=== PATIENT | female | born 1975 | race Caucasian/White ===

== ENCOUNTER 2024-05-06 12:21 | Emergency (ER) | payer OTHER, SELFPAY ==
[2024-05-06] VITALS (42 sets, daily range): BP systolic 104–148; BP diastolic 77–100; PULSE 100–128; TEMP 36.8; O2SAT 90–97; BMI 28.3
--- NOTE | 2024-05-06 12:26 | XR_ITS ---
The [address] [address] Patient Name: FLASH IRVING MRN: [id number] date: 1975 Sex: F Assigned Patient Location: ER Current Patient Location: ER Accession/Order Number: [id number] Exam Date: 05/06/2024 12:40 Report Date: 05/06/2024 13:48 At the request of: FABIANO SPANGLER Procedure: XR chest 1V EXAM: XR chest 1V HISTORY: SOB COMPARISON: None. TECHNIQUE: AP portable upright chest x-ray FINDINGS: Lungs are diffusely abnormal with groundglass density prominent markings most prominent left lower lung field also present on the right. Left upper lung field clear. Findings most suggestive of pneumonia may be bilateral although there may be a complement of chronic interstitial lung disease. Asymmetric edema from CHF felt to be less likely. Heart size enlarged. Right hilum prominent question prominent pulmonary artery or adenopathy/mass. No definite pleural effusion or pneumothorax. XR/XR chest 1V IMPRESSION: 1. Diffusely abnormal lung domínguez question bilateral pneumonia although there may be a component of chronic interstitial lung disease. Follow-up recommended. 2. Cardiac silhouette enlarged. 3 Prominent soft tissue right hilum question adenopathy/mass versus a prominent pulmonary artery. Electronically authenticated by: KRISH STALLINGS Date: 05/06/2024 13:48
--- NOTE | 2024-05-06 12:26 | ECG_ITS ---
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
[2024-05-06 12:43] LABS: Basophils Percent Auto 0.1 % (0.2-2.0); Eosinophils Absolute Auto 0.2 10^3/uL (0.0-0.7); Hematocrit 43.2 % (36.0-48.0); Hemoglobin 13.8 g/dL (12.0-16.0); Immature Granulocytes Abs Auto 0.07 10^3/uL (0.00-0.03); Immature Granulocytes Pct Auto 0.5 % (0.0-0.5); Lymphocytes Absolute Auto 1.4 10^3/uL (1.2-3.8); Lymphocytes Percent Auto 9.3 % (20.5-60.0); Mean Corpuscular HGB Conc 31.9 g/dL (29.9-35.2); Mean Corpuscular Hemoglobin 26.1 pg (26.7-34.0); Mean Corpuscular Volume 81.8 fL (81.0-99.0); Mean Platelet Volume 10.2 fL (9.5-13.5); Monocytes Absolute Auto 0.9 10^3/uL (0.3-0.8); Monocytes Percent Auto 6.1 % (1.7-12.0); Neutrophils Absolute Auto 12.8 10^3/uL (1.4-6.5); Platelet Count 185 10^3/uL (150-450); Red Blood Count 5.28 10^6/uL (4.20-5.40); Red Cell Distribution Width 14.1 % (11.0-15.0); White Blood Count 15.4 10^3/uL (4.0-11.0)
[2024-05-06 13:03] LABS: Anion Gap 11.4; BUN Creatinine Ratio 11.8; Calcium 8.8 mg/dL (8.5-10.1); Carbon Dioxide 27.5 mmol/L (21.0-32.0); Chloride 101 mmol/L (98-107); Estimated GFR (African America >60 (>=60); Estimated GFR (Non-African Ame >60 (>=60); Glucose 123 mg/dL (74-106); Sodium 137 mmol/L (136-145); Troponin I High Sensitivity 5.2 pg/mL (4.0-51.3)
[2024-05-06 13:05] LABS: Potassium 2.9 mmol/L (3.5-5.1)
[2024-05-06] MEDS: METHYLPREDNISOLONE SOD SUCC PF 125 MG/2 ML VIAL IVP (13:05)
[2024-05-06] MEDS: ALBUTEROL SULFATE 2.5 MG/3 ML VIAL NEB IH (13:06)
[2024-05-06] MEDS: MORPHINE SULFATE 4 MG/ML VIAL IV (13:37)
--- NOTE | 2024-05-06 13:51 | CT_ITS ---
The [address] [address] Patient Name: FLASH IRVING MRN: [id number] date: 1975 Sex: F Assigned Patient Location: ER Current Patient Location: Accession/Order Number: [id number] Exam Date: 05/06/2024 14:13 Report Date: 05/06/2024 15:21 At the request of: FABIANO SPANGLER Procedure: CT angio chest EXAM: CT angio chest TECHNIQUE: Axial CT angiogram technique imaging was obtained of the chest following intravenous contrast administration and including sagittal and coronal slab maximum intensity projection images. Dose reduction techniques were achieved by using automated exposure control and/or adjustment of mA and/or kV according to patient size and/or use of iterative reconstruction technique. 3-D volume rendering was created of the chest vasculature. HISTORY: History of pulmonary fibrosis, rule out PE COMPARISON: None. FINDINGS: Neck and Axilla: No lower neck or axillary lymphadenopathy. Mediastinum and Yulissa: No hilar or mediastinal lymphadenopathy. The esophagus is grossly unremarkable without dilatation or gross mass lesion. Heart and Major Vessels: The heart is enlarged. The aorta and central pulmonary arteries are unremarkable for size.No pulmonary artery filling defects to suggest acute pulmonary embolism. Evaluation of the pulmonary arteries is limited by low lung volumes and significant breathing motion artifact Lung Michael: Severe emphysematous change at the left lung apex and superior segment right lower lobe. Diffuse bilateral interstitial thickening. Groundglass attenuation throughout the right upper lobe in the lower lobes. Pleural Spaces: No significant pleural effusion. No pneumothorax. Upper Abdomen: Mildly displaced fracture of left second rib anteriorly, with sclerotic margins suggesting it is chronic and unhealed. Chest Wall: No acute abnormality. CT/CT angio chest IMPRESSION: No evidence for acute pulmonary embolism. Bilateral groundglass airspace disease and interstitial thickening suspicious for an atypical inflammatory or infectious process. Edema is possible. Overall evaluation is significantly limited by breathing motion artifact throughout the lower lungs. Unhealed chronic appearing fracture of left second rib anteriorly. Electronically authenticated by: GALDINO GALVAN Date: 05/06/2024 15:21
[2024-05-06] MEDS: CEFTRIAXONE 1,000 MG in 0.9 % SODIUM CHLORIDE 50 ML 100 MG IV (15:14)
--- NOTE | 2024-05-06 15:29 | ED.GENADUL1 ---
HPI HPI - General Adult General Chief complaint: Shortness of Breath/Dyspnea Stated complaint: SOB Time Seen by Provider: 05/06/24 12:22 Source: patient and family Mode of arrival: ambulance Limitations: no limitations History of Present Illness HPI narrative: 49-year-old female presents for shortness of breath. She has a history of pulmonary fibrosis and this came on this morning. She has some pain in the left upper part of her chest, no trauma. She has had no hemoptysis or known fever. She did have a pneumothorax years ago. No vomiting or diarrhea. Symptom has been continuous. Related Data Allergies Allergy/AdvReac Type Severity Reaction Status Date / Time nitroglycerin AdvReac Unknown Verified 05/06/24 12:28 Opioid HPI Opioid Management Most Recent Opioid Data: No Data to Display Review of Systems ROS Narrative A ten point review of systems is negative except as noted above. Exam Narrative Exam Narrative: Nurses note and vital signs reviewed and patient is not hypoxic. General: The patient appears dyspneic. Skin: Warm, dry, no pallor noted. There is no rash noted. No cyanosis Head: Normocephalic, atraumatic Eye: Normal conjunctiva, no drainage Ears, Nose, Mouth, and Throat: oral mucosa is moist. Nares patent. Cardiovascular: Regular Rate and Rhythm Respiratory: She is dyspneic. Breath sounds are diminished on the left upper part of her chest. Back: non-tender GI: Soft and nontender Musculoskeletal: The patient has no evidence of calf tenderness, no pitting edema, symmetrical pulses noted bilaterally Neurological: Awake and alert Psychiatric: Cooperative Constitutional Vital Signs, click to edit/add: Last Vital Signs Temp 98.3 F 05/06/24 12:22 Pulse 106 H 05/06/24 15:10 Resp 25 H 05/06/24 15:10 BP 120/81 05/06/24 15:16 Pulse Ox 92 L 05/06/24 15:10 O2 Del Method Nasal Cannula 05/06/24 13:07 O2 Flow Rate 5 05/06/24 13:07 Course Vital Signs Vital signs: Vital Signs Blood Pressure 148/100 H 05/06/24 12:21 Temperature 98.3 F 05/06/24 12:22 Pulse Rate 106 H 05/06/24 15:10 Respiratory Rate 25 H 05/06/24 15:10 Blood Pressure 120/81 05/06/24 15:16 Pulse Oximetry 92 L 05/06/24 15:10 Oxygen Delivery Method Nasal Cannula 05/06/24 13:07 Oxygen Delivery Flow Rate 5 05/06/24 13:07 Medical Decision Making MDM Narrative Medical decision making narrative: Extensive workup suggest pneumonia. She does not have a pneumothorax or pulmonary embolism. She was given IV Rocephin and Zithromax and IV morphine and she was feeling improved. She was also given aerosol treatment and IV Solu-Medrol. She is requesting transfer to [facility]. I have spoken to the hospitalist there and the patient is excepted. She is agreeable and stable for transfer. Differential Diagnosis Differential Diagnosis: PE, pneumothorax, pneumonia, pulmonary fibrosis exacerbation Lab Data Lab results reviewed: Yes I reviewed the patient's lab results Labs: Lab Results 05/06/24 Range/Units 12:30 WBC 15.4 H (4.0-11.0) 10^3/uL RBC 5.28 (4.20-5.40) 10^6/uL Hgb 13.8 (12.0-16.0) g/dL Hct 43.2 (36.0-48.0) % MCV 81.8 (81.0-99.0) fL MCH 26.1 L (26.7-34.0) pg MCHC 31.9 (29.9-35.2) g/dL RDW 14.1 (11.0-15.0) % Plt Count 185 (150-450) 10^3/uL MPV 10.2 (9.5-13.5) fL Neut % (Auto) 83.0 H (43.0-75.0) % Lymph % (Auto) 9.3 L (20.5-60.0) % [place] % (Auto) 6.1 (1.7-12.0) % Eos % (Auto) 1.0 (0.9-7.0) % Baso % (Auto) 0.1 L (0.2-2.0) % Neut # (Auto) 12.8 H (1.4-6.5) 10^3/uL Lymph # (Auto) 1.4 (1.2-3.8) 10^3/uL [place] # (Auto) 0.9 H (0.3-0.8) 10^3/uL Eos # (Auto) 0.2 (0.0-0.7) 10^3/uL Baso # (Auto) 0.0 (0.0-0.1) 10^3/uL Abs Immat Gran (auto) 0.07 H (0.00-0.03) 10^3/uL Imm/Tot Granulo (auto) 0.5 (0.0-0.5) % Sodium 137 (136-145) mmol/L Potassium 2.9 L* (3.5-5.1) mmol/L Chloride 101 (98-107) mmol/L Carbon Dioxide 27.5 (21.0-32.0) mmol/L Anion Gap 11.4 BUN 9.0 (7.0-18.0) mg/dL Creatinine 0.76 (0.55-1.02) mg/dL Est GFR ( Amer) >60 (>=60) Est GFR (Non-Af Amer) >60 (>=60) BUN/Creatinine Ratio 11.8 Glucose 123 H (74-106) mg/dL Calcium 8.8 (8.5-10.1) mg/dL Troponin I High Sens 5.2 (4.0-51.3) pg/mL Imaging Data Chest x-ray: Radiologist's impression: ITS Impressions Chest X-Ray 05/06/24 12:26 IMPRESSION: 1. Diffusely abnormal lung domínguez question bilateral pneumonia although there may be a component of chronic interstitial lung disease. Follow-up recommended. 2. Cardiac silhouette enlarged. 3 Prominent soft tissue right hilum question adenopathy/mass versus a prominent pulmonary artery. Electronically authenticated by: KRISH STALLINGS Date: 05/06/2024 13:48 Chest CTA 05/06/24 13:51 IMPRESSION: No evidence for acute pulmonary embolism. Bilateral groundglass airspace disease and interstitial thickening suspicious for an atypical inflammatory or infectious process. Edema is possible. Overall evaluation is significantly limited by breathing motion artifact throughout the lower lungs. Unhealed chronic appearing fracture of left second rib anteriorly. Electronically authenticated by: GALDINO GALVAN Date: 05/06/2024 15:21 ECG Data Attestation: I personally reviewed and interpreted this ECG as follows: (EKG on my interpretation shows sinus tachycardia with a rate of 114. No ST segment elevation) Critical Care Time Critical Care Time Critical Care Time: Yes Total Critical Care Time: 40 Attestation: Due to the high probability of sudden and clinically significant deterioration in the patient's condition he/she required the highest level of my preparedness to intervene urgently I provided critical care time including documentation time, medication orders and management, reevaluation, vital sign assessment, ordering and reviewing of lab tests, ordering and reviewing of x-ray studies, and admission orders. Aggregate critical care time is 40 minutes including only time during which I was engaged in work directly related to his/her care and did not include time spent treating other patients simultaneously. Discharge Plan Discharge Chief Complaint: Shortness of Breath/Dyspnea Clinical Impression: Pneumonia due to organism Patient Disposition: [facility] Time of Disposition Decision: 15:32 Discharge Location: [facility] Condition: Fair Mode of Transportation: EMS
[2024-05-06] MEDS: AZITHROMYCIN 500 MG in 0.9 % SODIUM CHLORIDE 250 ML 250 MG IV (15:45)
[2024-05-06] MEDS: POTASSIUM BICARBONATE/CIT 25 MEQ TABLET EFF 50 MEQ PO (16:35)
== END 2024-05-06 17:25 | disposition short-term general hospital (02) ==
PROVIDERS: Emergency Provider Emergency Medicine
DX: J18.9 Pneumonia, unspecified organism (principal); J84.10 Pulmonary fibrosis, unspecified
CPT/HCPCS: 36415; 71045; 71275; 80048; 84484; 85025; 87040; 93005; 94640; 96365; 96367; 96375; 99285; J0456; J0696; J2270; J2919; Q9967

== ENCOUNTER 2025-04-18 14:29 | Emergency (ER) | payer OTHER, SELFPAY ==
[2025-04-18 14:34] VITALS: BP 122/76; PULSE 114; TEMP 37.2; O2SAT 91; BMI 28.3
--- NOTE | 2025-04-18 14:48 | PC.NURSE ---
PT HAS A SUBQ DEVICE TO LEFT LOWER ABDOMEN THAT DELIVERS MEDICATION FOR PULMONARY HTN. PT STATES WHEN APPLIED DEVICE IS GOD FOR 8 WEEKS AND PT HAD DEVICE ON FOR 1 WEEK AND SKIN IS RED, TENDER AND HAD PURULENT DRAINAGE WHERE DEVICE WAS AT. 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
[2025-04-18] MEDS: LIDOCAINE HCL 1% PF 20 MG/2 ML VIAL INJ (14:59)
--- NOTE | 2025-04-18 15:22 | ED.GENADUL1 ---
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 Patient states that she has a subcutaneous pump for her pulmonary Irving hypertension. She has had recurrent soft tissue infections because of this. She states that over the last 3 days, she has had another infection on her abdominal wall. She since has changed the injection site. She states that she was able to drain a good amount of pus from the abscess earlier today. She denies any fevers or chills. She has no other systemic symptoms such as nausea, vomiting, constipation, diarrhea, chest pain, shortness of breath. She states she is short of breath, but this is chronic and at her baseline. Related Data Previous Rx's ?Medication ?Instructions ?Recorded sulfamethoxazole 800 1 tab PO Q12H 7 days #14 tabs 04/18/25 mg-trimethoprim 160 mg tablet (Bactrim DS) Allergies Allergy/AdvReac Type Severity Reaction Status Date / Time nitroglycerin AdvReac Unknown Verified 05/06/24 12:28 Review of Systems ROS Status of ROS 10 or more systems reviewed and unremarkable except as noted in history and below PFSH PFSH Social History Little interest or pleasure in doing things: not at all Feeling down, depressed, or hopeless: not at all Exam Narrative Exam Narrative: CONSTITUTIONAL: Well-appearing, answering questions and following commands appropriately SKIN: Was warm and dry. EYES: Sclerae white. EARS, NOSE, THROAT: Moist oral mucosa. RESPIRATORY: Clear to auscultation bilaterally, no wheezes, crackles, or stridor, no use of accessory muscles CARDIOVASCULAR: Normal rate and regular rhythm. There is no S3, S4, murmur, rub. GASTROINTESTINAL: On the anterior abdomen, a few centimeters left of midline, there is a annular area of erythema, induration, and mild fluctuance. There is no crepitus or purulent drainage. Her abdomen is soft and nontender otherwise without rebound tenderness or guarding. MUSCULOSKELETAL: No peripheral edema. NEUROLOGIC: Patient is awake and alert. Facies were symmetrical. Constitutional Vital Signs, click to edit/add: Last Vital Signs Temp 99.0 F 04/18/25 14:34 Pulse 114 H 04/18/25 14:34 Resp 24 H 04/18/25 14:34 BP 122/76 04/18/25 14:34 Pulse Ox 91 L 04/18/25 14:34 O2 Del Method Nasal Cannula 04/18/25 14:34 O2 Flow Rate 5 04/18/25 14:34 Course Vital Signs Vital signs: Vital Signs Temperature 99.0 F 04/18/25 14:34 Pulse Rate 114 H 04/18/25 14:34 Respiratory Rate 24 H 04/18/25 14:34 Blood Pressure 122/76 04/18/25 14:34 Pulse Oximetry 91 L 04/18/25 14:34 Oxygen Delivery Method Nasal Cannula 04/18/25 14:34 Oxygen Delivery Flow Rate 5 04/18/25 14:34 Temperature 99.0 F 04/18/25 14:34 Pulse Rate 114 H 04/18/25 14:34 Respiratory Rate 24 H 04/18/25 14:34 Blood Pressure 122/76 04/18/25 14:34 Pulse Oximetry 91 L 04/18/25 14:34 Oxygen Delivery Method Nasal Cannula 04/18/25 14:34 Oxygen Delivery Flow Rate 5 04/18/25 14:34 Medical Decision Making MDM Narrative Medical decision making narrative: Patient is a 50-year-old female presenting to the emergency department for evaluation of 3x days abdominal wall infection/abscess at the prior site of her subcutaneous pump site for PAH. Her vital signs are significant for mild tachycardia, otherwise were within normal limits. She is afebrile and hemodynamic stable. She is saturating 91% on her home oxygen requirements of 5 L nasal cannula. Examination was consistent with abdominal wall cellulitis. There is some underlying fluctuance to suggest an associated abscess. On bedside ultrasound, there is a small pocket of fluid approximately 1 cm deep. I did make a small 1 cm incision, but only had small amount of blood return. The patient did already drain a good amount of pus prior to ED arrival. I do feel the patient is stable for discharge. She displays no signs of sepsis or systemic symptoms. She was given a prescription for Bactrim DS twice daily x 7 days for abdominal abscess/cellulitis. Return precautions were given including any new or concerning symptoms. She was instructed follow-up with her outpatient doctors as previously scheduled. Patient understands and agrees to the plan. FINAL IMPRESSION: #Acute abdominal wall cellulitis and abscess DISPOSITION: Discharged home CONDITION: Good Discharge Plan Discharge Chief Complaint: Skin/Abscess/Foreign Body Clinical Impression: Cellulitis, Abscess of skin or subcutaneous tissue Patient Disposition: Home, Self-Care Time of Disposition Decision: 15:11 Condition: Good Mode of Transportation: Private Vehicle Prescriptions / Home Meds: New sulfamethoxazole-trimethoprim [Bactrim DS] 800-160 mg tablet 1 tab PO Q12H 7 Days Qty: 14 0RF Print Language: Azeri Instructions: Abscess (ED) Referrals: BUNNY PARKS [Primary Care Provider, Internal Medicine] - 1 week Discharge Date/Time: 04/18/25 15:18 Procedures ED ID Incision & Drainage I&D Type: abcess Site: abdomen Side (if applicable): left Anesthetic used: lidocaine 1% Technique: incised with #11 blade Amount of fluid (mL): 2 Irrigation: No Packing used: none Complications: bleeding (mild bleeding that is well controlled with pressure dressing.)
--- OUTSIDE RECORDS SUMMARY | 2025-04-18 18:46 | XMS_ITS | CCD ---
Author Organization [facility] Inform ion Partnership [facility] Care Team Providers Care Mill Supervisor Name Role Phone Fermin Pandya Unavailable Unavailable Stacy Moody Unavailable Unavailab le Stacy Moody Unavailable Unavailab le *SELF, REFERRED Unavailable Unavailable Fermin Pandya Unavailable Unavailable Stacy Moody Unavailable Unavailab le Chilo Santos Unavailable DO Jabari Celeste Primary Care Provider DO Jabari Celeste Attending Provider DO Jabari Celeste Primary Care Provider DO Gennaro Londono Attending Provider [phone] DO Jabari Celeste Attending Provider DO Jabari Celeste Primary Care Provider NON STAFF Attending Provider Unavailable MD Latha Bhagat Attending Provider [phone] DO Gennaro Londono Attending Provider DO Jabari Celeste Primary Care Provider MD Latha Bhagat Attending Provider DO Gennaro Londono Attending Provider MD Dariel Hicks Jr Emergency Provider MD Jazmin Snyder Admit Provider MD Jazmin Snyder Attending Provider [phone] [place] Nicole Other Provider MD Cherelle Trujillo Other Provider MD Chilo Santos Other Provider MD Norah Mullins Other Provider [phone] DO Tico Beaulieu Other Provider MD Nithya Roberts Other Provider MD Mat Rodriguez Other Provider [phone] MD Hebert Payne Other Provider DO Rohith Avina Other Provider DO Demetri Gonzalez Other Provider DO Jabari Celeste Attending Provider DO Jabari Celeste Primary Care Provider MD Olayinka Pulhellen P Attending Provider [phone] MD Jackson Borrero Attending Provider Jabari Celeste DO Primary Care Provider MD Mira Sun Admit Provider [phone] MD Chilo Santos Other Provider [phone] MD Letitia Cruz Attending Provider Jabari Celeste DO Unavailable [phone] Jabari Celeste DO Primary Care Provider [phone] Jabari Celeste DO Primary Care Provider Jacskon Borrero MD Attending Provider Mira Sun MD Admit Provider Chilo Santos MD Other Provider Letitia Cruz MD Attending Provider [phone] BELKIS ARANDA Attending Unavailable JABARI CELESTE Primary Care UnavailJABARI Mulligan Primary Care Unavailabl e SHUBHAM KNOX Attending Unavailable SELF Referring Unavailable SHUBHAM KNOX Attending Unavailable JABARI CELESTE Primary Care Unavailabl e SOUMYA, SHUBHAM Admitting Unavailable ROULA, JABARI HUGHES Primary Care Unavailabl e SOUMYA, SHUBHAM Attending Unavailable SOUMYA, SHUBHAM Admitting Unavailable SOUMYA, SHUBHAM Attending Unavailable SOUMYA, SHUBHAM Referring Unavailable ROULA, JABARI HUGHES Primary Care Unavailabl e SOUMYA, SHUBHAM Referring Unavailable SOUMYA, SHUBHAM Attending Unavailable ROULA, JABARI HUGHES Primary Care Unavailabl e SOUMYA, SHUBHAM Referring Unavailable ROULA, JABARI HUGHES Primary Care Unavailabl e SOUMYA, SHUBHAM Attending Unavailable SOUMYA, SHUBHAM Referring Unavailable ROULA, JABARI HUGHES Primary Care Unavailabl e SOUMYA, SHUBHAM Attending Unavailable ROULA, JABARI HUGHES Primary Care Unavailabl e Jabari Celeste DO Primary Care Provider Jabari Celeste DO Attending Provider Latha Bhagat MD Other Provider Gennaro Londono DO Attending Provider Mat Perez MD Emergency Provider Paddy Wiggins MD Admit Provider Paddy Wiggins MD Attending Provider Son Chávez MD Other Provider Jabari Celeste DO Primary Care Provider Jabari Celeste DO Attending Provider Latha Bhagat MD Other Provider Gennaro Londono DO Attending Provider [phone] Mat Perez MD Emergency Provider [phone] Paddy Wiggins MD Admit Provider Paddy Wiggins MD Attending Provider Son Chávez MD Other Provider Ernst Boone MD Attending Provider [phone] Jabari Celeste DO Primary Care Provider Jabari Celeste DO Primary Care Provider [phone] Gennaro Londono DO Attending Provider [phone] Jaime Meeks DO Emergency Provider Unavai bridget Celeste DO, [place] Primary Care Provider Danielle TURNER, Chilo Childs Attending Provider Ernst Boone MD Attending Provider Jaime Meeks DO Emergency Provider [facility] Celeste DO, Jabari Attending Provider Jc Astudillo RN Referring Provider [phone] Roula RIZO, [place] Primary Care Provider Devonte TURNER, Juliane Attending Provider [phone] Rios TURNER, Bunny [facility] Care Provider Jabari Celeste Attending Unavailable Jc Astudillo Referring Unavailable [facility] Care Unavailable [facility] Admitting Unavailable Juliane Whitney Attending Unavailabl Juliane Marcelino [facility] Un[facility] Care Unavailable OlayinkaLatha johnson P Consulting Unavailable [facility] Admitting Unavailable [facility] Primary Care Unavailable Gennaro Londono Attending Unavailable Gennaro Londono Admitting Unavailable Ernst Boone Attending Unavailable Ernst Boone Admitting Unavailable [facility] Primary Care Unavailable [facility] Primary Care Unavailable Jackson Borrero Admitting Unavailable Jackson Borrero Attending Unavailable Gennaro Londono Attending Unavailable Gennaro Londono Admitting Unavailable [facility] Primary Care Unavailable Ernst Boone Attending Unavailable Ernst Boone Admitting Unavailable [facility] Primary Care Unavailable [facility] Primary Care Unavailable Letitia Cruz Attending Unavailable Mira Sun Admitting Unavailable Chilo Santos Consulting Unavaila Paddy Frank Attending Unavailable Paddy Wiggins Admitting Unavailable [facility] Primary Care Unavailable Kyler Basem Consulting Unavailable [facility] Primary Care Unavailable Jackson Borrero Admitting Unavailable Jackson Borrero Attending Unavailable Jaime Meeks Attending Unavailable Jaime Meeks Admitting Unavailable Jabari Celeste Primary Care Unavailable Ernst Boone Attending Unavailable Ernst Boone Admitting Unavailable Jabari Celeste Primary Care Unavailable GENNARO LONDONO Attending Unavailable GENNARO LONDONO Attending Unavailable JABARI CELESTE Attending Unavailable JABARI CELESTE Referring Unavailable JABARI CELESTE Attending Unavailable GENNARO LONDONO Attending Unavailable JC ASTUDILLO Attending Unavailable [place] Referring Unavailable JABARI CELESTE Attending Unavailable JABARI CELESTE Referring Unavailable JABARI CELESTE Referring Unavailable JC ASTUDILLO Attending Unavailable Allergies Allergy Classification Reported Allergen(s) Allergy Type Date of Onset Reaction(s) Facility (3 sources) Sotatercept-Track Laying Supervisor k Propensity to adverse reactions Shortness of breath [facility] Medications Current Medications Medication Drug Class(es) Dates Sig (Normalized) Sig (Original) ALPRAZolam 0.5 mg oral tablet (20 sources) Benzodiazepine Start: 05-06-2024 take 0.125 mg by mouth once daily as needed for anxiety Start: 06-01-2023 ALPRAZolam (Xa nax) 0.5 MG tablet 1 (one) time each day at the same time 06/01/2023 Active Start: 06-01-2023 take 1 tablet by anette every eight hours as needed ALPRAZolam (XANAX) 0.5 mg tablet Take 0.5 mg by mouth three times a day as needed for anxiety. 06/01/2023 Active benoxinate hydrochloride 4 mg/ml / fluorescein sodium 3 mg/ml ophthalmic solution (2 sources) Diagnostic Dye Start: 06-14-2024 End: 06-14-2024 fluorescein-benoxinate 0.3-0.4 % 1 Drop (FLURESS) Start: 06-14-2024 End: 06-14-2024 1 Drop, BOTH EYES, DIRECT ED, Starting on Wed06/14/24 at 0630, Until Wed06/14/24 at 1829, Administer for applanation tonometry. In the event of a Fluress shortage, administer [place]-Fluor 1 drop into both eyes as directed for applanation tonometry Centrum - (10 sources) Centrum - as dir ected Orally Active cholecalciferol 0.05 mg oral capsule (10 sources) Vitamin D Start: 09-16-2017 Cholecalcifero l, Vitamin D3, 2,000 unit cap Indications: Vitamin D deficiency 2000 international units once daily with dinner 09/16/2017 Active ethinyl estradiol 0.035 mg / norethindrone acetate 1 mg oral tablet (20 sources) Estrogen Start: 08-07-2024 End: 09-19-2024 norethindrone-ethinyl estradiol (Nortrel 35, 28,) 1-35 MG-MCG tablet Indications: Encounter for surveillance of contraceptive pills Take 1 tablet by mouth Daily 84 tablet 3 09/19/2024 Active Start: 10-12-2023 take [id number] ug by mouth once daily in the morning Start: 09-08-2023 norethindrone- ethinyl estradiol (Nortrel 1/35, 28,) 1-35 MG-MCG tablet Indications: Encounter for surveillance of contraceptive pills Take 1 tablet by mouth in the morning. 90 tablet 3 09/08/2023 Active take 1 tablet by mouth once debra y Norethin-Eth Estrad Triphasic (ORTHO-NOVUM , 28,) 0.5/0.75/1 mg- 35 mcg per tablet Take 1 tablet by mouth once daily. Active furosemide 40 mg oral tablet (20 sources) Loop Diuretic Start: 10-16-2023 End: 04-13-2024 take 1 tablet by mouth once daily in the morning Start: 10-12-2023 End: 10-16-2023 take 1 tablet by mouth twice daily Furosemide (Lasix) 40 mg tablet Discontinued 40 MG PO Twice daily October 12, 2023 1:00am October 16, 2023 11:45am Start: 04-22-2020 End: 10-12-2023 take 1 tablet by mouth once daily Furosemide (Lasix) 40 mg tablet Discontinued 40 MG PO Daily April 22, 2020 12:00am October 12, 2023 11:46am MULTIVITAMIN TABLET (10 sources) Start: 08-28-2004 MULTIVITAMIN T ABLET Indications: Polymyositis (HCC) , Postinflammatory pulmonary fibrosis (HCC) Take one(1) tablet daily. 0 0 08/28/2004 Active mycophenolate mofetil 500 mg oral tablet (20 sources) Start: 05-15-2024 End: 05-15-2024 mycophenolate (CellCept) 500 MG tablet Indications: ILD (interstitial lung disease) (HCC) , Pulmonary fibrosis (HCC) Take 3 tablets (1,500 mg) by mouth in the morning and 3 tablets (1,500 mg) before bedtime. 3 tabs. 540 tablet 3 05/15/2024 Active Start: 03-01-2019 take 2 tablets by mo ut three times daily Start: 03-01-2019 take 1 tablet by anette four times daily Mycophenolate Mofetil (Cellcept) 500 mg Tablet Active 500 MG PO Four times daily February 28, 2019 11:00pm Start: 09-30-2016 take [address] [facility] twice daily mycophenolate Mofetil (CELLCEPT) 500 mg tablet Take 2 tablets by mouth twice daily. 120 tablet 6 09/30/2016 Active Oxygen (20 sources) Start: 03-07-2024 oxygen (O2) ga s 03/07/2024 Active Start: 03-07-2024 Oxygen Active 0 .Route March 07, 2024 1:57pm As directed [employer] she has a concentrator 5 liters at rest 6 liters with activity Start: 02-28-2024 End: 03-07-2024 Oxygen Discontinued 0 .Route February 28, 2024 12:00am March 07, 2024 1:58pm As directed [employer] she has a concentrator oxygen (O2) gas Inhale continuously. Active Oxygen 4 liters (10 sources) Oxygen 4 liters continuous Active Oxygen unit (20 sources) Start: 03-07-2024 Oxygen unit Ac tive 0 .Route March 07, 2024 1:57pm As directed [employer] she has a concentrator 5 liters at rest 6 liters with activity Start: 03-07-2024 Oxygen unit Ac tive 0 .Route March 07, 2024 12:57pm As directed [employer] she has a concentrator 5 liters at rest 6 liters with activity Start: 02-28-2024 End: 03-07-2024 Oxygen unit Discontinued 0 . Route February 28, 2024 12:00am March 07, 2024 1:58pm As directed [employer] she has a concentrator Start: 02-28-2024 End: 03-07-2024 Oxygen unit Discontinued 0 . Route February 27, 2024 11:00pm March 07, 2024 12:58pm As directed [facility] she has a concentrator OXYGEN, HOME THERAPY, (8 sources) OXYGEN, HOME THERAPY, 6 L/min by Nasal Cannula route continuous. Active pantoprazole 40 mg delayed release oral tablet (20 sources) Proton Pump Inhibitor Start: 11-27-19 take 1 tablet by mouth once daily in the morning Paxlovid 20 x 150 MG & 10 x 100MG (2 sources) Start: 09-08-19 22 Paxlovid 20 x 150 MG & 10 x 100MG as directed Orally Twice a day for 5 days Patient should cut her sildenafil dose in half (10 mg TID) starting now and while on the Paxlovid. Aug, Active potassium chloride 20 meq extended release oral tablet (20 sources) Start: 04-22-20 End: 04-13-20 take 1 tablet by mouth once daily in the morning prednisoLONE acetate 10 mg/ml ophthalmic suspension (8 sources) Corticosteroid Start: 06-17-20 End: 07-01-20 prednisoLONE acetate (PRED FORTE) 1 % ophthalmic suspension Use 1 Drop in both eyes four times daily. Bring to cataract surgery center. Start immediately following surgery 10 mL 1 07/01/2024 Active predniSONE 1 mg oral tablet (20 sources) Start: 03-09-20 predniSONE (Deltasone) 1 MG tablet 1 mg 4 (four) times a day W/ 5MG for 9MG daily 03/09/2025 Active Start: 03-09-2025 take 1 tablet by anette th once daily predniSONE (Deltasone) 5 MG tablet Take 5 mg by mouth Daily W/ 1MGx4 for 9MG daily 03/09/2025 Active Start: 05-12-2024 End: 10-04-2024 take 4 tablets by mouth once daily, then take 3 tablets by mouth once daily, then take 2 tablets by mouth once daily, then take 1 tablet by mouth once daily Prednisone 10 mg Tablet Discontinued 40 MG PO Daily Taper: Start: May 12, 2024 9:00am End: May 19, 2024 8:59am Frequency: DAILY Days: 7 Hours: 0 Dose: 40 Start: May 19, 2024 9:00am End: May 26, 2024 8:59am Frequency: DAILY Days: 7 Hours: 0 Dose: 30 Start: May 26, 2024 9:00am End: June 02, 2024 8:59am Frequency: DAILY Days: 7 Hours: 0 Dose: 20 Start: June 02, 2024 9:00am End: September 09, 2024 8:59am Frequency: DAILY Days: 99 Hours: 0 Dose: 10 65 May 12, 2024 12:00am October 04, 2024 6:23pm 40 mg daily for 7 days then 30 mg daily for 7 days then 20 mg daily for 7 days and then 10 mg daily to continue Please contact the information source for Taper Schedule details. Start: 05-12-2024 take 40 mg by mouth once daily, then take 30 mg by mouth once daily, then take 20 mg by mouth once daily, then take 10 mg by mouth once daily Prednisone Active 40 MG PO Daily 65 May 12, 2024 12:00am 40 mg daily for 7 days then 30 mg daily for 7 days then 20 mg daily for 7 days and then 10 mg daily to continue Start: 10-16-2023 End: 03-07-2024 Prednisone 10 mg tablet Disc ontinued 10 MG PO As Directed October 16, 2023 1:00am March 07, 2024 1:58pm Take 1 tablet 3 times a day for 5 days then 1 tablet twice a day for 5 days then 1 tablet daily Start: 09-10-2020 End: 04-03-2025 take 1 tablet by mouth once daily Prednisone 10 mg tablet Discontinued 10 MG PO Daily October 12, 2023 1:00am March 07, 2024 1:56pm On Hold: Resume on 10/31/23. rosuvastatin calcium 10 mg oral tablet (20 sources) HMG-CoA Reductase Inhibitor Start: 08-15-2024 take 1 tablet by mouth once daily rosuvastatin (Crestor) 10 MG tablet Indications: Mixed hyperlipidemia Take 1 tablet (10 mg) by mouth Daily 90 tablet 3 02/27/2025 Active sildenafil 20 mg oral tablet (20 sources) Phosphodiesterase 5 Inhibitor Start: 10-12-2023 take 1 tablet by mouth three times daily Sotatercept-Csrk (2 sources) Start: 11-28-2024 Sotatercept-Csrk (Winrevair) 45 mg kit Active MG SUBCUT November 28, 2024 12:00am Sotatercept-Csrk (3 sources) Start: 11-28-2024 Start: 11-28-2024 Sotatercept-Cs rk (Winrevair) 45 mg kit Active 45 MG SUBCUT Q21D November 28, 2024 12:00am spironolactone 25 mg oral tablet (20 sources) Aldosterone Antagonist Start: 04-23-2023 spironolactone (Aldactone) 25 MG tablet 1 tablet Orally 04/23/2023 Active treprostinil 10 mg/ml injectable solution (20 sources) Prostacycline Vasodilator Start: 10-12-2023 inject 10 mg by subcutaneous injection every hour treprostinil (Re modulin) 1 mg/mL as directed per pump 24hrs a day. Active treprostinil sod ium (REMODULIN) 1 mg/mL soln as directed Injection Active Remodulin 5 MG/M L as directed Subcutaneous per pump 94 Active Remodulin 5 MG/M L as directed Subcutaneous per pump 81 ng Active tropicamide 10 mg/ml ophthalmic solution (2 sources) Anticholinergic Start: 06-14-2024 End: 06-14-2024 tropicamide 1 % 1 Drop (MYDRIACYL) Start: 06-14-2024 End: 06-14-2024 1 Drop, BOTH EYES, DIRECT ED, Starting on Wed06/14/24 at 0630, Until Wed06/14/24 at 1829, Administer for dilation Completed/Discontinued Medications Medication Drug Class(es) Dates Sig (Normalized) Sig (Original) acetaminophen 325 mg oral tablet (3 sources) Start: 04-30-2019 End: 06-14-2024 take 2 tablets by mouth every four hours as needed acetaminophen (TYLENOL) 325 mg tablet Take 2 tablets by mouth every 4 hours as needed. 30 tablet 04/30/2019 06/14/2024 Discontinued (Course of therapy completed) acetaminophen 325 mg / HYDROcodone bitartrate 5 mg oral tablet (20 sources) Opioid Agonist Start: 04-24-2019 End: 04-17-2020 take 1 tablet by mouth every four hours as needed for pain Hydrocodone-Acetami nophen 5-325 mg Tablet Discontinued 1 TAB PO Q4H as needed for Pain Scale 1 - 5 0 April 24, 2019 April 17, 2020 1:47pm 200 actuat albuterol 0.09 mg/actuat dry powder inhaler (15 sources) beta2-Adrenergi c Agonist Start: 10-16-2023 End: 03-07-2024 take 90 ug by inhalation every four to six hours as needed Albuterol Sulfate (Proair Respiclick) 90 mcg/actuation aerosol powdr breath activated Discontinued 2 INH INHALATION EVERY 4-6 HOURS as needed for shortness of breath or wheezing October 16, 2023 1:00am March 07, 2024 1:54pm calcium citrate 1190 mg / cholecalciferol 0.005 mg oral tablet (20 sources) Vitamin D Start: 05-08-2020 End: 10-04-2024 take 1 tablet by mouth once daily in the morning Calcium Citrate-Vitamin D3 (Citracal Regular) 250 mg calcium- 200 unit Tablet Discontinued 1 TAB PO Every morning May 08, 2020 12:00am October 04, 2024 6:24pm take 1 tablet by anette th once in the morning Calcium Citrate-Vitamin D 250-5 MG-MCG t ablet Take 1 tablet by mouth in the morning. Active 12 hr dextromethorphan hydrobromide 30 mg / guaiFENesin 600 mg extended release oral tablet (20 sources) Uncompetitive R-gguhzi-W-aspartate Receptor Antagonist, Sigma-1 Agonist Start: 10-16-2023 End: 03-07-2024 take 1 tablet by mouth every twelve hours as needed for cough Dextromethorphan-Guaifenesin (Mucinex Dm) 30-600 mg Tablet Extended Release 12 Hr Discontinued 1 TAB PO Every 12 hours as needed for cough October 16, 2023 1:00am March 07, 2024 1:55pm Start: 04-24-2019 End: 05-08-2020 take 1 mL by mouth every six hours as needed for cough Dextromethorphan-Guaifenesin 10-100 mg/5 mL Syrup Discontinued 10 ML PO Q6H as needed for Cough 0 April 24, 2019 12:00am May 08, 2020 10:55am docusate sodium 50 mg / sennosides, halfway 8.6 mg oral tablet (20 sources) Start: 04-24-2019 End: 04-17-2020 take 2 tablets by mouth twice daily Sennosides-Docusate Sodium (Dok Plus) 8.6-50 mg Tablet Discontinued 2 TAB PO Twice daily 0 April 24, 2019 12:00am April 17, 2020 1:48pm ergocalciferol 1.25 mg oral capsule (5 sources) Provitamin D2 Compound Start: 06-10-2019 End: 06-21-2024 ergocalciferol 50,000 unit capsule (VITAMIN D2, DRISDOL) Indications: Vitamin D deficiency Take 1 capsule by mouth two times a week. (FOR EXAMPLE ONE CAPSULE ON WEDNESDAY AND ONE ON WEDNESDAY) FOR A TOTAL OF 8 WEEKS, WITH A MEAL 8 capsule 1 06/10/2019 06/21/2024 Discontinued (Course of therapy completed) esomeprazole 40 mg delayed release oral capsule (20 sources) Proton Pump Inhibitor Start: 03-01-2019 End: 10-12-2023 take 1 capsule by mouth once daily Esomeprazole Magnesium (Nexium) 40 mg Capsule,Delayed Release(Dr/Ec) Discontinued 40 MG PO Daily March 01, 2019 12:00am October 12, 2023 11:46am End: 06-14-2024 ESOMEPRAZOLE MAGNESIUM (NEXI UM ORAL) Take by mouth. 06/14/2024 Discontinued (Course of therapy completed) ESOMEPRAZOLE MAG NESIUM (NEXIUM ORAL) Take by mouth. Active 0.5 ml HYDROmorphone hydrochloride 1 mg/ml prefilled syringe (20 sources) Opioid Agonist Start: 04-24-2019 End: 04-17-2020 take 0.5 mg intravenously every four hours as needed for pain Hydromorphone 0.5 mg/0.5 mL Syringe Discontinued 0.5 MG IV-PUSH Q4H as needed for Pain Scale 6 - 10 0 April 24, 2019 April 17, 2020 1:47pm INV PREDNISONE 5 MG, 20 MG, OR [place]ACE[place] CAPSULE (IRB 23-781) (2 sources) Start: 03-07-2024 End: 06-14-2024 INV PREDNISONE 5 MG, 20 MG, OR PLACEBO CAPSULE (IRB 23-781) Take 10 capsules by mouth once daily. 03/07/2024 06/14/2024 Discontinued (Course of therapy completed) levoFLOXacin 500 mg oral tablet (15 sources) Quinolone Antimicrobial Start: 10-16-2023 End: 03-07-2024 take 1 tablet by mouth once daily Levofloxacin 500 mg tablet Discontinued 500 MG PO Daily 5 October 16, 2023 1:00am March 07, 2024 1:55pm magnesium hydroxide 80 mg/ml oral suspension (20 sources) Start: 04-24-2019 End: 04-17-2020 take 1 mL by mouth once daily as needed for constipation Magnesium Hydroxide (Milk Of Magnesia) 400 mg/5 mL Suspension Discontinued 30 ML PO Daily as needed for Constipation 0 April 24, 2019 12:00am April 17, 2020 1:47pm Sodium Chloride 0.9 % (Flush) (20 sources) Start: 04-24-2019 End: 04-17-2020 Sodium Chloride 0.9 % (Flush) (Bd Posiflush Normal Saline 0.9) Syringe Discontinued 10 ML IV-PUSH PRN as needed for Flush 0 April 24, 2019 12:00am April 17, 2020 1:48pm Start: 04-24-2019 End: 04-17-2020 Sodium Chloride 0.9 % (Flush ) (Bd Posiflush Normal Saline 0.9) Syringe Discontinued 10 ML IV-PUSH PRN as needed for Flush 0 April 23, 2019 11:00pm April 17, 2020 12:48pm Start: 04-24-2019 End: 04-17-2020 Sodium Chloride 0.9 % (Flush ) (Bd Posiflush Normal Saline 0.9) Syringe Discontinued 10 ML IV-PUSH PRN 0 April 23, 2019 11:00pm April 17, 2020 12:48pm Start: 04-24-2019 End: 04-17-2020 Sodium Chloride 0.9 % (Flush ) (Bd Posiflush Normal Saline 0.9) Syringe Discontinued 10 ML IV-PUSH PRN 0 April 24, 2019 12:00am April 17, 2020 1:48pm SQ PUMP (15 sources) Start: 10-12-2023 End: 10-12-2023 SQ PUMP Discontinued 2023 12:00am October 12, 2023 10:49am Start: 10-12-2023 End: 10-12-2023 SQ PUMP Discontinued 2023 1:00am October 12, 2023 11:49am sulfamethoxazole 400 mg / trimethoprim 80 mg oral tablet (20 sources) Dihydrofolate Reductase Inhibitor Antibacterial, Sulfonamide Antimicrobial Start: 05-08-2020 End: 10-12-2023 take 1 tablet by mouth once Sulfamethoxazole-Trimethoprim (Bactrim) 400-80 mg Tablet Discontinued 1 TAB PO every Wednesday, Wednesday, and Friday May 08, 2020 12:00am October 12, 2023 9:32am Problems Active Problems Problem Classification Problem Date Documented Date Episodic/Chronic Blindness and vision defects (2 sources) Blurring of visual image; Translations: [Other visual disturbances] 06-14-2024 Episodic Cataract (8 sources) Nuclear sclerotic cataract; Translations: [Age-related nuclear cataract, bilateral] Onset: 06-14-2024 06-14-2024 Chronic Chronic obstructive pulmonary disease and bronchiectasis (1 source) Chronic obstructive lung disease; Translations: [Chronic obstructive pulmonary disease, unspecified] 06-14-2024 Chronic Contraceptive and procreative management (1 source) Oral contraception; Translations: [Encounter for surveillance of contraceptive pills] 09-18-2024 Episodic Disorders of lipid metabolism (20 sources) Hypercholesterolemia; Translations: [Pure hypercholesterolemia, unspecified] Onset: 06-14-2024 06-14-2024 Chronic Esophageal disorders (20 sources) Gastroesophageal reflux disease without esophagitis; Translations: [Gastro-esophageal reflux disease without esophagitis] Onset: 03-23-2023 03-01-2019 Chronic Malaise and fatigue (16 sources) Chronic fatigue syndrome; Translations: [Chronic fatigue syndrome] Onset: 10-09-2021 Resolved: 12-02-2023 12-02-2023 Chronic Malaise and fatigue (2 sources) Fatigue; Translations: [Other fatigue] 05-15-2024 Episodic Nonspecific chest pain (20 sources) Chest pain; Translations: [Chest pain, unspecified] Onset: 10-04-2024 10-04-2024 Episodic Nutritional deficiencies (20 sources) Vitamin D deficiency; Translations: [Vitamin D deficiency, unspecified] Onset: 07-11-2014 07-11-2014 Chronic Osteoporosis (1 source) Age-related osteoporosis without current pathological fracture; Translations: [Age-related osteoporosis without current pathological fracture] Onset: 04-05-2025 Chronic Other aftercare (3 sources) Patient encounter status; Translations: [Other skilled nursing (current) drug therapy] 08-15-2024 Episodic Other aftercare (1 source) Other ferry terminal agent (current) drug therapy; Translations: [Other skilled nursing (current) drug therapy] Onset: 02-07-2025 Episodic Other circulatory disease (20 sources) Raynaud's phenomenon; Translations: [Raynaud's syndrome without gangrene] Onset: 09-16-2017 09-16-2017 Chronic Other lower respiratory disease (12 sources) Chronic interstitial lung disease; Translations: [Interstitial pulmonary disease, unspecified] 11-13-2024 Chronic Other lower respiratory disease (20 sources) Fibrosis of lung; Translations: [Pulmonary fibrosis, unspecified] Onset: 03-23-2023 10-24-2023 Chronic Other lower respiratory disease (16 sources) Interstitial pulmonary disease, unspecified; Translations: [Postinflammatory pulmonary fibrosis] Onset: 04-24-2019 Resolved: 03-10-2022 Chronic Other lower respiratory disease (20 sources) Interstitial lung disease; Translations: [Interstitial pulmonary disease, unspecified] Onset: 03-23-2023 03-01-2019 Chronic Other lower respiratory disease (11 sources) Pulmonary fibrosis, unspecified; Translations: [Postinflammatory pulmonary fibrosis] Onset: 04-21-2022 Resolved: 05-04-2022 Chronic Other lower respiratory disease (10 sources) Post-inflammatory pulmonary fibrosis; Translations: [Pulmonary fibrosis, unspecified] Onset: 08-28-2004 02-24-2024 Chronic Other lower respiratory disease (8 sources) Dyspnea; Translations: [Shortness of breath] 10-05-2024 Episodic Other nutritional; endocrine; and metabolic disorders (20 sources) Hypomagnesemia; Translations: [Hypomagnesemia] Onset: 09-18-2024 10-24-2023 Chronic Other nutritional; endocrine; and metabolic disorders (1 source) Hypomagnesemia; Translations: [Disorders of magnesium metabolism] 10-16-2023 Chronic Pleurisy; pneumothorax; pulmonary collapse (20 sources) Spontaneous pneumothorax; Translations: [Primary spontaneous pneumothorax] Onset: 04-24-2019 Resolved: 12-02-2023 04-19-2019 Episodic Comment on above: x2 2019 Pulmonary heart disease (20 sources) Pulmonary hypertension; Translations: [Pulmonary hypertension, unspecified] Onset: 07-23-2021 Resolved: 05-15-2024 Chronic Residual codes; unclassified (4 sources) Localized edema; Translations: [Edema of both lower legs] Onset: 03-10-2022 Resolved: 03-10-2022 Episodic Residual codes; unclassified (1 source) Bilateral lower leg edema; Translations: [Localized edema] 06-14-2024 Episodic Respiratory failure; insufficiency; arrest (adult) (20 sources) [id number]-wv-uqgqdvy respiratory failure; Translations: [Acute and chronic respiratory failure, unspecified whether with hypoxia or hypercapnia] Onset: 07-23-2021 10-24-2023 Chronic Systemic lupus erythematosus and connective tissue disorders (20 sources) Polymyositis; Translations: [Polymyositis, organ involvement unspecified] Onset: 08-28-2004 Resolved: 12-02-2023 Chronic Viral infection (1 source) Human papilloma virus infection; Translations: [Papillomavirus as the cause of diseases classified elsewhere] 04-03-2025 Episodic Past or Other Problems Problem Classification Problem Date Documented Date Episodic/Chronic Anxiety disorders (16 sources) Anxiety; Translations: [Anxiety disorder, unspecified] Onset: 02-23-2022 Resolved: 12-02-2023 12-02-2023 Chronic Cancer of cervix (2 sources) Cervical intraepithelial neoplasia grade 1; Translations: [Low grade squamous intraepithelial lesion on cytologic smear of cervix (LGSIL)] Onset: 09-27-2024 04-03-2025 Episodic Cardiac dysrhythmias (9 sources) Palpitations; Translations: [Palpitations] Onset: 10-09-2024 10-09-2024 Episodic Fluid and electrolyte disorders (20 sources) Hypervolemia; Translations: [Fluid overload, unspecified] Onset: 05-06-2024 Resolved: 02-13-2025 04-17-2020 Episodic Immunizations and screening for infectious disease (20 sources) Ro antibody positive; Translations: [Other specified abnormal immunological findings in serum] Onset: 10-03-2014 Resolved: 12-02-2023 10-03-2014 Episodic Other aftercare (20 sources) Drug therapy finding; Translations: [Other ferry terminal agent (current) drug therapy] Onset: 09-16-2017 09-16-2017 Episodic Other aftercare (16 sources) Post-discharge follow-up; Translations: [Encounter for follow-up examination after completed treatment for conditions other than malignant neoplasm] Onset: 10-21-2023 Resolved: 12-02-2023 12-02-2023 Episodic Other bone disease and musculoskeletal deformities (16 sources) Disorder of skeletal system; Translations: [Disorder of bone, unspecified] Onset: 05-30-2008 09-08-2023 Episodic Other ASSISTANT DIRECTOR OF SECURITY infection and poliomyelitis (16 sources) Acute poliomyelitis; Translations: [Acute poliomyelitis, unspecified] Onset: 09-07-2023 Resolved: 12-02-2023 12-02-2023 Episodic Other lower respiratory disease (20 sources) Nonspecific interstitial pneumonia; Translations: [Other specified interstitial pulmonary diseases] Onset: 01-10-2021 Resolved: 12-02-2023 04-24-2019 Chronic Other lower respiratory disease (16 sources) Cough; Translations: [Cough] Onset: 05-30-2008 Resolved: 08-15-2024 09-08-2023 Episodic Other lower respiratory disease (16 sources) Dyspnea on exertion; Translations: [Other forms of dyspnea] Onset: 03-11-2021 Resolved: 12-02-2023 12-02-2023 Episodic Other lower respiratory disease (16 sources) Parietoalveolar pneumopathy; Translations: [Other alveolar and parieto-alveolar conditions] Onset: 05-01-2020 Resolved: 12-02-2023 12-02-2023 Episodic Other lower respiratory disease (6 sources) Shortness of breath; Translations: [Shortness of breath] Onset: 10-04-2024 10-06-2024 Episodic Other screening for suspected conditions (not mental disorders or infectious disease) (2 sources) Cancer cervix screening status; Translations: [Encounter for screening for malignant neoplasm of cervix] Onset: 11-10-2024 09-18-2024 Episodic Residual codes; unclassified (20 sources) FH: Multiple sclerosis; Translations: [Family history of epilepsy and other diseases of the nervous system] Onset: 09-08-2023 04-24-2019 Episodic Residual codes; unclassified (20 sources) Bilateral lower limb edema; Translations: [Localized edema] Onset: 09-08-2023 05-15-2024 Episodic Screening and history of mental health and substance abuse codes (20 sources) Ex-smoker; Translations: [Personal history of nicotine dependence] Onset: 09-08-2023 04-24-2019 Episodic Results Test Name Value Interpretation Reference Range Facility NICOTINE/COTININE BLOODon COTININE, BLOOD ng/mL . ng/mL [facility] Comment on above: This test was develo ped and its performance characteristics determined by [facility]. It has not been cleared or approved by the Food and Drug Administration. Cotinine levels greater than 20.0 are consistent with the use of tobacco or tobacco cessation products. Performed at: [facility] [address] [id number] [employer] Operator: Angel Garcia MD, Phone: [phone] NICOTINE, BLOOD ng/mL . ng/mL [facility] Comment on above: This test was develo ped and its performance characteristics determined by [facility]. It has not been cleared or approved by the Food and Drug Administration. Nicotine levels greater than 2.0 are consistent with the use of tobacco or tobacco cessation products. [facility] A1C with Estimated Average G elyse 02-07-2025 Glucose [Mass/Vol] 114 mg/dL Normal [facility] Comment on above: Result Comment: PERF ORMED BY: [facility] [address] [place] [address] PATHOLOGIST POSITION CLASSIFIER BROWN LAUGHLIN M.D. Performed By: #### A 1C [facility] eA ####[id number] [place] [address] [facility] Alanine aminotransferase [En zymatic activity/volume] in Serum or PlasmaOrdered By: Jabari Celeste on 02-07-2025 ALT [Catalytic activity/Vol] 6 U/L Low 7-52 [facility] Comment on above: Performed By: #### L IPID, TSH3, CMP ####[place] [id number] [place] Albumin [Mass/volume] in Ser um or Plasma by Bromocresol green (BCG) dye binding methoOrdered By: Jabari Celeste on 02-07-2025 Albumin BCG dye [Mass/Vol] 4.1 g/dL 3.5-5.7 [facility] Alkaline phosphatase [Enzyma tic activity/volume] in Serum or PlasmaOrdered By: Jabari Celeste on 02-07-2025 ALP [Catalytic activity/Vol] 43 U/L Normal 34-104 [facility] Comment on above: Performed By: #### L IPID, TSH3, CMP ####[facility] Aspartate aminotransferase [ Enzymatic activity/volume] in Serum or PlasmaOrdered By: Jabari Celeste on 02-07-2025 AST [Catalytic activity/Vol] 10 U/L Low 13-39 [facility] Comment on above: Performed By: #### L IPID, TSH3, CMP ####[place] [id number] Bilirubin.total [Mass/volume ] in Serum or PlasmaOrdered By: Jabari Celeste on 02-07-2025 Bilirubin [Mass/Vol] 0.6 mg/dL Normal 0.3-1.0 [facility] Comment on above: Performed By: #### L JOE TSH3, CMP ####[place] [id number] Blood estimated average gluc ose determination by estimation from glycated hemoglobinOrdered By: Jabari Celeste on 02-07-2025 Average glucose Estimated from glycated hemoglobin (Bld) [Mass/Vol] 114 mg/dL [facility] Calcium [Mass/volume] in Ser um or PlasmaOrdered By: Jabari Celeste on 02-07-2025 Calcium [Mass/Vol] 8.8 mg/dL Normal 8.6-10.3 [facility] Comment on above: Performed By: #### L IPID, TSH3, CMP ####[address] Carbon dioxide, total [Moles /volume] in Serum or PlasmaOrdered By: Jabari Celeste on 02-07-2025 CO2 [Moles/Vol] 29.4 mmol/L Normal 21.0-31.0 [facility] Comment on above: Performed By: #### L IPID, TSH3, CMP ####[place] [address] Chloride [Moles/volume] in S luz maria or PlasmaOrdered By: Jabari Celeste on 02-07-2025 Chloride [Moles/Vol] 108 mmol/L High 98-107 [facility] Comment on above: Performed By: #### L IPID, TSH3, CMP ####[facility] [id number] [place] [id number] [place] Cholesterol [Mass/volume] in Serum or PlasmaOrdered By: Jabari Celeste on 02-07-2025 Cholesterol [Mass/Vol] 151 mg/dL Normal 140-200 [facility] Comment on above: Chol less than 200 m g/dl low riskChol 201-239 mg/dl borderline riskChol 240 mg/dl and greater high risk Result Comment: Chol less than 200 mg/dl low risk Chol 201-239 mg/dl borderline risk Chol 240 mg/dl and greater high risk Performed By: #### L IPID, TSH3, CMP ####[facility] [place] [id number] [facility] Cholesterol in HDL [Mass/vol ume] in Serum or PlasmaOrdered By: Jabari Celeste on 02-07-2025 Cholesterol in HDL [Mass/Vol] 51 mg/dL Normal 23-92 [facility] Comment on above: HDL CHOL ATP-III CLA SSIFICATION Cardiovascular RiskHDL > or equal to 60 mg/dL LOWHDL < 40 mg/dL HIGH Result Comment: HDL CHOL ATP-III CLASSIFICATION Cardiovascular Risk HDL > or equal to 60 mg/dL LOW HDL < 40 mg/dL HIGH Performed By: #### L IPID, TSH3, CMP ####[facility] [place] [id number] [place] Cholesterol in LDL Calc [Mas s/Vol]Ordered By: Jabari Celeste on 02-07-2025 Cholesterol in LDL [Mass/Vol] 80 mg/dL 0-100 [facility] Comment on above: LDL ATP III CLASSIFI CATIONLDL less than 100 mg/dL OptimalLDL 100-129 mg/dL Near or above optimalLDL 130-159 mg/dL Borderline highLDL 160-189 mg/dL HighLDL greater than 189 mg/dL Very high Cholesterol in VLDL Calc [Ma ss/Vol]Ordered By: Jabari Celeste on 02-07-2025 Cholesterol in VLDL [Mass/Vol] 20 mg/dL [facility] Comprehensive Metabolic Pane ceferino 02-07-2025 Albumin [Mass/Vol] 4.1 g/dL Normal 3.5-5.7 [facility] Comment on above: Performed By: #### L IPID, TSH3, CMP ####[facility] GFR/1.73 sq M.predicted MDRD (S/P/Bld) [Vol rate/Area] mL/min/{1.73_m2} Normal [facility] Comment on above: Performed By: #### L IPID, TSH3, CMP ####[facility] Cotinine [Mass/volume] in Se rum or PlasmaOrdered By: Jabari Celeste on 02-07-2025 Cotinine [Mass/Vol] <1.0 ng/mL . [facility] Comment on above: This test was develo ped and its performance characteristicsdetermined by [facility]. It has not been cleared orapproved by the Food and Drug Administration.Cotinine levels greater than 20.0 are consistent with theuse of tobacco or tobacco cessation products.Performed at: [address] [id number] Director: Angel Garcia MD, Phone: [phone] Creatinine [Mass/volume] in Serum or PlasmaOrdered By: Jabari Celeste on 02-07-2025 Creatinine [Mass/Vol] 0.67 mg/dL Normal 0.60-1.20 [facility] Comment on above: Performed By: #### L IPID, TSH3, CMP ####[facility] Erythrocyte distribution wid th [Ratio] by Automated countOrdered By: Jabari Celeste on 02-07-2025 Erythrocyte distribution width (RBC) [Ratio] 15.7 % High 11.9-15.3 [facility] Comment on above: Performed By: #### C BCNO #### [facility] [address] Erythrocytes [#/volume] in B lood by Automated countOrdered By: Jabari Celeste on 02-07-2025 RBC (Bld) [#/Vol] 5.55 10*6/uL High 3.60-5.00 [facility] Comment on above: Performed By: #### C BCNO #### [facility] [address] [place] [address] [place] Glucose [Mass/volume] in Ser um or PlasmaOrdered By: Jabari Celeste on 02-07-2025 Glucose [Mass/Vol] 82 mg/dL Normal 70-100 [facility] Comment on above: ADA recommended refe rence rangeRandom Glucose Reference Range is dependent on time and content of last meal. Glucose of more than 200 mg/dL in a nonstressed, ambulatory subject supports the diagnosis of Diabetes Mellitus. Result Comment: [place] om Glucose Reference Range is dependent on time and content of last meal. Glucose of more than 200 mg/dL in a nonstressed, ambulatory subject supports the diagnosis of Diabetes Mellitus. ADA recommended reference range Performed By: #### L IPID, TSH3, CMP ####[address] Hematocrit [Volume Fraction] of Blood by Automated countOrdered By: Jabari Celeste on 02-07-2025 Hematocrit (Bld) [Volume fraction] 42.9 % Normal 34.0-46.4 [facility] Comment on above: Performed By: #### C BCNO #### [facility] [address] Hemoglobin A1c/Hemoglobin.to raghav in BloodOrdered By: Jabari Celeste on 02-07-2025 HbA1c (Bld) [Mass fraction] 5.6 % Normal 4.3-5.6 [facility] Comment on above: Increased risk for d iabetes: 5.7 - 6.4diabetes: >6.4glycemic control for adults with diabetes: <7.0 Result Comment: Incr eased risk for diabetes: 5.7 - 6.4 diabetes: >6.4 glycemic control for adults with diabetes: <7.0 Performed By: #### A 1C WTH eA ####[facility] Hemoglobin [Mass/volume] in BloodOrdered By: Jabari Celeste on 02-07-2025 Hemoglobin (Bld) [Mass/Vol] 14.0 g/dL Normal 11.8-15.4 [facility] Comment on above: Performed By: #### C BCNO #### [facility] [address] Hemogram CBC Without Diffon 02-07-2025 Mean Corpuscular HGB Conc 32.8 g/dL Normal 32.0-35.0 [facility] Comment on above: Performed By: #### C BCNO #### [facility] [address] White Blood Count 9.9 [CFU]/mL Normal 3.8-11.6 [facility] Comment on above: Performed By: #### C BCNO #### [address] Leukocytes [#/volume] correc steff for nucleated erythrocytes in Blood by Automated counOrdered By: Jabari Celeste on 02-07-2025 WBC corrected for nucl RBC Auto (Bld) [#/Vol] 9.9 10*3/uL 3.8-11.6 [facility] Lipid Panelon 02-07-2025 LDL Cholesterol,Calculated 80 mg/dL Normal 0-100 [facility] Comment on above: Result Comment: LDL ATP III CLASSIFICATION LDL less than 100 mg/dL Optimal LDL 100-129 mg/dL Near or above optimal LDL 130-159 mg/dL Borderline high LDL 160-189 mg/dL High LDL greater than 189 mg/dL Very high Performed By: #### L IPID, TSH3, CMP ####[address] Triglyceride w/Reflex 100 mg/dL Normal 0-149 [facility] Comment on above: Result Comment: TRIG ATP III CLASSIFICATION TRIG less than 150 mg/dL Normal TRIG 150-199 mg/dL Borderline high TRIG 200-500 mg/dL High TRIG greater than 500 mg/dL Very high Standard traceable to the Center for Disease Conrtrol and Prevention (CDC) test method. Performed By: #### L IPID, TSH3, CMP ####[facility] [place] [address] [place] VLDL CHOLESTEROL 20 mg/dL Normal [facility] Comment on above: Performed By: #### L IPID, TSH3, CMP ####[facility] [id number] MCH [Entitic mass] by Automa steff countOrdered By: Jabari Celeste on 02-07-2025 MCH (RBC) [Entitic mass] 25.3 pg Normal 24.7-34.3 [facility] Comment on above: Performed By: #### C BCNO #### [facility] [address] MCHC Auto (RBC) [Mass/Vol]Or dered By: Jabari Celeste on 02-07-2025 MCHC (RBC) [Mass/Vol] 32.8 g/dL 32.0-35.0 [facility] MCV [Entitic volume] by Auto mated countOrdered By: Jabari Celeste on 02-07-2025 MCV (RBC) [Entitic vol] 77.2 fL Low 80-100 [facility] Comment on above: Performed By: #### C BCNO #### [facility] [address] Nicotine [Mass/volume] in Se rum or PlasmaOrdered By: Jabari Celeste on 02-07-2025 Nicotine [Mass/Vol] <1.0 ng/mL . [facility] Comment on above: This test was develo ped and its performance characteristicsdetermined by [facility]. It has not been cleared orapproved by the Food and Drug Administration.Nicotine levels greater than 2.0 are consistent with theuse of tobacco or tobacco cessation products. Nicotine/Cotinine Bloodon Cotinine, Blood <1.0 Normal . [facility] Comment on above: Result Comment: This test was developed and its performance characteristics determined by [facility]. It has not been cleared or approved by the Food and Drug Administration. Cotinine levels greater than 20.0 are consistent with the use of tobacco or tobacco cessation products. Performed at: [address] [id number] [employer] Operator: Angel Garcia MD, Phone: [phone] PERFORMED BY: [place] [address] PATHOLOGIST POSITION CLASSIFIER BROWN LAUGHLIN M.D. Performed By: #### N ICOTINE ####[facility] , Nicotine, Blood <1.0 Normal . [facility] Comment on above: Result Comment: This test was developed and its performance characteristics determined by [facility]. It has not been cleared or approved by the Food and Drug Administration. Nicotine levels greater than 2.0 are consistent with the use of tobacco or tobacco cessation products. Performed By: #### N ICOTINE ####[facility] , No Panel InformationOrdered By: Jabari Celeste on 02-07-2025 Estimated GFR (CKD-EPI) > 60.0 mL/Min [facility] Creatinine Clearance (Chem N/A [facility] Platelet mean volume [Entiti c volume] in Blood by Automated countOrdered By: Jabari Celeste on 02-07-2025 Platelet mean volume (Bld) [Entitic vol] 7.7 fL Normal 6.3-10.7 [facility] Comment on above: Result Comment: PERF ORMED BY: [place] [address] PATHOLOGIST POSITION CLASSIFIER BROWN LAUGHLIN M.D. Performed By: #### C BCNO #### [facility] [address] [place] [address] [place] Platelets [#/volume] in Bloo d by Automated countOrdered By: Jabari Celeste on 02-07-2025 Platelets (Bld) [#/Vol] 201 10*3/uL Normal 150-450 [facility] Comment on above: Performed By: #### C BCNO #### [facility] [address] [place] [address] [place] Potassium [Moles/volume] in Serum or PlasmaOrdered By: Jbaari Celeste on 02-07-2025 Potassium [Moles/Vol] 4.1 mmol/L Normal 3.5-5.1 [facility] Comment on above: Performed By: #### L IPID, TSH3, CMP ####[address] Protein [Mass/volume] in Ser um or PlasmaOrdered By: Jabari Celeste on 02-07-2025 Protein [Mass/Vol] 6.0 g/dL Low 6.4-8.9 [facility] Comment on above: Performed By: #### L IPID, TSH3, CMP ####[address] Serum globulin measurement b y calculation (mass/volume)Ordered By: Jabari Celeste on 02-07-2025 Globulin (S) [Mass/Vol] 1.9 g/dL Normal [facility] Comment on above: Performed By: #### L IPID, TSH3, CMP ####[address] Serum or plasma albumin/glob ulin mass ratioOrdered By: Jabari Celeste on 02-07-2025 Albumin/Globulin [Mass ratio] 2.2 {ratio} Normal [facility] Comment on above: Performed By: #### L IPID, TSH3, CMP ####[address] Serum or plasma anion gap de terminationOrdered By: Jabari Celeste on 02-07-2025 Anion gap [Moles/Vol] 10.7 mmol/L Normal 6.0-15.0 [facility] Comment on above: Performed By: #### L IPID, TSH3, CMP ####[address] Serum or plasma total choles terol/high density lipoprotein (HDL) cholesterol mass ratOrdered By: Jabari Celeste on 02-07-2025 Cholesterol.total/Chol esterol in HDL [Mass ratio] 3.0 {ratio} Normal <5.0 [facility] Comment on above: Performed By: #### L IPID, TSH3, CMP ####[address] Sodium [Moles/volume] in Ser um or PlasmaOrdered By: Jabari Celeste on 02-07-2025 Sodium [Moles/Vol] 144 mmol/L Normal 136-145 [facility] Comment on above: Performed By: #### L IPID, TSH3, CMP ####[facility] Thyrotropin [Units/volume] i n Serum or PlasmaOrdered By: Jabari Celeste on 02-07-2025 TSH Qn 1.83 m[IU]/L Normal 0.45-5.33 [facility] Comment on above: Result Comment: PERF ORMED BY: [place] [address] PATHOLOGIST POSITION CLASSIFIER BROWN LAUGHLIN M.D. Performed By: #### B MP #### [address] Triglyceride [Mass/volume] i n Serum or PlasmaOrdered By: Jabari Celeste on 02-07-2025 Triglyceride [Mass/Vol] 100 mg/dL 0-149 [facility] Comment on above: TRIG ATP III CLASSIF ICATIONTRIG less than 150 mg/dL NormalTRIG 150-199 mg/dL Borderline highTRIG 200-500 mg/dL High TRIG greater than 500 mg/dL Very highStandard traceable to the Center for Disease Conrtrol and Prevention (CDC) test method. Urea nitrogen [Mass/volume] in Serum or PlasmaOrdered By: Jabari Celeste on 02-07-2025 Urea nitrogen [Mass/Vol] 10 mg/dL Normal 7-25 [facility] Comment on above: Performed By: #### L IPID, TSH3, CMP ####[facility] [id number] [facility] BNP ser/plasOrdered By: Alexis Meeks on 01-15-2025 Natriuretic peptide B (Bld) [Mass/Vol] 17.0 pg/mL Normal 5-100 [facility] Comment on above: Result Comment: PERF ORMED BY: [facility] [address] [place] [address] PATHOLOGIST POSITION CLASSIFIER BROWN S TRUMAN M.D. Performed By: #### B MP #### [address] Basic Metabolic Panelon Creatinine Clr Calc Pharmacy 87.90 Normal [facility] Comment on above: Result Comment: PERF ORMED BY: [place] [address] PATHOLOGIST POSITION CLASSIFIER BROWN LAUGHLIN M.D. Performed By: #### B MP #### [address] GFR/1.73 sq M.predicted MDRD (S/P/Bld) [Vol rate/Area] mL/min/{1.73_m2} Normal [facility] Comment on above: Performed By: #### B MP #### [address] Basophils Auto (Bld) [#/Vol] Ordered By: Jaime Meeks on 01-15-2025 Basophils (Bld) [#/Vol] Automated basophil count 0.0-0.2 [facility] Basophils [#/volume] in Bloo d by Automated countOrdered By: Jaime Meeks on 01-15-2025 Basophils (Bld) [#/Vol] 0.1 10*3/uL Normal 0.0-0.2 [facility] Comment on above: Result Comment: PERF ORMED BY: [place] [address] PATHOLOGIST POSITION CLASSIFIER BROWN LAUGHLIN M.D. Performed By: #### B MP #### [address] Basophils/100 WBC Auto (Bld) Ordered By: Jaime Meeks on 01-15-2025 Basophils/100 WBC (Bld) Automated basophil % . [facility] Basophils/100 leukocytes in Blood by Automated countOrdered By: Jaime Meeks on 01-15-2025 Basophils/100 WBC (Bld) 1.1 % Normal . [facility] Comment on above: Performed By: #### B MP #### [address] [place] [address] [place] Calcium [Mass/volume] in Ser um or PlasmaOrdered By: Jaime Meeks on 01-15-2025 Calcium [Mass/Vol] Calcium [Mass/volume ] in Serum or Plasma 8.6-10.3 [facility] Calcium [Mass/Vol] 9.0 mg/dL Normal 8.6-10.3 [facility] Comment on above: Performed By: #### B MP #### [address] Carbon dioxide, total [Moles /volume] in Serum or PlasmaOrdered By: Jaime Meeks on 01-15-2025 CO2 [Moles/Vol] Carbon dioxide, tota l [Moles/volume] in Serum or Plasma 21.0-31.0 [facility] CO2 [Moles/Vol] 26.6 mmol/L Normal 21.0-31.0 [facility] Comment on above: Performed By: #### B MP #### [address] Chloride [Moles/volume] in S luz maria or PlasmaOrdered By: Jaime Meeks on 01-15-2025 Chloride [Moles/Vol] Chloride [Moles/vol ume] in Serum or Plasma 98-107 [facility] Chloride [Moles/Vol] 107 mmol/L Normal 98-107 [facility] Comment on above: Performed By: #### B MP #### [address] Complete Blood Count Auto Di ffon 01-15-2025 Mean Corpuscular HGB Conc 32.9 g/dL Normal 32.0-35.0 [facility] Comment on above: Performed By: #### B MP #### [address] Monocytes/100 WBC (Bld) 17.33 % Normal 0.00-20.00 [facility] Comment on above: Performed By: #### B MP #### [address] NRBC% 0.0 /100{WBC} Normal 0-0.5 [facility] Comment on above: Performed By: #### B MP #### [address] Creatine kinase [Enzymatic a ctivity/volume] in Serum or PlasmaOrdered By: Jaime Meeks on 01-15-2025 CK [Catalytic activity/Vol] Creatine kinase [Enzymatic activity/volume] in Serum or Plasma Low 30-223 [facility] CK [Catalytic activity/Vol] 22 U/L Low 30-223 [facility] Comment on above: Performed By: #### B MP #### [address] Creatinine [Mass/volume] in Serum or PlasmaOrdered By: Jaime Meeks on 01-15-2025 Creatinine [Mass/Vol] Creatinine [Mass/v olume] in Serum or Plasma 0.60-1.20 [facility] Creatinine [Mass/Vol] 0.70 mg/dL Normal 0.60-1.20 [facility] Comment on above: Performed By: #### B MP #### [address] D-Dimer High Sensitivityon 0 01-15-2025 D-Dimer High Sensitivity <200 Normal 0-243 [facility] Comment on above: Result Comment: The reference range for D-dimer is <243 ng/mL D-dimer units. D-dimer results must be used in conjunction with a clinical pretest probability (PTP) assessment model for deep vein thrombosis (DVT) and pulmonary embolism (PE). Results <230 ng/mL d-dimer units can be used as a negative predictor in patients with low or moderate probability for DVT/PE. Results above the exclusion threshold of 230 ng/ml D-dimer units for DVT/PE may indicate the need for further diagnostic testing. D-Dimer can be increased in hospitalized patients due to co-morbid conditions. A hematocrit value greater than 55% may lead to inaccurate results in coagulation testing. Patients having hematocrit values >55% require a special collection tube for coagulation studies. Please contact the laboratory at [phone] for redraw instructions. PERFORMED BY: [place] [address] PATHOLOGIST POSITION CLASSIFIER BROWN LAUGHLIN M.D. Performed By: #### B MP #### [address] ECG 12 lead ECGon 01-15-2025 ECG 12 lead ECG [facility] [place] [address] [place] [address] Electrocardiograph Report Signed Patient: Flash Irving MR#: [id number] 6 : 1975 Acct:[id number] Age/Sex: 49 / F ADM Date: 01/15/25 Loc: ER Room: Type: [facility] ER Attending Dr: Ordering Provider: Jaime Meeks DO Date of Service: 01/15/2510/10/416 ECG/ECG 12 lead ECG: Chest Pain Copies to: Test Reason : Blood Pressure : 149/73 mmHG Vent. Rate : 105 BPM Atrial Rate : 105 BPM P-R Int : 176 ms QRS Dur : 62 ms QT Int : 324 ms P-R-T Axes : 55 133 31 degrees QTcB Int : 428 ms Sinus tachycardia Septal infarct (cited on or before 04-Oct-2024) Confirmed by Jaime Meeks DO ([id number]) on 01/16/2025 1:59:37 AM Referred By: Electronically Signed By: Jaime Mekes DO Transcribed By: MUS Signed By Jaime Meeks DO 0159 Normal [facility] Eosinophils Auto (Bld) [#/Vo l]Ordered By: Jaime Meeks on 01-15-2025 Eosinophils (Bld) [#/Vol] Automated eosinophil count 0.0-0.45 [facility] Eosinophils [#/volume] in Bl ood by Automated countOrdered By: Jaime Meeks on 01-15-2025 Eosinophils (Bld) [#/Vol] 0.1 10*3/uL Normal 0.0-0.45 [facility] Comment on above: Performed By: #### B MP #### [place] [address] [place] Eosinophils/100 WBC Auto (Bl d)Ordered By: Jaime Meeks on 01-15-2025 Eosinophils/100 WBC (Bld) Automated eosinophil % . [facility] Eosinophils/100 leukocytes i n Blood by Automated countOrdered By: Jaime Meeks on 01-15-2025 Eosinophils/100 WBC (Bld) 1.2 % Normal . [facility] Comment on above: Performed By: #### B MP #### [address] Erythrocyte distribution wid th Auto (RBC) [Ratio]Ordered By: Jaime Meeks on 01-15-2025 Erythrocyte distribution width (RBC) [Ratio] Erythrocyte distribution width [Ratio] by Automated count 11.9-15.3 [facility] Erythrocyte distribution wid th [Ratio] by Automated countOrdered By: Jaime Meeks on 01-15-2025 Erythrocyte distribution width (RBC) [Ratio] 14.9 % Normal 11.9-15.3 [facility] Comment on above: Performed By: #### B MP #### [address] Erythrocytes [#/volume] in B lood by Automated countOrdered By: Jaime Meeks on 01-15-2025 RBC (Bld) [#/Vol] 5.62 10*6/uL High 3.60-5.00 [facility] Comment on above: Performed By: #### B MP #### [address] Fibrin D-dimer [Presence] in Platelet poor plasma by Latex agglutinationOrdered By: Jaime Meeks on 01-15-2025 Fibrin D-dimer LA Ql (PPP) Fibrin D-dimer [Presence] in Platelet poor plasma by Latex agglutination 0-243 [facility] Comment on above: The reference range for D-dimer is <243 ng/mL D-dimer units.D-dimer results must be used in conjunction with a clinicalpretest probability (PTP) assessment model for deep veinthrombosis (DVT) and pulmonary embolism (PE). Results <230ng/mL d-dimer units can be used as a negative predictor inpatients with low or moderate probability for DVT/PE.Results above the exclusion threshold of 230 ng/ml D-dimerunits for DVT/PE may indicate the need for furtherdiagnostic testing.D-Dimer can be increased in hospitalized patients due toco-morbid conditions.A hematocrit value greater than 55% may lead to inaccurate results in coagulation testing. Patients having hematocrit values >55% require a special collection tube for coagulation studies. Please contact the laboratory at [phone] for redraw instructions. Fibrin D-dimer LA Ql (PPP) < 200 ng/mL 0-243 [facility] Comment on above: The reference range for D-dimer is <243 ng/mL D-dimer units.D-dimer results must be used in conjunction with a clinicalpretest probability (PTP) assessment model for deep veinthrombosis (DVT) and pulmonary embolism (PE). Results <230ng/mL d-dimer units can be used as a negative predictor inpatients with low or moderate probability for DVT/PE.Results above the exclusion threshold of 230 ng/ml D-dimerunits for DVT/PE may indicate the need for furtherdiagnostic testing.D-Dimer can be increased in hospitalized patients due toco-morbid conditions.A hematocrit value greater than 55% may lead to inaccurate results in coagulation testing. Patients having hematocrit values >55% require a special collection tube for coagulation studies. Please contact the laboratory at [phone] for redraw instructions. Glucose [Mass/volume] in Ser um or PlasmaOrdered By: Jaime Meeks on 01-15-2025 Glucose [Mass/Vol] Glucose [Mass/volume ] in Serum or Plasma 70-100 [facility] Comment on above: ADA recommended refe rence rangeRandom Glucose Reference Range is dependent on time and content of last meal. Glucose of more than 200 mg/dL in a nonstressed, ambulatory subject supports the diagnosis of Diabetes Mellitus. Glucose [Mass/Vol] 86 mg/dL Normal 70-100 [facility] Comment on above: ADA recommended refe rence rangeRandom Glucose Reference Range is dependent on time and content of last meal. Glucose of more than 200 mg/dL in a nonstressed, ambulatory subject supports the diagnosis of Diabetes Mellitus. Result Comment: [place] Glucose Reference Range is dependent on time and content of last meal. Glucose of more than 200 mg/dL in a nonstressed, ambulatory subject supports the diagnosis of Diabetes Mellitus. ADA recommended reference range Performed By: #### B MP #### [address] Hematocrit Auto (Bld) [Volum e fraction]Ordered By: Jaime Meeks on 01-15-2025 Hematocrit (Bld) [Volume fraction] Hematocrit [Volume Fraction] of Blood by Automated count 34.0-46.4 [facility] Hematocrit [Volume Fraction] of Blood by Automated countOrdered By: Jaime Meeks on 01-15-2025 Hematocrit (Bld) [Volume fraction] 43.1 % Normal 34.0-46.4 [facility] Comment on above: Performed By: #### B MP #### [address] Hemoglobin [Mass/volume] in BloodOrdered By: Jaime Meeks on 01-15-2025 Hemoglobin (Bld) [Mass/Vol] Hemoglobin [Mass/volume] in Blood 11.8-15.4 [facility] Hemoglobin (Bld) [Mass/Vol] 14.2 g/dL Normal 11.8-15.4 [facility] Comment on above: Performed By: #### B MP #### [address] INR in Platelet poor plasma by Coagulation assayOrdered By: Jaime Meeks on 01-15-2025 INR Coag (PPP) [Relative time] INR in Platelet poor plasma by Coagulation assay [facility] Comment on above: INR Therapeutic Rang e A) Pre- and Peroperative OAT started two weeks before surgery. NOT HIP SURGERY: 1.5 - 2.5 HIP SURGERY: 2 - 3B) Primary and secondary prevention of venous THROMBOSIS: 2 - 3C) Active venous thrombosis, pulmonary embolismand prevention of recurrent venous thrombosis: 2 - 3D) Prevention of arterial thromboembolismincluding patients with mechanical heart valves: 3 - 4.5 INR Coag (PPP) [Relative time] 1.0 {INR} Normal [facility] Comment on above: INR Therapeutic Rang e A) Pre- and Peroperative OAT started two weeks before surgery. NOT HIP SURGERY: 1.5 - 2.5 HIP SURGERY: 2 - 3B) Primary and secondary prevention of venous THROMBOSIS: 2 - 3C) Active venous thrombosis, pulmonary embolismand prevention of recurrent venous thrombosis: 2 - 3D) Prevention of arterial thromboembolismincluding patients with mechanical heart valves: 3 - 4.5 Result Comment: INR Therapeutic Range A) Pre- and Peroperative OAT started two weeks before surgery. NOT HIP SURGERY: 1.5 - 2.5 HIP SURGERY: 2 - 3 B) Primary and secondary prevention of venous THROMBOSIS: 2 - 3 C) Active venous thrombosis, pulmonary embolism and prevention of recurrent venous thrombosis: 2 - 3 D) Prevention of arterial thromboembolism including patients with mechanical heart valves: 3 - 4.5 Performed By: #### B MP #### [address] Leukocytes [#/volume] correc steff for nucleated erythrocytes in Blood by Automated counOrdered By: Jaime Meeks on 01-15-2025 WBC corrected for nucl RBC Auto (Bld) [#/Vol] Leukocytes [#/volume] corrected for nucleated erythrocytes in Blood by Automated coun 3.8-11.6 [facility] WBC corrected for nucl RBC Auto (Bld) [#/Vol] 10.8 10*3/uL 3.8-11.6 [facility] Leukocytes [#/volume] in Blo od by Automated countOrdered By: Jaime Meeks on 01-15-2025 WBC (Bld) [#/Vol] 10.8 10*3/uL Normal 3.8-11.6 [facility] Comment on above: Performed By: #### B MP #### [address] Lymphocytes Auto (Bld) [#/Vo l]Ordered By: Jaime Meeks on 01-15-2025 Lymphocytes (Bld) [#/Vol] Lymphocytes [#/volume] in Blood by Automated count 1.00-4.8 [facility] Lymphocytes [#/volume] in Bl ood by Automated countOrdered By: Jaime Meeks on 01-15-2025 Lymphocytes (Bld) [#/Vol] 2.1 10*3/uL Normal 1.00-4.8 [facility] Comment on above: Performed By: #### B MP #### [facility] [address] Lymphocytes/100 WBC Auto (Bl d)Ordered By: Jaime Meeks on 01-15-2025 Lymphocytes/100 WBC (Bld) Lymphocytes/100 leukocytes in Blood by Automated count . [facility] Lymphocytes/100 leukocytes i n Blood by Automated countOrdered By: Jaime Meeks on 01-15-2025 Lymphocytes/100 WBC (Bld) 19.7 % Normal . [facility] Comment on above: Performed By: #### B MP #### [facility] [address] MCH Auto (RBC) [Entitic mass ]Ordered By: Jaime Meeks on 01-15-2025 MCH (RBC) [Entitic mass] MCH [Entitic mass] by Automated count 24.7-34.3 [facility] MCH [Entitic mass] by Automa steff countOrdered By: Jaime Meeks on 01-15-2025 MCH (RBC) [Entitic mass] 25.3 pg Normal 24.7-34.3 [facility] Comment on above: Performed By: #### B MP #### [facility] [address] [place] [address] MCHC Auto (RBC) [Mass/Vol]Or dered By: Jaime Meeks on 01-15-2025 MCHC (RBC) [Mass/Vol] MCHC [Mass/volume] by Automated count 32.0-35.0 [facility] MCHC (RBC) [Mass/Vol] 32.9 g/dL 32.0-35.0 [facility] MCV Auto (RBC) [Entitic vol] Ordered By: Jaime Meeks on 01-15-2025 MCV (RBC) [Entitic vol] MCV [Entitic volume] by Automated count Low 80-100 [facility] MCV [Entitic volume] by Auto mated countOrdered By: Jaime Meeks on 01-15-2025 MCV (RBC) [Entitic vol] 76.7 fL Low 80-100 [facility] Comment on above: Performed By: #### B MP #### [address] Monocyte distribution width [Entitic volume] in Blood by AutomatedOrdered By: Jaime Meeks on 01-15-2025 Monocyte distribution width Auto (Bld) [Entitic vol] Monocyte distribution width [Entitic volume] in Blood by Automated 0.00-20.00 [facility] Monocyte distribution width Auto (Bld) [Entitic vol] 17.33 % 0.00-20.00 [facility] Monocytes Auto (Bld) [#/Vol] Ordered By: Jaime Meeks on 01-15-2025 Monocytes (Bld) [#/Vol] Automated blood monocyte count 0.0-0.8 [facility] Monocytes [#/volume] in Bloo d by Automated countOrdered By: Jaime Meeks on 01-15-2025 Monocytes (Bld) [#/Vol] 0.7 10*3/uL Normal 0.0-0.8 [facility] Comment on above: Performed By: #### B MP #### [address] Monocytes/100 WBC Auto (Bld) Ordered By: Jaime Meeks on 01-15-2025 Monocytes/100 WBC (Bld) Automated monocyte % . [facility] Monocytes/100 leukocytes in Blood by Automated countOrdered By: Jaime Meeks on 01-15-2025 Monocytes/100 WBC (Bld) 6.6 % Normal . [facility] Comment on above: Performed By: #### B MP #### [address] Natriuretic peptide B [Mass/ Vol]Ordered By: Jaime Meeks on 01-15-2025 Natriuretic peptide B (Bld) [Mass/Vol] BNP ser/plas 5-100 [facility] Neutrophils Auto (Bld) [#/Vo l]Ordered By: Jaime Meeks on 01-15-2025 Neutrophils (Bld) [#/Vol] Neutrophils [#/volume] in Blood by Automated count 1.8-7.7 [facility] Neutrophils [#/volume] in Bl ood by Automated countOrdered By: Jaime Meeks on 01-15-2025 Neutrophils (Bld) [#/Vol] 7.7 10*3/uL Normal 1.8-7.7 [facility] Comment on above: Performed By: #### B MP #### [address] Neutrophils/100 WBC Auto (Bl d)Ordered By: Jaime Meeks on 01-15-2025 Neutrophils/100 WBC (Bld) Automated neutrophil % . [facility] Neutrophils/100 leukocytes i n Blood by Automated countOrdered By: Jaime Meeks on 01-15-2025 Neutrophils/100 WBC (Bld) 71.4 % Normal . [facility] Comment on above: Performed By: #### B MP #### [address] No Panel InformationOrdered By: Jaime Meeks on 01-15-2025 Estimated GFR (CKD-EPI) > 60.0 mL/Min [facility] Creatinine Clearance (Chem 87.90 [facility] Nucleated erythrocytes [Pres ence] in Blood by Automated countOrdered By: Jaime Meeks on 01-15-2025 Nucleated RBC Auto Ql (Bld) Nucleated erythrocytes [Presence] in Blood by Automated count 0-0.5 [facility] Nucleated RBC Auto Ql (Bld) 0.0 /100{WBC} 0-0.5 [facility] Platelet mean volume Auto (B ld) [Entitic vol]Ordered By: Jaime Meeks on 01-15-2025 Platelet mean volume (Bld) [Entitic vol] Platelet mean volume [Entitic volume] in Blood by Automated count 6.3-10.7 [facility] Platelet mean volume [Entiti c volume] in Blood by Automated countOrdered By: Jaime Meeks on 01-15-2025 Platelet mean volume (Bld) [Entitic vol] 7.3 fL Normal 6.3-10.7 [facility] Comment on above: Performed By: #### B MP #### [address] Platelets Auto (Bld) [#/Vol] Ordered By: Jaime Meeks on 01-15-2025 Platelets (Bld) [#/Vol] Platelets [#/volume] in Blood by Automated count 150-450 [facility] Platelets [#/volume] in Bloo d by Automated countOrdered By: Jaime Meeks on 01-15-2025 Platelets (Bld) [#/Vol] 197 10*3/uL Normal 150-450 [facility] Comment on above: Performed By: #### B MP #### [facility] [address] Potassium [Moles/volume] in Serum or PlasmaOrdered By: Jaime Tylerarthy on 01-15-2025 Potassium [Moles/Vol] Potassium [Moles/v olume] in Serum or Plasma 3.5-5.1 [facility] Potassium [Moles/Vol] 3.5 mmol/L Normal 3.5-5.1 [facility] Comment on above: Performed By: #### B MP #### [facility] [address] Prothrombin time (PT)Ordered By: Jaime Sotoy on 01-15-2025 PT Coag (PPP) [Time] Prothrombin time (PT) 9.0- 12.9 [facility] Comment on above: A hematocrit value g reater than 55% may lead to inaccurate results in coagulation testing. Patients having hematocrit values >55% require a special collection tube for coagulation studies. Please contact the laboratory at [phone] for redraw instructions. PT Coag (PPP) [Time] 11.7 s Normal 9.0-12.9 [facility] Comment on above: A hematocrit value g reater than 55% may lead to inaccurate results in coagulation testing. Patients having hematocrit values >55% require a special collection tube for coagulation studies. Please contact the laboratory at [phone] for redraw instructions. Result Comment: A he matocrit value greater than 55% may lead to inaccurate results in coagulation testing. Patients having hematocrit values >55% require a special collection tube for coagulation studies. Please contact the laboratory at [phone] for redraw instructions. Performed By: #### B MP #### [address] RBC Auto (Bld) [#/Vol]Ordere d By: Jaime eMeks on 01-15-2025 RBC (Bld) [#/Vol] Erythrocytes [#/volu me] in Blood by Automated count High 3.60-5.00 [facility] Serum or plasma anion gap de terminationOrdered By: Jaime Meeks on 01-15-2025 Anion gap [Moles/Vol] Serum or plasma an ion gap determination 6.0-15.0 [facility] Anion gap [Moles/Vol] 11.9 mmol/L Normal 6.0-15.0 [facility] Comment on above: Performed By: #### B MP #### [address] Sodium [Moles/volume] in Ser um or PlasmaOrdered By: Jaime Meeks on 01-15-2025 Sodium [Moles/Vol] Sodium [Moles/volume ] in Serum or Plasma 136-145 [facility] Sodium [Moles/Vol] 142 mmol/L Normal 136-145 [facility] Comment on above: Performed By: #### B MP #### [address] Troponin I High Sensitivityo n 01-15-2025 Troponin I High Sensitivity 4 Normal 0-15 [facility] Comment on above: Result Comment: The Troponin units of report have been changed to meet the Chest Pain Accreditation requirement, element EC5.M1l2. Troponin units are changed from pg/ml to ng/L. Also, the decimal is removed and results are in whole numbers. PERFORMED BY: [place] [address] PATHOLOGIST POSITION CLASSIFIER BROWN LAUGHLIN M.D. Performed By: #### B MP #### [address] Troponin I.cardiac [Mass/vol ume] in Serum or Plasma by Detection limit <= 0.01 ng/Ordered By: Jaime Meeks on 01-15-2025 Troponin I.cardiac DL <= 0.01 ng/mL [Mass/Vol] Troponin I.cardiac [Mass/volume] in Serum or Plasma by Detection limit <= 0.01 ng/ 0 [facility] Comment on above: The Troponin units o f report have been changed to meet the Chest Pain Accreditation requirement, element EC5.M1l2. Troponin units are changed from pg/ml to ng/L. Also, the decimal is removed and results are in whole numbers. Troponin I.cardiac [Mass/vol ume] in Serum or Plasma by Detection limit <= 0.01 ng/mLOrdered By: Jaime Meeks on 01-15-2025 Troponin I.cardiac DL <= 0.01 ng/mL [Mass/Vol] 4 ng/L [facility] Comment on above: The Troponin units o f report have been changed to meet the Chest Pain Accreditation requirement, element EC5.M1l2. Troponin units are changed from pg/ml to ng/L. Also, the decimal is removed and results are in whole numbers. Urea nitrogen [Mass/volume] in Serum or PlasmaOrdered By: Jaime Meeks on 01-15-2025 Urea nitrogen [Mass/Vol] Urea nitrogen [Mass/volume] in Serum or Plasma 03-09 [facility] Urea nitrogen [Mass/Vol] 11 mg/dL Normal 03-09 [facility] Comment on above: Performed By: #### B MP #### [address] WBC Auto (Bld) [#/Vol]Ordere d By: Jaime Meeks on 01-15-2025 WBC (Bld) [#/Vol] Leukocytes [#/volume ] in Blood by Automated count 3.8-11.6 [facility] XR chest 1V portableon 01-15 XR chest 1V portable [facility] [place] [address] XRay Report Signed Patient: Flash Irving MR#: [id number] 6 : 1975 Acct:[id number] Age/Sex: 49 / F ADM Date: 01/15/25 Loc: ER Room: Type: [facility] ER Attending Dr: Copies to: Jaime Meeks DO Ordering Provider: Jaime Meeks DO Date of Service: 01/15/25 XR/XR chest 1V portable: Chest Pain SINGLE VIEW CHEST CLINICAL HISTORY: Shortness breath, chest pain COMPARISON: CT chest 10/04/2024 FINDINGS: Multifocal chronic interstitial thickening and fibrotic changes on the right lung with right-sided volume loss. Emphysematous changes left upper lobe lung with increased lucency. Coarsened interstitial opacities left lung base likely due to chronic fibrotic change. Negative acute airspace opacity effusion or pneumothorax. Borderline cardiomediastinal. XR/XR chest 1V portable IMPRESSION: CHRONIC FIBROTIC AND EMPHYSEMATOUS CHANGE. NO DEFINITE ACUTE PLEURAL-PARENCHYMAL DISEASE. Impression dictated by: Jose Warren M.D. 01/15/2025 10:42 AM Dictation Location: [place] [address] Transcribed By: AMBER 01/15/25 1042 Dictated By: Jose Warren MD 01/15/25 1040 Signed By: 01/15/25 1042 Normal [facility] Basophils Auto (Bld) [#/Vol] Ordered By: Ernst Boone on 01-01-2025 Basophils (Bld) [#/Vol] Automated basophil count 0.0-0.2 [facility] Basophils [#/volume] in Bloo d by Automated countOrdered By: Ernst Boone on 01-01-2025 Basophils (Bld) [#/Vol] 0.1 10*3/uL Normal 0.0-0.2 [facility] Comment on above: Order Comment: DEBRA CAMERON Result Comment: PERF ORMED BY: [place] [address] PATHOLOGIST POSITION CLASSIFIER NORAH LEVI M.D. Performed By: #### T SH3, LIPID #### [address] Basophils/100 WBC Auto (Bld) Ordered By: Ernst Boone on 01-01-2025 Basophils/100 WBC (Bld) Automated basophil % . [facility] Basophils/100 leukocytes in Blood by Automated countOrdered By: Ernst Boone on 01-01-2025 Basophils/100 WBC (Bld) 0.8 % Normal . [facility] Comment on above: Order Comment: [email or web address] [email or web address] Performed By: #### T SH3, LIPID #### [address] Complete Blood Count Auto Di ffon 01-01-2025 Mean Corpuscular HGB Conc 32.7 g/dL Normal 32.0-35.0 [facility] Comment on above: Order Comment: [email or web address] [email or web address] Performed By: #### T SH3, LIPID #### [address] NRBC% 0.1 /100{WBC} Normal 0-0.5 [facility] Comment on above: Order Comment: [email or web address] [email or web address] Performed By: #### T SH3, LIPID #### [address] Eosinophils Auto (Bld) [#/Vo l]Ordered By: Ernst Boone on 01-01-2025 Eosinophils (Bld) [#/Vol] Automated eosinophil count 0.0-0.45 [facility] Eosinophils [#/volume] in Bl ood by Automated countOrdered By: Ernst Boone on 01-01-2025 Eosinophils (Bld) [#/Vol] 0.2 10*3/uL Normal 0.0-0.45 [facility] Comment on above: Order Comment: [email or web address] [email or web address] Performed By: #### T SH3, LIPID #### [address] Eosinophils/100 WBC Auto (Bl d)Ordered By: Ernst Boone on 01-01-2025 Eosinophils/100 WBC (Bld) Automated eosinophil % . [facility] Eosinophils/100 leukocytes i n Blood by Automated countOrdered By: Ernst Boone on 01-01-2025 Eosinophils/100 WBC (Bld) 1.5 % Normal . [facility] Comment on above: Order Comment: FASTI [email or web address].JKW Performed By: #### T SH3, LIPID #### [facility] [address] [place] [address] Erythrocyte distribution wid th Auto (RBC) [Ratio]Ordered By: Ernst Boone on 01-01-2025 Erythrocyte distribution width (RBC) [Ratio] Erythrocyte distribution width [Ratio] by Automated count 11.9-15.3 [facility] Erythrocyte distribution wid th [Ratio] by Automated countOrdered By: Ernst Rhodess on 01-01-2025 Erythrocyte distribution width (RBC) [Ratio] 14.4 % Normal 11.9-15.3 [facility] Comment on above: Order Comment: DEBRA MELISSAW Performed By: #### T SH3, LIPID #### [facility] [address] [place] [address] Erythrocytes [#/volume] in B lood by Automated countOrdered By: Ernst Boone on 01-01-2025 RBC (Bld) [#/Vol] 5.67 10*6/uL High 3.60-5.00 [facility] Comment on above: Order Comment: DEBRA CAMERON Performed By: #### T SH3, LIPID #### [facility] [address] [place] [address] Hematocrit Auto (Bld) [Volum e fraction]Ordered By: Ernst Boone on 01-01-2025 Hematocrit (Bld) [Volume fraction] Hematocrit [Volume Fraction] of Blood by Automated count 34.0-46.4 [facility] Hematocrit [Volume Fraction] of Blood by Automated countOrdered By: Ernst Boone on 01-01-2025 Hematocrit (Bld) [Volume fraction] 44.6 % Normal 34.0-46.4 [facility] Comment on above: Order Comment: DEBRA CAMERON Performed By: #### T SH3, LIPID #### [facility] [address] [place] [address] Hemoglobin [Mass/volume] in BloodOrdered By: Ernst Boone on 01-01-2025 Hemoglobin (Bld) [Mass/Vol] Hemoglobin [Mass/volume] in Blood 11.8-15.4 [facility] Hemoglobin (Bld) [Mass/Vol] 14.6 g/dL Normal 11.8-15.4 [facility] Comment on above: Order Comment: FASTI [email or web address].JKW Performed By: #### T SH3, LIPID #### [facility] [address] [place] [address] [place] Leukocytes [#/volume] correc steff for nucleated erythrocytes in Blood by Automated counOrdered By: Ernst Boone on 01-01-2025 WBC corrected for nucl RBC Auto (Bld) [#/Vol] Leukocytes [#/volume] corrected for nucleated erythrocytes in Blood by Automated coun 3.8-11.6 [facility] WBC corrected for nucl RBC Auto (Bld) [#/Vol] 10.7 10*3/uL 3.8-11.6 [facility] Leukocytes [#/volume] in Blo od by Automated countOrdered By: Ernst Boone on 01-01-2025 WBC (Bld) [#/Vol] 10.7 10*3/uL Normal 3.8-11.6 [facility] Comment on above: Order Comment: DEBRA OLIVASJKW Performed By: #### T SH3, LIPID #### [facility] [address] Lymphocytes Auto (Bld) [#/Vo l]Ordered By: Ernst Boone on 01-01-2025 Lymphocytes (Bld) [#/Vol] Lymphocytes [#/volume] in Blood by Automated count 1.00-4.8 [facility] Lymphocytes [#/volume] in Bl ood by Automated countOrdered By: Ernst Boone on 01-01-2025 Lymphocytes (Bld) [#/Vol] 2.3 10*3/uL Normal 1.00-4.8 [facility] Comment on above: Order Comment: DEBRA MARTINEZ.JKW Performed By: #### T SH3, LIPID #### [facility] [address] [place] [address] [place] Lymphocytes/100 WBC Auto (Bl d)Ordered By: Ernst Boone on 01-01-2025 Lymphocytes/100 WBC (Bld) Lymphocytes/100 leukocytes in Blood by Automated count . [facility] Lymphocytes/100 leukocytes i n Blood by Automated countOrdered By: Ernst Boone on 01-01-2025 Lymphocytes/100 WBC (Bld) 21.7 % Normal . [facility] Comment on above: Order Comment: DEBRA MELISSAW Performed By: #### T SH3, LIPID #### [facility] [address] MCH Auto (RBC) [Entitic mass ]Ordered By: Ernst Boone on 01-01-2025 MCH (RBC) [Entitic mass] MCH [Entitic mass] by Automated count 24.7-34.3 [facility] MCH [Entitic mass] by Automa steff countOrdered By: Ernst Boone on 01-01-2025 MCH (RBC) [Entitic mass] 25.7 pg Normal 24.7-34.3 [facility] Comment on above: Order Comment: DEBRA MELISSAW Performed By: #### T SH3, LIPID #### [facility] [address] MCHC Auto (RBC) [Mass/Vol]Or dered By: Ernst Boone on 01-01-2025 MCHC (RBC) [Mass/Vol] MCHC [Mass/volume] by Automated count 32.0-35.0 [facility] MCHC (RBC) [Mass/Vol] 32.7 g/dL 32.0-35.0 [facility] MCV Auto (RBC) [Entitic vol] Ordered By: Ernst Boone on 01-01-2025 MCV (RBC) [Entitic vol] MCV [Entitic volume] by Automated count Low 80-100 [facility] MCV [Entitic volume] by Auto mated countOrdered By: Ernst Boone on 01-01-2025 MCV (RBC) [Entitic vol] 78.6 fL Low 80-100 [facility] Comment on above: Order Comment: DEBRA MELISSAW Performed By: #### T SH3, LIPID #### [facility] [address] Monocytes Auto (Bld) [#/Vol] Ordered By: Ernst Boone on 01-01-2025 Monocytes (Bld) [#/Vol] Automated blood monocyte count 0.0-0.8 [facility] Monocytes [#/volume] in Bloo d by Automated countOrdered By: Ernst Boone on 01-01-2025 Monocytes (Bld) [#/Vol] 0.7 10*3/uL Normal 0.0-0.8 [facility] Comment on above: Order Comment: DEBRA MELISSAW Performed By: #### T SH3, LIPID #### [address] Monocytes/100 WBC Auto (Bld) Ordered By: Ernst Boone on 01-01-2025 Monocytes/100 WBC (Bld) Automated monocyte % . [facility] Monocytes/100 leukocytes in Blood by Automated countOrdered By: Ernst Boone on 01-01-2025 Monocytes/100 WBC (Bld) 6.5 % Normal . [facility] Comment on above: Order Comment: DEBRA MELISSAW Performed By: #### T SH3, LIPID #### [address] NT-proBNPon 01-01-2025 Natriuretic peptide B (Bld) [Mass/Vol] 44 pg/mL Normal 0-249 [facility] Comment on above: Order Comment: DEBRA MELISSAW Result Comment: The following cut-points have been suggested for the use of proBNP for the diagnostic evaluation of heart failure (HF) in patients with acute dyspnea: Modality Age Optimal Cut (years) Point Diagnosis (rule in HF) <50 450 pg/mL 50 - 75 900 pg/mL >75 1800 pg/mL Exclusion (rule out HF) Age independent 300 pg/mL Performed at: - [facility] [id number] [employer] Operator: Maxime Moss PhD, Phone: [phone] PERFORMED BY: [place] [address] PATHOLOGIST POSITION CLASSIFIER NORAH LEVI M.D. Performed By: #### T SH3, LIPID #### [address] Natriuretic peptide.B prohor jose d N-Terminal [Mass/volume] in Serum or PlasmaOrdered By: Ernst Boone on 01-01-2025 Natriuretic peptide.B prohormone N-Terminal [Mass/Vol] Natriuretic peptide.B prohormone N-Terminal [Mass/volume] in Serum or Plasma 0-249 [facility] Comment on above: The following cut-po ints have been suggested for theuse of proBNP for the diagnostic evaluation of heartfailure (HF) in patients with acute dyspnea:Modality Age Optimal Cut (years) Point Diag nosis (rule in HF) <50 450 pg/mL 50 - 75 900 pg/mL >75 1800 pg/mLExclusion (rule out HF) Age independent 300 pg/mLPerformed at: [facility] [place], [place] [id number] Director: Maxime Moss PhD, Phone: [phone] Natriuretic peptide.B prohormone N-Terminal [Mass/Vol] 44 pg/mL 0-249 [facility] Comment on above: The following cut-po ints have been suggested for theuse of proBNP for the diagnostic evaluation of heartfailure (HF) in patients with acute dyspnea:Modality Age Optimal Cut (years) Point Diag nosis (rule in HF) <50 450 pg/mL 50 - 75 900 pg/mL >75 1800 pg/mLExclusion (rule out HF) Age independent 300 pg/mLPerformed at: [facility] [place], [place] [id number] Director: Maxime Moss PhD, Phone: [phone] Neutrophils Auto (Bld) [#/Vo l]Ordered By: Ernst Boone on 01-01-2025 Neutrophils (Bld) [#/Vol] Neutrophils [#/volume] in Blood by Automated count 1.8-7.7 [facility] Neutrophils [#/volume] in Bl ood by Automated countOrdered By: Ernst Boone on 01-01-2025 Neutrophils (Bld) [#/Vol] 7.5 10*3/uL Normal 1.8-7.7 [facility] Comment on above: Order Comment: DEBRA MELISSAW Performed By: #### T SH3, LIPID #### [facility] [address] Neutrophils/100 WBC Auto (Bl d)Ordered By: Ernst Boone on 01-01-2025 Neutrophils/100 WBC (Bld) Automated neutrophil % . [facility] Neutrophils/100 leukocytes i n Blood by Automated countOrdered By: Ernst Boone on 01-01-2025 Neutrophils/100 WBC (Bld) 69.5 % Normal . [facility] Comment on above: Order Comment: DEBRA MELISSAW Performed By: #### T SH3, LIPID #### [address] Nucleated erythrocytes [Pres ence] in Blood by Automated countOrdered By: Ernst Boone on 01-01-2025 Nucleated RBC Auto Ql (Bld) Nucleated erythrocytes [Presence] in Blood by Automated count 0-0.5 [facility] Nucleated RBC Auto Ql (Bld) 0.1 /100{WBC} 0-0.5 [facility] Platelet mean volume Auto (B ld) [Entitic vol]Ordered By: Ernst Boone on 01-01-2025 Platelet mean volume (Bld) [Entitic vol] Platelet mean volume [Entitic volume] in Blood by Automated count 6.3-10.7 [facility] Platelet mean volume [Entiti c volume] in Blood by Automated countOrdered By: Ernst Boone on 01-01-2025 Platelet mean volume (Bld) [Entitic vol] 7.5 fL Normal 6.3-10.7 [facility] Comment on above: Order Comment: DEBRA MELISSAW Performed By: #### T SH3, LIPID #### [facility] [address] Platelets Auto (Bld) [#/Vol] Ordered By: Ernst Boone on 01-01-2025 Platelets (Bld) [#/Vol] Platelets [#/volume] in Blood by Automated count 150-450 [facility] Platelets [#/volume] in Bloo d by Automated countOrdered By: Ernst Rhodess on 01-01-2025 Platelets (Bld) [#/Vol] 188 10*3/uL Normal 150-450 [facility] Comment on above: Order Comment: DEBRA MELISSAW Performed By: #### T SH3, LIPID #### [address] RBC Auto (Bld) [#/Vol]Ordere d By: Ernst Rhodeschelsey on 01-01-2025 RBC (Bld) [#/Vol] Erythrocytes [#/volu me] in Blood by Automated count High 3.60-5.00 [facility] WBC Auto (Bld) [#/Vol]Ordere d By: Ernst Boone on 01-01-2025 WBC (Bld) [#/Vol] Leukocytes [#/volume ] in Blood by Automated count 3.8-11.6 [facility] Basophils Auto (Bld) [#/Vol] Ordered By: Ernst Rhodeschelsey on 12-12-2024 Basophils (Bld) [#/Vol] Automated basophil count 0.0-0.2 [facility] Basophils [#/volume] in Bloo d by Automated countOrdered By: Ernst Rhodeschelsey on 12-12-2024 Basophils (Bld) [#/Vol] 0.1 10*3/uL Normal 0.0-0.2 [facility] Comment on above: Result Comment: PERF ORMED BY: [place] [address] PATHOLOGIST POSITION CLASSIFIER NORAH LEVI M.D. Performed By: #### T SH3, LIPID #### [place] [address] [place] Basophils/100 WBC Auto (Bld) Ordered By: Ernst Boone on 12-12-2024 Basophils/100 WBC (Bld) Automated basophil % . [facility] Basophils/100 leukocytes in Blood by Automated countOrdered By: Ernst Boone on 12-12-2024 Basophils/100 WBC (Bld) 0.7 % Normal . [facility] Comment on above: Performed By: #### T SH3, LIPID #### [address] Complete Blood Count Auto Di ffon 12-12-2024 Mean Corpuscular HGB Conc 32.8 g/dL Normal 32.0-35.0 [facility] Comment on above: Performed By: #### T SH3, LIPID #### [address] NRBC% 0.1 /100{WBC} Normal 0-0.5 [facility] Comment on above: Performed By: #### T SH3, LIPID #### [address] Eosinophils Auto (Bld) [#/Vo l]Ordered By: Ernst Boone on 12-12-2024 Eosinophils (Bld) [#/Vol] Automated eosinophil count 0.0-0.45 [facility] Eosinophils [#/volume] in Bl ood by Automated countOrdered By: Ernst Boone on 12-12-2024 Eosinophils (Bld) [#/Vol] 0.1 10*3/uL Normal 0.0-0.45 [facility] Comment on above: Performed By: #### T SH3, LIPID #### [address] Eosinophils/100 WBC Auto (Bl d)Ordered By: Ernst Boone on 12-12-2024 Eosinophils/100 WBC (Bld) Automated eosinophil % . [facility] Eosinophils/100 leukocytes i n Blood by Automated countOrdered By: Ernst Boone on 12-12-2024 Eosinophils/100 WBC (Bld) 1.5 % Normal . [facility] Comment on above: Performed By: #### T SH3, LIPID #### [address] Erythrocyte distribution wid th Auto (RBC) [Ratio]Ordered By: Ernst Rhodess on 12-12-2024 Erythrocyte distribution width (RBC) [Ratio] Erythrocyte distribution width [Ratio] by Automated count 11.9-15.3 [facility] Erythrocyte distribution wid th [Ratio] by Automated countOrdered By: Ernst Rhodess on 12-12-2024 Erythrocyte distribution width (RBC) [Ratio] 14.6 % Normal 11.9-15.3 [facility] Comment on above: Performed By: #### T SH3, LIPID #### [facility] [address] [place] [address] Erythrocytes [#/volume] in B lood by Automated countOrdered By: Ernst Rhodeschelsey on 12-12-2024 RBC (Bld) [#/Vol] 5.42 10*6/uL High 3.60-5.00 [facility] Comment on above: Performed By: #### T SH3, LIPID #### [address] Hematocrit Auto (Bld) [Volum e fraction]Ordered By: Ernst Rhodess on 12-12-2024 Hematocrit (Bld) [Volume fraction] Hematocrit [Volume Fraction] of Blood by Automated count 34.0-46.4 [facility] Hematocrit [Volume Fraction] of Blood by Automated countOrdered By: Ernst Rhodess on 12-12-2024 Hematocrit (Bld) [Volume fraction] 42.8 % Normal 34.0-46.4 [facility] Comment on above: Performed By: #### T SH3, LIPID #### [facility] [address] [place] [address] Hemoglobin [Mass/volume] in BloodOrdered By: Ernst Rhodess on 12-12-2024 Hemoglobin (Bld) [Mass/Vol] Hemoglobin [Mass/volume] in Blood 11.8-15.4 [facility] Hemoglobin (Bld) [Mass/Vol] 14.1 g/dL Normal 11.8-15.4 [facility] Comment on above: Performed By: #### T SH3, LIPID #### [facility] [address] [place] [address] Leukocytes [#/volume] correc steff for nucleated erythrocytes in Blood by Automated counOrdered By: Ernst Boone on 12-12-2024 WBC corrected for nucl RBC Auto (Bld) [#/Vol] Leukocytes [#/volume] corrected for nucleated erythrocytes in Blood by Automated coun 3.8-11.6 [facility] WBC corrected for nucl RBC Auto (Bld) [#/Vol] 9.9 10*3/uL 3.8-11.6 [facility] Leukocytes [#/volume] in Blo od by Automated countOrdered By: Ernst Boone on 12-12-2024 WBC (Bld) [#/Vol] 9.9 10*3/uL Normal 3.8-11.6 [facility] Comment on above: Performed By: #### T SH3, LIPID #### [facility] [address] [place] [address] Lymphocytes Auto (Bld) [#/Vo l]Ordered By: Ernst Boone on 12-12-2024 Lymphocytes (Bld) [#/Vol] Lymphocytes [#/volume] in Blood by Automated count 1.00-4.8 [facility] Lymphocytes [#/volume] in Bl ood by Automated countOrdered By: Ernst Boone on 12-12-2024 Lymphocytes (Bld) [#/Vol] 1.6 10*3/uL Normal 1.00-4.8 [facility] Comment on above: Performed By: #### T SH3, LIPID #### [facility] [address] [place] [address] Lymphocytes/100 WBC Auto (Bl d)Ordered By: Ernst Boone on 12-12-2024 Lymphocytes/100 WBC (Bld) Lymphocytes/100 leukocytes in Blood by Automated count . [facility] Lymphocytes/100 leukocytes i n Blood by Automated countOrdered By: Ernst Boone on 12-12-2024 Lymphocytes/100 WBC (Bld) 15.8 % Normal . [facility] Comment on above: Performed By: #### T SH3, LIPID #### [facility] [address] [place] [address] MCH Auto (RBC) [Entitic mass ]Ordered By: Ernst Boone on 12-12-2024 MCH (RBC) [Entitic mass] MCH [Entitic mass] by Automated count 24.7-34.3 [facility] MCH [Entitic mass] by Automa steff countOrdered By: Ernst Boone on 12-12-2024 MCH (RBC) [Entitic mass] 25.9 pg Normal 24.7-34.3 [facility] Comment on above: Performed By: #### T SH3, LIPID #### [facility] [address] [place] [address] MCHC Auto (RBC) [Mass/Vol]Or dered By: Ernst Boone on 12-12-2024 MCHC (RBC) [Mass/Vol] MCHC [Mass/volume] by Automated count 32.0-35.0 [facility] MCHC (RBC) [Mass/Vol] 32.8 g/dL 32.0-35.0 [facility] MCV Auto (RBC) [Entitic vol] Ordered By: Ernst Boone on 12-12-2024 MCV (RBC) [Entitic vol] MCV [Entitic volume] by Automated count Low 80-100 [facility] MCV [Entitic volume] by Auto mated countOrdered By: Ernst Boone on 12-12-2024 MCV (RBC) [Entitic vol] 79.0 fL Low 80-100 [facility] Comment on above: Performed By: #### T SH3, LIPID #### [address] Monocytes Auto (Bld) [#/Vol] Ordered By: Ernst Boone on 12-12-2024 Monocytes (Bld) [#/Vol] Automated blood monocyte count 0.0-0.8 [facility] Monocytes [#/volume] in Bloo d by Automated countOrdered By: Ernst Boone on 12-12-2024 Monocytes (Bld) [#/Vol] 0.6 10*3/uL Normal 0.0-0.8 [facility] Comment on above: Performed By: #### T SH3, LIPID #### [address] Monocytes/100 WBC Auto (Bld) Ordered By: Ernst Boone on 12-12-2024 Monocytes/100 WBC (Bld) Automated monocyte % . [facility] Monocytes/100 leukocytes in Blood by Automated countOrdered By: Ernst Boone on 12-12-2024 Monocytes/100 WBC (Bld) 6.5 % Normal . [facility] Comment on above: Performed By: #### T SH3, LIPID #### [address] NT-proBNPon 12-12-2024 Natriuretic peptide B (Bld) [Mass/Vol] 81 pg/mL Normal 0-249 [facility] Comment on above: Result Comment: The following cut-points have been suggested for the use of proBNP for the diagnostic evaluation of heart failure (HF) in patients with acute dyspnea: Modality Age Optimal Cut (years) Point Diagnosis (rule in HF) <50 450 pg/mL 50 - 75 900 pg/mL >75 1800 pg/mL Exclusion (rule out HF) Age independent 300 pg/mL Performed at: [facility] [id number] [employer] Operator: Maxime Moss PhD, Phone: [phone] PERFORMED BY: [place] [address] PATHOLOGIST POSITION CLASSIFIER NORAH LEVI M.D. Performed By: #### T SH3, LIPID #### [address] Natriuretic peptide.B prohor jose d N-Terminal [Mass/volume] in Serum or PlasmaOrdered By: Ernst Boone on 12-12-2024 Natriuretic peptide.B prohormone N-Terminal [Mass/Vol] Natriuretic peptide.B prohormone N-Terminal [Mass/volume] in Serum or Plasma 0-249 [facility] Comment on above: The following cut-po ints have been suggested for theuse of proBNP for the diagnostic evaluation of heartfailure (HF) in patients with acute dyspnea:Modality Age Optimal Cut (years) Point Diag nosis (rule in HF) <50 450 pg/mL 50 - 75 900 pg/mL >75 1800 pg/mLExclusion (rule out HF) Age independent 300 pg/mLPerformed at: [facility] [id number] Director: Maxime Moss PhD, Phone: [place] Natriuretic peptide.B prohormone N-Terminal [Mass/Vol] 81 pg/mL 0-249 [facility] Comment on above: The following cut-po ints have been suggested for theuse of proBNP for the diagnostic evaluation of heartfailure (HF) in patients with acute dyspnea:Modality Age Optimal Cut (years) Point Diag nosis (rule in HF) <50 450 pg/mL 50 - 75 900 pg/mL >75 1800 pg/mLExclusion (rule out HF) Age independent 300 pg/mLPerformed at: [facility] [id number] Director: Maxime Moss PhD, Phone: [phone] Neutrophils Auto (Bld) [#/Vo l]Ordered By: Ernst Boone on 12-12-2024 Neutrophils (Bld) [#/Vol] Neutrophils [#/volume] in Blood by Automated count 1.8-7.7 [facility] Neutrophils [#/volume] in Bl ood by Automated countOrdered By: Ernst Boone on 12-12-2024 Neutrophils (Bld) [#/Vol] 7.5 10*3/uL Normal 1.8-7.7 [facility] Comment on above: Performed By: #### T SH3, LIPID #### [address] Neutrophils/100 WBC Auto (Bl d)Ordered By: Enrst Boone on 12-12-2024 Neutrophils/100 WBC (Bld) Automated neutrophil % . [facility] Neutrophils/100 leukocytes i n Blood by Automated countOrdered By: Ernst Boone on 12-12-2024 Neutrophils/100 WBC (Bld) 75.5 % Normal . [facility] Comment on above: Performed By: #### T SH3, LIPID #### [facility] [address] [place] [address] [place] Nucleated erythrocytes [Pres ence] in Blood by Automated countOrdered By: Ernst Boone on 12-12-2024 Nucleated RBC Auto Ql (Bld) Nucleated erythrocytes [Presence] in Blood by Automated count 0-0.5 [facility] Nucleated RBC Auto Ql (Bld) 0.1 /100{WBC} 0-0.5 [facility] Platelet mean volume Auto (B ld) [Entitic vol]Ordered By: Ernst Boone on 12-12-2024 Platelet mean volume (Bld) [Entitic vol] Platelet mean volume [Entitic volume] in Blood by Automated count 6.3-10.7 [facility] Platelet mean volume [Entiti c volume] in Blood by Automated countOrdered By: Ernst Boone on 12-12-2024 Platelet mean volume (Bld) [Entitic vol] 7.8 fL Normal 6.3-10.7 [facility] Comment on above: Performed By: #### T SH3, LIPID #### [facility] [address] [place] [address] [place] Platelets Auto (Bld) [#/Vol] Ordered By: Ernst Boone on 12-12-2024 Platelets (Bld) [#/Vol] Platelets [#/volume] in Blood by Automated count 150-450 [facility] Platelets [#/volume] in Bloo d by Automated countOrdered By: Ernst Boone on 12-12-2024 Platelets (Bld) [#/Vol] 203 10*3/uL Normal 150-450 [facility] Comment on above: Performed By: #### T SH3, LIPID #### [facility] [address] [place] [address] [place] RBC Auto (Bld) [#/Vol]Ordere d By: Ernst Boone on 12-12-2024 RBC (Bld) [#/Vol] Erythrocytes [#/volu me] in Blood by Automated count High 3.60-5.00 [facility] WBC Auto (Bld) [#/Vol]Ordere d By: Ernst Boone on 12-12-2024 WBC (Bld) [#/Vol] Leukocytes [#/volume ] in Blood by Automated count 3.8-11.6 [facility] MM screening mammo BI w/CADo n 11-10-2024 MM screening mammo BI w/CAD [facility] [address] [place] [address] Mammography Report Signed Patient: Flash Irving MR#: [id number] : 1975 Acct:[id number] Age/Sex: 49 / F Adm Date: 11/10/24 Loc: [place] Room: Type: [facility] Attending Dr: Gennaro Londono DO Ordering Provider: Gennaro Londono DO Date of Service: 11/10/24 Procedure(s): MM screening mammo BI w/CAD Accession Number(s): ([id number]) MM/MM screening mammo BI w/CAD: Z12.31 Copies to: DO Gennaro Braun DO BILATERAL Screening Full Field digital mammogram with 3-D imaging. Full field digital CC and MLO imaging performed. CAD utilized. COMPARISON: 09/30/2023 HISTORY: Annual screening BREAST COMPOSITION: Scattered fibroglandular densities of the breast parenchyma identified BREAST CALCIFICATIONS: Benign calcifications present. VASCULAR CALCIFICATIONS: None ARCHITECTURAL DISTORTION: None BREAST NODULE: None AXILLARY LYMPH NODES: Normal POSTSURGICAL CHANGES: None MM/MM screening mammo BI w/CAD IMPRESSION: No mammographic evidence of malignancy. Routine follow-up recommended in one year. RESULT CODE: 2 Benign Findings(s) DENSITY CODE: 2 (approximately 25-50% glandular) There are scattered areas of fibroglandular density. FOLLOW UP: 1YR THE FALSE-NEGATIVE RATE OF MAMMOGRAPHY IS APPROXIMATELY 10%. IMAGING OF A PALPABLE ABNORMALITY MUST BE BASED ON CLINICAL GROUNDS. PATIENT WAS ENTERED INTO A REMINDER SYSTEM WITH A TARGET DUE DATE FOR THE NEXT MAMMOGRAM. Impression dictated by: Jabari Cuevas M.D.11/10/2024 4:26 PM Dictation Location: [id number] Dictated By: Jabari Cuevas DO 11/10/241624 Signed By: 11/10/241625 [place] [facility] Mammography reportOrdered By : Jabari Cuevas on 11-10-2024 Diagnostic imaging study [facility] [address] [place] [address] Mammography Report Signed Patient: Flash Irving MR#: [id number] : 1975 Acct:[id number] Age/Sex: 49 / F Adm Date: 5 Loc: [place] Room: Type: [facility] Attending Dr: Gennaro Londono DO Ordering Provider: Gennaro Londono DO Date of Service: 11/10/24 Procedure(s): MM screening mammo BI w/CAD Accession Number(s): ([id number]) MM/MM screening mammo BI w/CAD: Z12.31 Copies to: DO Gennaro Braun DO~ BILATERAL Screening Full Field digital mammogram with 3-D imaging. Full field digital CC and MLO imaging performed. CAD utilized. COMPARISON: 09/30/2023 HISTORY: Annual screening BREAST COMPOSITION: Scattered fibroglandular densities of the breast parenchyma identified BREAST CALCIFICATIONS: Benign calcifications present. VASCULAR CALCIFICATIONS: None ARCHITECTURAL DISTORTION: None BREAST NODULE: None AXILLARY LYMPH NODES: Normal POSTSURGICAL CHANGES: None MM/MM screening mammo BI w/CAD IMPRESSION: No mammographic evidence of malignancy. Routine follow-up recommended in one year. RESULT CODE: 2 Benign Findings(s) DENSITY CODE: 2 (approximately 25-50% glandular) There are scattered areas of fibroglandular density. FOLLOW UP: 1YR THE FALSE-NEGATIVE RATE OF MAMMOGRAPHY IS APPROXIMATELY 10%. IMAGING OF A PALPABLE ABNORMALITY MUST BE BASED ON CLINICAL GROUNDS. PATIENT WAS ENTERED INTO A REMINDER SYSTEM WITH A TARGET DUE DATE FOR THE NEXT MAMMOGRAM. Impression dictated by: Jabari Cuevas M.D.11/10/2024 4:26 PM Dictation Location: [id number] Dictated By: Jabari Cuevas DO 03/28/25 1625 Signed By: 11/10/24 1626 [facility] Basic Metabolic Panelon 10-15 Anion gap [Moles/Vol] 10.7 mmol/L Normal 6.0-15.0 [facility] Comment on above: Performed By: #### B MP #### [address] Calcium [Mass/Vol] 8.6 mg/dL Normal 8.6-10.3 [facility] Comment on above: Result Comment: PERF ORMED BY: [place] [address] PATHOLOGIST POSITION CLASSIFIER NORAH LEVI M.D. Performed By: #### B MP #### [address] Chloride [Moles/Vol] 106 mmol/L Normal 98-107 [facility] Comment on above: Performed By: #### B MP #### [address] CO2 [Moles/Vol] 29.3 mmol/L Normal 21.0-31.0 [facility] Comment on above: Performed By: #### B MP #### [address] Creatinine [Mass/Vol] 0.61 mg/dL Normal 0.60-1.20 [facility] Comment on above: Performed By: #### B MP #### [address] GFR/1.73 sq M.predicted MDRD (S/P/Bld) [Vol rate/Area] mL/min/{1.73_m2} Normal [facility] Comment on above: Performed By: #### B MP #### [address] Glucose [Mass/Vol] 82 mg/dL Normal 70-100 [facility] Comment on above: Result Comment: [facility][note 3] Glucose Reference Range is dependent on time and content of last meal. Glucose of more than 200 mg/dL in a nonstressed, ambulatory subject supports the diagnosis of Diabetes Mellitus. ADA recommended reference range Performed By: #### B MP #### [facility] [address] [place] [address] [place] Potassium [Moles/Vol] 4.0 mmol/L Normal 3.5-5.1 [facility] Comment on above: Performed By: #### B MP #### [facility] [address] Sodium [Moles/Vol] 142 mmol/L Normal 136-145 [facility] Comment on above: Performed By: #### B MP #### [facility] [address] Urea nitrogen [Mass/Vol] 8 mg/dL Normal 7-25 [facility] Comment on above: Performed By: #### B MP #### [facility] [address] Calcium [Mass/volume] in Ser um or PlasmaOrdered By: Ernst Boone on 11-09-2024 Calcium [Mass/Vol] Calcium [Mass/volume ] in Serum or Plasma 8.6-10.3 [facility] Carbon dioxide, total [Moles /volume] in Serum or PlasmaOrdered By: Ernst Boone on 11-09-2024 CO2 [Moles/Vol] Carbon dioxide, tota l [Moles/volume] in Serum or Plasma 21.0-31.0 [facility] Chloride [Moles/volume] in S luz maria or PlasmaOrdered By: Ernst Boone on 11-09-2024 Chloride [Moles/Vol] Chloride [Moles/vol ume] in Serum or Plasma 98-107 [facility] Creatinine [Mass/volume] in Serum or PlasmaOrdered By: Ernst Boone on 11-09-2024 Creatinine [Mass/Vol] Creatinine [Mass/v olume] in Serum or Plasma 0.60-1.20 [facility] Glucose [Mass/volume] in Ser um or PlasmaOrdered By: Ernst Boone on 11-09-2024 Glucose [Mass/Vol] Glucose [Mass/volume ] in Serum or Plasma 70-100 [facility] Comment on above: ADA recommended refe rence rangeRandom Glucose Reference Range is dependent on time and content of last meal. Glucose of more than 200 mg/dL in a nonstressed, ambulatory subject supports the diagnosis of Diabetes Mellitus. No Panel InformationOrdered By: Ernst Boone on 11-09-2024 Estimated GFR (CKD-EPI) > 60.0 mL/Min [facility] Creatinine Clearance (Chem N/A [facility] Potassium [Moles/volume] in Serum or PlasmaOrdered By: Ernst Boone on 11-09-2024 Potassium [Moles/Vol] Potassium [Moles/v olume] in Serum or Plasma 3.5-5.1 [facility] Serum or plasma anion gap de terminationOrdered By: Ernst Boone on 11-09-2024 Anion gap [Moles/Vol] Serum or plasma an ion gap determination 6.0-15.0 [facility] Sodium [Moles/volume] in Ser um or PlasmaOrdered By: Ernst Boone on 11-09-2024 Sodium [Moles/Vol] Sodium [Moles/volume ] in Serum or Plasma 136-145 [facility] Urea nitrogen [Mass/volume] in Serum or PlasmaOrdered By: Ernst Boone on 11-09-2024 Urea nitrogen [Mass/Vol] Urea nitrogen [Mass/volume] in Serum or Plasma 7-25 [facility] Basic Metabolic Panelon 09-17 Anion gap [Moles/Vol] 8.2 mmol/L Normal 6.0-15.0 [facility] Comment on above: Performed By: #### B MP #### [facility] [address] [place] [address] [place] Calcium [Mass/Vol] 8.7 mg/dL Normal 8.6-10.3 [facility] Comment on above: Performed By: #### B MP #### [facility] [address] [place] [id number] [place] Chloride [Moles/Vol] 105 mmol/L Normal 98-107 [facility] Comment on above: Performed By: #### B MP #### [facility] [address] [place] [id number] [place] CO2 [Moles/Vol] 28.7 mmol/L Normal 21.0-31.0 [facility] Comment on above: Performed By: #### B MP #### [address] Creatinine [Mass/Vol] 0.66 mg/dL Normal 0.60-1.20 [facility] Comment on above: Performed By: #### B MP #### [place] [address] [place] Creatinine Clr Calc Pharmacy 95.48 Normal [facility] Comment on above: Result Comment: PERF ORMED BY: [place] [address] PATHOLOGIST POSITION CLASSIFIER NORAH LEVI M.D. Performed By: #### B MP #### [place] [address] [place] GFR/1.73 sq M.predicted MDRD (S/P/Bld) [Vol rate/Area] mL/min/{1.73_m2} Normal [facility] Comment on above: Performed By: #### B MP #### [address] Glucose [Mass/Vol] 73 mg/dL Normal 70-100 [facility] Comment on above: Result Comment: [facility] Glucose Reference Range is dependent on time and content of last meal. Glucose of more than 200 mg/dL in a nonstressed, ambulatory subject supports the diagnosis of Diabetes Mellitus. ADA recommended reference range Performed By: #### B MP #### [place] [address] [place] Potassium [Moles/Vol] 3.9 mmol/L Normal 3.5-5.1 [facility] Comment on above: Performed By: #### B MP #### [place] [address] [place] Sodium [Moles/Vol] 138 mmol/L Normal 136-145 [facility] Comment on above: Performed By: #### B MP #### [place] [address] [place] Urea nitrogen [Mass/Vol] 10 mg/dL Normal 7-25 [facility] Comment on above: Performed By: #### B MP #### [facility] [address] Calcium [Mass/volume] in Ser um or PlasmaOrdered By: Paddy Wiggins on 10-06-2024 Calcium [Mass/Vol] Calcium [Mass/volume ] in Serum or Plasma 8.6-10.3 [facility] Carbon dioxide, total [Moles /volume] in Serum or PlasmaOrdered By: Paddy Wiggins on 10-06-2024 CO2 [Moles/Vol] Carbon dioxide, tota l [Moles/volume] in Serum or Plasma 21.0-31.0 [facility] Chloride [Moles/volume] in S luz maria or PlasmaOrdered By: Paddy Wiggins on 10-06-2024 Chloride [Moles/Vol] Chloride [Moles/vol ume] in Serum or Plasma 98-107 [facility] Creatinine [Mass/volume] in Serum or PlasmaOrdered By: Paddy Wiggins on 10-06-2024 Creatinine [Mass/Vol] Creatinine [Mass/v olume] in Serum or Plasma 0.60-1.20 [facility] Glucose [Mass/volume] in Ser um or PlasmaOrdered By: Paddy Wiggins on 10-06-2024 Glucose [Mass/Vol] Glucose [Mass/volume ] in Serum or Plasma 70-100 [facility] Comment on above: ADA recommended refe rence rangeRandom Glucose Reference Range is dependent on time and content of last meal. Glucose of more than 200 mg/dL in a nonstressed, ambulatory subject supports the diagnosis of Diabetes Mellitus. No Panel InformationOrdered By: Paddy Wiggins on 10-06-2024 Estimated GFR (CKD-EPI) > 60.0 mL/Min [facility] Creatinine Clearance (Chem 95.48 [facility] Potassium [Moles/volume] in Serum or PlasmaOrdered By: Paddy Wiggins on 10-06-2024 Potassium [Moles/Vol] Potassium [Moles/v olume] in Serum or Plasma 3.5-5.1 [facility] Serum or plasma anion gap de terminationOrdered By: Paddy Wiggins on 10-06-2024 Anion gap [Moles/Vol] Serum or plasma an ion gap determination 6.0-15.0 [facility] Sodium [Moles/volume] in Ser um or PlasmaOrdered By: Paddy Wiggins on 10-06-2024 Sodium [Moles/Vol] Sodium [Moles/volume ] in Serum or Plasma 136-145 [facility] Urea nitrogen [Mass/volume] in Serum or PlasmaOrdered By: Paddy Wiggins on 10-06-2024 Urea nitrogen [Mass/Vol] Urea nitrogen [Mass/volume] in Serum or Plasma 7-25 [facility] Basic Metabolic Panelon 09-17 Anion gap [Moles/Vol] 2.8 mmol/L Low 6.0-15.0 [facility] Comment on above: Performed By: #### B MP #### [address] Calcium [Mass/Vol] 8.6 mg/dL Normal 8.6-10.3 [facility] Comment on above: Performed By: #### B MP #### [address] Chloride [Moles/Vol] 113 mmol/L High 98-107 [facility] Comment on above: Performed By: #### B MP #### [address] CO2 [Moles/Vol] 27.7 mmol/L Normal 21.0-31.0 [facility] Comment on above: Performed By: #### B MP #### [address] Creatinine [Mass/Vol] 0.60 mg/dL Normal 0.60-1.20 [facility] Comment on above: Performed By: #### B MP #### [place] [address] [place] Creatinine Clr Calc Pharmacy 105.03 Normal [facility] Comment on above: Result Comment: PERF ORMED BY: [place] [address] PATHOLOGIST POSITION CLASSIFIER NORAH LEVI M.D. Performed By: #### B MP #### [facility] [address] [place] [address] [place] GFR/1.73 sq M.predicted MDRD (S/P/Bld) [Vol rate/Area] mL/min/{1.73_m2} Normal [facility] Comment on above: Performed By: #### B MP #### [place] [address] [place] Glucose [Mass/Vol] 77 mg/dL Normal 70-100 [facility] Comment on above: Result Comment: [facility][note 3] Glucose Reference Range is dependent on time and content of last meal. Glucose of more than 200 mg/dL in a nonstressed, ambulatory subject supports the diagnosis of Diabetes Mellitus. ADA recommended reference range Performed By: #### B MP #### [address] Potassium [Moles/Vol] 4.5 mmol/L Significan t change down 3.5-5.1 [facility] Comment on above: Performed By: #### B MP #### [place] [address] [place] Sodium [Moles/Vol] 139 mmol/L Normal 136-145 [facility] Comment on above: Performed By: #### B MP #### [place] [address] [place] Urea nitrogen [Mass/Vol] 8 mg/dL Normal 7-25 [facility] Comment on above: Performed By: #### B MP #### [place] [address] [place] C reactive protein [Mass/vol ume] in Serum or PlasmaOrdered By: Paddy Wiggins on 10-05-2024 CRP [Mass/Vol] C reactive protein [Mass/volume] in Serum or Plasma 0.0-0.5 [facility] C-Reactive Proteinon 025 CRP [Mass/Vol] mg/L Normal 0.0-0.5 [facility] Comment on above: Result Comment: PERF ORMED BY: [address] [address] PATHOLOGIST POSITION CLASSIFIER NORAH LEVI M.D. Performed By: #### B MP #### [address] Alanine aminotransferase [En zymatic activity/volume] in Serum or PlasmaOrdered By: Mat Perez on 10-04-2024 ALT [Catalytic activity/Vol] Alanine aminotransferase [Enzymatic activity/volume] in Serum or Plasma 7-52 [facility] Albumin [Mass/volume] in Ser um or Plasma by Bromocresol green (BCG) dye binding methoOrdered By: Mat Perez on 10-04-2024 Albumin BCG dye [Mass/Vol] Albumin [Mass/volume] in Serum or Plasma by Bromocresol green (BCG) dye binding metho 3.5-5.7 [facility] Alkaline phosphatase [Enzyma tic activity/volume] in Serum or PlasmaOrdered By: Mat Perez on 10-04-2024 ALP [Catalytic activity/Vol] Alkaline phosphatase [Enzymatic activity/volume] in Serum or Plasma 34-104 [facility] Aspartate aminotransferase [ Enzymatic activity/volume] in Serum or PlasmaOrdered By: Mat Perez on 10-04-2024 AST [Catalytic activity/Vol] Aspartate aminotransferase [Enzymatic activity/volume] in Serum or Plasma Low 13-39 [facility] B-Type Natriuretic Peptideon 10-04-2024 Natriuretic peptide B (Bld) [Mass/Vol] 24.0 pg/mL Normal 5-100 [facility] Comment on above: Result Comment: PERF ORMED BY: [place] [address] PATHOLOGIST POSITION CLASSIFIER NORAH LEVI M.D. Performed By: #### B MP #### [facility] [address] [place] [address] Basophils Auto (Bld) [#/Vol] Ordered By: Mat Perez on 10-04-2024 Basophils (Bld) [#/Vol] Automated basophil count 0.0-0.2 [facility] Basophils/100 WBC Auto (Bld) Ordered By: Mat Perez on 10-04-2024 Basophils/100 WBC (Bld) Automated basophil % . [facility] Bilirubin.total [Mass/volume ] in Serum or PlasmaOrdered By: Mat Perez on 10-04-2024 Bilirubin [Mass/Vol] Bilirubin.total [Mass/volume] in Serum or Plasma 0.3-1.0 [facility] BioFire Not Detectedon 10-04 BioFire Not Detected Not detected Normal Not Detecte [facility] Comment on above: Result Comment: This is a duplicate RP2.1 COVID (PCR) result to be used for statistical tracking purpose only. PERFORMED BY: [place] [address] PATHOLOGIST POSITION CLASSIFIER NORAH LEVI M.D. Performed By: #### C DT #### [address] COVID-19 Detected/Not Detect edOrdered By: Paddy Wiggins on 10-04-2024 SARS-CoV-2 (COVID-19) RNA JONI+non-probe Ql (Nph) Not detected Not Detecte [facility] Comment on above: This is a duplicate RP2.1 COVID (PCR) result to be used for statistical tracking purpose only. CT chest wo conon 10-04-2024 CT chest wo con [facility] [place] [address] CT Scan Report Signed Patient: Flash Irving MR#: [id number] 6 : 1975 Acct:[id number] Age/Sex: 49 / F ADM Date: 10/04/24 Loc: ER Room: Type: [facility] ER Attending Dr: Copies to: Mat Perez MD Ordering Provider: Mat Perez MD Date of Service: 10/04/24 CT/CT chest wo con: Rule out left pneumo CT Chest without contrast TECHNIQUE: Axial imaging with 2-D reconstruction. The CT exam was performed using one or more the following dose reduction techniques: Automated exposure control, adjustment of the MA and/or Kv according to patient size, or use of the iterative reconstruction technique. History: Assessment for left pneumothorax COMPARISON: 05/06/2024 THYROID: Unremarkable TRACHEA AND BRONCHI: Patent ESOPHAGUS: Unremarkable. HEART: Within normal limits PERICARDIAL EFFUSION: None CORONARY ARTERY CALCIFICATION: None MEDIASTINUM: No adenopathy. No pneumoperitoneum. No mediastinal hematoma. PULMONARY DUANE: No hilar mass or adenopathy is seen. THORACIC AORTA Unremarkable LUNG NODULE None LUNGS: Peripheral right lung and left basilar fibrosis/honeycombing. Similar groundglass bilateral parenchymal densities. Marked left apical emphysematous changes. PLEURAL EFFUSION: None PNEUMOTHORAX: No pneumothorax seen. CHEST WALL: No abnormality AXILLA:Unremarkable BONY STRUCTURES Intact UPPER ABDOMEN: Images of the upper abdomen are noncontributory. CT/CT chest wo con IMPRESSION: The diffuse right and left basilar fibrosis with honeycombing. Similar groundglass interstitial changes. Marked left apical emphysematous changes. No pneumothorax. Impression dictated by: Jabari Cuevas M.D.10/04/2024 2:03 PM Dictation Location: [place] [address] Transcribed By: [facility] 10/04/24 1403 Dictated By: Jabari Cuevas DO 10/04/24 1400 Signed By: 10/04/24 1403 Normal [facility] Calcium [Mass/volume] in Ser um or PlasmaOrdered By: Mat Perez on 10-04-2024 Calcium [Mass/Vol] Calcium [Mass/volume ] in Serum or Plasma Low 8.6-10.3 [facility] Carbon dioxide, total [Moles /volume] in Serum or PlasmaOrdered By: Mat Perez on 10-04-2024 CO2 [Moles/Vol] Carbon dioxide, tota l [Moles/volume] in Serum or Plasma 21.0-31.0 [facility] Chloride [Moles/volume] in S luz maria or PlasmaOrdered By: Mat Perez on 10-04-2024 Chloride [Moles/Vol] Chloride [Moles/vol ume] in Serum or Plasma 98-107 [facility] Complete Blood Count Auto Di ffon 10-04-2024 Basophils (Bld) [#/Vol] 0.0 10*3/uL Normal 0.0-0.2 [facility] Comment on above: Result Comment: PERF ORMED BY: [facility] [address] [place] [address] PATHOLOGIST POSITION CLASSIFIER NORAH LEVI M.D. Performed By: #### C MP, BNP, CK, HS TROP, CBC #### [address] Basophils/100 WBC (Bld) 0.4 % Normal . [facility] Comment on above: Performed By: #### C MP, BNP, CK, HS TROP, CBC #### [address] Eosinophils (Bld) [#/Vol] 0.1 10*3/uL Normal 0.0-0.45 [facility] Comment on above: Performed By: #### C MP, BNP, CK, HS TROP, CBC #### [address] Eosinophils/100 WBC (Bld) 0.7 % Normal . [facility] Comment on above: Performed By: #### C MP, BNP, CK, HS TROP, CBC #### [address] Erythrocyte distribution width (RBC) [Ratio] 16.3 % High 11.9-15.3 [facility] Comment on above: Performed By: #### C MP, BNP, CK, HS TROP, CBC #### [address] Hematocrit (Bld) [Volume fraction] 41.0 % Normal 34.0-46.4 [facility] Comment on above: Performed By: #### C MP, BNP, CK, HS TROP, CBC #### [address] Hemoglobin (Bld) [Mass/Vol] 13.4 g/dL Normal 11.8-15.4 [facility] Comment on above: Performed By: #### C MP, BNP, CK, HS TROP, CBC #### [address] Lymphocytes (Bld) [#/Vol] 1.2 10*3/uL Normal 1.00-4.8 [facility] Comment on above: Performed By: #### C MP, BNP, CK, HS TROP, CBC #### [address] Lymphocytes/100 WBC (Bld) 11.9 % Normal . [facility] Comment on above: Performed By: #### C MP, BNP, CK, HS TROP, CBC #### [address] MCH (RBC) [Entitic mass] 25.4 pg Normal 24.7-34.3 [facility] Comment on above: Performed By: #### C MP, BNP, CK, HS TROP, CBC #### [address] MCV (RBC) [Entitic vol] 77.4 fL Low 80-100 [facility] Comment on above: Performed By: #### C MP, BNP, CK, HS TROP, CBC #### [address] Mean Corpuscular HGB Conc 32.7 g/dL Normal 32.0-35.0 [facility] Comment on above: Performed By: #### C MP, BNP, CK, HS TROP, CBC #### [address] Monocytes (Bld) [#/Vol] 0.7 10*3/uL Normal 0.0-0.8 [facility] Comment on above: Performed By: #### C MP, BNP, CK, HS TROP, CBC #### [place] [address] [place] Monocytes/100 WBC (Bld) 15.95 % Normal 0.00-20.00 [facility] Comment on above: Performed By: #### C MP, BNP, CK, HS TROP, CBC #### [address] Monocytes/100 WBC (Bld) 6.8 % Normal . [facility] Comment on above: Performed By: #### C MP, BNP, CK, HS TROP, CBC #### [place] [address] [place] Neutrophils (Bld) [#/Vol] 8.2 10*3/uL High 1.8-7.7 [facility] Comment on above: Performed By: #### C MP, BNP, CK, HS TROP, CBC #### [address] Neutrophils/100 WBC (Bld) 80.2 % Normal . [facility] Comment on above: Performed By: #### C MP, BNP, CK, HS TROP, CBC #### [address] NRBC% 0.1 /100{WBC} Normal 0-0.5 [facility] Comment on above: Performed By: #### C MP, BNP, CK, HS TROP, CBC #### [address] Platelet mean volume (Bld) [Entitic vol] 7.4 fL Normal 6.3-10.7 [facility] Comment on above: Performed By: #### C MP, BNP, CK, HS TROP, CBC #### [address] Platelets (Bld) [#/Vol] 155 10*3/uL Normal 150-450 [facility] Comment on above: Performed By: #### C MP, BNP, CK, HS TROP, CBC #### [address] RBC (Bld) [#/Vol] 5.29 10*6/uL High 3.60-5.00 [facility] Comment on above: Performed By: #### C MP, BNP, CK, HS TROP, CBC #### [address] WBC (Bld) [#/Vol] 10.3 10*3/uL Normal 3.8-11.6 [facility] Comment on above: Performed By: #### C MP, BNP, CK, HS TROP, CBC #### [address] Comprehensive Metabolic Pane ceferino 10-04-2024 Albumin [Mass/Vol] 4.1 g/dL Normal 3.5-5.7 [facility] Comment on above: Performed By: #### B MP #### [address] Albumin/Globulin [Mass ratio] 1.7 {ratio} Normal [facility] Comment on above: Performed By: #### B MP #### [address] ALP [Catalytic activity/Vol] 35 U/L Normal 34-104 [facility] Comment on above: Performed By: #### B MP #### [address] ALT [Catalytic activity/Vol] 8 U/L Normal 7-52 [facility] Comment on above: Performed By: #### B MP #### [address] Anion gap [Moles/Vol] 11.7 mmol/L Normal 6.0-15.0 [facility] Comment on above: Performed By: #### B MP #### [address] AST [Catalytic activity/Vol] 10 U/L Low 13-39 [facility] Comment on above: Performed By: #### B MP #### [address] Bilirubin [Mass/Vol] 0.6 mg/dL Normal 0.3-1.0 [facility] Comment on above: Performed By: #### B MP #### [address] Calcium [Mass/Vol] 8.4 mg/dL Low 8.6-10.3 [facility] Comment on above: Performed By: #### B MP #### [address] Chloride [Moles/Vol] 105 mmol/L Normal 98-107 [facility] Comment on above: Performed By: #### B MP #### [place] [address] [place] CO2 [Moles/Vol] 27.8 mmol/L Normal 21.0-31.0 [facility] Comment on above: Performed By: #### B MP #### [address] Creatinine [Mass/Vol] 0.66 mg/dL Normal 0.60-1.20 [facility] Comment on above: Performed By: #### B MP #### [address] Creatinine Clr Calc Pharmacy 95.81 Normal [facility] Comment on above: Result Comment: PERF ORMED BY: [place] [address] PATHOLOGIST POSITION CLASSIFIER NORAH LEVI M.D. Performed By: #### B MP #### [address] GFR/1.73 sq M.predicted MDRD (S/P/Bld) [Vol rate/Area] mL/min/{1.73_m2} Normal [facility] Comment on above: Performed By: #### B MP #### [address] Globulin (S) [Mass/Vol] 2.4 g/dL Normal [facility] Comment on above: Performed By: #### B MP #### [address] Glucose [Mass/Vol] 100 mg/dL Normal 70-100 [facility] Comment on above: Result Comment: [facility] Glucose Reference Range is dependent on time and content of last meal. Glucose of more than 200 mg/dL in a nonstressed, ambulatory subject supports the diagnosis of Diabetes Mellitus. ADA recommended reference range Performed By: #### B MP #### [address] Potassium [Moles/Vol] 2.5 mmol/L Off scale low 3.5-5.1 [facility] Comment on above: Result Comment: Crit ical Result Called to and read back by: MARLENI GUTIÉRREZ at: 10/04/2024 13:56:39 by:[id number] Performed By: #### B MP #### [address] Protein [Mass/Vol] 6.5 g/dL Normal 6.4-8.9 [facility] Comment on above: Performed By: #### B MP #### [address] Sodium [Moles/Vol] 142 mmol/L Normal 136-145 [facility] Comment on above: Performed By: #### B MP #### [address] Urea nitrogen [Mass/Vol] 11 mg/dL Normal 7-25 [facility] Comment on above: Performed By: #### B MP #### [place] [id number] [facility] Creatine Kinaseon 10-04-2024 CK [Catalytic activity/Vol] 19 U/L Low 30-223 [facility] Comment on above: Performed By: #### B MP #### [address] Creatine kinase [Enzymatic a ctivity/volume] in Serum or PlasmaOrdered By: Mat Perez on 10-04-2024 CK [Catalytic activity/Vol] Creatine kinase [Enzymatic activity/volume] in Serum or Plasma Low 30-223 [facility] Creatinine [Mass/volume] in Serum or PlasmaOrdered By: Mat Perez on 10-04-2024 Creatinine [Mass/Vol] Creatinine [Mass/v olume] in Serum or Plasma 0.60-1.20 [facility] ECG 12 lead ECGon 10-04-2024 ECG 12 lead ECG [facility] [place] [address] [place] [address] Electrocardiograph Report Signed Patient: Flash Irving MR#: [id number] 6 : 1975 Acct:[id number] Age/Sex: 49 / F ADM Date: 10/04/24 Loc: Room: [address] [place] [address] Type: ADM INOo Attending Dr: Paddy Wiggins MD Ordering Provider: Mat Perez MD Date of Service: 10/04/24 ECG/ECG 12 lead ECG: Shortness of Breath/Dyspnea Copies to: Test Reason : Blood Pressure : 132/77 mmHG Vent. Rate : 114 BPM Atrial Rate : 114 BPM P-R Int : 170 ms QRS Dur : 64 ms QT Int : 328 ms P-R-T Axes : 54 143 44 degrees QTcB Int : 452 ms Sinus tachycardia with premature atrial complexes Biatrial enlargement Septal infarct , age undetermined Lateral infarct , age undetermined Abnormal ECG When compared with ECG of 06-May-2024 22:09, premature atrial complexes are now present Confirmed by MAT PEREZ MD ([id number]) on 10/04/2024 7:25:40 PM Referred By: Electronically Signed By: MAT PEREZ MD Transcribed By: MUS Signed By Mat Perez MD 10/04/241924 Normal [facility] Eosinophils Auto (Bld) [#/Vo l]Ordered By: Mat Perez on 10-04-2024 Eosinophils (Bld) [#/Vol] Automated eosinophil count 0.0-0.45 [facility] Eosinophils/100 WBC Auto (Bl d)Ordered By: Mat Perez on 10-04-2024 Eosinophils/100 WBC (Bld) Automated eosinophil % . [facility] Erythrocyte distribution wid th Auto (RBC) [Ratio]Ordered By: Mat Perez on 10-04-2024 Erythrocyte distribution width (RBC) [Ratio] Erythrocyte distribution width [Ratio] by Automated count High 11.9-15.3 [facility] Globulin Calc (S) [Mass/Vol] Ordered By: Mat Perez on 10-04-2024 Globulin (S) [Mass/Vol] Serum globulin measurement by calculation (mass/volume) [facility] Glucose [Mass/volume] in Ser um or PlasmaOrdered By: Mat Perez on 10-04-2024 Glucose [Mass/Vol] Glucose [Mass/volume ] in Serum or Plasma 70-100 [facility] Comment on above: ADA recommended refe rence rangeRandom Glucose Reference Range is dependent on time and content of last meal. Glucose of more than 200 mg/dL in a nonstressed, ambulatory subject supports the diagnosis of Diabetes Mellitus. Hematocrit Auto (Bld) [Volum e fraction]Ordered By: Mat Perez on 10-04-2024 Hematocrit (Bld) [Volume fraction] Hematocrit [Volume Fraction] of Blood by Automated count 34.0-46.4 [facility] Hemoglobin [Mass/volume] in BloodOrdered By: Mat Perez on 10-04-2024 Hemoglobin (Bld) [Mass/Vol] Hemoglobin [Mass/volume] in Blood 11.8-15.4 [facility] Leukocytes [#/volume] correc steff for nucleated erythrocytes in Blood by Automated counOrdered By: Mat Perez on 10-04-2024 WBC corrected for nucl RBC Auto (Bld) [#/Vol] Leukocytes [#/volume] corrected for nucleated erythrocytes in Blood by Automated coun 3.8-11.6 [facility] Lymphocytes Auto (Bld) [#/Vo l]Ordered By: Mat Perez on 10-04-2024 Lymphocytes (Bld) [#/Vol] Lymphocytes [#/volume] in Blood by Automated count 1.00-4.8 [facility] Lymphocytes/100 WBC Auto (Bl d)Ordered By: Mat Perez on 10-04-2024 Lymphocytes/100 WBC (Bld) Lymphocytes/100 leukocytes in Blood by Automated count . [facility] MCH Auto (RBC) [Entitic mass ]Ordered By: Mat Perez on 10-04-2024 MCH (RBC) [Entitic mass] MCH [Entitic mass] by Automated count 24.7-34.3 [facility] MCHC Auto (RBC) [Mass/Vol]Or dered By: Mat Perez on 10-04-2024 MCHC (RBC) [Mass/Vol] MCHC [Mass/volume] by Automated count 32.0-35.0 [facility] MCV Auto (RBC) [Entitic vol] Ordered By: Mat Perez on 10-04-2024 MCV (RBC) [Entitic vol] MCV [Entitic volume] by Automated count Low 80-100 [facility] Monocyte distribution width [Entitic volume] in Blood by AutomatedOrdered By: Mat Perez on 10-04-2024 Monocyte distribution width Auto (Bld) [Entitic vol] Monocyte distribution width [Entitic volume] in Blood by Automated 0.00-20.00 [facility] Monocytes Auto (Bld) [#/Vol] Ordered By: Mat Perez on 10-04-2024 Monocytes (Bld) [#/Vol] Automated blood monocyte count 0.0-0.8 [facility] Monocytes/100 WBC Auto (Bld) Ordered By: Mat Perez on 10-04-2024 Monocytes/100 WBC (Bld) Automated monocyte % . [facility] Natriuretic peptide B [Mass/ Vol]Ordered By: Mat Perez on 10-04-2024 Natriuretic peptide B (Bld) [Mass/Vol] BNP ser/plas 5-100 [facility] Neutrophils Auto (Bld) [#/Vo l]Ordered By: Mat Perez on 10-04-2024 Neutrophils (Bld) [#/Vol] Neutrophils [#/volume] in Blood by Automated count High 1.8-7.7 [facility] Neutrophils/100 WBC Auto (Bl d)Ordered By: Mat Perez on 10-04-2024 Neutrophils/100 WBC (Bld) Automated neutrophil % . [facility] No Panel InformationOrdered By: Mat Perez on 10-04-2024 Estimated GFR (CKD-EPI) > 60.0 mL/Min [facility] Creatinine Clearance (Chem 95.81 [facility] Nucleated erythrocytes [Pres ence] in Blood by Automated countOrdered By: Mat Perez on 10-04-2024 Nucleated RBC Auto Ql (Bld) Nucleated erythrocytes [Presence] in Blood by Automated count 0-0.5 [facility] Platelet mean volume Auto (B ld) [Entitic vol]Ordered By: Mat Perez on 10-04-2024 Platelet mean volume (Bld) [Entitic vol] Platelet mean volume [Entitic volume] in Blood by Automated count 6.3-10.7 [facility] Platelets Auto (Bld) [#/Vol] Ordered By: Mat Perez on 10-04-2024 Platelets (Bld) [#/Vol] Platelets [#/volume] in Blood by Automated count 150-450 [facility] Potassium [Moles/volume] in Serum or PlasmaOrdered By: Mat Perez on 10-04-2024 Potassium [Moles/Vol] Potassium [Moles/v olume] in Serum or Plasma Critically low 3.5-5.1 [facility] Comment on above: Critical Result Call ed to and read back by: MARLENI GUTIÉRREZ at: 10/04/2024 13:56:39 by:[id number] Protein [Mass/volume] in Ser um or PlasmaOrdered By: Mat Perez on 10-04-2024 Protein [Mass/Vol] Protein [Mass/volume ] in Serum or Plasma 6.4-8.9 [facility] RBC Auto (Bld) [#/Vol]Ordere d By: Mat Perez on 10-04-2024 RBC (Bld) [#/Vol] Erythrocytes [#/volu me] in Blood by Automated count High 3.60-5.00 [facility] Respiratory (Upper) Panel, P CRon 10-04-2024 Respiratory (Upper) Panel, PCR Adenovirus Not detected Bordetella parapertussis Not detected Chlamydia pneumoniae Not detected Coronavirus 229E Not detected Coronavirus HKU1 Not detected Coronavirus NL63 Not detected Coronavirus OC43 Not detected Influenza A Not detected Influenza B Not detected Human Metapneumovirus Not detected Mycoplasma pneumoniae Not detected Parainfluenza Virus 1 Not detected Parainfluenza Virus 2 Not detected Parainfluenza Virus 3 Not detected Parainfluenza Virus 4 Not detected Bordetella pertussis-ptxP Not detected Human Rhino/Enterovirus Not detected Resp. Syncytial Virus Not detected COVID-19 Detected/Not Detected Not detected Blank Space FLUA TEST INCLUDES Influenza A tests for the following clinically FLUA TEST INCLUDES significant subtypes: FLUA TEST INCLUDES - Influenza A FLUA TEST INCLUDES - Influenza A H1 FLUA TEST INCLUDES - Influenza A H1 2009 FLUA TEST INCLUDES - Influenza A H3 Blank Space PERFORMED BY: [facility] [place] [address] PATHOLOGIST POSITION CLASSIFIER NORAH LEVI M.D. Normal [facility] Comment on above: Performed By: #### C DT #### [address] Respiratory pathogens DNA an d RNA panel - Nasopharynx by JONI with non-probe detectionOrdered By: Paddy Wiggins on 10-04-2024 Respiratory pathogens DNA and RNA panel JONI+non-probe (Nph) Respiratory pathogens DNA and RNA panel - Nasopharynx by JONI with non-probe detection [facility] Respiratory pathogens DNA and RNA panel JONI+non-probe (Nph) Respiratory pathogens DNA and RNA panel - Nasopharynx by JONI with non-probe detection [facility] Serum or plasma albumin/glob ulin mass ratioOrdered By: Mat Perez on 10-04-2024 Albumin/Globulin [Mass ratio] Serum or plasma albumin/globulin mass ratio [facility] Serum or plasma anion gap de terminationOrdered By: Mat Perez on 10-04-2024 Anion gap [Moles/Vol] Serum or plasma an ion gap determination 6.0-15.0 [facility] Sodium [Moles/volume] in Ser um or PlasmaOrdered By: Mat Perez on 10-04-2024 Sodium [Moles/Vol] Sodium [Moles/volume ] in Serum or Plasma 136-145 [facility] Troponin I High Sensitivityo n 10-04-2024 Troponin I High Sensitivity 4 Normal 0-15 [facility] Comment on above: Result Comment: The Troponin units of report have been changed to meet the Chest Pain Accreditation requirement, element EC5.M1l2. Troponin units are changed from pg/ml to ng/L. Also, the decimal is removed and results are in whole numbers. PERFORMED BY: [place] [address] PATHOLOGIST POSITION CLASSIFIER NORAH LEVI M.D. Performed By: #### B MP #### [address] Troponin I.cardiac [Mass/vol ume] in Serum or Plasma by Detection limit <= 0.01 ng/Ordered By: Mat Perez on 10-04-2024 Troponin I.cardiac DL <= 0.01 ng/mL [Mass/Vol] Troponin I.cardiac [Mass/volume] in Serum or Plasma by Detection limit <= 0.01 ng/ 0-15 [facility] Comment on above: The Troponin units o f report have been changed to meet the Chest Pain Accreditation requirement, element EC5.M1l2. Troponin units are changed from pg/ml to ng/L. Also, the decimal is removed and results are in whole numbers. Urea nitrogen [Mass/volume] in Serum or PlasmaOrdered By: Mat Perez on 10-04-2024 Urea nitrogen [Mass/Vol] Urea nitrogen [Mass/volume] in Serum or Plasma 03-09 [facility] WBC Auto (Bld) [#/Vol]Ordere d By: Mat Perez on 10-04-2024 WBC (Bld) [#/Vol] Leukocytes [#/volume ] in Blood by Automated count 3.8-11.6 [facility] X-ray reportOrdered By: Reginaldo Cuevas on 10-04-2024 Study report [facility] [place] [address] [place] [address] XRay Report Signed Patient: Flash Irving MR#: [id number] : 1975 Acct:[id number] Age/Sex: 49 / F ADM Date: 5 Loc: ER Room: Type: [facility] ER Attending Dr: Copies to: Mat Perez MD~ Ordering Provider: Mat Perez MD Date of Service: 10/04/24 XR/XR chest 1V portable: Shortness of Breath/Dyspnea Plain film chest Single view HISTORY: Shortness of breath. Elevated heart rate COMPARISON: 05/06/2024 FINDINGS: SUPPORT DEVICES: None POSTSURGICAL CHANGES: None HEART: Within normal limits PULMONARY DUANE: Within normal limits MEDIASTINUM: Unremarkable LUNGS AND PLEURA: Diffuse right groundglass parenchymal densities and left lower lobe parenchymal densities. Similar finding. History of pulmonary fibrosis. No new consolidation. No pleural effusion or pneumothorax. BONY STRUCTURES: Intact ADDITIONAL FINDINGS None XR/XR chest 1V portable IMPRESSION: Similar right and left lower lobe groundglass parenchymal densities. May correlate with pulmonary fibrosis No new findings. Impression dictated by: Jabari Cuevas M.D.10/04/2024 1:00 PM Dictation Location: RADIO-PC-16 Transcribed By: AMBER 10/04/24 1300 Dictated By: Jabari Cuevas DO 10/04/24 1257 Signed By: 10/04/24 1300 [facility] XR chest 1V portableon 10-04 XR chest 1V portable [facility] Main [address] [address] XRay Report Signed Patient: Flash Irving MR#: [id number] 6 : 1975 Acct:[id number] Age/Sex: 49 / F ADM Date: 10/04/24 Loc: ER Room: Type: [facility] ER Attending Dr: Copies to: Mat Perez MD Ordering Provider: Mat Perez MD Date of Service: 10/04/24 XR/XR chest 1V portable: Shortness of Breath/Dyspnea Plain film chest Single view HISTORY: Shortness of breath. Elevated heart rate COMPARISON: 05/06/2024 FINDINGS: SUPPORT DEVICES: None POSTSURGICAL CHANGES: None HEART: Within normal limits PULMONARY DUANE: Within normal limits MEDIASTINUM: Unremarkable LUNGS AND PLEURA: Diffuse right groundglass parenchymal densities and left lower lobe parenchymal densities. Similar finding. History of pulmonary fibrosis. No new consolidation. No pleural effusion or pneumothorax. BONY STRUCTURES: Intact ADDITIONAL FINDINGS None XR/XR chest 1V portable IMPRESSION: Similar right and left lower lobe groundglass parenchymal densities. May correlate with pulmonary fibrosis No new findings. Impression dictated by: Jabari Cuevas M.D.10/04/2024 1:00 PM Dictation Location: RADIO-PC-16 Transcribed By: AMBER 10/04/24 1300 Dictated By: Jabari Cuevas DO 10/04/24 1257 Signed By: 10/04/24 1300 Normal [facility] Ceferino 09-27-2024 L ------- Specimen: [id number] Received: 09/28/24 Status: MYLES Wilkerson Num: [id number] Spec Type: Surgical Subm Dr: Gennaro Londono DO Tissues: A Endocervix - Curettings (ECC) Procedures: HE/2, Gross/Micro L4 Age/ Patient Sex Location Account Attending Physician Flash Irving 49/F [place] [id number] Gennaro Londono DO SPEC NUM: [id number] RECD: 09/28/24 STATUS: MYLES WILKERSON NUM: [id number] MITRA: 09/27/24-0000 [facility] DR: Gennaro Londono DO ENTERED: 09/28/24 JOSEPH EMANUEL: SPEC TYPE: Surgical DEPT: S ENTERED BY: [id number] RECV BY: [id number] ORDERED: HE/2, Gross/Micro L4 ORDERED: HE/2, Gross/Micro L4 Pathological Diagnosis Endocervical curettage: ? Mostly inspissated mucinous secretion with embedded scant endocervical cells and rare minute fragment of squamous mucosa, less than optimal for diagnosis Clinical Information Low-grade squamous intraepithelial lesion, positive human papilloma virus Gross Description Part A is received in formalin labeled with the patients name, date of , and ECC is a Telfa pad with an adherent stern-pink mucoid material, admixed with feathery barrera-pink tissue fragments, 1.8 x 1.5 x 0.3 cm in aggregate. The specimen is filtered and entirely submitted in a single cassette. (1, ns, [id number]) CPT Codes 71971 Specimen: [id number] Received: 09/28/24 Status: BENJAMINMaureen Wilkerson Num: [id number] Spec Type: Surgical Subm Dr: Gennaro Londono DO Tissues: A Endocervix - Curettings (ECC) Procedures: Adelaide MAZARIEGOS/Randee L4 Patient: Flash Irving [id number] (Continued) Signed (signature on file) Dung Arellano MD 09/29/24 0919 Normal [facility] Alanine aminotransferase [En zymatic activity/volume] in Serum or PlasmaOrdered By: Jabari Celeste on 08-14-2024 ALT [Catalytic activity/Vol] Alanine aminotransferase [Enzymatic activity/volume] in Serum or Plasma Low 7-52 [facility] Albumin [Mass/volume] in Ser um or Plasma by Bromocresol green (BCG) dye binding methoOrdered By: Jabari Celeste on 08-14-2024 Albumin BCG dye [Mass/Vol] Albumin [Mass/volume] in Serum or Plasma by Bromocresol green (BCG) dye binding metho 3.5-5.7 [facility] Alkaline phosphatase [Enzyma tic activity/volume] in Serum or PlasmaOrdered By: Jabari Celeste on 08-14-2024 ALP [Catalytic activity/Vol] Alkaline phosphatase [Enzymatic activity/volume] in Serum or Plasma 34-104 [facility] Aspartate aminotransferase [ Enzymatic activity/volume] in Serum or PlasmaOrdered By: Jabari Celeste on 08-14-2024 AST [Catalytic activity/Vol] Aspartate aminotransferase [Enzymatic activity/volume] in Serum or Plasma Low 13-39 [facility] Basophils Auto (Bld) [#/Vol] Ordered By: Jabari Celeste on 08-14-2024 Basophils (Bld) [#/Vol] Automated basophil count 0.0-0.2 [facility] Basophils/100 WBC Auto (Bld) Ordered By: Jabari Celeste on 08-14-2024 Basophils/100 WBC (Bld) Automated basophil % . [facility] Bilirubin.total [Mass/volume ] in Serum or PlasmaOrdered By: Jabari Celeste on 08-14-2024 Bilirubin [Mass/Vol] Bilirubin.total [Mass/volume] in Serum or Plasma 0.3-1.0 [facility] Calcium [Mass/volume] in Ser um or PlasmaOrdered By: Jabari Celeste on 08-14-2024 Calcium [Mass/Vol] Calcium [Mass/volume ] in Serum or Plasma 8.6-10.3 [facility] Carbon dioxide, total [Moles /volume] in Serum or PlasmaOrdered By: Jabari Celeste on 08-14-2024 CO2 [Moles/Vol] Carbon dioxide, tota l [Moles/volume] in Serum or Plasma High 21.0-31.0 [facility] Chloride [Moles/volume] in S luz maria or PlasmaOrdered By: Jabari Celeste on 08-14-2024 Chloride [Moles/Vol] Chloride [Moles/vol ume] in Serum or Plasma 98-107 [facility] Cholesterol [Mass/volume] in Serum or PlasmaOrdered By: Jabari Celeste on 08-14-2024 Cholesterol [Mass/Vol] Cholesterol [Mass /volume] in Serum or Plasma High 140-200 [facility] Comment on above: Chol less than 200 m g/dl low riskChol 201-239 mg/dl borderline riskChol 240 mg/dl and greater high risk Cholesterol in HDL [Mass/vol ume] in Serum or PlasmaOrdered By: Jabari Celeste on 08-14-2024 Cholesterol in HDL [Mass/Vol] Serum or plasma high density lipoprotein (HDL) cholesterol measurement 23-92 [facility] Comment on above: HDL CHOL ATP-III CLA SSIFICATION Cardiovascular RiskHDL > or equal to 60 mg/dL LOWHDL < 40 mg/dL HIGH Cholesterol in LDL Calc [Mas s/Vol]Ordered By: Jabari Celeste on 08-14-2024 Cholesterol in LDL [Mass/Vol] Cholesterol in LDL [Mass/volume] in Serum or Plasma by calculation High 0-100 [facility] Comment on above: LDL ATP III CLASSIFI CATIONLDL less than 100 mg/dL OptimalLDL 100-129 mg/dL Near or above optimalLDL 130-159 mg/dL Borderline highLDL 160-189 mg/dL HighLDL greater than 189 mg/dL Very high Cholesterol in VLDL Calc [Ma ss/Vol]Ordered By: Jabari Celeste on 08-14-2024 Cholesterol in VLDL [Mass/Vol] Cholesterol in VLDL [Mass/volume] in Serum or Plasma by calculation [facility] Complete Blood Count Auto Di ffon 08-14-2024 Basophils (Bld) [#/Vol] 0.0 10*3/uL Normal 0.0-0.2 [facility] Comment on above: Result Comment: PERF ORMED BY: [place] [address] PATHOLOGIST POSITION CLASSIFIER NORAH LEVI M.D. Performed By: #### T SH3, LIPID #### [address] Basophils/100 WBC (Bld) 0.6 % Normal . [facility] Comment on above: Performed By: #### T SH3, LIPID #### [address] Eosinophils (Bld) [#/Vol] 0.1 10*3/uL Normal 0.0-0.45 [facility] Comment on above: Performed By: #### T SH3, LIPID #### [address] Eosinophils/100 WBC (Bld) 1.0 % Normal . [facility] Comment on above: Performed By: #### T SH3, LIPID #### [address] Erythrocyte distribution width (RBC) [Ratio] 14.6 % Normal 11.9-15.3 [facility] Comment on above: Performed By: #### T SH3, LIPID #### [address] Hematocrit (Bld) [Volume fraction] 42.4 % Normal 34.0-46.4 [facility] Comment on above: Performed By: #### T SH3, LIPID #### [address] Hemoglobin (Bld) [Mass/Vol] 13.5 g/dL Normal 11.8-15.4 [facility] Comment on above: Performed By: #### T SH3, LIPID #### [address] Lymphocytes (Bld) [#/Vol] 2.0 10*3/uL Normal 1.00-4.8 [facility] Comment on above: Performed By: #### T SH3, LIPID #### [address] Lymphocytes/100 WBC (Bld) 24.1 % Normal . [facility] Comment on above: Performed By: #### T SH3, LIPID #### [address] MCH (RBC) [Entitic mass] 25.2 pg Normal 24.7-34.3 [facility] Comment on above: Performed By: #### T SH3, LIPID #### [address] MCV (RBC) [Entitic vol] 79.0 fL Low 80-100 [facility] Comment on above: Performed By: #### T SH3, LIPID #### [address] Mean Corpuscular HGB Conc 31.9 g/dL Low 32.0-35.0 [facility] Comment on above: Performed By: #### T SH3, LIPID #### [address] Monocytes (Bld) [#/Vol] 0.7 10*3/uL Normal 0.0-0.8 [facility] Comment on above: Performed By: #### T SH3, LIPID #### [address] Monocytes/100 WBC (Bld) 7.7 % Normal . [facility] Comment on above: Performed By: #### T SH3, LIPID #### [address] Neutrophils (Bld) [#/Vol] 5.6 10*3/uL Normal 1.8-7.7 [facility] Comment on above: Performed By: #### T SH3, LIPID #### [address] Neutrophils/100 WBC (Bld) 66.6 % Normal . [facility] Comment on above: Performed By: #### T SH3, LIPID #### [address] NRBC% 0.1 /100{WBC} Normal 0-0.5 [facility] Comment on above: Performed By: #### T SH3, LIPID #### [address] Platelet mean volume (Bld) [Entitic vol] 7.3 fL Normal 6.3-10.7 [facility] Comment on above: Performed By: #### T SH3, LIPID #### [address] Platelets (Bld) [#/Vol] 186 10*3/uL Normal 150-450 [facility] Comment on above: Performed By: #### T SH3, LIPID #### [address] RBC (Bld) [#/Vol] 5.37 10*6/uL High 3.60-5.00 [facility] Comment on above: Performed By: #### T SH3, LIPID #### [address] WBC (Bld) [#/Vol] 8.5 10*3/uL Normal 3.8-11.6 [facility] Comment on above: Performed By: #### T SH3, LIPID #### [address] Comprehensive Metabolic Pane ceferino 08-14-2024 Albumin [Mass/Vol] 4.1 g/dL Normal 3.5-5.7 [facility] Comment on above: Performed By: #### B MP #### [address] Albumin/Globulin [Mass ratio] 1.8 {ratio} Normal [facility] Comment on above: Performed By: #### B MP #### [address] ALP [Catalytic activity/Vol] 53 U/L Normal 34-104 [facility] Comment on above: Result Comment: PERF ORMED BY: [place] [address] PATHOLOGIST POSITION CLASSIFIER NORAH LEVI M.D. Performed By: #### B MP #### [address] ALT [Catalytic activity/Vol] 4 U/L Low 7-52 [facility] Comment on above: Performed By: #### B MP #### [address] Anion gap [Moles/Vol] 10.9 mmol/L Normal 6.0-15.0 [facility] Comment on above: Performed By: #### B MP #### [address] AST [Catalytic activity/Vol] 7 U/L Low 13-39 [facility] Comment on above: Performed By: #### B MP #### [address] Bilirubin [Mass/Vol] 0.8 mg/dL Normal 0.3-1.0 [facility] Comment on above: Performed By: #### B MP #### [address] Calcium [Mass/Vol] 9.3 mg/dL Normal 8.6-10.3 [facility] Comment on above: Performed By: #### B MP #### [address] Chloride [Moles/Vol] 103 mmol/L Normal 98-107 [facility] Comment on above: Performed By: #### B MP #### [place] [address] [place] CO2 [Moles/Vol] 31.4 mmol/L High 21.0-31.0 [facility] Comment on above: Performed By: #### B MP #### [place] [address] [place] Creatinine [Mass/Vol] 0.71 mg/dL Normal 0.60-1.20 [facility] Comment on above: Performed By: #### B MP #### [place] [address] [place] GFR/1.73 sq M.predicted MDRD (S/P/Bld) [Vol rate/Area] mL/min/{1.73_m2} Normal [facility] Comment on above: Performed By: #### B MP #### [address] Globulin (S) [Mass/Vol] 2.3 g/dL Normal [facility] Comment on above: Performed By: #### B MP #### [address] Glucose [Mass/Vol] 76 mg/dL Normal 70-100 [facility] Comment on above: Result Comment: [facility][note 3] Glucose Reference Range is dependent on time and content of last meal. Glucose of more than 200 mg/dL in a nonstressed, ambulatory subject supports the diagnosis of Diabetes Mellitus. ADA recommended reference range Performed By: #### B MP #### [address] Potassium [Moles/Vol] 3.3 mmol/L Low 3.5-5.1 [facility] Comment on above: Performed By: #### B MP #### [address] Protein [Mass/Vol] 6.4 g/dL Normal 6.4-8.9 [facility] Comment on above: Performed By: #### B MP #### [address] Sodium [Moles/Vol] 142 mmol/L Normal 136-145 [facility] Comment on above: Performed By: #### B MP #### [address] Urea nitrogen [Mass/Vol] 12 mg/dL Normal 7-25 [facility] Comment on above: Performed By: #### B MP #### [address] [place] [address] [facility] Creatinine [Mass/volume] in Serum or PlasmaOrdered By: Jabari Celeste on 08-14-2024 Creatinine [Mass/Vol] Creatinine [Mass/v olume] in Serum or Plasma 0.60-1.20 [facility] Eosinophils Auto (Bld) [#/Vo l]Ordered By: Jabari Celeste on 08-14-2024 Eosinophils (Bld) [#/Vol] Automated eosinophil count 0.0-0.45 [facility] Eosinophils/100 WBC Auto (Bl d)Ordered By: Jabari Celeste on 08-14-2024 Eosinophils/100 WBC (Bld) Automated eosinophil % . [facility] Erythrocyte distribution wid th Auto (RBC) [Ratio]Ordered By: Jabari Celeste on 08-14-2024 Erythrocyte distribution width (RBC) [Ratio] Erythrocyte distribution width [Ratio] by Automated count 11.9-15.3 [facility] Globulin Calc (S) [Mass/Vol] Ordered By: Jabari Celeste on 08-14-2024 Globulin (S) [Mass/Vol] Serum globulin measurement by calculation (mass/volume) [facility] Glucose [Mass/volume] in Ser um or PlasmaOrdered By: Jabari Celeste on 08-14-2024 Glucose [Mass/Vol] Glucose [Mass/volume ] in Serum or Plasma 70-100 [facility] Comment on above: ADA recommended refe rence rangeRandom Glucose Reference Range is dependent on time and content of last meal. Glucose of more than 200 mg/dL in a nonstressed, ambulatory subject supports the diagnosis of Diabetes Mellitus. Hematocrit Auto (Bld) [Volum e fraction]Ordered By: Jabari Celeste on 08-14-2024 Hematocrit (Bld) [Volume fraction] Hematocrit [Volume Fraction] of Blood by Automated count 34.0-46.4 [facility] Hemoglobin [Mass/volume] in BloodOrdered By: Jabari Celeste on 08-14-2024 Hemoglobin (Bld) [Mass/Vol] Hemoglobin [Mass/volume] in Blood 11.8-15.4 [facility] Leukocytes [#/volume] correc steff for nucleated erythrocytes in Blood by Automated counOrdered By: Jabari Celeste on 08-14-2024 WBC corrected for nucl RBC Auto (Bld) [#/Vol] Leukocytes [#/volume] corrected for nucleated erythrocytes in Blood by Automated coun 3.8-11.6 [facility] Lipid Panelon 08-14-2024 Cholesterol [Mass/Vol] 233 mg/dL High 140-200 [facility] Comment on above: Order Comment: DEBRA MELISSAW Result Comment: Chol less than 200 mg/dl low risk Chol 201-239 mg/dl borderline risk Chol 240 mg/dl and greater high risk Performed By: #### T SH3, LIPID #### [facility] [address] [id number] [facility] Cholesterol in HDL [Mass/Vol] 58 mg/dL Normal 23-92 [facility] Comment on above: Order Comment: DEBRA MELISSAW Result Comment: HDL CHOL ATP-III CLASSIFICATION Cardiovascular Risk HDL > or equal to 60 mg/dL LOW HDL < 40 mg/dL HIGH Performed By: #### T SH3, LIPID #### [facility] [address] [id number] [facility] Cholesterol.total/Chol esterol in HDL [Mass ratio] 4.0 {ratio} Normal <5.0 [facility] Comment on above: Order Comment: DEBRA MELISSAW Performed By: #### T SH3, LIPID #### [facility] [address] [id number] [place] LDL Cholesterol,Calculated 154 mg/dL High 0-100 [facility] Comment on above: Order Comment: DEBRA MELISSAW Result Comment: LDL ATP III CLASSIFICATION LDL less than 100 mg/dL Optimal LDL 100-129 mg/dL Near or above optimal LDL 130-159 mg/dL Borderline high LDL 160-189 mg/dL High LDL greater than 189 mg/dL Very high Performed By: #### T SH3, LIPID #### [facility] [address] [id number] [place] Triglyceride w/Reflex 106 mg/dL Normal 0-149 [facility] Comment on above: Order Comment: DEBRA MELISSAW Result Comment: TRIG ATP III CLASSIFICATION TRIG less than 150 mg/dL Normal TRIG 150-199 mg/dL Borderline high TRIG 200-500 mg/dL High TRIG greater than 500 mg/dL Very high Standard traceable to the Center for Disease Conrtrol and Prevention (CDC) test method. Performed By: #### T SH3, LIPID #### [facility] [address] VLDL CHOLESTEROL 21 mg/dL Normal [facility] Comment on above: Order Comment: DEBRA OLIVASJKW Performed By: #### T SH3, LIPID #### [facility] [address] Lymphocytes Auto (Bld) [#/Vo l]Ordered By: Jabari Celeste on 08-14-2024 Lymphocytes (Bld) [#/Vol] Lymphocytes [#/volume] in Blood by Automated count 1.00-4.8 [facility] Lymphocytes/100 WBC Auto (Bl d)Ordered By: Jabari Celeste on 08-14-2024 Lymphocytes/100 WBC (Bld) Lymphocytes/100 leukocytes in Blood by Automated count . [facility] MCH Auto (RBC) [Entitic mass ]Ordered By: Jabari Celeste on 08-14-2024 MCH (RBC) [Entitic mass] MCH [Entitic mass] by Automated count 24.7-34.3 [facility] MCHC Auto (RBC) [Mass/Vol]Or dered By: Jabari Celeste on 08-14-2024 MCHC (RBC) [Mass/Vol] MCHC [Mass/volume] by Automated count Low 32.0-35.0 [facility] MCV Auto (RBC) [Entitic vol] Ordered By: Jabari Celeste on 08-14-2024 MCV (RBC) [Entitic vol] MCV [Entitic volume] by Automated count Low 80-100 [facility] Monocytes Auto (Bld) [#/Vol] Ordered By: Jabari Celeste on 08-14-2024 Monocytes (Bld) [#/Vol] Automated blood monocyte count 0.0-0.8 [facility] Monocytes/100 WBC Auto (Bld) Ordered By: Jabari Celeste on 08-14-2024 Monocytes/100 WBC (Bld) Automated monocyte % . [facility] Neutrophils Auto (Bld) [#/Vo l]Ordered By: Jabari Celeste on 08-14-2024 Neutrophils (Bld) [#/Vol] Neutrophils [#/volume] in Blood by Automated count 1.8-7.7 [facility] Neutrophils/100 WBC Auto (Bl d)Ordered By: aJbari Celeste on 08-14-2024 Neutrophils/100 WBC (Bld) Automated neutrophil % . [facility] No Panel InformationOrdered By: Jabari Celeste on 08-14-2024 Estimated GFR (CKD-EPI) > 60.0 mL/Min [facility] Creatinine Clearance (Chem N/A [facility] Nucleated erythrocytes [Pres ence] in Blood by Automated countOrdered By: Jabari Celeste on 08-14-2024 Nucleated RBC Auto Ql (Bld) Nucleated erythrocytes [Presence] in Blood by Automated count 0-0.5 [facility] Phosphate [Mass/volume] in S luz maria or PlasmaOrdered By: Adelita Bhagat on 08-14-2024 Phosphate [Mass/Vol] Phosphate [Mass/vol ume] in Serum or Plasma 2.5-4.5 [facility] Phosphoruson 08-14-2024 Phosphate [Mass/Vol] 2.8 mg/dL Normal 2.5-4.5 [facility] Comment on above: Result Comment: PERF ORMED BY: [place] [address] PATHOLOGIST POSITION CLASSIFIER NORAH LEVI M.D. Performed By: #### T SH3, LIPID #### [address] Platelet mean volume Auto (B ld) [Entitic vol]Ordered By: Jabari Celeste on 08-14-2024 Platelet mean volume (Bld) [Entitic vol] Platelet mean volume [Entitic volume] in Blood by Automated count 6.3-10.7 [facility] Platelets Auto (Bld) [#/Vol] Ordered By: Jabari Celeste on 08-14-2024 Platelets (Bld) [#/Vol] Platelets [#/volume] in Blood by Automated count 150-450 [facility] Potassium [Moles/volume] in Serum or PlasmaOrdered By: Jabari Celeste on 08-14-2024 Potassium [Moles/Vol] Potassium [Moles/v olume] in Serum or Plasma Low 3.5-5.1 [facility] Protein [Mass/volume] in Ser um or PlasmaOrdered By: Jabari Celeste on 08-14-2024 Protein [Mass/Vol] Protein [Mass/volume ] in Serum or Plasma 6.4-8.9 [facility] RBC Auto (Bld) [#/Vol]Ordere d By: Jabari Celeste on 08-14-2024 RBC (Bld) [#/Vol] Erythrocytes [#/volu me] in Blood by Automated count High 3.60-5.00 [facility] Serum or plasma albumin/glob ulin mass ratioOrdered By: Jabari Celeste on 08-14-2024 Albumin/Globulin [Mass ratio] Serum or plasma albumin/globulin mass ratio [facility] Serum or plasma anion gap de terminationOrdered By: Jabari Celeste on 08-14-2024 Anion gap [Moles/Vol] Serum or plasma an ion gap determination 6.0-15.0 [facility] Serum or plasma total choles terol/high density lipoprotein (HDL) cholesterol mass ratOrdered By: Jabari Celeste on 08-14-2024 Cholesterol.total/Chol esterol in HDL [Mass ratio] Serum or plasma total cholesterol/high density lipoprotein (HDL) cholesterol mass rat <5.0 [facility] Sodium [Moles/volume] in Ser um or PlasmaOrdered By: Jabari Celeste on 08-14-2024 Sodium [Moles/Vol] Sodium [Moles/volume ] in Serum or Plasma 136-145 [facility] Thyroid Stimulating Hormoneo n 08-14-2024 TSH Qn 1.29 m[IU]/L Normal 0.45-5.33 [facility] Comment on above: Order Comment: DEBRA CAMERON Result Comment: PERF ORMED BY: [place] [address] PATHOLOGIST POSITION CLASSIFIER NORAH LEVI M.D. Performed By: #### T SH3, LIPID #### [address] Thyrotropin [Units/volume] i n Serum or PlasmaOrdered By: Jabari Celeste on 08-14-2024 TSH Qn Thyrotropin [Units/v olume] in Serum or Plasma 0.45-5.33 [facility] Triglyceride [Mass/volume] i n Serum or PlasmaOrdered By: Jabari Celeste on 08-14-2024 Triglyceride [Mass/Vol] Triglyceride [Mass/volume] in Serum or Plasma 0-149 [facility] Comment on above: TRIG ATP III CLASSIF ICATIONTRIG less than 150 mg/dL NormalTRIG 150-199 mg/dL Borderline highTRIG 200-500 mg/dL High TRIG greater than 500 mg/dL Very highStandard traceable to the Center for Disease Conrtrol and Prevention (CDC) test method. Urea nitrogen [Mass/volume] in Serum or PlasmaOrdered By: Jabari Celeste on 08-14-2024 Urea nitrogen [Mass/Vol] Urea nitrogen [Mass/volume] in Serum or Plasma 7-25 [facility] WBC Auto (Bld) [#/Vol]Ordere d By: Jabari Celeste on 08-14-2024 WBC (Bld) [#/Vol] Leukocytes [#/volume ] in Blood by Automated count 3.8-11.6 [facility] ANES POSTPROC EVALon 024 ANES POSTPROC EVAL HNO ID: [id number] Author: MAT CARREON MD Service: ? Author Type: Anesthesiologist Type: Anesthesia Postprocedure Evaluation Filed: 07/04/2024 13:37 Note Text: POST ANESTHESIA EVALUATION NOTE : 1975 Procedure Summary Date: 07/04/24 Room / Location: [place] [id number] / [facility] Anesthesia Start: 1146 Anesthesia Stop: 1203 Procedures: PHACOEMULSIFICATION CATARACT IMPLANT INTRAOCULAR LENS W/O ENDOSCOPIC CYCLOPHOTOCOAGULATION (Right: Eye) OPHTHALMIC BIOMETRY BY PARTIAL COHERENCE INTERFEROMETRY W/INTRAOCULAR LENS POWER CALCULATION (Right: Eye) (NOT COVERED) REFRACTIVE SERVICES RELATED TO INTRAOCULAR IMPLANT (FOR TORIC IOL) (Right) Diagnosis: Nuclear sclerotic cataract, bilateral (Nuclear sclerotic cataract, bilateral [H25.13]) Surgeons: Shubham Knox MD Responsible Provider: Mat Carreon MD Anesthesia Type: MAC ASA Status: 4 Anesthesia Type: MAC Last Vitals Vitals Value Taken Time BP 115/70 07/04/24 1212 Temp 36.2 ?C (97.2 ?F) 07/04/24 1202 Pulse 80 07/04/24 1212 Resp 18 07/04/24 1212 SpO2 100 % 07/04/24 1212 Post Anesthesia Patient Status Patient Evaluation: bedside. Anticipated Disposition: phase 2 then home. Neurological Status: aware and responsive. Pulmonary Status: breathing comfortably on room air Airway Control: returned to baseline unsupported. Cardiovascular Status: stable. Pain Management: satisfactory to patient - multimodal analgesia pain management approach Postoperative Hydration: acceptable. Intraoperative Events: no significant anesthesia events Post Operative Nausea/Vomiting Status: no significant post operative nausea or vomiting Recommendation: continue current plan of care. Anesthesia Observations No notable events were associated with this procedure. Documented by Hayder Talbot APRN.LANGUAGE SPECIALIST 07/04/2024 12:03 PM EST SIGNATURE: Mat Carreon MD PATIENT NAME: Flash Irving DATE: July 04, 2024 TIME: 1:37 PM CSN: [id number] Normal [facility] ANES PRE-OPon 07-04-2024 ANES PRE-OP HNO ID: [id number] Author: MAT CARREON MD Service: ? Author Type: Anesthesiologist Type: Anesthesia Preprocedure Evaluation Filed: 07/04/2024 11:38 Note Text: ANESTHESIOLOGY DAY OF SURGERY NOTE : 1975 Procedure Information Date/Time: 07/04/24 1136 Procedures: PHACOEMULSIFICATION CATARACT IMPLANT INTRAOCULAR LENS W/O ENDOSCOPIC CYCLOPHOTOCOAGULATION (Right: Eye) OPHTHALMIC BIOMETRY BY PARTIAL COHERENCE INTERFEROMETRY W/INTRAOCULAR LENS POWER CALCULATION (Right: Eye) (NOT COVERED) REFRACTIVE SERVICES RELATED TO INTRAOCULAR IMPLANT (FOR TORIC IOL) (Right) Location: [place] [address] / [facility] Surgeons: Shubham Knox MD Estimated body mass index is 28.35 kg/m? as calculated from the following: Height as of 06/14/24: 157.5 cm (5' 2 ). Weight as of 06/14/24: 70.3 kg (154 lb 15.7 oz). 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 Tracheostomy tube not present Mallampati: II. TM distance: >3 FB. Neck ROM: full ROM without neurological symptoms. Mouth opening: adequate. Short neck: no. Thick neck: no DENTAL Dental findings: teeth intact. II - ANESTHESIA PLAN ASA Score: 4 Anesthetic Plan: MAC NPO Status: adequate Beta Juan Monitoring Plan Monitoring plan: standard ASA. Post Procedure Analgesic Plan Postoperative analgesic plan: multimodal analgesia. Informed Consent Anesthetic risks, benefits, alternatives, personnel and consent discussed: yes. Patient / Responsible Constitution Party agrees to proceed: yes Patient / Surrogate agrees to blood products: blood products not planned Significant changes in the patient condition since the History and Physical, not otherwise documented in primary service progress note: no. Potential Anesthesia issues that may suggest increased risk of complications or contraindication to planned procedure: surgical field avoidance. field avoidance. The anesthetic will be complicated due to field avoidance because the surgical procedure will be around the airway (head, neck, or shoulder girdle). There will be no direct access to the patient's airway therefore increasing the technical difficulty. Vitals Value Taken Time BP 119/67 07/04/24 1056 Pulse 87 07/04/24 1056 Resp 18 07/04/24 1056 Temp 36.3 ?C (97.3 ?F) 07/04/24 1056 SpO2 99 % 07/04/24 1056 Facility-Administered Medications as of 07/04/2024 Medication Dose Route Frequency [COMPLETED] acetaminophen 650 mg tab(s) (TYLENOL) 650 mg ORAL ONCE [COMPLETED] lidocaine 4% 1 Drop ophthalmic solution (XYLOCAINE) 1 Drop RIGHT EYE q 5 MIN [COMPLETED] tropicamide 0.5% - cyclopentolate 0.5% - PHENYLephrine 2.5% ophthalmic syringe 1 Drop RIGHT EYE q 5 MIN [COMPLETED] acetaminophen 650 mg tab(s) (TYLENOL) 650 mg ORAL ONCE [COMPLETED] lidocaine 4% 1 Drop ophthalmic solution (XYLOCAINE) 1 Drop LEFT EYE q 5 MIN [COMPLETED] tropicamide 0.5% - cyclopentolate 0.5% - PHENYLephrine 2.5% ophthalmic syringe 1 Drop LEFT EYE q 5 MIN Outpatient Medications as of 07/04/2024 Medication Sig mycophenolate Mofetil (CELLCEPT) 500 mg tablet Take 2 tablets by mouth twice daily. ALPRAZolam (XANAX) 0.5 mg tablet Take 0.5 mg by mouth three times a day as needed for anxiety. predniSONE (DELTASONE) 10 mg tablet Take 1 tablet by mouth every morning. furosemide (LASIX) 40 mg tablet Take 1 tablet by mouth once daily. pantoprazole DR (PROTONIX) 40 mg tablet Take 1 tablet by mouth once daily. potassium chloride (K-TAB) 20 mEq TbER Take 1 tablet by mouth once daily. sildenafil (REVATIO) 20 mg tablet Take 20 mg by mouth three times a day. Cholecalciferol, Vitamin D3, 2,000 unit cap 2000 international units once daily with dinner Norethin-Eth Estrad Triphasic (ORTHO-NOVUM , ,) 0.5/0.75/1 mg- 35 mcg per tablet Take 1 tablet by mouth once daily. MULTIVITAMIN TABLET Take one(1) tablet daily. I have interviewed and examined the patient. I have reviewed the medical record and/or the pre-anesthesia evaluation, pertinent labs, and test results. This contains updated information obtained within 48 hours of Surgery/Procedure. SIGNATURE: Mat Carreon MD PATIENT NAME: Flash Irving DATE: July 04, 2024 TIME: 11:38 AM CSN: [id number] Normal [facility] OPERATIVE NOon 07-04-2024 OPERATIVE NO HNO ID: [id number] Author: SHUBHAM KNOX MD Service: Ophthalmology Author Type: Physician Type: Operative Report Filed: 07/04/2024 12:02 Note Text: OPERATIVE REPORT Surgery/Procedure Date: July 04, 2024 Name: Flash Irving [facility] #: [id number] Age: [age] year old Surgeon(s)/Proceduralist(s) and Band Saw Filer(s): Shubham Knox M.D. Anesthesia: Monitored Anesthesia Care Operations: Phacoemulsification with TORIC Intraocular lens placement right eye Preoperative Diagnosis: Nuclear Sclerotic Cataract right eye; regular astigmatism right eye Postoperative Diagnosis: Nuclear Sclerotic Cataract right eye; regular astigmatism right eye Operative Indications: The patient is a 49 year old female with decreased visual acuity right eye. After detailed discussion of the risks, benefits, and alternatives of cataract surgery, the patient wishes to proceed. In addition the patient has astigmatism and opts to have this reduced using a TORIC lens. Operative Findings: Nuclear Sclerosis Cataract, right eye Operative Procedure: Patient was brought into the operating room, placed supine on the table, given 4% lidocaine eye drops, prepped and draped in usual sterile fashion with the plastic drape to keep the lashes off the field. A temporal approach was taken. A paracentesis port was created temporally, through which a 0.5 mL of 1% preservative- free Xylocaine was instilled followed by special diluted phenylephrine, and viscoat. A 2.4 mm keratome created a clear corneal tunnel incision in the anterior chamber. A continuous tear capsulorhexis was performed using Utrata foreceps. Balanced salt solution was used to hydrodissect. Nuclear disassembly was performed using phacoemulsification and a combination chop technique. Irrigation and aspiration of residual cortical material was done. The posterior capsule was polished. The intraocular lens implant listed below was placed in the bag using a monarch injector. Implant Name Type Inv. Item Serial No. [employer] Roofer Helper Lot No. LRB No. Used Action Model No. [id number] [employer]IC [employer] - [id number] Intraocular Lens [id number] [employer] TORIC [employer] [id number] [employer] Right 1 Implanted [id number] I have reviewed the images and report on 07/04/2024 from the Ophthalmic Biometry to determine the Intraocular lens Power Calculation for the IOL lens implant. I have interpreted and agree with the calculation of the IOL as listed below. Residual viscoelastic was removed using the irrigation/aspiration handpiece.? Balanced salt solution was used to hydrate the wound. 0.1ml of cefuroxime (1 mg) was given intracameral. The eye felt normotensive. The patient left the operating room in good condition without any complications. Participation: Primary surgeon performed the entire procedure. Total CDE: 1.93 Start time: 11:53 End Time: 11:58 Estimated Blood Loss: 0 ml Specimens: none Implants: refer to operative procedure above Drains: none Complications: none Shubham Knox M.D. [facility] ANES POSTPROC EVALon 06-20-2 024 ANES POSTPROC EVAL HNO ID: [id number] Author: LAURENCE FROST MD Service: ? Author Type: Anesthesiologist Type: Anesthesia Postprocedure Evaluation Filed: 06/20/2024 16:22 Note Text: POST ANESTHESIA EVALUATION NOTE : 1975 Procedure Summary Date: 06/20/24 Room / Location: [address] Anesthesia Start: 1543 Anesthesia Stop: 1601 Procedures: PHACOEMULSIFICATION CATARACT IMPLANT INTRAOCULAR LENS W/O ENDOSCOPIC CYCLOPHOTOCOAGULATION (Left: Eye) OPHTHALMIC BIOMETRY BY PARTIAL COHERENCE INTERFEROMETRY W/INTRAOCULAR LENS POWER CALCULATION (Left: Eye) Diagnosis: Nuclear sclerotic cataract, bilateral (Nuclear sclerotic cataract, bilateral [H25.13]) Surgeons: Shubham Knox MD Responsible Provider: Laurence Frost MD Anesthesia Type: MAC ASA Status: 4 Anesthesia Type: MAC Last Vitals Vitals Value Taken Time BP 125/76 06/20/24 1610 Temp 36.6 ?C (97.8 ?F) 06/20/24 1600 Pulse 88 06/20/24 1610 Resp 18 06/20/24 1610 SpO2 98 % 06/20/24 1610 Post Anesthesia Patient Status Patient Evaluation: bedside. Anticipated Disposition: phase 2 then home. Neurological Status: aware and responsive. Pulmonary Status: breathing comfortably on room air Airway Control: returned to baseline unsupported. Cardiovascular Status: stable. Pain Management: satisfactory to patient - multimodal analgesia pain management approach Postoperative Hydration: acceptable. Intraoperative Events: no significant anesthesia events Post Operative Nausea/Vomiting Status: no significant post operative nausea or vomiting Recommendation: continue current plan of care. Anesthesia Observations No Documentation SIGNATURE: Laurence Frost MD PATIENT NAME: Flash Irving DATE: June 20, 2024 TIME: 4:22 PM CSN: [id number] Normal [facility] ANES PRE-OPon 06-20-2024 ANES PRE-OP HNO ID: [id number] Author: LAURENCE FROST MD Service: ? Author Type: Anesthesiologist Type: Anesthesia Preprocedure Evaluation Filed: 06/20/2024 15:35 Note Text: ANESTHESIOLOGY DAY OF SURGERY NOTE : 1975 Procedure Information Date/Time: 06/20/24 1621 Procedures: PHACOEMULSIFICATION CATARACT IMPLANT INTRAOCULAR LENS W/O ENDOSCOPIC CYCLOPHOTOCOAGULATION (Left: Eye) OPHTHALMIC BIOMETRY BY PARTIAL COHERENCE INTERFEROMETRY W/INTRAOCULAR LENS POWER CALCULATION (Left: Eye) Location: [place] [address] / [facility] Surgeons: Shubham Knox MD Estimated body mass index is 28.35 kg/m? as calculated from the following: Height as of 06/14/24: 157.5 cm (5' 2 ). Weight as of 06/14/24: 70.3 kg (154 lb 15.7 oz). 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 Tracheostomy tube not present Mallampati: II. TM distance: >3 FB. Neck ROM: full ROM without neurological symptoms. Mouth opening: adequate. Short neck: no. Thick neck: no II - ANESTHESIA PLAN ASA Score: 4 Anesthetic Plan: MAC NPO Status: adequate Anesthetic plan additional comments: Pulmonary condition is stable. Has had IV sedation within the past year without any difficulty or exacerbation of pulmonary symptoms. Takes xanax intermittently without any adverse effects. Per cardiology note in 12/07, most recent echo showed nl RV size and function.. Beta Juan Monitoring Plan Monitoring plan: standard ASA. Post Procedure Analgesic Plan Postoperative analgesic plan: multimodal analgesia. Informed Consent Anesthetic risks, benefits, alternatives, personnel and consent discussed: yes. Patient / Responsible Constitution Party agrees to proceed: yes Patient / Surrogate agrees to blood products: blood products not planned Significant changes in the patient condition since the History and Physical, not otherwise documented in primary service progress note: no. Potential Anesthesia issues that may suggest increased risk of complications or contraindication to planned procedure: surgical field avoidance. field avoidance. The anesthetic will be complicated due to field avoidance because the surgical procedure will be around the airway (head, neck, or shoulder girdle). There will be no direct access to the patient's airway therefore increasing the technical difficulty. Vitals Value Taken Time BP 120/68 06/20/24 1509 Pulse 90 06/20/24 1509 Resp 15 06/20/24 1509 Temp 36.2 ?C (97.2 ?F) 06/20/24 1509 SpO2 96 % 06/20/24 1509 Facility-Administered Medications as of 06/20/2024 Medication Dose Route Frequency [COMPLETED] acetaminophen 650 mg tab(s) (TYLENOL) 650 mg ORAL ONCE [COMPLETED] lidocaine 4% 1 Drop ophthalmic solution (XYLOCAINE) 1 Drop LEFT EYE q 5 MIN [COMPLETED] tropicamide 0.5% - cyclopentolate 0.5% - PHENYLephrine 2.5% ophthalmic syringe 1 Drop LEFT EYE q 5 MIN Outpatient Medications as of 06/20/[address] (PROTONIX) 40 mg tablet Take 1 tablet by mouth once daily. mycophenolate Mofetil (CELLCEPT) 500 mg tablet Take 2 tablets by mouth twice daily. Norethin-Eth Estrad Triphasic (ORTHO-NOVUM , ,) 0.5/0.75/1 mg- 35 mcg per tablet Take 1 tablet by mouth once daily. ALPRAZolam (XANAX) 0.5 mg tablet Take 0.5 mg by mouth three times a day as needed for anxiety. predniSONE (DELTASONE) 10 mg tablet Take 1 tablet by mouth every morning. furosemide (LASIX) 40 mg tablet Take 1 tablet by mouth once daily. potassium chloride (K-TAB) 20 mEq TbER Take 1 tablet by mouth once daily. sildenafil (REVATIO) 20 mg tablet Take 20 mg by mouth three times a day. ergocalciferol 50,000 unit capsule (VITAMIN D2, DRISDOL) Take 1 capsule by mouth two times a week. (FOR EXAMPLE ONE CAPSULE ON WEDNESDAY AND ONE ON WEDNESDAY) FOR A TOTAL OF 8 WEEKS, WITH A MEAL Cholecalciferol, Vitamin D3, 2,000 unit cap 2000 international units once daily with dinner MULTIVITAMIN TABLET Take one(1) tablet daily. I have interviewed and examined the patient. I have reviewed the medical record and/or the pre-anesthesia evaluation, pertinent labs, and test results. This contains updated information obtained within 48 hours of Surgery/Procedure. SIGNATURE: Laurence Frost MD PATIENT NAME: Flash Irving DATE: June 20, 2024 TIME: 3:16 PM CSN: [id number] Normal [facility] OPERATIVE NOon 06-20-2024 OPERATIVE NO HNO ID: [id number] Author: SHUBHAM KNOX MD Service: Ophthalmology Author Type: Physician Type: Operative Report Filed: 06/20/2024 15:57 Note Text: OPERATIVE REPORT Surgery/Procedure Date: June 20, 2024 Name: Flash Irving [facility] #: [id number] Age: [age] year old Surgeon(s)/Proceduralist(s) and Band Saw Filer(s): Shubham Knox M.D. and Alexis Proctor M.D. (observing) Anesthesia: Monitored Anesthesia Care Operations: Phacoemulsification with Intraocular lens placement left eye Preoperative Diagnosis: Nuclear Sclerotic Cataract left eye Postoperative Diagnosis: Nuclear Sclerotic Cataract left eye Operative Indications: The patient is a 49 year old female with decreased visual acuity left eye. After detailed discussion of the risks, benefits, and alternatives of cataract surgery, the patient wishes to proceed. Operative Findings: Nuclear Sclerosis Cataract, left eye Operative Procedure: Patient was brought into the operating room, placed supine on the table, given 4% lidocaine eye drops, prepped and draped in usual sterile fashion with the plastic drape to keep the lashes off the field. A temporal approach was taken. A paracentesis port was created temporally, through which a 0.5 mL of 1% preservative- free Xylocaine was instilled followed by special diluted phenylephrine, and viscoat. A 2.4 mm keratome created a clear corneal tunnel incision in the anterior chamber. A continuous tear capsulorhexis was performed using Utrata foreceps. Balanced salt solution was used to hydrodissect. Nuclear disassembly was performed using phacoemulsification and a combination chop technique. Irrigation and aspiration of residual cortical material was done. The posterior capsule was polished. The intraocular lens implant listed below was placed in the bag using a monarch injector. Implant Name Type Inv. Item Serial No. [employer] [place] Roofer Helper Lot No. LRB No. Used Action Model No. [id number] [employer] - [id number] Intraocular Lens [id number] [employer] [id number] MILAG[employer] SURGICAL Left 1 Implanted [id number] I have reviewed the images and report on 06/20/2024 from the Ophthalmic Biometry to determine the Intraocular lens Power Calculation for the IOL lens implant. I have interpreted and agree with the calculation of the IOL as listed below. Residual viscoelastic was removed using the irrigation/aspiration handpiece.? Balanced salt solution was used to hydrate the wound. 0.1ml of cefuroxime (1 mg) was given intracameral. The eye felt normotensive. The patient left the operating room in good condition without any complications. Participation: Primary surgeon performed the entire procedure. Total CDE: 7.97 Start time: 3:48 End Time: 3:56 Estimated Blood Loss: 0 ml Specimens: none Implants: refer to operative procedure above Drains: none Complications: none Shubham Knox M.D. Normal [facility] CNOVon 06-14-2024 CNOV Office Visit (IMOPMN ) MARIA FERNANDAFLASH Carlo ([id number]) 1975 F Date Time Provider Department 06/14/24 11:00 AM BELKIS ARANDA [facility] During your visit today, we recorded the following information about you: Pulse Blood pressure Weight Height 97/minute 96/68 70.3 kg 1.575 m Loren Donovan LPN 06/14/2024 11:10 AM Signed Surgeon:Dr Knox Type of surgery:PHACOEMULSIFICATION CATARACT IMPLANT INTRAOCULAR LENS W/O ENDOSCOPIC CYCLOPHOTOCOAGULATION Date of surgery:06/20 OS 07/04 OD Identified patient by name and ?yes Pacemaker or ICD? Last pacemaker check: Reviewed medications?by provider Belkis Aranda PA-C 06/21/2024 2:43 PM Addendum HISTORY AND PHYSICAL EXAMINATION (IMPACT) SERVICE DATE: 06/14/2024 SERVICE TIME: 11:05 AM PRIMARY CARE PHYSICIAN: Jabari Celeste DO CHIEF COMPLAINT/HISTORY OF PRESENT ILLNESS: Ms. Irving is a 49 year old female referred to me for preoperative evaluation. My final recommendations will be communicated back to the requesting physician/surgeon by the way of the shared medical record. Referring Surgeon: Dr. Shubham Knox Date of Surgery: Right eye 07/04/2024 Left eye 06/20/2024 Planned Surgery/Procedure: Phacoemulsification Posterior Intraocular lens both eyes Indication for Planned Surgery / Procedure: Cataract both eyes MAC - Hernan Refer to Assessment section for details of any comorbidities. Patient is Able to Perform the Following Physical Activity: Walk a block or two on level ground (2.75 METs) Climb a flight of stairs or walk up a hill (5.50 METs) Does chair exercises 10-15 minutes 3 times per week. Patient's functional class is II based on self-reported physical activity. Significant Anesthesia Considerations: Postop nausea/vomiting. PAST MEDICAL/SURGICAL/FAMILY/SOC IAL HISTORY PAST MEDICAL HISTORY Diagnosis Date Family history of MS (multiple sclerosis) Former smoker GERD (gastroesophageal reflux disease) ILD (interstitial lung disease) (HCC) NSIP (nonspecific interstitial pneumonia) (HCC) Polymyositis (HCC) Raynaud's phenomenon Recurrent spontaneous pneumothorax PAST SURGICAL HISTORY Procedure Laterality Date CHEMICAL PLEURODESIS FAMILY HISTORY Problem Relation Age of Onset Multiple Sclerosis Sister SOCIAL HISTORY Social History Tobacco Use Smoking status: Former Smokeless tobacco: Never MEDICATIONS/ALLERGIES Current Outpatient Medications Medication Sig Dispense Refill INV PREDNISONE 5 MG, 20 MG, OR PLACEBO CAPSULE (IRB 23-781) Take 10 capsules by mouth once daily. ergocalciferol 50,000 unit capsule (VITAMIN D2, DRISDOL) Take 1 capsule by mouth two times a week. (FOR EXAMPLE ONE CAPSULE ON WEDNESDAY AND ONE ON WEDNESDAY) FOR A TOTAL OF 8 WEEKS, WITH A MEAL 8 capsule 1 acetaminophen (TYLENOL) 325 mg tablet Take 2 tablets by mouth every 4 hours as needed. 30 tablet 0 Cholecalciferol, Vitamin D3, 2,000 unit cap 2000 international units once daily with dinner mycophenolate Mofetil (CELLCEPT) 500 mg tablet Take 2 tablets by mouth twice daily. 120 tablet 6 Norethin-Eth Estrad Triphasic (ORTHO-NOVUM , ,) 0.5/0.75/1 mg- 35 mcg per tablet Take 1 tablet by mouth once daily. ESOMEPRAZOLE MAGNESIUM (NEXIUM ORAL) Take by mouth. MULTIVITAMIN TABLET Take one(1) tablet daily. 0 0 Current Facility-Administered Medications Medication Dose Route Frequency Provider Last Rate Last Admin tropicamide 1 % 1 Drop (MYDRIACYL) 1 Drop BOTH EYES As Directed Shubham Knox MD 1 Drop at 06/14/24 09 fluorescein-benoxinate 0.3-0.4 % 1 Drop (FLURESS) 1 Drop BOTH EYES As Directed Shubham Knox MD 1 Drop at 06/14/24 0906 ALLERGIES No Known Allergies REVIEW OF SYSTEMS General: No weight loss, malaise or fevers. 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 No neurological symptoms or problems. Respiratory: COPD, Hospitalized for COPD, ILD, pulmonary fibrosis, 5 liters O2 continuous, Chronic hypoxemic respiratory failure. Denies orthopnea Cardiovascular: No history of HTN requiring medication, no history of angina, CHF, IN, cardiac surgery or stents. Denies rest pain, gangrene or revascularization/amputatio n for PVD. No history of cardiovascular symptoms or problems., HCL, Pulmonary HTN, LLE. Denies chest pain GI: No history of GI symptoms or problems. No history of esophageal varices, recent ascites, or ETOH greater than 2 drinks per day. : No history of UTI in past 6 weeks. No history of renal failure. Not currently on or requiring dialysis. No history of symptoms or problems. MANAGER PORT: No vaginal bleeding due to menopause and no abnormal vaginal discharge., LMP: 06/13/2024 Endocrine: No history of diabetes. Has not taken steroids within the past 30 days. No history of endocrinological symptoms or problems. Hematology: No history of bleeding or clotting (more content not included)... Normal [facility] HISTORY PHYSICALon HISTORY PHYSICAL HNO ID: [id number] Author: BELKIS ARANDA PA-C Service: ? Author Type: Physician Band Saw Filer Type: H&P Filed: 06/21/2024 14:43 Note Text: HISTORY AND PHYSICAL EXAMINATION (IMPACT) SERVICE DATE: 06/14/2024 SERVICE TIME: 11:05 AM PRIMARY CARE PHYSICIAN: Jabari Celeste DO CHIEF COMPLAINT/HISTORY OF PRESENT ILLNESS: Ms. Irving is a 49 year old female referred to me for preoperative evaluation. My final recommendations will be communicated back to the requesting physician/surgeon by the way of the shared medical record. Referring Surgeon: Dr. Shubham Knox Date of Surgery: Right eye 07/04/2024 Left eye 06/20/2024 Planned Surgery/Procedure: Phacoemulsification Posterior Intraocular lens both eyes Indication for Planned Surgery / Procedure: Cataract both eyes MAC - Hernan Refer to Assessment section for details of any comorbidities. Patient is Able to Perform the Following Physical Activity: Walk a block or two on level ground (2.75 METs) Climb a flight of stairs or walk up a hill (5.50 METs) Does chair exercises 10-15 minutes 3 times per week. Patient's functional class is II based on self-reported physical activity. Significant Anesthesia Considerations: Postop nausea/vomiting. PAST MEDICAL/SURGICAL/FAMILY/SOC IAL HISTORY PAST MEDICAL HISTORY Diagnosis Date Family history of MS (multiple sclerosis) Former smoker GERD (gastroesophageal reflux disease) ILD (interstitial lung disease) (HCC) NSIP (nonspecific interstitial pneumonia) (HCC) Polymyositis (HCC) Raynaud's phenomenon Recurrent spontaneous pneumothorax PAST SURGICAL HISTORY Procedure Laterality Date CHEMICAL PLEURODESIS FAMILY HISTORY Problem Relation Age of Onset Multiple Sclerosis Sister SOCIAL HISTORY Social History Tobacco Use Smoking status: Former Smokeless tobacco: Never MEDICATIONS/ALLERGIES Current Outpatient Medications Medication Sig Dispense Refill INV PREDNISONE 5 MG, 20 MG, OR PLACEBO CAPSULE (IRB [id number]) Take 10 capsules by mouth once daily. ergocalciferol 50,000 unit capsule (VITAMIN D2, DRISDOL) Take 1 capsule by mouth two times a week. (FOR EXAMPLE ONE CAPSULE ON WEDNESDAY AND ONE ON WEDNESDAY) FOR A TOTAL OF 8 WEEKS, WITH A MEAL 8 capsule 1 acetaminophen (TYLENOL) 325 mg tablet Take 2 tablets by mouth every 4 hours as needed. 30 tablet 0 Cholecalciferol, Vitamin D3, 2,000 unit cap 2000 international units once daily with dinner mycophenolate Mofetil (CELLCEPT) 500 mg tablet Take 2 tablets by mouth twice daily. 120 tablet 6 Norethin-Eth Estrad Triphasic (ORTHO-NOVUM , 28,) 0.5/0.75/1 mg- 35 mcg per tablet Take 1 tablet by mouth once daily. ESOMEPRAZOLE MAGNESIUM (NEXIUM ORAL) Take by mouth. MULTIVITAMIN TABLET Take one(1) tablet daily. 0 0 Current Facility-Administered Medications Medication Dose Route Frequency Provider Last Rate Last Admin tropicamide 1 % 1 Drop (MYDRIACYL) 1 Drop BOTH EYES As Directed Shubham Knox MD 1 Drop at 06/14/24 0906 fluorescein-benoxinate 0.3-0.4 % 1 Drop (FLURESS) 1 Drop BOTH EYES As Directed Shubham Knox MD 1 Drop at 06/14/24 0906 ALLERGIES No Known Allergies REVIEW OF SYSTEMS General: No weight loss, malaise or fevers. 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 No neurological symptoms or problems. Respiratory: COPD, Hospitalized for COPD, ILD, pulmonary fibrosis, 5 liters O2 continuous, Chronic hypoxemic respiratory failure. Denies orthopnea Cardiovascular: No history of HTN requiring medication, no history of angina, CHF, IN, cardiac surgery or stents. Denies rest pain, gangrene or revascularization/amputatio n for PVD. No history of cardiovascular symptoms or problems., HCL, Pulmonary HTN, LLE. Denies chest pain GI: No history of GI symptoms or problems. No history of esophageal varices, recent ascites, or ETOH greater than 2 drinks per day. : No history of UTI in past 6 weeks. No history of renal failure. Not currently on or requiring dialysis. No history of symptoms or problems. MANAGER PORT: No vaginal bleeding due to menopause and no abnormal vaginal discharge., LMP: 06/13/2024 Endocrine: No history of diabetes. Has not taken steroids within the past 30 days. No history of endocrinological symptoms or problems. Hematology: No history of bleeding or clotting disorder. No history of hematological symptoms or problems. Oncology: No history of CA metastasis, chemo within 30 days, or radiotherapy within 90 days. No history of oncological symptoms or problems., s/p melanoma of the back. Denies chemo or XRT Psych: No history of psychiatric symptoms or problems. Skin: Negative for lesions, rash, and itching. PHYSICAL EXAM VITALS: BP 96/68 Pulse 97 Ht 5' 2 (1.58m) Wt 154 lb 15.7 oz (70.3kg) SpO2 96[NC 6L]% LMP 06/26/2014 BMI 28.34 kg/(m2). General: Alert and oriented, No acute distress, Healthy appearance Skin: Normal color, no rash, (more content not included)... Normal [facility] Alanine aminotransferase [En zymatic activity/volume] in Serum or PlasmaOrdered By: Letitia Cruz on 05-12-2024 ALT [Catalytic activity/Vol] 24 U/L Normal [facility] Comment on above: Performed By: #### T SH3, LIPID #### [facility] [address] [place] [address] [place] ALT [Catalytic activity/Vol] Alanine aminotransferase [Enzymatic activity/volume] in Serum or Plasma [facility] Albumin [Mass/volume] in Ser um or Plasma by Bromocresol green (BCG) dye binding methoOrdered By: Letitia Cruz on 05-12-2024 Albumin BCG dye [Mass/Vol] 3.2 g/dL Low 3.5-5.7 [facility] Albumin BCG dye [Mass/Vol] Albumin [Mass/volume] in Serum or Plasma by Bromocresol green (BCG) dye binding metho Low 3.5-5.7 [facility] Alkaline phosphatase [Enzyma tic activity/volume] in Serum or PlasmaOrdered By: Letitia Cruz on 05-12-2024 ALP [Catalytic activity/Vol] 37 U/L Normal [facility] Comment on above: Performed By: #### T SH3, LIPID #### [facility] [address] [place] [address] [place] ALP [Catalytic activity/Vol] Alkaline phosphatase [Enzymatic activity/volume] in Serum or Plasma [facility] Aspartate aminotransferase [ Enzymatic activity/volume] in Serum or PlasmaOrdered By: Letitia Cruz on 05-12-2024 AST [Catalytic activity/Vol] 9 U/L Low [facility] Comment on above: Performed By: #### T SH3, LIPID #### [facility] [address] [place] [address] [place] AST [Catalytic activity/Vol] Aspartate aminotransferase [Enzymatic activity/volume] in Serum or Plasma Low 13-39 [facility] Basic Metabolic Panelon 04-17 Creatinine Clr Calc Pharmacy 110.95 Normal [facility] Comment on above: Result Comment: PERF ORMED BY: [place] [address] PATHOLOGIST POSITION CLASSIFIER LIVAN GREEN M.D. Performed By: #### T SH3, LIPID #### [address] GFR/1.73 sq M.predicted MDRD (S/P/Bld) [Vol rate/Area] mL/min/{1.73_m2} Normal [facility] Comment on above: Performed By: #### T SH3, LIPID #### [address] Bilirubin.direct [Mass/volum e] in Serum or PlasmaOrdered By: Letitia Cruz on 05-12-2024 Bilirubin.direct [Mass/Vol] 0.20 mg/dL High 0.03-0.18 [facility] Bilirubin.direct [Mass/Vol] Bilirubin.direct [Mass/volume] in Serum or Plasma High 0.03-0.18 [facility] Bilirubin.total [Mass/volume ] in Serum or PlasmaOrdered By: Letitia Cruz on 05-12-2024 Bilirubin [Mass/Vol] 0.8 mg/dL Normal 0.3-1.0 [facility] Comment on above: Performed By: #### T SH3, LIPID #### [address] Bilirubin [Mass/Vol] Bilirubin.total [Mass/volume] in Serum or Plasma 0.3-1.0 [facility] Calcium [Mass/volume] in Ser um or PlasmaOrdered By: Chilo Santos on 05-12-2024 Calcium [Mass/Vol] 8.3 mg/dL Low 8.6-10.3 [facility] Comment on above: Performed By: #### T SH3, LIPID #### [address] Calcium [Mass/Vol] Calcium [Mass/volume ] in Serum or Plasma Low 8.6-10.3 [facility] Carbon dioxide, total [Moles /volume] in Serum or PlasmaOrdered By: Chilo Santos on 05-12-2024 CO2 [Moles/Vol] 27.7 mmol/L Normal 21.0-31.0 [facility] Comment on above: Performed By: #### T SH3, LIPID #### [facility] [address] CO2 [Moles/Vol] Carbon dioxide, tota l [Moles/volume] in Serum or Plasma 21.0-31.0 [facility] Chloride [Moles/volume] in S luz maria or PlasmaOrdered By: Chilo Santos on 05-12-2024 Chloride [Moles/Vol] 99 mmol/L Normal 98-107 [facility] Comment on above: Performed By: #### T SH3, LIPID #### [facility] [address] Chloride [Moles/Vol] Chloride [Moles/vol ume] in Serum or Plasma 98-107 [facility] Creatinine [Mass/volume] in Serum or PlasmaOrdered By: Chilo Santos on 05-12-2024 Creatinine [Mass/Vol] 0.58 mg/dL Low 0.60-1.20 [facility] Comment on above: Performed By: #### T SH3, LIPID #### [facility] [address] Creatinine [Mass/Vol] Creatinine [Mass/v olume] in Serum or Plasma Low 0.60-1.20 [facility] Globulin Calc (S) [Mass/Vol] Ordered By: Letitia Cruz on 05-12-2024 Globulin (S) [Mass/Vol] Serum globulin measurement by calculation (mass/volume) [facility] Glucose [Mass/volume] in Ser um or PlasmaOrdered By: Chilo Santos on 05-12-2024 Glucose [Mass/Vol] 123 mg/dL High 70-100 [facility] Comment on above: ADA recommended refe rence rangeRandom Glucose Reference Range is dependent on time and content of last meal. Glucose of more than 200 mg/dL in a nonstressed, ambulatory subject supports the diagnosis of Diabetes Mellitus. Result Comment: [place] om Glucose Reference Range is dependent on time and content of last meal. Glucose of more than 200 mg/dL in a nonstressed, ambulatory subject supports the diagnosis of Diabetes Mellitus. ADA recommended reference range Performed By: #### T SH3, LIPID #### [facility] [address] Glucose [Mass/Vol] Glucose [Mass/volume ] in Serum or Plasma High 70-100 [facility] Comment on above: ADA recommended refe rence rangeRandom Glucose Reference Range is dependent on time and content of last meal. Glucose of more than 200 mg/dL in a nonstressed, ambulatory subject supports the diagnosis of Diabetes Mellitus. Hepatic Panelon 05-12-2024 Albumin [Mass/Vol] 3.2 g/dL Low 3.5-5.7 [facility] Comment on above: Performed By: #### T SH3, LIPID #### [address] Bilirubin,Indirect 0.6 mg/dL Normal [facility] Comment on above: Performed By: #### T SH3, LIPID #### [address] Bilirubin.indirect [Mass/Vol] 0.20 mg/dL High 0.03-0.18 [facility] Comment on above: Performed By: #### T SH3, LIPID #### [address] No Panel InformationOrdered By: Chilo Santos on 05-12-2024 Estimated GFR (CKD-EPI) > 60.0 mL/Min [facility] Creatinine Clearance (Chem 110.95 [facility] Potassium [Moles/volume] in Serum or PlasmaOrdered By: Chilo Santos on 05-12-2024 Potassium [Moles/Vol] 4.2 mmol/L Normal 3.5-5.1 [facility] Comment on above: Performed By: #### T SH3, LIPID #### [address] Potassium [Moles/Vol] Potassium [Moles/v olume] in Serum or Plasma 3.5-5.1 [facility] Protein [Mass/volume] in Ser um or PlasmaOrdered By: Letitia Cruz on 05-12-2024 Protein [Mass/Vol] 5.5 g/dL Low 6.4-8.9 [facility] Comment on above: Performed By: #### T SH3, LIPID #### [facility] [address] [place] [address] Protein [Mass/Vol] Protein [Mass/volume ] in Serum or Plasma Low 6.4-8.9 [facility] Serum globulin measurement b y calculation (mass/volume)Ordered By: Letitia Cruz on 05-12-2024 Globulin (S) [Mass/Vol] 2.3 g/dL Normal [facility] Comment on above: Performed By: #### T SH3, LIPID #### [facility] [address] [place] [address] Serum or plasma albumin/glob ulin mass ratioOrdered By: Letitia Cruz on 05-12-2024 Albumin/Globulin [Mass ratio] 1.4 {ratio} [facility] Comment on above: Performed By: #### T SH3, LIPID #### [facility] [address] [place] [address] Albumin/Globulin [Mass ratio] Serum or plasma albumin/globulin mass ratio [facility] Serum or plasma anion gap de terminationOrdered By: Chilo Santos on 05-12-2024 Anion gap [Moles/Vol] 11.5 mmol/L Normal 6.0-15.0 [facility] Comment on above: Performed By: #### T SH3, LIPID #### [facility] [address] [place] [address] Anion gap [Moles/Vol] Serum or plasma an ion gap determination 6.0-15.0 [facility] Serum or plasma non-glucuron idated bilirubin measurement (mass/volume)Ordered By: Letitia Cruz on 05-12-2024 Bilirubin.indirect [Mass/Vol] 0.6 mg/dL [facility] Bilirubin.indirect [Mass/Vol] Serum or plasma non-glucuronidated bilirubin measurement (mass/volume) [facility] Sodium [Moles/volume] in Ser um or PlasmaOrdered By: Chilo Santos on 05-12-2024 Sodium [Moles/Vol] 134 mmol/L Low 136-145 [facility] Comment on above: Performed By: #### T SH3, LIPID #### [address] Sodium [Moles/Vol] Sodium [Moles/volume ] in Serum or Plasma Low 136-145 [facility] Urea nitrogen [Mass/volume] in Serum or PlasmaOrdered By: Chilo Santos on 05-12-2024 Urea nitrogen [Mass/Vol] 19 mg/dL Normal 03-09 [facility] Comment on above: Performed By: #### T SH3, LIPID #### [address] Urea nitrogen [Mass/Vol] Urea nitrogen [Mass/volume] in Serum or Plasma 03-09 [facility] Automated basophil %Ordered By: Chilo Santos on 05-11-2024 Basophils/100 WBC (Bld) 0.1 % Normal . [facility] Comment on above: Performed By: #### C DT #### [address] Automated basophil countOrde red By: Chilo Santos on 05-11-2024 Basophils (Bld) [#/Vol] 0.0 10*3/uL Normal 0.0-0.2 [facility] Comment on above: Performed By: #### C DT #### [address] Automated blood monocyte cou ntOrdered By: Chilo Santos on 05-11-2024 Monocytes (Bld) [#/Vol] 0.8 10*3/uL Normal 0.0-0.8 [facility] Comment on above: Performed By: #### C DT #### [address] [address] Automated eosinophil %Ordere d By: Chilo Santos on 05-11-2024 Eosinophils/100 WBC (Bld) 0.0 % Normal . [facility] Comment on above: Performed By: #### C DT #### [address] Automated eosinophil countOr dered By: Chilo Santos on 05-11-2024 Eosinophils (Bld) [#/Vol] 0.0 10*3/uL Normal 0.0-0.45 [facility] Comment on above: Performed By: #### C DT #### [address] Automated monocyte %Ordered By: Chilo Santos on 05-11-2024 Monocytes/100 WBC (Bld) 5.9 % Normal . [facility] Comment on above: Performed By: #### C DT #### [address] Automated neutrophil %Ordere d By: Chilo Santos on 05-11-2024 Neutrophils/100 WBC (Bld) 90.6 % Normal . [facility] Comment on above: Performed By: #### C DT #### [address] Basic Metabolic Panelon 04-17 Anion gap [Moles/Vol] 12.0 mmol/L Normal 6.0-15.0 [facility] Comment on above: Performed By: #### C DT #### [address] Calcium [Mass/Vol] 8.4 mg/dL Low 8.6-10.3 [facility] Comment on above: Performed By: #### C DT #### [address] Chloride [Moles/Vol] 97 mmol/L Low 98-107 [facility] Comment on above: Performed By: #### C DT #### [address] CO2 [Moles/Vol] 29.5 mmol/L Normal 21.0-31.0 [facility] Comment on above: Performed By: #### C DT #### [address] Creatinine [Mass/Vol] 0.69 mg/dL Normal 0.60-1.20 [facility] Comment on above: Performed By: #### C DT #### [place] [address] [place] Creatinine Clr Calc Pharmacy 92.27 Normal [facility] Comment on above: Result Comment: PERF ORMED BY: [place] [address] PATHOLOGIST POSITION CLASSIFIER LIVAN GREEN M.D. Performed By: #### C DT #### [place] [address] [place] GFR/1.73 sq M.predicted MDRD (S/P/Bld) [Vol rate/Area] mL/min/{1.73_m2} Normal [facility] Comment on above: Performed By: #### C DT #### [address] Glucose [Mass/Vol] 129 mg/dL High 70-100 [facility] Comment on above: Result Comment: [place] Glucose Reference Range is dependent on time and content of last meal. Glucose of more than 200 mg/dL in a nonstressed, ambulatory subject supports the diagnosis of Diabetes Mellitus. ADA recommended reference range Performed By: #### C DT #### [address] Potassium [Moles/Vol] 3.5 mmol/L Normal 3.5-5.1 [facility] Comment on above: Performed By: #### C DT #### [place] [address] [place] Sodium [Moles/Vol] 135 mmol/L Low 136-145 [facility] Comment on above: Performed By: #### C DT #### [address] Urea nitrogen [Mass/Vol] 20 mg/dL Normal 7-25 [facility] Comment on above: Performed By: #### C DT #### [place] [id number] [place] Basophils Auto (Bld) [#/Vol] Ordered By: Chilo Santos on 05-11-2024 Basophils (Bld) [#/Vol] Automated basophil count 0.0-0.2 [facility] Basophils/100 WBC Auto (Bld) Ordered By: Chilo Santos on 05-11-2024 Basophils/100 WBC (Bld) Automated basophil % . [facility] Eosinophils Auto (Bld) [#/Vo l]Ordered By: Chilo Santos on 05-11-2024 Eosinophils (Bld) [#/Vol] Automated eosinophil count 0.0-0.45 [facility] Eosinophils/100 WBC Auto (Bl d)Ordered By: Chilo Santos on 05-11-2024 Eosinophils/100 WBC (Bld) Automated eosinophil % . [facility] Erythrocyte distribution wid th Auto (RBC) [Ratio]Ordered By: Chilo Santos on 05-11-2024 Erythrocyte distribution width (RBC) [Ratio] Erythrocyte distribution width [Ratio] by Automated count 11.9-15.3 [facility] Erythrocyte distribution wid th [Ratio] by Automated countOrdered By: Chilo Santos on 05-11-2024 Erythrocyte distribution width (RBC) [Ratio] 14.7 % Normal 11.9-15.3 [facility] Comment on above: Performed By: #### C DT #### [facility] [address] [place] [address] Erythrocyte morphology findi ng [Identifier] in BloodOrdered By: Chilo Santos on 05-11-2024 RBC morphology finding Nom (Bld) RBC morphology [facility] Erythrocytes [#/volume] in B lood by Automated countOrdered By: Chilo Santos on 05-11-2024 RBC (Bld) [#/Vol] 5.55 10*6/uL High 3.60-5.00 [facility] Comment on above: Performed By: #### C DT #### [facility] [address] [place] [address] Hematocrit Auto (Bld) [Volum e fraction]Ordered By: Chilo Santos on 05-11-2024 Hematocrit (Bld) [Volume fraction] Hematocrit [Volume Fraction] of Blood by Automated count 34.0-46.4 [facility] Hematocrit [Volume Fraction] of Blood by Automated countOrdered By: Chilo Santos on 05-11-2024 Hematocrit (Bld) [Volume fraction] 43.2 % Normal 34.0-46.4 [facility] Comment on above: Performed By: #### C DT #### [address] Hemoglobin [Mass/volume] in BloodOrdered By: Chilo Santos on 05-11-2024 Hemoglobin (Bld) [Mass/Vol] 14.0 g/dL Normal 11.8-15.4 [facility] Comment on above: Performed By: #### C DT #### [address] Hemoglobin (Bld) [Mass/Vol] Hemoglobin [Mass/volume] in Blood 11.8-15.4 [facility] Leukocytes [#/volume] correc steff for nucleated erythrocytes in Blood by Automated counOrdered By: Chilo Santos on 05-11-2024 WBC corrected for nucl RBC Auto (Bld) [#/Vol] 13.0 10*3/uL [facility] 3.8-11.6 [facility] WBC corrected for nucl RBC Auto (Bld) [#/Vol] Leukocytes [#/volume] corrected for nucleated erythrocytes in Blood by Automated coun High 3.8-11.6 [facility] Leukocytes [#/volume] in Blo od by Automated countOrdered By: Chilo Santos on 05-11-2024 WBC (Bld) [#/Vol] 13.0 10*3/uL [facility] 3.8-11.6 [facility] Comment on above: Performed By: #### C DT #### [place] [address] [place] Lymphocytes Auto (Bld) [#/Vo l]Ordered By: Chilo Santos on 05-11-2024 Lymphocytes (Bld) [#/Vol] Lymphocytes [#/volume] in Blood by Automated count Low 1.00-4.8 [facility] Lymphocytes [#/volume] in Bl ood by Automated countOrdered By: Chilo Santos on 05-11-2024 Lymphocytes (Bld) [#/Vol] 0.4 10*3/uL Low 1.00-4.8 [facility] Comment on above: Performed By: #### C DT #### [address] Lymphocytes/100 WBC Auto (Bl d)Ordered By: Chilo Santos on 05-11-2024 Lymphocytes/100 WBC (Bld) Lymphocytes/100 leukocytes in Blood by Automated count . [facility] Lymphocytes/100 leukocytes i n Blood by Automated countOrdered By: Chilo Santos on 05-11-2024 Lymphocytes/100 WBC (Bld) 3.4 % Normal . [facility] Comment on above: Performed By: #### C DT #### [address] MCH Auto (RBC) [Entitic mass ]Ordered By: Chilo Santos on 05-11-2024 MCH (RBC) [Entitic mass] MCH [Entitic mass] by Automated count 24.7-34.3 [facility] MCH [Entitic mass] by Automa steff countOrdered By: Chilo Santos on 05-11-2024 MCH (RBC) [Entitic mass] 25.3 pg Normal 24.7-34.3 [facility] Comment on above: Performed By: #### C DT #### [address] MCHC Auto (RBC) [Mass/Vol]Or dered By: Chilo Santos on 05-11-2024 MCHC (RBC) [Mass/Vol] 32.5 g/dL 32.0-35.0 [facility] MCHC (RBC) [Mass/Vol] MCHC [Mass/volume] by Automated count 32.0-35.0 [facility] MCV Auto (RBC) [Entitic vol] Ordered By: Chilo Santos on 05-11-2024 MCV (RBC) [Entitic vol] MCV [Entitic volume] by Automated count Low 80-100 [facility] MCV [Entitic volume] by Auto mated countOrdered By: Chilo Santos on 05-11-2024 MCV (RBC) [Entitic vol] 77.8 fL Low 80-100 [facility] Comment on above: Performed By: #### C DT #### [facility] [address] [place] [address] [place] Microcytes LM Ql (Bld)Ordere d By: Chilo Santos on 05-11-2024 Microcytes Ql (Bld) Moderate [facility] Microcytes Ql (Bld) Microcytes [Presence ] in Blood by Light microscopy [facility] Monocytes Auto (Bld) [#/Vol] Ordered By: Chilo Santos on 05-11-2024 Monocytes (Bld) [#/Vol] Automated blood monocyte count 0.0-0.8 [facility] Monocytes/100 WBC Auto (Bld) Ordered By: Chilo Santos on 05-11-2024 Monocytes/100 WBC (Bld) Automated monocyte % . [facility] Neutrophils Auto (Bld) [#/Vo l]Ordered By: Chilo Santos on 05-11-2024 Neutrophils (Bld) [#/Vol] Neutrophils [#/volume] in Blood by Automated count High 1.8-7.7 [facility] Neutrophils [#/volume] in Bl ood by Automated countOrdered By: Chilo Santos on 05-11-2024 Neutrophils (Bld) [#/Vol] 11.8 10*3/uL High 1.8-7.7 [facility] Comment on above: Performed By: #### C DT #### [facility] [address] [place] [address] [place] Neutrophils/100 WBC Auto (Bl d)Ordered By: Chilo Santos on 05-11-2024 Neutrophils/100 WBC (Bld) Automated neutrophil % . [facility] Nucleated erythrocytes [Pres ence] in Blood by Automated countOrdered By: Chilo Santos on 05-11-2024 Nucleated RBC Auto Ql (Bld) 0.0 /100{WBC} 0-0.5 [facility] Nucleated RBC Auto Ql (Bld) Nucleated erythrocytes [Presence] in Blood by Automated count 0-0.5 [facility] Ovalocyte detectionOrdered B y: Chilo Santos on 05-11-2024 Ovalocytes LM Ql (Bld) [facility] Ovalocytes [Presence] in Blo od by Light microscopyOrdered By: Chilo Santos on 05-11-2024 Ovalocytes LM Ql (Bld) Ovalocyte detection [facility] Platelet adequacy [Presence] in Blood by Light microscopyOrdered By: Chilo Santos on 05-11-2024 Platelets LM Ql (Bld) Normal Normal [facility] Platelets LM Ql (Bld) Platelet adequacy [Presence] in Blood by Light microscopy Normal [facility] Platelet mean volume Auto (B ld) [Entitic vol]Ordered By: Chilo Santos on 05-11-2024 Platelet mean volume (Bld) [Entitic vol] Platelet mean volume [Entitic volume] in Blood by Automated count 6.3-10.7 [facility] Platelet mean volume [Entiti c volume] in Blood by Automated countOrdered By: Chilo Santos on 05-11-2024 Platelet mean volume (Bld) [Entitic vol] 7.2 fL Normal 6.3-10.7 [facility] Comment on above: Performed By: #### C DT #### [address] Platelet morphology finding [Identifier] in BloodOrdered By: Chilo Santos on 05-11-2024 Platelet morphology finding Nom (Bld) Normal Normal [facility] Platelet morphology finding Nom (Bld) Platelet morphology finding [Identifier] in Blood Normal [facility] Platelets Auto (Bld) [#/Vol] Ordered By: Chilo Santos on 05-11-2024 Platelets (Bld) [#/Vol] Platelets [#/volume] in Blood by Automated count 150-450 [facility] Platelets [#/volume] in Bloo d by Automated countOrdered By: Chilo Santos on 05-11-2024 Platelets (Bld) [#/Vol] 162 10*3/uL Normal 150-450 [facility] Comment on above: Performed By: #### C DT #### [address] RBC Auto (Bld) [#/Vol]Ordere d By: Chilo Santos on 05-11-2024 RBC (Bld) [#/Vol] Erythrocytes [#/volu me] in Blood by Automated count High 3.60-5.00 [facility] RBC morphologyOrdered By: Daphney Santos on 05-11-2024 RBC morphology finding Nom (Bld) N/A [facility] Scan and CBCon 05-11-2024 Mean Corpuscular HGB Conc 32.5 g/dL Normal 32.0-35.0 [facility] Comment on above: Performed By: #### C DT #### [address] Microcytosis Moderate Normal [facility] Comment on above: Performed By: #### C DT #### [address] NRBC% 0.0 /100{WBC} Normal 0-0.5 [facility] Comment on above: Performed By: #### C DT #### [address] Ovalocytes Slight Normal [facility] Comment on above: Performed By: #### C DT #### [address] Platelet Estimate Normal Normal Normal [facility] Comment on above: Performed By: #### C DT #### [address] Platelet Morphology Normal Normal Normal [facility] Comment on above: Result Comment: PERF ORMED BY: [place] [address] PATHOLOGIST POSITION CLASSIFIER LIVAN GREEN M.D. Performed By: #### C DT #### [address] WBC Auto (Bld) [#/Vol]Ordere d By: Chilo Santos on 05-11-2024 WBC (Bld) [#/Vol] Leukocytes [#/volume ] in Blood by Automated count High 3.8-11.6 [facility] Basic Metabolic Panelon 04-17 Anion gap [Moles/Vol] 12.8 mmol/L Normal 6.0-15.0 [facility] Comment on above: Performed By: #### Ayaka G, BMP #### [place] [address] [place] Calcium [Mass/Vol] 8.6 mg/dL Normal 8.6-10.3 [facility] Comment on above: Performed By: #### Ayaka Mast, BMP #### [address] Chloride [Moles/Vol] 102 mmol/L Normal 98-107 [facility] Comment on above: Performed By: #### Ayaka Mats, BMP #### [address] CO2 [Moles/Vol] 25.2 mmol/L Normal 21.0-31.0 [facility] Comment on above: Performed By: #### Ayaka G, BMP #### [place] [address] [place] Creatinine [Mass/Vol] 0.74 mg/dL Normal 0.60-1.20 [facility] Comment on above: Performed By: #### Ayaka G, BMP #### [place] [id number] [place] Creatinine Clr Calc Pharmacy 85.51 Normal [facility] Comment on above: Performed By: #### Ayaka G, BMP #### [place] [id number] [place] GFR/1.73 sq M.predicted MDRD (S/P/Bld) [Vol rate/Area] mL/min/{1.73_m2} Normal [facility] Comment on above: Performed By: #### Ayaka G, BMP #### [address] Glucose [Mass/Vol] 137 mg/dL High 70-100 [facility] Comment on above: Result Comment: [facility] Glucose Reference Range is dependent on time and content of last meal. Glucose of more than 200 mg/dL in a nonstressed, ambulatory subject supports the diagnosis of Diabetes Mellitus. ADA recommended reference range Performed By: #### M G, BMP #### [address] Potassium [Moles/Vol] 4.0 mmol/L Normal 3.5-5.1 [facility] Comment on above: Performed By: #### M G, BMP #### [address] Sodium [Moles/Vol] 136 mmol/L Normal 136-145 [facility] Comment on above: Performed By: #### M G, BMP #### [address] Urea nitrogen [Mass/Vol] 23 mg/dL Normal 7-25 [facility] Comment on above: Performed By: #### M G, BMP #### [address] Magnesium [Mass/volume] in S luz maria or PlasmaOrdered By: Chilo Santos on 05-10-2024 Magnesium [Mass/Vol] 2.3 mg/dL Normal 1.9-2.7 [facility] Comment on above: Result Comment: PERF ORMED BY: [place] [address] PATHOLOGIST POSITION CLASSIFIER LIVAN GREEN M.D. Performed By: #### M G, BMP #### [facility] [address] [place] [address] [place] Magnesium [Mass/Vol] Magnesium [Mass/vol ume] in Serum or Plasma 1.9-2.7 [facility] Basic Metabolic Panelon 04-17 Anion gap [Moles/Vol] 12.3 mmol/L Normal 6.0-15.0 [facility] Comment on above: Performed By: #### C DT #### [address] Calcium [Mass/Vol] 8.2 mg/dL Low 8.6-10.3 [facility] Comment on above: Performed By: #### C DT #### [address] Chloride [Moles/Vol] 100 mmol/L Normal 98-107 [facility] Comment on above: Performed By: #### C DT #### [address] CO2 [Moles/Vol] 25.1 mmol/L Normal 21.0-31.0 [facility] Comment on above: Performed By: #### C DT #### [address] Creatinine [Mass/Vol] 0.68 mg/dL Normal 0.60-1.20 [facility] Comment on above: Performed By: #### C DT #### [address] Creatinine Clr Calc Pharmacy 93.31 Normal [facility] Comment on above: Result Comment: PERF ORMED BY: [place] [address] PATHOLOGIST POSITION CLASSIFIER LIVAN GREEN M.D. Performed By: #### C DT #### [address] GFR/1.73 sq M.predicted MDRD (S/P/Bld) [Vol rate/Area] mL/min/{1.73_m2} Normal [facility] Comment on above: Performed By: #### C DT #### [address] Glucose [Mass/Vol] 140 mg/dL Significant change up 70-100 [facility] Comment on above: Result Comment: [facility] Glucose Reference Range is dependent on time and content of last meal. Glucose of more than 200 mg/dL in a nonstressed, ambulatory subject supports the diagnosis of Diabetes Mellitus. ADA recommended reference range Performed By: #### C DT #### [address] Potassium [Moles/Vol] 3.4 mmol/L Low 3.5-5.1 [facility] Comment on above: Performed By: #### C DT #### [address] Sodium [Moles/Vol] 134 mmol/L Low 136-145 [facility] Comment on above: Performed By: #### C DT #### [address] Urea nitrogen [Mass/Vol] 18 mg/dL Normal 7-25 [facility] Comment on above: Performed By: #### C DT #### [address] Complete Blood Count Auto Di ffon 05-09-2024 Basophils (Bld) [#/Vol] 0.0 10*3/uL Normal 0.0-0.2 [facility] Comment on above: Result Comment: PERF ORMED BY: [place] [address] PATHOLOGIST POSITION CLASSIFIER LIVAN GREEN M.D. Performed By: #### C DT #### [address] Basophils/100 WBC (Bld) 0.0 % Normal . [facility] Comment on above: Performed By: #### C DT #### [address] Eosinophils (Bld) [#/Vol] 0.0 10*3/uL Normal 0.0-0.45 [facility] Comment on above: Performed By: #### C DT #### [place] [address] [place] Eosinophils/100 WBC (Bld) 0.0 % Normal . [facility] Comment on above: Performed By: #### C DT #### [address] Erythrocyte distribution width (RBC) [Ratio] 14.9 % Normal 11.9-15.3 [facility] Comment on above: Performed By: #### C DT #### [address] Hematocrit (Bld) [Volume fraction] 40.2 % Normal 34.0-46.4 [facility] Comment on above: Performed By: #### C DT #### [address] Hemoglobin (Bld) [Mass/Vol] 13.0 g/dL Normal 11.8-15.4 [facility] Comment on above: Performed By: #### C DT #### [address] Lymphocytes (Bld) [#/Vol] 0.4 10*3/uL Low 1.00-4.8 [facility] Comment on above: Performed By: #### C DT #### [address] Lymphocytes/100 WBC (Bld) 3.1 % Normal . [facility] Comment on above: Performed By: #### C DT #### [address] MCH (RBC) [Entitic mass] 25.5 pg Normal 24.7-34.3 [facility] Comment on above: Performed By: #### C DT #### [address] MCV (RBC) [Entitic vol] 78.7 fL Low 80-100 [facility] Comment on above: Performed By: #### C DT #### [address] Mean Corpuscular HGB Conc 32.4 g/dL Normal 32.0-35.0 [facility] Comment on above: Performed By: #### C DT #### [address] Monocytes (Bld) [#/Vol] 0.6 10*3/uL Normal 0.0-0.8 [facility] Comment on above: Performed By: #### C DT #### [address] Monocytes/100 WBC (Bld) 4.7 % Normal . [facility] Comment on above: Performed By: #### C DT #### [address] Neutrophils (Bld) [#/Vol] 11.7 10*3/uL High 1.8-7.7 [facility] Comment on above: Performed By: #### C DT #### [address] Neutrophils/100 WBC (Bld) 92.2 % Normal . [facility] Comment on above: Performed By: #### C DT #### [address] NRBC% 0.0 /100{WBC} Normal 0-0.5 [facility] Comment on above: Performed By: #### C DT #### [address] Platelet mean volume (Bld) [Entitic vol] 7.4 fL Normal 6.3-10.7 [facility] Comment on above: Performed By: #### C DT #### [address] Platelets (Bld) [#/Vol] 185 10*3/uL Normal 150-450 [facility] Comment on above: Performed By: #### C DT #### [address] RBC (Bld) [#/Vol] 5.11 10*6/uL High 3.60-5.00 [facility] Comment on above: Performed By: #### C DT #### [address] WBC (Bld) [#/Vol] 12.7 10*3/uL High 3.8-11.6 [facility] Comment on above: Performed By: #### C DT #### [address] Basic Metabolic Panelon 09-2 Anion gap [Moles/Vol] 15.2 mmol/L High 6.0-15.0 [facility] Comment on above: Performed By: #### T SH3, LIPID #### [address] Calcium [Mass/Vol] 9.0 mg/dL Normal 8.6-10.3 [facility] Comment on above: Performed By: #### T SH3, LIPID #### [address] Chloride [Moles/Vol] 97 mmol/L Low 98-107 [facility] Comment on above: Performed By: #### T SH3, LIPID #### [address] CO2 [Moles/Vol] 28.1 mmol/L Normal 21.0-31.0 [facility] Comment on above: Performed By: #### T SH3, LIPID #### [address] Creatinine [Mass/Vol] 0.86 mg/dL Normal 0.60-1.20 [facility] Comment on above: Performed By: #### T SH3, LIPID #### [place] [address] [place] Creatinine Clr Calc Pharmacy 73.78 Normal [facility] Comment on above: Result Comment: PERF ORMED BY: [place] [address] PATHOLOGIST POSITION CLASSIFIER LIVAN GREEN M.D. Performed By: #### T SH3, LIPID #### [place] [address] [place] GFR/1.73 sq M.predicted MDRD (S/P/Bld) [Vol rate/Area] mL/min/{1.73_m2} Normal [facility] Comment on above: Performed By: #### T SH3, LIPID #### [place] [address] [place] Glucose [Mass/Vol] 259 mg/dL Significant change up 70-100 [facility] Comment on above: Result Comment: [facility] Glucose Reference Range is dependent on time and content of last meal. Glucose of more than 200 mg/dL in a nonstressed, ambulatory subject supports the diagnosis of Diabetes Mellitus. ADA recommended reference range Performed By: #### T SH3, LIPID #### [facility] [address] [place] [address] [place] Potassium [Moles/Vol] 3.3 mmol/L Low 3.5-5.1 [facility] Comment on above: Performed By: #### T SH3, LIPID #### [facility] [address] [place] [address] [place] Sodium [Moles/Vol] 137 mmol/L Normal 136-145 [facility] Comment on above: Performed By: #### T SH3, LIPID #### [facility] [address] Urea nitrogen [Mass/Vol] 14 mg/dL Normal 7-25 [facility] Comment on above: Performed By: #### T SH3, LIPID #### [facility] [address] Clostridioides difficile tox in B tcdB gene [Presence] in Stool by JONI with probe deteOrdered By: Letitia Cruz on 05-08-2024 C. difficile toxin B tcdB gene JONI+probe Ql (Stl) Negative Negative [facility] Comment on above: Testing performed by RT-PCR C. difficile toxin B tcdB gene JONI+probe Ql (Stl) Clostridioides difficile toxin B tcdB gene [Presence] in Stool by JONI with probe dete Negative [facility] Comment on above: Testing performed by RT-PCR Clostridium Difficileon 04-17 Clostridium Difficile Negative Normal Negative [facility] Comment on above: Order Comment: > or = to 3 loose/watery stools in the last 24 HRS? Y Is patient on promotility agents or tube feeding? N Result Comment: Test ing performed by RT-PCR PERFORMED BY: [place] [address] PATHOLOGIST POSITION CLASSIFIER LIVAN GREEN M.D. Performed By: #### C DT #### [facility] [address] [place] [address] [place] MRSA Cultureon 05-08-2024 MRSA Culture No MRSA Isolated 2 D ays PERFORMED BY: [facility] [address] [place] [address] PATHOLOGIST POSITION CLASSIFIER LIVAN GREEN M.D. Normal [facility] Comment on above: Performed By: #### C DT #### [facility] [address] [place] [address] Serum or plasma trough vanco mycin levelOrdered By: Mira Travonskiene on 05-08-2024 Vancomycin trough [Mass/Vol] 10.2 ug/mL 10.0-20.0 [facility] Comment on above: Last dose: - Vancomycin [Mass/volume] in Serum or Plasma --peakOrdered By: Mira Semaskiene on 05-08-2024 Vancomycin peak [Mass/Vol] 49.3 ug/mL High 20.0-40.0 [facility] Comment on above: Last dose: - Vancomycin peak [Mass/Vol] Vancomycin [Mass/volume] in Serum or Plasma --peak High 20.0-40.0 [facility] Comment on above: Last dose: - Vancomycin [Mass/volume] in Serum or Plasma --troughOrdered By: Mira Semaskiene on 05-08-2024 Vancomycin trough [Mass/Vol] Serum or plasma trough vancomycin level 10.0-20.0 [facility] Comment on above: Last dose: - Vancomycin,Peakon 05-08-2024 Vancomycin,Peak 49.3 ug/mL High 20.0-40.0 [facility] Comment on above: Order Comment: Comme nt ?DRAW 1 HOUR AFTER INFUSION COMPLETES Date of last dose?: [id number] Time of last dose?: 1129 Result Comment: Last dose: - PERFORMED BY: [facility] [address] [place] [address] PATHOLOGIST POSITION CLASSIFIER LIVAN GREEN M.D. Performed By: #### V ANCP ####[facility] [id number] [place] [id number] [facility] Vancomycin,Troughon 05-08-20 24 Vancomycin,Trough 10.2 ug/mL Normal 10.0-20.0 [facility] Comment on above: Order Comment: Time of next dose? 2329 Date of last dose?: 20240508 Time of last dose?: 1129 Result Comment: Last dose: - PERFORMED BY: [place] [address] PATHOLOGIST POSITION CLASSIFIER LIVAN GREEN M.D. Performed By: #### V ANCT ####[place] [id number] [facility] Wound methicillin resistant Staphylococcus aureus (MRSA) cultureOrdered By: Chilo Santos on 05-08-2024 MRSA isol Org specific cx Ql (Unsp spec) Wound methicillin resistant Staphylococcus aureus (MRSA) culture [facility] MRSA isol Org specific cx Ql (Unsp spec) No MRSA Isolated 2 Days [facility] BioFire Not Detectedon 05-07 BioFire Not Detected Not detected Normal Not Detecte [facility] Comment on above: Result Comment: This is a duplicate RP2.1 COVID (PCR) result to be used for statistical tracking purpose only. PERFORMED BY: [place] [address] PATHOLOGIST POSITION CLASSIFIER LIVAN GREEN M.D. Performed By: #### B IOFIRECOVNOTDE, RESP PANEL UPP. ####[place] [id number] [facility] COVID-19 Detected/Not Detect edOrdered By: Chilo Santos on 05-07-2024 SARS-CoV-2 (COVID-19) RNA JONI+non-probe Ql (Nph) Not detected Not Detecte [facility] Comment on above: This is a duplicate RP2.1 COVID (PCR) result to be used for statistical tracking purpose only. Complete Blood Count Auto Di ffon 05-07-2024 Basophils (Bld) [#/Vol] 0.0 10*3/uL Normal 0.0-0.2 [facility] Comment on above: Result Comment: PERF ORMED BY: [place] [address] PATHOLOGIST POSITION CLASSIFIER LIVAN GREEN M.D. Performed By: #### T SH3, LIPID #### [address] Basophils/100 WBC (Bld) 0.3 % Normal . [facility] Comment on above: Performed By: #### T SH3, LIPID #### [place] [address] [place] Eosinophils (Bld) [#/Vol] 0.0 10*3/uL Normal 0.0-0.45 [facility] Comment on above: Performed By: #### T SH3, LIPID #### [address] Eosinophils/100 WBC (Bld) 0.0 % Normal . [facility] Comment on above: Performed By: #### T SH3, LIPID #### [address] Erythrocyte distribution width (RBC) [Ratio] 14.7 % Normal 11.9-15.3 [facility] Comment on above: Performed By: #### T SH3, LIPID #### [address] Hematocrit (Bld) [Volume fraction] 39.0 % Normal 34.0-46.4 [facility] Comment on above: Performed By: #### T SH3, LIPID #### [place] [address] [place] Hemoglobin (Bld) [Mass/Vol] 13.0 g/dL Normal 11.8-15.4 [facility] Comment on above: Performed By: #### T SH3, LIPID #### [place] [address] [place] Lymphocytes (Bld) [#/Vol] 0.5 10*3/uL Low 1.00-4.8 [facility] Comment on above: Performed By: #### T SH3, LIPID #### [place] [address] [place] Lymphocytes/100 WBC (Bld) 5.1 % Normal . [facility] Comment on above: Performed By: #### T SH3, LIPID #### [address] MCH (RBC) [Entitic mass] 25.9 pg Normal 24.7-34.3 [facility] Comment on above: Performed By: #### T SH3, LIPID #### [address] MCV (RBC) [Entitic vol] 78.0 fL Low 80-100 [facility] Comment on above: Performed By: #### T SH3, LIPID #### [address] Mean Corpuscular HGB Conc 33.2 g/dL Normal 32.0-35.0 [facility] Comment on above: Performed By: #### T SH3, LIPID #### [address] Monocytes (Bld) [#/Vol] 0.2 10*3/uL Normal 0.0-0.8 [facility] Comment on above: Performed By: #### T SH3, LIPID #### [address] Monocytes/100 WBC (Bld) 1.8 % Normal . [facility] Comment on above: Performed By: #### T SH3, LIPID #### [address] Neutrophils (Bld) [#/Vol] 9.3 10*3/uL High 1.8-7.7 [facility] Comment on above: Performed By: #### T SH3, LIPID #### [address] Neutrophils/100 WBC (Bld) 92.8 % Normal . [facility] Comment on above: Performed By: #### T SH3, LIPID #### [address] NRBC% 0.1 /100{WBC} Normal 0-0.5 [facility] Comment on above: Performed By: #### T SH3, LIPID #### [facility] [address] Platelet mean volume (Bld) [Entitic vol] 7.4 fL Normal 6.3-10.7 [facility] Comment on above: Performed By: #### T SH3, LIPID #### [address] Platelets (Bld) [#/Vol] 184 10*3/uL Normal 150-450 [facility] Comment on above: Performed By: #### T SH3, LIPID #### [address] RBC (Bld) [#/Vol] 5.00 10*6/uL Normal 3.60-5.00 [facility] Comment on above: Performed By: #### T SH3, LIPID #### [address] WBC (Bld) [#/Vol] 10.0 10*3/uL Normal 3.8-11.6 [facility] Comment on above: Performed By: #### T SH3, LIPID #### [address] Comprehensive Metabolic Pane ceferino 05-07-2024 Albumin [Mass/Vol] 4.1 g/dL Normal 3.5-5.7 [facility] Comment on above: Performed By: #### T SH3, LIPID #### [address] Albumin/Globulin [Mass ratio] 1.8 {ratio} Normal [facility] Comment on above: Performed By: #### T SH3, LIPID #### [address] ALP [Catalytic activity/Vol] 49 U/L Normal 34-104 [facility] Comment on above: Performed By: #### T SH3, LIPID #### [address] ALT [Catalytic activity/Vol] 6 U/L Low 7-52 [facility] Comment on above: Performed By: #### T SH3, LIPID #### [address] Anion gap [Moles/Vol] 15.1 mmol/L High 6.0-15.0 [facility] Comment on above: Performed By: #### T SH3, LIPID #### [facility] [address] [place] [address] AST [Catalytic activity/Vol] 9 U/L Low 13-39 [facility] Comment on above: Performed By: #### T SH3, LIPID #### [address] Bilirubin [Mass/Vol] 0.6 mg/dL Normal 0.3-1.0 [facility] Comment on above: Performed By: #### T SH3, LIPID #### [address] Calcium [Mass/Vol] 8.3 mg/dL Low 8.6-10.3 [facility] Comment on above: Performed By: #### T SH3, LIPID #### [address] Chloride [Moles/Vol] 101 mmol/L Normal 98-107 [facility] Comment on above: Performed By: #### T SH3, LIPID #### [address] CO2 [Moles/Vol] 25.8 mmol/L Normal 21.0-31.0 [facility] Comment on above: Performed By: #### T SH3, LIPID #### [address] Creatinine [Mass/Vol] 0.67 mg/dL Normal 0.60-1.20 [facility] Comment on above: Performed By: #### T SH3, LIPID #### [address] Creatinine Clr Calc Pharmacy 95.79 Normal [facility] Comment on above: Result Comment: PERF ORMED BY: [place] [address] PATHOLOGIST POSITION CLASSIFIER LIVAN GREEN M.D. Performed By: #### T SH3, LIPID #### [place] [address] [place] GFR/1.73 sq M.predicted MDRD (S/P/Bld) [Vol rate/Area] mL/min/{1.73_m2} Normal [facility] Comment on above: Performed By: #### T SH3, LIPID #### [facility] [address] [place] [address] [place] Globulin (S) [Mass/Vol] 2.3 g/dL Normal [facility] Comment on above: Performed By: #### T SH3, LIPID #### [address] Glucose [Mass/Vol] 117 mg/dL High 70-100 [facility] Comment on above: Result Comment: [facility][note 3] Glucose Reference Range is dependent on time and content of last meal. Glucose of more than 200 mg/dL in a nonstressed, ambulatory subject supports the diagnosis of Diabetes Mellitus. ADA recommended reference range Performed By: #### T SH3, LIPID #### [place] [address] [place] Potassium [Moles/Vol] 3.9 mmol/L Normal 3.5-5.1 [facility] Comment on above: Performed By: #### T SH3, LIPID #### [place] [address] [place] Protein [Mass/Vol] 6.4 g/dL Normal 6.4-8.9 [facility] Comment on above: Performed By: #### T SH3, LIPID #### [place] [address] [place] Sodium [Moles/Vol] 138 mmol/L Normal 136-145 [facility] Comment on above: Performed By: #### T SH3, LIPID #### [place] [address] [place] Urea nitrogen [Mass/Vol] 8 mg/dL Normal 7-25 [facility] Comment on above: Performed By: #### T SH3, LIPID #### [facility] [address] Respiratory (Upper) Panel, P CRon 05-07-2024 Respiratory (Upper) Panel, PCR Adenovirus Not detected Bordetella parapertussis Not detected Chlamydia pneumoniae Not detected Coronavirus 229E Not detected Coronavirus HKU1 Not detected Coronavirus NL63 Not detected Coronavirus OC43 Not detected Influenza A Not detected Influenza B Not detected Human Metapneumovirus Not detected Mycoplasma pneumoniae Not detected Parainfluenza Virus 1 Not detected Parainfluenza Virus 2 Not detected Parainfluenza Virus 3 Not detected Parainfluenza Virus 4 Not detected Bordetella pertussis-ptxP Not detected Human Rhino/Enterovirus Not detected Resp. Syncytial Virus Not detected COVID-19 Detected/Not Detected Not detected Blank Space FLUA TEST INCLUDES Influenza A tests for the following clinically FLUA TEST INCLUDES significant subtypes: FLUA TEST INCLUDES - Influenza A FLUA TEST INCLUDES - Influenza A H1 FLUA TEST INCLUDES - Influenza A H1 2009 FLUA TEST INCLUDES - Influenza A H3 Blank Space PERFORMED BY: [facility] [address] [facility] [place] [address] PATHOLOGIST POSITION CLASSIFIER LIVAN GREEN M.D. Normal [facility] Comment on above: Performed By: #### B IOFIRECOVNOTDE, RESP PANEL UPP. ####[facility] [id number] Respiratory pathogens DNA an d RNA panel - Nasopharynx by JONI with non-probe detectionOrdered By: Chilo Santos on 05-07-2024 Respiratory pathogens DNA and RNA panel JONI+non-probe (Nph) Respiratory pathogens DNA and RNA panel - Nasopharynx by JONI with non-probe detection [facility] Respiratory pathogens DNA and RNA panel JONI+non-probe (Nph) [facility] BNP ser/plasOrdered By: Mira Sun on 05-06-2024 Natriuretic peptide B (Bld) [Mass/Vol] 40.0 pg/mL Normal 5-100 [facility] Comment on above: Result Comment: PERF ORMED BY: [place] [address] PATHOLOGIST POSITION CLASSIFIER LIVAN GREEN M.D. Performed By: #### C DT #### [address] Basic Metabolic Panelon 04-17 Anion gap [Moles/Vol] 15.4 mmol/L High 6.0-15.0 [facility] Comment on above: Performed By: #### C DT #### [address] Calcium [Mass/Vol] 8.9 mg/dL Normal 8.6-10.3 [facility] Comment on above: Performed By: #### C DT #### [address] Chloride [Moles/Vol] 101 mmol/L Normal 98-107 [facility] Comment on above: Performed By: #### C DT #### [address] CO2 [Moles/Vol] 26.6 mmol/L Normal 21.0-31.0 [facility] Comment on above: Performed By: #### C DT #### [address] Creatinine [Mass/Vol] 0.87 mg/dL Normal 0.60-1.20 [facility] Comment on above: Performed By: #### C DT #### [address] Creatinine Clr Calc Pharmacy 73.77 Normal [facility] Comment on above: Performed By: #### C DT #### [place] [address] [place] GFR/1.73 sq M.predicted MDRD (S/P/Bld) [Vol rate/Area] mL/min/{1.73_m2} Normal [facility] Comment on above: Performed By: #### C DT #### [facility] [address] Glucose [Mass/Vol] 149 mg/dL High 70-100 [facility] Comment on above: Result Comment: [facility][note 3] Glucose Reference Range is dependent on time and content of last meal. Glucose of more than 200 mg/dL in a nonstressed, ambulatory subject supports the diagnosis of Diabetes Mellitus. ADA recommended reference range Performed By: #### C DT #### [facility] [address] Potassium [Moles/Vol] 4.0 mmol/L Normal 3.5-5.1 [facility] Comment on above: Performed By: #### C DT #### [facility] [address] [place] [address] [place] Sodium [Moles/Vol] 139 mmol/L Normal 136-145 [facility] Comment on above: Performed By: #### C DT #### [facility] [address] [place] [address] [place] Urea nitrogen [Mass/Vol] 9 mg/dL Normal 7-25 [facility] Comment on above: Performed By: #### C DT #### [address] ECG 12 lead ECGon 05-06-2024 ECG 12 lead ECG [facility] [place] [address] Electrocardiograph Report Signed Patient: Flash Irving MR#: [id number] 6 : 1975 Acct:[id number] Age/Sex: 49 / F ADM Date: 05/06/24 Loc: Room: [address] [place] [address] Type: ADM IN Attending Dr: Letitia Cruz MD Ordering Provider: Mira Sun MD Date of Service: 05/06/24 ECG/ECG 12 lead ECG: abn Copies to: Test Reason : Blood Pressure : */* mmHG Vent. Rate : 96 BPM Atrial Rate : 96 BPM P-R Int : 152 ms QRS Dur : 74 ms QT Int : 376 ms P-R-T Axes : 43 136 25 degrees QTcB Int : 475 ms Normal sinus rhythm Possible Left atrial enlargement Possible Right ventricular hypertrophy Abnormal ECG When compared with ECG of 12-Oct-2023 03:33, No significant change was found Confirmed by MEGAN TURNER [facility], PORSHA ([id number]) on 05/07/2024 3:47:11 PM Referred By: Electronically Signed By: PORSHA GUZMAN MD [facility] Transcribed By: MUS Signed By Porsha Guzman MD, [facility] 05/07/24 6477 Normal [facility] Gram Stainon 05-06-2024 Microscopic observation Gram stain Nom (Unsp spec) Gram Stain Result 2+ Gram Positive Cocci in Clusters 1+ Gram Positive Bacilli 1+ Gram Negative Bacilli 3+ Epithelial Cells Sputum screening indicates excessive oral contamination and mandates specimen rejection for bacterial culture. @Called LILY GayleP @at 0033 on 05/07/24 @by Sanjuanita Deluna to request new sample. @ PLEASE ADD MARKER [email or web address] PERFORMED BY: [place] [address] PATHOLOGIST POSITION CLASSIFIER LIVAN GREEN M.D. Normal [facility] Comment on above: Performed By: #### C DT #### [facility] [address] [place] [address] Magnesiumon 05-06-2024 Magnesium [Mass/Vol] 1.7 mg/dL Low 1.9-2.7 [facility] Comment on above: Result Comment: PERF ORMED BY: [place] [address] PATHOLOGIST POSITION CLASSIFIER LIVAN GREEN M.D. Performed By: #### T SH3, LIPID #### [facility] [address] [place] [address] Natriuretic peptide B [Mass/ Vol]Ordered By: Mira Sun on 05-06-2024 Natriuretic peptide B (Bld) [Mass/Vol] BNP ser/plas 5-100 [facility] Troponin I High Sensitivityo n 05-06-2024 Troponin I High Sensitivity 4.9 pg/mL Normal 0.0-15.0 [facility] Comment on above: Result Comment: PERF ORMED BY: [facility] [address] [facility] [place] [address] PATHOLOGIST POSITION CLASSIFIER LIVAN GREEN M.D. Performed By: #### T SH3, LIPID #### [facility] [address] Troponin I.cardiac [Mass/vol ume] in Serum or Plasma by Detection limit <= 0.01 ng/Ordered By: Mira Sun on 05-06-2024 Troponin I.cardiac DL <= 0.01 ng/mL [Mass/Vol] 4.9 pg/mL 0.0-15.0 [facility] Troponin I.cardiac DL <= 0.01 ng/mL [Mass/Vol] Troponin I.cardiac [Mass/volume] in Serum or Plasma by Detection limit <= 0.01 ng/ 0.0-15.0 [facility] CNPNon 04-28-2024 CNPN Telephone (OPHTBE) FLASH IRVING ([id number]) 1975 F Date Time Provider Department 04/28/24 SHUBHAM KNOX During your visit today, we recorded the following information about you: Belkis Richard 04/28/2024 2:59 PM Signed Fax medical records from [facility] office of Dr Jackson Borrero. Placed at front sight attacher for review. Allergies As of Date: 04/28/2024 (No Known Allergies) Date Reviewed: 07/07/2019 Reviewed by: Ileana Ovalle - Fully Assessed Reason for Visit: Received Outside Medical Records [[id number]] Prescriptions as of 04/28/2024 - ergocalciferol 50,000 unit capsule (VITAMIN D2, DRISDOL) Take 1 capsule by mouth two times a week. (FOR EXAMPLE ONE CAPSULE ON WEDNESDAY AND ONE ON WEDNESDAY) FOR A TOTAL OF 8 WEEKS, WITH A MEAL - acetaminophen (TYLENOL) 325 mg tablet Take 2 tablets by mouth every 4 hours as needed. - Cholecalciferol, Vitamin D3, 2,000 unit cap 2000 international units once daily with dinner - mycophenolate Mofetil (CELLCEPT) 500 mg tablet Take 2 tablets by mouth twice daily. - Norethin-Eth Estrad Triphasic (ORTHO-NOVUM , ,) 0.5/0.75/1 mg- 35 mcg per tablet Take 1 tablet by mouth once daily. - ESOMEPRAZOLE MAGNESIUM (NEXIUM ORAL) Take by mouth. - MULTIVITAMIN TABLET Take one(1) tablet daily. 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] 09/16/2017 On skilled nursing mycophenolate mofetil therapy [Z79*09/16/2017 Raynaud's phenomenon without gangrene [I73.00] 09/16/2017 Recurrent spontaneous pneumothorax [J93.83] 04/24/2019 NSIP (nonspecific interstitial pneumonia) (HCC)* ILD (interstitial lung disease) (HCC) [J84.9] Family history of MS (multiple sclerosis) [Z82.* Former smoker [Z87.891] GERD (gastroesophageal reflux disease) [K21.9] Raynaud's phenomenon [I73.00] Encounter Status:Closed by BELKIS RICHARD on 04/28/24 Normal [facility] Alanine aminotransferase [En zymatic activity/volume] in Serum or PlasmaOrdered By: Adelita Bhagat on 03-10-2024 ALT [Catalytic activity/Vol] 7 U/L 7 [facility] Albumin [Mass/volume] in Ser um or Plasma by Bromocresol green (BCG) dye binding methoOrdered By: Adelita Bhagat on 03-10-2024 Albumin BCG dye [Mass/Vol] 4.2 g/dL 3.5-5.7 [facility] Alkaline phosphatase [Enzyma tic activity/volume] in Serum or PlasmaOrdered By: Adelita Bhagat on 03-10-2024 ALP [Catalytic activity/Vol] 43 U/L 34-104 [facility] Aspartate aminotransferase [ Enzymatic activity/volume] in Serum or PlasmaOrdered By: Adelita Bhagat on 03-10-2024 AST [Catalytic activity/Vol] 9 U/L Low 13-39 [facility] Basophils Auto (Bld) [#/Vol] Ordered By: Adelita Bhagat on 03-10-2024 Basophils (Bld) [#/Vol] 0.0 10*3/uL 0.0-0.2 [facility] Basophils/100 WBC Auto (Bld) Ordered By: Adelita Bhagat on 03-10-2024 Basophils/100 WBC (Bld) 0.5 % . [facility] Bilirubin.direct [Mass/volum e] in Serum or PlasmaOrdered By: Adelita Bhagat on 03-10-2024 Bilirubin.direct [Mass/Vol] 0.10 mg/dL 0.03-0.18 [facility] Bilirubin.total [Mass/volume ] in Serum or PlasmaOrdered By: Adelita Bhagat on 03-10-2024 Bilirubin [Mass/Vol] 0.6 mg/dL 0.3-1.0 [facility] Creatinine [Mass/volume] in Serum or PlasmaOrdered By: Adelita Bhagat on 03-10-2024 Creatinine [Mass/Vol] 0.75 mg/dL 0.60-1.20 [facility] Eosinophils Auto (Bld) [#/Vo l]Ordered By: Adelita Bhagat on 03-10-2024 Eosinophils (Bld) [#/Vol] 0.0 10*3/uL 0.0-0.45 [facility] Eosinophils/100 WBC Auto (Bl d)Ordered By: Adelita Bhagat on 03-10-2024 Eosinophils/100 WBC (Bld) 0.3 % . [facility] Erythrocyte distribution wid th Auto (RBC) [Ratio]Ordered By: Adelita Bhagat on 03-10-2024 Erythrocyte distribution width (RBC) [Ratio] 16.1 % High 11.9-15.3 [facility] Globulin Calc (S) [Mass/Vol] Ordered By: Adelita Bhagat on 03-10-2024 Globulin (S) [Mass/Vol] 2.3 g/dL [facility] Hematocrit Auto (Bld) [Volum e fraction]Ordered By: Adelita Bhagat on 03-10-2024 Hematocrit (Bld) [Volume fraction] 40.6 % 34.0-46.4 [facility] Hemoglobin [Mass/volume] in BloodOrdered By: Adelita Bhagat on 03-10-2024 Hemoglobin (Bld) [Mass/Vol] 13.2 g/dL 11.8-15.4 [facility] Leukocytes [#/volume] correc steff for nucleated erythrocytes in Blood by Automated counOrdered By: Adelita Bhagat on 03-10-2024 WBC corrected for nucl RBC Auto (Bld) [#/Vol] 9.0 10*3/uL 3.8-11.6 [facility] Lymphocytes Auto (Bld) [#/Vo l]Ordered By: Adelita Bhagat on 03-10-2024 Lymphocytes (Bld) [#/Vol] 0.6 10*3/uL Low 1.00-4.8 [facility] Lymphocytes/100 WBC Auto (Bl d)Ordered By: Adelita Bhagat on 03-10-2024 Lymphocytes/100 WBC (Bld) 7.2 % . [facility] MCH Auto (RBC) [Entitic mass ]Ordered By: Adelita Bhagat on 03-10-2024 MCH (RBC) [Entitic mass] 25.5 pg 24.7-34.3 [facility] MCHC Auto (RBC) [Mass/Vol]Or dered By: Adelita Bhagat on 03-10-2024 MCHC (RBC) [Mass/Vol] 32.5 g/dL 32.0-35.0 [facility] MCV Auto (RBC) [Entitic vol] Ordered By: Adelita Bhagat on 03-10-2024 MCV (RBC) [Entitic vol] 78.5 fL Low 80-100 [facility] Monocytes Auto (Bld) [#/Vol] Ordered By: Adelita Bhagat on 03-10-2024 Monocytes (Bld) [#/Vol] 0.2 10*3/uL 0.0-0.8 [facility] Monocytes/100 WBC Auto (Bld) Ordered By: Adelita Bhagat on 03-10-2024 Monocytes/100 WBC (Bld) 2.3 % . [facility] Neutrophils Auto (Bld) [#/Vo l]Ordered By: Adelita Bhagat on 03-10-2024 Neutrophils (Bld) [#/Vol] 8.1 10*3/uL High 1.8-7.7 [facility] Neutrophils/100 WBC Auto (Bl d)Ordered By: Adelita Bhagat on 03-10-2024 Neutrophils/100 WBC (Bld) 89.7 % . [facility] No Panel InformationOrdered By: Adelita Bhagat on 03-10-2024 Estimated GFR (CKD-EPI) > 60.0 mL/Min [facility] Creatinine Clearance (Chem N/A [facility] Nucleated erythrocytes [Pres ence] in Blood by Automated countOrdered By: Adelita Bhagat on 03-10-2024 Nucleated RBC Auto Ql (Bld) 0.1 /100{WBC} 0-0.5 [facility] Platelet mean volume Auto (B ld) [Entitic vol]Ordered By: Adelita Bhagat on 03-10-2024 Platelet mean volume (Bld) [Entitic vol] 7.5 fL 6.3-10.7 [facility] Platelets Auto (Bld) [#/Vol] Ordered By: Adelita Bhagat on 03-10-2024 Platelets (Bld) [#/Vol] 208 10*3/uL 150-450 [facility] Protein [Mass/volume] in Ser um or PlasmaOrdered By: Adelita Bhagat on 03-10-2024 Protein [Mass/Vol] 6.5 g/dL 6.4-8.9 [facility] RBC Auto (Bld) [#/Vol]Ordere d By: Adelita Bhagat on 03-10-2024 RBC (Bld) [#/Vol] 5.18 10*6/uL High 3.60-5.00 [facility] Serum or plasma albumin/glob ulin mass ratioOrdered By: Adelita Bhagat on 03-10-2024 Albumin/Globulin [Mass ratio] 1.8 {ratio} [facility] Serum or plasma non-glucuron idated bilirubin measurement (mass/volume)Ordered By: Adelita Bhagat on 03-10-2024 Bilirubin.indirect [Mass/Vol] 0.5 mg/dL [facility] WBC Auto (Bld) [#/Vol]Ordere d By: Adelita Bhagat on 03-10-2024 WBC (Bld) [#/Vol] 9.0 10*3/uL 3.8-11.6 [facility] Alanine aminotransferase [En zymatic activity/volume] in Serum or PlasmaOrdered By: Jabari Celeste on 11-26-2023 ALT [Catalytic activity/Vol] 8 U/L 7-52 [facility] Albumin [Mass/volume] in Ser um or Plasma by Bromocresol green (BCG) dye binding methoOrdered By: Jabari Celeste on 11-26-2023 Albumin BCG dye [Mass/Vol] 4.0 g/dL 3.5-5.7 [facility] Alkaline phosphatase [Enzyma tic activity/volume] in Serum or PlasmaOrdered By: Jabari Celeste on 11-26-2023 ALP [Catalytic activity/Vol] 39 U/L 34-104 [facility] Aspartate aminotransferase [ Enzymatic activity/volume] in Serum or PlasmaOrdered By: Jabari Celeste on 11-26-2023 AST [Catalytic activity/Vol] 10 U/L 13-39 [facility] Basophils Auto (Bld) [#/Vol] Ordered By: Jabari Celeste on 11-26-2023 Basophils (Bld) [#/Vol] 0.1 10*3/uL 0.0-0.2 [facility] Basophils/100 WBC Auto (Bld) Ordered By: Jabari Celeste on 11-26-2023 Basophils/100 WBC (Bld) 1.1 % . [facility] Bilirubin.total [Mass/volume ] in Serum or PlasmaOrdered By: Jabari Celeste on 11-26-2023 Bilirubin [Mass/Vol] 0.6 mg/dL 0.3-1.0 [facility] Calcium [Mass/volume] in Ser um or PlasmaOrdered By: Jabari Celeste on 11-26-2023 Calcium [Mass/Vol] 9.0 mg/dL 8.6-10.3 [facility] Carbon dioxide, total [Moles /volume] in Serum or PlasmaOrdered By: Jabari Celeste on 11-26-2023 CO2 [Moles/Vol] 29.9 mmol/L 21.0-31.0 [facility] Chloride [Moles/volume] in S luz maria or PlasmaOrdered By: Jabari Celeste on 11-26-2023 Chloride [Moles/Vol] 107 mmol/L 98-107 [facility] Cholesterol [Mass/volume] in Serum or PlasmaOrdered By: Jabari Celeste on 11-26-2023 Cholesterol [Mass/Vol] 190 mg/dL 140-200 [facility] Comment on above: Chol less than 200 m g/dl low riskChol 201-239 mg/dl borderline riskChol 240 mg/dl and greater high risk Cholesterol in LDL Calc [Mas s/Vol]Ordered By: Jabari Celeste on 11-26-2023 Cholesterol in LDL [Mass/Vol] 118 mg/dL 0-100 [facility] Comment on above: LDL ATP III CLASSIFI CATIONLDL less than 100 mg/dL OptimalLDL 100-129 mg/dL Near or above optimalLDL 130-159 mg/dL Borderline highLDL 160-189 mg/dL HighLDL greater than 189 mg/dL Very high Cholesterol in VLDL Calc [Ma ss/Vol]Ordered By: Jabari Celeste on 11-26-2023 Cholesterol in VLDL [Mass/Vol] 17 mg/dL [facility] Creatinine [Mass/volume] in Serum or PlasmaOrdered By: Jabari Celeste on 11-26-2023 Creatinine [Mass/Vol] 0.70 mg/dL 0.60-1.20 [facility] Creatinine [Mass/volume] in UrineOrdered By: Jabari Celeste on 11-26-2023 Creatinine (U) [Mass/Vol] mg/dL [facility] Comment on above: No reference range e stablished Eosinophils Auto (Bld) [#/Vo l]Ordered By: Jabari Celeste on 11-26-2023 Eosinophils (Bld) [#/Vol] 0.1 10*3/uL 0.0-0.45 [facility] Eosinophils/100 WBC Auto (Bl d)Ordered By: Jabari Celeste on 11-26-2023 Eosinophils/100 WBC (Bld) 1.1 % . [facility] Erythrocyte distribution wid th Auto (RBC) [Ratio]Ordered By: Jabari Celeste on 11-26-2023 Erythrocyte distribution width (RBC) [Ratio] 14.7 % 11.9-15.3 [facility] Globulin Calc (S) [Mass/Vol] Ordered By: Jabari Celeste on 11-26-2023 Globulin (S) [Mass/Vol] 2.3 g/dL [facility] Glucose [Mass/volume] in Ser um or PlasmaOrdered By: Jabari Celeste on 11-26-2023 Glucose [Mass/Vol] 74 mg/dL 70-100 [facility] Comment on above: ADA recommended refe rence rangeRandom Glucose Reference Range is dependent on time and content of last meal. Glucose of more than 200 mg/dL in a nonstressed, ambulatory subject supports the diagnosis of Diabetes Mellitus. Hematocrit Auto (Bld) [Volum e fraction]Ordered By: Jabari Celeste on 11-26-2023 Hematocrit (Bld) [Volume fraction] 40.7 % 34.0-46.4 [facility] Hemoglobin [Mass/volume] in BloodOrdered By: Jabari Celeste on 11-26-2023 Hemoglobin (Bld) [Mass/Vol] 12.9 g/dL 11.8-15.4 [facility] Leukocytes [#/volume] correc steff for nucleated erythrocytes in Blood by Automated counOrdered By: Jabari Celeste on 11-26-2023 WBC corrected for nucl RBC Auto (Bld) [#/Vol] 9.0 10*3/uL 3.8-11.6 [facility] Lymphocytes Auto (Bld) [#/Vo l]Ordered By: Jabari Celeste on 11-26-2023 Lymphocytes (Bld) [#/Vol] 2.0 10*3/uL 1.00-4.8 [facility] Lymphocytes/100 WBC Auto (Bl d)Ordered By: Jabari Celeste on 11-26-2023 Lymphocytes/100 WBC (Bld) 22.7 % . [facility] MCH Auto (RBC) [Entitic mass ]Ordered By: Jabari Celeste on 11-26-2023 MCH (RBC) [Entitic mass] 25.5 pg 24.7-34.3 [facility] MCHC Auto (RBC) [Mass/Vol]Or dered By: Jabari Celeste on 11-26-2023 MCHC (RBC) [Mass/Vol] 31.8 g/dL 32.0-35.0 [facility] MCV Auto (RBC) [Entitic vol] Ordered By: Jabari Celeste on 11-26-2023 MCV (RBC) [Entitic vol] 80.3 fL 80-100 [facility] Microalbumin [Mass/volume] i n UrineOrdered By: Jabari Celeste on 11-26-2023 Albumin DL <= 20 mg/L (U) [Mass/Vol] 3.8 mg/dL 0.0-1.8 [facility] Monocytes Auto (Bld) [#/Vol] Ordered By: Jabari Celeste on 11-26-2023 Monocytes (Bld) [#/Vol] 0.6 10*3/uL 0.0-0.8 [facility] Monocytes/100 WBC Auto (Bld) Ordered By: Jabari Celeste on 11-26-2023 Monocytes/100 WBC (Bld) 6.8 % . [facility] Neutrophils Auto (Bld) [#/Vo l]Ordered By: Jabari Celeste on 11-26-2023 Neutrophils (Bld) [#/Vol] 6.1 10*3/uL 1.8-7.7 [facility] Neutrophils/100 WBC Auto (Bl d)Ordered By: Jabari Celeste on 11-26-2023 Neutrophils/100 WBC (Bld) 68.3 % . [facility] No Panel InformationOrdered By: Jabari Celeste on 11-26-2023 Estimated GFR (CKD-EPI) > 60.0 mL/Min [facility] Creatinine Clearance (Chem N/A [facility] Nucleated erythrocytes [Pres ence] in Blood by Automated countOrdered By: Jabari Celeste on 11-26-2023 Nucleated RBC Auto Ql (Bld) 0.1 /100{WBC} 0-0.5 [facility] Platelet mean volume Auto (B ld) [Entitic vol]Ordered By: Jabari Celeste on 11-26-2023 Platelet mean volume (Bld) [Entitic vol] 7.3 fL 6.3-10.7 [facility] Platelets Auto (Bld) [#/Vol] Ordered By: Jabari Celeste on 11-26-2023 Platelets (Bld) [#/Vol] 186 10*3/uL 150-450 [facility] Potassium [Moles/volume] in Serum or PlasmaOrdered By: Jabari Celeste on 11-26-2023 Potassium [Moles/Vol] 3.6 mmol/L 3.5-5.1 [facility] Protein [Mass/volume] in Ser um or PlasmaOrdered By: Jabari Celeste on 11-26-2023 Protein [Mass/Vol] 6.3 g/dL 6.4-8.9 [facility] RBC Auto (Bld) [#/Vol]Ordere d By: Jabari Celeste on 11-26-2023 RBC (Bld) [#/Vol] 5.06 10*6/uL 3.60-5.00 [facility] Serum or plasma albumin/glob ulin mass ratioOrdered By: Jabari Celeste on 11-26-2023 Albumin/Globulin [Mass ratio] 1.7 {ratio} [facility] Serum or plasma anion gap de terminationOrdered By: Jabari Celeste on 11-26-2023 Anion gap [Moles/Vol] 6.7 mmol/L 6.0-15.0 [facility] Serum or plasma high density lipoprotein (HDL) cholesterol measurementOrdered By: Jabari Celeste on 11-26-2023 Cholesterol in HDL [Mass/Vol] 54 mg/dL 23-92 [facility] Comment on above: HDL CHOL ATP-III CLA SSIFICATION Cardiovascular RiskHDL > or equal to 60 mg/dL LOWHDL < 40 mg/dL HIGH Serum or plasma total choles terol/high density lipoprotein (HDL) cholesterol mass ratOrdered By: Jabari Celeste on 11-26-2023 Cholesterol.total/Chol esterol in HDL [Mass ratio] 3.5 {ratio} <5.0 [facility] Sodium [Moles/volume] in Ser um or PlasmaOrdered By: Jabari Celeste on 11-26-2023 Sodium [Moles/Vol] 140 mmol/L 136-145 [facility] Thyrotropin [Units/volume] i n Serum or PlasmaOrdered By: Jabari Celeste on 11-26-2023 TSH Qn 2.02 m[IU]/L 0.45-5.33 [facility] Triglyceride [Mass/volume] i n Serum or PlasmaOrdered By: Jabari Celeste on 11-26-2023 Triglyceride [Mass/Vol] 89 mg/dL 0-149 [facility] Comment on above: TRIG ATP III CLASSIF ICATIONTRIG less than 150 mg/dL NormalTRIG 150-199 mg/dL Borderline highTRIG 200-500 mg/dL High TRIG greater than 500 mg/dL Very highStandard traceable to the Center for Disease Conrtrol and Prevention (CDC) test method. Urea nitrogen [Mass/volume] in Serum or PlasmaOrdered By: Jabari Celeste on 11-26-2023 Urea nitrogen [Mass/Vol] 7 mg/dL 7-25 [facility] Urine microalbumin/creatinin e mass ratioOrdered By: Jabari Celeste on 11-26-2023 Albumin/Creatinine DL <= 20 mg/L (U) [Mass ratio] TNP [facility] Comment on above: Test not performed WBC Auto (Bld) [#/Vol]Ordere d By: Jabari Celeste on 11-26-2023 WBC (Bld) [#/Vol] 9.0 10*3/uL 3.8-11.6 [facility] Calcium [Mass/volume] in Ser um or PlasmaOrdered By: Jazmin Snyder on 10-14-2023 Calcium [Mass/Vol] 8.4 mg/dL 8.6-10.3 [facility] Carbon dioxide, total [Moles /volume] in Serum or PlasmaOrdered By: Jazmin Snyder on 10-14-2023 CO2 [Moles/Vol] 28.3 mmol/L 21.0-31.0 [facility] Chloride [Moles/volume] in S luz maria or PlasmaOrdered By: Jazmin Snyder on 10-14-2023 Chloride [Moles/Vol] 105 mmol/L 98-107 [facility] Creatinine [Mass/volume] in Serum or PlasmaOrdered By: Jazmin Snyder on 10-14-2023 Creatinine [Mass/Vol] 0.55 mg/dL 0.60-1.20 [facility] Glucose [Mass/volume] in Ser um or PlasmaOrdered By: Jazmin Snyder on 10-14-2023 Glucose [Mass/Vol] 96 mg/dL 70-100 [facility] Comment on above: ADA recommended refe rence rangeRandom Glucose Reference Range is dependent on time and content of last meal. Glucose of more than 200 mg/dL in a nonstressed, ambulatory subject supports the diagnosis of Diabetes Mellitus. Magnesium [Mass/volume] in S luz maria or PlasmaOrdered By: Jazmin Snyder on 10-14-2023 Magnesium [Mass/Vol] 1.9 mg/dL 1.9-2.7 [facility] No Panel InformationOrdered By: Jazmin Snyder on 10-14-2023 Estimated GFR (CKD-EPI) > 60.0 mL/Min [facility] Creatinine Clearance (Chem 116.79 [facility] Potassium [Moles/volume] in Serum or PlasmaOrdered By: Jazmin Snyder on 10-14-2023 Potassium [Moles/Vol] 4.6 mmol/L 3.5-5.1 [facility] Serum or plasma anion gap de terminationOrdered By: Jazmin Snyder on 10-14-2023 Anion gap [Moles/Vol] 9.3 mmol/L 6.0-15.0 [facility] Serum or plasma trough vanco mycin levelOrdered By: Rohith Avina on 10-14-2023 Vancomycin trough [Mass/Vol] 9.0 ug/mL 10.0-20.0 [facility] Comment on above: Last dose: - Sodium [Moles/volume] in Ser um or PlasmaOrdered By: Jazmin Snyder on 10-14-2023 Sodium [Moles/Vol] 138 mmol/L 136-145 [facility] Urea nitrogen [Mass/volume] in Serum or PlasmaOrdered By: Jazmin Snyder on 10-14-2023 Urea nitrogen [Mass/Vol] 9 mg/dL 7-25 [facility] Vancomycin [Mass/volume] in Serum or Plasma --peakOrdered By: Rohith Avina on 10-14-2023 Vancomycin peak [Mass/Vol] 25.7 ug/mL 20.0-40.0 [facility] Comment on above: Last dose: - Alanine aminotransferase [En zymatic activity/volume] in Serum or PlasmaOrdered By: Jazmin Snyder on 10-13-2023 ALT [Catalytic activity/Vol] 13 U/L 7-52 [facility] Albumin [Mass/volume] in Ser um or Plasma by Bromocresol green (BCG) dye binding methoOrdered By: Jazmin Snyder on 10-13-2023 Albumin BCG dye [Mass/Vol] 3.7 g/dL 3.5-5.7 [facility] Alkaline phosphatase [Enzyma tic activity/volume] in Serum or PlasmaOrdered By: Jazmin Snyder on 10-13-2023 ALP [Catalytic activity/Vol] 41 U/L 34-104 [facility] Aspartate aminotransferase [ Enzymatic activity/volume] in Serum or PlasmaOrdered By: Jazmin Snyder on 10-13-2023 AST [Catalytic activity/Vol] 12 U/L 13-39 [facility] Bilirubin.direct [Mass/volum e] in Serum or PlasmaOrdered By: Jazmin Snyder on 10-13-2023 Bilirubin.direct [Mass/Vol] 0.10 mg/dL 0.03-0.18 [facility] Bilirubin.total [Mass/volume ] in Serum or PlasmaOrdered By: Jazmin Snyder on 10-13-2023 Bilirubin [Mass/Vol] 0.6 mg/dL 0.3-1.0 [facility] Globulin Calc (S) [Mass/Vol] Ordered By: Jazmin Snyder on 10-13-2023 Globulin (S) [Mass/Vol] 2.6 g/dL [facility] Protein [Mass/volume] in Ser um or PlasmaOrdered By: Jazmin Snyder on 10-13-2023 Protein [Mass/Vol] 6.3 g/dL 6.4-8.9 [facility] Serum or plasma albumin/glob ulin mass ratioOrdered By: Jazmin Snyder on 10-13-2023 Albumin/Globulin [Mass ratio] 1.4 {ratio} [facility] Serum or plasma non-glucuron idated bilirubin measurement (mass/volume)Ordered By: Jazmin Snyder on 10-13-2023 Bilirubin.indirect [Mass/Vol] 0.5 mg/dL [facility] Activated partial thrombopla stin time (aPTT) in platelet poor plasma by coagulation aOrdered By: Dariel Hicks on 10-12-2023 aPTT Coag (PPP) [Time] 27.1 s 25.1-36.5 [facility] Comment on above: A hematocrit value g reater than 55% may lead to inaccurate results in coagulation testing. Patients having hematocrit values >55% require a special collection tube for coagulation studies. Please contact the laboratory at [phone] for redraw instructions. Basophils Auto (Bld) [#/Vol] Ordered By: Dariel Hicks on 10-12-2023 Basophils (Bld) [#/Vol] 0.1 10*3/uL 0.0-0.2 [facility] Basophils/100 WBC Auto (Bld) Ordered By: Dariel Hicks on 10-12-2023 Basophils/100 WBC (Bld) 0.8 % . [facility] COVID CepheidOrdered By: Renny Hicks on 10-12-2023 SARS-CoV-2 (COVID-19) Ab IA Ql Negative Negative [facility] Comment on above: This is a duplicate Cepheid Xpert Xpress CoV-2/Flu/RSV Plus RNA by RT-PCR result to be used for statistical tracking purpose only. SARS-CoV-2 (COVID-19) RNA JONI+probe Ql (Unsp spec) [facility] Creatine kinase [Enzymatic a ctivity/volume] in Serum or PlasmaOrdered By: Dariel Hicks on 10-12-2023 CK [Catalytic activity/Vol] 21 U/L 30-223 [facility] Eosinophils Auto (Bld) [#/Vo l]Ordered By: Dariel Hicks on 10-12-2023 Eosinophils (Bld) [#/Vol] 0.1 10*3/uL 0.0-0.45 [facility] Eosinophils/100 WBC Auto (Bl d)Ordered By: Dariel Hicks on 10-12-2023 Eosinophils/100 WBC (Bld) 1.5 % . [facility] Erythrocyte distribution wid th Auto (RBC) [Ratio]Ordered By: Dariel Hicks on 10-12-2023 Erythrocyte distribution width (RBC) [Ratio] 15.1 % 11.9-15.3 [facility] Fibrin D-dimer [Presence] in Platelet poor plasma by Latex agglutinationOrdered By: Dariel Hicks on 10-12-2023 Fibrin D-dimer LA Ql (PPP) < 200 ng/mL 0-243 [facility] Comment on above: The reference range for D-dimer is <243 ng/mL D-dimer units.D-dimer results must be used in conjunction with a clinicalpretest probability (PTP) assessment model for deep veinthrombosis (DVT) and pulmonary embolism (PE). Results <230ng/mL d-dimer units can be used as a negative predictor inpatients with low or moderate probability for DVT/PE.Results above the exclusion threshold of 230 ng/ml D-dimerunits for DVT/PE may indicate the need for furtherdiagnostic testing.D-Dimer can be increased in hospitalized patients due toco-morbid conditions.A hematocrit value greater than 55% may lead to inaccurate results in coagulation testing. Patients having hematocrit values >55% require a special collection tube for coagulation studies. Please contact the laboratory at [phone] for redraw instructions. Hematocrit Auto (Bld) [Volum e fraction]Ordered By: Dariel Hicks on 10-12-2023 Hematocrit (Bld) [Volume fraction] 37.3 % 34.0-46.4 [facility] Hemoglobin [Mass/volume] in BloodOrdered By: Dariel Hicks on 10-12-2023 Hemoglobin (Bld) [Mass/Vol] 12.3 g/dL 11.8-15.4 [facility] INR in Platelet poor plasma by Coagulation assayOrdered By: Dariel Hicks on 10-12-2023 INR Coag (PPP) [Relative time] 1.0 {INR} [facility] Comment on above: INR Therapeutic Rang e A) Pre- and Peroperative OAT started two weeks before surgery. NOT HIP SURGERY: 1.5 - 2.5 HIP SURGERY: 2 - 3B) Primary and secondary prevention of venous THROMBOSIS: 2 - 3C) Active venous thrombosis, pulmonary embolismand prevention of recurrent venous thrombosis: 2 - 3D) Prevention of arterial thromboembolismincluding patients with mechanical heart valves: 3 - 4.5 Leukocytes [#/volume] correc steff for nucleated erythrocytes in Blood by Automated counOrdered By: Dariel Hicks on 10-12-2023 WBC corrected for nucl RBC Auto (Bld) [#/Vol] 7.3 10*3/uL 3.8-11.6 [facility] Lymphocytes Auto (Bld) [#/Vo l]Ordered By: Dariel Hicks on 10-12-2023 Lymphocytes (Bld) [#/Vol] 1.4 10*3/uL 1.00-4.8 [facility] Lymphocytes/100 WBC Auto (Bl d)Ordered By: Dariel Hicks on 10-12-2023 Lymphocytes/100 WBC (Bld) 19.4 % . [facility] MCH Auto (RBC) [Entitic mass ]Ordered By: Dariel Hicks on 10-12-2023 MCH (RBC) [Entitic mass] 26.3 pg 24.7-34.3 [facility] MCHC Auto (RBC) [Mass/Vol]Or dered By: Dariel Hicks on 10-12-2023 MCHC (RBC) [Mass/Vol] 33.1 g/dL 32.0-35.0 [facility] MCV Auto (RBC) [Entitic vol] Ordered By: Dariel Hicks on 10-12-2023 MCV (RBC) [Entitic vol] 79.6 fL 80-100 [facility] Monocyte distribution width [Entitic volume] in Blood by AutomatedOrdered By: Dariel Hicks on 10-12-2023 Monocyte distribution width Auto (Bld) [Entitic vol] 16.81 % 0.00-20.00 [facility] Monocytes Auto (Bld) [#/Vol] Ordered By: Dariel Hicks on 10-12-2023 Monocytes (Bld) [#/Vol] 0.6 10*3/uL 0.0-0.8 [facility] Monocytes/100 WBC Auto (Bld) Ordered By: Dariel Hicks on 10-12-2023 Monocytes/100 WBC (Bld) 8.1 % . [facility] Natriuretic peptide B [Mass/ Vol]Ordered By: Dariel Hicsk on 10-12-2023 Natriuretic peptide B (Bld) [Mass/Vol] 18.0 pg/mL 5-100 [facility] Neutrophils Auto (Bld) [#/Vo l]Ordered By: Dariel Hicks on 10-12-2023 Neutrophils (Bld) [#/Vol] 5.2 10*3/uL 1.8-7.7 [facility] Neutrophils/100 WBC Auto (Bl d)Ordered By: Dariel Hicks on 10-12-2023 Neutrophils/100 WBC (Bld) 70.2 % . [facility] Nucleated erythrocytes [Pres ence] in Blood by Automated countOrdered By: Dariel Hicks on 10-12-2023 Nucleated RBC Auto Ql (Bld) 0.0 /100{WBC} 0-0.5 [facility] Platelet mean volume Auto (B ld) [Entitic vol]Ordered By: Dariel Hicks on 10-12-2023 Platelet mean volume (Bld) [Entitic vol] 7.2 fL 6.3-10.7 [facility] Platelets Auto (Bld) [#/Vol] Ordered By: Dariel Hicks on 10-12-2023 Platelets (Bld) [#/Vol] 178 10*3/uL 150-450 [facility] Prothrombin time (PT)Ordered By: Dariel Hicks on 10-12-2023 PT Coag (PPP) [Time] 11.2 s 9.0-12.9 [facility] Comment on above: A hematocrit value g reater than 55% may lead to inaccurate results in coagulation testing. Patients having hematocrit values >55% require a special collection tube for coagulation studies. Please contact the laboratory at [phone] for redraw instructions. RBC Auto (Bld) [#/Vol]Ordere d By: Dariel Hicks on 10-12-2023 RBC (Bld) [#/Vol] 4.68 10*6/uL 3.60-5.00 [facility] Troponin I.cardiac [Mass/vol ume] in Serum or Plasma by Detection limit <= 0.01 ng/Ordered By: Dariel Hicks on 10-12-2023 Troponin I.cardiac DL <= 0.01 ng/mL [Mass/Vol] 5.2 pg/mL 0.0-15.0 [facility] WBC Auto (Bld) [#/Vol]Ordere d By: Dariel Hicks on 10-12-2023 WBC (Bld) [#/Vol] 7.3 10*3/uL 3.8-11.6 [facility] Alanine aminotransferase [En zymatic activity/volume] in Serum or PlasmaOrdered By: NON STAFF on 09-10-2023 ALT [Catalytic activity/Vol] 7 U/L 7-52 [facility] Albumin [Mass/volume] in Ser um or Plasma by Bromocresol green (BCG) dye binding methoOrdered By: NON STAFF on 09-10-2023 Albumin BCG dye [Mass/Vol] 4.0 g/dL 3.5-5.7 [facility] Alkaline phosphatase [Enzyma tic activity/volume] in Serum or PlasmaOrdered By: NON STAFF on 09-10-2023 ALP [Catalytic activity/Vol] 37 U/L 34-104 [facility] Aspartate aminotransferase [ Enzymatic activity/volume] in Serum or PlasmaOrdered By: NON STAFF on 09-10-2023 AST [Catalytic activity/Vol] 10 U/L 13-39 [facility] Basophils Auto (Bld) [#/Vol] Ordered By: NON STAFF on 09-10-2023 Basophils (Bld) [#/Vol] 0.1 10*3/uL 0.0-0.2 [facility] Basophils/100 WBC Auto (Bld) Ordered By: NON STAFF on 09-10-2023 Basophils/100 WBC (Bld) 0.6 % . [facility] Bilirubin.direct [Mass/volum e] in Serum or PlasmaOrdered By: NON STAFF on 09-10-2023 Bilirubin.direct [Mass/Vol] 0.20 mg/dL 0.03-0.18 [facility] Bilirubin.total [Mass/volume ] in Serum or PlasmaOrdered By: NON STAFF on 09-10-2023 Bilirubin [Mass/Vol] 0.8 mg/dL 0.3-1.0 [facility] Creatinine [Mass/volume] in Serum or PlasmaOrdered By: NON STAFF on 09-10-2023 Creatinine [Mass/Vol] 0.70 mg/dL 0.60-1.20 [facility] Eosinophils Auto (Bld) [#/Vo l]Ordered By: NON STAFF on 09-10-2023 Eosinophils (Bld) [#/Vol] 0.1 10*3/uL 0.0-0.45 [facility] Eosinophils/100 WBC Auto (Bl d)Ordered By: NON STAFF on 09-10-2023 Eosinophils/100 WBC (Bld) 0.9 % . [facility] Erythrocyte distribution wid th Auto (RBC) [Ratio]Ordered By: NON STAFF on 09-10-2023 Erythrocyte distribution width (RBC) [Ratio] 14.6 % 11.9-15.3 [facility] Globulin Calc (S) [Mass/Vol] Ordered By: NON STAFF on 09-10-2023 Globulin (S) [Mass/Vol] 2.2 g/dL [facility] Hematocrit Auto (Bld) [Volum e fraction]Ordered By: NON STAFF on 09-10-2023 Hematocrit (Bld) [Volume fraction] 40.3 % 34.0-46.4 [facility] Hemoglobin [Mass/volume] in BloodOrdered By: NON STAFF on 09-10-2023 Hemoglobin (Bld) [Mass/Vol] 13.3 g/dL 11.8-15.4 [facility] Leukocytes [#/volume] correc steff for nucleated erythrocytes in Blood by Automated counOrdered By: NON STAFF on 09-10-2023 WBC corrected for nucl RBC Auto (Bld) [#/Vol] 9.6 10*3/uL 3.8-11.6 [facility] Lymphocytes Auto (Bld) [#/Vo l]Ordered By: NON STAFF on 09-10-2023 Lymphocytes (Bld) [#/Vol] 2.4 10*3/uL 1.00-4.8 [facility] Lymphocytes/100 WBC Auto (Bl d)Ordered By: NON STAFF on 09-10-2023 Lymphocytes/100 WBC (Bld) 24.6 % . [facility] MCH Auto (RBC) [Entitic mass ]Ordered By: NON STAFF on 09-10-2023 MCH (RBC) [Entitic mass] 26.5 pg 24.7-34.3 [facility] MCHC Auto (RBC) [Mass/Vol]Or dered By: NON STAFF on 09-10-2023 MCHC (RBC) [Mass/Vol] 33.1 g/dL 32.0-35.0 [facility] MCV Auto (RBC) [Entitic vol] Ordered By: NON STAFF on 09-10-2023 MCV (RBC) [Entitic vol] 80.1 fL 80-100 [facility] Monocytes Auto (Bld) [#/Vol] Ordered By: NON STAFF on 09-10-2023 Monocytes (Bld) [#/Vol] 0.6 10*3/uL 0.0-0.8 [facility] Monocytes/100 WBC Auto (Bld) Ordered By: NON STAFF on 09-10-2023 Monocytes/100 WBC (Bld) 6.8 % . [facility] Neutrophils Auto (Bld) [#/Vo l]Ordered By: NON STAFF on 09-10-2023 Neutrophils (Bld) [#/Vol] 6.4 10*3/uL 1.8-7.7 [facility] Neutrophils/100 WBC Auto (Bl d)Ordered By: NON STAFF on 09-10-2023 Neutrophils/100 WBC (Bld) 67.1 % . [facility] No Panel InformationOrdered By: NON STAFF on 09-10-2023 Estimated GFR (CKD-EPI) > 60.0 mL/Min [facility] Creatinine Clearance (Chem N/A [facility] Nucleated erythrocytes [Pres ence] in Blood by Automated countOrdered By: NON STAFF on 09-10-2023 Nucleated RBC Auto Ql (Bld) 0.1 /100{WBC} 0-0.5 [facility] Platelet mean volume Auto (B ld) [Entitic vol]Ordered By: NON STAFF on 09-10-2023 Platelet mean volume (Bld) [Entitic vol] 7.1 fL 6.3-10.7 [facility] Platelets Auto (Bld) [#/Vol] Ordered By: NON STAFF on 09-10-2023 Platelets (Bld) [#/Vol] 163 10*3/uL 150-450 [facility] Protein [Mass/volume] in Ser um or PlasmaOrdered By: NON STAFF on 09-10-2023 Protein [Mass/Vol] 6.2 g/dL 6.4-8.9 [facility] RBC Auto (Bld) [#/Vol]Ordere d By: NON STAFF on 09-10-2023 RBC (Bld) [#/Vol] 5.03 10*6/uL 3.60-5.00 [facility] Serum or plasma albumin/glob ulin mass ratioOrdered By: NON STAFF on 09-10-2023 Albumin/Globulin [Mass ratio] 1.8 {ratio} [facility] Serum or plasma non-glucuron idated bilirubin measurement (mass/volume)Ordered By: NON STAFF on 09-10-2023 Bilirubin.indirect [Mass/Vol] 0.6 mg/dL [facility] WBC Auto (Bld) [#/Vol]Ordere d By: NON STAFF on 09-10-2023 WBC (Bld) [#/Vol] 9.6 10*3/uL 3.8-11.6 [facility] Potassium [Moles/volume] in Serum or PlasmaOrdered By: Jabari Celeste on 10-19-2022 Potassium [Moles/Vol] 3.9 mmol/L 3.5-5.1 [facility] Albumin [Mass/volume] in Ser um or PlasmaOrdered By: Jabari Celeste on 10-14-2022 Albumin [Mass/Vol] 3.7 g/dL 3.2-5.5 [facility] Alkaline phosphatase [Enzyma tic activity/volume] in Serum or PlasmaOrdered By: Jabari Celeste on 10-14-2022 ALP [Catalytic activity/Vol] 42 U/L 32-92 [facility] Aspartate aminotransferase [ Enzymatic activity/volume] in Serum or PlasmaOrdered By: Jabari Celeste on 10-14-2022 AST [Catalytic activity/Vol] 13 U/L 10-42 [facility] Basophils Auto (Bld) [#/Vol] Ordered By: Jabari Celeste on 10-14-2022 Basophils (Bld) [#/Vol] 0.0 10*3/uL 0.0-0.2 [facility] Basophils/100 WBC Auto (Bld) Ordered By: Jabari Celeste on 10-14-2022 Basophils/100 WBC (Bld) 0.5 % . [facility] Bilirubin.total [Mass/volume ] in Serum or PlasmaOrdered By: Jabari Celeste on 10-14-2022 Bilirubin [Mass/Vol] 0.6 mg/dL 0.3-1.2 [facility] Calcium [Mass/volume] in Ser um or PlasmaOrdered By: Jabari Celeste on 10-14-2022 Calcium [Mass/Vol] 8.6 mg/dL 8.2-10.2 [facility] Carbon dioxide, total [Moles /volume] in Serum or PlasmaOrdered By: Jabari Celeste on 10-14-2022 CO2 [Moles/Vol] 28.0 mmol/L 22.0-30.0 [facility] Chloride [Moles/volume] in S luz maria or PlasmaOrdered By: Jabari Celeste on 10-14-2022 Chloride [Moles/Vol] 103 mmol/L 95-114 [facility] Cholesterol [Mass/volume] in Serum or PlasmaOrdered By: Jabari Celeste on 10-14-2022 Cholesterol [Mass/Vol] 197 mg/dL 140-200 [facility] Comment on above: Chol less than 200 m g/dl low riskChol 201-239 mg/dl borderline riskChol 240 mg/dl and greater high risk Cholesterol in LDL Calc [Mas s/Vol]Ordered By: Jabari Celeste on 10-14-2022 Cholesterol in LDL [Mass/Vol] 115 mg/dL 0-100 [facility] Comment on above: LDL ATP III CLASSIFI CATIONLDL less than 100 mg/dL OptimalLDL 100-129 mg/dL Near or above optimalLDL 130-159 mg/dL Borderline highLDL 160-189 mg/dL HighLDL greater than 189 mg/dL Very high Cholesterol in VLDL Calc [Ma ss/Vol]Ordered By: Jabari Celeste on 10-14-2022 Cholesterol in VLDL [Mass/Vol] 21 mg/dL [facility] Creatinine and Glomerular fi ltration rate.predicted panel (S/P/Bld)Ordered By: Jabari Celeste on 10-14-2022 Creatinine [Mass/Vol] 0.71 mg/dL 0.44-1.03 [facility] Eosinophils Auto (Bld) [#/Vo l]Ordered By: Jabari Celeste on 10-14-2022 Eosinophils (Bld) [#/Vol] 0.2 10*3/uL 0.0-0.45 [facility] Eosinophils/100 WBC Auto (Bl d)Ordered By: Jabari Celeste on 10-14-2022 Eosinophils/100 WBC (Bld) 2.1 % . [facility] Erythrocyte distribution wid th Auto (RBC) [Ratio]Ordered By: Jabari Celeste on 10-14-2022 Erythrocyte distribution width (RBC) [Ratio] 15.5 % 11.9-15.3 [facility] Estimated glomerular filtrat ion rate (GFR) non- AmericanOrdered By: Jabari Celeste on 10-14-2022 GFR/1.73 sq M.predicted among non-blacks MDRD (S/P/Bld) [Vol rate/Area] > 60 mL/Min [facility] Globulin Calc (S) [Mass/Vol] Ordered By: Jabari Celeste on 10-14-2022 Globulin (S) [Mass/Vol] 2.6 g/dL [facility] Glucose [Mass/volume] in Ser um or PlasmaOrdered By: Jabari Celeste on 10-14-2022 Glucose [Mass/Vol] 74 mg/dL 70-100 [facility] Comment on above: ADA recommended refe rence rangeRandom Glucose Reference Range is dependent on time and content of last meal. Glucose of more than 200 mg/dL in a nonstressed, ambulatory subject supports the diagnosis of Diabetes Mellitus. Hematocrit Auto (Bld) [Volum e fraction]Ordered By: Jabari Celeste on 10-14-2022 Hematocrit (Bld) [Volume fraction] 42.0 % 34.0-46.4 [facility] Hemoglobin [Mass/volume] in BloodOrdered By: Jabari Celeste on 10-14-2022 Hemoglobin (Bld) [Mass/Vol] 13.6 g/dL 11.8-15.4 [facility] Leukocytes [#/volume] correc steff for nucleated erythrocytes in Blood by Automated counOrdered By: Jabari Celeste on 10-14-2022 WBC corrected for nucl RBC Auto (Bld) [#/Vol] 9.0 10*3/uL 3.8-11.6 [facility] Lymphocytes Auto (Bld) [#/Vo l]Ordered By: Jabari Celeste on 10-14-2022 Lymphocytes (Bld) [#/Vol] 2.0 10*3/uL 1.00-4.8 [facility] Lymphocytes/100 WBC Auto (Bl d)Ordered By: Jabari Celeste on 10-14-2022 Lymphocytes/100 WBC (Bld) 22.7 % . [facility] MCH Auto (RBC) [Entitic mass ]Ordered By: Jabari Celeste on 10-14-2022 MCH (RBC) [Entitic mass] 25.7 pg 24.7-34.3 [facility] MCHC Auto (RBC) [Mass/Vol]Or dered By: Jabari Celeste on 10-14-2022 MCHC (RBC) [Mass/Vol] 32.3 g/dL 32.0-35.0 [facility] MCV Auto (RBC) [Entitic vol] Ordered By: Jabari Celeste on 10-14-2022 MCV (RBC) [Entitic vol] 79.7 fL 80-100 [facility] Monocytes Auto (Bld) [#/Vol] Ordered By: Jabari Celeste on 10-14-2022 Monocytes (Bld) [#/Vol] 0.7 10*3/uL 0.0-0.8 [facility] Monocytes/100 WBC Auto (Bld) Ordered By: Jabari Celeste on 10-14-2022 Monocytes/100 WBC (Bld) 7.7 % . [facility] Neutrophils Auto (Bld) [#/Vo l]Ordered By: Jabari Celeste on 10-14-2022 Neutrophils (Bld) [#/Vol] 6.0 10*3/uL 1.8-7.7 [facility] Neutrophils/100 WBC Auto (Bl d)Ordered By: Jabari Celeste on 10-14-2022 Neutrophils/100 WBC (Bld) 67.0 % . [facility] No Panel InformationOrdered By: Jabari Celeste on 10-14-2022 25-Hydroxy Vitamin D Total 19.9 ng/mL 30-100 [facility] Comment on above: VITAMIN D STATUS 25( [place])VITAMIN D RANGE (ng/mL) Deficient <20 Insufficient 20 to <30Sufficient 30 to 100Reference: Larisa MF,Marti NC, Emmanuel SMITH, et al. Evaluation,treatment, and prevention of vitamin D deficiency; an Endocrine Society clinical practice guideline. JCEM. 2010; 96(7):1911-30. Estimated GFR () > 60 mL/Min [facility] Comment on above: GFR estimated refere nce range: According to KDOQI guidelines, <60 ml/min/1.73m2 is sufficient to diagnose a patient with chronic kidney disease. Pharmacy Creatinine Clearance (Chem N/A [facility] Nucleated erythrocytes [Pres ence] in Blood by Automated countOrdered By: Jabari Celeste on 10-14-2022 Nucleated RBC Auto Ql (Bld) 0.1 /100{WBC} 0-0.5 [facility] Platelet mean volume Auto (B ld) [Entitic vol]Ordered By: Jabari Celeste on 10-14-2022 Platelet mean volume (Bld) [Entitic vol] 7.7 fL 6.3-10.7 [facility] Platelets Auto (Bld) [#/Vol] Ordered By: Jabari Celeste on 10-14-2022 Platelets (Bld) [#/Vol] 195 10*3/uL 150-450 [facility] Potassium [Moles/volume] in Serum or PlasmaOrdered By: Jabari Celeste on 10-14-2022 Potassium [Moles/Vol] 2.9 mmol/L 3.5-5.1 [facility] Comment on above: Results calledat 113 8 on 10/14/22 --- 10/14/22 1142 ---K previously reported as: 2.9 *L mmol/L Protein [Mass/volume] in Ser um or PlasmaOrdered By: Jabari Celeste on 10-14-2022 Protein [Mass/Vol] 6.3 g/dL 6.1-7.9 [facility] RBC Auto (Bld) [#/Vol]Ordere d By: Jabari Celeste on 10-14-2022 RBC (Bld) [#/Vol] 5.27 10*6/uL 3.60-5.00 [facility] Serum or plasma alanine da silva otransferase measurement without P-5'-P (enzymatic activiOrdered By: Jabari Celeste on 10-14-2022 ALT No additional P-5'-P [Catalytic activity/Vol] 12 U/L 10-60 [facility] Serum or plasma albumin/glob ulin mass ratioOrdered By: Jabari Celeste on 10-14-2022 Albumin/Globulin [Mass ratio] 1.4 {ratio} [facility] Serum or plasma anion gap de terminationOrdered By: Jabari Celeste on 10-14-2022 Anion gap [Moles/Vol] 10.9 mmol/L 6.0-15.0 [facility] Serum or plasma high density lipoprotein (HDL) cholesterol measurementOrdered By: Jabari Celeste on 10-14-2022 Cholesterol in HDL [Mass/Vol] 60 mg/dL 35-85 [facility] Comment on above: HDL CHOL ATP-III CLA SSIFICATION Cardiovascular RiskHDL > or equal to 60 mg/dL LOWHDL < 40 mg/dL HIGH Serum or plasma total choles terol/high density lipoprotein (HDL) cholesterol mass ratOrdered By: Jabari Celeste on 10-14-2022 Cholesterol.total/Chol esterol in HDL [Mass ratio] 3.3 {ratio} <5.0 [facility] Sodium [Moles/volume] in Ser um or PlasmaOrdered By: Jabari Celeste on 10-14-2022 Sodium [Moles/Vol] 139 mmol/L 136-146 [facility] TSH DL <= 0.005 mIU/L QnOrde red By: Jabari Celeste on 10-14-2022 TSH Qn 2.25 m[IU]/L 0.45-5.33 [facility] Triglyceride [Mass/volume] i n Serum or PlasmaOrdered By: Jabari Celeste on 10-14-2022 Triglyceride [Mass/Vol] 108 mg/dL 35-149 [facility] Comment on above: TRIG ATP III CLASSIF ICATIONTRIG less than 150 mg/dL NormalTRIG 150-199 mg/dL Borderline highTRIG 200-500 mg/dL High TRIG greater than 500 mg/dL Very highStandard traceable to the Center for Disease Conrtrol and Prevention (CDC) test method. Urea nitrogen [Mass/volume] in Serum or PlasmaOrdered By: Jabari Celeste on 10-14-2022 Urea nitrogen [Mass/Vol] 7 mg/dL 9- [facility] WBC Auto (Bld) [#/Vol]Ordere d By: Jabari Celeste on 10-14-2022 WBC (Bld) [#/Vol] 9.0 10*3/uL 3.8-11.6 [facility] Albumin [Mass/volume] in Ser um or PlasmaOrdered By: Jabari Celeste on 04-09-2022 Albumin [Mass/Vol] 3.4 g/dL 3.2-5.5 [facility] Basophils Auto (Bld) [#/Vol] Ordered By: Jabari Celeste on 04-09-2022 Basophils (Bld) [#/Vol] 0.1 10*3/uL 0.0-0.2 [facility] Basophils/100 WBC Auto (Bld) Ordered By: Jabari Celeste on 04-09-2022 Basophils/100 WBC (Bld) 0.8 % . [facility] Blood hemoglobin measurement (mass/volume)Ordered By: Jabari Celeste on 04-09-2022 Hemoglobin (Bld) [Mass/Vol] 13.5 g/dL 11.8-15.4 [facility] Blood leukocytes automated c ount (number/volume)Ordered By: Jabari Celeste on 04-09-2022 WBC (Bld) [#/Vol] 9.3 10*3/uL 4.5-11.0 [facility] Cholesterol [Mass/volume] in Serum or PlasmaOrdered By: Jabari Celeste on 04-09-2022 Cholesterol [Mass/Vol] 179 mg/dL 140-200 [facility] Comment on above: Chol less than 200 m g/dl low risk Chol 201-239 mg/dl borderline risk Chol 240 mg/dl and greater high risk Cholesterol in LDL Calc [Mas s/Vol]Ordered By: Jabari Celeste on 04-09-2022 Cholesterol in LDL [Mass/Vol] 104 mg/dL 0-100 [facility] Comment on above: LDL ATP III CLASSIFI CATION LDL less than 100 mg/dL Optimal LDL 100-129 mg/dL Near or above optimal LDL 130-159 mg/dL Borderline high LDL 160-189 mg/dL High LDL greater than 189 mg/dL Very high Cholesterol in VLDL Calc [Ma ss/Vol]Ordered By: Jabari Celeste on 04-09-2022 Cholesterol in VLDL [Mass/Vol] 17 mg/dL [facility] Creatinine and Glomerular fi ltration rate.predicted panel (S/P/Bld)Ordered By: Jabari Celeste on 04-09-2022 Creatinine [Mass/Vol] 0.74 mg/dL 0.44-1.03 [facility] Eosinophils Auto (Bld) [#/Vo l]Ordered By: Jabari Celeste on 04-09-2022 Eosinophils (Bld) [#/Vol] 0.2 10*3/uL 0.0-0.45 [facility] Eosinophils/100 WBC Auto (Bl d)Ordered By: Jabari Celeste on 04-09-2022 Eosinophils/100 WBC (Bld) 1.8 % . [facility] Erythrocyte distribution wid th Auto (RBC) [Ratio]Ordered By: Jabari Celeste on 04-09-2022 Erythrocyte distribution width (RBC) [Ratio] 14.7 % 11.9-15.3 [facility] Estimated glomerular filtrat ion rate (GFR) non- AmericanOrdered By: Jabari Celeste on 04-09-2022 GFR/1.73 sq M.predicted among non-blacks MDRD (S/P/Bld) [Vol rate/Area] > 60 mL/Min [facility] Globulin Calc (S) [Mass/Vol] Ordered By: Jabari Celeste on 04-09-2022 Globulin (S) [Mass/Vol] 2.7 g/dL [facility] Hematocrit Auto (Bld) [Volum e fraction]Ordered By: Jabari Celeste on 04-09-2022 Hematocrit (Bld) [Volume fraction] 41.6 % 34.0-46.4 [facility] - Hematology and Cell countsOrdered By: Jabari Celeste on 04-09-2022 Nucleated RBC/100 WBC (Bld) [Ratio] 0.0 % 0-0.5 [facility] Lymphocytes Auto (Bld) [#/Vo l]Ordered By: Jabari Celeste on 04-09-2022 Lymphocytes (Bld) [#/Vol] 2.0 10*3/uL 1.00-4.8 [facility] Lymphocytes/100 WBC Auto (Bl d)Ordered By: Jabari Celeste on 04-09-2022 Lymphocytes/100 WBC (Bld) 21.5 % . [facility] MCH Auto (RBC) [Entitic mass ]Ordered By: Jabari Celeste on 04-09-2022 MCH (RBC) [Entitic mass] 26.1 pg 24.7-34.3 [facility] MCHC Auto (RBC) [Mass/Vol]Or dered By: Jabari Celeste on 04-09-2022 MCHC (RBC) [Mass/Vol] 32.4 g/dL 32.0-35.0 [facility] MCV Auto (RBC) [Entitic vol] Ordered By: Jabari Celeste on 04-09-2022 MCV (RBC) [Entitic vol] 80.7 fL 80-100 [facility] Monocytes Auto (Bld) [#/Vol] Ordered By: Jabari Celeste on 04-09-2022 Monocytes (Bld) [#/Vol] 0.7 10*3/uL 0.0-0.8 [facility] Monocytes/100 WBC Auto (Bld) Ordered By: Jabari Celeste on 04-09-2022 Monocytes/100 WBC (Bld) 7.1 % . [facility] Neutrophils Auto (Bld) [#/Vo l]Ordered By: Jabari Celeste on 04-09-2022 Neutrophils (Bld) [#/Vol] 6.4 10*3/uL 1.8-7.7 [facility] Neutrophils/100 WBC Auto (Bl d)Ordered By: Jabari Celeste on 04-09-2022 Neutrophils/100 WBC (Bld) 68.8 % . [facility] No Panel InformationOrdered By: Jabari Celeste on 04-09-2022 25-Hydroxy Vitamin D Total 99.1 ng/mL 30-100 [facility] Comment on above: VITAMIN D STATUS 25( [place])VITAMIN D RANGE (ng/mL) Deficient <20 Insufficient 20 to <30 Sufficient 30 to 100 Reference: Larisa MF,Marti NC, Emmanuel SMITH, et al. Evaluation,treatment, and prevention of vitamin D deficiency; an Endocrine Society clinical practice guideline. JCEM. 2010; 96(7):1911-30. Estimated GFR () > 60 mL/Min [facility] Comment on above: GFR estimated refere nce range: According to KDOQI guidelines, <60 ml/min/1.73m2 is sufficient to diagnose a patient with chronic kidney disease. Pharmacy Creatinine Clearance (Chem N/A [facility] Platelet mean volume Auto (B ld) [Entitic vol]Ordered By: Jabari Celeste on 04-09-2022 Platelet mean volume (Bld) [Entitic vol] 7.8 fL 6.3-10.7 [facility] Platelets Auto (Bld) [#/Vol] Ordered By: Jabari Celeste on 04-09-2022 Platelets (Bld) [#/Vol] 230 10*3/uL 150-450 [facility] Protein [Mass/volume] in Ser um or PlasmaOrdered By: Jabari Celeste on 04-09-2022 Protein [Mass/Vol] 6.1 g/dL 6.1-7.9 [facility] RBC Auto (Bld) [#/Vol]Ordere d By: Jabari Celeste on 04-09-2022 RBC (Bld) [#/Vol] 5.16 10*6/uL 3.60-5.00 [facility] Serum or plasma alanine da silva otransferase measurement without P-5'-P (enzymatic activiOrdered By: Jabari Celeste on 04-09-2022 ALT No additional P-5'-P [Catalytic activity/Vol] 7 U/L 10-60 [facility] Serum or plasma albumin/glob ulin mass ratioOrdered By: Jabari Celeste on 04-09-2022 Albumin/Globulin [Mass ratio] 1.3 {ratio} [facility] Serum or plasma alkaline genevieve sphatase measurement (enzymatic activity/volume)Ordered By: Jabari Celeste on 04-09-2022 ALP [Catalytic activity/Vol] 35 U/L 32-92 [facility] Serum or plasma aspartate am inotransferase measurement (enzymatic activity/volume)Ordered By: Jabari Celeste on 04-09-2022 AST [Catalytic activity/Vol] 13 U/L 10-42 [facility] Serum or plasma calcium live urement (mass/volume)Ordered By: Jabari Celeste on 04-09-2022 Calcium [Mass/Vol] 8.9 mg/dL 8.2-10.2 [facility] Serum or plasma chloride lyric surement (moles/volume)Ordered By: Jabari Celeste on 04-09-2022 Chloride [Moles/Vol] 107 mmol/L 95-114 [facility] Serum or plasma glucose live urement (mass/volume)Ordered By: Jabari Celeste on 04-09-2022 Glucose [Mass/Vol] 82 mg/dL 70-100 [facility] Comment on above: ADA recommended refe rence range Random Glucose Reference Range is dependent on time and content of last meal. Glucose of more than 200 mg/dL in a nonstressed, ambulatory subject supports the diagnosis of Diabetes Mellitus. Serum or plasma high density lipoprotein (HDL) cholesterol measurementOrdered By: Jabari Celeste on 04-09-2022 Cholesterol in HDL [Mass/Vol] 58 mg/dL 35-85 [facility] Comment on above: HDL CHOL ATP-III CLA SSIFICATION Cardiovascular Risk HDL > or equal to 60 mg/dL LOW HDL < 40 mg/dL HIGH Serum or plasma potassium me asurement (moles/volume)Ordered By: Jabari Celeste on 04-09-2022 Potassium [Moles/Vol] 3.2 mmol/L 3.5-5.1 [facility] Serum or plasma sodium measu rement (moles/volume)Ordered By: Jabari Celeste on 04-09-2022 Sodium [Moles/Vol] 140 mmol/L 136-146 [facility] Serum or plasma total biliru bin measurement (mass/volume)Ordered By: Jabari Celeste on 04-09-2022 Bilirubin [Mass/Vol] 0.3 mg/dL 0.3-1.2 [facility] Serum or plasma total carbon dioxide measurement (moles/volume)Ordered By: Jabari Celeste on 04-09-2022 CO2 [Moles/Vol] 26.7 mmol/L 22.0-30.0 [facility] Serum or plasma total choles terol/high density lipoprotein (HDL) cholesterol mass ratOrdered By: Jabari Celeste on 04-09-2022 Cholesterol.total/Chol esterol in HDL [Mass ratio] 3.1 {ratio} <5.0 [facility] Serum or plasma urea nitroge n measurement (mass/volume)Ordered By: Jabari Celeste on 04-09-2022 Urea nitrogen [Mass/Vol] 10 mg/dL 9-23 [facility] Triglyceride [Mass/volume] i n Serum or PlasmaOrdered By: Jabari Celeste on 04-09-2022 Triglyceride [Mass/Vol] 86 mg/dL 35-149 [facility] Comment on above: TRIG ATP III CLASSIF ICATION TRIG less than 150 mg/dL Normal TRIG 150-199 mg/dL Borderline high TRIG 200-500 mg/dL High TRIG greater than 500 mg/dL Very high Standard traceable to the Center for Disease Conrtrol and Prevention (CDC) test method. Dermatopathologyon 8 Dermatopathology 81 Pathologist: COOPER GALEANOate of Procedure: 08/02/2018Date Received: 08/03/2018Date Reported 08/10/2018Submitting Physician: STACY MOODY MDLocation: AHMET FINAL DIAGNOSISSKIN, RT SUP. MED UPR BACK, EXCISION:DERMAL NEVUS AND CHANGES CONSISTENT WITH PREVIOUS PROCEDURE, INKED MARGINS FREEIN PLANES OF SECTIONS EXAMINED, SEE NOTE.Note: The dermal nevus is from the area of fibrosis by uninvolvedepidermis and dermis suggesting it is a separate process. Electronically Signed Out by FERMIN PANDYA M.D. Electronically SignedOut By FERMIN PANDYA MD/[facility] Microscopic Description:Microscopic analysis shows a symmetric, papular proliferation of blandmelanocytes in dermis. Dermal melanocytes mature with increasing depth indermis and show no cytologic atypia. An area with horizontally orientedcollagen and vertically oriented vessels is present.Clinical History:Malignant Melanoma. Excision. ([facility]). Specimens Submitted As:A: SKIN, RT SUP. MED UPR BACK Gross Description:Received in formalin is one barrera-brown, ellipsoid piece of skin [id number]. The specimen is inked and embedded in toto in fourteen blocks. dcp/08/04/2018 Normal [facility] Comment on above: Performed By: #### D ####Dermatopathology Dermatopathologyon 8 Dermatopathology 1 Pathologist: COOPER GALEANOate of Procedure: 07/25/2018Date Received: 07/25/2018Submitting Physician: STACY MOODY MDLocation: ADERM Copy To/Referring/Attending:COREY URBANO MD FINAL DIAGNOSIS1 [facility] [id number] (BX: 06/30/2018)SKIN, RT SUP MED UPR BACK, SHAVE BIOPSY:MALIGNANT MELANOMA, BRESLOW THICKNESS 0.7 MM, PRESENT ON THE DEEP ANDPERIPHERAL MARGIN IN ASSOCIATION WITH A DYSPLASTIC COMPOUND NEVUS, SEE NOTE.Note: Microscopic examination reveals a specimen that extends into thesuperficial to mid reticular dermis. There is an asymmetric proliferation ofnested and single atypical melanocytes throughout all layers of the epidermis.There are occasional nests of atypical melanocytes in the superficial dermiswith nests of benign appearing melanocytes in the dermis. In some areas theproliferation is near continuous along the dermal-epidermal junction, while inothers it is not. Electronically Signed Out by FERMIN PANDYA M.D. CANCER SUMMARY REPORTA. 1 [facility] [id number] (BX:06/30/2018): Procedure: Not specifiedSpecimen Laterality: RightTumor Site: Specify (if known): RT SUP MED UPR BACKMacroscopic Satellite Nodule(s): Not identifiedHistologic Type: Superficial spreading melanomaTumor Size: Indeterminate: Not availableMaximum Tumor Thickness: 0.7 mmAnatomic Level: III (Melanoma fills and expands papillarydermis)Ulceration: Not identifiedPeripheral Margins: Peripheral margins involved by melanoma insitu Location(s): Not possibleDeep Margins: Involved by melanoma in situ Specify location(s), if possible: At theperipheral margin.Mitotic Index: 0 / sq mmMicrosatellitosis: Not identifiedLymph-Vascular Invasion: Not identifiedPerineural Invasion: Not identifiedTumor-Infiltratin g Lymphocytes: Not identifiedTumor Regression: Not identifiedGrowth Phase: RadialLymph Nodes: Lymph nodes are not present in specimenTNM Descriptors: Not applicablePrimary Tumor (pT): pT1a: Melanoma <0.8 mm in thickness, noulcerationAdditional Pathologic Findings: Other(s): None Electronically Signed Out By FERMIN PANDYA MD/[facility] Clinical History: A: Morphology: 1.2cm ;DDX: Neoplasm of Uncertain Behavior vs. DysplasticNevus Specimens Submitted As:A: 1 [facility] [id number] (BX:06/30/2018) Gross Description:Received for consultation from [facility] is oneslide labeled [id number] (BX: 06/30/2018) along with the corresponding pathologyreport. Slide/Block Description1 SLIDE, [id number].Keep Slides: N Slides Returned: NPersonal Consult: N Normal [facility] Comment on above: Performed By: #### D ####Dermatopathology Vital Signs Date Time Vital Sign Value Performing Clinician Facility 04-03-2025 09:28-0400 Body mass index (BMI) [Ratio] 28.17 kg/m2 Gennaro Londono JANZZ Work Phone: [facility] 04-03-2025 09:28-0400 Body weight 69.85 kg Gennaro Spring JANZZ Work Phone: [facility] 04-03-2025 09:28-0400 Diastolic blood pressure 66 mm[Hg] Gennaro lBaser JANZZ Work Phone: [facility] 04-03-2025 09:28-0400 Systolic blood pressure 112 mm[Hg] Gennaro Londono DO Work Phone: [facility] 02-13-2025 09:00-0400 Body height 157.5 cm Jabari Celeste DO Work Phone: [facility] 02-13-2025 09:00-0400 Body mass index (BMI) [Ratio] 28.17 kg/m2 Jabari Roula DO Work Phone: [facility] 02-13-2025 09:00-0400 Body weight 69.85 kg Jabari Eduardoman DO Work Phone: [facility] 02-13-2025 09:00-0400 Diastolic blood pressure 70 mm[Hg] Jabari Celeste DO Work Phone: [facility] 02-13-2025 09:00-0400 Heart rate 104 /min Jabari Celeste DO Work Phone: [facility] 02-13-2025 09:00-0400 SaO2% (BldA) [Mass fraction] 91 % Jabair Celeste DO Work Phone: [facility] Comment on above: wearing O2@ 5 L per [place] 02-13-2025 09:00-0400 Systolic blood pressure 98 mm[Hg] Jabari Celeste DO Work Phone: [facility] 01-15-2025 07:30-0400 Heart rate 85 /min Jabari Celeste DO Work Phone: [facility] 01-15-2025 07:30-0400 Inhaled oxygen flow rate 5 L/min Jabari Celeste DO Work Phone: [facility] 01-15-2025 07:30-0400 Respiratory rate 45 /min Jabari Celeste DO Work Phone: [facility] 01-15-2025 07:30-0400 SaO2% (BldA) [Mass fraction] 97 % Jabari Celeste DO Work Phone: [facility] 01-15-2025 07:20-0400 Diastolic blood pressure 75 mm[Hg] Jabari Celeste DO Work Phone: [facility] 01-15-2025 07:20-0400 Systolic blood pressure 104 mm[Hg] Jabari Roula DO Work Phone: [facility] 01-15-2025 04:02-0400 Body height 157.48 cm Jabari Celeste DO Work Phone: [facility] 01-15-2025 04:02-0400 Body temperature 98.3 [degF] Jabari Celeste DO Work Phone: [facility] 01-15-2025 04:02-0400 Body weight 68.03 kg Jabari Roula DO Work Phone: [facility] 11-28-2024 13:43-0400 Body height 157.48 cm Jabari Celeste DO Work Phone: [facility] [facility] 11-28-2024 13:43-0400 Body mass index (BMI) [Ratio] 27.6 kg/m2 Jabari Celeste DO Work Phone: [facility] 11-28-2024 13:43-0400 Body weight 68.49 kg Jabariuday Celeste DO Work Phone: [facility] 11-28-2024 13:43-0400 Diastolic blood pressure 79 mm[Hg] Jabari Celeste DO Work Phone: [facility] 11-28-2024 13:43-0400 Heart rate 111 /min Jabari Celeste DO Work Phone: [facility] 11-28-2024 13:43-0400 Inhaled oxygen flow rate 5 L/min Jabari Celeste DO Work Phone: [facility] 11-28-2024 13:43-0400 Respiratory rate 20 /min Jabari Celeste DO Work Phone: [facility] 11-28-2024 13:43-0400 SaO2% (BldA) [Mass fraction] 95 % Jabari Roula DO Work Phone: [facility] 11-28-2024 13:43-0400 Systolic blood pressure 128 mm[Hg] Jabari Celeste DO Work Phone: [facility] 10-09-2024 09:37-0500 Body height 157.5 cm Jabari Celeste DO Work Phone: [facility] 10-09-2024 09:37-0500 Body mass index (BMI) [Ratio] 27.25 kg/m2 Jabari Celeste DO Work Phone: [facility] 10-09-2024 09:37-0500 Body weight 67.59 kg Jabari Celeste DO Work Phone: [facility] 10-09-2024 09:37-0500 Diastolic blood pressure 72 mm[Hg] Jabari Celeste DO Work Phone: [facility] 10-09-2024 09:37-0500 Heart rate 96 /min Jabari Roula DO Work Phone: [facility] 10-09-2024 09:37-0500 SaO2% (BldA) [Mass fraction] 95 % Jabariuday Celeste DO Work Phone: [facility] 10-09-2024 09:37-0500 Systolic blood pressure 128 mm[Hg] Jabari Celeste DO Work Phone: [facility] 10-06-2024 12:20-0500 Body temperature 98.4 [degF] Jabari Celeste DO Work Phone: [facility] 10-06-2024 12:20-0500 Diastolic blood pressure 67 mm[Hg] Jabari Celeste DO Work Phone: [facility] 10-06-2024 12:20-0500 Heart rate 111 /min Jabari Celeste DO Work Phone: [facility] 10-06-2024 12:20-0500 Inhaled oxygen flow rate 5 L/min Jabari Celeste DO Work Phone: [facility] 10-06-2024 12:20-0500 Respiratory rate 18 /min Jabari Celeste DO Work Phone: [facility] 10-06-2024 12:20-0500 SaO2% (BldA) [Mass fraction] 98 % Jabari Celeste DO Work Phone: [facility] 10-06-2024 12:20-0500 Systolic blood pressure 112 mm[Hg] Jabari Celeste DO Work Phone: [facility] 10-06-2024 06:00-0500 Body weight 69.8 kg Jabari Celeste DO Work Phone: [facility] 10-05-2024 16:24-0500 Body height 157.48 cm Jabari Celeste DO Work Phone: [facility] 10-04-2024 17:19-0500 Body temperature 98.2 [degF] Jabari Celeste DO Work Phone: [facility] 10-04-2024 17:19-0500 Diastolic blood pressure 80 mm[Hg] Jabari Celeste DO Work Phone: [facility] 10-04-2024 17:19-0500 Heart rate 85 /min Jabari Celeste DO Work Phone: [facility] 10-04-2024 17:19-0500 Inhaled oxygen flow rate 5 L/min Jabari Celeste DO Work Phone: [facility] 10-04-2024 17:19-0500 Respiratory rate 16 /min Jabari Celeste DO Work Phone: [facility] 10-04-2024 17:19-0500 SaO2% (BldA) [Mass fraction] 97 % Jabari Celeste DO Work Phone: [facility] 10-04-2024 17:19-0500 Systolic blood pressure 127 mm[Hg] Jabari Celeste DO Work Phone: [facility] 10-04-2024 12:24-0500 Body height 157.48 cm Jabari Celeste DO Work Phone: [facility] 10-04-2024 12:24-0500 Body weight 72 kg Jabari Celeste DO Work Phone: [facility] 09-19-2024 08:32-0500 Body height 157.5 cm Gennaro Londono DO Work Phone: [facility] 09-19-2024 08:32-0500 Body mass index (BMI) [Ratio] 27.25 kg/m2 Gennaro Londono DO Work Phone: [facility] 09-19-2024 08:32-0500 Body weight 67.59 kg Gennaro Londono DO Work Phone: [facility] 09-19-2024 08:32-0500 Diastolic blood pressure 70 mm[Hg] Gennaro Londono DO Work Phone: [facility] 09-19-2024 08:32-0500 Systolic blood pressure 124 mm[Hg] Gennaro Londono DO Work Phone: [facility] 08-15-2024 11:32-0500 Body mass index (BMI) [Ratio] 27.44 kg/m2 Jc Astudillo DYER ASSISTANT Work Phone: [facility] 08-15-2024 11:32-0500 Body weight 68.04 kg Jc Astudillo DYER ASSISTANT Work Phone: [facility] 08-15-2024 11:32-0500 Diastolic blood pressure 64 mm[Hg] Jc Astudillo DYER ASSISTANT Work Phone: [facility] 08-15-2024 11:32-0500 Heart rate 102 /min Jc Astudillo DYER ASSISTANT Work Phone: [facility] 08-15-2024 11:32-0500 SaO2% (BldA) [Mass fraction] 89 % Jc Astudillo DYER ASSISTANT Work Phone: [facility] 08-15-2024 11:32-0500 Systolic blood pressure 110 mm[Hg] Jc Cynthia DYER ASSISTANT Work Phone: [facility] 06-14-2024 11:04-0400 Body height 157.5 cm Belkis Loffelmann PA-C Work Phone: [facility] 06-14-2024 11:04-0400 Body mass index (BMI) [Ratio] 28.35 kg/m2 Belkis Loffelmann PA-C Work Phone: [facility] 06-14-2024 11:04-0400 Body weight 70.3 kg Belkis Loffelmann PA-C Work Phone: [facility] Comment on above: with shoes 06-14-2024 11:04-0400 Diastolic blood pressure 68 mm[Hg] Belkis Loffelmann PA-C Work Phone: [facility] 06-14-2024 11:04-0400 Heart rate 97 /min Belkis Loffelmann PA-C Work Phone: [facility] 06-14-2024 11:04-0400 SaO2% (BldA) [Mass fraction] 96 % Belkis Loffelmann PA-C Work Phone: [facility] Comment on above: [place] 6L 06-14-2024 11:04-0400 Systolic blood pressure 96 mm[Hg] Belkis Loffelmann PA-C Work Phone: [facility] 05-15-2024 12:03-0400 Body height 157.5 cm Jabari Celeste DO Work Phone: [facility] 05-15-2024 12:03-0400 Body mass index (BMI) [Ratio] 28.35 kg/m2 Jabari Celeste DO Work Phone: [facility] 05-15-2024 12:03-0400 Body weight 70.31 kg Jabari Celeste DO Work Phone: [facility] 05-15-2024 12:03-0400 Diastolic blood pressure 78 mm[Hg] Jabari Celeste DO Work Phone: [facility] 05-15-2024 12:03-0400 Heart rate 105 /min Jabari Celeste DO Work Phone: [facility] 05-15-2024 12:03-0400 SaO2% (BldA) [Mass fraction] 96 % Jabari Celeste DO Work Phone: [facility] 05-15-2024 12:03-0400 Systolic blood pressure 118 mm[Hg] Jabari Celeste DO Work Phone: [facility] 05-12-2024 12:16-0400 Diastolic blood pressure 77 mm[Hg] DO Jabari Celeste Work Phone: [facility] 05-12-2024 12:16-0400 Heart rate 95 /min DO Jabariuday Celeste Work Phone: [facility] 05-12-2024 12:16-0400 Inhaled oxygen flow rate 5 L/min DO Jabari Celeste Work Phone: [facility] 05-12-2024 12:16-0400 Respiratory rate 18 /min DO Jabari Celeste Work Phone: [facility] 05-12-2024 12:16-0400 SaO2% (BldA) [Mass fraction] 96 % DO Jabari Celeste Work Phone: [facility] 05-12-2024 12:16-0400 Systolic blood pressure 130 mm[Hg] DO Jabari Celeste Work Phone: [facility] 05-12-2024 07:51-0400 Body temperature 98.2 [degF] DO Jabari Celeste Work Phone: [facility] 05-12-2024 05:03-0400 Body weight 74.6 kg DO Jabari Celeste Work Phone: [facility] 05-08-2024 13:45-0400 Body height 157.48 cm DO Jabari Celeste Work Phone: [facility] 04-13-2024 10:38-0400 Body height 157.48 cm Jabari Celeste DO Work Phone: [facility] 04-13-2024 10:38-0400 Body weight 70.3 kg Jabari Celeste DO Work Phone: [facility] 03-07-2024 13:58-0400 Body height 157.48 cm [facility] 03-07-2024 13:58-0400 Body mass index (BMI) [Ratio] 28.3 kg/m2 [facility] 03-07-2024 13:58-0400 Body temperature 99.3 [degF] [facility] 03-07-2024 13:58-0400 Body weight 70.3 kg [facility] 03-07-2024 13:58-0400 Diastolic blood pressure 70 mm[Hg] [facility] 03-07-2024 13:58-0400 Heart rate 104 /min [facility] 03-07-2024 13:58-0400 Inhaled oxygen flow rate 6 L/min [facility] 03-07-2024 13:58-0400 Respiratory rate 20 /min [facility] 03-07-2024 13:58-0400 SaO2% (BldA) [Mass fraction] 96 % [facility] 03-07-2024 13:58-0400 Systolic blood pressure 111 mm[Hg] [facility] 10-16-2023 12:00-0500 Body temperature 97.3 [degF] DO Jabariuday Celeste Work Phone: [facility] 10-16-2023 12:00-0500 Diastolic blood pressure 74 mm[Hg] DO Jabariuday Celeste Work Phone: [facility] 10-16-2023 12:00-0500 Heart rate 90 /min DO Jabari Celeste Work Phone: [facility] 10-16-2023 12:00-0500 Inhaled oxygen flow rate 5 L/min DO Jabari Celeste Work Phone: [facility] 10-16-2023 12:00-0500 Respiratory rate 18 /min DO Jabari Celeste Work Phone: [facility] 10-16-2023 12:00-0500 SaO2% (BldA) [Mass fraction] 95 % DO Jabari Celeste Work Phone: [facility] 10-16-2023 12:00-0500 Systolic blood pressure 126 mm[Hg] DO Jabari Celeste Work Phone: [facility] 10-16-2023 06:40-0500 Body weight 72.9 kg DO Jabari Celeste Work Phone: [facility] 10-13-2023 16:43-0500 Body height 157.48 cm DO Jabari Celeste Work Phone: [facility] 09-07-2023 14:15-0500 Body height 157.48 cm Chilo Santos Other [facility] 09-07-2023 14:15-0500 Body mass index (BMI) [Ratio] 28.35 kg/m2 Chilo Santos Other [facility] Other 09-07-2023 14:15-0500 Body temperature 98.3 [degF] Chilo Santos Other [facility] Other 09-07-2023 14:15-0500 Body weight 70.31 kg Chilo Santos Other [facility] Other 09-07-2023 14:15-0500 Body weight 70.3 kg DO Jabari Celeste Work Phone: [facility] 09-07-2023 14:15-0500 Diastolic blood pressure 83 mm[Hg] Christopher Danielle Other [facility] 09-07-2023 14:15-0500 Respiratory rate 20 /min Christopher Danielle Other [facility] Other 09-07-2023 14:15-0500 SaO2% (BldA) [Mass fraction] Christioner Danielle Other [facility] Other 09-07-2023 14:15-0500 Systolic blood pressure 130 mm[Hg] Adolfoopher Danielle Other [facility] 09-08-2022 15:00-0500 Body height 157.48 cm Christopher Danielle Other [facility] [employer] Other 09-08-2022 15:00-0500 Body mass index (BMI) [Ratio] 27.98 kg/m2 Christopher Danielle Other [facility] Other 09-08-2022 15:00-0500 Body temperature 98.8 [degF] Christioner Danielle Other [facility] Other 09-08-2022 15:00-0500 Body weight 69.4 kg Christopher Danielle Other [facility] Other 09-08-2022 15:00-0500 Diastolic blood pressure 78 mm[Hg] Christopher Danielle Other [facility] Other 09-08-2022 15:00-0500 Respiratory rate 20 /min Christopher Danielle Other [facility] Other 09-08-2022 15:00-0500 SaO2% (BldA) [Mass fraction] Joaquíner Danielle Other [facility] Other 09-08-2022 15:00-0500 Systolic blood pressure 134 mm[Hg] Joaquíner Danielle Other [facility] Other 03-10-2022 15:00-0400 Body height 157.48 cm Joaquíner Danielle Other [facility] Other 03-10-2022 15:00-0400 Body mass index (BMI) [Ratio] 28.71 kg/m2 Joaquíner Danielle Other [facility] Other 03-10-2022 15:00-0400 Body temperature 98.6 [degF] Chilo Hollingsworthdano Other [facility] Other 03-10-2022 15:00-0400 Body weight 71.22 kg Joaquíner Danielle Other [facility] Other 03-10-2022 15:00-0400 Diastolic blood pressure 72 mm[Hg] Joaquíner Danielle Other [facility] Other 03-10-2022 15:00-0400 Respiratory rate 20 /min Joaquíner Danielle Other [facility] Other 03-10-2022 15:00-0400 SaO2% (BldA) [Mass fraction] Joaquíner Danielle Other [facility] Other 03-10-2022 15:00-0400 Systolic blood pressure 112 mm[Hg] Joaquíner Danielle Other [facility] Other 08-26-2021 15:00-0500 Body height 157.48 cm Chilo Bergno Other [facility] Other 08-26-2021 15:00-0500 Body mass index (BMI) [Ratio] 28.71 kg/m2 Chilo Hollingsworthdano Other [facility] Other 08-26-2021 15:00-0500 Body temperature 98.6 [degF] Chilo Hollingsworthdano Other [facility] Other 08-26-2021 15:00-0500 Body weight 71.22 kg Chilo Hollingsworthdano Other [facility] Other 08-26-2021 15:00-0500 Diastolic blood pressure 74 mm[Hg] Adolfoioner Danielle Other [facility] Other 08-26-2021 15:00-0500 Respiratory rate 20 /min Chilo Hollingsworthdano Other [facility] Other 08-26-2021 15:00-0500 SaO2% (BldA) [Mass fraction] Adolfosenia Hollingsworthdano Other [facility] Other 08-26-2021 15:00-0500 Systolic blood pressure 109 mm[Hg] Joaquíner Danielle Other [facility] Other Encounters Encounter Date Encounter Type Care Provider Facility Start: 04-11-2025 End: 04-11-2025 ambulatory JC ASTUDILLO Not Available Start: 04-05-2025 End: 04-05-2025 Patient encounter procedure [facility] Work Phone: Start: 04-05-2025 End: 04-05-2025 ambulatory Jabari Celeste DO Work Phone: [facility] Work Phone: Start: 04-03-2025 End: 04-03-2025 Office outpatient visit 15 minutes Gennaro Londono DO Work Phone: [facility] Comment on above: 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; HPV (human papilloma virus) infection Start: 04-03-2025 End: 04-03-2025 ambulatory GENNARO LONDONO Not Available Start: 02-13-2025 End: 02-13-2025 Bamboo flowsheet Jabari Celeste DO Work Phone: [facility] Start: 02-13-2025 End: 02-13-2025 Bamboo flowsheet Jabari Celeste DO Work Phone: [facility] Start: 02-13-2025 End: 02-13-2025 Patient encounter status Jabari Celeste DO Work Phone: [facility] Work Phone: Start: 02-13-2025 End: 02-13-2025 Periodic preventive med est patient 40-64yrs Jabari Celeste DO Work Phone: [facility] Comment on above: Encounter for [facility] health examination (Primary Dx); ILD (interstitial lung disease) (HCC); 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); Chronic hypoxemic respiratory failure (HCC); Supplemental oxygen dependent; Bilateral leg edema; Elevated LDL cholesterol level ; Vitamin D deficiency Start: 02-13-2025 End: 02-13-2025 ambulatory JABARI CELESTE Not Available Start: 02-07-2025 End: 02-11-2025 External Result Encounter Jabari Celeste DO Work Phone: [facility] External Department Unsolicited Start: 02-07-2025 End: 02-11-2025 External Result Encounter Jabari Celeste DO Work Phone: [facility] External Department Unsolicited Start: 02-07-2025 End: 02-07-2025 Patient encounter procedure Jabari Celeste DO -[facility] Start: 02-07-2025 End: 02-07-2025 ambulatory Jabari Celeste DO Work Phone: [facility] Work Phone: Start: 02-07-2025 Encounter for genera l adult medical examination without abnormal findings Jabari Celeste [facility] Start: 01-15-2025 End: 01-15-2025 Emergency department patient visit Jabari Celeste DO Work Phone: [facility]-Emergency Room Work Phone: Start: 01-01-2025 End: 01-01-2025 Patient encounter procedure Jabari Celeste DO Work Phone: [facility] Start: 01-01-2025 End: 01-01-2025 ambulatory Ernst Boone Facility:[facility] Start: 12-12-2024 End: 12-12-2024 Patient encounter procedure Jabari Celeste DO Work Phone: [facility] Start: 12-12-2024 End: 12-12-2024 ambulatory Jabari Celeste DO Work Phone: [facility] Work Phone: Start: 11-28-2024 End: 11-28-2024 ambulatory Jabari Celeste DO Work Phone: [facility] Work Phone: Start: 11-28-2024 End: 11-28-2024 Patient encounter procedure Jabari Celeste DO Work Phone: [facility] Work Phone: Start: 11-10-2024 End: 11-10-2024 Patient encounter procedure Jabari Celeste DO Work Phone: [facility] Work Phone: Start: 11-10-2024 End: 11-10-2024 ambulatory Jabari Celeste DO Work Phone: [facility] Work Phone: Start: 11-09-2024 End: 11-09-2024 Patient encounter procedure Jabari Celeste DO Work Phone: [facility] Start: 11-09-2024 End: 11-09-2024 ambulatory Jabari Celeste DO Work Phone: [facility] Work Phone: Start: 10-09-2024 End: 10-09-2024 Bamboo flowsheet Jabari Celeste DO Work Phone: [facility] Start: 10-09-2024 End: 10-09-2024 Bamboo flowsheet Jabari Celeste DO Work Phone: [facility] Start: 10-09-2024 End: 10-09-2024 Office outpatient visit 25 minutes Jabari Celeste DO Work Phone: [facility] Comment on above: Hypokalemia (Primary Dx); Palpitations; Pulmonary fibrosis (CMS/HCC); ILD (interstitial lung disease) (CMS/HCC); Supplemental oxygen dependent Start: 10-09-2024 End: 10-09-2024 ambulatory JABARI CELESTE Not Available Start: 10-05-2024 Non-patient / Non-visit Raúl Celeste DO Work Phone: [facility] Work Phone: Start: 10-04-2024 End: 10-06-2024 ambulatory Paddy Wiggins Facility:[facility] Start: 10-04-2024 End: 10-06-2024 Evaluation and management of inpatient Jabari Celeste DO Work Phone: [facility] [place] [facility] Work Phone: Start: 10-04-2024 End: 10-06-2024 observation encounter Jabari Celeste DO Work Phone: [facility] Work Phone: Start: 09-27-2024 End: 09-27-2024 ambulatory Jabari Celeste DO Work Phone: [facility] Work Phone: Start: 09-27-2024 End: 09-27-2024 Departed Referred Jabari Celeste DO Work Phone: [facility] [place] Work Phone: Start: 09-19-2024 End: 09-19-2024 Patient encounter status Gennaro Londono DO Work Phone: [facility] Start: 09-19-2024 End: 09-19-2024 Periodic preventive med est patient 40-64yrs Gennaro Londono DO Work Phone: [facility] Comment on above: Encounter for gyneco logical examination without abnormal finding; Screening for malignant neoplasm of cervix; Breast cancer screening by mammogram; Encounter for surveillance of contraceptive pills Start: 09-19-2024 End: 09-19-2024 ambulatory GENNARO LONDONO Not Available Start: 08-15-2024 End: 08-15-2024 Bamboo flowsheet Jabari Celeste DO Work Phone: [facility] Start: 08-15-2024 End: 08-15-2024 Bamboo flowsheet Jabari Celeste DO Work Phone: [facility] Start: 08-15-2024 End: 08-15-2024 Office outpatient visit 25 minutes Jc Astudillo DYER ASSISTANT Work Phone: [facility] Comment on above: ILD (interstitial lia ng disease) (CMS/HCC) (Primary Dx); Pulmonary fibrosis (CMS/HCC); 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); Mixed hyperlipidemia (CMS/HCC); Bilateral leg edema; Medication management Start: 08-15-2024 End: 08-15-2024 ambulatory JABARI CELESTE Not Available Start: 08-14-2024 End: 08-14-2024 Patient encounter procedure Jabari Celeste DO Work Phone: [facility] Start: 08-14-2024 End: 08-14-2024 ambulatory Jabari Celeste Facility:[facility] Start: 08-10-2024 End: 08-11-2024 ambulatory Shubham Knox MD Work Phone: Ophthalmology Comment on above: Floaters Start: 08-02-2024 End: 08-02-2024 ambulatory SHUBHAM KNOX Facility:[facility] Start: 08-02-2024 End: 08-02-2024 Patient encounter procedure Shubham Knox MD Work Phone: Ophthalmology Comment on above: Pseudophakia (Primar y Dx) Start: 07-24-2024 End: 07-24-2024 Telephone encounter Gennaro Londono DO Work Phone: [facility] Start: 07-17-2024 End: 07-17-2024 Refill Jabari Celeste DO Work Phone: [facility] Comment on above: ILD (interstitial lia ng disease) (CMS/HCC) (Primary Dx) Start: 07-12-2024 End: 07-12-2024 ambulatory SHUBHAM KNOX Facility:[facility] Start: 07-12-2024 End: 07-12-2024 Patient encounter procedure Shubham Knox MD Work Phone: Ophthalmology Comment on above: Pseudophakia (Primar y Dx) Start: 07-05-2024 End: 07-05-2024 ambulatory SHUBHAM KNOX Facility:[facility] Start: 07-05-2024 End: 07-05-2024 Patient encounter procedure Shubham Knox MD Work Phone: Ophthalmology Comment on above: Pseudophakia (Primar y Dx) Start: 07-04-2024 End: 07-04-2024 ambulatory SHUBHAM KNOX Facility:[facility] Start: 07-01-2024 End: 07-01-2024 Refill Shubham Knox MD Work Phone: Ophthalmology Start: 06-21-2024 End: 06-21-2024 ambulatory SHUBHAM KNOX Facility:[facility] Start: 06-21-2024 End: 06-21-2024 Patient encounter procedure Shubham Knox MD Work Phone: Ophthalmology Comment on above: Pseudophakia (Primar y Dx) Start: 06-20-2024 End: 06-20-2024 ambulatory JABARI CELESTE Facility:[facility] Start: 06-17-2024 End: 06-17-2024 Refill Shubham Knox MD Work Phone: Ophthalmology Start: 06-16-2024 End: 06-16-2024 ambulatory JABARI CELESTE Facility:[facility] Start: 06-14-2024 Encounter for other preprocedural examination BELKIS ARANDA [facility] Start: 06-14-2024 End: 06-14-2024 Preprocedural examination done Belkis Aranda PA-C Work Phone: [facility] Work Phone: Start: 06-14-2024 End: 06-14-2024 ambulatory BELKIS ARANDA Facility:[facility] Start: 06-14-2024 End: 06-14-2024 Patient encounter procedure Shubham Knox MD Work Phone: Ophthalmology Comment on above: Nuclear sclerotic ca taract, bilateral (Primary Dx); Blurry vision, bilateral; Myopia, bilateral Preoperative examina tion (Primary Dx); Nuclear sclerotic cataract of both eyes; ILD (interstitial lung disease) (HCC); Hypercholesterolemia; 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); Pulmonary fibrosis (HCC); Chronic hypoxemic respiratory failure (HCC); Edema of both lower legs; Polymyositis (HCC); Chronic obstructive pulmonary disease, unspecified COPD type (HCC) Start: 05-15-2024 End: 05-15-2024 Transitional care manage srvc 7 day discharge Jabari Celeste DO Work Phone: [facility] Comment on above: ILD (interstitial lia ng disease) (CMS/HCC) (Primary Dx); Pulmonary fibrosis (CMS/HCC); Chronic hypoxemic respiratory failure (CMS/HCC); 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); Bilateral leg edema; Other fatigue Start: 05-15-2024 End: 05-15-2024 ambulatory JABARI CELESTE Not Available Start: 05-07-2024 Non-patient / Non-visit Raúl Celeste DO Work Phone: [facility] Work Phone: Start: 05-07-2024 Non-patient / Non-visit DO Mukund cope Roula Work Phone: [facility] Pulmonary Disease Work Phone: Start: 05-06-2024 End: 05-12-2024 Evaluation and management of inpatient DO Jabari Celeste Work Phone: [facility] [place] [facility] Work Phone: Start: 04-28-2024 End: 04-28-2024 Telephone encounter Shubham Knox MD Work Phone: Ophthalmology Comment on above: Received Outside Med ical Records Start: 04-27-2024 End: 04-27-2024 ambulatory Jabari Celeste DO Work Phone: [facility] Work Phone: Start: 04-27-2024 End: 04-27-2024 Departed Referred Jabari Celeste DO Work Phone: [facility] [place] Start: 04-13-2024 End: 04-13-2024 ambulatory DO Jabari Celeste Work Phone: [facility] Work Phone: Start: 04-13-2024 End: 04-13-2024 Departed Referred DO Jabari Celeste Work Phone: [facility] Work Phone: Start: 04-13-2024 End: 04-13-2024 Patient encounter procedure DO Jabari Celeste Work Phone: [facility]-Pre-Surgical Testing Work Phone: Start: 03-10-2024 End: 03-10-2024 Patient encounter procedure DO Jabari Celeste Work Phone: [facility] Start: 03-07-2024 End: 03-07-2024 ambulatory [place] [facility] Work Phone: Start: 03-07-2024 End: 03-07-2024 Patient encounter procedure [facility] Work Phone: Start: 11-26-2023 End: 11-26-2023 ambulatory DO Jabari Celeste Work Phone: [facility] Work Phone: Start: 11-26-2023 End: 11-26-2023 Patient encounter procedure DO Jabari Celeste Work Phone: [facility]-Lab [facility] Start: 10-12-2023 Non-patient / Non-visit DO Mukundtwan gordony Roula Work Phone: [facility] Work Phone: Start: 10-12-2023 End: 10-16-2023 Evaluation and management of inpatient DO Jabari Celeste Work Phone: [facility] [place] [facility] Work Phone: Start: 09-30-2023 End: 09-30-2023 ambulatory DO Jabari Celeste Work Phone: [facility] Work Phone: Start: 09-30-2023 End: 09-30-2023 Patient encounter procedure DO Jabari Celeste Work Phone: [facility] Work Phone: Start: 09-10-2023 End: 09-10-2023 ambulatory DO Jabari Celeste Work Phone: [facility] Work Phone: Start: 09-10-2023 End: 09-10-2023 Patient encounter procedure DO Jabari Celeste Work Phone: [facility] Start: 09-07-2023 End: 09-07-2023 ambulatory Christopher Danielle Other [employer] [facility] [employer] Other Start: 09-07-2023 Office outpatient vi sit 15 minutes Christopher Danielle [facility] Start: 09-07-2023 End: 09-07-2023 Patient encounter procedure DO Jabari Celeste Work Phone: [facility]- Start: 01-14-2023 End: 01-14-2023 ambulatory Christopher Danielle Other [employer] Other Start: 01-14-2023 Encounter by compute r link Christopher Danielle [facility] Start: 11-23-2022 End: 11-23-2022 ambulatory Christopher Danielle Other [employer] Other Start: 11-23-2022 Encounter by [employer] Christopher Danielle [facility] Start: 10-19-2022 End: 10-19-2022 ambulatory DO Jabari Celeste Work Phone: [facility] Work Phone: Start: 10-19-2022 End: 10-19-2022 Patient encounter procedure DO Jabari Celeste Work Phone: [facility] [place] Work Phone: Start: 10-14-2022 End: 10-14-2022 ambulatory DO Jabari Celeste Work Phone: [facility] Work Phone: Start: 10-14-2022 End: 10-14-2022 Patient encounter procedure DO Jabari Celeste Work Phone: [facility] Start: 09-10-2022 End: 09-10-2022 ambulatory DO Jabari Celeste Work Phone: [facility] Work Phone: Start: 09-10-2022 End: 09-10-2022 Patient encounter procedure DO Jabari Celeste Work Phone: [facility] Work Phone: Start: 09-08-2022 End: 09-08-2022 ambulatory Christopher Danielle Other [employer] Other Start: 09-08-2022 Office outpatient vi sit 15 minutes Christopher Danielle [facility] Start: 05-04-2022 End: 05-04-2022 ambulatory Christopher Danielle Other [employer] Other Start: 05-04-2022 Encounter by [employer] Christopher Danielle [facility] Start: 04-21-2022 End: 04-21-2022 ambulatory Christopher Danielle Other [employer] Other Start: 04-21-2022 Encounter by [employer] Christopher Danielle [facility] Start: 04-09-2022 End: 04-09-2022 Patient encounter procedure DO Jabari Celeste Work Phone: [facility] Start: 03-10-2022 End: 03-10-2022 ambulatory Christopher Danielle Other [employer] Other Start: 03-10-2022 Office outpatient vi sit 15 minutes Christopher Danielle [facility] Start: 09-15-2021 End: 09-15-2021 ambulatory Chilo Hollingsworthdano Other [employer] Other Start: 09-15-2021 Encounter by yue guille gomez Chilo Bergno [facility] Start: 09-08-2021 End: 09-08-2021 ambulatory Chilo Hollingsworthdano Other [employer] Other Start: 09-08-2021 Telephone encounter Chilo guidoo [facility] Start: 08-26-2021 End: 08-26-2021 ambulatory Chilo Bergno Other [employer] Other Start: 08-26-2021 Office outpatient vi sit 10 minutes Chilo Bergno [facility] Start: 08-02-2018 Patient encounter procedure Stacy Moody Facility:[id number] Start: 08-02-2018 Patient encounter procedure Fermin Pandya Facility:[id number] Start: 07-25-2018 Patient encounter procedure Fermin Pandya Facility:[id number] Procedures Date Procedure Procedure Detail Performing Clinician Start: 04-05-2025 Dual energy X-ray absorptiometry Jabari Celeste DO Work Phone: Start: 02-07-2025 NICOTINE/COTININE BLOOD Jabari Celeste DO Work Phone: Start: 01-15-2025 Plain chest X-ray Daria Celeste DO Work Phone: Start: 11-10-2024 End: 11-10-2024 Screening mammography of bilateral breasts Jabari Celeste DO Work Phone: Start: 10-04-2024 Respiratory Panel (PCR) Jabari Celeste DO Work Phone: Start: 10-04-2024 CT of chest without contrast Jabari Celeste DO Work Phone: Start: 10-04-2024 Plain chest X-ray Daria Celeste DO Work Phone: Start: 05-08-2024 Methicillin resistan t Staphylococcus aureus culture DO Jabari Celeste Work Phone: Start: 05-07-2024 Respiratory Panel (PCR) DO Jabari Celeste Work Phone: Start: 05-07-2024 Respiratory Panel (PCR) Jabari Celeste DO Work Phone: Start: 05-06-2024 Aerobic microbial culture Jabari Celeste DO Work Phone: Start: 05-06-2024 Gram stain microscopy J shania Celeste JANZZ Work Phone: Start: 05-06-2024 Investigation of transfusion reaction DO Jabari Celeste Work Phone: Start: 11-26-2023 Lipid 1996 panel - S luz maria or Plasma Shubham Knox MD Work Phone: Start: 10-12-2023 SARS-CoV-2, Influenz a & RSV (PCR) DO Jabari Celeste Work Phone: Start: 10-12-2023 Duplex scan of lower limb veins DO Jabari Celeste komoot Phone: Start: 10-12-2023 CT angiography of thorax DO Jabari Celeste [employer] Phone: Start: 10-12-2023 Plain chest X-ray DO Leeroy Celeste kom[employer] Phone: Start: 09-30-2023 End: 09-30-2023 Screening mammography of bilateral breasts DO Jabari Celeste Work Phone: Start: 09-08-2023 Microscopic observat ion [Identifier] in Cervix by Cyto stain Jabari Celeste JANZZ Work Phone: Start: 09-10-2022 Screening mammograph y of bilateral breasts DO Jabari Celeste komoot Phone: Plan of Treatment Date Care Activity Detail Author Start: 09-19-2029 Screening for malignant neoplasm of cervix [facility] Start: 11-25-2028 Lipid panel Lipid Screening [facility] Start: 11-25-2026 Diabetes Screening Diabetes Screening [facility] Start: 09-08-2026 Screening for malignant neoplasm of cervix [facility] Start: 07-28-2026 Screening for malignant neoplasm of cervix HPV/Cotest [facility] Start: 11-10-2025 Screening for malignant neoplasm of breast Mammogram [facility] Start: 09-21-2025 End: 09-21-2025 Patient encounter procedure [facility] Start: 08-21-2025 End: 08-21-2025 Patient encounter procedure 08/21/2025 8:45 AM EST Office Visit [facility] Internal Medicine [address] [place] [id number] [facility] Internal Medicine Start: 04-16-2025 Influenza vaccination Influenza Vaccine (#1) [facility] Start: 04-03-2025 End: 04-03-2025 Patient encounter procedure 04/03/2025 9:45 AM EDT Office Visit [facility] OB [address] [place] [id number] Gennaro Londono DO [address] [place] [address] [facility] Start: 02-13-2025 End: 02-13-2025 Patient encounter procedure [facility] IM Comment on above: Arrived Start: 02-12-2025 End: 08-15-2025 Comprehensive metabolic 2000 panel - Serum or Plasma Comprehensive metabolic panel Lab Routine ILD (interstitial lung disease) (CMS/HCC) Pulmonary fibrosis (CMS/HCC) Bilateral leg edema Expected: 02/12/2025, Expires: 08/15/2025 [facility] Comment on above: Expected: 02/12/2025, Expires: Start: 02-12-2025 End: 08-15-2025 HEMOGRAM CBC WITHOUT DIFF ([facility]) HEMOGRAM CBC WITHOUT DIFF ([facility]) Lab Routine ILD (interstitial lung disease) (CMS/HCC) Pulmonary fibrosis (CMS/HCC) Medication management Expected: 02/12/2025 (Approximate), Expires: 08/15/2025 [facility] Work Phone: Comment on above: Expected: 02/12/2025 (Approximate), Expi res: 08/15/2025 Start: 02-12-2025 End: 08-15-2025 Lipid 1996 panel - Serum or Plasma Lipid panel Lab Routine Mixed hyperlipidemia (CMS/HCC) Expected: 02/12/2025, Expires: 08/15/2025 [facility] Comment on above: Expected: 02/12/2025, Expires: Start: 02-09-2025 End: 02-09-2025 Patient encounter procedure 02/09/2025 8:30 AM EDT Office Visit [facility] [address] [place] [phone] Jabari Celeste DO [address] [place] [address] [facility] Start: 02-07-2025 [facility] Start: 01-15-2025 Plain chest X-ray XR chest 1V portable [facility] Start: 01-15-2025 XR Chest Single view [facility] Start: 10-14-2024 [facility] Start: 10-13-2024 [facility] Start: 10-12-2024 [facility] Start: 10-11-2024 [facility] Start: 10-10-2024 [facility] Start: 10-09-2024 End: 10-09-2024 Patient encounter procedure 10/09/2024 9:30 AM EST Office Visit [facility] [address] [place] [phone] Jaabri Celeste DO [address] [place] [address] Arrived [facility] Comment on above: Arrived Start: 10-09-2024 [facility] Start: 10-08-2024 [facility] Start: 10-07-2024 [facility] Start: 10-06-2024 End: 10-06-2024 [facility] Start: 10-05-2024 [facility] Start: 10-04-2024 Hospital admission [facility] Start: 10-04-2024 [facility] Start: 10-04-2024 Consultation [facility] Start: 10-01-2024 End: 11-17-2025 DBT Breast - bilateral screening Bilateral screening mammogram with tomosynthesis Imaging Routine Breast cancer screening by mammogram Expected: 10/01/2024, Expires: 11/17/2025 [facility] Comment on above: Expected: 10/01/2024, Expires: Start: 09-30-2024 Screening for malignant neoplasm of breast [facility] Start: 09-19-2024 End: 09-19-2024 Patient encounter procedure 09/19/2024 8:45 AM EST Office Visit [facility] [address] [place] [phone] Gennaro Londono, DO [address] [place] [address] [facility] Start: 09-13-2024 End: 09-13-2024 Patient encounter procedure 09/13/2024 2:00 PM EST Office Visit [facility] [address] [place] [phone] Gennaro Londono, DO [address] [place] [address] [facility] Start: 08-23-2024 End: 08-23-2024 Patient encounter procedure 08/23/2024 3:15 PM EST Office Visit [facility] 1999 [facility] [address] [place] [address] Shubham Knox MD [address] [place] [phone] post op Ophthalmology Comment on above: post op Start: 08-15-2024 End: 08-15-2024 Patient encounter procedure [facility] Comment on above: Arrived Start: 08-07-2024 End: 05-15-2025 CBC W Auto Differential panel - Blood CBC and differential Lab Routine 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) Expected: 08/07/2024 (Approximate), Expires: 05/15/2025 [facility] Comment on above: Expected: 08/07/2024 (Approximate), Expi res: 05/15/2025 Start: 08-07-2024 End: 05-15-2025 Comprehensive metabolic 2000 panel - Serum or Plasma Comprehensive metabolic panel Lab Routine 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) Expected: 08/07/2024 (Approximate), Expires: 05/15/2025 [facility] Work Phone: Comment on above: Expected: 08/07/2024 (Approximate), Expi res: 05/15/2025 Start: 08-07-2024 End: 05-15-2025 Lipid 1996 panel - Serum or Plasma Lipid panel Lab Routine 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) Expected: 08/07/2024 (Approximate), Expires: 05/15/2025 [facility] Comment on above: Expected: 08/07/2024 (Approximate), Expi res: 05/15/2025 Start: 08-07-2024 End: 05-15-2025 Thyrotropin [Units/volume] in Serum or Plasma TSH Lab Routine Other fatigue Expected: 08/07/2024 (Approximate), Expires: 05/15/2025 [facility] Comment on above: Expected: 08/07/2024 (Approximate), Expi res: 05/15/2025 Start: 08-02-2024 End: 08-02-2024 Patient encounter procedure 08/02/2024 11:00 AM EST Office Visit [facility] [address] [address] Shubham Knox MD [address] [address] ONE MONTH POST OP/ OUTCOME Ophthalmology Comment on above: ONE MONTH POST OP/ OUTCOME Start: 07-12-2024 End: 07-12-2024 Patient encounter procedure 07/12/2024 10:15 AM EST Office Visit [facility] [address] [place] [address] Shubham Knxo MD [address] [place] [address] ONE WEEK POST OP Ophthalmology Comment on above: ONE WEEK POST OP Start: 07-05-2024 End: 07-05-2024 Patient encounter procedure 07/05/2024 12:45 PM EST Office Visit [facility] [address] [address] Shubham Knox MD [address] [place] [address] FIRST DAY POST OP Ophthalmology Comment on above: FIRST DAY POST OP Start: 07-04-2024 End: 07-04-2024 Admission to same day surgery center Ophthalmology Comment on above: PHACOEMULSIFICATION CATARACT IMPLANT INT RAOCULAR LENS W/O ENDOSCOPIC CYCLOPHOTOCOAGULATION Start: 07-04-2024 End: 07-04-2024 Oph bmtry prtl coher intrfrmtry io lens pwr elisa [facility] Start: 07-04-2024 Subsequent hospital visit by physician Ophthalmology Comment on above: Nuclear sclerotic cataract, bilateral [H 25.13] Start: 07-04-2024 End: 07-04-2024 Xcapsl ctrc rmvl insj io lens prosth w/o ecp [facility] Start: 07-04-2024 End: 07-04-2024 Admission to same day surgery center 07/04/2024 11:23 AM EST - 07/04/2024 11:52 AM EST Surgery Ophthalmology [address] [address] Shubham Knox MD [address] [place] [address] PHACOEMULSIFICATION CATARACT IMPLANT INTRAOCULAR LENS W/O ENDOSCOPIC CYCLOPHOTOCOAGULATION Ophthalmology Comment on above: PHACOEMULSIFICATION CATARACT IMPLANT INT RAOCULAR LENS W/O ENDOSCOPIC CYCLOPHOTOCOAGULATION Start: 07-04-2024 End: 07-04-2024 Oph bmtry prtl coher intrfrmtry io lens pwr elisa OPHTHALMIC BIOMETRY BY PARTIAL COHERENCE INTERFEROMETRY W/INTRAOCULAR LENS POWER CALCULATION Nuclear sclerotic cataract, bilateral 07/04/2024 11:23 AM EST [facility] Start: 07-04-2024 Subsequent hospital visit by physician 07/04/2024 11:23 AM EST Hospital Encounter Ophthalmology [address] [address] Shubham Knox MD [address] [place] [address] Nuclear sclerotic cataract, bilateral [H25.13] Ophthalmology Comment on above: Nuclear sclerotic cataract, bilateral [H 25.13] Start: 07-04-2024 End: 07-04-2024 Xcapsl ctrc rmvl insj io lens prosth w/o ecp PHACOEMULSIFICATION CATARACT IMPLANT INTRAOCULAR LENS W/O ENDOSCOPIC CYCLOPHOTOCOAGULATION Nuclear sclerotic cataract, bilateral 07/04/2024 11:23 AM EST [facility] Start: 06-21-2024 End: 06-21-2024 Patient encounter procedure 06/21/2024 10:15 AM EST Office Visit [facility] 1999 [facility] [address] [place] [address] Shubham Knox MD [address] [place] [phone] FIRST DAY POST OP Ophthalmology Comment on above: FIRST DAY POST OP Start: 06-20-2024 End: 06-20-2024 Admission to same day surgery center 06/20/2024 4:01 PM EST - 06/20/2024 4:30 PM EST Surgery Ophthalmology [address] [address] Shubham Knox MD [address] [place] [address] PHACOEMULSIFICATION CATARACT IMPLANT INTRAOCULAR LENS W/O ENDOSCOPIC CYCLOPHOTOCOAGULATION Ophthalmology Comment on above: PHACOEMULSIFICATION CATARACT IMPLANT INT RAOCULAR LENS W/O ENDOSCOPIC CYCLOPHOTOCOAGULATION Start: 06-20-2024 End: 06-20-2024 Oph bmtry prtl coher intrfrmtry io lens pwr elisa OPHTHALMIC BIOMETRY BY PARTIAL COHERENCE INTERFEROMETRY W/INTRAOCULAR LENS POWER CALCULATION Nuclear sclerotic cataract, bilateral 06/20/2024 4:01 PM EST [facility] Start: 06-20-2024 Subsequent hospital visit by physician 06/20/2024 4:01 PM EST Hospital Encounter Ophthalmology [address] [place] [id number] Shubham Knox MD [address] [place] [address] Nuclear sclerotic cataract, bilateral [H25.13] Ophthalmology Comment on above: Nuclear sclerotic cataract, bilateral [H 25.13] Start: 06-20-2024 End: 06-20-2024 Xcapsl ctrc rmvl insj io lens prosth w/o ecp PHACOEMULSIFICATION CATARACT IMPLANT INTRAOCULAR LENS W/O ENDOSCOPIC CYCLOPHOTOCOAGULATION Nuclear sclerotic cataract, bilateral 06/20/2024 4:01 PM EST [facility] Start: 06-20-2024 End: 06-20-2024 Admission to same day surgery center 06/20/2024 12:01 PM EST - 06/20/2024 12:30 PM EST Surgery Ophthalmology [address] [address] Shubham Knox MD [address] [place] [phone] PHACOEMULSIFICATION CATARACT IMPLANT INTRAOCULAR LENS W/O ENDOSCOPIC CYCLOPHOTOCOAGULATION Ophthalmology Comment on above: PHACOEMULSIFICATION CATARACT IMPLANT INT RAOCULAR LENS W/O ENDOSCOPIC CYCLOPHOTOCOAGULATION Start: 06-20-2024 End: 06-20-2024 Oph bmtry prtl coher intrfrmtry io lens pwr elisa OPHTHALMIC BIOMETRY BY PARTIAL COHERENCE INTERFEROMETRY W/INTRAOCULAR LENS POWER CALCULATION Nuclear sclerotic cataract, bilateral 06/20/2024 12:01 PM EST [facility] Start: 06-20-2024 Subsequent hospital visit by physician 06/20/2024 12:01 PM EST Hospital Encounter Ophthalmology [address] [address] Shubham Knox MD [address] [place] [address] Nuclear sclerotic cataract, bilateral [H25.13] Ophthalmology Comment on above: Nuclear sclerotic cataract, bilateral [H 25.13] Start: 06-20-2024 End: 06-20-2024 Xcapsl ctrc rmvl insj io lens prosth w/o ecp PHACOEMULSIFICATION CATARACT IMPLANT INTRAOCULAR LENS W/O ENDOSCOPIC CYCLOPHOTOCOAGULATION Nuclear sclerotic cataract, bilateral 06/20/2024 12:01 PM EST [facility] Start: 06-16-2024 End: 06-16-2024 Patient encounter procedure 06/16/2024 4:30 PM EDT Office [place] [address] PRE OP MARUQEZ [employer] [facility] Comment on above: PRE OP MARQUEZ Start: 06-14-2024 End: 06-14-2024 Patient encounter procedure 06/14/2024 8:15 AM EDT Office Visit [facility] Op[facility]mology [address] [place] [address] [place], [place] [id number] Shubham Knox MD [address] [place] [address] Complete exam Ophthalmology Comment on above: Complete exam Start: 05-12-2024 [facility] Start: 05-09-2024 Administration of prophylactic treatment [facility] Start: 05-06-2024 Hospital admission [facility] Start: 05-06-2024 Consultation [facility] Start: 04-27-2024 Phacoemulsification of cataract with intraocular lens implantation OR Cataract PHACO W/IOL/Vitrectomy (Left) [facility] Start: 04-16-2024 Covid-19 Vaccine ( season) Covid-19 Vaccine ( season) [facility] Start: 04-16-2024 Covid-19 Vaccine ( season) Covid-19 Vaccine ( season) [facility] Start: 04-16-2024 Influenza vaccination [facility] Start: 10-16-2023 [facility] Start: 10-12-2023 Consultation [facility] Start: 10-12-2023 Hospital admission [facility] Start: 04-30-2022 Diabetes Screening Diabetes Screening [facility] Start: 2020 Lipid panel Lipid Screening [facility] Start: 2020 Screening for malignant neoplasm of colon [facility] Start: 2015 Screening for malignant neoplasm of breast Mammogram Screening [facility] Start: 1996 Screening for malignant neoplasm of cervix Cervical Cancer Screening [facility] Start: 1994 Hepatitis B Vaccine (1 of 3 - 19+ 3-dose series) Hepatitis B Vaccine (1 of 3 - 19+ 3-dose series) [facility] Start: 1994 Shingrix Vaccine (1 of 2) Shingrix Vaccine (1 of 2) [facility] Start: 1994 Urine microalbumin profile DTaP,Tdap,Td Vaccine (1 - Tdap) [facility] Start: 1993 Anxiety Screening Anxiety Screening [facility] Start: 1993 Depression Screening Depression Screening [facility] Start: 1993 HIV screening HIV Screening [facility] Start: 1986 Screening for malignant neoplasm of cervix Cervical Cancer Screening [facility] Start: 1975 Screening for malignant neoplasm of colon [facility] CORNEAL TOPOGRAPHY A TLAS OU (BOTH EYES) CORNEAL TOPOGRAPHY ATLAS OU (BOTH EYES) [facility] Imaging Routine Nuclear sclerotic cataract, bilateral 06/14/2024 9:11 AM EDT [facility] Cotinine [Mass/volum e] in Serum or Plasma [facility] IGP, APT HPV,RFX 16/18,45 IGP, A PT HPV,RFX 16/18,45 Lab Routine Screening for malignant neoplasm of cervix Ordered: 09/19/2024 [facility] Work Phone: Comment on above: Ordered: 09/19/2024 IGP, APT HPV,RFX 16/18,45 IGP, A PT HPV,RFX 16/18,45 Lab Routine 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 B prohormone N-Terminal [Mass/volume] in Serum or Plasma [facility] Nicotine [Mass/volum e] in Serum or Plasma [facility] OCT MACULA CIRRUS OU (BOTH EYES) OCT MACULA CIRRUS OU (BOTH EYES) [facility] Imaging Routine Nuclear sclerotic cataract, bilateral 06/14/2024 9:20 AM EDT [facility] Patient Education [facility] Work Phone: Patient referral [facility] Work Phone: [facility] Immunizations Immunization Date Immunization Notes Care Provider Fa boomty 06-01-2024 influenza virus vaccine, unspecified formulation Jabari Celeste DO Work Phone: [facility] 05-16-2024 influenza, injectabl e, quadrivalent, contains preservative Jc Astudillo DYER ASSISTANT Work Phone: [facility] 06-15-2023 influenza virus vaccine, unspecified formulation Jabari Celeste DO Work Phone: [facility] 04-12-2023 Pneumococcal Conjuga te PCV 20 Jabari Celeste DO Work Phone: [facility] 07-29-2022 influenza, injectabl e, quadrivalent, preservative free Jabari Celeste DO Work Phone: [facility] 06-15-2022 influenza virus vaccine, unspecified formulation Jabari Celeste DO Work Phone: [facility] 06-03-2021 influenza virus vaccine, unspecified formulation Jabari Celeste DO Work Phone: [facility] 05-19-2021 influenza, injectabl e, quadrivalent, preservative free Jabari Celeste DO Work Phone: [facility] 04-10-2021 COVID-19 Vaccine Moderna - Documentation Purposes Only Chilo Santos Other [facility] 04-09-2021 Moderna SARS-CoV-2 Vaccination Jabari Celeste DO Work Phone: [facility] 11-15-2020 COVID-19 Vaccine Moderna - Documentation Purposes Only Chilo Santos Other [facility] 11-14-2020 Moderna SARS-CoV-2 Vaccination Jabari Celeste DO Work Phone: [facility] 10-18-2020 COVID-19 Vaccine Moderna - Documentation Purposes Only Chilo Bergno Other [facility] 10-17-2020 Moderna SARS-CoV-2 Vaccination Jabari Celeste DO Work Phone: [facility] 08-16-2018 influenza, seasonal, injectable Jabari Celeste DO Work Phone: [facility] 06-01-2018 influenza virus vaccine, unspecified formulation Shubham Knox MD Work Phone: [facility] 05-23-2018 influenza, seasonal, injectable, preservative free Shubham Knox MD Work Phone: [facility] 06-10-2017 influenza, injectabl e, quadrivalent, preservative free Shubham Knox MD Work Phone: [facility] 05-31-2017 influenza virus vaccine, unspecified formulation Jabari Celeste DO Work Phone: [facility] 05-31-2017 influenza, seasonal, injectable, preservative free Shubham Knox MD Work Phone: [facility] 07-07-2016 pneumococcal conjuga te vaccine, 13 valent Shubham Knox MD Work Phone: [facility] 06-09-2016 influenza, injectabl e, quadrivalent, preservative free Shubham Knox MD Work Phone: [facility] 05-29-2016 pneumococcal polysaccharide vaccine, 23 valent Shubham Knox MD Work Phone: [facility] 06-11-2015 influenza, seasonal, injectable, preservative free Shubham Knox MD Work Phone: [facility] 05-16-2015 seasonal influenza, intradermal, preservative free Shubham Knox MD Work Phone: [facility] 08-16-2014 pneumococcal polysaccharide vaccine, 23 valent Jabari Celeste DO Work Phone: [facility] 05-30-2014 influenza virus vaccine, unspecified formulation Jabari Celeste DO Work Phone: [facility] 07-24-2013 influenza, injectabl e, quadrivalent, preservative free Jabari Roula DO Work Phone: [facility] 07-24-2013 influenza, seasonal, injectable Shubham Knox MD Work Phone: [facility] 07-21-2011 influenza virus vaccine, unspecified formulation Jabari Roula DO Work Phone: [facility] 07-21-2011 influenza, seasonal, injectable Shubham Knox MD Work Phone: [facility] 06-05-2010 pneumococcal polysaccharide vaccine, 23 valent Jabari Celeste DO Work Phone: [facility] 08-16-2009 pneumococcal polysaccharide vaccine, 23 valsarabjit Knox MD Work Phone: [facility] 06-06-2009 novel [id number], preservative-free, injectable Shubham Knox MD Work Phone: [facility] 06-26-2005 pneumococcal polysaccharide vaccine, 23 valsarabjit Knox MD Work Phone: [facility] NEGATED: Highlighted row has not occurred!04-28-2019 influenza, injectable, quadrivalent, preservative free Shubham Knox MD Work Phone: [facility] Comment on above: Deferred: Patient Re fused NEGATED: Highlighted row has not occurred!04-28-2019 pneumococcal polysaccharide vaccine, 23 valsarabjit Knox MD Work Phone: [facility] Comment on above: Deferred: Patient Re fused NEGATED: Highlighted row has not occurred!04-27-2019 influenza, injectable, quadrivalent, preservative free Shubham Knox MD Work Phone: [facility] Work Phone: Comment on above: Deferred: Patient Re fused NEGATED: Highlighted row has not occurred!04-24-2019 pneumococcal polysaccharide vaccine, 23 valent Shubham Knox MD Work Phone: [facility] Comment on above: Deferred: - patient states she had in 2014 LIP notified Payers Date Payer Category Payer Self-pay 2021 Private Health Insurance [employer] [id number] 2019 Unknown [id number] 2015 Unknown [id number] 1975 Unknown [id number] 2.16.840.1.583474.3.579.2. 356 1975 Unknown [id number] 2.16.840.1.166781.3.579.2. 356 1975 Unknown [id number] 2.16.840.1.587983.3.579.2. 356 1975 Unknown [id number] 2.16.840.1.083753.3.579.2. 1259 1975 Unknown [id number] 2.16.840.1.784635.3.579.2. 1258 1975 Unknown [id number] 2.16.840.1.970602.3.579.2. 9 1975 Unknown [id number] 2.16.840.1.801671.3.579.2. 9 1975 Unknown [id number] 2.16.840.1.814606.3.579.2. 1259 1975 Unknown [id number] 2.16.840.1.962303.3.579.2. 9 1975 Unknown [id number] 2.16.840.1.836161.3.579.2. 1259 1975 Unknown [id number] 2.16.840.1.477305.3.579.2. 1259 Unknown [id number] 2.16.840.1.816254.3.579.2. 531 Unknown [id number] 2.16.840.1.658166.3.579.2. 531 Unknown [id number] 2.16.840.1.761778.3.579.2. 531 Unknown [id number] 2.16.840.1.663578.3.579.2. 531 Unknown [id number] 2.16.840.1.519262.3.579.2. 531 Unknown [id number] 2.16.840.1.271137.3.579.2. 531 Unknown [id number] 2.16.840.1.588311.3.579.2. 531 Unknown [id number] 2.16.840.1.205248.3.579.2. 531 Unknown [id number] 2.16.840.1.469138.3.579.2. 531 Unknown [id number] 2.16.840.1.267636.3.579.2. 531 Unknown [id number] 2.16.840.1.288164.3.579.2. 531 Unknown [id number] 2.16.840.1.036892.3.579.2. 531 Unknown [id number] 2.16.840.1.125621.3.579.2. 531 Social History Date Type Detail Facility Sex Assigned At [facility] Start: 07-11-2019 End: 02-13-2025 Sex Assigned At [facility] Start: 05-08-2020 End: 01-15-2025 Tobacco smoking status NHIS Ex-smoker (finding) [facility] Start: 1975 Sex Assigned At Female F [facility] Start: 08-16-1990 End: 08-16-2000 History of tobacco use Current smoker [facility] Start: 04-24-2019 End: 05-15-2024 Tobacco use and exposure Smokeless tobacco non-user [facility] Start: 07-11-2019 End: 08-02-2024 Alcoholic beverage intake Not Asked [facility] Start: 07-11-2019 End: 02-13-2025 History of Social function [facility] Adult Depression Screening Assessment 0 [facility] Start: 1975 Sex assigned at Not on file C [facility] Start: 08-16-1990 End: 08-16-2000 History of tobacco use Cigarette Smoker [facility] History of tobacco use Passive smoker [facility] Start: 05-15-2024 End: 04-03-2025 Alcoholic beverage intake Current drinker of alcohol (finding) [facility] How often to you hav e a drink containing alcohol? Monthly or less [facility] How many standard drinks containing alcohol do you have on a typical day? 1 or 2 [facility] How often do you hav e 6 or more drinks on 1 occasion? Less than monthly [facility] Start: 04-05-2023 Tobacco Comment Ex- moderate c igarette smoker (10-19/day) [facility] Start: 04-05-2023 Alcohol Comment Caffeine: 1-2 cups/day coffee [facility] Start: 10-28-2022 Gender identity Identifies as female gender (finding) [facility] Start: 03-07-2024 Sexual orientation Heterosexual (fin [place]) [facility] Start: 06-29-2024 End: 01-15-2025 Sex Female (finding) [facility] How often do you hav e 6 or more drinks on 1 occasion? Never [facility] Start: 10-05-2024 SDOH Follow up SDOH Follow up [facility] Work Phone: Start: 04-02-2025 Alcohol Comment Social Drinker - Less than 1 drink per week [facility] NEGATED: Highlighted row [facility] Medical Equipment Procedure Code Equipment Code Equipment Origin al Text Equipment Identifier Dates [id number] [facility] - [id number] Start: 06-20-2024 [id number] [facility] - [id number] Start: 07-04-2024 Goals Date Patient Goal Desired Activity /State Functional Status Date Assessment Result Facility 02-13-2025 Patient Health [facility] ionnaire 2 item (PHQ-2) [Reported] [facility] 10-06-2024 Functional status Patient at Baseline [facility] Work Phone: 10-04-2024 Functional status Patient at Baseline [facility] Work Phone: 05-12-2024 Functional status Patient at Baseline [facility] Work Phone: 10-16-2023 Functional status Patient at Baseline [facility] Work Phone: [facility] Mental Status Date Assessment Result Facility 10-06-2024 Cognitive function Cognitive Sta tus Patient at Baseline [facility] Work Phone: 10-04-2024 Cognitive function Cognitive Sta tus Patient at Baseline [facility] Work Phone: 05-12-2024 Cognitive function Cognitive Sta tus Patient at Baseline [facility] Work Phone: 10-16-2023 Cognitive function Cognitive Sta tus Patient at Baseline [facility] Work Phone: Clinical Notes 03-10-2022 to 04-03-2025 Chiquis Mitchell MA - 04/03/2025 9:45 AM EDT Note Date & Type Note Facility 04-03-2025 History of Presen t illness Narrative Images from the original note were not included. Gennaro Londono, DO Obstetrics and Gynecology Flash Irving 1975 04/03/25 [id number] Exam Chief Complaint Patient presents with Abnormal Pap Smear Repeat pap. Last pap 09-19-24 LGSIL, HPV pos. Colpo 09-27-24. Visit Vitals BP 112/66 Wt 154 lb LMP 03/20/2025 BMI 28.17 kg/m OB Status Having periods Smoking Status Former BSA 1.75 m OB History Para Term AB Living 0 0 0 0 0 0 SAB IAB Ectopic Multiple Live Births 0 0 0 0 0 Current Outpatient Medications Medication Sig Dispense Refill predniSONE (Deltasone) 1 MG tablet 1 mg 4 (four) times a day W/ 5MG for 9MG daily predniSONE (Deltasone) 5 MG tablet Take 5 mg by mouth Daily W/ 1MGx4 for 9MG daily ALPRAZolam (Xanax) 0.5 MG tablet 1 (one) time each day at the same time (Patient taking differently: Daily as needed) Calcium Citrate-Vitamin D 250-5 MG-MCG tablet Take 1 tablet by mouth in the morning. furosemide (Lasix) 40 MG tablet Take by mouth 2 (two) times a day. mycophenolate (CellCept) 500 MG tablet Take 3 tablets (1,500 mg) by mouth in the morning and 3 tablets (1,500 mg) before bedtime. 3 tabs. 540 tablet 3 norethindrone-ethinyl estradiol (Nortrel 1/35, 28,) 1-35 MG-MCG tablet Take 1 tablet by mouth Daily 84 tablet 3 oxygen (O2) gas Inhale continuously. oxygen (O2) gas pantoprazole (ProtoNix) 40 MG EC tablet Take 1 tablet (40 mg) by mouth in the morning. Take before meals. 90 tablet 3 potassium chloride CR (K-Tab) 20 MEQ ER tablet Take by mouth Daily. rosuvastatin (Crestor) 10 MG tablet Take 1 tablet (10 mg) by mouth Daily 90 tablet 3 sildenafil (Revatio) 20 MG tablet Take 1 tablet by mouth in the morning and 1 tablet in the evening and 1 tablet before bedtime. spironolactone (Aldactone) 25 MG tablet 1 tablet Orally treprostinil (Remodulin) 1 mg/mL as directed per pump 24hrs a day. No current facility-administered medications for this visit. Allergies Allergen Reactions Winrevair [Sotatercept-Csrk] Shortness of breath Past Surgical History: Procedure Laterality Date CERVICAL BIOPSY W/ LOOP ELECTRODE EXCISION 2007 Abnormal Pap smear CHEST TUBE INSERTION 03/01/2019 CHEST TUBE INSERTION 04/2019 COLPOSCOPY 09/27/2024 OTHER SURGICAL HISTORY Procedure ongoing : Polymyositis , Pumonary Fibrosis RETINAL DETACHMENT SURGERY Left 05/2023 SKIN CANCER EXCISION 07/2018 melanoma removed-back Past Medical History: Diagnosis Date Abnormal Pap smear of cervix 09/08/2023 HPV + Abnormal Pap smear of cervix 09/19/2024 LGSIL, HPV pos Bilateral leg edema 2019 gave lasix ,4 night stay Cataract 08/10/2023 Esophageal reflux Neuromuscular disorder (HCC) 09/03/2000 Obesity Osteoporosis Unspecified Polymyositis (HCC) Pulmonary fibrosis (HCC) Pulmonary hypertension (HCC) Recurrent spontaneous pneumothorax 04/24/2019 ROS See HPI EXAM GENERAL EXAMINATION alert oriented well developed, well nourished. HEAD: normocephalic atraumatic. EYES: sclera anicteric. HEART: regular rate and rhythm. LUNGS: clear to auscultation bilaterally. Oxygen. 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 1 pelvic prolapse. RECTAL:normal tone , no masses palpable , only small external hemorrhoids. EXTREMITIES no edema. NEUROLOGIC: alert and oriented. PSYCH: cooperative with exam. ICD-10-CM 1. LGSIL of cervix of undetermined significance R87.612 IGP, APT HPV,RFX 16/18,45 2. HPV (human papilloma virus) infection B97.7 IGP, APT HPV,RFX 16/18,45 Entered by Chiquis Mitchell MA acting as scribe for Dr. Gennaro Londono. Signature Chiquis Mitchell MA Date 04/03/25 . Time 9:44 AM . The documentation recorded by the scribe accurately reflects the service(s) I personally performed and the decisions I made. Signature Monty Londono D.O. Date 04/03/25 Time 5:00PM. documented in this encounter [facility] 11-28-2024 Evaluation note Diagnosis Onset Date Resolution Polymyositis acute November 28, 2024 1:37pm Pulmonary hypertension acute Ap ril 2024 1:37pm ILD (interstitial lung disease) inactive November 28, 2024 1:37pm [facility] Work Phone: 1(926) 782-633402-20-2025 Consult note Author Son Chávez [facility] Note Date/Time October 05, 2024 2:47pm [facility] ENTER [address] [place], [place] [id number] Pulmonology Consult Note Signed Patient: Flash Irving MR#: [id number] : 1975 Acct:[id number] Age/Sex: 49 / F Adm Date: 5 Loc: Room: [address] [place] [address] Type: ADM INOo Attending Dr: Paddy Wiggins MD Copies to: MD Jabari Gabriel DO Rahul Prasad, MD~ HPI Date/Time of Consultation: Date of Service: 10/05/2024 Time of Service: 14:41 Consulting Provider: Son Chávez Requesting Provider: Paddy Wiggins Reason for Consult: Pulmonary fibrosis and shortness of breath History of Present Illness History of present illness: Ms. Irving is a 49 year old female with a past medical history of interstitial lung disease, pulmonary hypertension, on remodulin pump and sildenafil, she uses4 to 5 L at rest and 6 with exertion, following with Dr. Santos as well as community health specialist in [facility], presented to [facility] ER with chest discomfort, feeling flushed and short of breath. Apparently the patient was at work and had walked to the restroom's and noted that she is getting more short of breath and with some chest tightness. As she walked back to her desk she became significantly flushed with worsening symptomsand has EMS were called. She was brought into the emergency room with her symptoms appear to have subsided slowly over about an hour but continues to havemild chest discomfort in the retrosternal area and radiating to the back along with slight increase in her baseline shortness of breath and nonproductive cough. She denies any fever or chills. She has been compliant with her medications. She lives with her sister has been having cold-like symptoms for about a week. Review of Systems Review of Systems All other systems reviewed & are negative unless noted below or in HPI [facility] Medical History (Updated 10/05/24 @ 14:45 by Son Chávez MD) Pulmonary hypertension Oxygen dependent 5L GERD (gastroesophageal reflux disease) Heart failure Collapsed lung x2 2019 ILD (interstitial lung disease) Melanoma Polymyositis Pulmonary fibrosis Surgical History H/O detached retina repair left eye History of cardiac catheterization H/O melanoma excision Family History (Updated 04/13/24 @ 10:57 by April Curry RN) Mother Diabetes Hypertension Father Heart disease Social History Smoking Status: Former smoker Tobacco Type: cigarettes Substance Use Type: None Substance Abuse Comment: 1 beer a day at dinner Meds Medications and Allergies Allergies No Known Allergies Allergy (Verified 04/13/24 10:39) Home Medications mycophenolate mofetil 500 mg tablet (CellCept) 1,000 mg PO TID pulmonary fibrosis 03/01/19 [History Confirmed 10/04/24] norethindrone 1 mg-ethinyl estradiol 35 mcg tablet (Nortrel) 1 tab PO QAM 10/12/23 [History Confirmed 10/04/24] pantoprazole 40 mg tablet,delayed release 40 mg PO QAM 10/12/23 [History Confirmed 10/04/24] sildenafil (pulm.hypertension) 20 mg tablet 20 mg PO TID 10/12/23 [History Confirmed 10/04/24] treprostinil sodium 10 mg/mL injection solution (Remodulin) See Rx Instructions continuous subcutaneous infusion CONT 10/12/23 [History Confirmed 10/04/24] Oxygen 03/07/24 [History Confirmed 10/04/24] prednisone 10 mg tablet 10 mg PO QAM 03/07/24 [History Confirmed 10/04/24] furosemide 40 mg tablet (Lasix) 40 mg PO QAM 04/13/24 [History Confirmed 10/04/24] potassium chloride 20 mEq tablet,extended release 20 meq PO QAM 04/13/24 [History Confirmed 10/04/24] alprazolam 0.5 mg tablet (Xanax) 0.125 mg PO DAILY PRN anxiety 05/06/24 [History Confirmed 10/04/24] rosuvastatin 10 mg tablet 10 mg PO DAILY 10/04/24 [History Confirmed 10/04/24] Exam Physical Exam Vital Signs: Temp Pulse Resp BP Pulse Ox O2 Del Method O2 Flow Rate 98.0 F 95 20 121/73 98 Nasal Cannula 5 10/05/24 11:55 10/05/24 11:55 10/05/24 11:55 10/05/24 11:55 10/05/24 11:55 10/05/24 11:55 10/05/24 11:55 Narrative: General: Awake and alert, appears in minimal respiratory distress HEENT: Head normocephalic atraumatic. Neck: Supple. Pulmonary: Good breath sounds to both lung domínguez with bibasilar crackles. No wheezing. Cardiovascular: Regular rate and rhythm. No murmurs Abdomen: Soft, nontender and nondistended. Extremities: No edema. Skin: No lesions ASSISTANT DIRECTOR OF SECURITY: Awake, alert and oriented x 3 follows simple commands. Psych: Appears appropriate without signs of anxiety or depression. Results - Pulmonology Intake and Output I&O - Last 24 Hours: Intake & Output 10/04/24 10/05/24 10/05/24 23:59 07:59 15:59 Intake Total 1290 / 1290 Balance 1290 / 1290 Weight 67.7 kg 71.5 kg Labs 10/04/24 12:50 10/05/24 05:39 Microbiology Micro: 10/04/24 16:13 Respiratory Panel (PCR) - Final Nasopharyngeal Imaging and Cardiology CT scan - chest: Status: image reviewed by me (Her CT of the chest was reviewed and compared with her most recent CT. There has been no significant change in the bilateral fibrotic changes.) Assessment/Plan (1) Shortness of breath: Plan: With underlying chronic hypoxic respiratory failure on supplemental oxygen 4 to 5 L via nasal cannula at home due to underlying pulmonary fibrosis and pulmonaryhypertension. Unclear cause of her constellation of symptoms but her CT of the chest appears relatively stable, she has no fevers and her white blood cell count are within normal range. Her viral screen was negative. She is on her usual oxygen flow at 45 L via nasal cannula with saturation of 98%. At this point I see no active pulmonary issues and the patient's symptoms have been gradually improving as well, though not back to baseline. I would hold off on making any changes that point and continue with observation. Check CRP levels. If her symptoms continue to improve overnight, will likely discharge home tomorrow to follow-up as an outpatient. Plan The above plan of care was discussed with the patient and she is agreeable to this plan. Documented By: Son Chávez MD 10/05/24 1441 Signed By: <Electronically signed by Son Chávez MD> 10/05/24 1447 [facility] Work Phone: 1(610) 237-864002-20-2025 [place] [address] Pulmonology Consult Note Signed Patient: Flash Irving MR#: [id number] : 1975 Acct:[id number] Age/Sex: 49 / F Adm Date: 5 Loc: Room: [address] [place] [address] Type: ADM INOo Attending Dr: Paddy Wiggins MD Copies to: MD Jabari Gabriel DO Rahul Prasad, MD~ HPI Date/Time of Consultation: Date of Service: 10/05/2024 Time of Service: 14:41 Consulting Provider: Son Chávez Requesting Provider: Paddy Wiggins Reason for Consult: Pulmonary fibrosis and shortness of breath History of Present Illness History of present illness: Ms. Irving is a 49 year old female with a past medical history of interstitial lung disease, pulmonary hypertension, on remodulin pump and sildenafil, she uses4 to 5 L at rest and 6 with exertion, following with Dr. Santos as well as community health specialist in [facility], presented to [facility] ER with chest discomfort, feeling flushed and short of breath. Apparently the patient was at work and had walked to the restroom's and noted that she is getting more short of breath and with some chest tightness. As she walked back to her desk she became significantly flushed with worsening symptomsand has EMS were called. She was brought into the emergency room with her symptoms appear to have subsided slowly over about an hour but continues to havemild chest discomfort in the retrosternal area and radiating to the back along with slight increase in her baseline shortness of breath and nonproductive cough. She denies any fever or chills. She has been compliant with her medications. She lives with her sister has been having cold-like symptoms for about a week. Review of Systems Review of Systems All other systems reviewed & are negative unless noted below or in HPI [facility] Medical History (Updated 10/05/24 @ 14:45 by Son Chávez MD) Pulmonary hypertension Oxygen dependent 5L GERD (gastroesophageal reflux disease) Heart failure Collapsed lung x2 2019 ILD (interstitial lung disease) Melanoma Polymyositis Pulmonary fibrosis Surgical History H/O detached retina repair left eye History of cardiac catheterization H/O melanoma excision Family History (Updated 04/13/24 @ 10:57 by April Curry RN) Mother Diabetes Hypertension Father Heart disease Social History Smoking Status: Former smoker Tobacco Type: cigarettes Substance Use Type: None Substance Abuse Comment: 1 beer a day at dinner Meds Medications and Allergies Allergies No Known Allergies Allergy (Verified 04/13/24 10:39) Home Medications mycophenolate mofetil 500 mg tablet (CellCept) 1,000 mg PO TID pulmonary fibrosis 03/01/19 [HistoryConfirmed 10/04/24] norethindrone 1 mg-ethinyl estradiol 35 mcg tablet (Nortrel) 1 tab PO QAM 10/12/23 [History Confirmed 10/04/24] pantoprazole 40 mg tablet,delayed release 40 mg PO QAM 10/12/23 [History Confirmed 10/04/24] sildenafil (pulm.hypertension) 20 mg tablet 20 mg PO TID 10/12/23 [History Confirmed 10/04/24] treprostinil sodium 10 mg/mL injection solution (Remodulin) See Rx Instructions continuous subcutaneous infusion CONT 10/12/23 [History Confirmed 10/04/24] Oxygen 03/07/24 [History Confirmed 10/04/24] prednisone 10 mg tablet 10 mg PO QAM 03/07/24 [History Confirmed 10/04/24] furosemide 40 mg tablet (Lasix) 40 mg PO QAM 04/13/24 [History Confirmed 10/04/24] potassium chloride 20 mEq tablet,extended release 20 meq PO QAM 04/13/24 [History Confirmed 10/04/24] alprazolam 0.5 mg tablet (Xanax) 0.125 mg PO DAILY PRN anxiety 05/06/24 [History Confirmed 10/04/24] rosuvastatin 10 mg tablet 10 mg PO DAILY 10/04/24 [History Confirmed 10/04/24] Exam Physical Exam Vital Signs: Temp Pulse Resp BP Pulse Ox O2 Del Method O2 Flow Rate 98.0 F 95 20 121/73 98 Nasal Cannula 5 10/05/24 11:55 10/05/24 11:55 10/05/24 11:55 10/05/24 11:55 10/05/24 11:55 10/05/24 11:55 10/05/24 11:55 Narrative: General: Awake and alert, appears in minimal respiratory distress HEENT: Head normocephalic atraumatic. Neck: Supple. Pulmonary: Good breath sounds to both lung domínguez with bibasilar crackles. No wheezing. Cardiovascular: Regular rate and rhythm. No murmurs Abdomen: Soft, nontender and nondistended. Extremities: No edema. Skin: No lesions ASSISTANT DIRECTOR OF SECURITY: Awake, alert and oriented x 3 follows simple commands. Psych: Appears appropriate without signs of anxiety or depression. Results - Pulmonology Intake and Output I&O - Last 24 Hours: Intake & Output 10/04/24 10/05/24 10/05/24 23:59 07:59 15:59 Intake Total 1290 / 1290 Balance 1290 / 1290 Weight 67.7 kg 71.5 kg Labs 10/04/24 12:50 10/05/24 05:39 Microbiology Micro: 10/04/24 16:13 Respiratory Panel (PCR) - Final Nasopharyngeal Imaging and Cardiology CT scan - chest: Status: image reviewed by me (Her CT of the chest was reviewed and compared with her most recent CT. There has been no significant change in the bilateral fibrotic changes.) Assessment/Plan (1) Shortness of breath: Plan: With underlying chronic hypoxic respiratory failure on supplemental oxygen 4 to 5 L via nasal cannula at home due to underlying pulmonary fibrosis and pulmonaryhypertension. Unclear cause of her constellation of symptoms but her CT of the chest appears relatively stable, she has no fevers and her white blood cell count are within normal range. Her viral screen was negative. She is on her usual oxygen flow at 45 L via nasal cannula with saturation of 98%. At this point I see no active pulmonary issues and the patient's symptoms have been gradually improving as well, though not back to baseline. I would hold off on making any changes that point and continue with observation. Check CRP levels. If her symptoms continue to improve overnight, will likely discharge home tomorrow to follow-up as an outpatient. Plan The above plan of care was discussed with the patient and she is agreeable to this plan. Documented By: Son Chávez MD 10/05/24 144 Signed By: 10/05/24 1447 [facility]02-20-2025 Progress note Author Paddy Wiggins [facility] Note Date/Time October 05, 2024 12:19pm [facility] [address] [place] [address] Hospitalist Progress Note Signed Patient: Flash Irving MR#: [id number] : 1975 Acct:[id number] Age/Sex: 49 / F Adm Date: 5 Loc: Room: [address] [place] [address] Type: ADM INOo Attending Dr: Paddy Wiggins MD Copies to: ~ Date of Service: 10/05/2024 Subjective Subjective Narrative: This morning feels slightly improved but continues to have some L sided chest discomfort. Also notes loose bowel movements x3, not unusual for her, states hasbeen long standing and medication related. Exam Physical Exam Vital Signs: Temp Pulse Resp BP Pulse Ox O2 Del Method O2 Flow Rate 97.9 F 95 20 130/75 99 Nasal Cannula 5 10/05/24 08:00 10/05/24 08:00 10/05/24 08:00 10/05/24 08:00 10/05/24 08:00 10/05/24 10:29 10/05/24 10:29 Narrative: General: cooperative and comfortable, slightly plethoric today Orientation: alert, awake and oriented x3 Head: normal to inspection Neck: normal visual inspection Cardio: no JVD, regular rate, regular rhythm Chest palpation & inspection: normal inspection of the chest Resp Effort & Inspection: normal respiratory effort, diffuse crackles, stable on5 L O2 Abd: soft, non-tender, non-distended Extremities: Warm well perfused, no edema Objective Lab Results 10/04/24 12:50 10/05/24 05:39 Microbiology Results Microbiology 10/04/24 16:13 Nasopharyngeal Respiratory Panel (PCR) - Final Meds Allergies and Active Meds Allergies No Known Allergies Allergy (Verified 04/13/24 10:39) Active Meds: Active Medications Generic Name Dose Route Start Last Admin Trade Name Freq PRN Reason Stop Dose Admin Atorvastatin Calcium 20 mg 10/05/24 09:00 10/05/24 09:51 Atorvastatin 20 Mg Tablet PO 10/05/25 08:59 20 mg DAILY NORM Administration Enoxaparin Sodium 40 mg 10/05/24 10:00 10/05/24 09:52 Enoxaparin 40 Mg/0.4 Ml Syringe SUBCUT 10/05/25 09:59 40 mg DAILY@10 NORM Administration Furosemide 40 mg 10/05/24 09:00 10/05/24 09:51 Furosemide 40 Mg Tablet PO 10/05/25 08:59 40 mg QAM NORM Administration Mycophenolate Mofetil 1,000 mg 10/04/24 22:00 10/05/24 09:50 Mycophenolate Mofetil 250 Mg Capsule PO 10/04/25 21:59 1,000 mg TID NORM Administration Nitroglycerin 0.4 mg 10/04/24 14:09 Nitroglycerin 0.4 Mg Tab.Subl SUBLINGUAL 10/04/25 14:08 Q5M PRN Chest Pain Pom (Norethindrone- 1 tab 10/05/24 09:00 10/05/24 10:06 Ethin Estradiol [ PO 10/05/25 08:59 Not Given Nortrel 135 (28)] 1 QAM NORM -35 Mg-Mcg Tablet) Pom Treprostinil 0 mg 10/04/24 16:15 10/04/24 18:35 Sodium [Remodulin] SUBCUT 10/04/25 16:14 94 mg 10 Mg/Ml Solution CONT NORM Administration Pantoprazole Sodium 40 mg 10/05/24 07:30 10/05/24 09:51 Pantoprazole 40 Mg Tablet.Dr PO 10/05/25 07:29 Not Given DAILY.AC.BKFAST NORM Potassium Chloride 20 meq 10/05/24 09:00 10/05/24 09:51 Potassium Chloride Er 20 Meq Tab.Er.Prt PO 10/05/25 08:59 20 meq QAM NORM Administration Prednisone 10 mg 10/05/24 09:00 10/05/24 09:51 Prednisone 10 Mg Tablet PO 10/05/25 08:59 10 mg QAM NORM Administration Sildenafil Citrate 20 mg 10/04/24 22:00 10/05/24 09:51 Sildenafil Citrate 20 Mg Tablet PO 10/04/25 21:59 20 mg TID NORM Administration A&P - Hospitalist Assessment/Plan (1) Acute hypokalemia: (2) Chest pain: (3) Pulmonary fibrosis: (4) Pulmonary hypertension: Plan Flash Irving is a 49 y/o F h/o interstitial lung disease, pulmonary hypertension, on remodulin pump and sildenafil, 4 to 5 L O2 at rest and 6 with exertion, following with Dr. Santos as well as community health specialist in [facility], presented to [facility] ER from home with sudden onset shortness of breath chest discomfort, medicine called for admission. 1. Chest discomfort in the setting of ILD and recent sick contacts - In the ER, WBC 10.3, hgb 13.4, K 2.5, HsTroponin I 6, no EKG changes. CT chest showed no evidence of pneumothorax, continued L sided bullae and bilateral honeycombing. - Does endorse some congestion for the past 2 days, some sick contacts - expanded respiratory viral panel negative - Pulmonology consult given medical complexity involving remodulin pump and to assess need for echo, possible increase in steroids - possible discharge home today or tomorrow pending recommendations 2. Chronic conditions: interstitial lung disease, pulmonary hypertension, on remodulin pump and sildenafil, 4 to 5 L O2 at rest and 6 with exertion - continue home meds - pulm consult as above to determine need for adjusting prednisone - reports taking immodium approximately every other day for loose bowel movements, will resume given low concern for C.diff or infection. Diet: regular Daily Labs: CBC, BMP Lines/Drains: PIV DVT ppx: Lovenox Code status: Full Status: observation Documented By: Paddy Wiggins MD 10/05/24 1053 Signed By: <Electronically signed by Paddy Wiggins MD> 10/05/24 1219 [facility] Work Phone: 1(990) 133-185702-20-2025 [place] [id number] Hospital[place] Progress Note Signed Patient: Flash Irving MR#: [id number] : 1975 Acct:[id number] Age/Sex: 49 / F Adm Date: 5 Loc: Room: [address] [place] [address] Type: ADM INOo Attending Dr: Paddy Wiggins MD Copies to: ~ Date of Service: 10/05/2024 Subjective Subjective Narrative: This morning feels slightly improved but continues to have some L sided chest discomfort. Also notes loose bowel movements x3, not unusual for her, states hasbeen long standing and medication related. Exam Physical Exam Vital Signs: Temp Pulse Resp BP Pulse Ox O2 Del Method O2 Flow Rate 97.9 F 95 20 130/75 99 Nasal Cannula 5 10/05/24 08:00 10/05/24 08:00 10/05/24 08:00 10/05/24 08:00 10/05/24 08:00 10/05/24 10:29 10/05/24 10:29 Narrative: General: cooperative and comfortable, slightly plethoric today Orientation: alert, awake and oriented x3 Head: normal to inspection Neck: normal visual inspection Cardio: no JVD, regular rate, regular rhythm Chest palpation & inspection: normal inspection of the chest Resp Effort & Inspection: normal respiratory effort, diffuse crackles, stable on5 L O2 Abd: soft, non-tender, non-distended Extremities: Warm well perfused, no edema Objective Lab Results 10/04/24 12:50 10/05/24 05:39 Microbiology Results Microbiology 10/04/24 16:13 Nasopharyngeal Respiratory Panel (PCR) - Final Meds Allergies and Active Meds Allergies No Known Allergies Allergy (Verified 04/13/24 10:39) Active Meds: Active Medications Generic Name Dose Route Start Last Admin Trade Name Freq PRN Reason Stop Dose Admin Atorvastatin Calcium 20 mg 10/05/24 09:00 10/05/24 09:51 Atorvastatin 20 Mg Tablet PO 10/05/25 08:59 20 mg DAILY NORM Administration Enoxaparin Sodium 40 mg 10/05/24 10:00 10/05/24 09:52 Enoxaparin 40 Mg/0.4 Ml Syringe SUBCUT 10/05/25 09:59 40 mg DAILY@10 NORM Administration Furosemide 40 mg 10/05/24 09:00 10/05/24 09:51 Furosemide 40 Mg Tablet PO 10/05/25 08:59 40 mg QAM NORM Administration Mycophenolate Mofetil 1,000 mg 10/04/24 22:00 10/05/24 09:50 Mycophenolate Mofetil 250 Mg Capsule PO 10/04/25 21:59 1,000 mg TID NORM Administration Nitroglycerin 0.4 mg 10/04/24 14:09 Nitroglycerin 0.4 Mg Tab.Subl SUBLINGUAL 10/04/25 14:08 Q5M PRN Chest Pain Pom (Norethindrone- 1 tab 10/05/24 09:00 10/05/24 10:06 Ethin Estradiol [ PO 10/05/25 08:59 Not Given Nortrel (28)] 1 QAM NORM -35 Mg-Mcg Tablet) Pom Treprostinil 0 mg 10/04/24 16:15 10/04/24 18:35 Sodium [Remodulin] SUBCUT 10/04/25 16:14 94 mg 10 Mg/Ml Solution CONT NORM Administration Pantoprazole Sodium 40 mg 10/05/24 07:30 10/05/24 09:51 Pantoprazole 40 Mg Tablet.Dr NOGUEIRA 10/05/25 07:29 Not Given DAILY.AC.BKFAST NORM Potassium Chloride 20 meq 10/05/24 09:00 10/05/24 09:51 Potassium Chloride Er 20 Meq Tab.Er.Prt PO 10/05/25 08:59 20 meq QAM NORM Administration Prednisone 10 mg 10/05/24 09:00 10/05/24 09:51 Prednisone 10 Mg Tablet PO 10/05/25 08:59 10 mg QAM NORM Administration Sildenafil Citrate 20 mg 10/04/24 22:00 10/05/24 09:51 Sildenafil Citrate 20 Mg Tablet PO 10/04/25 21:59 20 mg TID NORM Administration A&P - Hospitalist Assessment/Plan (1) Acute hypokalemia: (2) Chest pain: (3) Pulmonary fibrosis: (4) Pulmonary hypertension: Plan Flash Irving is a 49 y/o F h/o interstitial lung disease, pulmonary hypertension, on remodulin pump and sildenafil, 4 to 5 L O2 at rest and 6 with exertion, following with Dr. Santos as well as community health specialist in [facility], presented to [facility] ER from homewith sudden onset shortness of breath chest discomfort, medicine called for admission. 1. Chest discomfort in the setting of ILD and recent sick contacts - In the ER, WBC 10.3, hgb 13.4, K 2.5, HsTroponin I 6, no EKG changes. CT chest showed no evidenceof pneumothorax, continued L sided bullae and bilateral honeycombing. - Does endorse some congestion for the past 2 days, some sick contacts - expanded respiratory viral panel negative - Pulmonology consult given medical complexity involving remodulin pump and to assess need for echo, possible increase in steroids - possible discharge home today or tomorrow pending recommendations 2. Chronic conditions: interstitial lung disease, pulmonary hypertension, on remodulin pump and sildenafil, 4 to 5 L O2 at rest and 6 with exertion - continue home meds - pulm consult as above to determine need for adjusting prednisone - reports taking immodium approximately every other day for loose bowel movements, will resume given low concern for C.diff or infection. Diet: regular Daily Labs: CBC, BMP Lines/Drains: PIV DVT ppx: Lovenox Code status: Full Status: observation Documented By: Paddy Wiggins MD 10/05/24 1053 Signed By: 10/05/[address] [place], [place] [id number] History and physical note Author Paddy Wiggins [facility] Note Date/Time October 04, 2024 5:08pm [facility] [address] [place] [address] Hospitalist H&P Signed Patient: Flash Irving MR#: [id number] : 1975 Acct:[id number] Age/Sex: 49 / F Adm Date: 5 Loc: Room: [address] [place] [address] Type: ADM INOo Attending Dr: Paddy Wiggins MD Copies to: DO Paddy Braun MD~ HPI DATE OF EXAMINATION: 10/04/24 CHIEF COMPLAINT: Chest Discomfort HISTORY OF PRESENT ILLNESS: Flash Irving is a 49 y/o F h/o interstitial lung disease, pulmonary hypertension,on remodulin pump and sildenafil, she uses 4 to 5 L at rest and 6 with exertion,following with Dr. Santos as well as community health specialist in [facility], presented to [facility] ER from home with sudden onset shortness of breath chest discomfort, medicine called for admission. On assessment at bedside in the emergency room, patient is resting comfortably in bed, able to speak in complete sentences, on 5 L nasal cannula. States worsened dyspnea with ambulation to bathroom this am while at work, spontaneous,progressed to chest pressure and pain with lightheadedness, near passing out. Employer called EMS, patient developed slight nausea en route. Slight off and onchest discomfort since arrival to ER, pressure not sharp pain. Some radiation toback. Has had some congestion over the past 2 days, no fevers or chills, no productive cough. Compliant with prednisone 10 mg daily, sildenafil 20 mg TID, mycophenolate 1000 mg tid. In the ER, WBC 10.3, hgb 13.4, K 2.5, HsTroponin I 6, no EKG changes. CT chest showed no evidence of pneumothorax, continued L sided bullae and bilateral honeycombing. Review of Systems Review of Systems Review of systems: Review of Systems Constitutional: No fatigue, diaphoresis, AMS Ears, Nose, Mouth, and Throat: no dysphagia Cardiovascular: no chest pain Respiratory: + shortness of breath GI: no abdominal pain, tenderness, distension : no burning with urination Musculoskeletal: no myalgias or arthralgias Neurologic: no loss of motor function [facility] Medical History (Updated 10/04/24 @ 17:02 by Paddy Wiggins MD) Pulmonary hypertension Oxygen dependent 5L GERD (gastroesophageal reflux disease) Heart failure Collapsed lung x2 2019 ILD (interstitial lung disease) Melanoma Polymyositis Pulmonary fibrosis Surgical History H/O detached retina repair left eye History of cardiac catheterization H/O melanoma excision Family History (Updated 04/13/24 @ 10:57 by April Curry RN) Mother Diabetes Hypertension Father Heart disease Social History Smoking Status: Never smoker Tobacco Type: cigarettes Substance Use Type: None Substance Abuse Comment: 1 beer a day at dinner Meds Medications and Allergies Allergies No Known Allergies Allergy (Verified 04/13/24 10:39) Home Medications mycophenolate mofetil 500 mg tablet (CellCept) 1,000 mg PO TID pulmonary fibrosis 03/01/19 [History Confirmed 10/04/24] calcium 250 mg (as citrate)-vitamin D3 5 mcg (200 unit) tablet (Citracal Regular) 1 tab PO QAM 05/08/20 [History Confirmed 05/06/24] norethindrone 1 mg-ethinyl estradiol 35 mcg tablet (Nortrel) 1 tab PO QAM 10/12/23 [History Confirmed 10/04/24] pantoprazole 40 mg tablet,delayed release 40 mg PO QAM 10/12/23 [History Confirmed 10/04/24] sildenafil (pulm.hypertension) 20 mg tablet 20 mg PO TID 10/12/23 [History Confirmed 10/04/24] treprostinil sodium 10 mg/mL injection solution (Remodulin) See Rx Instructions continuous subcutaneous infusion CONT 10/12/23 [History Confirmed 10/04/24] Oxygen 03/07/24 [History Confirmed 10/04/24] prednisone 10 mg tablet 10 mg PO QAM 03/07/24 [History Confirmed 05/06/24] furosemide 40 mg tablet (Lasix) 40 mg PO QAM 04/13/24 [History Confirmed 10/04/24] potassium chloride 20 mEq tablet,extended release 20 meq PO QAM 04/13/24 [History Confirmed 10/04/24] alprazolam 0.5 mg tablet (Xanax) 0.125 mg PO DAILY PRN anxiety 05/06/24 [History Confirmed 10/04/24] prednisone 10 mg tablet 40 mg PO DAILY #65 tabs 05/12/24 [Rx Confirmed 10/04/24] rosuvastatin 10 mg tablet 10 mg PO DAILY 10/04/24 [History Confirmed 10/04/24] Exam Physical Exam Vital Signs: Temp Pulse Resp BP Pulse Ox O2 Del Method O2 Flow Rate 98.1 F 94 20 122/78 98 Nasal Cannula 5 10/04/24 12:24 10/04/24 15:35 10/04/24 15:35 10/04/24 15:35 10/04/24 15:35 10/04/24 15:35 10/04/24 15:35 Narrative: General: cooperative and comfortable Orientation: alert, awake and oriented x3 Head: normal to inspection Neck: normal visual inspection Cardio: no JVD, regular rate, regular rhythm Chest palpation & inspection: normal inspection of the chest Resp Effort & Inspection: normal respiratory effort, diffuse crackles, stable on5 L O2 Abd: soft, non-tender, non-distended Extremities: Warm well perfused, no edema Results - Hospitalist H&P Lab Results Labs: Laboratory Last Values Corrected WBC 10.3 X10E3/uL (3.8-11.6) 10/04/24 12:50 Uncorrected WBC Count 10.3 x10E3/uL (3.8-11.6) 10/04/24 12:50 RBC 5.29 x10E6/uL (3.60-5.00) H 10/04/24 12:50 Hgb 13.4 g/dL (11.8-15.4) 10/04/24 12:50 Hct 41.0 % (34.0-46.4) 10/04/24 12:50 MCV 77.4 fl (80-100) L 10/04/24 12:50 MCH 25.4 pg (24.7-34.3) 10/04/24 12:50 MCHC 32.7 g/dL (32.0-35.0) 10/04/24 12:50 RDW 16.3 % (11.9-15.3) H 10/04/24 12:50 Plt Count 155 x10E3/uL (150-450) 10/04/24 12:50 MPV 7.4 fl (6.3-10.7) 10/04/24 12:50 Neut % (Auto) 80.2 % (.) 10/04/24 12:50 Lymph % (Auto) 11.9 % (.) 10/04/24 12:50 [place] % (Auto) 6.8 % (.) 10/04/24 12:50 Eos % (Auto) 0.7 % (.) 10/04/24 12:50 Baso % (Auto) 0.4 % (.) 10/04/24 12:50 Nucleat RBC Rel Count 0.1 /100 WBC (0-0.5) 10/04/24 12:50 Neut # (Auto) 8.2 x10E3/uL (1.8-7.7) H 10/04/24 12:50 Lymph # (Auto) 1.2 x10E3/uL (1.00-4.8) 10/04/24 12:50 [place] # (Auto) 0.7 x10E3/uL (0.0-0.8) 10/04/24 12:50 Eos # (Auto) 0.1 x10E3/uL (0.0-0.45) 10/04/24 12:50 Baso # (Auto) 0.0 x10E3/uL (0.0-0.2) 10/04/24 12:50 Monocyte Dist Width 15.95 % (0.00-20.00) 10/04/24 12:50 PHA Creatinine Clear 95.81 10/04/24 12:50 Sodium 142 mmol/L (136-145) 10/04/24 12:50 Potassium 2.5 mmol/L (3.5-5.1) L* 10/04/24 12:50 Chloride 105 mmol/L (98-107) 10/04/24 12:50 Carbon Dioxide 27.8 mmol/L (21.0-31.0) 10/04/24 12:50 Anion Gap 11.7 mEq/L (6.0-15.0) 10/04/24 12:50 BUN 11 mg/dL (7-25) 10/04/24 12:50 Creatinine 0.66 mg/dL (0.60-1.20) 10/04/24 12:50 Est GFR (CKD-EPI) > 60.0 mL/Min 10/04/24 12:50 Glucose 100 mg/dL (70-100) 10/04/24 12:50 Calcium 8.4 mg/dL (8.6-10.3) L 10/04/24 12:50 Total Bilirubin 0.6 mg/dl (0.3-1.0) 10/04/24 12:50 AST 10 U/L (13-39) L 10/04/24 12:50 ALT 8 U/L (7-52) 10/04/24 12:50 Alkaline Phosphatase 35 U/L (34-104) 10/04/24 12:50 Total Creatine Kinase 19 U/L (30-223) L 10/04/24 12:50 Troponin I High Sens 4 ng/L (0-15) 10/04/24 12:50 B-Natriuretic Peptide 24.0 pg/mL (5-100) 10/04/24 12:50 Total Protein 6.5 gm/dL (6.4-8.9) 10/04/24 12:50 Albumin 4.1 gm/dL (3.5-5.7) 10/04/24 12:50 Globulin 2.4 gm/dL 10/04/24 12:50 Albumin/Globulin Ratio 1.7 10/04/24 12:50 Assessment & Plan Assessment/Plan (1) Acute hypokalemia: (2) Chest pain: (3) Pulmonary fibrosis: (4) Pulmonary hypertension: Plan Flash Irving is a 49 y/o F h/o interstitial lung disease, pulmonary hypertension,on remodulin pump and sildenafil, 4 to 5 L O2 at rest and 6 with exertion, following with Dr. Santos as well as community health specialist in [facility], presented to [facility] ER from home with sudden onset shortness of breath chest discomfort, medicine called for admission. 1. Chest discomfort in the setting of ILD and recent sick contacts - In the ER, WBC 10.3, hgb 13.4, K 2.5, HsTroponin I 6, no EKG changes. CT chestshowed no evidence of pneumothorax, continued L sided bullae and bilateral honeycombing. - Does endorse some congestion for the past 2 days, some sick contacts - suspected viral upper respiratory tract infection, respiratory viral panel ordered - will consult pulmonology given medical complexity involving remodulin pump andto assess need for echo 2. Chronic conditions: interstitial lung disease, pulmonary hypertension, on remodulin pump and sildenafil, 4 to 5 L O2 at rest and 6 with exertion - continue home meds - pulm consult as above to determine need for adjusting prednisone Diet: regular Daily Labs: CBC, BMP Lines/Drains: PIV DVT ppx: Lovenox Code status: Full Status: observation IP vs OBS Justification Based on differential dx, clinical care plan, and risk of adverse events, if untreated, in my clinical judgement this patient requires an acute care setting as: OBSERVATION because of an expectation of an under 2 midnight stay. Estimated length of stay (# of days): 2 Documented By: Paddy Wiggins MD 10/04/24 1558 Signed By: <Electronically signed by Paddy Wiggins MD> 10/04/24 1704 [facility] Work Phone: 1(319) 422-243302-19-2025 Evaluation note* Diagnosis Onset Date Resolution Status Admit Date Acute hypokalemia acute Februar y 2024 4:23pm Chest pain acute October 04, 2024 4:23pm Pulmonary fibrosis acute Februa ry 2024 4:23pm Pulmonary hypertension acute Fe bruary 2024 4:23pm Shortness of breath acute Febru dayo 2024 4:23pm [facility] Work Phone: 1(958) 288-867702-19-2025 Evaluation note* Diagnosis Onset Date Resolution Status Admit Date Chest pain acute October 04, 2024 4:23pm Pulmonary fibrosis acute Februa ry 2024 4:23pm Pulmonary hypertension acute Fe bruary 2024 4:23pm Acute hypokalemia resolved Februar y 2024 4:23pm Shortness of breath resolved Febru dayo2024 4:23pm [facility] Work Phone: [phone]) 437-351302-19-2025 Evaluation note* Diagnosis Onset Date Resolution Status Admit Date Chest pain acute October 04, 2024 4:23pm Pulmonary fibrosis acute Februa ry 2024 4:23pm Pulmonary hypertension acute Fe bruary 2024 4:23pm Acute hypokalemia resolved ua2024 4:23pm Shortness of breath resolved Febru dayo2024 4:23pm Polymyositis acute November 28, 2024 1:37pm Pulmonary hypertension acute Ap ril 2024 1:37pm ILD (interstitial lung disease) inactive November 28, 2024 1:37pm [facility] Work Phone: 1(681) 364-838502-19-2025 [place] [address] Hospitalist H&P Signed Patient: Flash Irving MR#: [id number] : 1975 Acct:[id number] Age/Sex: 49 / F Adm Date: 5 Loc: Room: [address] [place] [address] Type: ADM INOo Attending Dr: Paddy Wiggins MD Copies to: DO Paddy Braun MD~ HPI DATE OF EXAMINATION: 10/04/24 CHIEF COMPLAINT: Chest Discomfort HISTORY OF PRESENT ILLNESS: Flash Irving is a 49 y/o F h/o interstitial lung disease, pulmonary hypertension,on remodulin pump and sildenafil, she uses 4 to 5 L at rest and 6 with exertion,following with Dr. Santos as well as community health specialist in [facility], presented to [facility] ER from home with sudden onset shortness of breath chest discomfort, medicine called for admission. On assessment at bedside in the emergency room, patient is resting comfortably in bed, able to speak in complete sentences, on 5 L nasal cannula. States worsened dyspnea with ambulation to bathroom this am while at work, spontaneous,progressed to chest pressure and pain with lightheadedness, near pa ssing out. Employer called EMS, patient developed slight nausea en route. Slight off and onchest discomfort since arrival to ER, pressure not sharp pain. Some radiation toback. Has had some congestion over the past 2 days, no fevers or chills, no productive cough. Compliant with prednisone 10 mg daily, sildenafil 20 mg TID, mycophenolate 1000 mg tid. In the ER, WBC 10.3, hgb 13.4, K 2.5, HsTroponin I 6, no EKG changes. CT chest showed no evidence of pneumothorax, continued L sided bullae and bilateral honeycombing. Review of Systems Review of Systems Review of systems: Review of Systems Constitutional: No fatigue, diaphoresis, AMS Ears, Nose, Mouth, and Throat: no dysphagia Cardiovascular: no chest pain Respiratory: + shortness of breath GI: no abdominal pain, tenderness, distension : no burning with urination Musculoskeletal: no myalgias or arthralgias Neurologic: no loss of motor function [facility] Medical History (Updated 10/04/24 @ 17:02 by Paddy Wiggins MD) Pulmonary hypertension Oxygen dependent 5L GERD (gastroesophageal reflux disease) Heart failure Collapsed lung x2 2019 ILD (interstitial lung disease) Melanoma Polymyositis Pulmonary fibrosis Surgical History H/O detached retina repair left eye History of cardiac catheterization H/O melanoma excision Family History (Updated 04/13/24 @ 10:57 by April Curry RN) Mother Diabetes Hypertension Father Heart disease Social History Smoking Status: Never smoker Tobacco Type: cigarettes Substance Use Type: None Substance Abuse Comment: 1 beer a day at dinner Meds Medications and Allergies Allergies No Known Allergies Allergy (Verified 04/13/24 10:39) Home Medications mycophenolate mofetil 500 mg tablet (CellCept) 1,000 mg PO TID pulmonary fibrosis 03/01/19 [HistoryConfirmed 10/04/24] calcium 250 mg (as citrate)-vitamin D3 5 mcg (200 unit) tablet (Citracal Regular) 1 tab PO QAM 05/08/20 [History Confirmed 05/06/24] norethindrone 1 mg-ethinyl estradiol 35 mcg tablet (Nortrel) 1 tab PO QAM 10/12/23 [History Confirmed 10/04/24] pantoprazole 40 mg tablet,delayed release 40 mg PO QAM 10/12/23 [History Confirmed 10/04/24] sildenafil (pulm.hypertension) 20 mg tablet 20 mg PO TID 10/12/23 [History Confirmed 10/04/24] treprostinil sodium 10 mg/mL injection solution (Remodulin) See Rx Instructions continuous subcutaneous infusion CONT 10/12/23 [History Confirmed 10/04/24] Oxygen 03/07/24 [History Confirmed 10/04/24] prednisone 10 mg tablet 10 mg PO QAM 03/07/24 [History Confirmed 05/06/24] furosemide 40 mg tablet (Lasix) 40 mg PO QAM 04/13/24 [History Confirmed 10/04/24] potassium chloride 20 mEq tablet,extended release 20 meq PO QAM 04/13/24 [History Confirmed 10/04/24] alprazolam 0.5 mg tablet (Xanax) 0.125 mg PO DAILY PRN anxiety 05/06/24 [History Confirmed 10/04/24] prednisone 10 mg tablet 40 mg PO DAILY #65 tabs 05/12/24 [Rx Confirmed 10/04/24] rosuvastatin 10 mg tablet 10 mg PO DAILY 10/04/24 [History Confirmed 10/04/24] Exam Physical Exam Vital Signs: Temp Pulse Resp BP Pulse Ox O2 Del Method O2 Flow Rate 98.1 F 94 20 122/78 98 Nasal Cannula 5 10/04/24 12:24 10/04/24 15:35 10/04/24 15:35 10/04/24 15:35 10/04/24 15:35 10/04/24 15:35 10/04/24 15:35 Narrative: General: cooperative and comfortable Orientation: alert, awake and oriented x3 Head: normal to inspection Neck: normal visual inspection Cardio: no JVD, regular rate, regular rhythm Chest palpation & inspection: normal inspection of the chest Resp Effort & Inspection: normal respiratory effort, diffuse crackles, stable on5 L O2 Abd: soft, non-tender, non-distended Extremities: Warm well perfused, no edema Results - Hospitalist H&P Lab Results Labs: Laboratory Last Values Corrected WBC 10.3 X10E3/uL (3.8-11.6) 10/04/24 12:50 Uncorrected WBC Count 10.3 x10E3/uL (3.8-11.6) 10/04/24 12:50 RBC 5.29 x10E6/uL (3.60-5.00) H 10/04/24 12:50 Hgb 13.4 g/dL (11.8-15.4) 10/04/24 12:50 Hct 41.0 % (34.0-46.4) 10/04/24 12:50 MCV 77.4 fl (80-100) L 10/04/24 12:50 MCH 25.4 pg (24.7-34.3) 10/04/24 12:50 MCHC 32.7 g/dL (32.0-35.0) 10/04/24 12:50 RDW 16.3 % (11.9-15.3) H 10/04/24 12:50 Plt Count 155 x10E3/uL (150-450) 10/04/24 12:50 MPV 7.4 fl (6.3-10.7) 10/04/24 12:50 Neut % (Auto) 80.2 % (.) 10/04/24 12:50 Lymph % (Auto) 11.9 % (.) 10/04/24 12:50 [place] % (Auto) 6.8 % (.) 10/04/24 12:50 Eos % (Auto) 0.7 % (.) 10/04/24 12:50 Baso % (Auto) 0.4 % (.) 10/04/24 12:50 Nucleat RBC Rel Count 0.1 /100 WBC (0-0.5) 10/04/24 12:50 Neut # (Auto) 8.2 x10E3/uL (1.8-7.7) H 10/04/24 12:50 Lymph # (Auto) 1.2 x10E3/uL (1.00-4.8) 10/04/24 12:50 [place] # (Auto) 0.7 x10E3/uL (0.0-0.8) 10/04/24 12:50 Eos # (Auto) 0.1 x10E3/uL (0.0-0.45) 10/04/24 12:50 Baso # (Auto) 0.0 x10E3/uL (0.0-0.2) 10/04/24 12:50 Monocyte Dist Width 15.95 % (0.00-20.00) 10/04/24 12:50 PHA Creatinine Clear 95.81 10/04/24 12:50 Sodium 142 mmol/L (136-145) 10/04/24 12:50 Potassium 2.5 mmol/L (3.5-5.1) L* 10/04/24 12:50 Chloride 105 mmol/L (98-107) 10/04/24 12:50 Carbon Dioxide 27.8 mmol/L (21.0-31.0) 10/04/24 12:50 Anion Gap 11.7 mEq/L (6.0-15.0) 10/04/24 12:50 BUN 11 mg/dL (7-25) 10/04/24 12:50 Creatinine 0.66 mg/dL (0.60-1.20) 10/04/24 12:50 Est GFR (CKD-EPI) > 60.0 mL/Min 10/04/24 12:50 Glucose 100 mg/dL (70-100) 10/04/24 12:50 Calcium 8.4 mg/dL (8.6-10.3) L 10/04/24 12:50 Total Bilirubin 0.6 mg/dl (0.3-1.0) 10/04/24 12:50 AST 10 U/L (13-39) L 10/04/24 12:50 ALT 8 U/L (7-52) 10/04/24 12:50 Alkaline Phosphatase 35 U/L (34-104) 10/04/24 12:50 Total Creatine Kinase 19 U/L (30-223) L 10/04/24 12:50 Troponin I High Sens 4 ng/L (0-15) 10/04/24 12:50 B-Natriuretic Peptide 24.0 pg/mL (5-100) 10/04/24 12:50 Total Protein 6.5 gm/dL (6.4-8.9) 10/04/24 12:50 Albumin 4.1 gm/dL (3.5-5.7) 10/04/24 12:50 Globulin 2.4 gm/dL 10/04/24 12:50 Albumin/Globulin Ratio 1.7 10/04/24 12:50 Assessment & Plan Assessment/Plan (1) Acute hypokalemia: (2) Chest pain: (3) Pulmonary fibrosis: (4) Pulmonary hypertension: Plan Flash Irving is a 49 y/o F h/o interstitial lung disease, pulmonary hypertension,on remodulin pump and sildenafil, 4 to 5 L O2 at rest and 6 with exertion, following with Dr. Santos as well as community health specialist in [facility], presented to [facility] ER from home with sudden onset shortness of breath chest discomfort, medicine called for admission. 1. Chest discomfort in the setting of ILD and recent sick contacts - In the ER, WBC 10.3, hgb 13.4, K 2.5, HsTroponin I 6, no EKG changes. CT chestshowed no evidence of pneumothorax, continued L sided bullae and bilateral honeycombing. - Does endorse some congestion for the past 2 days, some sick contacts - suspected viral upper respiratory tract infection, respiratory viral panel ordered - will consult pulmonology given medical complexity involving remodulin pump andto assess need for echo 2. Chronic conditions: interstitial lung disease, pulmonary hypertension, on remodulin pump and sildenafil, 4 to 5 L O2 at rest and 6 with exertion - continue home meds - pulm consult as above to determine need for adjusting prednisone Diet: regular Daily Labs: CBC, BMP Lines/Drains: PIV DVT ppx: Lovenox Code status: Full Status: observation IP vs OBS Justification Based on differential dx, clinical care plan, and risk of adverse events, if untreated, in my clinical judgement this patient requires an acute care setting as: OBSERVATION because of an expectation of an under 2 midnight stay. Estimated length of stay (# of days): 2 Documented By: Paddy Wiggins MD 10/04/24 2742 Signed By: 10/04/24 2251 [facility]02-19-2025 Radiology Diagnostic study note [facility] [place] [address] CT Scan Report Signed Patient: Flash Irving MR#: [id number] : 1975 Acct:[id number] Age/Sex: 49 / F ADM Date: 5 Loc: ER Room: Type: [facility] ER Attending Dr: Copies to: Mat Perez MD~ Ordering Provider: Mat Perez MD Date of Service: 10/04/24 CT/CT chest wo con: Rule out left pneumo CT Chest without contrast TECHNIQUE: Axial imaging with 2-D reconstruction. The CT exam was performed using one or more the following dose reduction techniques: Automated exposure control, adjustment of the MA and/or Kv according to patient size, or use of theiterative reconstruction technique. History: Assessment for left pneumothorax COMPARISON: 05/06/2024 THYROID: Unremarkable TRACHEA AND BRONCHI: Patent ESOPHAGUS: Unremarkable. HEART: Within normal limits PERICARDIAL EFFUSION: None CORONARY ARTERY CALCIFICATION: None MEDIASTINUM: No adenopathy. No pneumoperitoneum. No mediastinal hematoma. PULMONARY DUANE: No hilar mass or adenopathy is seen. THORACIC AORTA Unremarkable LUNG NODULE None LUNGS: Peripheral right lung and left basilar fibrosis/honeycombing. Similar groundglass bilateral parenchymal densities. Marked left apical emphysematous changes. PLEURAL EFFUSION: None PNEUMOTHORAX: No pneumothorax seen. CHEST WALL: No abnormality AXILLA:Unremarkable BONY STRUCTURES Intact UPPER ABDOMEN: Images of the upper abdomen are noncontributory. CT/CT chest wo con IMPRESSION: The diffuse right and left basilar fibrosis with honeycombing. Similar groundglass interstitial changes. Marked left apical emphysematous changes. No pneumothorax. Impression dictated by: Jabari Cuevas M.D.10/04/2024 2:03 PM Dictation Location: [place] [address] Transcribed By: [facility] 10/04/24 1403 Dictated By: Jabari Cuevas DO 10/04/24 1400 Signed By: 10/04/24 1403 [facility]02-04-2025 History of Present illness Narrative * Chiquis Mitchell MA - 09/19/2024 8:45 AM EST Images from the original note were not included. Gennaro Londono DO Obstetrics and Gynecology Flash Irving 1975 09/19/24 [id number] Yearly Wellness Exam Chief Complaint Patient presents with Gynecologic Exam LMP: 09/06/24 regular, monthly, light flow, last 3-4 days BC: Nortrel 35 - satisfied. Last pap 09-08-23 neg, HPV pos. Last mammogram 09-30-23 [facility]. Denies breast, urinary, or bowel concerns. Breast Problem Would like to discuss mom's recent diagnosis of breast cancer 07/2024, age 76. Had lumpectomy- stage 1. Meeting with oncologist, waiting for PATH to determine treatment. Visit Vitals BP 124/70 Ht 5' 2 Wt 149 lb LMP 09/06/2024 BMI 27.25 kg/m OB Status Having periods Smoking Status Former BSA 1.72 m OB History Para Term AB Living 0 0 0 0 0 0 SAB IAB Ectopic Multiple Live Births 0 0 0 0 0 Current Outpatient Medications Medication Sig Dispense Refill ALPRAZolam (Xanax) 0.5 MG tablet 1 (one) time each day at the same time Calcium Citrate-Vitamin D 250-5 MG-MCG tablet Take 1 tablet by mouth in the morning. furosemide (Lasix) 40 MG tablet Take by mouth 2 (two) times a day. mycophenolate (CellCept) 500 MG tablet Take 3 tablets (1,500 mg) by mouth in the morning and 3 tablets (1,500 mg) before bedtime. 3 tabs. 540 tablet 3 norethindrone-ethinyl estradiol (Nortrel , 28,) 1-35 MG-MCG tablet Take 1 tablet by mouth Daily84 tablet 3 oxygen (O2) gas Inhale continuously. pantoprazole (ProtoNix) 40 MG EC tablet Take 1 tablet (40 mg) by mouth in the morning. Take before meals. 90 tablet 3 potassium chloride CR (K-Tab) 20 MEQ ER tablet Take by mouth Daily. predniSONE (Deltasone) 10 MG tablet Take 1 tablet (10 mg) by mouth Daily 100 tablet 2 rosuvastatin (Crestor) 10 MG tablet Take 1 tablet (10 mg) by mouth Daily 90 tablet 2 sildenafil (Revatio) 20 MG tablet Take 1 tablet by mouth in the morning and 1 tablet in the eveningand 1 tablet before bedtime. spironolactone (Aldactone) 25 MG tablet 1 tablet Orally treprostinil (Remodulin) 1 mg/mL as directed per pump 24hrs a day. No current facility-administered medications for this visit. No Known Allergies Past Surgical History: Procedure Laterality Date CERVICAL BIOPSY W/ LOOP ELECTRODE EXCISION 2007 Abnormal Pap smear CHEST TUBE INSERTION 03/01/2019 CHEST TUBE INSERTION 04/2019 OTHER SURGICAL HISTORY Procedure ongoing : Polymyositis , Pumonary Fibrosis RETINAL DETACHMENT SURGERY Left 05/2023 SKIN CANCER EXCISION 07/2018 melanoma removed-back Past Medical History: Diagnosis Date Abnormal Pap smear of cervix 09/08/2023 HPV + Bilateral leg edema 2019 gave lasix ,4 night stay Cataract 08/10/2023 Esophageal reflux Neuromuscular disorder ([facility]/HCC) 09/03/2000 Obesity Osteoporosis ([facility]) Unspecified Polymyositis ([facility]) Pulmonary fibrosis ([facility]) Pulmonary hypertension ([facility]) Recurrent spontaneous pneumothorax 04/24/2019 ROS Const: Denies appetite change, fever, chills. Allergy: Denies medication reaction. Ocular: Denies visual acuity change. ENT: Denies hearing change. Endoc: Denies weight loss. Resp: Denies dyspnoea, wheezing. Cardiac: Denies angina, palpitations. GI: Denies nausea, vomiting. Haem: Denies bleeding. : Denies incontinence. MSK: Denies arthralgias, joint oedema. Derm: Denies rash, hair loss. Neuro: Denies ataxia, tremor. Also see HPI for elements of ROS documented therein and for details of positive findings, which shall supersede the foregoing. EXAM GENERAL EXAMINATION alert oriented well developed, well nourished. On nasal oxygen. HEAD: normocephalic atraumatic. EYES: sclera anicteric. EARS: no obvious hearing deficit. NECK/THYROID: neck supple no cervical lymphadenopathy no thyromegaly. LYMPH NODES: no axillary, supraclavicular or inguinal adenopathy. SKIN: warm and dry. HEART: regular rate and rhythm. LUNGS: clear to auscultation bilaterally. CHEST:axillary nodes grossly normal. BREASTS:no masses palpable bilaterally, normal nipples bilaterally - everted - fatty replaced - dense - well supported- axilla negative. ABDOMEN: soft, nontender, nondistended, no masses palpable. BACK: no costovertebral angle tenderness, no obvious scoliosis/kyphosis. 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 1 pelvic prolapse. RECTAL:normal tone , no masses palpable , only small external hemorrhoids. EXTREMITIES no edema. NEUROLOGIC: alert and oriented. PSYCH: cooperative with exam. ICD-10-CM 1. Encounter for gynecological examination without abnormal finding Z01.419 Pelvic and breast exam completed. Findings of today's exam discussed with the patient. Continue MSBE. Ca/Vit D recommendations reviewed with the patient. The patient is to contact the office with anychanges to her gynecological condition or any changes with breast or bleeding. The patient is to return in 1 year or as needed 2. Screening for malignant neoplasm of cervix Z12.4 IGP, APT HPV,RFX 16/18,45 Thinprep collected. Will notify patient if results are abnormal. 3. Breast cancer screening by mammogram Z12.31 Bilateral screening mammogram with tomosynthesis Screening mammogram ordered. Patient to call and schedule. 4. Encounter for surveillance of contraceptive pills Z30.41 norethindrone- ethinyl estradiol (Nortrel 1/35, 28,) 1-35 MG-MCG tablet Tolerating well. Discussed Mother diagnosis. Educated on BRCA gene testing. Entered by Chiquis Mitchell MA acting as scribe for Dr. Gennaro Londono. Signature Chiquis Mitchell MA Date 09/19/24 . Time 8:39 AM . The documentation recorded by the scribe accurately reflects the service(s) I personally performed and the decisions I made. Signature Monty LondonoDKarina. Date 09/19/24 Time 5:00PM. documented in this encounterMissouri Baptist Medical [id number] History of Present illness Narrative* Jc Astudillo NP - 08/15/2024 11:00 AM EST Images from the original note were not included. Flash Irving is a 49 y.o. female presents with chief complaint of 3 month follow up (Pt. Is here for 3 month follow up and review labs. Pt. States she has had shortness of breath.) HPI: HPI History of Present Illness The patient presents for a routine visit. She reports an increase in her shortness of breath, particularly on damp days. She has been monitoring her oxygen saturation at home, which has consistently ranged between 91 and 94 over the past twoweeks. She occasionally experiences wheezing and a dry cough but does not produce any sputum. She has been advised by Dr. Santos to increase her prednisone dosage if her shortness of breath worsens. She has previously undergone a steroid tapering regimen. 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 Santos. She is currently on a regimen of furosemide twice daily, CellCept, pantoprazole, potassium, and prednisone 10 mg daily. She is not currently on any cholesterol-lowering medication. She reports no presence of blood in her stools. She has not yet undergone a colonoscopy. She reports normal bowel and bladder function, with no abdominal pain or changes in appetite. She also reports no chest pain or palpitations. She takes her Lasix dose at 6:30 AM and the second dose around dinner time. She has not noticed any fluid retention in her legs. MEDICATIONS Furosemide, CellCept, pantoprazole, potassium, prednisone. I have reviewed and reconciled the history and medication list with the patient today. HISTORIES: PAST MEDICAL HISTORY: Past Medical History: Diagnosis Date Abnormal Pap smear of cervix Bilateral leg edema 2019 gave lasix ,4 night stay Cataract 08/10/2023 Esophageal reflux Neuromuscular disorder (CMS/HCC) 09/03/2000 Obesity Osteoporosis (CMS/HCC) Unspecified Polymyositis (CMS/HCC) Pulmonary fibrosis (CMS/HCC) Pulmonary hypertension (CMS/HCC) Recurrent spontaneous pneumothorax 04/24/2019 SURGICAL HISTORY: Past Surgical History: Procedure Laterality Date CERVICAL BIOPSY W/ LOOP ELECTRODE EXCISION 2007 Abnormal Pap smear CHEST TUBE INSERTION 03/01/2019 CHEST TUBE INSERTION 04/2019 OTHER SURGICAL HISTORY Procedure ongoing : Polymyositis , Pumonary Fibrosis RETINAL DETACHMENT SURGERY Left 05/2023 SKIN CANCER EXCISION 07/2018 melanoma removed-back SOCIAL HISTORY: Social History Tobacco Use Smoking status: Former Current packs/day: 0.00 Average packs/day: 0.5 packs/day for 10.0 years (5.0 ttl pk-yrs) Types: Cigarettes Start date: 08/16/1990 Quit date: 08/16/2000 Years since quittin.0 Passive exposure: Past Smokeless tobacco: Never Tobacco comments: Ex- moderate cigarette smoker (10-19/day) Substance Use Topics Alcohol use: Yes Alcohol/week: 2.0 - 6.0 standard drinks of alcohol Types: 2 - 6 Standard drinks or equivalent per week Comment: Caffeine: 1-2 cups/day coffee Drug use: Never Depression: Not at risk (09/08/2023) PHQ-2 PHQ-2 Score: 0 FAMILY HISTORY: Family History Problem Relation Name Age of Onset Diabetes Mother Jj Mcfadden Cancer Maternal Grandmother Janine Holliday Kidney disease Other Maternal Side Kidney disease Mother's Sister Carlene Holliday Kidney disease Mother's Brother Jian Holliday MEDICATIONS: Current Outpatient Medications Medication Instructions ALPRAZolam (Xanax) 0.5 MG tablet Every 24 hours Calcium Citrate-Vitamin D 250-5 MG-MCG tablet 1 tablet, Daily RT furosemide (Lasix) 40 MG tablet 2 times daily mycophenolate (CELLCEPT) 1,500 mg, Oral, 2 times daily, 3 tabs Nortrel 1/35, 28, 1-35 MG-MCG tablet 1 tablet, Oral, Daily oxygen (O2) gas Continuous pantoprazole (PROTONIX) 40 mg, Oral, Daily before breakfast potassium chloride CR (K-Tab) 20 MEQ ER tablet Every morning predniSONE (DELTASONE) 10 mg, Oral, Daily sildenafil (Revatio) 20 MG tablet 1 tablet, 3 times daily spironolactone (Aldactone) 25 MG tablet 1 tablet Orally treprostinil (Remodulin) 1 mg/mL as directed per pump 24hrs a day. ALLERGIES: No Known Allergies PHYSICAL EXAM: Visit Vitals BP 110/64 Pulse 102 Wt 150 lb SpO2 (!) 89% BMI 27.44 kg/m OB Status Having periods Smoking Status Former BSA 1.72 m BP Readings from Last 3 Encounters: 08/15/24 110/64 05/15/24 118/78 12/02/23 110/62 Wt Readings from Last 3 Encounters: 08/15/24 150 lb 05/15/24 155 lb 12/02/23 154 lb Physical Exam Constitutional: General: She is awake. She is not in acute distress. Appearance: She is well-developed. HENT: Head: Normocephalic. Right Ear: Tympanic membrane normal. Left Ear: Tympanic membrane normal. Nose: Nose normal. Mouth/Throat: Mouth: Mucous membranes are moist. Pharynx: Oropharynx is clear. Eyes: Extraocular Movements: Extraocular movements intact. Neck: Thyroid: No thyromegaly. Vascular: No carotid bruit. Cardiovascular: Rate and Rhythm: Normal rate and regular rhythm. Pulses: Posterior tibial pulses are 1+ on the right side and 1+ on the left side. Heart sounds: Normal heart sounds. No murmur heard. No gallop. Pulmonary: Effort: Pulmonary effort is normal. No respiratory distress. Breath sounds: Normal breath sounds. No wheezing, rhonchi or rales. Chest: Chest wall: No tenderness. Abdominal: General: Bowel sounds are normal. There is no distension. Palpations: Abdomen is soft. There is no hepatomegaly, splenomegaly or mass. Tenderness: There is no abdominal tenderness. Musculoskeletal: General: No deformity. Normal range of motion. Cervical back: Normal range of motion and neck supple. No rigidity or tenderness. Right lower leg: Edema present. Left lower leg: Edema present. Lymphadenopathy: Cervical: No cervical adenopathy. Skin: General: Skin is warm and dry. Neurological: Mental Status: She is alert and oriented to person, place, and time. Motor: No weakness. Gait: Gait is intact. Psychiatric: Mood and Affect: Mood normal. Mood is not anxious or depressed. Behavior: Behavior is cooperative. Thought Content: Thought content normal. Cognition and Memory: Cognition normal. Judgment: Judgment normal. Results Laboratory Studies Total cholesterol was 233. HDL was 58. Triglycerides were 106. LDL cholesterol increased from 118 to 154. TSH was normal at 1.29. Hemoglobin and hematocrit are normal. MCV was down by 1.79. Potassiumwas low at 3.3. CO2 level was just above the high line. ASSESSMENT AND PLAN: Assessment & Plan 1. ILD (interstitial lung disease) (CMS/[facility]) (Primary) - predniSONE (Deltasone) 10 MG tablet; Take 4 tablets (40 mg) by mouth Daily for 3 days, THEN 3 tablets (30 mg) Daily for 3 days, THEN 2 tablets (20 mg) Daily for 3 days, THEN 1 tablet (10 mg) Daily for 3 days. Dispense: 30 tablet; Refill: 0 -Her oxygen saturation levels have been consistently between 91 and 94 over the past two weeks, which is slightly lower than her usual range. She reports occasional wheezing and a dry cough but no productive cough. A prescription for a steroid taper has been provided, to be used as needed. She is advised to continue her current medications, including furosemide 40 mg twice a day, CellCept, pantoprazole, potassium, and prednisone 10 mg daily. She is instructed to take her second dose of Lasix around 1 or 2 PM, along with her second dose of potassium, to avoid nocturnal diuresis. 2. Pulmonary fibrosis (CMS/HCC) -as above -follows at [facility] with pulmonology 3. 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 Mixed hyperlipidemia (CMS/HCC) - rosuvastatin (Crestor) 10 MG tablet; Take 1 tablet (10 mg) by mouth Daily Dispense: 90 tablet; Refill: 2 - Lipid panel; Future -Her LDL cholesterol level has increased from 118 in November 2023 to 154, which may be attributed to dietary habits. She is advised to adopt a Mediterranean diet, rich in fish, chicken, and vegetables.A prescription for Crestor 10 mg has been provided, to be taken every other day. A follow-up lipid panel will be conducted in 6 months to assess the effectiveness of the medication. 5. Bilateral leg edema - Comprehensive metabolic panel; Future 6. Medication management - HEMOGRAM CBC WITHOUT DIFF ([facility]); Future 7. Hypokalemia Her potassium level is low at 3.3, which can predispose her to arrhythmias. She is currently takingpotassium 20 mEq once a day. She is advised to increase her potassium intake to 20 mEq twice a day to achieve a target potassium level of around 4.2 to 4.3. 8. Health maintenance. Her TSH was normal at 1.29. Her CBC looked good, with normal hemoglobin and hematocrit levels. MCV was slightly down by 1.79. She reports no blood in her stools and no signs of anemia. She is advisedto consider a Cologuard test for colorectal cancer screening, as she has not had a colonoscopy. Follow-up The patient is scheduled for a follow-up visit in 6 months. documented in this encounterMissouri Baptist Medical [id number] NoteHNO ID: [id number] Author: SHUBHAM KNOX MD Service: ? Author Type: Physician Type: Progress Notes Filed: 08/02/2024 09:28 Note Text: S/p TORIC CE/IOL right eye 07/04/2024 S/p CE/IOL left eye 06/20/2024 Doing well IOP good Postop gtts taper discussed (Fridays) Vision LEFT EYE limited by prior RD and MH, but a nice improvement She's very pleased with result and ok with OTC readers Yearly with optometry (Dr. Garcia in [place], in [place]) I have confirmed and edited as necessary the relevant ophthalmic history, ROS, and the neuro exam findings as obtained by others. I have seen and examined this patient. I have discussed the case and the management of this patient's care with the Resident/Fellow, if applicable. I also have reviewed and agree with the assessment and plan as stated above and agree with all of its relevant components. Shubham Knox MD August 02, 2024 9:26 [facility]12-18-2024 History of Present illness Narrative* Shubham Knox MD - 08/02/2024 9:25 AM EST S/p TORIC CE/IOL right eye 07/04/2024 S/p CE/IOL left eye 06/20/2024 Doing well IOP good Postop gtts taper discussed (Fridays) Vision LEFT EYE limited by prior RD and MH, but a nice improvement She's very pleased with result and ok with OTC readers Yearly with optometry (Dr. Garcia in [place], in [place]) I have confirmed and edited as necessary the relevant ophthalmic history, ROS, and the neuro exam findings as obtained by others. I have seen and examined this patient. I have discussed the case and the management of this patient's care with the Resident/Fellow, if applicable. I also have reviewed and agree with the assessment and plan as stated above and agree withall of its relevant components. Shubham Knox MD August 02, 2024 9:26 AM documented in [facility] Telephone encounter Note * Telephone Encounter - Emilia Dietz - 07/24/2024 8:47 AM EST Letter sent out on 07/24/24 to reschedule due to provider out of office. [facility] [id number] Miscellaneous Notes* Telephone Encounter - Emilia Dietz - 07/24/2024 8:47 AM EST Letter sent out on 07/24/24 to reschedule due to provider out of office. documented in this encounterMissouri Baptist Medical [id number] Telephone encounter Note* Telephone Encounter - Carlene Youngblood LPN - 07/17/2024 3:26 PM EST Pt requesting a refill on Prednisone. I don't see that we have [id number] Miscellaneous Notes* Telephone Encounter - Carlene Youngblood LPN - 07/17/2024 3:26 PM EST Pt requesting a refill on Prednisone. I don't see that we have ever filled it for it documented in this encounterMissouri [facility] [id number] NoteHNO ID: [id number] Author: SHUBHAM KNOX MD Service: ? Author Type: Physician Type: Progress Notes Filed: 07/12/2024 10:27 Note Text: S/p TORIC CE/IOL right eye 07/04/2024 S/p CE/IOL left eye 06/20/2024 Doing well IOP good Postop gtts taper discussed (Fridays) Vision LEFT EYE limited by prior RD and MH, but a nice improvement I have confirmed and edited as necessary the relevant ophthalmic history, ROS, and the neuro exam findings as obtained by others. I have seen and examined this patient. I have discussed the case and the management of this patient's care with the Resident/Fellow, if applicable. I also have reviewed and agree with the assessment and plan as stated above and agree with all of its relevant components. Shubham Knox MD July 12, 2024 10:26 [facility]11-27-2024 History of Present illness Narrative* Shubham Knox MD - 07/12/2024 10:26 AM EST S/p TORIC CE/IOL right eye 07/04/2024 S/p CE/IOL left eye 06/20/2024 Doing well IOP good Postop gtts taper discussed (Fridays) Vision LEFT EYE limited by prior RD and MH, but a nice improvement I have confirmed and edited as necessary the relevant ophthalmic history, ROS, and the neuro exam findings as obtained by others. I have seen and examined this patient. I have discussed the case and the management of this patient's care with the Resident/Fellow, if applicable. I also have reviewed and agree with the assessment and plan as stated above and agree withall of its relevant components. Shubham Knox MD July 12, 2024 10:26 AM documented in this encounterL[facility]11-[facility]-2024 NoteHNO ID: [id number] Author: SHUBHAM KNOX MD Service: ? Author Type: Physician Type: Progress Notes Filed: 07/05/2024 13:06 Note Text: S/p TORIC CE/IOL right eye 07/04/2024 S/p CE/IOL left eye 06/20/2024 Doing well IOP good Postop gtts taper discussed Vision LEFT EYE limited by prior RD and MH, but a nice improvement I have confirmed and edited as necessary the relevant ophthalmic history, ROS, and the neuro exam findings as obtained by others. I have seen and examined this patient. I have discussed the case and the management of this patient's care with the Resident/Fellow, if applicable. I also have reviewed and agree with the assessment and plan as stated above and agree with all of its relevant components. Shubham Knox MD July 05, 2024 1:05 [facility]11-20-2024 History of Present illness Narrative* Shubham Knox MD - 07/05/2024 1:05 PM EST S/p TORIC CE/IOL right eye 07/04/2024 S/p CE/IOL left eye 06/20/2024 Doing well IOP good Postop gtts taper discussed Vision LEFT EYE limited by prior RD and MH, but a nice improvement I have confirmed and edited as necessary the relevant ophthalmic history, ROS, and the neuro exam findings as obtained by others. I have seen and examined this patient. I have discussed the case and the management of this patient's care with the Resident/Fellow, if applicable. I also have reviewed and agree with the assessment and plan as stated above and agree withall of its relevant components. Shubham Knox MD July 05, 2024 1:05 PM documented in this encounterL[facility]11-06-2024 NoteHNO ID: [id number] Author: SHUBHAM KNOX MD Service: ? Author Type: Physician Type: Progress Notes Filed: 06/21/2024 11:10 Note Text: S/p CE/IOL left eye 06/20/2024 Doing well IOP good Postop gtts discussed No POW1, as long as she uses her gtts QID that should be okay until the next surgery Vision LEFT EYE limited by prior RD and MH, but a nice improvement I have confirmed and edited as necessary the relevant ophthalmic history, ROS, and the neuro exam findings as obtained by others. I have seen and examined this patient. I have discussed the case and the management of this patient's care with the Resident/Fellow, if applicable. I also have reviewed and agree with the assessment and plan as stated above and agree with all of its relevant components. Shubham Knox MD June 21, 2024 11:07 [facility]11-06-2024 History of Present illness Narrative* Shubham Knox MD - 06/21/2024 11:07 AM EST S/p CE/IOL left eye 06/20/2024 Doing well IOP good Postop gtts discussed No POW1, as long as she uses her gtts QID that should be okay until the next surgery Vision LEFT EYE limited by prior RD and MH, but a nice improvement I have confirmed and edited as necessary the relevant ophthalmic history, ROS, and the neuro exam findings as obtained by others. I have seen and examined this patient. I have discussed the case and the management of this patient's care with the Resident/Fellow, if applicable. I also have reviewed and agree with the assessment and plan as stated above and agree withall of its relevant components. Shubham Knox MD June 21, 2024 11:07 AM documented in this encounterLima [facility]10-30-2024 Instructions* Patient Instructions* Belkis Aranda PA-C - 06/14/2024 11:44 AM EDT [facility] [place] Patient Instructions for Surgery FOOD INSTRUCTIONS: NO solid food or non-clear liquids for 8 hours prior to the arrival time for your surgery. Unless you are instructed otherwise, you are allowed to drink up to 12 ounces of clear liquids (e.g. water, black tea/coffee, fruit juice without pulp, Demetria Kimberly, etc.) up until 2 hours prior to the arrival time for surgery. MEDICATION INSTRUCTIONS: Prior to Surgery: You are allowed to take Tylenol if needed until the day of surgery. Continue all medications until the night prior to surgery Stop taking sildenafil 2 days before surgery. MEDICATION INSTRUCTIONS: Day/Morning of Surgery: The following medications should be taken with sips of water: take morning medications. Tylenol, if needed for pain, can be taken on morning of surgery. Because you are going under anesthesia, you must have a responsible adult dedicated local truck driver take you home, andbe with you after surgery. You may use a ride service such as Lyft, Uber, or [employer] as longas you have a responsible adult accompanying you and taking responsibility for you. We strongly recommend a reliable adult stays with you overnight to help take care of you. If you have any questions or concerns regarding today's visit please do not hesitate to contact [facility] at [phone] or [phone], ext [phone]. Signature: Belkis Crews Date: June 14, 2024 documented in this encounterLima [facility]10-30-2024 History and physical note * Belkis Aranda PA-C - 06/14/2024 11:05 AM EDT HISTORY AND PHYSICAL EXAMINATION (IMPACT) SERVICE DATE: 06/14/2024 SERVICE TIME: 11:05 AM PRIMARY CARE PHYSICIAN: Jabari Celeste DO CHIEF COMPLAINT/HISTORY OF PRESENT ILLNESS: Ms. Irving is a 49 year old female referred to me for preoperative evaluation. My final recommendations will be communicated back to the requesting physician/surgeon by the way of the shared medicalrecord. Referring Surgeon: Dr. Shubham Knox Date of Surgery: Right eye 07/04/2024 Left eye 06/20/2024 Planned Surgery/Procedure: Phacoemulsification Posterior Intraocular lens both eyes Indication for Planned Surgery / Procedure: Cataract both eyes MAC - Hernan Refer to Assessment section for details of any comorbidities. Patient is Able to Perform the Following Physical Activity: Walk a block or two on level ground (2.75 METs) Climb a flight of stairs or walk up a hill (5.50 METs) Does chair exercises 10-15 minutes 3 times per week. Patient's functional class is II based on self-reported physical activity. Significant Anesthesia Considerations: Postop nausea/vomiting. PAST MEDICAL/SURGICAL/FAMILY/SOCIAL HISTORY PAST MEDICAL HISTORY Diagnosis Date Family history of MS (multiple sclerosis) Former smoker GERD (gastroesophageal reflux disease) ILD (interstitial lung disease) (HCC) NSIP (nonspecific interstitial pneumonia) (HCC) Polymyositis (HCC) Raynaud's phenomenon Recurrent spontaneous pneumothorax PAST SURGICAL HISTORY Procedure Laterality Date CHEMICAL PLEURODESIS FAMILY HISTORY Problem Relation Age of Onset Multiple Sclerosis Sister SOCIAL HISTORY Social History Tobacco Use Smoking status: Former Smokeless tobacco: Never MEDICATIONS/ALLERGIES Current Outpatient Medications Medication Sig Dispense Refill INV PREDNISONE 5 MG, 20 MG, OR PLACEBO CAPSULE (IRB [id number]) Take 10 capsules by mouth once daily. ergocalciferol 50,000 unit capsule (VITAMIN D2, DRISDOL) Take 1 capsule by mouth two times a week. (FOR EXAMPLE ONE CAPSULE ON WEDNESDAY AND ONE ON WEDNESDAY) FOR A TOTAL OF 8 WEEKS, WITH A MEAL 8 capsule 1 acetaminophen (TYLENOL) 325 mg tablet Take 2 tablets by mouth every 4 hours as needed. 30 tablet 0 Cholecalciferol, Vitamin D3, 2,000 unit cap 2000 international units once daily with dinner mycophenolate Mofetil (CELLCEPT) 500 mg tablet Take 2 tablets by mouth twice daily. 120 tablet 6 Norethin-Eth Estrad Triphasic (ORTHO-NOVUM , ,) 0.5/0.75/1 mg- 35 mcg per tablet Take 1 tablet by mouth once daily. ESOMEPRAZOLE MAGNESIUM (NEXIUM ORAL) Take by mouth. MULTIVITAMIN TABLET Take one(1) tablet daily. 0 0 Current Facility-Administered Medications Medication Dose Route Frequency Provider Last Rate Last Admin tropicamide 1 % 1 Drop (MYDRIACYL) 1 Drop BOTH EYES As Directed Shubham Knox MD 1 Drop at 06/14/24 09 fluorescein-benoxinate 0.3-0.4 % 1 Drop (FLURESS) 1 Drop BOTH EYES As Directed Shubham Knox MD 1 Drop at 06/14/24 09 ALLERGIES No Known Allergies REVIEW OF SYSTEMS General: No weight loss, malaise or fevers. 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 No neurological symptoms or problems. Respiratory: COPD, Hospitalized for COPD, ILD, pulmonary fibrosis, 5 liters O2 continuous, Chronic hypoxemic respiratory failure. Denies orthopnea Cardiovascular: No history of HTN requiring medication, no history of angina, CHF, IN, cardiac surgery or stents. Denies rest pain, gangrene or revascularization/amputation for PVD. No history of cardiovascular symptoms or problems., HCL, Pulmonary HTN, LLE. Denies chest pain GI: No history of GI symptoms or problems. No history of esophageal varices, recent ascites, or ETOH greater than 2 drinks per day. : No history of UTI in past 6 weeks. No history of renal failure. Not currently on or requiring dialysis. No history of symptoms or problems. MANAGER PORT: No vaginal bleeding due to menopause and no abnormal vaginal discharge., LMP: 06/13/2024 Endocrine: No history of diabetes. Has not taken steroids within the past 30 days. No history of endocrinological symptoms or problems. Hematology: No history of bleeding or clotting disorder. No history of hematological symptoms or problems. Oncology: No history of CA metastasis, chemo within 30 days, or radiotherapy within 90 days. No history of oncological symptoms or problems., s/p melanoma of the back. Denies chemo or XRT Psych: No history of psychiatric symptoms or problems. Skin: Negative for lesions, rash, and itching. PHYSICAL EXAM VITALS: BP 96/68 Pulse 97 Ht 5' 2 (1.58m) Wt 154 lb 15.7 oz (70.3kg) SpO2 96[NC 6L]% LMP108/26/2013 BMI 28.34 kg/(m^2). General: Alert and oriented, No acute distress, Healthy appearance Skin: Normal color, no rash, no lesions. HEENT: EOM, pupils equal, round and reactive., No carotid bruits Cardiovascular: Normal S1 & S2, no rubs, murmurs or gallops. No JVD. Pulse regular. Lungs: Normal breath sounds, no wheezes or crackles., No chest deformities or chest wall tenderness. Abdomen: Soft, non-tender, no rigidity., No masses or organomegaly., Positive bowel sounds Extremities: No deformity, no edema or tenderness, no joint swelling or clubbing. Neurological: Normal cognition and motor skills. Gait normal. No weakness or sensory deficit. Pulses: Carotid and radial pulses normal +2. Pedal pulses normal +2. ASSESSMENT Ms. Irving is a 49 year old female referred to me for preoperative evaluation. Patient has the following medical comorbidities which might affect the perioperative course: (J44.9) Chronic obstructive pulmonary disease, unspecified COPD type (HCC) (J84.9) ILD (interstitial lung disease) ([facility]) (J84.10) Pulmonary fibrosis (HCC) (J96.11) Chronic hypoxemic respiratory failure ([facility]) (M33.20) Polymyositis ([facility]) Comment: managed on prednisone 10 mg, cellcept - COPD exacerbation w/hospitaliztion on 05/06/2024 at [facility] - SpO2 96% on room air - 6 minute walk test on 03/28/2024 735 feet, 40% of predicted. - Spirometry on 03/28/2024 Pulmonary mechanics suggest a mild restrictive ventilatory defect. Gas transfer is severely decreased - O2 5 liters continuous - quit smoking in 2000 - follows Dr. 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 Grade 1 diastolic dysfunction. Right atrium mildly dilated. (R60.0) Edema of both lower legs Comment: managed on Lasix - pt had potato chips last night - Pt doesn't wear compression stockings Patient's RCRI (Revised Cardiac Risk Index: CAD/CHF/Stroke or TIA/SCr>2/DM on Insulin/High Risk Surgery) score is 0 and is at low risk for major adverse cardiac events in the perioperative period. Diagnostic tests reviewed for today's visit: No new labs or tests All in Epic Reviewed labs PLAN/RECOMMENDATIONS CARDIAC: Patient is at optimal cardiac condition for scheduled surgery / procedure. PULMONARY: Patient is at optimal Pulmonary status for scheduled surgery / procedure. Patient is optimally prepared for surgery. Patient Instructions: As per patient instructions section. General Preoperative/Medication/Fasting Instructions I have discussed the above recommendations with the patient in detail, in dioni and lay terms, and provided a written summary of instructions as needed. We have discussed that no surgery is without risk, but that the goal of preoperative assessment is to optimize that risk, and that was clearly understood by the patient. I have given ample opportunity for the patient to ask questions, and answered all questions to their stated satisfaction. SIGNATURE: Belkis Crews PA-C PATIENT NAME: Flash Irving DATE: June 14, 2024 TIME: 11:05 AM [facility]10-30[facility] History and physical note* Belkis Aranda PA-C - 06/14/2024 11:05 AM EDT HISTORY AND PHYSICAL EXAMINATION (IMPACT) SERVICE DATE: 06/14/2024 SERVICE TIME: 11:05 AM PRIMARY CARE PHYSICIAN: Jabari Celeste DO CHIEF COMPLAINT/HISTORY OF PRESENT ILLNESS: Ms. Irving is a 49 year old female referred to me for preoperative evaluation. My final recommendations will be communicated back to the requesting physician/surgeon by the way of the shared medicalrecord. Referring Surgeon: Dr. Shubham Knox Date of Surgery: Right eye 07/04/2024 Left eye 06/20/2024 Planned Surgery/Procedure: Phacoemulsification Posterior Intraocular lens both eyes Indication for Planned Surgery / Procedure: Cataract both eyes MAC - Hernan Refer to Assessment section for details of any comorbidities. Patient is Able to Perform the Following Physical Activity: Walk a block or two on level ground (2.75 METs) Climb a flight of stairs or walk up a hill (5.50 METs) Does chair exercises 10-15 minutes 3 times per week. Patient's functional class is II based on self-reported physical activity. Significant Anesthesia Considerations: Postop nausea/vomiting. PAST MEDICAL/SURGICAL/FAMILY/SOCIAL HISTORY PAST MEDICAL HISTORY Diagnosis Date Family history of MS (multiple sclerosis) Former smoker GERD (gastroesophageal reflux disease) ILD (interstitial lung disease) (HCC) NSIP (nonspecific interstitial pneumonia) (HCC) Polymyositis (HCC) Raynaud's phenomenon Recurrent spontaneous pneumothorax PAST SURGICAL HISTORY Procedure Laterality Date CHEMICAL PLEURODESIS FAMILY HISTORY Problem Relation Age of Onset Multiple Sclerosis Sister SOCIAL HISTORY Social History Tobacco Use Smoking status: Former Smokeless tobacco: Never MEDICATIONS/ALLERGIES Current Outpatient Medications Medication Sig Dispense Refill INV PREDNISONE 5 MG, 20 MG, OR PLACEBO CAPSULE (IRB 23-781) Take 10 capsules by mouth once daily. ergocalciferol 50,000 unit capsule (VITAMIN D2, DRISDOL) Take 1 capsule by mouth two times a week. (FOR EXAMPLE ONE CAPSULE ON WEDNESDAY AND ONE ON WEDNESDAY) FOR A TOTAL OF 8 WEEKS, WITH A MEAL 8 capsule 1 acetaminophen (TYLENOL) 325 mg tablet Take 2 tablets by mouth every 4 hours as needed. 30 tablet 0 Cholecalciferol, Vitamin D3, 2,000 unit cap 2000 international units once daily with dinner mycophenolate Mofetil (CELLCEPT) 500 mg tablet Take 2 tablets by mouth twice daily. 120 tablet 6 Norethin-Eth Estrad Triphasic (ORTHO-NOVUM , ,) 0.5/0.75/1 mg- 35 mcg per tablet Take 1 tablet by mouth once daily. ESOMEPRAZOLE MAGNESIUM (NEXIUM ORAL) Take by mouth. MULTIVITAMIN TABLET Take one(1) tablet daily. 0 0 Current Facility-Administered Medications Medication Dose Route Frequency Provider Last Rate Last Admin tropicamide 1 % 1 Drop (MYDRIACYL) 1 Drop BOTH EYES As Directed Shubham Knox MD 1 Drop at 06/14/24 0906 fluorescein-benoxinate 0.3-0.4 % 1 Drop (FLURESS) 1 Drop BOTH EYES As Directed Shubham Knox MD 1 Drop at 06/14/24 0906 ALLERGIES No Known Allergies REVIEW OF SYSTEMS General: No weight loss, malaise or fevers. 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 No neurological symptoms or problems. Respiratory: COPD, Hospitalized for COPD, ILD, pulmonary fibrosis, 5 liters O2 continuous, Chronic hypoxemic respiratory failure. Denies orthopnea Cardiovascular: No history of HTN requiring medication, no history of angina, CHF, IN, cardiac surgery or stents. Denies rest pain, gangrene or revascularization/amputation for PVD. No history of cardiovascular symptoms or problems., HCL, Pulmonary HTN, LLE. Denies chest pain GI: No history of GI symptoms or problems. No history of esophageal varices, recent ascites, or ETOH greater than 2 drinks per day. : No history of UTI in past 6 weeks. No history of renal failure. Not currently on or requiring dialysis. No history of symptoms or problems. MANAGER PORT: No vaginal bleeding due to menopause and no abnormal vaginal discharge., LMP: 06/13/2024 Endocrine: No history of diabetes. Has not taken steroids within the past 30 days. No history of endocrinological symptoms or problems. Hematology: No history of bleeding or clotting disorder. No history of hematological symptoms or problems. Oncology: No history of CA metastasis, chemo within 30 days, or radiotherapy within 90 days. No history of oncological symptoms or problems., s/p melanoma of the back. Denies chemo or XRT Psych: No history of psychiatric symptoms or problems. Skin: Negative for lesions, rash, and itching. PHYSICAL EXAM VITALS: BP 96/68 Pulse 97 Ht 5' 2 (1.58m) Wt 154 lb 15.7 oz (70.3kg) SpO2 96[NC 6L]% LMP108/26/2013 BMI 28.34 kg/(m^2). General: Alert and oriented, No acute distress, Healthy appearance Skin: Normal color, no rash, no lesions. HEENT: EOM, pupils equal, round and reactive., No carotid bruits Cardiovascular: Normal S1 & S2, no rubs, murmurs or gallops. No JVD. Pulse regular. Lungs: Normal breath sounds, no wheezes or crackles., No chest deformities or chest wall tenderness. Abdomen: Soft, non-tender, no rigidity., No masses or organomegaly., Positive bowel sounds Extremities: No deformity, no edema or tenderness, no joint swelling or clubbing. Neurological: Normal cognition and motor skills. Gait normal. No weakness or sensory deficit. Pulses: Carotid and radial pulses normal +2. Pedal pulses normal +2. ASSESSMENT Ms. Irving is a 49 year old female referred to me for preoperative evaluation. Patient has the following medical comorbidities which might affect the perioperative course: (J44.9) Chronic obstructive pulmonary disease, unspecified COPD type (HCC) (J84.9) ILD (interstitial lung disease) ([facility]) (J84.10) Pulmonary fibrosis ([facility]) (J96.11) Chronic hypoxemic respiratory failure ([facility]) (M33.20) Polymyositis ([facility]) Comment: managed on prednisone 10 mg, cellcept - COPD exacerbation w/hospitaliztion on 05/06/2024 at [facility] - SpO2 96% on room air - 6 minute walk test on 03/28/2024 735 feet, 40% of predicted. - Spirometry on 03/28/2024 Pulmonary mechanics suggest a mild restrictive ventilatory defect. Gas transfer is severely decreased - O2 5 liters continuous - quit smoking in 2000 - follows Dr. 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 Grade 1 diastolic dysfunction. Right atrium mildly dilated. (R60.0) Edema of both lower legs Comment: managed on Lasix - pt had potato chips last night - Pt doesn't wear compression stockings Patient's RCRI (Revised Cardiac Risk Index: CAD/CHF/Stroke or TIA/SCr>2/DM on Insulin/High Risk Surgery) score is 0 and is at low risk for major adverse cardiac events in the perioperative period. Diagnostic tests reviewed for today's visit: No new labs or tests All in Epic Reviewed labs PLAN/RECOMMENDATIONS CARDIAC: Patient is at optimal cardiac condition for scheduled surgery / procedure. PULMONARY: Patient is at optimal Pulmonary status for scheduled surgery / procedure. Patient is optimally prepared for surgery. Patient Instructions: As per patient instructions section. General Preoperative/Medication/Fasting Instructions I have discussed the above recommendations with the patient in detail, in dioni and lay terms, and provided a written summary of instructions as needed. We have discussed that no surgery is without risk, but that the goal of preoperative assessment is to optimize that risk, and that was clearly understood by the patient. I have given ample opportunity for the patient to ask questions, and answered all questions to their stated satisfaction. SIGNATURE: Belkis Crews PA-C PATIENT NAME: Flash Irving DATE: June 14, 2024 TIME: 11:05 AM documented in this encounterLima [facility] Hospital10-30-2024 Nurse Note* Loren Donovan LPN - 06/14/2024 11:02 AM EDT Surgeon:Dr Knox Type of surgery:PHACOEMULSIFICATION CATARACT IMPLANT INTRAOCULAR LENS W/O ENDOSCOPIC CYCLOPHOTOCOAGULATION Date of surgery:06/20 OS 07/04 OD Identified patient by name and ?yes Pacemaker or ICD? Last pacemaker check: Reviewed medications?by provider [facility]10-30-[facility] Nurse Note* Loren Donovan LPN - 06/14/2024 11:02 AM EDT Surgeon:Dr Knox Type of surgery:PHACOEMULSIFICATION CATARACT IMPLANT INTRAOCULAR LENS W/O ENDOSCOPIC CYCLOPHOTOCOAGULATION Date of surgery:06/20 OS 07/04 OD Identified patient by name and ?yes Pacemaker or ICD? Last pacemaker check: Reviewed medications?by provider documented in this encounterLima [facility] Hospital10-30-2024 NoteHNO ID: [id number] Author: SHUBHAM KNOX MD Service: ? Author Type: Physician Type: Progress Notes Filed: 07/02/2024 14:49 Note Text: Nuclear sclerosis both eyes Regular astigmatism Myopia H/o RRD repair LEFT EYE as well as MH repair Blurry vision Cataract Presurgical Documentation Cataract: Left eye (OS) Current Visual Acuity Right Eye Distance CC 20/50 Left Eye Distance CC CF at 3' Best Corrected Vision Right Eye 20/30 Best Corrected Vision Left Eye CF 3' Glare Testing: Right Eye Off 20/30 Right Eye Low 20/40 Right Eye Medium 20/40 Right Eye High 20/60 Visual Function: Flash Irving states that the decline in vision from the cataract impedes her abilities as listed in the HPI, as well as other activities of daily living. Flash Irving has confirmed that she is no longer able to function adequately on a day-to-day basis because of her current visual condition. Further, it is my medical opinion that the cataract is the primary cause, or at least a significantly contributory cause of her visual dysfunction. With uncomplicated cataract surgery and lens implantation, it is my expectation that her visual function and quality of life will improve, significantly. The risks, benefits, alternatives, personnel and complications of cataract surgery with lens implantation were discussed with Flash Irving in detail. she appeared to understand and asked that I proceed with plans for surgery. Traditional Aim plano Left eye first Patient aware she will need glasses for astigmatism correction as well as to help her with her up close needs. 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 I have seen and examined this patient. I have discussed the case and the management of this patient's care with the Resident/Fellow, if applicable. I also have reviewed and agree with the assessment and plan as stated above and agree with all of its relevant components. Shubham Knox MD June 14, 2024 9:44 AM Addendum Called and discussed with patient options for astigmatic correction for the right eye. Patient opts for TORIC lens. Will plan accordingly I have confirmed and edited as necessary the relevant ophthalmic history, ROS, and the neuro exam findings as obtained by others. I have seen and examined this patient. I have discussed the case and the management of this patient's care with the Resident/Fellow, if applicable. I also have reviewed and agree with the assessment and plan as stated above and agree with all of its relevant components. Shubham Knox MD July 02, 2024 2:49 [facility]10-30-2024 History of Present illness Narrative* Shubham Knox MD - 06/14/2024 9:42 AM EDT Nuclear sclerosis both eyes Regular astigmatism Myopia H/o RRD repair LEFT EYE as well as MH repair Blurry vision Cataract Presurgical Documentation Cataract: Left eye (OS) Current Visual Acuity Right Eye Distance CC 20/50 Left Eye Distance CC CF at 3' Best Corrected Vision Right Eye 20/30 Best Corrected Vision Left Eye CF 3' Glare Testing: Right Eye Off 20/30 Right Eye Low 20/40 Right Eye Medium 20/40 Right Eye High 20/60 Visual Function: Flash Irving states that the decline in vision from the cataract impedes her abilities as listed in the HPI, as well as other activities of daily living. Flash Irving has confirmed that she is no longer able to function adequately on a day-to-day basisbecause of her current visual condition. Further, it is my medical opinion that the cataract is the primary cause, or at least a significantly contributory cause of her visual dysfunction. With uncomplicated cataract surgery and lens implantation, it is my expectation that her visual function and quality of life will improve, significantly. The risks, benefits, alternatives, personnel and complications of cataract surgery with lens implantation were discussed with Flash Irving in detail. she appeared to understand and asked that I proceed with plans for surgery. Traditional Aim plano Left eye first Patient aware she will need glasses for astigmatism correction as well as to help her with her up close needs. 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 I have seen and examined this patient. I have discussed the case and the management of this patient's care with the Resident/Fellow, if applicable. I also have reviewed and agree with the assessment and plan as stated above and agree withall of its relevant components. Shubham Knox MD June 14, 2024 9:44 AM [facility] History of Present illness Narrative* Jabari Salguero Roula, DO - 05/15/2024 11:15 AM EDT Images from the original note were not included. Flash Irving is a 49 y.o. female presents with chief complaint of Hospital Follow-up (Pt is here for hospital follow-up from [facility] on 05/12. Discharge summary is in her chart.) HPI: I have reviewed and reconciled the history and medication list with the patient today. PAST MEDICAL HISTORY: Past Medical History: Diagnosis Date Abnormal Pap smear of cervix Bilateral leg edema 2019 gave lasix ,4 night stay Cataract 08/10/2023 Esophageal reflux Neuromuscular disorder (CMS/HCC) 09/03/2000 Obesity Osteoporosis (CMS/HCC) Unspecified Polymyositis (CMS/HCC) Pulmonary fibrosis (CMS/HCC) Pulmonary hypertension (CMS/HCC) Recurrent spontaneous pneumothorax 04/24/2019 SURGICAL HISTORY: Past Surgical History: Procedure Laterality Date CERVICAL BIOPSY W/ LOOP ELECTRODE EXCISION 2007 Abnormal Pap smear CHEST TUBE INSERTION 03/01/2019 CHEST TUBE INSERTION 04/2019 OTHER SURGICAL HISTORY Procedure ongoing : Polymyositis , Pumonary Fibrosis RETINAL DETACHMENT SURGERY Left 05/2023 SKIN CANCER EXCISION 07/2018 melanoma removed-back SOCIAL HISTORY: Social History Tobacco Use Smoking status: Former Current packs/day: 0.00 Average packs/day: 0.5 packs/day for 10.0 years (5.0 ttl pk-yrs) Types: Cigarettes Start date: 08/16/1990 Quit date: 08/16/2000 Years since quittin.7 Passive exposure: Past Smokeless tobacco: Never Tobacco comments: Ex- moderate cigarette smoker (10-19/day) Substance Use Topics Alcohol use: Yes Alcohol/week: 2.0 - 6.0 standard drinks of alcohol Types: 2 - 6 Standard drinks or equivalent per week Comment: Caffeine: 1-2 cups/day coffee Drug use: Never Depression: Not at risk (09/08/2023) PHQ-2 PHQ-2 Score: 0 FAMILY HISTORY: Family History Problem Relation Name Age of Onset Diabetes Mother Jj Mcfadden Cancer Maternal Grandmother Janine Holliday Kidney disease Other Maternal Side Kidney disease Mother's Sister Carlene Holliday Kidney disease Mother's Brother Jian Honger MEDICATIONS: Current Outpatient Medications Medication Instructions ALPRAZolam (Xanax) 0.5 MG tablet Every 24 hours Calcium Citrate-Vitamin D 250-5 MG-MCG tablet 1 tablet, Oral, Daily RT furosemide (Lasix) 40 MG tablet Oral, 2 times daily mycophenolate (CellCept) 500 MG tablet 3 tablets, Oral, 2 times daily, 3 tabs norethindrone-ethinyl estradiol (Nortrel , 28,) 1-35 MG-MCG tablet 1 tablet, Oral, Daily oxygen (O2) gas Inhalation, Continuous pantoprazole (PROTONIX) 40 mg, Oral, Daily before breakfast potassium chloride CR (K-Tab) 20 MEQ ER tablet Oral, Every morning predniSONE (Deltasone) 10 MG tablet 1 tab Orally in am sildenafil (Revatio) 20 MG tablet 1 tablet, Oral, 3 times daily spironolactone (Aldactone) 25 MG tablet 1 tablet Orally treprostinil (Remodulin) 1 mg/mL as directed per pump 24hrs a day. ALLERGIES: No Known Allergies REVIEW OF SYMPTOMS: The ROS was neg. No chest pain or dyspnea. Denies any GI issues. Weight stable. No swellng. Denies any issues with meds. PHYSICAL EXAM: Visit Vitals BP 118/78 Pulse 105 Ht 5' 2 Wt 155 lb SpO2 96% BMI 28.35 kg/m OB Status Having periods Smoking Status Former BSA 1.75 m BP Readings from Last 3 Encounters: 05/15/24 118/78 12/02/23 110/62 10/21/23 108/60 Wt Readings from Last 3 Encounters: 05/15/24 155 lb 12/02/23 154 lb 10/21/23 153 lb Physical exam- No focal neuro signs. No enlarged Lymph Nodes, no thyromegaly/ nodules, HRRR, LCTA, benign ABD exam w/ no bruits. Carotid pulse wnl, no bruits. 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 She s spent six days in the hospital within an exacerbation of her chronic interstitial lung disease and hypoxia. Presently I know antibiotics but is taking a tapered dose of prednisone at 40 mg daily, plan to tape her weekly down to 10 mg. She s on oxygen 5 L.I did review her hospital discharge and hospital lab. I see your med list. She continues on Cell sept and needs a refill of the 1500 mg twice a day. her breast hounds are diminished throughout, but there s no wheezing and she does not use a nebulizer at all. Roman has been satisfactory and is on 40 mg daily. No Adema on exam at this time. Does not need a refill on her Ativan. Vital signs are stable. Clinically she looks like she s tolerating the prednisone without any issues. I ll see her for a recheck in three months. This note was Dictated and not read. documented in this encounterMiss[facility] [id number] Discharge summary Author Letitia Cruz [facility] May 12, 2024 12:49pm Note Date/Time May 12, 2024 12:49pm [facility] [address] [place] [address] Discharge Summary Signed Patient: Flash Irving MR#: [id number] : 1975 Acct:[id number] Age/Sex: 49 / F Adm Date: 4 Loc: Room: [address] [place] [address]: Letitia Cruz MD Copies to: DO Letitia Braun MD~ Providers Date of Discharge: 05/12/24 Discharging Provider: Letitia Cruz Primary Care Provider: Jabari Celeste Consults: 05/06/24 21:48 Consult to Pulmonology Routine Comment: Consulting Provider: Chilo Santos Reason For Exam: hypoxoa Has Provider Been Notified: Yes Date of Notification: 05/07/24 Time of Notification: 08:34 Discharge Diagnosis (1) Acute and chronic respiratory failure: (2) ILD (interstitial lung disease): (3) Pulmonary hypertension: Final Diagnosis Final Discharge Diagnosis: As above Summary Hospital Course Hospital course: Patient is a pleasant 49-year-old female with history of interstitial lung disease with severe pulmonary hypertension on mycophenolate, prednisone and treprostinil. She presented to the emergency room with complaint of increased shortness of breath with increased cough. Given her immunocompromise state she was started on broad- spectrum IV antibiotic. Also received IV steroids and IV diuretic with improvement in her symptoms. Vancomycin was discontinued after negative MRSA screening. She received 5 days of IV Zosyn. Her breathing has improved and has not been coughing as much. Given her improved symptoms she will be discharged home on tapering prednisone. She has been able to ambulate without assistance. Condition Condition at Discharge: Stable Status at Discharge Functional status at discharge: independent ambulation Overall status at discharge: patient is back to baseline Time Spent with Patient Time spent providing/coordinating discharge services (# min): 35 Discharge Plan Discharge Plan Patient Disposition: Home Activity: No Activity Restriction Diet: Low-Sodium Instructions: Know your Meds Prescriptions: New prednisone 10 mg Tablet 40 mg PO DAILY Qty: 65 0RF Taper: pred test 40 mg Daily for 7 Days and 0 Hour 30 mg Daily for 7 Days and 0 Hour 20 mg Daily for 7 Days and 0 Hour 10 mg Daily for 99 Days and 0 Hour Rx Instructions: 40 mg daily for 7 days then 30 mg daily for 7 days then 20 mg daily for 7 days and then 10 mg daily to continue Continued mycophenolate mofetil [CellCept] 500 mg Tablet 1,000 mg PO TID calcium citrate-vitamin D3 [Citracal Regular] 250 mg calcium- 200 unit Tablet 1 tab PO QAM Nortrel 1/35 (28) 1-35 mg-mcg tablet 1 tab PO QAM sildenafil (pulm.hypertension) 20 mg tablet 20 mg PO TID pantoprazole 40 mg tablet,delayed release (DR/EC) 40 mg PO QAM treprostinil sodium [Remodulin] 10 mg/mL solution See Rx Instructions continuous subcutaneous infusion CONT Patient Comments: patient has been using this pump medication since March 2022, dose has not changed within past 8 to 10 months. Tried generic treprostinil but was intolerable due to side effects. Currently uses brand name Remodulin -JR 10/12/23 Rx Instructions: 0.036-0.038 ml/hr via continuous subcutaneous infusion continuous; device syringe full of medication is switched out every other day furosemide [Lasix] 40 mg tablet 40 mg PO QAM potassium chloride 20 mEq tablet extended release 20 meq PO QAM alprazolam [Xanax] 0.5 mg tablet 0.125 mg PO DAILY PRN (Reason: anxiety) prednisone 10 mg tablet 10 mg PO QAM (DME) Oxygen Unit See Rx Instructions .Route Rx Instructions: As directed [employer] she has a concentrator 5 liters at rest 6 liters with activity Follow Up: Jabari Celeste DO [Primary Care Provider] - 05/15/24 11:15 am (Follow-up with your Primary Care Provider, call office to reschedule if needed. ) Exam Physical Exam Vital Signs: Temp Pulse Resp BP Pulse Ox O2 Del Method O2 Flow Rate 98.2 F 95 18 130/77 96 Nasal Cannula 5 05/12/24 07:51 05/12/24 12:16 05/12/24 12:16 05/12/24 12:16 05/12/24 12:16 05/12/24 12:16 05/12/24 12:16 Const Orientation: alert, awake and oriented x3 Resp Effort & Inspection: normal respiratory effort and able to speak in complete sentences Auscultation: no rales, no rhonchi and no wheezes Cardio Rate: regular rate Rhythm: regular rhythm Heart Sounds: S1 normal and S2 normal GI Palpation: soft, not firm, no guarding and nontender Neuro General: patient alert, patient awake, patient oriented x3, moves all extremities, no focal motor deficits and CN's II-XI intact bilaterally Cognition: normal cognition Speech: speech normal Extrem General: no clubbing, cyanosis or edema and no calf tenderness Diagnostic Studies Completed and Pending Studies Pending studies at discharge: 05/13/24 05:00 BMP [Basic Metabolic Panel] [CHEM] IN AM CBC [Complete Blood Count Auto Diff] Q48HR 05/15/24 05:00 CBC [Complete Blood Count Auto Diff] Q48HR 05/17/24 05:00 CBC [Complete Blood Count Auto Diff] Q48HR Labs on day of discharge: 05/12/24 06:20: PHA Creatinine Clear 110.95, Sodium 134 L, Potassium 4.2, Chloride 99, Carbon Dioxide 27.7, Anion Gap 11.5, BUN 19, Creatinine 0.58 L, EstGFR (CKD- EPI) > 60.0, Glucose 123 H, Calcium 8.3 L, Total Bilirubin 0.8, Direct Bilirubin 0.20 H, Indirect Bilirubin 0.6, AST 9 L, ALT 24, Alkaline Phosphatase 37, Total Protein 5.5 L, Albumin 3.2 L, Globulin 2.3, Albumin/Globulin Ratio 1.4 Documented By: Letitia Cruz MD 05/12/24 1247 Signed By: <Electronically signed by Letitia Cruz MD> 05/12/24 1249 [facility] Work Phone: 1(525) 951-185809-26-2024 Progress note Author Chilo Santos [facility] May 11, 2024 6:45pm Note Date/Time May 11, 2024 6:45pm [facility] [address] [place] [address] Pulmonology Progress Note Signed Patient: Flash Irving MR#: [id number] : 1975 Acct:[id number] Age/Sex: 49 / F Adm Date: 4 Loc: Room: [address] [place] [address] Type: ADM IN Attending Dr: Letitia Cruz MD Copies to: ~ Date of Service: 05/11/2024 Subjective Subjective Narrative: Patient reported abdominal comfort last evening but overall this is resolved andoverall patient's respiratory status is stable. She continues to diurese with stable renal function. She continues on 5 L of oxygen per minute nasal cannula which is her baseline. Exam Physical Exam Vital Signs: Temp Pulse Resp BP Pulse Ox O2 Del Method O2 Flow Rate 98.5 F 107 H 18 113/75 96 Room Air 5 05/11/24 17:07 05/11/24 17:07 05/11/24 12:25 05/11/24 17:07 05/11/24 17:07 05/11/24 17:07 05/11/24 16:57 Const General: cooperative Orientation: alert and awake HEENT Head: normal to inspection Ears: hearing grossly normal bilaterally and external ears normal Nose: external nose normal Face and sinus: normal facial exam Eyes Sclera: sclerae normal Neck Neck: normal visual inspection Chest Chest palpation & inspection: normal inspection of the chest Resp Effort & Inspection: normal respiratory effort Auscultation: crackles bilaterally (Right greater than left) at the base, diminished lung sounds, no rhonchi and no wheezes Cardio Rate: regular rate Rhythm: regular rhythm Heart Sounds: S1 normal, S2 normal and no murmurs GI Inspection: normal to inspection Palpation: soft and nontender Rectal Exam: deferred General: deferred Skin General: no rashes or lesions noted (Warm and dry) Extrem General: no pedal edema Objective Intake and Output I&O - Last 24 Hours: Intake & Output 05/11/24 05/11/24 05/11/24 07:59 15:59 23:59 Intake Total 600 / 1360 760 / 1360 Output Total 1200 / 2350 1150 / 2350 Balance -600 / -990 -390 / -990 Weight 160 lb 11.472 oz Labs 05/11/24 05:12 05/11/24 05:12 Assessment/Plan Assessment/Plan (1) Acute and chronic respiratory failure: (2) ILD (interstitial lung disease): (3) Pulmonary hypertension: Plan Hospital day #5 for patient with known interstitial lung disease and pulmonary hypertension on multiple immunosuppressants including prednisone at 5 mg daily and CellCept at 1000 mg 3 times daily in addition to remodulin admitted for worsening hypoxemia and increasing cough with increase in volume of sputum production without significant purulence. Cultures will be completed as of today and patient continues to diurese. I will write for steroid taper that canstart potentially tomorrow and likely patient can be discharged tomorrow if stable. Continue diuresis as renal function and hemodynamics allows. Documented By: Chilo Santos MD 1839 Signed By: <Electronically signed by MD Chilo Santos> 05/11/241844 [facility] Work Phone: 1(421) 393-334509-26-2024 Progress note Author Letitia Cruz [facility] May 11, 2024 4:15pm Note Date/Time May 11, 2024 4:15pm [facility] [address] [place] [address] Hospitalist Progress Note Signed Patient: Flash Irving MR#: [id number] : 1975 Acct:[id number] Age/Sex: 49 / F Adm Date: 4 Loc: 4P Room: [address] [place] [address] Type: ADM IN Attending Dr: Letitia Cruz MD Copies to: ~ Date of Service: 05/11/2024 Subjective Subjective Narrative: Patient noted to be in sinus tachycardia on monitor which got worse as she just walked to the bathroom. She mentioned not feeling well today and complaining ofnausea. She is also complaining of having loose bowel movement and had 4 episodes yesterday with 2 so far. Denies noticing blood in the stool. Recent stool was negative for C. difficile as well. Exam Physical Exam Vital Signs: Temp Pulse Resp BP Pulse Ox O2 Del Method O2 Flow Rate 98.3 F 118 H 18 123/84 97 Room Air 5 05/11/24 08:00 05/11/24 12:05/11/24 12:05/11/24 12:05/11/24 12:05/11/24 12:05/11/24 08:00 Const Orientation: alert, awake and oriented x3 Resp Effort & Inspection: normal respiratory effort and able to speak in complete sentences Auscultation: no rales, no rhonchi and no wheezes Cardio Rate: tachycardic Rhythm: regular rhythm Heart Sounds: S1 normal and S2 normal GI Palpation: soft, not firm, no guarding and nontender Neuro General: patient alert, patient awake, patient oriented x3, moves all extremities, no focal motor deficits and CN's II-XI intact bilaterally Cognition: normal cognition Speech: speech normal Extrem General: no clubbing, cyanosis or edema and no calf tenderness Objective Lab Results 05/11/24 05:12 05/11/24 05:12 Meds Allergies and Active Meds Allergies No Known Allergies Allergy (Verified 04/13/24 10:39) Active Meds: Active Medications Generic Name Dose Route Start Last Admin Trade Name Kaila PRN Reason Stop Dose Admin Acetaminophen 650 mg 05/06/24 21:49 05/11/24 09:06 Acetaminophen 325 Mg Tablet PO 05/06/25 21:48 650 mg Q4H PRN Administration Pain Scale 1 - 5 Albuterol 2.5 mg 05/06/24 21:49 Albuterol Neb 2.5 Mg/3 Ml Vial.Neb INHALATION 05/06/25 21:48 Q2H PRN Shortness Of Breath Alprazolam 0.125 mg 05/06/24 22:01 Alprazolam 0.25 Mg Tablet PO 11/02/24 22:00 DAILY PRN anxiety Diclofenac Sodium 2 gm 05/07/24 14:00 05/11/24 14:44 Diclofenac Sodium 1% Gel 100 Gm Tube TOPICAL 05/07/25 13:59 Not Given TID NORM Docusate Sodium 200 mg 05/06/24 21:49 Docusate 100 Mg Capsule PO 05/06/25 21:48 BID PRN Constipation Enoxaparin Sodium 40 mg 05/07/24 10:00 05/11/24 09:06 Enoxaparin 40 Mg/0.4 Ml Syringe SUBCUT 05/07/25 09:59 40 mg DAILY@1000 NORM Administration Furosemide 40 mg 05/06/24 23:00 05/11/24 09:05 Furosemide 40 Mg/4 Ml Vial IV-PUSH 05/06/25 22:59 40 mg BID@0800,1600 NORM Administration Guaifenesin 1,200 mg 05/07/24 09:00 05/11/24 09:06 Guaifenesin 600 Mg Tab.Er.12h PO 05/07/25 08:59 1,200 mg BID NORM Administration Hydralazine HCl 10 mg 05/06/24 21:49 Hydralazine 20 Mg/Ml Vial IV-PUSH 05/06/25 21:48 Q4H PRN if SBP > 185 Lidocaine 1 patch 05/08/24 09:00 05/11/24 09:07 Lidocaine 4% Adh..Patch TOPICAL 05/08/25 08:59 Not Given DAILY [facility] Loperamide HCl 2 mg 05/09/24 10:22 05/11/24 09:06 Loperamide 2 Mg Capsule PO 05/09/25 10:21 2 mg Q2H PRN Administration Diarrhea Melatonin 5 mg 05/08/24 15:19 Melatonin 5 Mg Tablet PO 05/08/25 21:59 QHS PRN insomnia Methylprednisolone Sodium Succinate 40 mg 05/10/24 21:00 05/11/24 09:06 Methylprednisolone Sod Succ/Pf 40 Mg/Ml (1ml) Vial IV-PUSH 05/10/25 20:59 40 mg Q12HR NORM Administration Mycophenolate Mofetil 1,000 mg 05/06/24 23:15 05/11/24 14:44 Mycophenolate Mofetil 250 Mg Capsule PO 05/06/25 23:14 1,000 mg TID NORM Administration Norethindrone-Ethin 1 tab 05/07/24 09:00 05/11/24 09:05 Estradiol [Nortrel 1 PO 05/07/25 08:59 1 tab /35 (28)] 1-35 Mg- QAM NORM Administration Mcg Tablet Non-Formulary Medication 0 mg 05/08/24 09:00 05/10/24 09:09 Treprostinil Sodium [Remodulin] SUBCUT 05/08/25 08:59 2.2 mg Q2D NORM Administration Oxycodone HCl 5 mg 05/07/24 11:23 05/07/24 21:45 Oxycodone Ir 5 Mg Tablet PO 5 mg Q6HR PRN Administration Severe Pain Pantoprazole Sodium 40 mg 05/07/24 09:00 05/11/24 09:06 Pantoprazole 40 Mg Tablet. PO 05/07/25 08:59 40 mg DAILY NORM Administration Sildenafil Citrate 20 mg 05/06/24 22:00 05/11/24 14:44 Sildenafil Citrate 20 Mg Tablet PO 05/06/25 21:59 20 mg TID NORM Administration A&P - Hospitalist Assessment/Plan (1) Hypokalemia: (2) Acute and chronic respiratory failure: (3) ILD (interstitial lung disease): (4) Pulmonary hypertension: Plan Patient mentioned not feeling well today with nausea and also having loose bowel movement. Noted to be in sinus tachycardia on monitor with heart rate going up to 130s. Given her diarrhea concerning for overdiuresis and will hold Lasix. She has completed 5 days of IV Zosyn might be contributing to her GI symptoms. Will increase dose of Protonix. She remains on IV steroid with plan for slow tapering. Continue bronchodilators, mycophenolate, sildenafil and treprostinil. On Lovenox for DVT prophylaxis. Documented By: Letitia Cruz MD 05/11/24 1610 Signed By: <Electronically signed by Letitia Cruz MD> 05/11/24 1619 [facility] Work Phone: 1(871) 503-285709-25-2024 Progress note Author Chilo Santos [facility] May 10, 2024 12:44pm Note Date/Time May 10, 2024 12:44pm [facility] [address] [place] [address] Pulmonology Progress Note Signed Patient: Flash Irving MR#: [id number] : 1975 Acct:[id number] Age/Sex: 49 / F Adm Date: 4 Loc: Room: [address] [place] [address] Type: ADM IN Attending Dr: Letitia Cruz MD Copies to: ~ Date of Service: 05/10/2024 Subjective Subjective Narrative: Patient reports that she is feeling better and now reports that 5 L her oxygen has been her recent baseline in terms of oxygen requirements over the course thelast several months. She denies cough and has no new respiratory complaints. She has diuresed 1600 mL over the course of the last 24 hours. Exam Physical Exam Vital Signs: Temp Pulse Resp BP Pulse Ox O2 Del Method O2 Flow Rate 98.3 F 97 20 118/76 96 Nasal Cannula 5 05/10/24 08:40 05/10/24 08:40 05/10/24 08:40 05/10/24 08:40 05/10/24 08:40 05/10/24 09:00 05/10/24 09:00 Const General: cooperative Orientation: alert and awake HEENT Head: normal to inspection Ears: hearing grossly normal bilaterally and external ears normal Nose: external nose normal Face and sinus: normal facial exam Eyes Sclera: sclerae normal Neck Neck: normal visual inspection Chest Chest palpation & inspection: normal inspection of the chest Resp Effort & Inspection: normal respiratory effort Auscultation: clear to auscultation bilaterally, crackles bilaterally (Right greater than left) at the base, diminished lung sounds, no rhonchi and no wheezes Cardio Rate: regular rate Rhythm: regular rhythm Heart Sounds: S1 normal, S2 normal and no murmurs GI Inspection: normal to inspection Palpation: soft and nontender Rectal Exam: deferred General: deferred Skin General: no rashes or lesions noted (Warm and dry) Extrem General: no pedal edema Objective Intake and Output I&O - Last 24 Hours: Intake & Output 05/09/24 05/10/24 05/10/24 23:59 07:59 15:59 Intake Total 1200 / 1950 550 / 550 Output Total 2550 / 3050 800 / 800 Balance -1350 / -1100 -250 / -250 Weight 160 lb 14.999 oz Labs 05/09/24 04:29 05/10/24 04:38 Microbiology Micro: Microbiology 3 05/08/24 11:40 MRSA Culture - Final Nares, Left No MRSA Isolated 2 Days Assessment/Plan Assessment/Plan (1) Acute and chronic respiratory failure: (2) ILD (interstitial lung disease): (3) Pulmonary hypertension: Plan Hospital day #4 for patient with known interstitial lung disease on multiple immunosuppressants including prednisone at 5 mg daily and CellCept at 500 mg 4 times daily admitted for worsening hypoxemia and increasing cough with increase in volume of sputum production without significant purulence. MRSA culture is negative with vancomycin discontinued. We will complete a 5 day course of antibiotics and discontinue. Steroids were decreased to Solu-Medrol 40 mg IV every 12 hours with next step being transition to prednisone taper. Patient continues to diurese with stable renal function and will continue diuresis as renal function and hemodynamics allows. We will continue to follow with you. Documented By: Chilo Santos MD 4 1241 Signed By: <Electronically signed by MD Chilo Santos> 05/10/24 1244 [facility] Work Phone: 1([phone]) 485-558909-25-2024 Progress note Author Letitia Cruz [facility] May 10, 2024 12:37pm Note Date/Time May 10, 2024 12:35pm [facility] [address] [place] [address] Hospitalist Progress Note Signed Patient: Flash Irving MR#: [id number] : 1975 Acct:[id number] Age/Sex: 49 / F Adm Date: 4 Loc: Room: [address] [place] [address] Type: ADM IN Attending Dr: Letitia Cruz MD Copies to: ~ Date of Service: 05/10/2024 Subjective Subjective Narrative: On examination patient was resting comfortably on 5 L oxygen. She mentioned slowly improving with decreased shortness of breath and cough. No overnight event although she did not sleep much last night which could be due to IV steroids. Exam Physical Exam Vital Signs: Temp Pulse Resp BP Pulse Ox O2 Del Method O2 Flow Rate 98.3 F 97 20 118/76 96 Nasal Cannula 5 05/10/24 08:40 05/10/24 08:40 05/10/24 08:40 05/10/24 08:40 05/10/24 08:40 05/10/24 09:00 05/10/24 09:00 Const Orientation: alert, awake and oriented x3 Resp Effort & Inspection: normal respiratory effort and able to speak in complete sentences Auscultation: no rales, no rhonchi and no wheezes Cardio Rate: regular rate Rhythm: regular rhythm Heart Sounds: S1 normal and S2 normal GI Palpation: soft, not firm, no guarding and nontender Neuro General: patient alert, patient awake, patient oriented x3, moves all extremities, no focal motor deficits and CN's II-XI intact bilaterally Cognition: normal cognition Speech: speech normal Extrem General: no clubbing, cyanosis or edema and no calf tenderness Objective Lab Results 05/09/24 04:29 05/10/24 04:38 Microbiology Results Microbiology 05/08/24 11:40 Nares, Left MRSA Culture - Final No MRSA Isolated 2 Days Meds Allergies and Active Meds Allergies No Known Allergies Allergy (Verified 04/13/24 10:39) Active Meds: Active Medications Generic Name Dose Route Start Last Admin Trade Name Freq PRN Reason Stop Dose Admin Acetaminophen 650 mg 05/06/24 21:49 05/09/24 01:54 Acetaminophen 325 Mg Tablet PO 05/06/25 21:48 650 mg Q4H PRN Administration Pain Scale 1 - 5 Albuterol 2.5 mg 05/06/24 21:49 Albuterol Neb 2.5 Mg/3 Ml Vial.Neb INHALATION 05/06/25 21:48 Q2H PRN Shortness Of Breath Alprazolam 0.125 mg 05/06/24 22:01 Alprazolam 0.25 Mg Tablet PO 11/02/24 22:00 DAILY PRN anxiety Diclofenac Sodium 2 gm 05/07/24 14:00 05/10/24 09:10 Diclofenac Sodium 1% Gel 100 Gm Tube TOPICAL 05/07/25 13:59 2 gm TID NORM Administration Docusate Sodium 200 mg 05/06/24 21:49 Docusate 100 Mg Capsule PO 05/06/25 21:48 BID PRN Constipation Enoxaparin Sodium 40 mg 05/07/24 10:00 05/10/24 09:08 Enoxaparin 40 Mg/0.4 Ml Syringe SUBCUT 05/07/25 09:59 40 mg DAILY@1000 NORM Administration Furosemide 40 mg 05/06/24 23:00 05/10/24 09:08 Furosemide 40 Mg/4 Ml Vial IV-PUSH 05/06/25 22:59 40 mg BID@0800,1600 NORM Administration Guaifenesin 1,200 mg 05/07/24 09:00 05/10/24 09:08 Guaifenesin 600 Mg Tab.Er.12h PO 05/07/25 08:59 1,200 mg BID NORM Administration Hydralazine HCl 10 mg 05/06/24 21:49 Hydralazine 20 Mg/Ml Vial IV-PUSH 05/06/25 21:48 Q4H PRN if SBP > 185 Piperacillin Sod/Tazobactam Sod 3.375 gm in 100 mls @ 25 mls/hr 05/07/24 06:00 05/10/24 06:30 Zosyn IV 25 mls/hr Q8H NORM Administration Lidocaine 1 patch 05/08/24 09:00 05/10/24 09:10 Lidocaine 4% Adh..Patch TOPICAL 05/08/25 08:59 Not Given DAILY NORM Loperamide HCl 2 mg 05/09/24 10:22 05/10/24 09:08 Loperamide 2 Mg Capsule PO 05/09/25 10:21 2 mg Q2H PRN Administration Diarrhea Melatonin 5 mg 05/08/24 15:19 Melatonin 5 Mg Tablet PO 05/08/25 21:59 QHS PRN insomnia Methylprednisolone Sodium Succinate 40 mg 05/10/24 21:00 Methylprednisolone Sod Succ/Pf 40 Mg/Ml (1ml) Vial IV-PUSH 05/10/25 20:59 Q12HR NORM Mycophenolate Mofetil 1,000 mg 05/06/24 23:15 05/10/24 09:08 Mycophenolate Mofetil 250 Mg Capsule PO 05/06/25 23:14 1,000 mg TID NORM Administration Norethindrone-Ethin 1 tab 05/07/24 09:00 05/10/24 09:09 Estradiol [Nortrel 1 PO 05/07/25 08:59 1 tab /35 (28)] 1-35 Mg- QAM NORM Administration Mcg Tablet Non-Formulary Medication 0 mg 05/08/24 09:00 05/10/24 09:09 Treprostinil Sodium [Remodulin] SUBCUT 05/08/25 08:59 2.2 mg Q2D NORM Administration Oxycodone HCl 5 mg 05/07/24 11:23 05/07/24 21:45 Oxycodone Ir 5 Mg Tablet PO 5 mg Q6HR PRN Administration Severe Pain Pantoprazole Sodium 40 mg 05/07/24 09:00 05/10/24 09:08 Pantoprazole 40 Mg Tablet.Dr NOGUEIRA 05/07/25 08:59 40 mg DAILY NORM Administration Sildenafil Citrate 20 mg 05/06/24 22:00 05/10/24 09:08 Sildenafil Citrate 20 Mg Tablet PO 05/06/25 21:59 20 mg TID NORM Administration A&P - Hospitalist Assessment/Plan (1) Hypokalemia: (2) Acute and chronic respiratory failure: (3) ILD (interstitial lung disease): (4) Pulmonary hypertension: Plan Patient's symptoms have been improving slowly as she is noticing less shortness of breath on exertion with decreased cough as well. MRSA screening culture negative for 2 days and vancomycin has been discontinued. She remains on IV Zosyn given her immunocompromise state with concern for infectious etiology. Also on slow tapering IV steroids. Receiving IV Lasix 40 mg twice daily with good urine output and stable renal function. Continue mycophenolate, sildenafil and treprostinil. Encouraged to ambulate as tolerated. On Lovenox for DVT prophylaxis. Documented By: Letitia Cruz MD 05/10/241233 Signed By: <Electronically signed by Letitia Cruz MD> 05/10/[address] [place] [address] Ctr Work Phone: 1([phone] 444-126109-24-2024 Progress note Author Chilo Santos [facility] May 09, 2024 5:14pm Note Date/Time May 09, 2024 8:53am [facility] [address] [place] [address] Pulmonology Progress Note Signed Patient: Flash Irving MR#: [id number] : 1975 Acct:[id number] Age/Sex: 49 / F Adm Date: 4 Loc: Room: [address] [place] [address] Type: ADM IN Attending Dr: Letitia Cruz MD Copies to: ~ Date of Service: 05/09/2024 Subjective Subjective Narrative: Patient feels that her respiratory status is slightly improved though she continues on 5 L of oxygen per minute nasal cannula which is beyond her baseline. She denies significant coughing or sputum production. Exam Physical Exam Vital Signs: Temp Pulse Resp BP Pulse Ox O2 Del Method O2 Flow Rate 98.4 F 96 20 117/79 97 Nasal Cannula 5 05/09/24 08:00 05/09/24 08:00 05/09/24 08:00 05/09/24 08:00 05/09/24 08:00 05/09/24 08:00 05/09/24 08:00 Const General: cooperative Orientation: alert and awake HEENT Head: normal to inspection Ears: hearing grossly normal bilaterally and external ears normal Nose: external nose normal Face and sinus: normal facial exam Eyes Sclera: sclerae normal Neck Neck: normal visual inspection Chest Chest palpation & inspection: normal inspection of the chest Resp Effort & Inspection: normal respiratory effort Auscultation: clear to auscultation bilaterally, crackles bilaterally (Right greater than left) at the base, diminished lung sounds, no rhonchi and no wheezes Cardio Rate: regular rate Rhythm: regular rhythm Heart Sounds: S1 normal, S2 normal and no murmurs GI Inspection: normal to inspection Palpation: soft and nontender Rectal Exam: deferred General: deferred Skin General: no rashes or lesions noted (Warm and dry) Extrem General: no pedal edema Objective Intake and Output I&O - Last 24 Hours: Intake & Output 05/08/24 05/09/24 05/09/24 23:59 07:59 15:59 Intake Total 600 / 1650 650 / 650 Output Total 2100 / 3100 500 / 500 Balance -1500 / -1450 150 / 150 Weight 158 lb 15.253 oz Labs 05/09/24 04:29 05/09/24 04:29 Microbiology Micro: 05/08/24 11:40 MRSA Culture - Preliminary Nares, Left No MRSA Isolated 1 Day 05/07/24 16:17 Respiratory Panel (PCR) - Final Nasopharyngeal Assessment/Plan Assessment/Plan (1) Acute and chronic respiratory failure: (2) ILD (interstitial lung disease): (3) Pulmonary hypertension: Plan Hospital day #3 for patient with known interstitial lung disease on multiple immunosuppressants including prednisone at 5 mg daily and CellCept at 500 mg 4 times daily admitted for worsening hypoxemia and increasing cough with increase in volume of sputum production without significant purulence. MRSA culture is negative x 1 day and will discontinue when negative x 2 days. We would then consider disc escalating antibiotics and completing a 5 to 7-day course. Patient continues to diurese with stable renal function and will continue diuresis as renal function and hemodynamics allows. We will continue to follow with you. Documented By: Chilo Santos MD 4 [id number] Signed By: <Electronically signed by MD Chilo Santos> 05/09/24 9882 [facility] Work Phone: 1(612) 707-818109-24-2024 Progress note Author Letitia Cruz [facility] May 09, 2024 12:59pm Note Date/Time May 09, 2024 12:34pm [facility] [address] [place] [address] Hospitalist Progress Note Signed Patient: Flash Irving MR#: [id number] : 1975 Acct:[id number] Age/Sex: 49 / F Adm Date: 4 Loc: Room: [address] [place] [address] Type: ADM IN Attending Dr: Letitia Cruz MD Copies to: ~ Date of Service: 05/09/2024 Subjective Subjective Narrative: Patient continues to improve slowly as she mention her breathing has improved. She does get some shortness of breath on exertion with cough which is not as productive. Her appetite has decreased and we discussed adding supplement. Remains on 5 L of oxygen. Exam Physical Exam Vital Signs: Temp Pulse Resp BP Pulse Ox O2 Del Method O2 Flow Rate 98.3 F 97 20 124/79 97 Nasal Cannula 5 05/09/24 11:49 05/09/24 11:49 05/09/24 11:49 05/09/24 11:49 05/09/24 11:49 05/09/24 11:49 05/09/24 11:49 Const Orientation: alert, awake and oriented x3 Resp Effort & Inspection: normal respiratory effort and able to speak in complete sentences Auscultation: no rales, no rhonchi and no wheezes Cardio Rate: regular rate Rhythm: regular rhythm Heart Sounds: S1 normal and S2 normal GI Palpation: soft, not firm, no guarding and nontender Neuro General: patient alert, patient awake, patient oriented x3, moves all extremities, no focal motor deficits and CN's II-XI intact bilaterally Cognition: normal cognition Speech: speech normal Extrem General: no clubbing, cyanosis or edema and no calf tenderness Objective Lab Results 05/09/24 04:29 05/09/24 04:29 Microbiology Results Microbiology 05/08/24 11:40 Nares, Left MRSA Culture - Preliminary No MRSA Isolated 1 Day Meds Allergies and Active Meds Allergies No Known Allergies Allergy (Verified 04/13/24 10:39) Active Meds: Active Medications Generic Name Dose Route Start Last Admin Trade Name Freq PRN Reason Stop Dose Admin Acetaminophen 650 mg 05/06/24 21:49 05/09/24 01:54 Acetaminophen 325 Mg Tablet PO 05/06/25 21:48 650 mg Q4H PRN Administration Pain Scale 1 - 5 Albuterol 2.5 mg 05/06/24 21:49 Albuterol Neb 2.5 Mg/3 Ml Vial.Neb INHALATION 05/06/25 21:48 Q2H PRN Shortness Of Breath Alprazolam 0.125 mg 05/06/24 22:01 Alprazolam 0.25 Mg Tablet PO 11/02/24 22:00 DAILY PRN anxiety Diclofenac Sodium 2 gm 05/07/24 14:00 05/09/24 09:47 Diclofenac Sodium 1% Gel 100 Gm Tube TOPICAL 05/07/25 13:59 2 gm TID NORM Administration Docusate Sodium 200 mg 05/06/24 21:49 Docusate 100 Mg Capsule PO 05/06/25 21:48 BID PRN Constipation Enoxaparin Sodium 40 mg 05/07/24 10:00 05/09/24 09:47 Enoxaparin 40 Mg/0.4 Ml Syringe SUBCUT 05/07/25 09:59 40 mg DAILY@1000 NORM Administration Furosemide 40 mg 05/06/24 23:00 05/09/24 09:46 Furosemide 40 Mg/4 Ml Vial IV-PUSH 05/06/25 22:59 40 mg BID@0800,1600 NORM Administration Guaifenesin 1,200 mg 05/07/24 09:00 05/09/24 09:47 Guaifenesin 600 Mg Tab.Er.12h PO 05/07/25 08:59 1,200 mg BID NORM Administration Hydralazine HCl 10 mg 05/06/24 21:49 Hydralazine 20 Mg/Ml Vial IV-PUSH 05/06/25 21:48 Q4H PRN if SBP > 185 Piperacillin Sod/Tazobactam Sod 3.375 gm in 100 mls @ 25 mls/hr 05/07/24 06:00 05/09/24 06:39 Zosyn IV 25 mls/hr Q8H NORM Administration Lidocaine 1 patch 05/08/24 09:00 05/09/24 09:47 Lidocaine 4% Adh..Patch TOPICAL 05/08/25 08:59 Not Given DAILY NORM Loperamide HCl 2 mg 05/09/24 10:22 05/09/24 11:26 Loperamide 2 Mg Capsule PO 05/09/25 10:21 2 mg Q2H PRN Administration Diarrhea Melatonin 5 mg 05/08/24 15:19 Melatonin 5 Mg Tablet PO 05/08/25 21:59 QHS PRN insomnia Methylprednisolone Sodium Succinate 40 mg 05/06/24 22:00 05/09/24 11:26 Methylprednisolone Sod Succ/Pf 40 Mg/Ml (1ml) Vial IV-PUSH 05/06/25 21:59 40 mg Q6H NORM Administration Mycophenolate Mofetil 1,000 mg 05/06/24 23:15 05/09/24 09:46 Mycophenolate Mofetil 250 Mg Capsule PO 05/06/25 23:14 1,000 mg TID NORM Administration Norethindrone-Ethin 1 tab 05/07/24 09:00 05/09/24 09:47 Estradiol [Nortrel 1 PO 05/07/25 08:59 1 tab /35 (28)] 1-35 Mg- QAM NORM Administration Mcg Tablet Non-Formulary Medication 0 mg 05/08/24 09:00 05/08/24 09:14 Treprostinil Sodium [Remodulin] SUBCUT 05/08/25 08:59 Not Given Q2D NORM Oxycodone HCl 5 mg 05/07/24 11:23 05/07/24 21:45 Oxycodone Ir 5 Mg Tablet PO 5 mg Q6HR PRN Administration Severe Pain Pantoprazole Sodium 40 mg 05/07/24 09:00 05/09/24 09:47 Pantoprazole 40 Mg Tablet. PO 05/07/25 08:59 40 mg DAILY NORM Administration Sildenafil Citrate 20 mg 05/06/24 22:00 05/09/24 09:47 Sildenafil Citrate 20 Mg Tablet PO 05/06/25 21:59 20 mg TID NORM Administration A&P - Hospitalist Assessment/Plan (1) Hypokalemia: (2) Acute and chronic respiratory failure: (3) ILD (interstitial lung disease): (4) Pulmonary hypertension: Plan Patient receiving IV Lasix with good urine output and has been on negative fluid balance. Receiving potassium supplement. MRSA screening is negative and will discontinue vancomycin. She remains on IV Zosyn. Patient on IV steroid require slow tapering. Lovenox for DVT prophylaxis. Continue bronchodilator and encouraged to ambulate as tolerated. Also on mycophenolate, sildenafil and treprostinil. Morning labs showing leukocytosis likely from IV steroid. Remains afebrile with slow improvement in respiratory symptoms. Documented By: Letitia Cruz MD 05/09/24 1232 Signed By: <Electronically signed by Letitia Cruz MD> 05/09/24 7251 [facility] Work Phone: 1(533) 411-652709-23-2024 Progress note Author Chilo Santos [facility] May 08, 2024 3:43pm Note Date/Time May 08, 2024 8:09am [facility] [address] [place] [address] Pulmonology Progress Note Signed Patient: Flash Irving MR#: [id number] : 1975 Acct:[id number] Age/Sex: 49 / F Adm Date: 4 Loc: Room: [address] [place] [address] Type: ADM IN Attending Dr: Letitia Cruz MD Copies to: ~ Date of Service: 05/08/2024 Subjective Subjective Narrative: Patient continues to complain of dyspnea without significant coughing or sputum production. Exam Physical Exam Vital Signs: Temp Pulse Resp BP Pulse Ox O2 Del Method O2 Flow Rate 98.2 F 94 19 123/78 94 L Nasal Cannula 5 05/07/24 19:42 05/08/24 04:00 05/08/24 04:00 05/08/24 04:00 05/08/24 04:00 05/08/24 04:00 05/08/24 04:00 Const General: cooperative Orientation: alert and awake HEENT Head: normal to inspection Ears: hearing grossly normal bilaterally and external ears normal Nose: external nose normal Face and sinus: normal facial exam Eyes Sclera: sclerae normal Neck Neck: normal visual inspection Chest Chest palpation & inspection: normal inspection of the chest Resp Effort & Inspection: normal respiratory effort Auscultation: clear to auscultation bilaterally, crackles bilaterally (Right greater than left) at the base, diminished lung sounds, no rhonchi and no wheezes Cardio Rate: regular rate Rhythm: regular rhythm Heart Sounds: S1 normal, S2 normal and no murmurs GI Inspection: normal to inspection Palpation: soft and nontender Rectal Exam: deferred General: deferred Skin General: no rashes or lesions noted (Warm and dry) Extrem General: no pedal edema Objective Intake and Output I&O - Last 24 Hours: Intake & Output 05/07/24 05/08/24 05/08/24 23:59 07:59 15:59 Intake Total 600 / 1250 450 / 450 Output Total 2150 / 4425 1000 / 1000 Balance -1550 / -3175 -550 / -550 Weight 159 lb 13.362 oz Labs 05/07/24 04:54 05/08/24 09:52 Microbiology Micro: Microbiology 3 05/07/24 16:17 Respiratory Panel (PCR) - Final Nasopharyngeal Upper respiratory PCR panel is negative. Imaging and Cardiology CT scan - chest: Status: image reviewed by me Additional comments: CT scan of the thorax from the [facility] of May 06, 2024 was reviewed personally and compared to prior CT arteriogram from [facility] of October 12, 2023. Fibrotic changes are again appreciated throughout the right lung and in the left lung base with evidence of emphysematous changes noted in the left apex. However there is no significant change in images with no obvious consolidation or infiltrate in my opinion. Assessment/Plan Assessment/Plan (1) Acute and chronic respiratory failure: (2) ILD (interstitial lung disease): (3) Pulmonary hypertension: Plan Hospital day #2 for patient with known interstitial lung disease on multiple immunosuppressants including prednisone at 5 mg daily and CellCept at 500 mg 4 times daily admitted for worsening hypoxemia and increasing cough with increase in volume of sputum production without significant purulence. To my review, CT scan from the [facility] from May 06 is not change from prior CT scan from [facility] of October 12 of this year. Furthermore, upper respiratory PCR panel is not only negative for COVID but alsonegative for rhinovirus and enterovirus. Patient has had good diuresis without significant worsening of renal function or hemodynamics no tachycardia is noted. Patient does question whether some of her symptoms may be related to interpersonal stress. I have no new recommendations and would continue antibiotics and will follow-up on cultures including obtaining MRSA culture to determine if vancomycin can be discontinued. Sputum culture could not be obtained. If MRSA culture is negative, ultimately would discontinue vancomycin and if no new cultures would plan on at least 5 days of IV antibiotics. In the meantime continue steroids and diuretics as hemodynamics and renal function permits. Documented By: Chilo Santos MD 4 [id number] Signed By: <Electronically signed by MD Chilo Santos> 05/08/24 1543 [facility] Work Phone: 1(615) 883-100009-23-2024 Progress note Author Letitia Cruz [facility] May 08, 2024 12:50pm Note Date/Time May 07, 2024 11:44am [facility] [address] [place] [address] Hospitalist Progress Note Signed with Addenda Patient: Flash Irving MR#: [id number] : 1975 Acct:[id number] Age/Sex: 49 / F Adm Date: 4 Loc: Room: [address] [place] [address] Type: ADM IN Attending Dr: Letitia Cruz MD Copies to: ~ ADDENDUM1 I was informed by the nurse that the patient having diarrhea we will check stoolfor C. difficile. She has been on negative fluid balance with good urine output. Addendum Documented By: Letitia Cruz MD 05/08/24 1250 Addendum Signed By: <Electronically signed by Letitia Cruz MD> 05/08/24 1250 Date of Service: 05/07/2024 Subjective Subjective Narrative: Patient was transferred from [facility] yesterday when she presented withcomplaint of shortness of breath. She does have history of pulmonary fibrosis and severe pulmonary hypertension follows with Dr. Santos and specialist in [place]. She is currently on mycophenolate, prednisone, sildenafil and Treprostinil subcutaneously. Patient currently on 5 L oxygen and complaining of left scapular pain. She mentioned having similar pain when she had a flare of pulmonary fibrosis in the beginning of the year. Denies excessive cough. She does get cough intermittently which is productive of clear expectorant. Denies fever or chills. Exam Physical Exam Vital Signs: Temp Pulse Resp BP Pulse Ox O2 Del Method O2 Flow Rate 98.1 F 106 H 22 119/80 97 Nasal Cannula 5 05/07/24 11:10 05/07/24 11:10 05/07/24 11:10 05/07/24 11:10 05/07/24 11:10 05/07/24 11:10 05/07/24 11:10 Const Orientation: alert, awake and oriented x3 Resp Effort & Inspection: normal respiratory effort and tachypneic (Appears slightly tachypneic while talking) Auscultation: crackles (Fine crackles bilaterally up to mid lungs), no rhonchi and no wheezes Cardio Rate: regular rate Rhythm: regular rhythm Heart Sounds: S1 normal and S2 normal GI Palpation: soft, not firm, no guarding and nontender Neuro General: patient alert, patient awake, patient oriented x3, moves all extremities, no focal motor deficits and CN's II-XI intact bilaterally Cognition: normal cognition Speech: speech normal Extrem General: no clubbing, cyanosis or edema and no calf tenderness Objective Lab Results 05/07/24 04:54 05/07/24 04:54 Meds Allergies and Active Meds Allergies No Known Allergies Allergy (Verified 04/13/24 10:39) Active Meds: Active Medications Generic Name Dose Route Start Last Admin Trade Name Freq PRN Reason Stop Dose Admin Acetaminophen 650 mg 05/06/24 21:49 05/07/24 10:29 Acetaminophen 325 Mg Tablet PO 05/06/25 21:48 650 mg Q4H PRN Administration Pain Scale 1 - 5 Albuterol 2.5 mg 05/06/24 21:49 Albuterol Neb 2.5 Mg/3 Ml Vial.Neb INHALATION 05/06/25 21:48 Q2H PRN Shortness Of Breath Alprazolam 0.125 mg 05/06/24 22:01 Alprazolam 0.25 Mg Tablet PO 11/02/24 22:00 DAILY PRN anxiety Diclofenac Sodium 2 gm 05/07/24 14:00 Diclofenac Sodium 1% Gel 100 Gm Tube TOPICAL 05/07/25 13:59 TID NORM Docusate Sodium 200 mg 05/06/24 21:49 Docusate 100 Mg Capsule PO 05/06/25 21:48 BID PRN Constipation Enoxaparin Sodium 40 mg 05/07/24 10:00 05/07/24 10:30 Enoxaparin 40 Mg/0.4 Ml Syringe SUBCUT 05/07/25 09:59 40 mg DAILY@1000 NORM Administration Furosemide 40 mg 05/06/24 23:00 05/07/24 08:23 Furosemide 40 Mg/4 Ml Vial IV-PUSH 05/06/25 22:59 40 mg BID@0800,1600 NORM Administration Guaifenesin 1,200 mg 05/07/24 09:00 05/07/24 08:22 Guaifenesin 600 Mg Tab.Er.12h PO 05/07/25 08:59 1,200 mg BID NORM Administration Hydralazine HCl 10 mg 05/06/24 21:49 Hydralazine 20 Mg/Ml Vial IV-PUSH 05/06/25 21:48 Q4H PRN if SBP > 185 Piperacillin Sod/Tazobactam Sod 3.375 gm in 100 mls @ 25 mls/hr 05/07/24 06:00 05/07/24 06:15 Zosyn IV 25 mls/hr Q8H NORM Administration Vancomycin HCl 1 gm in 250 mls @ 250 mls/hr 05/07/24 11:30 05/07/24 11:11 Vancomycin IV 250 mls/hr Q12H NORM Administration Lidocaine 1 patch 05/08/24 09:00 Lidocaine 4% Adh..Patch TOPICAL 05/08/25 08:59 DAILY [facility] Methylprednisolone Sodium Succinate 40 mg 05/06/24 22:00 05/07/24 10:30 Methylprednisolone Sod Succ/Pf 40 Mg/Ml (1ml) Vial IV-PUSH 05/06/25 21:59 40 mg Q6H NORM Administration Mycophenolate Mofetil 1,000 mg 05/06/24 23:15 05/07/24 08:22 Mycophenolate Mofetil 250 Mg Capsule PO 05/06/25 23:14 1,000 mg TID NORM Administration Norethindrone-Ethin 1 tab 05/07/24 09:00 05/07/24 08:23 Estradiol [Nortrel 1 PO 05/07/25 08:59 1 tab /35 (28)] 1-35 Mg- QAM NORM Administration Mcg Tablet Non-Formulary Medication 0 mg 05/08/24 09:00 Treprostinil Sodium [Remodulin] SUBCUT 05/08/25 08:59 Q2D NORM Oxycodone HCl 5 mg 05/07/24 11:23 Oxycodone Ir 5 Mg Tablet PO Q6HR PRN Severe Pain Pantoprazole Sodium 40 mg 05/07/24 09:00 05/07/24 08:23 Pantoprazole 40 Mg Tablet. PO 05/07/25 08:59 40 mg DAILY NORM Administration Sildenafil Citrate 20 mg 05/06/24 22:00 05/07/24 08:22 Sildenafil Citrate 20 Mg Tablet PO 05/06/25 21:59 20 mg TID NORM Administration Vancomycin HCl 1 each 05/06/24 21:53 Vancomycin - Pharmacy Dosing 1 Each Miscell IV ONCE PRN ZZ.Pharmacy Consult Protocol A&P - Hospitalist Assessment/Plan (1) Hypokalemia: (2) Acute and chronic respiratory failure: Plan Patient has been transferred to [facility] due to concern for exacerbation of pulmonary fibrosis/interstitial lung disease. Pulmonary service has been consulted given history of severe pulmonary hypertension with pulmonary fibrosis. Patient currently on IV Lasix and IV steroid. CTA chest was negative for PE but showed bilateral groundglass airspace disease. She is complaining of pain in the left scapular area with positive tenderness. Will try Voltaren gel and Lidoderm patch. Oxycodone for severe pain. She has also been started on Zosyn and vancomycin given her immunocompromise state. Suspicion for infection etiology is low. Continue Lovenox for DVT prophylaxis. Continue mycophenolate, sildenafil and treprostinil. Documented By: Letitia Cruz MD 05/07/24 1143 Signed By: <Electronically signed by Letitia Cruz MD> 05/07/24 1152 [facility] Work Phone: 1(116) 190-829609-23-2024 Progress note Author Letitia Cruz [facility] May 08, 2024 12:48pm Note Date/Time May 08, 2024 12:48pm [facility] [address] [place] [address] Hospitalist Progress Note Signed Patient: Flash Irving MR#: [id number] : 1975 Acct:[id number] Age/Sex: 49 / F Adm Date: 4 Loc: 4P Room: [address] [place] [address] Type: ADM IN Attending Dr: Letitia Cruz MD Copies to: ~ Date of Service: 05/08/2024 Subjective Subjective Narrative: Patient examined at bedside with no overnight event. She is feeling slightly better as compared to yesterday and denies any excessive cough. On 5 L of oxygen. Exam Physical Exam Vital Signs: Temp Pulse Resp BP Pulse Ox O2 Del Method O2 Flow Rate 98.3 F 121 H 22 114/74 93 L Simple Mask 5 05/08/24 12:00 05/08/24 12:00 05/08/24 08:00 05/08/24 12:00 05/08/24 12:00 05/08/24 12:00 05/08/24 12:00 Const Orientation: alert, awake and oriented x3 Resp Effort & Inspection: normal respiratory effort Auscultation: crackles (Fine crackles bilaterally up to mid lungs), no rhonchi and no wheezes Cardio Rate: regular rate Rhythm: regular rhythm Heart Sounds: S1 normal and S2 normal GI Palpation: soft, not firm, no guarding and nontender Neuro General: patient alert, patient awake, patient oriented x3, moves all extremities, no focal motor deficits and CN's II-XI intact bilaterally Cognition: normal cognition Speech: speech normal Extrem General: no clubbing, cyanosis or edema and no calf tenderness Objective Lab Results 05/07/24 04:54 05/08/24 09:52 Microbiology Results Microbiology 05/07/24 16:17 Nasopharyngeal Respiratory Panel (PCR) - Final Meds Allergies and Active Meds Allergies No Known Allergies Allergy (Verified 04/13/24 10:39) Active Meds: Active Medications Generic Name Dose Route Start Last Admin Trade Name Freq PRN Reason Stop Dose Admin Acetaminophen 650 mg 05/06/24 21:49 05/07/24 15:24 Acetaminophen 325 Mg Tablet PO 05/06/25 21:48 650 mg Q4H PRN Administration Pain Scale 1 - 5 Albuterol 2.5 mg 05/06/24 21:49 Albuterol Neb 2.5 Mg/3 Ml Vial.Neb INHALATION 05/06/25 21:48 Q2H PRN Shortness Of Breath Alprazolam 0.125 mg 05/06/24 22:01 Alprazolam 0.25 Mg Tablet PO 11/02/24 22:00 DAILY PRN anxiety Diclofenac Sodium 2 gm 05/07/24 14:00 05/08/24 09:11 Diclofenac Sodium 1% Gel 100 Gm Tube TOPICAL 05/07/25 13:59 2 gm TID NORM Administration Docusate Sodium 200 mg 05/06/24 21:49 Docusate 100 Mg Capsule PO 05/06/25 21:48 BID PRN Constipation Enoxaparin Sodium 40 mg 05/07/24 10:00 05/08/24 09:13 Enoxaparin 40 Mg/0.4 Ml Syringe SUBCUT 05/07/25 09:59 40 mg DAILY@1000 NORM Administration Furosemide 40 mg 05/06/24 23:00 05/08/24 09:13 Furosemide 40 Mg/4 Ml Vial IV-PUSH 05/06/25 22:59 40 mg BID@0800,1600 NORM Administration Guaifenesin 1,200 mg 05/07/24 09:00 05/08/24 09:12 Guaifenesin 600 Mg Tab.Er.12h PO 05/07/25 08:59 1,200 mg BID NORM Administration Hydralazine HCl 10 mg 05/06/24 21:49 Hydralazine 20 Mg/Ml Vial IV-PUSH 05/06/25 21:48 Q4H PRN if SBP > 185 Piperacillin Sod/Tazobactam Sod 3.375 gm in 100 mls @ 25 mls/hr 05/07/24 06:00 05/08/24 06:59 Zosyn IV 25 mls/hr Q8H NORM Administration Vancomycin HCl 1 gm in 250 mls @ 250 mls/hr 05/07/24 11:30 05/08/24 12:18 Vancomycin IV 250 mls/hr Q12H NORM Administration Lidocaine 1 patch 05/08/24 09:00 05/08/24 09:13 Lidocaine 4% Adh..Patch TOPICAL 05/08/25 08:59 Not Given DAILY NORM Methylprednisolone Sodium Succinate 40 mg 05/06/24 22:00 05/08/24 11:35 Methylprednisolone Sod Succ/Pf 40 Mg/Ml (1ml) Vial IV-PUSH 05/06/25 21:59 40 mg Q6H NORM Administration Mycophenolate Mofetil 1,000 mg 05/06/24 23:15 05/08/24 09:12 Mycophenolate Mofetil 250 Mg Capsule PO 05/06/25 23:14 1,000 mg TID NORM Administration Norethindrone-Ethin 1 tab 05/07/24 09:00 05/08/24 09:11 Estradiol [Nortrel 1 PO 05/07/25 08:59 1 tab /35 (28)] 1-35 Mg- QAM NORM Administration Mcg Tablet Non-Formulary Medication 0 mg 05/08/24 09:00 05/08/24 09:14 Treprostinil Sodium [Remodulin] SUBCUT 05/08/25 08:59 Not Given Q2D NORM Oxycodone HCl 5 mg 05/07/24 11:23 05/07/24 21:45 Oxycodone Ir 5 Mg Tablet PO 5 mg Q6HR PRN Administration Severe Pain Pantoprazole Sodium 40 mg 05/07/24 09:00 05/08/24 09:12 Pantoprazole 40 Mg Tablet. PO 05/07/25 08:59 40 mg DAILY NORM Administration Potassium Chloride 40 meq 05/08/24 11:00 05/08/24 11:34 Potassium Chloride Er 20 Meq Tab.Er.Prt PO 05/08/24 13:01 40 meq Q2H NORM Administration Sildenafil Citrate 20 mg 05/06/24 22:00 05/08/24 09:12 Sildenafil Citrate 20 Mg Tablet PO 05/06/25 21:59 20 mg TID NORM Administration Vancomycin HCl 1 each 05/06/24 21:53 Vancomycin - Pharmacy Dosing 1 Each Miscell IV ONCE PRN ZZ.Pharmacy Consult Protocol A&P - Hospitalist Assessment/Plan (1) Hypokalemia: (2) Acute and chronic respiratory failure: (3) ILD (interstitial lung disease): (4) Pulmonary hypertension: Plan Patient feeling slightly better but still gets short of breath on exertion and not back to her baseline. Respiratory PCR panel was negative pending MRSA culture. She remains on broad-spectrum IV antibiotics as infectious etiology cannot be completely ruled out. Appreciate pulmonary consultation. Continue IV steroids and IV Lasix. Potassium has been replaced. Will add sliding scale coverage for steroid-induced hyperglycemia. On Lovenox for DVT prophylaxis. Continue mycophenolate and treprostinil. Documented By: Letitia Cruz MD 05/08/24 1243 Signed By: <Electronically signed by Letitia Cruz MD> 05/08/24 1248 [facility] Work Phone: 1(124) 763-544009-22-2024 Consult note Author Chilo Santos [facility] May 07, 2024 4:15pm Note Date/Time May 07, 2024 9:31am [facility] [address] [place] [address] Pulmonology Consult Note Signed Patient: Flash Irving MR#: [id number] : 1975 Acct:[id number] Age/Sex: 49 / F Adm Date: 4 Loc: Room: [address] [place] [address] Type: ADM IN Attending Dr: Letitia Cruz MD Copies to: MD Jabari Call,DO Letitia Cruz MD~ HPI Date/Time of Consultation: Date of Service: 05/07/2024 Time of Service: 09:27 Consulting Provider: Chilo Santos Requesting Provider: Letitia Cruz History of Present Illness History of present illness: Ms. Irving is a 49 year old female seen at the request of the hospitalist service for hypoxia. Patient is known to me from previous inpatient and outpatient evaluations for pulmonary fibrosis and pulmonary hypertension on Remodulin, sildenafil, prednisone 10 mg daily, and CellCept 500 mg 4 times daily. Patient notes increase in cough and production of clear sputum starting on May 03, 2024 without reported fever, shaking shivering chills, or sweats. However on May 06, 2024 patient noted progressive worsening in her dyspnea and dyspnea on exertion. She denies purulent sputum nor blood-streaked mucus. She denies hemoptysis. She denies wheezing nor significant chest pain pleuritic otherwise. Patient denies palpitations with no significantincrease in lower extremity edema. She does admit to some diarrhea related to her treprostinil without nausea, constipation, melena or hematochezia. She denies dysuria nor hematuria. Patient is under increased stress and is now living with her sister between [place] and [place]. Review of Systems Review of Systems All other systems reviewed & are negative unless noted below or in HPI [facility] Medical History (Updated 04/13/24 @ 10:57 by April Curry RN) Oxygen dependent 5L GERD (gastroesophageal reflux disease) Pulmonary hypertension Heart failure Collapsed lung x2 2019 ILD (interstitial lung disease) Melanoma Polymyositis Pulmonary fibrosis Surgical History (Updated 04/13/24 @ 10:57 by April Curry RN) H/O detached retina repair left eye History of cardiac catheterization H/O melanoma excision Family History (Updated 04/13/24 @ 10:57 by April Curry RN) Mother Diabetes Hypertension Father Heart disease Social History Smoking Status: Former smoker Tobacco Type: cigarettes Substance Use Type: None Substance Abuse Comment: 1 beer a day at dinner Meds Medications and Allergies Allergies No Known Allergies Allergy (Verified 04/13/24 10:39) Home Medications mycophenolate mofetil 500 mg tablet (CellCept) 1,000 mg PO TID pulmonary fibrosis 03/01/19 [History Confirmed 05/06/24] calcium citrate 250 mg calcium-vitamin D3 5 mcg (200 unit) tablet (Citracal Regular) 1 tab PO QAM 05/08/20 [History Confirmed 05/06/24] norethindrone 1 mg-ethinyl estradiol 35 mcg tablet (Nortrel) 1 tab PO QAM 10/12/23 [History Confirmed 05/06/24] pantoprazole 40 mg tablet,delayed release 40 mg PO QAM 10/12/23 [History Confirmed 05/06/24] sildenafil (pulm.hypertension) 20 mg tablet 20 mg PO TID 10/12/23 [History Confirmed 05/06/24] treprostinil sodium 10 mg/mL injection solution (Remodulin) See Rx Instructions continuous subcutaneous infusion CONT 10/12/23 [History Confirmed 05/06/24] Oxygen 03/07/24 [History Confirmed 05/06/24] prednisone 10 mg tablet 10 mg PO QAM 03/07/24 [History Confirmed 05/06/24] furosemide 40 mg tablet (Lasix) 40 mg PO QAM 04/13/24 [History Confirmed 05/06/24] potassium chloride 20 mEq tablet,extended release 20 meq PO QAM 04/13/24 [History Confirmed 05/06/24] alprazolam 0.5 mg tablet (Xanax) 0.125 mg PO DAILY PRN anxiety 05/06/24 [History Confirmed 05/06/24] Exam Physical Exam Vital Signs: Temp Pulse Resp BP Pulse Ox O2 Del Method O2 Flow Rate 98.4 F 92 21 126/81 95 Nasal Cannula 6 05/07/24 08:19 05/07/24 08:19 05/07/24 08:19 05/07/24 08:19 05/07/24 08:19 05/07/24 08:19 05/07/24 08:19 Const General: cooperative Orientation: alert and awake HEENT Head: normal to inspection Ears: hearing grossly normal bilaterally and external ears normal Nose: external nose normal Face and sinus: normal facial exam Eyes Sclera: sclerae normal Neck Neck: normal visual inspection Chest Chest palpation & inspection: normal inspection of the chest Resp Effort & Inspection: normal respiratory effort Auscultation: crackles bilaterally (Right greater than left) at the base, diminished lung sounds, no rhonchi and no wheezes Cardio Rate: regular rate Rhythm: regular rhythm Heart Sounds: S1 normal, S2 normal and no murmurs GI Inspection: normal to inspection Palpation: soft and nontender Rectal Exam: deferred General: deferred Skin General: no rashes or lesions noted (Warm and dry) Extrem General: no pedal edema Results - Pulmonology Intake and Output I&O - Last 24 Hours: Intake & Output 05/06/24 05/07/24 05/07/24 23:59 07:59 15:59 Intake Total 300 / 300 Output Total 2275 / 2275 Balance -1974 / -1974 Weight 163 lb 9.328 oz 162 lb 14.746 oz Labs 05/07/24 04:54 05/07/24 04:[address] scan - chest: Additional comments: Unable to review the CT scan from the [facility] at this time. Assessment/Plan (1) Acute and chronic respiratory failure: (2) ILD (interstitial lung disease): (3) Pulmonary hypertension: Plan Hospital day #1 for patient with known interstitial lung disease on multiple immunosuppressants including prednisone at 5 mg daily and CellCept at 500 mg 4 times daily admitted for worsening hypoxemia and increasing cough with increase in volume of sputum production without significant purulence. Certainly concerns for infection remain including possibility of viral infection. Patientdoes not give strong some symptomatology to suggest bacterial infection. Volumeoverload is also a concern. I have been unable to review the patient's CT scan. We will proceed with a upper respiratory PCR panel to exclude COVID but also exclude enterovirus/rhinovirus. Patient's steroids were increased to Solu-Medrol 40 mg IV every 6 hours with patient on Zosyn and vancomycin. We will review CT scan and make further recommendations. Patient is also getting twice daily diuretics with stable renal function I would continue this as renal function and hemodynamics allows. We will follow with you. Documented By: Chilo Santos MD 4 0927 Signed By: <Electronically signed by MD Chilo Santos> 05/07/24 1615 [facility] Work Phone: 1(876) 782-950409-22-2024 History and physical note Author Mira Sun [facility] May 06, 2024 10:48pm Note Date/Time May 06, 2024 9:40pm [facility] [address] [place] [address] Hospitalist H&P Signed Patient: Flash Irving MR#: [id number] : 1975 Acct:[id number] Age/Sex: 49 / F Adm Date: 4 Loc: Room: [address] [place] [address] Type: ADM IN Attending Dr: Torrey Ocasio MD Copies to: DO Torrey Braun MD Ruta Semaskiene, MD~ HPI DATE OF EXAMINATION: 05/06/24 CHIEF COMPLAINT: Shortness of breath HISTORY OF PRESENT ILLNESS: 49 years old female transferred from [facility] due to shortness of breath. Patient does have a history of pulmonary fibrosis and pulmonary hypertension, she uses 4 to 5 L at rest and 6 with exertion, following with Dr. Santos as well as community health specialist in [facility] presented with worsening of shortness of breath. This started 3 days ago, patient noted that she has been having more cough with clear sputum production which is normal, no purulence. Denied any fevers any chills. Today she noted that she has been getting more shortness of breath especially with exertion, desaturating down to 80s. Also she complained of some chest pain in the left side, lasting for couple of minutes, sharp in nature, radiating to the left shoulder blade. She denies any lower extremity swelling. No nausea no vomiting. No diarrhea. No abdominal pain. No dysuria urgency frequency. Denies any sore throat. Does have chronic rhinorrhea. She denies any underlying coronary artery disease, she did have a cardiac catheterization 2 years ago in [place], per patient no significant coronary artery disease no stents 10 systems are reviewed and are negative apart as mentioned H&P General -patient is awake alert oriented ?3, does not appear to be in distress, however she noted to be tachypneic and in respiratory distress while talking HEENT -normal oropharyngeal mucosa without any ulcers or exudates Cardiovascular -S1 plus S2, with regular rate, without any murmurs, gallops, rubs Pulmonary -crackles bilaterally Gastrointestinal -abdomen is soft, nondistended, nontender, bowel sounds positive, no rigidity, no rebound Genitourinary -deferred Musculoskeletal -no significant joint swelling Neurological -no focal Skin -no significant ulcers, no rash noted Extremities - no edema in bilateral lower extremities noted Psychiatry - appropriate affect Laboratory work up, imaging studies reviewed EKG personally reviewed by me Previous records in the computer system reviewed Evaluation at [facility] emergency room showed CTA of the chest no PE, bilateral groundglass airspace disease and interstitial thickening suspicious for atypical inflammatory infectious process, edema is possible, Chest x-ray diffuse abnormal lung domínguez question bilateral pneumonia EKG showed normal sinus rhythm with ventricular rate 107, QTc [address]-T wave changes slight ST depression in inferior lead, and ST depression in V2 V4 White blood cell count 15.4, hemoglobin 13.8, platelets 185, sodium 137, potassium 2.9, chloride 101, bicarbonate 27, BUN 9, creatinine 0.7, glucose 123,troponins 5.2 [facility] Medical History (Updated 04/13/24 @ 10:57 by April Curry RN) Oxygen dependent 5L GERD (gastroesophageal reflux disease) Pulmonary hypertension Heart failure Collapsed lung x2 2019 ILD (interstitial lung disease) Melanoma Polymyositis Pulmonary fibrosis Surgical History (Updated 04/13/24 @ 10:57 by April Curry RN) H/O detached retina repair left eye History of cardiac catheterization H/O melanoma excision Family History (Updated 04/13/24 @ 10:57 by April Curry RN) Mother Diabetes Hypertension Father Heart disease Social History Smoking Status: Former smoker Tobacco Type: cigarettes Substance Use Type: None Substance Abuse Comment: 1 beer a day at dinner Meds Medications and Allergies Allergies No Known Allergies Allergy (Verified 04/13/24 10:39) Home Medications mycophenolate mofetil 500 mg tablet (CellCept) 1,000 mg PO TID pulmonary fibrosis 03/01/19 [History Confirmed 05/06/24] calcium citrate 250 mg calcium-vitamin D3 5 mcg (200 unit) tablet (Citracal Regular) 1 tab PO QAM 05/08/20 [History Confirmed 05/06/24] norethindrone 1 mg-ethinyl estradiol 35 mcg tablet (Nortrel) 1 tab PO QAM 10/12/23 [History Confirmed 05/06/24] pantoprazole 40 mg tablet,delayed release 40 mg PO QAM 10/12/23 [History Confirmed 05/06/24] sildenafil (pulm.hypertension) 20 mg tablet 20 mg PO TID 10/12/23 [History Confirmed 05/06/24] treprostinil sodium 10 mg/mL injection solution (Remodulin) See Rx Instructions continuous subcutaneous infusion CONT 10/12/23 [History Confirmed 05/06/24] Oxygen 03/07/24 [History Confirmed 05/06/24] prednisone 10 mg tablet 10 mg PO QAM 03/07/24 [History Confirmed 05/06/24] furosemide 40 mg tablet (Lasix) 40 mg PO QAM 04/13/24 [History Confirmed 05/06/24] potassium chloride 20 mEq tablet,extended release 20 meq PO QAM 04/13/24 [History Confirmed 05/06/24] alprazolam 0.5 mg tablet (Xanax) 0.125 mg PO DAILY PRN anxiety 05/06/24 [History Confirmed 05/06/24] Exam Physical Exam Vital Signs: Temp Pulse Resp BP Pulse Ox O2 Del Method O2 Flow Rate 36.8 C 109 H 23 113/72 94 L Nasal Cannula 6 05/06/24 18:14 05/06/24 20:00 05/06/24 20:00 05/06/24 20:00 05/06/24 20:00 05/06/24 20:00 05/06/24 20:00 Assessment & Plan Assessment/Plan (1) Hypokalemia: (2) Acute and chronic respiratory failure: Plan 1. Acute on chronic hypoxic respiratory failure due to suspected exacerbation of pulmonary fibrosis Patient usually uses 4 to 6 L nasal cannula at home, however significant desaturation noted in 80s with activity For now we will obtain sputum cultures, she does have leukocytosis with left shift, patient is immunocompromised due to her home immunosuppressive medications for now I will cover with broad-spectrum antibiotics-for presumed bacterial pneumonia Chronic steroid user, 10 mg daily of prednisone at home, switch to IV Lasix IV Will consult pulmonology 2. Hypokalemia, replacement, check magnesium, 3. DVT prophylaxis Lovenox IP vs OBS Justification Based on differential dx, clinical care plan, and risk of adverse events, if untreated, in my clinical judgement this patient requires an acute care setting as: INPATIENT because of an expectation of an over 2 midnight stay. Estimated length of stay (# of days): 3 Documented By: Mira Sun MD 05/06/242134 Signed By: <Electronically signed by Mira Sun MD> 05/06/24 2248 [facility] Work Phone: 1(658) 524-479809-21-2024 Evaluation note* Diagnosis Onset Date Resolution Status Admit Date Acute and chronic respirator y failure resolved May 06, 2024 6:01pm Hypokalemia resolved April 6:01pm ILD (interstitial lung disease) inactive May 06, 2024 6:01pm Pulmonary hypertension inactive Se pt2023 6:01pm [facility] Work Phone: 1(726) 181-220409-13-2024 Telephone encounter Note* Telephone Encounter - Belkis Richard - 04/28/2024 2:55 PM EDT Fax medical records from [facility] office of Dr Jackson Borrero. Placed at front sight attacher for review. [facility]09-13-2024 Miscellaneous Notes* Telephone Encounter - Belkis Richard - 04/28/2024 2:55 PM EDT Fax medical records from [facility] office of Dr Jackson Borrero. Placed at front sight attacher for review. [facility]* Encounter Date Diagnosis Assessment Notes Treatment Notes Treatment Clinical Notes Aug, Pulmonary hypertension (ICD-10 - I27.20) Aug, Chronic interstitial lung disease (ICD-10 - J84.9) Aug, Polymyositis (ICD-10 - M33.20) Aug, Edema of lower extremity (ICD-10 - R60.0) [facility] Other 06-01-2023 Evaluation note* Encounter Date Diagnosis Assessment Notes Treatment Notes Treatment Clinical Notes Jan, Chronic interstitial lung disease (ICD-10 - J84.9) [facility] Other 04-10-2023 Evaluation note* Encounter Date Diagnosis Assessment Notes Treatment Notes Treatment Clinical Notes Nov, Gastroesophageal ref lux disease without esophagitis (ICD-10 - K21.9) [facility] Other 01-24-2023 Evaluation note* Encounter Date Diagnosis Assessment Notes Treatment Notes Treatment Clinical Notes Aug, Pulmonary hypertension (ICD-10 - I27.20) Aug, Chronic interstitial lung disease (ICD-10 - J84.9) Aug, Polymyositis (ICD-10 - M33.20) Aug, Edema of lower extremity (ICD-10 - R60.0) [facility] Other 09-19-2022 Evaluation note* Encounter Date Diagnosis Assessment Notes Treatment Notes Treatment Clinical Notes Apr, Pulmonary fibrosis (ICD-10 - J84.10) [facility] Other 09-06-2022 Evaluation note* Encounter Date Diagnosis Assessment Notes Treatment Notes Treatment Clinical Notes Apr, Pulmonary fibrosis (ICD-10 - J84.10) [facility] Other 07-26-2022 Evaluation note* Encounter Date Diagnosis Assessment Notes Treatment Notes Treatment Clinical Notes Feb, Pulmonary hypertension (ICD-10 - I27.20) Feb, Chronic interstitial lung disease (ICD-10 - J84.9) Feb, Polymyositis (ICD-10 - M33.20) Feb, Edema of lower extremity (ICD-10 - R60.0) [facility] Other [facility] Other Evaluation noteNo InformationNort [facility] Other Evaluation noteNo assessment information available [facility] Work Phone: evaluation note* Diagnosis Onset Date Resolution Status Acute and chronic respiratory failure acute Hypokalemia acute Hypomagnesemia acute ILD (interstitial lung disease) acute Pulmonary fibrosis acute Pulmonary hypertension acute [facility] Work Phone: evaluation note* Diagnosis Onset Date Resolution Status ILD (interstitial lung disease) acute Polymyositis acute Pulmonary hypertension acute [facility] Work Phone: Evalujfmzf note* Diagnosis Onset Date Resolution Status ILD (interstitial lung disease) acute Polymyositis acute Pulmonary hypertension acute Acute and chronic respiratory failure acute Hypokalemia acute ILD (interstitial lung disease) acute Pulmonary hypertension acute [facility] Work Phone: Evaluhemcn note* Diagnosis ILD (interstitial lung disease) (CMS/HCC)- Primary Postinflammatory pulmonary fibrosis Pulmonary fibrosis (CMS/HCC) Postinflammatory pulmonary fibrosis Chronic hypoxemic respiratory failure (CMS/HCC) Chronic respiratory failure 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) Bilateral leg edema Edema Other fatigue [facility] Nuclear sclerotic cataract, bilateral- Primary Blurry vision, bilateral Other specified visual disturbances Myopia, bilateral Myopia Nuclear sclerotic cataract, bilateral Nuclear sclerotic cataract, bilateral [facility] Diagnosis Preoperative examination- Primary Preoperative examination, unspecified Nuclear sclerotic cataract of both eyes Senile nuclear sclerosis ILD (interstitial lung disease) (HCC) Postinflammatory pulmonary fibrosis Hypercholesterolemia Pure hypercholesterolemia 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) Other chronic pulmonary heart diseases Pulmonary fibrosis (HCC) Postinflammatory pulmonary fibrosis Chronic hypoxemic respiratory failure (HCC) Chronic respiratory failure Edema of both lower legs Polymyositis (HCC) Polymyositis Chronic obstructive pulmonary disease, unspecified COPD type (HCC) Nuclear sclerotic cataract, bilateral Nuclear sclerotic cataract, bilateral [facility] Diagnosis Pseudophakia- Primary Lens replaced by other means Nuclear sclerotic cataract, bilateral [facility] Diagnosis Pseudophakia- Primary Lens replaced by other means [facility] Diagnosis Pseudophakia- Primary Lens replaced by other means [facility] Diagnosis ILD (interstitial lung disease) (CMS/HCC)- Primary Postinflammatory pulmonary fibrosis documented in this encounter [facility]* Diagnosis Pseudophakia- Primary Lens replaced by other means [facility] Diagnosis ILD (interstitial lung disease) (CMS/HCC)- Primary Postinflammatory pulmonary fibrosis Pulmonary fibrosis (CMS/HCC) 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) Mixed hyperlipidemia (CMS/HCC) Mixed hyperlipidemia Bilateral leg edema Edema Medication management documented in this encounter [facility]* Diagnosis Encounter for gynecological examination without abnormal finding Screening for malignant neoplasm of cervix Screening for malignant neoplasm of the cervix Breast cancer screening by mammogram Encounter for surveillance of contraceptive pills documented in this encounter [facility]* Diagnosis Onset Date Resolution Status Admit Date Acute hypokalemia acute Februar y 2024 4:23pm Chest pain acute October 04, 2024 4:23pm Pulmonary fibrosis acute Februa ry 2024 4:23pm Pulmonary hypertension acute Fe bruary 2024 4:23pm [facility] Work Phone: Evaluation note* Diagnosis Hypokalemia- Primary Hypopotassemia Palpitations Pulmonary fibrosis (CMS/HCC) Postinflammatory pulmonary fibrosis ILD (interstitial lung disease) (CMS/HCC) Postinflammatory pulmonary fibrosis Supplemental oxygen dependent Dependence on supplemental oxygen documented in this encounter [facility]* Diagnosis Encounter for general health examination- Primary ILD (interstitial lung disease) (HCC) 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) Chronic hypoxemic respiratory failure (HCC) Chronic respiratory failure Supplemental oxygen dependent Dependence on supplemental oxygen Bilateral leg edema Edema Elevated LDL cholesterol level Vitamin D deficiency [facility] Diagnosis LGSIL of cervix of undetermined significance HPV (human papilloma virus) infection documented [facility] Author Paddy Wiggins [facility] Note Date/Time October 04, 2024 5:08pm [facility] [address] [place] [address] Hospitalist H&P Signed Patient: Flash Irving MR#: [id number] : 1975 Acct:[id number] Age/Sex: 49 / F Adm Date: 5 Loc: Room: [address] [place] [address] Type: ADM INOo Attending Dr: Paddy Wiggins MD Copies to: Jabari Celeste,DO Paddy Wiggins MD~ HPI DATE OF EXAMINATION: 10/04/24 CHIEF COMPLAINT: Chest Discomfort HISTORY OF PRESENT ILLNESS: Flash Irving is a 49 y/o F h/o interstitial lung disease, pulmonary hypertension,on remodulin pump and sildenafil, she uses 4 to 5 L at rest and 6 with exertion,following with Dr. Santos as well as community health specialist in [facility], presented to [facility] ER from home with sudden onset shortness of breath chest discomfort, medicine called for admission. On assessment at bedside in the emergency room, patient is resting comfortably in bed, able to speak in complete sentences, on 5 L nasal cannula. States worsened dyspnea with ambulation to bathroom this am while at work, spontaneous,progressed to chest pressure and pain with lightheadedness, near passing out. Employer called EMS, patient developed slight nausea en route. Slight off and onchest discomfort since arrival to ER, pressure not sharp pain. Some radiation toback. Has had some congestion over the past 2 days, no fevers or chills, no productive cough. Compliant with prednisone 10 mg daily, sildenafil 20 mg TID, mycophenolate 1000 mg tid. In the ER, WBC 10.3, hgb 13.4, K 2.5, HsTroponin I 6, no EKG changes. CT chest showed no evidence of pneumothorax, continued L sided bullae and bilateral honeycombing. Review of Systems Review of Systems Review of systems: Review of Systems Constitutional: No fatigue, diaphoresis, AMS Ears, Nose, Mouth, and Throat: no dysphagia Cardiovascular: no chest pain Respiratory: + shortness of breath GI: no abdominal pain, tenderness, distension : no burning with urination Musculoskeletal: no myalgias or arthralgias Neurologic: no loss of motor function [facility] Medical History (Updated 10/04/24 @ 17:02 by Paddy Wiggins MD) Pulmonary hypertension Oxygen dependent 5L GERD (gastroesophageal reflux disease) Heart failure Collapsed lung x2 2019 ILD (interstitial lung disease) Melanoma Polymyositis Pulmonary fibrosis Surgical History H/O detached retina repair left eye History of cardiac catheterization H/O melanoma excision Family History (Updated 04/13/24 @ 10:57 by April Curry RN) Mother Diabetes Hypertension Father Heart disease Social History Smoking Status: Never smoker Tobacco Type: cigarettes Substance Use Type: None Substance Abuse Comment: 1 beer a day at dinner Meds Medications and Allergies Allergies No Known Allergies Allergy (Verified 04/13/24 10:39) Home Medications mycophenolate mofetil 500 mg tablet (CellCept) 1,000 mg PO TID pulmonary fibrosis 03/01/19 [History Confirmed 10/04/24] calcium 250 mg (as citrate)-vitamin D3 5 mcg (200 unit) tablet (Citracal Regular) 1 tab PO QAM 05/08/20 [History Confirmed 05/06/24] norethindrone 1 mg-ethinyl estradiol 35 mcg tablet (Nortrel) 1 tab PO QAM 10/12/23 [History Confirmed 10/04/24] pantoprazole 40 mg tablet,delayed release 40 mg PO QAM 10/12/23 [History Confirmed 10/04/24] sildenafil (pulm.hypertension) 20 mg tablet 20 mg PO TID 10/12/23 [History Confirmed 10/04/24] treprostinil sodium 10 mg/mL injection solution (Remodulin) See Rx Instructions continuous subcutaneous infusion CONT 10/12/23 [History Confirmed 10/04/24] Oxygen 03/07/24 [History Confirmed 10/04/24] prednisone 10 mg tablet 10 mg PO QAM 03/07/24 [History Confirmed 05/06/24] furosemide 40 mg tablet (Lasix) 40 mg PO QAM 04/13/24 [History Confirmed 10/04/24] potassium chloride 20 mEq tablet,extended release 20 meq PO QAM 04/13/24 [History Confirmed 10/04/24] alprazolam 0.5 mg tablet (Xanax) 0.125 mg PO DAILY PRN anxiety 05/06/24 [History Confirmed 10/04/24] prednisone 10 mg tablet 40 mg PO DAILY #65 tabs 05/12/24 [Rx Confirmed 10/04/24] rosuvastatin 10 mg tablet 10 mg PO DAILY 10/04/24 [History Confirmed 10/04/24] Exam Physical Exam Vital Signs: Temp Pulse Resp BP Pulse Ox O2 Del Method O2 Flow Rate 98.1 F 94 20 122/78 98 Nasal Cannula 5 10/04/24 12:24 10/04/24 15:35 10/04/24 15:35 10/04/24 15:35 10/04/24 15:35 10/04/24 15:35 10/04/24 15:35 Narrative: General: cooperative and comfortable Orientation: alert, awake and oriented x3 Head: normal to inspection Neck: normal visual inspection Cardio: no JVD, regular rate, regular rhythm Chest palpation & inspection: normal inspection of the chest Resp Effort & Inspection: normal respiratory effort, diffuse crackles, stable on5 L O2 Abd: soft, non-tender, non-distended Extremities: Warm well perfused, no edema Results - Hospitalist H&P Lab Results Labs: Laboratory Last Values Corrected WBC 10.3 X10E3/uL (3.8-11.6) 10/04/24 12:50 Uncorrected WBC Count 10.3 x10E3/uL (3.8-11.6) 10/04/24 12:50 RBC 5.29 x10E6/uL (3.60-5.00) H 10/04/24 12:50 Hgb 13.4 g/dL (11.8-15.4) 10/04/24 12:50 Hct 41.0 % (34.0-46.4) 10/04/24 12:50 MCV 77.4 fl (80-100) L 10/04/24 12:50 MCH 25.4 pg (24.7-34.3) 10/04/24 12:50 MCHC 32.7 g/dL (32.0-35.0) 10/04/24 12:50 RDW 16.3 % (11.9-15.3) H 10/04/24 12:50 Plt Count 155 x10E3/uL (150-450) 10/04/24 12:50 MPV 7.4 fl (6.3-10.7) 10/04/24 12:50 Neut % (Auto) 80.2 % (.) 10/04/24 12:50 Lymph % (Auto) 11.9 % (.) 10/04/24 12:50 [place] % (Auto) 6.8 % (.) 10/04/24 12:50 Eos % (Auto) 0.7 % (.) 10/04/24 12:50 Baso % (Auto) 0.4 % (.) 10/04/24 12:50 Nucleat RBC Rel Count 0.1 /100 WBC (0-0.5) 10/04/24 12:50 Neut # (Auto) 8.2 x10E3/uL (1.8-7.7) H 10/04/24 12:50 Lymph # (Auto) 1.2 x10E3/uL (1.00-4.8) 10/04/24 12:50 [place] # (Auto) 0.7 x10E3/uL (0.0-0.8) 10/04/24 12:50 Eos # (Auto) 0.1 x10E3/uL (0.0-0.45) 10/04/24 12:50 Baso # (Auto) 0.0 x10E3/uL (0.0-0.2) 10/04/24 12:50 Monocyte Dist Width 15.95 % (0.00-20.00) 10/04/24 12:50 PHA Creatinine Clear 95.81 10/04/24 12:50 Sodium 142 mmol/L (136-145) 10/04/24 12:50 Potassium 2.5 mmol/L (3.5-5.1) L* 10/04/24 12:50 Chloride 105 mmol/L (98-107) 10/04/24 12:50 Carbon Dioxide 27.8 mmol/L (21.0-31.0) 10/04/24 12:50 Anion Gap 11.7 mEq/L (6.0-15.0) 10/04/24 12:50 BUN 11 mg/dL (7-25) 10/04/24 12:50 Creatinine 0.66 mg/dL (0.60-1.20) 10/04/24 12:50 Est GFR (CKD-EPI) > 60.0 mL/Min 10/04/24 12:50 Glucose 100 mg/dL (70-100) 10/04/24 12:50 Calcium 8.4 mg/dL (8.6-10.3) L 10/04/24 12:50 Total Bilirubin 0.6 mg/dl (0.3-1.0) 10/04/24 12:50 AST 10 U/L (13-39) L 10/04/24 12:50 ALT 8 U/L (7-52) 10/04/24 12:50 Alkaline Phosphatase 35 U/L (34-104) 10/04/24 12:50 Total Creatine Kinase 19 U/L (30-223) L 10/04/24 12:50 Troponin I High Sens 4 ng/L (0-15) 10/04/24 12:50 B-Natriuretic Peptide 24.0 pg/mL (5-100) 10/04/24 12:50 Total Protein 6.5 gm/dL (6.4-8.9) 10/04/24 12:50 Albumin 4.1 gm/dL (3.5-5.7) 10/04/24 12:50 Globulin 2.4 gm/dL 10/04/24 12:50 Albumin/Globulin Ratio 1.7 10/04/24 12:50 Assessment & Plan Assessment/Plan (1) Acute hypokalemia: (2) Chest pain: (3) Pulmonary fibrosis: (4) Pulmonary hypertension: Plan Flash Irving is a 49 y/o F h/o interstitial lung disease, pulmonary hypertension,on remodulin pump and sildenafil, 4 to 5 L O2 at rest and 6 with exertion, following with Dr. Santos as well as community health specialist in [facility], presented to [facility] ER from home with sudden onset shortness of breath chest discomfort, medicine called for admission. 1. Chest discomfort in the setting of ILD and recent sick contacts - In the ER, WBC 10.3, hgb 13.4, K 2.5, HsTroponin I 6, no EKG changes. CT chestshowed no evidence of pneumothorax, continued L sided bullae and bilateral honeycombing. - Does endorse some congestion for the past 2 days, some sick contacts - suspected viral upper respiratory tract infection, respiratory viral panel ordered - will consult pulmonology given medical complexity involving remodulin pump andto assess need for echo 2. Chronic conditions: interstitial lung disease, pulmonary hypertension, on remodulin pump and sildenafil, 4 to 5 L O2 at rest and 6 with exertion - continue home meds - pulm consult as above to determine need for adjusting prednisone Diet: regular Daily Labs: CBC, BMP Lines/Drains: PIV DVT ppx: Lovenox Code status: Full Status: observation IP vs OBS Justification Based on differential dx, clinical care plan, and risk of adverse events, if untreated, in my clinical judgement this patient requires an acute care setting as: OBSERVATION because of an expectation of an under 2 midnight stay. Estimated length of stay (# of days): 2 Documented By: Paddy Wiggins MD 10/04/24 1558 Signed By: <Electronically signed by Paddy Wiggins MD> 10/04/24 1708 [facility] Work Phone: History general Narrative - ReportedNortZappRx Other History general Narrative - Reported* Type Description Date Medical History polymyositis Medical History pulmonary fibrosis Medical History melanoma Medical History pulmonary hypertension Surgical History bronchoscopy Surgical History muscle biopsy Surgical History melanoma excision Hospitalization History [facility] edema 2020 Hospitalization History [facility] spontaneous pneumot horax 02/2019 Hospitalization History [facility] spontaneous pneumotho rax 04/2019 [facility] Other Hispm[facility] general Narrative - Reported* Type Description Date Medical History polymyositis Medical History pulmonary fibrosis Medical History melanoma Medical History pulmonary hypertension Medical History interstitial lung disease Medical History edema Surgical History bronchoscopy Surgical History muscle biopsy Surgical History melanoma excision Surgical History left eye surgery x 2 Hospitalization History [facility] edema 2020 Hospitalization History [facility] spontaneous pneumot horax 02/2019 Hospitalization History [facility] spontaneous pneumotho rax 04/2019 [facility] Other Progress note Author Son Chávez [facility] May 12, 2024 1:18pm Note Date/Time May 12, 2024 1:18pm [facility] [address] [place], [place] [id number] Pulmonology Progress Note Signed Patient: Flash Irving MR#: [id number] : 1975 Acct:[id number] Age/Sex: 49 / F Adm Date: 4 Loc: Room: [address] [place] [address] Type: ADM IN Attending Dr: Letitia Cruz MD Copies to: ~ Date of Service: 05/12/2024 Subjective Subjective Narrative: Feels better with improvement in her shortness of breath and cough. Remains on 5 L via nasal cannula which is her baseline. Reports improvement in lower extremity edema as well. Exam Physical Exam Vital Signs: Temp Pulse Resp BP Pulse Ox O2 Del Method O2 Flow Rate 98.2 F 95 18 130/77 96 Nasal Cannula 5 05/12/24 07:51 05/12/24 12:16 05/12/24 12:16 05/12/24 12:16 05/12/24 12:16 05/12/24 12:16 05/12/24 12:16 Narrative: General: Awake and alert, appears in no acute respiratory distress Neck: Supple. Pulmonary: Diminished breath sounds to both lung domínguez with soft bibasilar crackles. Cardiovascular: Regular rate and rhythm. No murmurs Abdomen: Soft, nontender and nondistended. Extremities: Minimal lower extremity edema. Objective Intake and Output I&O - Last 24 Hours: Intake & Output 05/11/24 05/12/24 05/12/24 23:59 07:59 15:59 Intake Total 760 / 1360 100 / 100 Output Total 1150 / 2350 Balance -390 / -990 100 / 100 Weight 74.6 kg Labs 05/11/24 05:12 05/12/24 06:20 Assessment/Plan Assessment/Plan (1) Acute and chronic respiratory failure: (2) ILD (interstitial lung disease): (3) Pulmonary hypertension: Plan Hospital day #6 for patient with known interstitial lung disease and pulmonary hypertension on multiple immunosuppressants including prednisone at 5 mg daily and CellCept at 1000 mg 3 times daily in addition to remodulin admitted for worsening hypoxemia and increasing cough with increase in volume of sputum production without significant purulence. Treated with diureses and increasing her dose of steroids with slow improvement in her respiratory status. Clinically appears to be close to baseline at this point back on 5 L via nasal cannula. Feels ready to go home. Okay for discharge from a pulm standpoint and a tapering dose of systemic steroids and follow-up with Dr. Santos as an outpatient. Discussed above with the patient. Documented By: Son Chávez MD 05/12/24 1315 Signed By: <Electronically signed by Son Chávez MD> 05/12/24 1318 [facility] Work Phone: Reason for referral (narrative)No reason for referral [facility] Work Phone: Summary Purpose Family History No Family History Records Found Relationship Condition Age at Onset Recorded Date/T mauricio Not Specified Diabetes mellitus Unknown Hypertension Unknown Relationship Condition Age at Onset Recorded Date/T mauricio Not Specified Diabetes mellitus Unknown Hypertension Unknown Not Specified Hypertension Unknown Diabetes mellitus Unknown Relationship Condition Age at Onset Recorded Date/T mauricio mother Diabetes mellitus Unknown Hypertension Unknown Relationship Condition Age at Onset Recorded Date/T mauricio mother Diabetes mellitus Unknown Hypertension Unknown father Heart disease Unknown Relationship Condition Age at Onset Recorded Date/T mauricio mother Diabetes mellitus Unknown Hypertension Unknown Malignant neoplasm Unknown father Heart disease Unknown maternal grandmother Malignant neoplasm Unknown Advance Directives No Advanced Directives Records Found Advance Directive Response Recorded Date/ Time Advance Directives No September 03, 2017 2:03pm Advance Directive Response Recorded Date/ Time Advance Directives No September 03, 2017 1:03pm Chief Complaint and Reason for Visit Chief Complaint M33.20 E55.9 R53.82 Z00.0 J84.10 J84.9 Chief Complaint Z12.31 Chief Complaint Z12.31 z00.00 e55.9 z79.899 Chief Complaint Z12.31 z00.00 e55.9 z79.899 e87.6 Chief Complaint z51.81 Chief Complaint 6 Mo F/U Pulm Htn, C hronic Ild, Polymyos z51.81 z12.31 Chief Complaint 6 Mo F/U Pulm Htn, C hronic Ild, Polymyos z51.81 z12.31 chest pain, sob chest pain, sob chest pain, sob i27.21 j84.10 m33.20 Z02.89 Reason for Visit Acute and chronic re spiratory failure Hypokalemia Hypomagnesemia ILD (interstitial lung disease) Pulmonary fibrosis Pulmonary hypertension Chief Complaint CEA: 6 mo f/u Pulm H TN, Chronic ILD Reason for Visit ILD (interstitial lia ng disease) Polymyositis Pulmonary hypertension Chief Complaint CEA: 6 mo f/u Pulm H TN, Chronic ILD z51.81 M33.20 Left Cataract Reason for Visit ILD (interstitial lia ng disease) Polymyositis Pulmonary hypertension Chief Complaint CEA: 6 mo f/u Pulm H TN, Chronic ILD z51.81 M33.20 Left Cataract Pneumonia Pneumonia Reason for Visit ILD (interstitial lia ng disease) Polymyositis Pulmonary hypertension Acute and chronic respiratory failure Hypokalemia ILD (interstitial lung disease) Pulmonary hypertension Chief Complaint Admit Date Left Cataract April 13, 2024 10 :30am Left Cataract April 27, 2024 10:15am Pneumonia May 06, 2024 6:01pm Pneumonia May 07, 2024 9:27am Reason for Visit Admit Date Acute and chronic respiratory failure Se ptember 2023 6:01pm Hypokalemia May 06, 2024 6:01pm ILD (interstitial lung disease) Septembe r 2023 6:01pm Pulmonary hypertension May 06, 024 6:01pm Chief Complaint Admit Date i27.21 M35.9 August 14, 2024 7:27am Chief Complaint Admit Date i27.21 M35.9 August 14, 2024 7:27am LGSIL HPV+ September 27, 2024 9:00am Shortness of Breath October 04, 2024 4:23pm Reason for Visit Admit Date Acute hypokalemia October 04, 2024 4:23pm Chest pain October 04, 2024 4:23pm Pulmonary fibrosis October 04, 2024 4:23pm Pulmonary hypertension October 04 4:23pm Chief Complaint Admit Date i27.21 M35.9 August 14, 2024 7:27am LGSIL HPV+ September 27, 2024 9:00am Shortness of Breath October 04, 2024 4:23pm Shortness of Breath October 05, 2024 2:41pm Reason for Visit Admit Date Acute hypokalemia October 04, 2024 4:23pm Chest pain October 04, 2024 4:23pm Pulmonary fibrosis October 04, 2024 4:23pm Pulmonary hypertension October 04 4:23pm Shortness of breath October 04, 2024 4:23pm Chief Complaint Admit Date i27.21 M35.9 August 14, 2024 7:27am LGSIL HPV+ September 27, 2024 9:00am Shortness of Breath October 04, 2024 4:23pm Shortness of Breath October 05, 2024 2:41pm I27.21 M35.9 November 09, 2024 7:4 2am Reason for Visit Admit Date Chest pain October 04, 2024 4:23pm Pulmonary fibrosis October 04, 2024 4:23pm Pulmonary hypertension October 04 4:23pm Acute hypokalemia October 04, 2024 4:23pm Shortness of breath October 04, 2024 4:23pm Chief Complaint Admit Date i27.21 M35.9 August 14, 2024 7:27am LGSIL HPV+ September 27, 2024 9:00am Shortness of Breath October 04, 2024 4:23pm Shortness of Breath October 05, 2024 2:41pm I27.21 M35.9 November 09, 2024 7:4 2am z12.31 November 10, 2024 2:5 8pm Chief Complaint Admit Date LGSIL HPV+ September 27, 2024 9:00am Shortness of Breath October 04, 2024 4:23pm Shortness of Breath October 05, 2024 2:41pm I27.21 M35.9 November 09, 2024 7:4 2am z12.31 November 10, 2024 2:5 8pm CEA: 6 mo f/u ILD, Pulm HTN November 28, 2024 1:37pm Reason for Visit Admit Date Chest pain October 04, 2024 4:23pm Pulmonary fibrosis October 04, 2024 4:23pm Pulmonary hypertension October 04 4:23pm Acute hypokalemia October 04, 2024 4:23pm Shortness of breath October 04, 2024 4:23pm Polymyositis November 28, 2024 1:3 7pm Pulmonary hypertension November 28, 2024 1:37pm ILD (interstitial lung disease) November 282024 1:37pm Chief Complaint Admit Date LGSIL HPV+ September 27, 2024 9:00am Shortness of Breath October 04, 2024 4:23pm Shortness of Breath October 05, 2024 2:41pm I27.21 M35.9 November 09, 2024 7:4 2am z12.31 November 10, 2024 2:5 8pm CEA: 6 mo f/u ILD, Pulm HTN November 28, 2024 1:37pm I27.21 M35.9 I51.7 December 12, 2024 10: 44am Chief Complaint Admit Date I27.21 M35.9 November 09, 2024 7:4 2am z12.31 November 10, 2024 2:5 8pm CEA: 6 mo f/u ILD, Pulm HTN November 28, 2024 1:37pm I27.21 M35.9 I51.7 December 12, 2024 10: 44am I27.21, M35.9, I51.7 January 01, 2025 7:58 am Chest Pain, SOB January 15, 2025 3:53a m Reason for Visit Admit Date Polymyositis November 28, 2024 1:3 7pm Pulmonary hypertension November 28, 2024 1:37pm ILD (interstitial lung disease) November 282024 1:37pm Chief Complaint Admit Date z12.31 November 10, 2024 2:5 8pm CEA: 6 mo f/u ILD, Pulm HTN November 28, 2024 1:37pm I27.21 M35.9 I51.7 December 12, 2024 10: 44am I27.21, M35.9, I51.7 January 01, 2025 7:58 am Chest Pain, SOB January 15, 2025 3:53a m z79.899 February 07, 2025 7:52 am Chief Complaint Admit Date Chest Pain, SOB January 15, 2025 3:53a m z79.899 February 07, 2025 7:52 am Z79.52 April 05, 2025 8: 51am Additional Source Comments INFORMATION SOURCE (unrecogn ized section and content) DATE CREATED AUTHOR 08/11/2018 [facility] DATE CREATED AUTHOR AUTHOR'S ORGANIZ ATION 08/05/2024 [facility] DATE CREATED AUTHOR AUTHOR'S ORGANIZ ATION 04/11/2025 [facility] DATE CREATED AUTHOR AUTHOR'S ORGANIZ ATION 04/13/2025 [facility] EPIC REASON FOR VISIT (unrecogniz ed section and content) Reason Comments Received Outside Medical Records Reason Comments Hospital Follow-up Pt is here for [facility] follow-up from [facility] on 05/12. Discharge summary is in her chart. Reason Comments Cataract Evaluation Reason Comments Pre-Op Exam Reason Comments Post-op (Ophthalmology) Left Eye 1 day Reason Comments Post-op (Ophthalmology) Right Eye Reason Comments Pseudophakia Follow Up Reason Onset Date Comments Med Refill 07/17/2024 Reason Comments Post Op 1month Reason Comments 3 month follow up Pt. Is here for 3 mo nth follow up and review labs. Pt. States she has had shortness of breath. Reason Comments Gynecologic Exam LMP: 09/06/24 regular , monthly, light flow, last 3-4 daysBC: Nortrel - satisfied.Last pap 09-08-23 neg, HPV pos.Last mammogram 09-30-23 [facility]. Denies breast, urinary, or bowel concerns. Breast Problem Would like to discus s mom's recent diagnosis of breast cancer 07/2024, age 76. Had lumpectomy- stage 1. Meeting with oncologist, waiting for [facility] to determine treatment. Reason Comments Hospital Follow-up Patient presents tod ay for an [facility] 10/04/24-10/06/24 follow up for SOB and potassium deficiency. She is still feeling tired and fatigued. Reason Comments Annual Exam Reason Comments Abnormal Pap Smear Repeat pap.Last pap 09-19-24 LGSIL, HPV pos. Colpo 09-27-24. Care Teams (unrecognized sec tion and content) Team Status: Inactive Member Role Status Dates Jabari Celeste , DO Primary Care Provider, Mateo darby Active Team Status: Active Member Role Status Dates Jabari Celeste , DO Primary Care Provider Active Team Status: Inactive Member Role Status Dates Jabari Celeste , Primary Care Provider Active Gennaro Londono , DO Attending Provider Active Team Status: Inactive Member Role Status Dates Jabari Celeste DO Primary Care Provider Active Start: September 10, 2023 End: September 10, 2023 NON STAFF Attending Provider Active Start: kaci 2023 End: September 10, 2023 Team Status: Inactive Member Role Status Dates Chilo Santos MD Attending Provider Active Start: September 07, 2023 End: September 07, 2023 Team Status: Inactive Member Role Status Dates Jabari Celeste DO Primary Care Provider Active Start: September 10, 2023 End: September 10, 2023 Latha Bhagat MD Attending Provider Active Sta rt: September 10, 2023 End: September 10, 2023 Team Status: Inactive Member Role Status Dates Jabari Celeste DO Primary Care Provider Active Start: September 30, 2023 End: September 30, 2023 Gennaro Londono DO Attending Provider Active Start: September 30, 2023 End: September 30, 2023 Team Status: Inactive Member Role Status Dates Jabari Celeste DO Primary Care Provider Active Start: October 12, 2023 End: October 16, 2023 Dariel Hicks Jr, MD Emergency Provider Active Start: October 12, 2023 End: October 16, 2023 Jazmin Snyder MD Admit Provider, Atte nding Provider Active Start: October 12, 2023 End: October 16, 2023 Shirley Nicole APRN ACNP- Other Provider Active Start: October 12, 2023 End: October 16, 2023 Cherelle Trujillo MD Other Provider Active Start: ebrucement 2023 End: October 16, 2023 Chilo Santos MD Other Provider Active Start: October 12, 2023 End: October 16, 2023 Norah Mullins MD Other Provider Active St art: October 12, 2023 End: October 16, 2023 Tico Beaulieu DO Other Provider Active Start: October 12, 2023 End: October 16, 2023 Nithya Roberts MD Other Provider Active Start: October 12, 2023 End: October 16, 2023 aMt Rodriguez MD Other Provider Active Start: October 12, 2023 End: October 16, 2023 Hebert Payne MD Other Provider Active Start: ebruary 2023 End: October 16, 2023 Rohith Avina DO Other Provider Active Start: October 12, 2023 End: October 16, 2023 Demetri Gonzalez DO Other Provider Active Start: October 12, 2023 End: October 16, 2023 Team Status: Active Member Role Status Dates Jabari Celeste DO Primary Care Provider Active Start: October 12, 2023 Dariel Hicks Jr, MD Emergency Provider Active Start: October 12, 2023 Jazmin Snyder MD Admit Provider, Atte nding Provider, Other Provider Active Start: October 12, 2023 Team Status: Active Member Role Status Dates Jabari Celeste DO Primary Care Provider Active Start: October 12, 2023 Dariel Hicks Jr, MD Emergency Provider Active Start: October 12, 2023 Jazmin Snyder MD Admit Provider, Othe r Provider Active Start: October 12, 2023 Shirley Nicole APRN [facility] [place]- Other Provider Active Start: October 12, 2023 Cherelle Trujillo MD Other Provider Active Start: ebruary 2023 Chilo Santos MD Other Provider Active Start: October 12, 2023 Norah Mullins MD Other Provider Active St art: October 12, 2023 Tico Beaulieu DO Other Provider Active Start: October 12, 2023 Nithya Roberts MD Other Provider Active Start: October 12, 2023 Mat Rodriguez MD Other Provider Active Start: October 12, 2023 Hebert Payne MD Other Provider Active Start: ebruary 2023 Rohith Avina DO Attending Provider, Other Provider Active Start: October 12, 2023 Demetri Gonzalez DO Other Provider Active Start: October 12, 2023 Team Status: Inactive Member Role Status Dates Jabari Celeste DO Primary Care Provide r, Attending Provider Active Start: November 26, 2023 End: November 26, 2023 Team Status: Inactive Member Role Status Dates Jabari Celeste DO Primary Care Provider Active Start: March 07, 2024 End: March 07, 2024 Chilo Santos MD Attending Provider Active Start: March 07, 2024 End: March 07, 2024 [facility] Active Start : March 07, 2024 End: March 07, 2024 Team Status: Inactive Member Role Status Dates Jabari Celeste DO Primary Care Provider Active Start: March 10, 2024 End: March 10, 2024 Latha Bhagat MD Attending Provider Active Sta rt: March 10, 2024 End: March 10, 2024 Team Status: Inactive Member Role Status Dates Jabari Celeste DO Primary Care Provider Active Start: April 13, 2024 End: April 13, 2024 Jackson Borrero MD Attending Provider Active Start: April 13, 2024 End: April 13, 2024 Mill Supervisor Relationship Specialty Start Date End Date Jabari Celeste DO [address] [place] [address] PCP - General Internal Medicine 05/11/14 Team Status: Inactive Member Role Status Dates Jabari Celeste DO Primary Care Provider Active Start: May 06, 2024 End: May 12, 2024 Mira Sun MD Admit Provider Active Start : May 06, 2024 End: May 12, 2024 Chilo Santos MD Other Provider Active Start: May 06, 2024 End: May 12, 2024 Letitia Cruz MD Attending Provider Active Sta rt: May 06, 2024 End: May 12, 2024 Team Status: Active Member Role Status Dates Jabari Celeste DO Primary Care Provider Active Start: May 07, 2024 Mira Sun MD Admit Provider Active Start : May 07, 2024 Letitia Cruz MD Other Provider Active Start: May 07, 2024 Chilo Santos MD Attending Pr ovider, Other Provider Active Start: May 07, 2024 Mill Supervisor Relationship Specialty Start Date End Date Jabari Celeste DO [address] [place] [address] PCP - [facility] [place] [facility] 01/14/15 08/15/99 Jabari Celeste DO [address] [place] [address] PCP - General Internal Medicine 12/22/22 Mill Supervisor Relationship Specialty Start Date End Date Jabari Celeste DO [address] [place] [address] PCP - General Internal Medicine 05/11/14 Mill Supervisor Relationship Specialty Start Date End Date Jabari Celeste DO [address] [facility] [address] [place] [address] PCP - General Internal Medicine 05/11/14 Mill Supervisor Relationship Specialty Start Date End Date Jabari Celeste DO [address] [facility] [address] [place] [address] PCP - General Internal Medicine 05/11/14 Team Status: Inactive Member Role Status Dates Jabari Celeste DO Primary Care Provider Active Start: April 27, 2024 End: April 27, 2024 Jackson Borrero MD Attending Provider Active Start: April 27, 2024 End: April 27, 2024 Team Status: Active Member Role Status Dates Jabari Celeste DO Primary Care Provider Active Start: May 07, 2024 Talib Rankin DO Attending Provider Active Sta rt: May 07, 2024 Mill Supervisor Relationship Specialty Start Date End Date Jabari Celeste DO [address] [facility] [address] [place] [address] PCP - General Internal Medicine 05/11/14 Mill Supervisor Relationship Specialty Start Date End Date Jabari Celeste DO [address] [facility] [address] [place] [address] PCP - General Internal Medicine 05/11/14 Mill Supervisor Relationship Specialty Start Date End Date Jabari Celeste DO [address] [place] [address] PCP - General Internal Medicine 05/11/14 Mill Supervisor Relationship Specialty Start Date End Date Jabari Celeste DO [address] [place] [address] PCP - [facility] [place] [facility] 01/14/15 08/15/99 Jabari Celeste DO [address] [place] [address] PCP - General Internal Medicine 12/22/22 Mill Supervisor Relationship Specialty Start Date End Date Jabari Celeste DO [address] [place] [address] PCP - [facility] [place] [facility] 01/14/15 08/15/99 Jabari Celeste DO [address] [place] [address] PCP - General Internal Medicine 12/22/22 Mill Supervisor Relationship Specialty Start Date End Date Jabari Celeste, [address] [place] [address] PCP - General Internal Medicine 05/11/14 Mill Supervisor Relationship Specialty Start Date End Date Jabari Celeste, [address] [place] [address] PCP - General Internal Medicine 05/11/14 Mill Supervisor Relationship Specialty Start Date End Date Jabari Celeste DO [address] [place] [address] PCP - [facility] [place] [employer] 01/14/15 08/15/99 Jabari Celeste DO [address] [place] [address] PCP - General Internal Medicine 12/22/22 Mill Supervisor Relationship Specialty Start Date End Date Jabari Celeste DO [address] [place] [address] PCP - [facility] [place] [employer] 01/14/15 08/15/99 Jabari Celeste DO [address] [place] [address] PCP - General Internal Medicine 12/22/22 Team Status: Inactive Member Role Status Dates Jabari Celeste DO Primary Care Provide r, Attending Provider Active Start: August 14, 2024 End: August 14, 2024 Latha Bhagat MD Other Provider Active Start: August 14, 2024 End: August 14, 2024 Team Status: Inactive Member Role Status Dates Gennaro Londono DO Attending Provider Active Start: September 27, 2024 End: September 27, 2024 Team Status: Inactive Member Role Status Dates Gennaro Londono DO Attending Provider Active Start: September 27, 2024 End: September 27, 2024 Jabari Celeste DO Primary Care Provider Active Start: September 27, 2024 End: September 27, 2024 Team Status: Active Member Role Status Dates Jabari Celeste DO Primary Care Provider Active Start: October 04, 2024 Mat Perez MD Emergency Provider Active Star t: October 04, 2024 Paddy Wiggins MD Admit Provider, Atte nding Provider Active Start: October 04, 2024 Son Chávez MD Other Provider Active Start: Twan [email or web address] 2024 Team Status: Inactive Member Role Status Dates Jabari Celeste DO Primary Care Provider Active Start: October 04, 2024 End: October 06, 2024 Mat Perez MD Emergency Provider Active Star t: October 04, 2024 End: October 06, 2024 Paddy Wiggins MD Admit Provider, Atte nding Provider Active Start: October 04, 2024 End: October 06, 2024 Son Chávez MD Other Provider Active Start: Twan álvarez 2024 End: October 06, 2024 Team Status: Active Member Role Status Dates Jabari Celeste DO Primary Care Provider Active Start: October 05, 2024 Mat Perez MD Emergency Provider Active Star t: October 05, 2024 Paddy Wiggins MD Admit Provider, Other Provider Activ e Start: October 05, 2024 Son Chávez MD Attending Provider, Other Provider Active Start: October 05, 2024 Mill Supervisor Relationship Specialty Start Date End Date Jabari Celeste DO [address] [place] [address] PCP - [facility] [place] [employer] 01/14/15 08/15/99 Jabari Celeste DO [address] [place] [address] PCP - General Internal Medicine 12/22/22 Mill Supervisor Relationship Specialty Start Date End Date Jabari Celeste DO [address] [place] [address] PCP - [facility] [place] [employer] 01/14/15 08/15/99 Jabari Celeste DO [address] [place] [address] PCP - General Internal Medicine 12/22/22 Team Status: Active Member Role Status Dates Jabari Celeste DO Primary Care Provider Active Start: October 05, 2024 Mat Perez MD Emergency Provider Active Star t: October 05, 2024 Paddy Wiggins MD Admit Provider, Othe r Provider Active Start: October 05, 2024 Son Chávez MD Attending Provider, Other Provider Active Start: October 05, 2024 Chilo Santos MD Active Start: October 05, 2024 Team Status: Inactive Member Role Status Dates Jabari Celeste DO Primary Care Provider Active Start: November 09, 2024 End: November 09, 2024 Ernst Boone MD Attending Provider Active St art: November 09, 2024 End: November 09, 2024 Team Status: Inactive Member Role Status Dates Jabari Celeste DO Primary Care Provider Active Start: November 10, 2024 End: November 10, 2024 Gennaro Londono DO Attending Provider Active Start: November 10, 2024 End: November 10, 2024 Team Status: Inactive Member Role Status Dates Jabari Celeste DO Primary Care Provider Active Start: November 28, 2024 End: November 28, 2024 Chilo Santos MD Attending Provider Active Start: November 28, 2024 End: November 28, 2024 [facility] [employer] [facility] Active Start : November 28, 2024 End: November 28, 2024 Team Status: Inactive Member Role Status Dates Jabari Celeste DO Primary Care Provider Active Start: December 12, 2024 End: December 12, 2024 Ernst Boone MD Attending Provider Active St art: December 12, 2024 End: December 12, 2024 Team Status: Inactive Member Role Status Dates Jabari Celeste DO Primary Care Provider Active Start: January 01, 2025 End: January 01, 2025 Ernst Boone MD Attending Provider Active St art: January 01, 2025 End: January 01, 2025 Team Status: Inactive Member Role Status Dates Jabari Celeste DO Primary Care Provider Active Start: January 15, 2025 End: January 15, 2025 Jaime Meeks DO Emergency Provider Active Start: January 15, 2025 End: January 15, 2025 Team Status: Inactive Member Role Status Yair Celeste DO Primary Care Provider Active Start: November 28, 2024 End: November 28, 2024 Chilo Santos MD Attending Provider Active Start: November 28, 2024 End: November 28, 2024 Team Status: Inactive Member Role Status Dates Jabari Celeste DO Primary Care Provider Active Start: February 07, 2025 End: February 07, 2025 Jabari Celeste DO Attending Provider Active St art: February 07, 2025 End: February 07, 2025 Jc Astudillo RN MSN ANP-C Referring Provider Act danny Start: February 07, 2025 End: February 07, 2025 Mill Supervisor Relationship Specialty Start Date End Date Jabari Celeste DO [address] [place] [address] PCP - [facility] [place] [employer] 01/14/15 08/15/99 Jabari Celeste DO [address] [place] [address] PCP - General Internal Medicine 12/22/22 Mill Supervisor Relationship Specialty Start Date End Date Jabari Celeste DO [address] [place] [address] PCP - [facility] [place] [employer] 01/14/15 08/15/99 Jabari Celeste DO [address] [place] [address] PCP - General Internal Medicine 12/22/22 Team Status: Active Member Role Status Dates Bunny Nation MD Primary Care Provider Active Team Status: Inactive Member Role Status Dates Juliane Whitney MD Attending Provider Active Start: April 05, 2025 End: April 05, 2025 Bunny Nation MD Primary Care Provider Active St art: April 05, 2025 End: April 05, 2025 Goals (unrecognized section and content) Goals may be documented in a n alternate section Source Comments (unrecognize d section and content) In the event this informatio n is protected by the Federal Confidentiality of Alcohol and Drug Abuse Patient Records regulations: The Federal rules restrict any use of the information to criminally investigate or prosecute any alcohol or drug abuse patient.[facility] the event this information is protected by the Federal Confidentiality of Alcohol and Drug Abuse Patient Records regulations: The Federal rules restrict any use of the information to criminally investigate or prosecute any alcohol or drug abuse patient.[facility] the event this information is protected by the Federal Confidentiality of Alcohol and Drug Abuse Patient Records regulations: The Federal rules restrict any use of the information to criminally investigate or prosecute any alcohol or drug abuse patient.[facility] the event this information is protected by the Federal Confidentiality of Alcohol and Drug Abuse Patient Records regulations: The Federal rules restrict any use of the information to criminally investigate or prosecute any alcohol or drug abuse patient.[facility] the event this information is protected by the Federal Confidentiality of Alcohol and Drug Abuse Patient Records regulations: The Federal rules restrict any use of the information to criminally investigate or prosecute any alcohol or drug abuse patient.[facility] the event this information is protected by the Federal Confidentiality of Alcohol and Drug Abuse Patient Records regulations: The Federal rules restrict any use of the information to criminally investigate or prosecute any alcohol or drug abuse patient.[facility] the event this information is protected by the Federal Confidentiality of Alcohol and Drug Abuse Patient Records regulations: The Federal rules restrict any use of the information to criminally investigate or prosecute any alcohol or drug abuse patient.[facility] the event this information is protected by the Federal Confidentiality of Alcohol and Drug Abuse Patient Records regulations: The Federal rules restrict any use of the information to criminally investigate or prosecute any alcohol or drug abuse patient.[facility] the event this information is protected by the Federal Confidentiality of Alcohol and Drug Abuse Patient Records regulations: The Federal rules restrict any use of the information to criminally investigate or prosecute any alcohol or drug abuse patient.[facility] the event this information is protected by the Federal Confidentiality of Alcohol and Drug Abuse Patient Records regulations: The Federal rules restrict any use of the information to criminally investigate or prosecute any alcohol or drug abuse patient.[facility] FOR RECORDS PERTAINING TO PATIENTS WHO ARE OR HAVE BEEN ENROLLED IN A CHEMICAL DEPENDENCY/SUBSTANCEABUSE PROGRAM, SOME INFORMATION MAY BE OMITTED. This clinical summary was aggregated from multiple sources. Caution should be exercised in using it in the provision of clinical care. This summary normalizes information from multiple sources, and as a consequence, information in this document may materially change the coding, format and clinical context of patient data. In addition, data may be omitted in some cases. CLINICAL DECISIONS SHOULD BE BASED ON THE PRIMARY CLINICAL RECORDS. [facility] [employer] [facility]. provides no warranty or guarantee of the accuracy or completeness of information in this document.
== END 2025-04-18 15:18 | disposition home or self-care (01) ==
PROVIDERS: Emergency Provider Student in an Organized Health Care Education/Training Program; PCP Internal Medicine
DX: L02.211 Cutaneous abscess of abdominal wall (principal); L03.311 Cellulitis of abdominal wall; I27.21 Secondary pulmonary arterial hypertension
CPT/HCPCS: 99284

== ENCOUNTER 2025-04-25 23:02 | Emergency (ER) | payer OTHER, SELFPAY ==
[2025-04-25] VITALS (7 sets, daily range): BP systolic 121; BP diastolic 71–80; PULSE 123–148; TEMP 36.6; O2SAT 91–95; BMI 28.3
--- OUTSIDE RECORDS SUMMARY | 2025-04-25 23:21 | XMS_ITS | CCD ---
Author Organization [facility] Inform ion Partnership [facility] Care Team Providers Care Chief Business Development Officer Name Role Phone Fermin Pandya Unavailable Unavailable Stacy Moody Unavailable Unavailab le Stacy Moody Unavailable Unavailab le *SELF, REFERRED Unavailable Unavailable Fermin Pandya Unavailable Unavailable Stacy Moody Unavailable Unavailab le Chilo Santos Unavailable DO Jabari Celeste Primary Care Provider [phone] DO Jabari Celeste Attending Provider DO Jabari Celeste Primary Care Provider DO Gennaro Londono Attending Provider DO Jabari Celeste Attending Provider [phone] DO Jabari Celeste Primary Care Provider NON STAFF Attending Provider Unavailable MD Latha Bhagat Attending Provider DO Gennaro Londono Attending Provider DO Jabari Celeste Primary Care Provider [phone] MD Latha Bhagat Attending Provider [phone] DO Gennaro Londono Attending Provider MD Dariel Hicks Jr Emergency Provider MD Jazmin Snyder Admit Provider MD Jazmin Snyder Attending Provider AURORA Nicole Other Provider MD Cherelle Trujillo Other Provider MD Chilo Santos Other Provider MD Norah Mullins Other Provider DO Tico Beaulieu Other Provider [phone] MD Nithya Roberts Other Provider MD Mat Rodriguez Other Provider MD Hebert Payne Other Provider DO Rohith Avina Other Provider DO Demetri Gonzalez Other Provider DO Jabari Celeste Attending Provider DO Jabari Celeste Primary Care Provider [phone] MD Olayinka Pulhellen P Attending Provider [phone] MD Jackson Borrero Attending Provider Jabari Celeste DO Primary Care Provider MD Mira Sun Admit Provider MD Chilo Santos Other Provider [phone] MD Letitia Cruz Attending Provider Jabari Celeste DO Unavailable Jabari Celeste DO Primary Care Provider Jabari Celeste DO Primary Care Provider [phone] Jackson Borrero MD Attending Provider Mira Sun MD Admit Provider [phone] Chilo Santos MD Other Provider Letitia Cruz MD Attending Provider [phone] BELKIS ARANDA Attending Unavailable JABARI CELESTE [...] e Jabari Celeste DO Primary Care Provider [phone] Jabari Celeste DO Attending Provider Latha Bhagat MD Other Provider Gennaro Londono DO Attending Provider [phone] Mat Perez MD Emergency Provider [phone] Paddy Wiggins MD Admit Provider Paddy Wiggins MD Attending Provider [phone] Son Chávez MD Other Provider Jabari Celeste DO Primary Care Provider Jabari Celeste DO Attending Provider [phone] Latha Bhagat MD Other Provider Gennaro Londono DO Attending Provider Mat Perez MD Emergency Provider Paddy Wiggins MD Admit Provider Paddy Wiggins MD Attending Provider Son Chávez MD Other Provider Ernst Boone MD Attending Provider [phone] Jabari Celeste DO Primary Care Provider Jabari Celeste DO Primary Care Provider Gennaro Londono DO Attending Provider Jaime Meeks DO Emergency Provider Unavai bridget Celeste DO, [place] Primary Care Provider [phone] Danielle TURNER, Chilo Childs Attending Provider Ernst Boone MD Attending Provider Jaime Meeks DO Emergency Provider [facility] bridget Celeste DO, Jabari Attending Provider Jc Astudillo RN Referring Provider Roula RIZO, [place] Primary Care Provider Devonte TURNER, Juliane Attending Provider Rios TURNER, Bunny [facility] Care Provider [phone] Jabari Celeste Attending Unavailable Jc Astudillo Referring Unavailable [facility] Primary Care Unavailable [facility] Admitting Unavailable Juliane Whitney Attending Unavailabl Juliane Marcelino Ad[facility] Un[facility] Primary Care Unavailable OlayinkaLatha johnson P Consulting Unavailable [facility] Admitting Unavailable [facility] Primary Care Unavailable Gennaro Londono Attending Unavailable Gennaro Londono Admitting Unavailable Ernst Boone Attending Unavailable Ernst Boone Admitting Unavailable [facility] Primary Care Unavailable [facility] Primary Care Unavailable Jackson Borrero Admitting Unavailable Jackson Borrero Attending Unavailable Gennaro Londono Attending Unavailable Gennaro Londono Admitting Unavailable [facility] Primary Care Unavailable Ernst Boone Attending Unavailable Ernst Boone Admitting Unavailable [facility] Primary Care Unavailable [facility] Primary Care Unavailable Letitia Cruz Attending Unavailable Mira Sun Admitting Unavailable Chilo Santos Consulting Unavaila Paddy Frank Attending Unavailable Paddy Wiggins Admitting Unavailable [facility] Primary Care Unavailable Kyler Basem Consulting Unavailable [facility] Primary Care Unavailable Jackson Borrero Admitting Unavailable [...] Date of Onset Reaction(s) Facility (3 sources) Sotatercept-Sausage Smoker k Propensity to adverse reactions Shortness of [...] the event of a Fluress shortage, administer Dasha-Fluor 1 drop into both eyes as directed [...] tablet 3 09/19/2024 Active Start: 10-12-2023 take [id number] 2857 ug by mouth once daily in [...] Start: 09-30-2016 take 2 tablets by mo [facility] twice daily mycophenolate Mofetil (CELLCEPT) 500 mg tablet Take 2 tablets by mouth twice daily. 120 tablet 6 09/30/2016 Active Oxygen (20 sources) Start: 03-07-2024 oxygen (O2) ga s 03/07/2024 Active Start: 03-07-2024 Oxygen Active 0 .Route March 07, 2024 1:57pm As directed [employer] she has a concentrator 5 liters at rest 6 liters with activity Start: 02-28-2024 End: 03-07-2024 Oxygen Discontinued 0 .Route February 28, 2024 12:00am March 07, 2024 1:58pm As directed [employer] she has a concentrator oxygen (O2) gas Inhale continuously. Active Oxygen 4 liters (10 sources) Oxygen 4 liters continuous Active Oxygen unit (20 sources) Start: 03-07-2024 Oxygen unit Ac tive 0 .Route March 07, 2024 1:57pm As directed [employer] she has a concentrator 5 liters at rest 6 liters with activity Start: 03-07-2024 Oxygen unit Ac tive 0 .Route March 07, 2024 12:57pm As directed [employer] she has a concentrator 5 liters at rest 6 liters with activity Start: 02-28-2024 End: 03-07-2024 Oxygen unit Discontinued 0 . Route February 28, 2024 12:00am March 07, 2024 1:58pm As directed [employer] she has a concentrator Start: 02-28-2024 End: 03-07-2024 Oxygen unit Discontinued 0 . Route February 27, 2024 11:00pm March 07, 2024 12:58pm As directed [facility] she has a concentrator [...] extended release oral tablet (20 sources) Uncompetitive V-mzyzof-V-aspartate Receptor Antagonist, Sigma-1 Agonist Start: 10-16-2023 End: [...] 10:55am docusate sodium 50 mg / sennosides, mcfp 8.6 mg oral tablet (20 sources) Start: [...] (3 sources) Patient encounter status; Translations: [Other director long term care (current) drug therapy] 08-15-2024 Episodic Other aftercare (1 source) Other director long term care (current) drug therapy; Translations: [Other penitentiary (current) drug therapy] Onset: 02-07-2025 Episodic Other [...] Respiratory failure; insufficiency; arrest (adult) (20 sources) [id number] respiratory failure; Translations: [Acute and chronic respiratory [...] (20 sources) Drug therapy finding; Translations: [Other director long term care (current) drug therapy] Onset: 09-16-2017 09-16-2017 Episodic Other aftercare (16 sources) Post-discharge follow-up; Translations: [Encounter for follow-up examination after completed treatment for conditions other than malignant neoplasm] Onset: 10-21-2023 Resolved: 12-02-2023 12-02-2023 Episodic Other bone disease and musculoskeletal deformities (16 sources) Disorder of skeletal system; Translations: [Disorder of bone, unspecified] Onset: 05-30-2008 09-08-2023 Episodic Other TOGGLE PRESS OPERATOR infection and poliomyelitis (16 sources) Acute poliomyelitis; [...] tobacco or tobacco cessation products. Performed at: [facility] Lab[address] [id number] Prepress Stripper: Angel Garcia MD, Phone: [phone] NICOTINE, BLOOD ng/mL . ng/mL [facility] Comment on above: This test was develo ped and its performance characteristics determined by [facility]. It has not been cleared or approved by the Food and Drug Administration. Nicotine levels greater than 2.0 are consistent with the use of tobacco or tobacco cessation products. [facility] A1C with Estimated Average G elyse 02-07-2025 Glucose [Mass/Vol] 114 mg/dL Normal [facility] Comment on above: Result Comment: PERF ORMED BY: [facility] [address] [place] [address] PATHOLOGIST INTERN ARCHITECT BROWN LAUGHLIN M.D. Performed By: #### A 1C [facility] eA ####[address] [place] [address] [facility] Alanine aminotransferase [En zymatic activity/volume] in Serum or PlasmaOrdered By: Jabari Celeste on 02-07-2025 ALT [Catalytic activity/Vol] 6 U/L Low 7-52 [facility] Comment on above: Performed By: #### L IPID, TSH3, CMP ####[place] [id number] [place] Albumin [Mass/volume] in Ser um or Plasma by Bromocresol green (BCG) dye binding methoOrdered By: Jabari Celeste on 02-07-2025 Albumin BCG dye [Mass/Vol] 4.1 g/dL 3.5-5.7 [facility] Alkaline phosphatase [Enzyma tic activity/volume] in Serum or PlasmaOrdered By: Jabari Celeste on 02-07-2025 ALP [Catalytic activity/Vol] 43 U/L Normal 34-104 [facility] Comment on above: Performed By: #### L IPID, TSH3, CMP ####[facility] Aspartate aminotransferase [ Enzymatic activity/volume] in Serum or PlasmaOrdered By: Jabari Celeste on 02-07-2025 AST [Catalytic activity/Vol] 10 U/L Low 13-39 [facility] Comment on above: Performed By: #### L IPID, TSH3, CMP ####[place] [address] Bilirubin.total [Mass/volume ] in Serum or PlasmaOrdered By: Jabari Celeste on 02-07-2025 Bilirubin [Mass/Vol] 0.6 mg/dL Normal 0.3-1.0 [facility] Comment on above: Performed By: #### L JOE TSH3, CMP ####[place] [address] Blood estimated average gluc ose determination by estimation from glycated hemoglobinOrdered By: Jabari Celeste on 02-07-2025 Average glucose Estimated from glycated hemoglobin (Bld) [Mass/Vol] 114 mg/dL [facility] Calcium [Mass/volume] in Ser um or PlasmaOrdered By: Jabari Celeste on 02-07-2025 Calcium [Mass/Vol] 8.8 mg/dL Normal 8.6-10.3 [facility] Comment on above: Performed By: #### L IPID, TSH3, CMP ####[address] Carbon dioxide, total [Moles /volume] in Serum or PlasmaOrdered By: Jabari Celeste on 02-07-2025 CO2 [Moles/Vol] 29.4 mmol/L Normal 21.0-31.0 [facility] Comment on above: Performed By: #### L IPID, TSH3, CMP ####[place] [address] Chloride [Moles/volume] in S luz maria or PlasmaOrdered By: Jabari Celeste on 02-07-2025 Chloride [Moles/Vol] 108 mmol/L High 98-107 [facility] Comment on above: Performed By: #### L IPID, TSH3, CMP ####[facility] [address] [id number] [place] Cholesterol [Mass/volume] in Serum or PlasmaOrdered By: Jabari Celeste on 02-07-2025 Cholesterol [Mass/Vol] 151 mg/dL Normal 140-200 [facility] Comment on above: Chol less than 200 m g/dl low riskChol 201-239 mg/dl borderline riskChol 240 mg/dl and greater high risk Result Comment: Chol less than 200 mg/dl low risk Chol 201-239 mg/dl borderline risk Chol 240 mg/dl and greater high risk Performed By: #### L IPID, TSH3, CMP ####[facility] [id number] [facility] Cholesterol in HDL [Mass/vol ume] in Serum or PlasmaOrdered By: Jabari Celeste on 02-07-2025 Cholesterol in HDL [Mass/Vol] 51 mg/dL Normal 23-92 [facility] Comment on above: HDL CHOL ATP-III CLA SSIFICATION Cardiovascular RiskHDL > or equal to 60 mg/dL LOWHDL < 40 mg/dL HIGH Result Comment: HDL CHOL ATP-III CLASSIFICATION Cardiovascular Risk HDL > or equal to 60 mg/dL LOW HDL < 40 mg/dL HIGH Performed By: #### L IPID, TSH3, CMP ####[facility] [place] [id number] [place] Cholesterol in LDL Calc [Mas s/Vol]Ordered By: Jabari Celeste on 02-07-2025 Cholesterol in LDL [Mass/Vol] 80 mg/dL 0-100 [facility] Comment on above: LDL ATP III CLASSIFI CATIONLDL less than 100 mg/dL OptimalLDL 100-129 mg/dL Near or above optimalLDL 130-159 mg/dL Borderline highLDL 160-189 mg/dL HighLDL greater than 189 mg/dL Very high Cholesterol in VLDL Calc [Ma ss/Vol]Ordered By: Jabari Celeste on 02-07-2025 Cholesterol in VLDL [Mass/Vol] 20 mg/dL [facility] Comprehensive Metabolic Pane ceferino 02-07-2025 Albumin [Mass/Vol] 4.1 g/dL Normal 3.5-5.7 [facility] Comment on above: Performed By: #### L IPID, TSH3, CMP ####[facility] GFR/1.73 sq M.predicted MDRD (S/P/Bld) [Vol rate/Area] mL/min/{1.73_m2} Normal [facility] Comment on above: Performed By: #### L IPID, TSH3, CMP ####[facility] Cotinine [Mass/volume] in Se rum or PlasmaOrdered By: Jabari Celeste on 02-07-2025 Cotinine [Mass/Vol] <1.0 ng/mL . [facility] Comment on above: This test was develo ped and its performance characteristicsdetermined by [facility]. It has not been cleared orapproved by the Food and Drug Administration.Cotinine levels greater than 20.0 are consistent with theuse of tobacco or tobacco cessation products.Performed at: [address] [id number] Director: Angel Garcia MD, Phone: [phone] Creatinine [Mass/volume] in Serum or PlasmaOrdered By: Jabari Celeste on 02-07-2025 Creatinine [Mass/Vol] 0.67 mg/dL Normal 0.60-1.20 [facility] Comment on above: Performed By: #### L IPID, TSH3, CMP ####[facility] Erythrocyte distribution wid th [Ratio] by Automated countOrdered By: Jabari Celeste on 02-07-2025 Erythrocyte distribution width (RBC) [Ratio] 15.7 % High 11.9-15.3 [facility] Comment on above: Performed By: #### C BCNO #### [facility] [address] Erythrocytes [#/volume] in B lood by Automated countOrdered By: Jabari Celeste on 02-07-2025 RBC (Bld) [#/Vol] 5.55 10*6/uL High 3.60-5.00 [facility] Comment on above: Performed By: #### C BCNO #### [facility] [address] [place] [address] [place] Glucose [Mass/volume] in Ser um or PlasmaOrdered By: Jabari Celeste on 02-07-2025 Glucose [Mass/Vol] 82 mg/dL Normal 70-100 [facility] Comment on above: ADA recommended refe rence rangeRandom Glucose Reference Range is dependent on time and content of last meal. Glucose of more than 200 mg/dL in a nonstressed, ambulatory subject supports the diagnosis of Diabetes Mellitus. Result Comment: [place] om Glucose Reference Range is dependent on time and content of last meal. Glucose of more than 200 mg/dL in a nonstressed, ambulatory subject supports the diagnosis of Diabetes Mellitus. ADA recommended reference range Performed By: #### L IPID, TSH3, CMP ####[address] Hematocrit [Volume Fraction] of Blood by Automated countOrdered By: Jabari Celeste on 02-07-2025 Hematocrit (Bld) [Volume fraction] 42.9 % Normal 34.0-46.4 [facility] Comment on above: Performed By: #### C BCNO #### [facility] [address] Hemoglobin A1c/Hemoglobin.to raghav in BloodOrdered By: Jabari Celeste on 02-07-2025 HbA1c (Bld) [Mass fraction] 5.6 % Normal 4.3-5.6 [facility] Comment on above: Increased risk for d iabetes: 5.7 - 6.4diabetes: >6.4glycemic control for adults with diabetes: <7.0 Result Comment: Incr eased risk for diabetes: 5.7 - 6.4 diabetes: >6.4 glycemic control for adults with diabetes: <7.0 Performed By: #### A 1C WTH eA ####[facility] Hemoglobin [Mass/volume] in BloodOrdered By: Jabari Celeste on 02-07-2025 Hemoglobin (Bld) [Mass/Vol] 14.0 g/dL Normal 11.8-15.4 [facility] Comment on above: Performed By: #### C BCNO #### [facility] [address] Hemogram CBC Without Diffon 02-07-2025 Mean Corpuscular HGB Conc 32.8 g/dL Normal 32.0-35.0 [facility] Comment on above: Performed By: #### C BCNO #### [facility] [address] White Blood Count 9.9 [CFU]/mL Normal 3.8-11.6 [facility] Comment on above: Performed By: #### C BCNO #### [address] Leukocytes [#/volume] correc steff for nucleated erythrocytes in Blood by Automated counOrdered By: Jabari Celeste on 02-07-2025 WBC corrected for nucl RBC Auto (Bld) [#/Vol] 9.9 10*3/uL 3.8-11.6 [facility] Lipid Panelon 02-07-2025 LDL Cholesterol,Calculated 80 mg/dL Normal 0-100 [facility] Comment on above: Result Comment: LDL ATP III CLASSIFICATION LDL less than 100 mg/dL Optimal LDL 100-129 mg/dL Near or above optimal LDL 130-159 mg/dL Borderline high LDL 160-189 mg/dL High LDL greater than 189 mg/dL Very high Performed By: #### L IPID, TSH3, CMP ####[address] Triglyceride w/Reflex 100 mg/dL Normal 0-149 [facility] Comment on above: Result Comment: TRIG ATP III CLASSIFICATION TRIG less than 150 mg/dL Normal TRIG 150-199 mg/dL Borderline high TRIG 200-500 mg/dL High TRIG greater than 500 mg/dL Very high Standard traceable to the Center for Disease Conrtrol and Prevention (CDC) test method. Performed By: #### L IPID, TSH3, CMP ####[facility] [place] [address] [place] VLDL CHOLESTEROL 20 mg/dL Normal [facility] Comment on above: Performed By: #### L IPID, TSH3, CMP ####[facility] [address] MCH [Entitic mass] by Automa steff countOrdered By: Jabari Celeste on 02-07-2025 MCH (RBC) [Entitic mass] 25.3 pg Normal 24.7-34.3 [facility] Comment on above: Performed By: #### C BCNO #### [facility] [address] MCHC Auto (RBC) [Mass/Vol]Or dered By: Jabari Celeste on 02-07-2025 MCHC (RBC) [Mass/Vol] 32.8 g/dL 32.0-35.0 [facility] MCV [Entitic volume] by Auto mated countOrdered By: Jabari Celeste on 02-07-2025 MCV (RBC) [Entitic vol] 77.2 fL Low 80-100 [facility] Comment on above: Performed By: #### C BCNO #### [facility] [address] Nicotine [Mass/volume] in Se rum or PlasmaOrdered By: Jabari Celeste on 02-07-2025 Nicotine [Mass/Vol] <1.0 ng/mL . [facility] Comment on above: This test was develo ped and its performance characteristicsdetermined by [facility]. It has not been cleared orapproved by the Food and Drug Administration.Nicotine levels greater than 2.0 are consistent with theuse of tobacco or tobacco cessation products. Nicotine/Cotinine Bloodon Cotinine, Blood <1.0 Normal . [facility] Comment on above: Result Comment: This test was developed and its performance characteristics determined by [facility]. It has not been cleared or approved by the Food and Drug Administration. Cotinine levels greater than 20.0 are consistent with the use of tobacco or tobacco cessation products. Performed at: [address] [id number] Prepress Stripper: Angel Garcia MD, Phone: [phone] PERFORMED BY: [place] [address] PATHOLOGIST INTERN ARCHITECT BROWN LAUGHLIN M.D. Performed By: #### N ICOTINE ####[facility] , Nicotine, Blood <1.0 Normal . [facility] Comment on above: Result Comment: [...] 02-07-2025 Estimated GFR (CKD-EPI) > 60.0 mL/Min [facility] Creatinine Clearance (Chem N/A [facility] Platelet mean volume [Entiti c volume] in Blood by Automated countOrdered By: Jabari Celeste on 02-07-2025 Platelet mean volume (Bld) [Entitic vol] 7.7 fL Normal 6.3-10.7 [facility] Comment on above: Result Comment: PERF ORMED BY: [place] [address] PATHOLOGIST INTERN ARCHITECT BROWN LAUGHLIN M.D. Performed By: #### C BCNO #### [facility] [address] [place] [address] [place] Platelets [#/volume] in Bloo d by Automated countOrdered By: Jabari Celeste on 02-07-2025 Platelets (Bld) [#/Vol] 201 10*3/uL Normal 150-450 [facility] Comment on above: Performed By: #### C BCNO #### [facility] [address] [place] [address] [place] Potassium [Moles/volume] in Serum or PlasmaOrdered By: Jabari Celeste on 02-07-2025 Potassium [Moles/Vol] 4.1 mmol/L Normal 3.5-5.1 [facility] Comment on above: Performed By: #### L IPID, TSH3, CMP ####[address] Protein [Mass/volume] in Ser um or PlasmaOrdered By: Jabari Celeste on 02-07-2025 Protein [Mass/Vol] 6.0 g/dL Low 6.4-8.9 [facility] Comment on above: Performed By: #### L IPID, TSH3, CMP ####[address] Serum globulin measurement b y calculation (mass/volume)Ordered By: Jabari Celeste on 02-07-2025 Globulin (S) [Mass/Vol] 1.9 g/dL Normal [facility] Comment on above: Performed By: #### L IPID, TSH3, CMP ####[address] Serum or plasma albumin/glob ulin mass ratioOrdered By: Jabari Celeste on 02-07-2025 Albumin/Globulin [Mass ratio] 2.2 {ratio} Normal [facility] Comment on above: Performed By: #### L IPID, TSH3, CMP ####[address] Serum or plasma anion gap de terminationOrdered By: Jabari Celeste on 02-07-2025 Anion gap [Moles/Vol] 10.7 mmol/L Normal 6.0-15.0 [facility] Comment on above: Performed By: #### L IPID, TSH3, CMP ####[address] Serum or plasma total choles terol/high density lipoprotein (HDL) cholesterol mass ratOrdered By: Jabari Celeste on 02-07-2025 Cholesterol.total/Chol esterol in HDL [Mass ratio] 3.0 {ratio} Normal <5.0 [facility] Comment on above: Performed By: #### L IPID, TSH3, CMP ####[address] Sodium [Moles/volume] in Ser um or PlasmaOrdered By: Jabari Celeste on 02-07-2025 Sodium [Moles/Vol] 144 mmol/L Normal 136-145 [facility] Comment on above: Performed By: #### L IPID, TSH3, CMP ####[facility] Thyrotropin [Units/volume] i n Serum or PlasmaOrdered By: Jabari Celeste on 02-07-2025 TSH Qn 1.83 m[IU]/L Normal 0.45-5.33 [facility] Comment on above: Result Comment: PERF ORMED BY: [place] [address] PATHOLOGIST INTERN ARCHITECT BROWN LAUGHLIN M.D. Performed By: #### B MP #### [address] Triglyceride [Mass/volume] i n Serum or PlasmaOrdered By: Jabari Celeste on 02-07-2025 Triglyceride [Mass/Vol] 100 mg/dL 0-149 [facility] Comment on above: TRIG ATP III CLASSIF ICATIONTRIG less than 150 mg/dL NormalTRIG 150-199 mg/dL Borderline highTRIG 200-500 mg/dL High TRIG greater than 500 mg/dL Very highStandard traceable to the Center for Disease Conrtrol and Prevention (CDC) test method. Urea nitrogen [Mass/volume] in Serum or PlasmaOrdered By: Jabari Celeste on 02-07-2025 Urea nitrogen [Mass/Vol] 10 mg/dL Normal 7-25 [facility] Comment on above: Performed By: #### L IPID, TSH3, CMP ####[facility] [id number] [facility] BNP ser/plasOrdered By: Alexis Meeks on 01-15-2025 Natriuretic peptide B (Bld) [Mass/Vol] 17.0 pg/mL Normal 5-100 [facility] Comment on above: Result Comment: PERF ORMED BY: [facility] [address] [place] [address] PATHOLOGIST INTERN ARCHITECT BROWN S TRUMAN M.D. Performed By: #### B MP #### [address] Basic Metabolic Panelon Creatinine Clr Calc Pharmacy 87.90 Normal [facility] Comment on above: Result Comment: PERF ORMED BY: [place] [address] PATHOLOGIST INTERN ARCHITECT BROWN LAUGHLIN M.D. Performed By: #### B MP #### [address] GFR/1.73 sq M.predicted MDRD (S/P/Bld) [Vol rate/Area] mL/min/{1.73_m2} Normal [facility] Comment on above: Performed By: #### B MP #### [address] Basophils Auto (Bld) [#/Vol] Ordered By: Jaime Meeks on 01-15-2025 Basophils (Bld) [#/Vol] Automated basophil count 0.0-0.2 [facility] Basophils [#/volume] in Bloo d by Automated countOrdered By: Jaime Meeks on 01-15-2025 Basophils (Bld) [#/Vol] 0.1 10*3/uL Normal 0.0-0.2 [facility] Comment on above: Result Comment: PERF ORMED BY: [place] [address] PATHOLOGIST INTERN ARCHITECT BROWN LAUGHLIN M.D. Performed By: #### B MP #### [address] Basophils/100 WBC Auto (Bld) Ordered By: Jaime Meeks on 01-15-2025 Basophils/100 WBC (Bld) Automated basophil % . [facility] Basophils/100 leukocytes in Blood by Automated countOrdered By: Jaime Meeks on 01-15-2025 Basophils/100 WBC (Bld) 1.1 % Normal . [facility] Comment on above: Performed By: #### B MP #### [address] [place] [address] [place] Calcium [Mass/volume] in Ser um or PlasmaOrdered By: Jaime Meeks on 01-15-2025 Calcium [Mass/Vol] Calcium [Mass/volume ] in Serum or Plasma 8.6-10.3 [facility] Calcium [Mass/Vol] 9.0 mg/dL Normal 8.6-10.3 [facility] Comment on above: Performed By: #### B MP #### [address] Carbon dioxide, total [Moles /volume] in Serum or PlasmaOrdered By: Jaime Meeks on 01-15-2025 CO2 [Moles/Vol] Carbon dioxide, tota l [Moles/volume] in Serum or Plasma 21.0-31.0 [facility] CO2 [Moles/Vol] 26.6 mmol/L Normal 21.0-31.0 [facility] Comment on above: Performed By: #### B MP #### [address] Chloride [Moles/volume] in S luz maria or PlasmaOrdered By: Jaime Meeks on 01-15-2025 Chloride [Moles/Vol] Chloride [Moles/vol ume] in Serum or Plasma 98-107 [facility] Chloride [Moles/Vol] 107 mmol/L Normal 98-107 [facility] Comment on above: Performed By: #### B MP #### [address] Complete Blood Count Auto Di ffon 01-15-2025 Mean Corpuscular HGB Conc 32.9 g/dL Normal 32.0-35.0 [facility] Comment on above: Performed By: #### B MP #### [address] Monocytes/100 WBC (Bld) 17.33 % Normal 0.00-20.00 [facility] Comment on above: Performed By: #### B MP #### [address] NRBC% 0.0 /100{WBC} Normal 0-0.5 [facility] Comment on above: Performed By: #### B MP #### [address] Creatine kinase [Enzymatic a ctivity/volume] in Serum or PlasmaOrdered By: Jaime Meeks on 01-15-2025 CK [Catalytic activity/Vol] Creatine kinase [Enzymatic activity/volume] in Serum or Plasma Low 30-223 [facility] CK [Catalytic activity/Vol] 22 U/L Low 30-223 [facility] Comment on above: Performed By: #### B MP #### [address] Creatinine [Mass/volume] in Serum or PlasmaOrdered By: Jaime Meeks on 01-15-2025 Creatinine [Mass/Vol] Creatinine [Mass/v olume] in Serum or Plasma 0.60-1.20 [facility] Creatinine [Mass/Vol] 0.70 mg/dL Normal 0.60-1.20 [facility] Comment on above: Performed By: #### B MP #### [address] D-Dimer High Sensitivityon 0 01-15-2025 D-Dimer High Sensitivity <200 Normal 0-243 [facility] Comment on above: Result Comment: [...] coagulation studies. Please contact the laboratory at [phone] for redraw instructions. PERFORMED BY: [place] [address] PATHOLOGIST INTERN ARCHITECT BROWN LAUGHLIN M.D. Performed By: #### B MP #### [address] ECG 12 lead ECGon 01-15-2025 ECG 12 lead ECG [facility] [place] [address] [place] [address] Electrocardiograph Report Signed Patient: Flash Irving MR#: [id number] 6 : 1975 Acct:[id number] Age/Sex: 49 / F ADM Date: 01/15/25 Loc: ER Room: Type: [facility] ER Attending Dr: Ordering Provider: Jaime [...] before 04-Oct-2024) Confirmed by Jaime Meeks DO ([id number]) on 01/16/2025 1:59:37 AM Referred By: Electronically Signed By: Jaime Meeks DO Transcribed By: MUS Signed By Jaime Meeks DO 0159 Normal [facility] Eosinophils Auto (Bld) [#/Vo l]Ordered By: Jaime Meeks on 01-15-2025 Eosinophils (Bld) [#/Vol] Automated eosinophil count 0.0-0.45 [facility] Eosinophils [#/volume] in Bl ood by Automated countOrdered By: Jaime Meeks on 01-15-2025 Eosinophils (Bld) [#/Vol] 0.1 10*3/uL Normal 0.0-0.45 [facility] Comment on above: Performed By: #### B MP #### [place] [address] [place] Eosinophils/100 WBC Auto (Bl d)Ordered By: Jaime Meeks on 01-15-2025 Eosinophils/100 WBC (Bld) Automated eosinophil % . [facility] Eosinophils/100 leukocytes i n Blood by Automated countOrdered By: Jaime Meeks on 01-15-2025 Eosinophils/100 WBC (Bld) 1.2 % Normal . [facility] Comment on above: Performed By: #### B MP #### [address] Erythrocyte distribution wid th Auto (RBC) [Ratio]Ordered By: Jaime Meeks on 01-15-2025 Erythrocyte distribution width (RBC) [Ratio] Erythrocyte distribution width [Ratio] by Automated count 11.9-15.3 [facility] Erythrocyte distribution wid th [Ratio] by Automated countOrdered By: Jaime Meeks on 01-15-2025 Erythrocyte distribution width (RBC) [Ratio] 14.9 % Normal 11.9-15.3 [facility] Comment on above: Performed By: #### B MP #### [address] Erythrocytes [#/volume] in B lood by Automated countOrdered By: Jaime Meeks on 01-15-2025 RBC (Bld) [#/Vol] 5.62 10*6/uL High 3.60-5.00 [facility] Comment on above: Performed By: #### B MP #### [address] Fibrin D-dimer [Presence] in Platelet poor plasma by Latex agglutinationOrdered By: Jaime Meeks on 01-15-2025 Fibrin D-dimer LA Ql (PPP) Fibrin D-dimer [Presence] in Platelet poor plasma by Latex agglutination 0-243 [facility] Comment on above: The reference range [...] coagulation studies. Please contact the laboratory at [phone] for redraw instructions. Fibrin D-dimer LA Ql (PPP) < 200 ng/mL 0-243 [facility] Comment on above: The reference range [...] coagulation studies. Please contact the laboratory at [phone] for redraw instructions. Glucose [Mass/volume] in Ser um or PlasmaOrdered By: Jaime Meeks on 01-15-2025 Glucose [Mass/Vol] Glucose [Mass/volume ] in Serum or Plasma 70-100 [facility] Comment on above: ADA recommended refe rence rangeRandom Glucose Reference Range is dependent on time and content of last meal. Glucose of more than 200 mg/dL in a nonstressed, ambulatory subject supports the diagnosis of Diabetes Mellitus. Glucose [Mass/Vol] 86 mg/dL Normal 70-100 [facility] Comment on above: ADA recommended refe rence rangeRandom Glucose Reference Range is dependent on time and content of last meal. Glucose of more than 200 mg/dL in a nonstressed, ambulatory subject supports the diagnosis of Diabetes Mellitus. Result Comment: [place] om Glucose Reference Range is dependent on time and content of last meal. Glucose of more than 200 mg/dL in a nonstressed, ambulatory subject supports the diagnosis of Diabetes Mellitus. ADA recommended reference range Performed By: #### B MP #### [address] Hematocrit Auto (Bld) [Volum e fraction]Ordered By: Jaime Meeks on 01-15-2025 Hematocrit (Bld) [Volume fraction] Hematocrit [Volume Fraction] of Blood by Automated count 34.0-46.4 [facility] Hematocrit [Volume Fraction] of Blood by Automated countOrdered By: Jaime Meeks on 01-15-2025 Hematocrit (Bld) [Volume fraction] 43.1 % Normal 34.0-46.4 [facility] Comment on above: Performed By: #### B MP #### [address] Hemoglobin [Mass/volume] in BloodOrdered By: Jaime Meeks on 01-15-2025 Hemoglobin (Bld) [Mass/Vol] Hemoglobin [Mass/volume] in Blood 11.8-15.4 [facility] Hemoglobin (Bld) [Mass/Vol] 14.2 g/dL Normal 11.8-15.4 [facility] Comment on above: Performed By: #### B MP #### [address] INR in Platelet poor plasma by Coagulation assayOrdered By: Jaime Meeks on 01-15-2025 INR Coag (PPP) [Relative time] INR in Platelet poor plasma by Coagulation assay [facility] Comment on above: INR Therapeutic Rang [...] Coag (PPP) [Relative time] 1.0 {INR} Normal [facility] Comment on above: INR Therapeutic Rang [...] 4.5 Performed By: #### B MP #### [address] Leukocytes [#/volume] correc steff for nucleated erythrocytes in Blood by Automated counOrdered By: Jaime Meeks on 01-15-2025 WBC corrected for nucl RBC Auto (Bld) [#/Vol] Leukocytes [#/volume] corrected for nucleated erythrocytes in Blood by Automated coun 3.8-11.6 [facility] WBC corrected for nucl RBC Auto (Bld) [#/Vol] 10.8 10*3/uL 3.8-11.6 [facility] Leukocytes [#/volume] in Blo od by Automated countOrdered By: Jaime Meeks on 01-15-2025 WBC (Bld) [#/Vol] 10.8 10*3/uL Normal 3.8-11.6 [facility] Comment on above: Performed By: #### B MP #### [address] Lymphocytes Auto (Bld) [#/Vo l]Ordered By: Jaime Meeks on 01-15-2025 Lymphocytes (Bld) [#/Vol] Lymphocytes [#/volume] in Blood by Automated count 1.00-4.8 [facility] Lymphocytes [#/volume] in Bl ood by Automated countOrdered By: Jaime Meeks on 01-15-2025 Lymphocytes (Bld) [#/Vol] 2.1 10*3/uL Normal 1.00-4.8 [facility] Comment on above: Performed By: #### B MP #### [facility] [address] Lymphocytes/100 WBC Auto (Bl d)Ordered By: Jaime Meeks on 01-15-2025 Lymphocytes/100 WBC (Bld) Lymphocytes/100 leukocytes in Blood by Automated count . [facility] Lymphocytes/100 leukocytes i n Blood by Automated countOrdered By: Jaime Meeks on 01-15-2025 Lymphocytes/100 WBC (Bld) 19.7 % Normal . [facility] Comment on above: Performed By: #### B MP #### [facility] [address] MCH Auto (RBC) [Entitic mass ]Ordered By: Jaime Meeks on 01-15-2025 MCH (RBC) [Entitic mass] MCH [Entitic mass] by Automated count 24.7-34.3 [facility] MCH [Entitic mass] by Automa steff countOrdered By: Jaime Meeks on 01-15-2025 MCH (RBC) [Entitic mass] 25.3 pg Normal 24.7-34.3 [facility] Comment on above: Performed By: #### B MP #### [facility] [address] [place] [address] MCHC Auto (RBC) [Mass/Vol]Or dered By: Jaime Meeks on 01-15-2025 MCHC (RBC) [Mass/Vol] MCHC [Mass/volume] by Automated count 32.0-35.0 [facility] MCHC (RBC) [Mass/Vol] 32.9 g/dL 32.0-35.0 [facility] MCV Auto (RBC) [Entitic vol] Ordered By: Jaime Meeks on 01-15-2025 MCV (RBC) [Entitic vol] MCV [Entitic volume] by Automated count Low 80-100 [facility] MCV [Entitic volume] by Auto mated countOrdered By: Jaime Meeks on 01-15-2025 MCV (RBC) [Entitic vol] 76.7 fL Low 80-100 [facility] Comment on above: Performed By: #### B MP #### [address] Monocyte distribution width [Entitic volume] in Blood by AutomatedOrdered By: Jaime Meeks on 01-15-2025 Monocyte distribution width Auto (Bld) [Entitic vol] Monocyte distribution width [Entitic volume] in Blood by Automated 0.00-20.00 [facility] Monocyte distribution width Auto (Bld) [Entitic vol] 17.33 % 0.00-20.00 [facility] Monocytes Auto (Bld) [#/Vol] Ordered By: Jaime Meeks on 01-15-2025 Monocytes (Bld) [#/Vol] Automated blood monocyte count 0.0-0.8 [facility] Monocytes [#/volume] in Bloo d by Automated countOrdered By: Jaime Meeks on 01-15-2025 Monocytes (Bld) [#/Vol] 0.7 10*3/uL Normal 0.0-0.8 [facility] Comment on above: Performed By: #### B MP #### [address] Monocytes/100 WBC Auto (Bld) Ordered By: Jaime Meeks on 01-15-2025 Monocytes/100 WBC (Bld) Automated monocyte % . [facility] Monocytes/100 leukocytes in Blood by Automated countOrdered By: Jaime Meeks on 01-15-2025 Monocytes/100 WBC (Bld) 6.6 % Normal . [facility] Comment on above: Performed By: #### B MP #### [address] Natriuretic peptide B [Mass/ Vol]Ordered By: Jaime Meeks on 01-15-2025 Natriuretic peptide B (Bld) [Mass/Vol] BNP ser/plas 5-100 [facility] Neutrophils Auto (Bld) [#/Vo l]Ordered By: Jaime Meeks on 01-15-2025 Neutrophils (Bld) [#/Vol] Neutrophils [#/volume] in Blood by Automated count 1.8-7.7 [facility] Neutrophils [#/volume] in Bl ood by Automated countOrdered By: Jaime Meeks on 01-15-2025 Neutrophils (Bld) [#/Vol] 7.7 10*3/uL Normal 1.8-7.7 [facility] Comment on above: Performed By: #### B MP #### [address] Neutrophils/100 WBC Auto (Bl d)Ordered By: Jaime Meeks on 01-15-2025 Neutrophils/100 WBC (Bld) Automated neutrophil % . [facility] Neutrophils/100 leukocytes i n Blood by Automated countOrdered By: Jaime Meeks on 01-15-2025 Neutrophils/100 WBC (Bld) 71.4 % Normal . [facility] Comment on above: Performed By: #### B MP #### [address] No Panel InformationOrdered By: Jaime Meeks on 01-15-2025 Estimated GFR (CKD-EPI) > 60.0 mL/Min [facility] Creatinine Clearance (Chem 87.90 [facility] Nucleated erythrocytes [Pres ence] in Blood by Automated countOrdered By: Jaime Meeks on 01-15-2025 Nucleated RBC Auto Ql (Bld) Nucleated erythrocytes [Presence] in Blood by Automated count 0-0.5 [facility] Nucleated RBC Auto Ql (Bld) 0.0 /100{WBC} 0-0.5 [facility] Platelet mean volume Auto (B ld) [Entitic vol]Ordered By: Jaime Meeks on 01-15-2025 Platelet mean volume (Bld) [Entitic vol] Platelet mean volume [Entitic volume] in Blood by Automated count 6.3-10.7 [facility] Platelet mean volume [Entiti c volume] in Blood by Automated countOrdered By: Jaime Meeks on 01-15-2025 Platelet mean volume (Bld) [Entitic vol] 7.3 fL Normal 6.3-10.7 [facility] Comment on above: Performed By: #### B MP #### [address] Platelets Auto (Bld) [#/Vol] Ordered By: Jaime Meeks on 01-15-2025 Platelets (Bld) [#/Vol] Platelets [#/volume] in Blood by Automated count 150-450 [facility] Platelets [#/volume] in Bloo d by Automated countOrdered By: Jaime Meeks on 01-15-2025 Platelets (Bld) [#/Vol] 197 10*3/uL Normal 150-450 [facility] Comment on above: Performed By: #### B MP #### [facility] [address] Potassium [Moles/volume] in Serum or PlasmaOrdered By: Jaime Tylerarthy on 01-15-2025 Potassium [Moles/Vol] Potassium [Moles/v olume] in Serum or Plasma 3.5-5.1 [facility] Potassium [Moles/Vol] 3.5 mmol/L Normal 3.5-5.1 [facility] Comment on above: Performed By: #### B MP #### [facility] [address] Prothrombin time (PT)Ordered By: Jaime Sotoy on 01-15-2025 PT Coag (PPP) [Time] Prothrombin time (PT) 9.0- 12.9 [facility] Comment on above: A hematocrit value g reater than 55% may lead to inaccurate results in coagulation testing. Patients having hematocrit values >55% require a special collection tube for coagulation studies. Please contact the laboratory at [phone] for redraw instructions. PT Coag (PPP) [Time] 11.7 s Normal 9.0-12.9 [facility] Comment on above: A hematocrit value g reater than 55% may lead to inaccurate results in coagulation testing. Patients having hematocrit values >55% require a special collection tube for coagulation studies. Please contact the laboratory at [phone] for redraw instructions. Result Comment: A he matocrit value greater than 55% may lead to inaccurate results in coagulation testing. Patients having hematocrit values >55% require a special collection tube for coagulation studies. Please contact the laboratory at [phone] for redraw instructions. Performed By: #### B MP #### [address] RBC Auto (Bld) [#/Vol]Ordere d By: Jaime Meeks on 01-15-2025 RBC (Bld) [#/Vol] Erythrocytes [#/volu me] in Blood by Automated count High 3.60-5.00 [facility] Serum or plasma anion gap de terminationOrdered By: Jaime Meeks on 01-15-2025 Anion gap [Moles/Vol] Serum or plasma an ion gap determination 6.0-15.0 [facility] Anion gap [Moles/Vol] 11.9 mmol/L Normal 6.0-15.0 [facility] Comment on above: Performed By: #### B MP #### [address] Sodium [Moles/volume] in Ser um or PlasmaOrdered By: Jaime Meeks on 01-15-2025 Sodium [Moles/Vol] Sodium [Moles/volume ] in Serum or Plasma 136-145 [facility] Sodium [Moles/Vol] 142 mmol/L Normal 136-145 [facility] Comment on above: Performed By: #### B MP #### [address] Troponin I High Sensitivityo n 01-15-2025 Troponin I High Sensitivity 4 Normal 0-15 [facility] Comment on above: Result Comment: The Troponin units of report have been changed to meet the Chest Pain Accreditation requirement, element EC5.M1l2. Troponin units are changed from pg/ml to ng/L. Also, the decimal is removed and results are in whole numbers. PERFORMED BY: [place] [address] PATHOLOGIST INTERN ARCHITECT BROWN LAUGHLIN M.D. Performed By: #### B MP #### [address] Troponin I.cardiac [Mass/vol ume] in Serum or Plasma by Detection limit <= 0.01 ng/Ordered By: Jaime Meeks on 01-15-2025 Troponin I.cardiac DL <= 0.01 ng/mL [Mass/Vol] Troponin I.cardiac [Mass/volume] in Serum or Plasma by Detection limit <= 0.01 ng/ 0 [facility] Comment on above: The Troponin units [...] DL <= 0.01 ng/mL [Mass/Vol] 4 ng/L [facility] Comment on above: The Troponin units [...] nitrogen [Mass/volume] in Serum or Plasma 03-09 [facility] Urea nitrogen [Mass/Vol] 11 mg/dL Normal 03-09 [facility] Comment on above: Performed By: #### B MP #### [address] WBC Auto (Bld) [#/Vol]Ordere d By: Jaime Meeks on 01-15-2025 WBC (Bld) [#/Vol] Leukocytes [#/volume ] in Blood by Automated count 3.8-11.6 [facility] XR chest 1V portableon 01-15 XR chest 1V portable [facility] [place] [address] XRay Report Signed Patient: Flash Irving MR#: [id number] 6 : 1975 Acct:[id number] Age/Sex: 49 / F ADM Date: 01/15/25 Loc: ER Room: Type: [facility] ER Attending Dr: Copies to: Jaime [...] Warren M.D. 01/15/2025 10:42 AM Dictation Location: [place] [address] Transcribed By: AMBER 01/15/25 1042 Dictated By: Jose Warren MD 01/15/25 1040 Signed By: 01/15/25 1042 Normal [facility] Basophils Auto (Bld) [#/Vol] Ordered By: Ernst Boone on 01-01-2025 Basophils (Bld) [#/Vol] Automated basophil count 0.0-0.2 [facility] Basophils [#/volume] in Bloo d by Automated countOrdered By: Ernst Boone on 01-01-2025 Basophils (Bld) [#/Vol] 0.1 10*3/uL Normal 0.0-0.2 [facility] Comment on above: Order Comment: DEBRA CAMERON Result Comment: PERF ORMED BY: [place] [address] PATHOLOGIST INTERN ARCHITECT NORAH LEVI M.D. Performed By: #### T SH3, LIPID #### [address] Basophils/100 WBC Auto (Bld) Ordered By: Ernst Boone on 01-01-2025 Basophils/100 WBC (Bld) Automated basophil % . [facility] Basophils/100 leukocytes in Blood by Automated countOrdered By: Ernst Boone on 01-01-2025 Basophils/100 WBC (Bld) 0.8 % Normal . [facility] Comment on above: Order Comment: [email or web address] [email or web address] Performed By: #### T SH3, LIPID #### [address] Complete Blood Count Auto Di ffon 01-01-2025 Mean Corpuscular HGB Conc 32.7 g/dL Normal 32.0-35.0 [facility] Comment on above: Order Comment: [email or web address] [email or web address] Performed By: #### T SH3, LIPID #### [address] NRBC% 0.1 /100{WBC} Normal 0-0.5 [facility] Comment on above: Order Comment: [email or web address] [email or web address] Performed By: #### T SH3, LIPID #### [address] Eosinophils Auto (Bld) [#/Vo l]Ordered By: Ernst Boone on 01-01-2025 Eosinophils (Bld) [#/Vol] Automated eosinophil count 0.0-0.45 [facility] Eosinophils [#/volume] in Bl ood by Automated countOrdered By: Ernst Boone on 01-01-2025 Eosinophils (Bld) [#/Vol] 0.2 10*3/uL Normal 0.0-0.45 [facility] Comment on above: Order Comment: [email or web address] [email or web address] Performed By: #### T SH3, LIPID #### [address] Eosinophils/100 WBC Auto (Bl d)Ordered By: Ernst Boone on 01-01-2025 Eosinophils/100 WBC (Bld) Automated eosinophil % . [facility] Eosinophils/100 leukocytes i n Blood by Automated countOrdered By: Ernst Boone on 01-01-2025 Eosinophils/100 WBC (Bld) 1.5 % Normal . [facility] Comment on above: Order Comment: [email or web address] [email or web address] Performed By: #### T SH3, LIPID #### [facility] [address] [place] [address] Erythrocyte distribution wid th Auto (RBC) [Ratio]Ordered By: Ernst Boone on 01-01-2025 Erythrocyte distribution width (RBC) [Ratio] Erythrocyte distribution width [Ratio] by Automated count 11.9-15.3 [facility] Erythrocyte distribution wid th [Ratio] by Automated countOrdered By: Ernst Rhodess on 01-01-2025 Erythrocyte distribution width (RBC) [Ratio] 14.4 % Normal 11.9-15.3 [facility] Comment on above: Order Comment: DEBRA MELISSAW Performed By: #### T SH3, LIPID #### [facility] [address] [place] [address] Erythrocytes [#/volume] in B lood by Automated countOrdered By: Ernst Boone on 01-01-2025 RBC (Bld) [#/Vol] 5.67 10*6/uL High 3.60-5.00 [facility] Comment on above: Order Comment: DEBRA CAMERON Performed By: #### T SH3, LIPID #### [facility] [address] [place] [address] Hematocrit Auto (Bld) [Volum e fraction]Ordered By: Ernst Boone on 01-01-2025 Hematocrit (Bld) [Volume fraction] Hematocrit [Volume Fraction] of Blood by Automated count 34.0-46.4 [facility] Hematocrit [Volume Fraction] of Blood by Automated countOrdered By: Ernst Boone on 01-01-2025 Hematocrit (Bld) [Volume fraction] 44.6 % Normal 34.0-46.4 [facility] Comment on above: Order Comment: DEBRA CAMERON Performed By: #### T SH3, LIPID #### [facility] [address] [place] [address] Hemoglobin [Mass/volume] in BloodOrdered By: Ernst Boone on 01-01-2025 Hemoglobin (Bld) [Mass/Vol] Hemoglobin [Mass/volume] in Blood 11.8-15.4 [facility] Hemoglobin (Bld) [Mass/Vol] 14.6 g/dL Normal 11.8-15.4 [facility] Comment on above: Order Comment: [email or web address] [email or web address] Performed By: #### T SH3, LIPID #### [facility] [address] [place] [address] [place] Leukocytes [#/volume] correc steff for nucleated erythrocytes in Blood by Automated counOrdered By: Ernst Boone on 01-01-2025 WBC corrected for nucl RBC Auto (Bld) [#/Vol] Leukocytes [#/volume] corrected for nucleated erythrocytes in Blood by Automated coun 3.8-11.6 [facility] WBC corrected for nucl RBC Auto (Bld) [#/Vol] 10.7 10*3/uL 3.8-11.6 [facility] Leukocytes [#/volume] in Blo od by Automated countOrdered By: Ernst Boone on 01-01-2025 WBC (Bld) [#/Vol] 10.7 10*3/uL Normal 3.8-11.6 [facility] Comment on above: Order Comment: DEBRA OLIVASJKW Performed By: #### T SH3, LIPID #### [facility] [address] Lymphocytes Auto (Bld) [#/Vo l]Ordered By: Ernst Boone on 01-01-2025 Lymphocytes (Bld) [#/Vol] Lymphocytes [#/volume] in Blood by Automated count 1.00-4.8 [facility] Lymphocytes [#/volume] in Bl ood by Automated countOrdered By: Ernst Boone on 01-01-2025 Lymphocytes (Bld) [#/Vol] 2.3 10*3/uL Normal 1.00-4.8 [facility] Comment on above: Order Comment: DEBRA [email or web address] Performed By: #### T SH3, LIPID #### [facility] [address] [place] [address] [place] Lymphocytes/100 WBC Auto (Bl d)Ordered By: Ernst Boone on 01-01-2025 Lymphocytes/100 WBC (Bld) Lymphocytes/100 leukocytes in Blood by Automated count . [facility] Lymphocytes/100 leukocytes i n Blood by Automated countOrdered By: Ernst Boone on 01-01-2025 Lymphocytes/100 WBC (Bld) 21.7 % Normal . [facility] Comment on above: Order Comment: DEBRA MELISSAW Performed By: #### T SH3, LIPID #### [facility] [address] MCH Auto (RBC) [Entitic mass ]Ordered By: Ernst Boone on 01-01-2025 MCH (RBC) [Entitic mass] MCH [Entitic mass] by Automated count 24.7-34.3 [facility] MCH [Entitic mass] by Automa steff countOrdered By: Ernst Boone on 01-01-2025 MCH (RBC) [Entitic mass] 25.7 pg Normal 24.7-34.3 [facility] Comment on above: Order Comment: DEBRA MELISSAW Performed By: #### T SH3, LIPID #### [facility] [address] MCHC Auto (RBC) [Mass/Vol]Or dered By: Ernst Boone on 01-01-2025 MCHC (RBC) [Mass/Vol] MCHC [Mass/volume] by Automated count 32.0-35.0 [facility] MCHC (RBC) [Mass/Vol] 32.7 g/dL 32.0-35.0 [facility] MCV Auto (RBC) [Entitic vol] Ordered By: Ernst Boone on 01-01-2025 MCV (RBC) [Entitic vol] MCV [Entitic volume] by Automated count Low 80-100 [facility] MCV [Entitic volume] by Auto mated countOrdered By: Ernst Boone on 01-01-2025 MCV (RBC) [Entitic vol] 78.6 fL Low 80-100 [facility] Comment on above: Order Comment: DEBRA MELISSAW Performed By: #### T SH3, LIPID #### [facility] [address] Monocytes Auto (Bld) [#/Vol] Ordered By: Ernst Boone on 01-01-2025 Monocytes (Bld) [#/Vol] Automated blood monocyte count 0.0-0.8 [facility] Monocytes [#/volume] in Bloo d by Automated countOrdered By: Ernst Boone on 01-01-2025 Monocytes (Bld) [#/Vol] 0.7 10*3/uL Normal 0.0-0.8 [facility] Comment on above: Order Comment: DEBRA MELISSAW Performed By: #### T SH3, LIPID #### [address] Monocytes/100 WBC Auto (Bld) Ordered By: Ernst Boone on 01-01-2025 Monocytes/100 WBC (Bld) Automated monocyte % . [facility] Monocytes/100 leukocytes in Blood by Automated countOrdered By: Ernst Boone on 01-01-2025 Monocytes/100 WBC (Bld) 6.5 % Normal . [facility] Comment on above: Order Comment: DEBRA MELISSAW Performed By: #### T SH3, LIPID #### [address] NT-proBNPon 01-01-2025 Natriuretic peptide B (Bld) [Mass/Vol] 44 pg/mL Normal 0-249 [facility] Comment on above: Order Comment: [...] Age independent 300 pg/mL Performed at: - [facility] [id number] Prepress Stripper: Maxime Moss PhD, Phone: [phone] PERFORMED BY: [place] [address] PATHOLOGIST INTERN ARCHITECT NORAH LEVI M.D. Performed By: #### T SH3, LIPID #### [address] Natriuretic peptide.B prohor jose d N-Terminal [Mass/volume] in Serum or PlasmaOrdered By: Ernst Boone on 01-01-2025 Natriuretic peptide.B prohormone N-Terminal [Mass/Vol] Natriuretic peptide.B prohormone N-Terminal [Mass/volume] in Serum or Plasma 0-249 [facility] Comment on above: The following cut-po ints have been suggested for theuse of proBNP for the diagnostic evaluation of heartfailure (HF) in patients with acute dyspnea:Modality Age Optimal Cut (years) Point Diag nosis (rule in HF) <50 450 pg/mL 50 - 75 900 pg/mL >75 1800 pg/mLExclusion (rule out HF) Age independent 300 pg/mLPerformed at: [facility] [place], [place] [id number] Director: Maxime Moss PhD, Phone: [phone] Natriuretic peptide.B prohormone N-Terminal [Mass/Vol] 44 pg/mL 0-249 [facility] Comment on above: The following cut-po ints have been suggested for theuse of proBNP for the diagnostic evaluation of heartfailure (HF) in patients with acute dyspnea:Modality Age Optimal Cut (years) Point Diag nosis (rule in HF) <50 450 pg/mL 50 - 75 900 pg/mL >75 1800 pg/mLExclusion (rule out HF) Age independent 300 pg/mLPerformed at: [facility] [place], [place] [id number] Director: Maxime Moss PhD, Phone: [phone] Neutrophils Auto (Bld) [#/Vo l]Ordered By: Ernst Boone on 01-01-2025 Neutrophils (Bld) [#/Vol] Neutrophils [#/volume] in Blood by Automated count 1.8-7.7 [facility] Neutrophils [#/volume] in Bl ood by Automated countOrdered By: Ernst Boone on 01-01-2025 Neutrophils (Bld) [#/Vol] 7.5 10*3/uL Normal 1.8-7.7 [facility] Comment on above: Order Comment: DEBRA MELISSAW Performed By: #### T SH3, LIPID #### [facility] [address] Neutrophils/100 WBC Auto (Bl d)Ordered By: Ernst Boone on 01-01-2025 Neutrophils/100 WBC (Bld) Automated neutrophil % . [facility] Neutrophils/100 leukocytes i n Blood by Automated countOrdered By: Ernst Boone on 01-01-2025 Neutrophils/100 WBC (Bld) 69.5 % Normal . [facility] Comment on above: Order Comment: DEBRA MELISSAW Performed By: #### T SH3, LIPID #### [address] Nucleated erythrocytes [Pres ence] in Blood by Automated countOrdered By: Ernst Boone on 01-01-2025 Nucleated RBC Auto Ql (Bld) Nucleated erythrocytes [Presence] in Blood by Automated count 0-0.5 [facility] Nucleated RBC Auto Ql (Bld) 0.1 /100{WBC} 0-0.5 [facility] Platelet mean volume Auto (B ld) [Entitic vol]Ordered By: Ernst Boone on 01-01-2025 Platelet mean volume (Bld) [Entitic vol] Platelet mean volume [Entitic volume] in Blood by Automated count 6.3-10.7 [facility] Platelet mean volume [Entiti c volume] in Blood by Automated countOrdered By: Ernst Boone on 01-01-2025 Platelet mean volume (Bld) [Entitic vol] 7.5 fL Normal 6.3-10.7 [facility] Comment on above: Order Comment: DEBRA MELISSAW Performed By: #### T SH3, LIPID #### [facility] [address] Platelets Auto (Bld) [#/Vol] Ordered By: Ernst Boone on 01-01-2025 Platelets (Bld) [#/Vol] Platelets [#/volume] in Blood by Automated count 150-450 [facility] Platelets [#/volume] in Bloo d by Automated countOrdered By: Ernst Rhodess on 01-01-2025 Platelets (Bld) [#/Vol] 188 10*3/uL Normal 150-450 [facility] Comment on above: Order Comment: DEBRA MELISSAW Performed By: #### T SH3, LIPID #### [address] RBC Auto (Bld) [#/Vol]Ordere d By: Ernst Rhodeschelsey on 01-01-2025 RBC (Bld) [#/Vol] Erythrocytes [#/volu me] in Blood by Automated count High 3.60-5.00 [facility] WBC Auto (Bld) [#/Vol]Ordere d By: Ernst Boone on 01-01-2025 WBC (Bld) [#/Vol] Leukocytes [#/volume ] in Blood by Automated count 3.8-11.6 [facility] Basophils Auto (Bld) [#/Vol] Ordered By: Ernst Rhodeschelsey on 12-12-2024 Basophils (Bld) [#/Vol] Automated basophil count 0.0-0.2 [facility] Basophils [#/volume] in Bloo d by Automated countOrdered By: Ernst Rhodeschelsey on 12-12-2024 Basophils (Bld) [#/Vol] 0.1 10*3/uL Normal 0.0-0.2 [facility] Comment on above: Result Comment: PERF ORMED BY: [place] [address] PATHOLOGIST INTERN ARCHITECT NORAH LEVI M.D. Performed By: #### T SH3, LIPID #### [place] [address] [place] Basophils/100 WBC Auto (Bld) Ordered By: Ernst Boone on 12-12-2024 Basophils/100 WBC (Bld) Automated basophil % . [facility] Basophils/100 leukocytes in Blood by Automated countOrdered By: Ernst Boone on 12-12-2024 Basophils/100 WBC (Bld) 0.7 % Normal . [facility] Comment on above: Performed By: #### T SH3, LIPID #### [address] Complete Blood Count Auto Di ffon 12-12-2024 Mean Corpuscular HGB Conc 32.8 g/dL Normal 32.0-35.0 [facility] Comment on above: Performed By: #### T SH3, LIPID #### [address] NRBC% 0.1 /100{WBC} Normal 0-0.5 [facility] Comment on above: Performed By: #### T SH3, LIPID #### [address] Eosinophils Auto (Bld) [#/Vo l]Ordered By: Ernst Boone on 12-12-2024 Eosinophils (Bld) [#/Vol] Automated eosinophil count 0.0-0.45 [facility] Eosinophils [#/volume] in Bl ood by Automated countOrdered By: Ernst Boone on 12-12-2024 Eosinophils (Bld) [#/Vol] 0.1 10*3/uL Normal 0.0-0.45 [facility] Comment on above: Performed By: #### T SH3, LIPID #### [address] Eosinophils/100 WBC Auto (Bl d)Ordered By: Ernst Boone on 12-12-2024 Eosinophils/100 WBC (Bld) Automated eosinophil % . [facility] Eosinophils/100 leukocytes i n Blood by Automated countOrdered By: Ernst Boone on 12-12-2024 Eosinophils/100 WBC (Bld) 1.5 % Normal . [facility] Comment on above: Performed By: #### T SH3, LIPID #### [address] Erythrocyte distribution wid th Auto (RBC) [Ratio]Ordered By: Ernst Rhodess on 12-12-2024 Erythrocyte distribution width (RBC) [Ratio] Erythrocyte distribution width [Ratio] by Automated count 11.9-15.3 [facility] Erythrocyte distribution wid th [Ratio] by Automated countOrdered By: Ernst Rhodess on 12-12-2024 Erythrocyte distribution width (RBC) [Ratio] 14.6 % Normal 11.9-15.3 [facility] Comment on above: Performed By: #### T SH3, LIPID #### [facility] [address] [place] [address] Erythrocytes [#/volume] in B lood by Automated countOrdered By: Ernst Rhodeschelsey on 12-12-2024 RBC (Bld) [#/Vol] 5.42 10*6/uL High 3.60-5.00 [facility] Comment on above: Performed By: #### T SH3, LIPID #### [address] Hematocrit Auto (Bld) [Volum e fraction]Ordered By: Ernst Rhodess on 12-12-2024 Hematocrit (Bld) [Volume fraction] Hematocrit [Volume Fraction] of Blood by Automated count 34.0-46.4 [facility] Hematocrit [Volume Fraction] of Blood by Automated countOrdered By: Ernst Rhodess on 12-12-2024 Hematocrit (Bld) [Volume fraction] 42.8 % Normal 34.0-46.4 [facility] Comment on above: Performed By: #### T SH3, LIPID #### [facility] [address] [place] [address] Hemoglobin [Mass/volume] in BloodOrdered By: Ernst Rhodess on 12-12-2024 Hemoglobin (Bld) [Mass/Vol] Hemoglobin [Mass/volume] in Blood 11.8-15.4 [facility] Hemoglobin (Bld) [Mass/Vol] 14.1 g/dL Normal 11.8-15.4 [facility] Comment on above: Performed By: #### T SH3, LIPID #### [facility] [address] [place] [address] Leukocytes [#/volume] correc steff for nucleated erythrocytes in Blood by Automated counOrdered By: Ernst Boone on 12-12-2024 WBC corrected for nucl RBC Auto (Bld) [#/Vol] Leukocytes [#/volume] corrected for nucleated erythrocytes in Blood by Automated coun 3.8-11.6 [facility] WBC corrected for nucl RBC Auto (Bld) [#/Vol] 9.9 10*3/uL 3.8-11.6 [facility] Leukocytes [#/volume] in Blo od by Automated countOrdered By: Ernst Boone on 12-12-2024 WBC (Bld) [#/Vol] 9.9 10*3/uL Normal 3.8-11.6 [facility] Comment on above: Performed By: #### T SH3, LIPID #### [facility] [address] [place] [address] Lymphocytes Auto (Bld) [#/Vo l]Ordered By: Ernst Boone on 12-12-2024 Lymphocytes (Bld) [#/Vol] Lymphocytes [#/volume] in Blood by Automated count 1.00-4.8 [facility] Lymphocytes [#/volume] in Bl ood by Automated countOrdered By: Ernst Boone on 12-12-2024 Lymphocytes (Bld) [#/Vol] 1.6 10*3/uL Normal 1.00-4.8 [facility] Comment on above: Performed By: #### T SH3, LIPID #### [facility] [address] [place] [address] Lymphocytes/100 WBC Auto (Bl d)Ordered By: Ernst Boone on 12-12-2024 Lymphocytes/100 WBC (Bld) Lymphocytes/100 leukocytes in Blood by Automated count . [facility] Lymphocytes/100 leukocytes i n Blood by Automated countOrdered By: Ernst Boone on 12-12-2024 Lymphocytes/100 WBC (Bld) 15.8 % Normal . [facility] Comment on above: Performed By: #### T SH3, LIPID #### [facility] [address] [place] [address] MCH Auto (RBC) [Entitic mass ]Ordered By: Ernst Boone on 12-12-2024 MCH (RBC) [Entitic mass] MCH [Entitic mass] by Automated count 24.7-34.3 [facility] MCH [Entitic mass] by Automa steff countOrdered By: Ernst Boone on 12-12-2024 MCH (RBC) [Entitic mass] 25.9 pg Normal 24.7-34.3 [facility] Comment on above: Performed By: #### T SH3, LIPID #### [facility] [address] [place] [address] MCHC Auto (RBC) [Mass/Vol]Or dered By: Ernst Boone on 12-12-2024 MCHC (RBC) [Mass/Vol] MCHC [Mass/volume] by Automated count 32.0-35.0 [facility] MCHC (RBC) [Mass/Vol] 32.8 g/dL 32.0-35.0 [facility] MCV Auto (RBC) [Entitic vol] Ordered By: Ernst Boone on 12-12-2024 MCV (RBC) [Entitic vol] MCV [Entitic volume] by Automated count Low 80-100 [facility] MCV [Entitic volume] by Auto mated countOrdered By: Ernst Boone on 12-12-2024 MCV (RBC) [Entitic vol] 79.0 fL Low 80-100 [facility] Comment on above: Performed By: #### T SH3, LIPID #### [address] Monocytes Auto (Bld) [#/Vol] Ordered By: Ernst Boone on 12-12-2024 Monocytes (Bld) [#/Vol] Automated blood monocyte count 0.0-0.8 [facility] Monocytes [#/volume] in Bloo d by Automated countOrdered By: Ernst Boone on 12-12-2024 Monocytes (Bld) [#/Vol] 0.6 10*3/uL Normal 0.0-0.8 [facility] Comment on above: Performed By: #### T SH3, LIPID #### [address] Monocytes/100 WBC Auto (Bld) Ordered By: Ernst Boone on 12-12-2024 Monocytes/100 WBC (Bld) Automated monocyte % . [facility] Monocytes/100 leukocytes in Blood by Automated countOrdered By: Ernst Boone on 12-12-2024 Monocytes/100 WBC (Bld) 6.5 % Normal . [facility] Comment on above: Performed By: #### T SH3, LIPID #### [address] NT-proBNPon 12-12-2024 Natriuretic peptide B (Bld) [Mass/Vol] 81 pg/mL Normal 0-249 [facility] Comment on above: Result Comment: The following cut-points have been suggested for the use of proBNP for the diagnostic evaluation of heart failure (HF) in patients with acute dyspnea: Modality Age Optimal Cut (years) Point Diagnosis (rule in HF) <50 450 pg/mL 50 - 75 900 pg/mL >75 1800 pg/mL Exclusion (rule out HF) Age independent 300 pg/mL Performed at: [facility] [place] [id number] Prepress Stripper: Maxime Moss PhD, Phone: [phone] PERFORMED BY: [place] [address] PATHOLOGIST INTERN ARCHITECT NORAH LEVI M.D. Performed By: #### T SH3, LIPID #### [address] Natriuretic peptide.B prohor jose d N-Terminal [Mass/volume] in Serum or PlasmaOrdered By: Ernst Boone on 12-12-2024 Natriuretic peptide.B prohormone N-Terminal [Mass/Vol] Natriuretic peptide.B prohormone N-Terminal [Mass/volume] in Serum or Plasma 0-249 [facility] Comment on above: The following cut-po ints have been suggested for theuse of proBNP for the diagnostic evaluation of heartfailure (HF) in patients with acute dyspnea:Modality Age Optimal Cut (years) Point Diag nosis (rule in HF) <50 450 pg/mL 50 - 75 900 pg/mL >75 1800 pg/mLExclusion (rule out HF) Age independent 300 pg/mLPerformed at: [email or web address] [id number] Director: Maxime Moss PhD, Phone: [phone] Natriuretic peptide.B prohormone N-Terminal [Mass/Vol] 81 pg/mL 0-249 [facility] Comment on above: The following cut-po ints have been suggested for theuse of proBNP for the diagnostic evaluation of heartfailure (HF) in patients with acute dyspnea:Modality Age Optimal Cut (years) Point Diag nosis (rule in HF) <50 450 pg/mL 50 - 75 900 pg/mL >75 1800 pg/mLExclusion (rule out HF) Age independent 300 pg/mLPerformed at: [email or web address] [id number] Director: Maxime Moss PhD, Phone: [phone] Neutrophils Auto (Bld) [#/Vo l]Ordered By: Ernst Boone on 12-12-2024 Neutrophils (Bld) [#/Vol] Neutrophils [#/volume] in Blood by Automated count 1.8-7.7 [facility] Neutrophils [#/volume] in Bl ood by Automated countOrdered By: Ernst Boone on 12-12-2024 Neutrophils (Bld) [#/Vol] 7.5 10*3/uL Normal 1.8-7.7 [facility] Comment on above: Performed By: #### T SH3, LIPID #### [address] Neutrophils/100 WBC Auto (Bl d)Ordered By: Ernst Boone on 12-12-2024 Neutrophils/100 WBC (Bld) Automated neutrophil % . [facility] Neutrophils/100 leukocytes i n Blood by Automated countOrdered By: Ernst Boone on 12-12-2024 Neutrophils/100 WBC (Bld) 75.5 % Normal . [facility] Comment on above: Performed By: #### T SH3, LIPID #### [facility] [address] [place] [address] [place] Nucleated erythrocytes [Pres ence] in Blood by Automated countOrdered By: Ernst Boone on 12-12-2024 Nucleated RBC Auto Ql (Bld) Nucleated erythrocytes [Presence] in Blood by Automated count 0-0.5 [facility] Nucleated RBC Auto Ql (Bld) 0.1 /100{WBC} 0-0.5 [facility] Platelet mean volume Auto (B ld) [Entitic vol]Ordered By: Ernst Boone on 12-12-2024 Platelet mean volume (Bld) [Entitic vol] Platelet mean volume [Entitic volume] in Blood by Automated count 6.3-10.7 [facility] Platelet mean volume [Entiti c volume] in Blood by Automated countOrdered By: Ernst Boone on 12-12-2024 Platelet mean volume (Bld) [Entitic vol] 7.8 fL Normal 6.3-10.7 [facility] Comment on above: Performed By: #### T SH3, LIPID #### [facility] [address] [place] [address] [place] Platelets Auto (Bld) [#/Vol] Ordered By: Ernst Boone on 12-12-2024 Platelets (Bld) [#/Vol] Platelets [#/volume] in Blood by Automated count 150-450 [facility] Platelets [#/volume] in Bloo d by Automated countOrdered By: Ernst Boone on 12-12-2024 Platelets (Bld) [#/Vol] 203 10*3/uL Normal 150-450 [facility] Comment on above: Performed By: #### T SH3, LIPID #### [facility] [address] [place] [address] [place] RBC Auto (Bld) [#/Vol]Ordere d By: Ernst Boone on 12-12-2024 RBC (Bld) [#/Vol] Erythrocytes [#/volu me] in Blood by Automated count High 3.60-5.00 [facility] WBC Auto (Bld) [#/Vol]Ordere d By: Ernst Boone on 12-12-2024 WBC (Bld) [#/Vol] Leukocytes [#/volume ] in Blood by Automated count 3.8-11.6 [facility] MM screening mammo BI w/CADo n 11-10-2024 MM screening mammo BI w/CAD [facility] [address] [place] [address] Mammography Report Signed Patient: Flash Irving MR#: [id number] : 1975 Acct:[id number] Age/Sex: 49 / F Adm Date: 11/10/24 Loc: [place] Room: Type: [facility] Attending Dr: Gennaro Londono DO Ordering Provider: Gennaro Londono DO Date of Service: 11/10/24 Procedure(s): MM screening mammo BI w/CAD Accession Number(s): ([id number]) MM/MM screening mammo BI w/CAD: Z12.31 Copies [...] Jabari Cuevas DO 11/10/241624 Signed By: 11/10/241625 [place] [facility] Mammography reportOrdered By : Jabari Cuevas on 11-10-2024 Diagnostic imaging study [facility] [address] [place] [address] Mammography Report Signed Patient: Flash Irving MR#: [id number] : 1975 Acct:[id number] Age/Sex: 49 / F Adm Date: 5 Loc: [place] Room: Type: [facility] Attending Dr: Gennaro Londono DO Ordering Provider: Gennaro Londono DO Date of Service: 11/10/24 Procedure(s): MM screening mammo BI w/CAD Accession Number(s): ([id number]) MM/MM screening mammo BI w/CAD: Z12.31 Copies [...] DO 03/28/25 1625 Signed By: 11/10/[address] [facility] Basic Metabolic Panelon 10-15 Anion gap [Moles/Vol] 10.7 mmol/L Normal 6.0-15.0 [facility] Comment on above: Performed By: #### B MP #### [address] Calcium [Mass/Vol] 8.6 mg/dL Normal 8.6-10.3 [facility] Comment on above: Result Comment: PERF ORMED BY: [place] [address] PATHOLOGIST INTERN ARCHITECT NORAH LEVI M.D. Performed By: #### B MP #### [address] Chloride [Moles/Vol] 106 mmol/L Normal 98-107 [facility] Comment on above: Performed By: #### B MP #### [address] CO2 [Moles/Vol] 29.3 mmol/L Normal 21.0-31.0 [facility] Comment on above: Performed By: #### B MP #### [address] Creatinine [Mass/Vol] 0.61 mg/dL Normal 0.60-1.20 [facility] Comment on above: Performed By: #### B MP #### [address] GFR/1.73 sq M.predicted MDRD (S/P/Bld) [Vol rate/Area] mL/min/{1.73_m2} Normal [facility] Comment on above: Performed By: #### B MP #### [address] Glucose [Mass/Vol] 82 mg/dL Normal 70-100 [facility] Comment on above: Result Comment: [facility] Glucose Reference Range is dependent on time and content of last meal. Glucose of more than 200 mg/dL in a nonstressed, ambulatory subject supports the diagnosis of Diabetes Mellitus. ADA recommended reference range Performed By: #### B MP #### [facility] [address] [place] [address] [place] Potassium [Moles/Vol] 4.0 mmol/L Normal 3.5-5.1 [facility] Comment on above: Performed By: #### B MP #### [facility] [address] Sodium [Moles/Vol] 142 mmol/L Normal 136-145 [facility] Comment on above: Performed By: #### B MP #### [facility] [address] Urea nitrogen [Mass/Vol] 8 mg/dL Normal 7-25 [facility] Comment on above: Performed By: #### B MP #### [facility] [address] Calcium [Mass/volume] in Ser um or PlasmaOrdered By: Ernst Boone on 11-09-2024 Calcium [Mass/Vol] Calcium [Mass/volume ] in Serum or Plasma 8.6-10.3 [facility] Carbon dioxide, total [Moles /volume] in Serum or PlasmaOrdered By: Ernst Boone on 11-09-2024 CO2 [Moles/Vol] Carbon dioxide, tota l [Moles/volume] in Serum or Plasma 21.0-31.0 [facility] Chloride [Moles/volume] in S luz maria or PlasmaOrdered By: Ernst Boone on 11-09-2024 Chloride [Moles/Vol] Chloride [Moles/vol ume] in Serum or Plasma 98-107 [facility] Creatinine [Mass/volume] in Serum or PlasmaOrdered By: Ernst Boone on 11-09-2024 Creatinine [Mass/Vol] Creatinine [Mass/v olume] in Serum or Plasma 0.60-1.20 [facility] Glucose [Mass/volume] in Ser um or PlasmaOrdered By: Ernst Boone on 11-09-2024 Glucose [Mass/Vol] Glucose [Mass/volume ] in Serum or Plasma 70-100 [facility] Comment on above: ADA recommended refe rence rangeRandom Glucose Reference Range is dependent on time and content of last meal. Glucose of more than 200 mg/dL in a nonstressed, ambulatory subject supports the diagnosis of Diabetes Mellitus. No Panel InformationOrdered By: Ernst Boone on 11-09-2024 Estimated GFR (CKD-EPI) > 60.0 mL/Min [facility] Creatinine Clearance (Chem N/A [facility] Potassium [Moles/volume] in Serum or PlasmaOrdered By: Ernst Boone on 11-09-2024 Potassium [Moles/Vol] Potassium [Moles/v olume] in Serum or Plasma 3.5-5.1 [facility] Serum or plasma anion gap de terminationOrdered By: Ernst Boone on 11-09-2024 Anion gap [Moles/Vol] Serum or plasma an ion gap determination 6.0-15.0 [facility] Sodium [Moles/volume] in Ser um or PlasmaOrdered By: Ernst Boone on 11-09-2024 Sodium [Moles/Vol] Sodium [Moles/volume ] in Serum or Plasma 136-145 [facility] Urea nitrogen [Mass/volume] in Serum or PlasmaOrdered By: Ernst Boone on 11-09-2024 Urea nitrogen [Mass/Vol] Urea nitrogen [Mass/volume] in Serum or Plasma 7-25 [facility] Basic Metabolic Panelon 09-17 Anion gap [Moles/Vol] 8.2 mmol/L Normal 6.0-15.0 [facility] Comment on above: Performed By: #### B MP #### [facility] [address] [place] [address] [place] Calcium [Mass/Vol] 8.7 mg/dL Normal 8.6-10.3 [facility] Comment on above: Performed By: #### B MP #### [facility] [address] [id number] [place] Chloride [Moles/Vol] 105 mmol/L Normal 98-107 [facility] Comment on above: Performed By: #### B MP #### [facility] [address] [id number] [place] CO2 [Moles/Vol] 28.7 mmol/L Normal 21.0-31.0 [facility] Comment on above: Performed By: #### B MP #### [address] Creatinine [Mass/Vol] 0.66 mg/dL Normal 0.60-1.20 [facility] Comment on above: Performed By: #### B MP #### [place] [address] [place] Creatinine Clr Calc Pharmacy 95.48 Normal [facility] Comment on above: Result Comment: PERF ORMED BY: [place] [address] PATHOLOGIST INTERN ARCHITECT NORAH LEVI M.D. Performed By: #### B MP #### [place] [address] [place] GFR/1.73 sq M.predicted MDRD (S/P/Bld) [Vol rate/Area] mL/min/{1.73_m2} Normal [facility] Comment on above: Performed By: #### B MP #### [address] Glucose [Mass/Vol] 73 mg/dL Normal 70-100 [facility] Comment on above: Result Comment: [facility] Glucose Reference Range is dependent on time and content of last meal. Glucose of more than 200 mg/dL in a nonstressed, ambulatory subject supports the diagnosis of Diabetes Mellitus. ADA recommended reference range Performed By: #### B MP #### [place] [address] [place] Potassium [Moles/Vol] 3.9 mmol/L Normal 3.5-5.1 [facility] Comment on above: Performed By: #### B MP #### [place] [address] [place] Sodium [Moles/Vol] 138 mmol/L Normal 136-145 [facility] Comment on above: Performed By: #### B MP #### [place] [address] [place] Urea nitrogen [Mass/Vol] 10 mg/dL Normal 7-25 [facility] Comment on above: Performed By: #### B MP #### [facility] [address] Calcium [Mass/volume] in Ser um or PlasmaOrdered By: Paddy Wiggins on 10-06-2024 Calcium [Mass/Vol] Calcium [Mass/volume ] in Serum or Plasma 8.6-10.3 [facility] Carbon dioxide, total [Moles /volume] in Serum or PlasmaOrdered By: Paddy Wiggins on 10-06-2024 CO2 [Moles/Vol] Carbon dioxide, tota l [Moles/volume] in Serum or Plasma 21.0-31.0 [facility] Chloride [Moles/volume] in S luz maria or PlasmaOrdered By: Paddy Wiggins on 10-06-2024 Chloride [Moles/Vol] Chloride [Moles/vol ume] in Serum or Plasma 98-107 [facility] Creatinine [Mass/volume] in Serum or PlasmaOrdered By: Paddy Wiggins on 10-06-2024 Creatinine [Mass/Vol] Creatinine [Mass/v olume] in Serum or Plasma 0.60-1.20 [facility] Glucose [Mass/volume] in Ser um or PlasmaOrdered By: Paddy Wiggins on 10-06-2024 Glucose [Mass/Vol] Glucose [Mass/volume ] in Serum or Plasma 70-100 [facility] Comment on above: ADA recommended refe rence rangeRandom Glucose Reference Range is dependent on time and content of last meal. Glucose of more than 200 mg/dL in a nonstressed, ambulatory subject supports the diagnosis of Diabetes Mellitus. No Panel InformationOrdered By: Paddy Wiggins on 10-06-2024 Estimated GFR (CKD-EPI) > 60.0 mL/Min [facility] Creatinine Clearance (Chem 95.48 [facility] Potassium [Moles/volume] in Serum or PlasmaOrdered By: Paddy Wiggins on 10-06-2024 Potassium [Moles/Vol] Potassium [Moles/v olume] in Serum or Plasma 3.5-5.1 [facility] Serum or plasma anion gap de terminationOrdered By: Paddy Wiggins on 10-06-2024 Anion gap [Moles/Vol] Serum or plasma an ion gap determination 6.0-15.0 [facility] Sodium [Moles/volume] in Ser um or PlasmaOrdered By: Paddy Wiggins on 10-06-2024 Sodium [Moles/Vol] Sodium [Moles/volume ] in Serum or Plasma 136-145 [facility] Urea nitrogen [Mass/volume] in Serum or PlasmaOrdered By: Paddy Wiggins on 10-06-2024 Urea nitrogen [Mass/Vol] Urea nitrogen [Mass/volume] in Serum or Plasma 7-25 [facility] Basic Metabolic Panelon 09-17 Anion gap [Moles/Vol] 2.8 mmol/L Low 6.0-15.0 [facility] Comment on above: Performed By: #### B MP #### [address] Calcium [Mass/Vol] 8.6 mg/dL Normal 8.6-10.3 [facility] Comment on above: Performed By: #### B MP #### [address] Chloride [Moles/Vol] 113 mmol/L High 98-107 [facility] Comment on above: Performed By: #### B MP #### [address] CO2 [Moles/Vol] 27.7 mmol/L Normal 21.0-31.0 [facility] Comment on above: Performed By: #### B MP #### [address] Creatinine [Mass/Vol] 0.60 mg/dL Normal 0.60-1.20 [facility] Comment on above: Performed By: #### B MP #### [place] [address] [place] Creatinine Clr Calc Pharmacy 105.03 Normal [facility] Comment on above: Result Comment: PERF ORMED BY: [place] [address] PATHOLOGIST INTERN ARCHITECT NORAH LEVI M.D. Performed By: #### B MP #### [facility] [address] [place] [address] [place] GFR/1.73 sq M.predicted MDRD (S/P/Bld) [Vol rate/Area] mL/min/{1.73_m2} Normal [facility] Comment on above: Performed By: #### B MP #### [place] [address] [place] Glucose [Mass/Vol] 77 mg/dL Normal 70-100 [facility] Comment on above: Result Comment: [facility] Glucose Reference Range is dependent on time and content of last meal. Glucose of more than 200 mg/dL in a nonstressed, ambulatory subject supports the diagnosis of Diabetes Mellitus. ADA recommended reference range Performed By: #### B MP #### [address] Potassium [Moles/Vol] 4.5 mmol/L Significan t change down 3.5-5.1 [facility] Comment on above: Performed By: #### B MP #### [place] [address] [place] Sodium [Moles/Vol] 139 mmol/L Normal 136-145 [facility] Comment on above: Performed By: #### B MP #### [place] [address] [place] Urea nitrogen [Mass/Vol] 8 mg/dL Normal 7-25 [facility] Comment on above: Performed By: #### B MP #### [place] [address] [place] C reactive protein [Mass/vol ume] in Serum or PlasmaOrdered By: Paddy Wiggins on 10-05-2024 CRP [Mass/Vol] C reactive protein [Mass/volume] in Serum or Plasma 0.0-0.5 [facility] C-Reactive Proteinon 025 CRP [Mass/Vol] mg/L Normal 0.0-0.5 [facility] Comment on above: Result Comment: PERF ORMED BY: [address] [address] PATHOLOGIST INTERN ARCHITECT NORAH LEVI M.D. Performed By: #### B MP #### [address] Alanine aminotransferase [En zymatic activity/volume] in Serum or PlasmaOrdered By: Mat Perez on 10-04-2024 ALT [Catalytic activity/Vol] Alanine aminotransferase [Enzymatic activity/volume] in Serum or Plasma 7-52 [facility] Albumin [Mass/volume] in Ser um or Plasma by Bromocresol green (BCG) dye binding methoOrdered By: Mat Perez on 10-04-2024 Albumin BCG dye [Mass/Vol] Albumin [Mass/volume] in Serum or Plasma by Bromocresol green (BCG) dye binding metho 3.5-5.7 [facility] Alkaline phosphatase [Enzyma tic activity/volume] in Serum or PlasmaOrdered By: Mat Perez on 10-04-2024 ALP [Catalytic activity/Vol] Alkaline phosphatase [Enzymatic activity/volume] in Serum or Plasma 34-104 [facility] Aspartate aminotransferase [ Enzymatic activity/volume] in Serum or PlasmaOrdered By: Mat Perez on 10-04-2024 AST [Catalytic activity/Vol] Aspartate aminotransferase [Enzymatic activity/volume] in Serum or Plasma Low 13-39 [facility] B-Type Natriuretic Peptideon 10-04-2024 Natriuretic peptide B (Bld) [Mass/Vol] 24.0 pg/mL Normal 5-100 [facility] Comment on above: Result Comment: PERF ORMED BY: [place] [address] PATHOLOGIST INTERN ARCHITECT NORAH LEVI M.D. Performed By: #### B MP #### [facility] [address] [place] [address] Basophils Auto (Bld) [#/Vol] Ordered By: Mat Perez on 10-04-2024 Basophils (Bld) [#/Vol] Automated basophil count 0.0-0.2 [facility] Basophils/100 WBC Auto (Bld) Ordered By: Mat Perez on 10-04-2024 Basophils/100 WBC (Bld) Automated basophil % . [facility] Bilirubin.total [Mass/volume ] in Serum or PlasmaOrdered By: Mat Perez on 10-04-2024 Bilirubin [Mass/Vol] Bilirubin.total [Mass/volume] in Serum or Plasma 0.3-1.0 [facility] BioFire Not Detectedon 10-04 BioFire Not Detected Not detected Normal Not Detecte [facility] Comment on above: Result Comment: This is a duplicate RP2.1 COVID (PCR) result to be used for statistical tracking purpose only. PERFORMED BY: [place] [address] PATHOLOGIST INTERN ARCHITECT NORAH LEVI M.D. Performed By: #### C DT #### [address] COVID-19 Detected/Not Detect edOrdered By: Paddy Wiggins on 10-04-2024 SARS-CoV-2 (COVID-19) RNA JONI+non-probe Ql (Nph) Not detected Not Detecte [facility] Comment on above: This is a duplicate RP2.1 COVID (PCR) result to be used for statistical tracking purpose only. CT chest wo conon 10-04-2024 CT chest wo con [place] [address] CT Scan Report Signed Patient: Flash Irving MR#: [id number] 6 : 1975 Acct:[id number] Age/Sex: 49 / F ADM Date: 10/04/24 Loc: ER Room: Type: [facility] ER Attending Dr: Copies to: Mat [...] Jabari Cuevas M.D.10/04/2024 2:03 PM Dictation Location: [place] [address] Transcribed By: [facility] 10/04/24 1403 Dictated By: Jabari Cuevas DO 10/04/24 1400 Signed By: 10/04/24 1403 Normal [facility] Calcium [Mass/volume] in Ser um or PlasmaOrdered By: Mat Perez on 10-04-2024 Calcium [Mass/Vol] Calcium [Mass/volume ] in Serum or Plasma Low 8.6-10.3 [facility] Carbon dioxide, total [Moles /volume] in Serum or PlasmaOrdered By: Mat Perez on 10-04-2024 CO2 [Moles/Vol] Carbon dioxide, tota l [Moles/volume] in Serum or Plasma 21.0-31.0 [facility] Chloride [Moles/volume] in S luz maria or PlasmaOrdered By: Mat Perez on 10-04-2024 Chloride [Moles/Vol] Chloride [Moles/vol ume] in Serum or Plasma 98-107 [facility] Complete Blood Count Auto Di ffon 10-04-2024 Basophils (Bld) [#/Vol] 0.0 10*3/uL Normal 0.0-0.2 [facility] Comment on above: Result Comment: PERF ORMED BY: [facility] [address] [place] [address] PATHOLOGIST INTERN ARCHITECT NORAH LEVI M.D. Performed By: #### C MP, BNP, CK, HS TROP, CBC #### [address] Basophils/100 WBC (Bld) 0.4 % Normal . [facility] Comment on above: Performed By: #### C MP, BNP, CK, HS TROP, CBC #### [address] Eosinophils (Bld) [#/Vol] 0.1 10*3/uL Normal 0.0-0.45 [facility] Comment on above: Performed By: #### C MP, BNP, CK, HS TROP, CBC #### [address] Eosinophils/100 WBC (Bld) 0.7 % Normal . [facility] Comment on above: Performed By: #### C MP, BNP, CK, HS TROP, CBC #### [address] Erythrocyte distribution width (RBC) [Ratio] 16.3 % High 11.9-15.3 [facility] Comment on above: Performed By: #### C MP, BNP, CK, HS TROP, CBC #### [address] Hematocrit (Bld) [Volume fraction] 41.0 % Normal 34.0-46.4 [facility] Comment on above: Performed By: #### C MP, BNP, CK, HS TROP, CBC #### [address] Hemoglobin (Bld) [Mass/Vol] 13.4 g/dL Normal 11.8-15.4 [facility] Comment on above: Performed By: #### C MP, BNP, CK, HS TROP, CBC #### [address] Lymphocytes (Bld) [#/Vol] 1.2 10*3/uL Normal 1.00-4.8 [facility] Comment on above: Performed By: #### C MP, BNP, CK, HS TROP, CBC #### [address] Lymphocytes/100 WBC (Bld) 11.9 % Normal . [facility] Comment on above: Performed By: #### C MP, BNP, CK, HS TROP, CBC #### [address] MCH (RBC) [Entitic mass] 25.4 pg Normal 24.7-34.3 [facility] Comment on above: Performed By: #### C MP, BNP, CK, HS TROP, CBC #### [address] MCV (RBC) [Entitic vol] 77.4 fL Low 80-100 [facility] Comment on above: Performed By: #### C MP, BNP, CK, HS TROP, CBC #### [address] Mean Corpuscular HGB Conc 32.7 g/dL Normal 32.0-35.0 [facility] Comment on above: Performed By: #### C MP, BNP, CK, HS TROP, CBC #### [address] Monocytes (Bld) [#/Vol] 0.7 10*3/uL Normal 0.0-0.8 [facility] Comment on above: Performed By: #### C MP, BNP, CK, HS TROP, CBC #### [place] [address] [place] Monocytes/100 WBC (Bld) 15.95 % Normal 0.00-20.00 [facility] Comment on above: Performed By: #### C MP, BNP, CK, HS TROP, CBC #### [address] Monocytes/100 WBC (Bld) 6.8 % Normal . [facility] Comment on above: Performed By: #### C MP, BNP, CK, HS TROP, CBC #### [place] [address] [place] Neutrophils (Bld) [#/Vol] 8.2 10*3/uL High 1.8-7.7 [facility] Comment on above: Performed By: #### C MP, BNP, CK, HS TROP, CBC #### [address] Neutrophils/100 WBC (Bld) 80.2 % Normal . [facility] Comment on above: Performed By: #### C MP, BNP, CK, HS TROP, CBC #### [address] NRBC% 0.1 /100{WBC} Normal 0-0.5 [facility] Comment on above: Performed By: #### C MP, BNP, CK, HS TROP, CBC #### [address] Platelet mean volume (Bld) [Entitic vol] 7.4 fL Normal 6.3-10.7 [facility] Comment on above: Performed By: #### C MP, BNP, CK, HS TROP, CBC #### [address] Platelets (Bld) [#/Vol] 155 10*3/uL Normal 150-450 [facility] Comment on above: Performed By: #### C MP, BNP, CK, HS TROP, CBC #### [address] RBC (Bld) [#/Vol] 5.29 10*6/uL High 3.60-5.00 [facility] Comment on above: Performed By: #### C MP, BNP, CK, HS TROP, CBC #### [address] WBC (Bld) [#/Vol] 10.3 10*3/uL Normal 3.8-11.6 [facility] Comment on above: Performed By: #### C MP, BNP, CK, HS TROP, CBC #### [address] Comprehensive Metabolic Pane ceferino 10-04-2024 Albumin [Mass/Vol] 4.1 g/dL Normal 3.5-5.7 [facility] Comment on above: Performed By: #### B MP #### [address] Albumin/Globulin [Mass ratio] 1.7 {ratio} Normal [facility] Comment on above: Performed By: #### B MP #### [address] ALP [Catalytic activity/Vol] 35 U/L Normal 34-104 [facility] Comment on above: Performed By: #### B MP #### [address] ALT [Catalytic activity/Vol] 8 U/L Normal 7-52 [facility] Comment on above: Performed By: #### B MP #### [address] Anion gap [Moles/Vol] 11.7 mmol/L Normal 6.0-15.0 [facility] Comment on above: Performed By: #### B MP #### [address] AST [Catalytic activity/Vol] 10 U/L Low 13-39 [facility] Comment on above: Performed By: #### B MP #### [address] Bilirubin [Mass/Vol] 0.6 mg/dL Normal 0.3-1.0 [facility] Comment on above: Performed By: #### B MP #### [address] Calcium [Mass/Vol] 8.4 mg/dL Low 8.6-10.3 [facility] Comment on above: Performed By: #### B MP #### [address] Chloride [Moles/Vol] 105 mmol/L Normal 98-107 [facility] Comment on above: Performed By: #### B MP #### [place] [address] [place] CO2 [Moles/Vol] 27.8 mmol/L Normal 21.0-31.0 [facility] Comment on above: Performed By: #### B MP #### [address] Creatinine [Mass/Vol] 0.66 mg/dL Normal 0.60-1.20 [facility] Comment on above: Performed By: #### B MP #### [address] Creatinine Clr Calc Pharmacy 95.81 Normal [facility] Comment on above: Result Comment: PERF ORMED BY: [place] [address] PATHOLOGIST INTERN ARCHITECT NORAH LEVI M.D. Performed By: #### B MP #### [address] GFR/1.73 sq M.predicted MDRD (S/P/Bld) [Vol rate/Area] mL/min/{1.73_m2} Normal [facility] Comment on above: Performed By: #### B MP #### [address] Globulin (S) [Mass/Vol] 2.4 g/dL Normal [facility] Comment on above: Performed By: #### B MP #### [address] Glucose [Mass/Vol] 100 mg/dL Normal 70-100 [facility] Comment on above: Result Comment: [facility] Glucose Reference Range is dependent on time and content of last meal. Glucose of more than 200 mg/dL in a nonstressed, ambulatory subject supports the diagnosis of Diabetes Mellitus. ADA recommended reference range Performed By: #### B MP #### [address] Potassium [Moles/Vol] 2.5 mmol/L Off scale low 3.5-5.1 [facility] Comment on above: Result Comment: Crit ical Result Called to and read back by: MARLENI GUTIÉRREZ at: 10/04/2024 13:56:39 by:[email or web address] Performed By: #### B MP #### [address] Protein [Mass/Vol] 6.5 g/dL Normal 6.4-8.9 [facility] Comment on above: Performed By: #### B MP #### [address] Sodium [Moles/Vol] 142 mmol/L Normal 136-145 [facility] Comment on above: Performed By: #### B MP #### [address] Urea nitrogen [Mass/Vol] 11 mg/dL Normal 7-25 [facility] Comment on above: Performed By: #### B MP #### [place] [id number] [facility] Creatine Kinaseon 10-04-2024 CK [Catalytic activity/Vol] 19 U/L Low 30-223 [facility] Comment on above: Performed By: #### B MP #### [address] Creatine kinase [Enzymatic a ctivity/volume] in Serum or PlasmaOrdered By: Mat Perez on 10-04-2024 CK [Catalytic activity/Vol] Creatine kinase [Enzymatic activity/volume] in Serum or Plasma Low 30-223 [facility] Creatinine [Mass/volume] in Serum or PlasmaOrdered By: Mat Perez on 10-04-2024 Creatinine [Mass/Vol] Creatinine [Mass/v olume] in Serum or Plasma 0.60-1.20 [facility] ECG 12 lead ECGon 10-04-2024 ECG 12 lead ECG [facility] [place] [address] [place] [address] Electrocardiograph Report Signed Patient: Flash Irving MR#: [id number] 6 : 1975 Acct:[id number] Age/Sex: 49 / F ADM Date: 10/04/24 Loc: Room: [address] [place] [address] Type: ADM INOo Attending Dr: Paddy Wiggins [...] By Mat Perez MD 10/04/241924 Normal [facility] Eosinophils Auto (Bld) [#/Vo l]Ordered By: Mat Perez on 10-04-2024 Eosinophils (Bld) [#/Vol] Automated eosinophil count 0.0-0.45 [facility] Eosinophils/100 WBC Auto (Bl d)Ordered By: Mat Perez on 10-04-2024 Eosinophils/100 WBC (Bld) Automated eosinophil % . [facility] Erythrocyte distribution wid th Auto (RBC) [Ratio]Ordered By: Mat Perez on 10-04-2024 Erythrocyte distribution width (RBC) [Ratio] Erythrocyte distribution width [Ratio] by Automated count High 11.9-15.3 [facility] Globulin Calc (S) [Mass/Vol] Ordered By: Mat Perez on 10-04-2024 Globulin (S) [Mass/Vol] Serum globulin measurement by calculation (mass/volume) [facility] Glucose [Mass/volume] in Ser um or PlasmaOrdered By: Mat Perez on 10-04-2024 Glucose [Mass/Vol] Glucose [Mass/volume ] in Serum or Plasma 70-100 [facility] Comment on above: ADA recommended refe rence rangeRandom Glucose Reference Range is dependent on time and content of last meal. Glucose of more than 200 mg/dL in a nonstressed, ambulatory subject supports the diagnosis of Diabetes Mellitus. Hematocrit Auto (Bld) [Volum e fraction]Ordered By: Mat Perez on 10-04-2024 Hematocrit (Bld) [Volume fraction] Hematocrit [Volume Fraction] of Blood by Automated count 34.0-46.4 [facility] Hemoglobin [Mass/volume] in BloodOrdered By: Mat Perez on 10-04-2024 Hemoglobin (Bld) [Mass/Vol] Hemoglobin [Mass/volume] in Blood 11.8-15.4 [facility] Leukocytes [#/volume] correc steff for nucleated erythrocytes in Blood by Automated counOrdered By: Mat Perez on 10-04-2024 WBC corrected for nucl RBC Auto (Bld) [#/Vol] Leukocytes [#/volume] corrected for nucleated erythrocytes in Blood by Automated coun 3.8-11.6 [facility] Lymphocytes Auto (Bld) [#/Vo l]Ordered By: Mat Perez on 10-04-2024 Lymphocytes (Bld) [#/Vol] Lymphocytes [#/volume] in Blood by Automated count 1.00-4.8 [facility] Lymphocytes/100 WBC Auto (Bl d)Ordered By: Mat Perez on 10-04-2024 Lymphocytes/100 WBC (Bld) Lymphocytes/100 leukocytes in Blood by Automated count . [facility] MCH Auto (RBC) [Entitic mass ]Ordered By: Mat Perez on 10-04-2024 MCH (RBC) [Entitic mass] MCH [Entitic mass] by Automated count 24.7-34.3 [facility] MCHC Auto (RBC) [Mass/Vol]Or dered By: Mat Perez on 10-04-2024 MCHC (RBC) [Mass/Vol] MCHC [Mass/volume] by Automated count 32.0-35.0 [facility] MCV Auto (RBC) [Entitic vol] Ordered By: Mat Perez on 10-04-2024 MCV (RBC) [Entitic vol] MCV [Entitic volume] by Automated count Low 80-100 [facility] Monocyte distribution width [Entitic volume] in Blood by AutomatedOrdered By: Mat Perez on 10-04-2024 Monocyte distribution width Auto (Bld) [Entitic vol] Monocyte distribution width [Entitic volume] in Blood by Automated 0.00-20.00 [facility] Monocytes Auto (Bld) [#/Vol] Ordered By: Mat Perez on 10-04-2024 Monocytes (Bld) [#/Vol] Automated blood monocyte count 0.0-0.8 [facility] Monocytes/100 WBC Auto (Bld) Ordered By: Mat Perez on 10-04-2024 Monocytes/100 WBC (Bld) Automated monocyte % . [facility] Natriuretic peptide B [Mass/ Vol]Ordered By: Mat Perez on 10-04-2024 Natriuretic peptide B (Bld) [Mass/Vol] BNP ser/plas 5-100 [facility] Neutrophils Auto (Bld) [#/Vo l]Ordered By: Mat Perez on 10-04-2024 Neutrophils (Bld) [#/Vol] Neutrophils [#/volume] in Blood by Automated count High 1.8-7.7 [facility] Neutrophils/100 WBC Auto (Bl d)Ordered By: Mat Perez on 10-04-2024 Neutrophils/100 WBC (Bld) Automated neutrophil % . [facility] No Panel InformationOrdered By: Mat Perez on 10-04-2024 Estimated GFR (CKD-EPI) > 60.0 mL/Min [facility] Creatinine Clearance (Chem 95.81 [facility] Nucleated erythrocytes [Pres ence] in Blood by Automated countOrdered By: Mat Perez on 10-04-2024 Nucleated RBC Auto Ql (Bld) Nucleated erythrocytes [Presence] in Blood by Automated count 0-0.5 [facility] Platelet mean volume Auto (B ld) [Entitic vol]Ordered By: Mat Perez on 10-04-2024 Platelet mean volume (Bld) [Entitic vol] Platelet mean volume [Entitic volume] in Blood by Automated count 6.3-10.7 [facility] Platelets Auto (Bld) [#/Vol] Ordered By: Mat Perez on 10-04-2024 Platelets (Bld) [#/Vol] Platelets [#/volume] in Blood by Automated count 150-450 [facility] Potassium [Moles/volume] in Serum or PlasmaOrdered By: Mat Perez on 10-04-2024 Potassium [Moles/Vol] Potassium [Moles/v olume] in Serum or Plasma Critically low 3.5-5.1 [facility] Comment on above: Critical Result Call ed to and read back by: MARLENI GUTIÉRREZ at: 10/04/2024 13:56:39 by:[id number] Protein [Mass/volume] in Ser um or PlasmaOrdered By: Mta Perez on 10-04-2024 Protein [Mass/Vol] Protein [Mass/volume ] in Serum or Plasma 6.4-8.9 [facility] RBC Auto (Bld) [#/Vol]Ordere d By: Mat Perez on 10-04-2024 RBC (Bld) [#/Vol] Erythrocytes [#/volu me] in Blood by Automated count High 3.60-5.00 [facility] Respiratory (Upper) Panel, P CRon 10-04-2024 [...] Influenza A H3 Blank Space PERFORMED BY: [facility] [address] PATHOLOGIST INTERN ARCHITECT NORAH LEVI M.D. Normal [facility] Comment on above: Performed By: #### C DT #### [address] Respiratory pathogens DNA an d RNA panel - Nasopharynx by JONI with non-probe detectionOrdered By: Paddy Wiggins on 10-04-2024 Respiratory pathogens DNA and RNA panel JONI+non-probe (Nph) Respiratory pathogens DNA and RNA panel - Nasopharynx by JONI with non-probe detection [facility] Respiratory pathogens DNA and RNA panel JONI+non-probe (Nph) Respiratory pathogens DNA and RNA panel - Nasopharynx by JONI with non-probe detection [facility] Serum or plasma albumin/glob ulin mass ratioOrdered By: Mat Perez on 10-04-2024 Albumin/Globulin [Mass ratio] Serum or plasma albumin/globulin mass ratio [facility] Serum or plasma anion gap de terminationOrdered By: Mat Perez on 10-04-2024 Anion gap [Moles/Vol] Serum or plasma an ion gap determination 6.0-15.0 [facility] Sodium [Moles/volume] in Ser um or PlasmaOrdered By: Mat Perez on 10-04-2024 Sodium [Moles/Vol] Sodium [Moles/volume ] in Serum or Plasma 136-145 [facility] Troponin I High Sensitivityo n 10-04-2024 Troponin I High Sensitivity 4 Normal 0-15 [facility] Comment on above: Result Comment: The Troponin units of report have been changed to meet the Chest Pain Accreditation requirement, element EC5.M1l2. Troponin units are changed from pg/ml to ng/L. Also, the decimal is removed and results are in whole numbers. PERFORMED BY: [place] [address] PATHOLOGIST INTERN ARCHITECT NORAH LEVI M.D. Performed By: #### B MP #### [address] Troponin I.cardiac [Mass/vol ume] in Serum or Plasma by Detection limit <= 0.01 ng/Ordered By: Mat Perez on 10-04-2024 Troponin I.cardiac DL <= 0.01 ng/mL [Mass/Vol] Troponin I.cardiac [Mass/volume] in Serum or Plasma by Detection limit <= 0.01 ng/ 0-15 [facility] Comment on above: The Troponin units [...] nitrogen [Mass/volume] in Serum or Plasma 03-09 [facility] WBC Auto (Bld) [#/Vol]Ordere d By: Mat Perez on 10-04-2024 WBC (Bld) [#/Vol] Leukocytes [#/volume ] in Blood by Automated count 3.8-11.6 [facility] X-ray reportOrdered By: Reginaldo Cuevas on 10-04-2024 Study report [facility] Main [place] [address] [place] [address] XRay Report Signed Patient: Flash Irving MR#: [id number] : 1975 Acct:[id number] Age/Sex: 49 / F ADM Date: 5 Loc: ER Room: Type: [facility] ER Attending Dr: Copies to: Mat [...] DO 10/04/24 1257 Signed By: 10/04/[address] [facility] XR chest 1V portableon 10-04 XR chest 1V portable [facility] Main [address] [address] XRay Report Signed Patient: Flash Irving MR#: [id number] : 1975 Acct:[id number] Age/Sex: 49 / F ADM Date: 10/04/24 Loc: ER Room: Type: [facility] ER Attending Dr: Copies to: Mat [...] 1257 Signed By: 10/04/24 1300 Normal [facility] Ceferino 09-27-2024 L ------- Specimen: [id number] Received: 09/28/24 Status: MYLES Wilkerson Num: [id number] Spec Type: Surgical Subm Dr: Gennaro Londono DO Tissues: A Endocervix - Curettings (ECC) Procedures: HE/2, Gross/Micro L4 Age/ Patient Sex Location Account Attending Physician Flash Irving 49/F [place] [id number] Gennaro Londono DO SPEC NUM: [id number] RECD: 09/28/24 STATUS: MYLES WILKERSON NUM: [id number] MITRA: 09/27/24-0000 [facility] DR: Gennaro Londono DO ENTERED: 09/28/24 JOSEPH EMANUEL: SPEC TYPE: Surgical DEPT: S ENTERED BY: [id number] RECV BY: [id number] ORDERED: HE/2, Gross/Micro L4 ORDERED: HE/2, Gross/Micro [...] submitted in a single cassette. (1, ns, [id number]) CPT Codes 09522 Specimen: [id number] Received: 09/28/24 Status: BENJAMINMaureen Wilkerson Num: [id number] Spec Type: Surgical Subm Dr: Gennaro Londono DO Tissues: A Endocervix - Curettings (ECC) Procedures: Adelaide MAZARIEGOS/Randee L4 Patient: Flash Irving [id number] (Continued) Signed (signature on file) Dung Arellano MD 09/29/24 0919 Normal [facility] Alanine aminotransferase [En zymatic activity/volume] in Serum or PlasmaOrdered By: Jabari Celeste on 08-14-2024 ALT [Catalytic activity/Vol] Alanine aminotransferase [Enzymatic activity/volume] in Serum or Plasma Low 7-52 [facility] Albumin [Mass/volume] in Ser um or Plasma by Bromocresol green (BCG) dye binding methoOrdered By: Jabari Celeste on 08-14-2024 Albumin BCG dye [Mass/Vol] Albumin [Mass/volume] in Serum or Plasma by Bromocresol green (BCG) dye binding metho 3.5-5.7 [facility] Alkaline phosphatase [Enzyma tic activity/volume] in Serum or PlasmaOrdered By: Jabari Celeste on 08-14-2024 ALP [Catalytic activity/Vol] Alkaline phosphatase [Enzymatic activity/volume] in Serum or Plasma 34-104 [facility] Aspartate aminotransferase [ Enzymatic activity/volume] in Serum or PlasmaOrdered By: Jabari Celeste on 08-14-2024 AST [Catalytic activity/Vol] Aspartate aminotransferase [Enzymatic activity/volume] in Serum or Plasma Low 13-39 [facility] Basophils Auto (Bld) [#/Vol] Ordered By: Jabari Celeste on 08-14-2024 Basophils (Bld) [#/Vol] Automated basophil count 0.0-0.2 [facility] Basophils/100 WBC Auto (Bld) Ordered By: Jabari Celeste on 08-14-2024 Basophils/100 WBC (Bld) Automated basophil % . [facility] Bilirubin.total [Mass/volume ] in Serum or PlasmaOrdered By: Jabari Celeste on 08-14-2024 Bilirubin [Mass/Vol] Bilirubin.total [Mass/volume] in Serum or Plasma 0.3-1.0 [facility] Calcium [Mass/volume] in Ser um or PlasmaOrdered By: Jabari Celeste on 08-14-2024 Calcium [Mass/Vol] Calcium [Mass/volume ] in Serum or Plasma 8.6-10.3 [facility] Carbon dioxide, total [Moles /volume] in Serum or PlasmaOrdered By: Jabari Celeste on 08-14-2024 CO2 [Moles/Vol] Carbon dioxide, tota l [Moles/volume] in Serum or Plasma High 21.0-31.0 [facility] Chloride [Moles/volume] in S luz maria or PlasmaOrdered By: Jabari Celeste on 08-14-2024 Chloride [Moles/Vol] Chloride [Moles/vol ume] in Serum or Plasma 98-107 [facility] Cholesterol [Mass/volume] in Serum or PlasmaOrdered By: Jabari Celeste on 08-14-2024 Cholesterol [Mass/Vol] Cholesterol [Mass /volume] in Serum or Plasma High 140-200 [facility] Comment on above: Chol less than 200 m g/dl low riskChol 201-239 mg/dl borderline riskChol 240 mg/dl and greater high risk Cholesterol in HDL [Mass/vol ume] in Serum or PlasmaOrdered By: Jabari Celeste on 08-14-2024 Cholesterol in HDL [Mass/Vol] Serum or plasma high density lipoprotein (HDL) cholesterol measurement 23-92 [facility] Comment on above: HDL CHOL ATP-III CLA SSIFICATION Cardiovascular RiskHDL > or equal to 60 mg/dL LOWHDL < 40 mg/dL HIGH Cholesterol in LDL Calc [Mas s/Vol]Ordered By: Jabari Celeste on 08-14-2024 Cholesterol in LDL [Mass/Vol] Cholesterol in LDL [Mass/volume] in Serum or Plasma by calculation High 0-100 [facility] Comment on above: LDL ATP III CLASSIFI CATIONLDL less than 100 mg/dL OptimalLDL 100-129 mg/dL Near or above optimalLDL 130-159 mg/dL Borderline highLDL 160-189 mg/dL HighLDL greater than 189 mg/dL Very high Cholesterol in VLDL Calc [Ma ss/Vol]Ordered By: Jabari Celeste on 08-14-2024 Cholesterol in VLDL [Mass/Vol] Cholesterol in VLDL [Mass/volume] in Serum or Plasma by calculation [facility] Complete Blood Count Auto Di ffon 08-14-2024 Basophils (Bld) [#/Vol] 0.0 10*3/uL Normal 0.0-0.2 [facility] Comment on above: Result Comment: PERF ORMED BY: [place] [address] PATHOLOGIST INTERN ARCHITECT NORAH LEVI M.D. Performed By: #### T SH3, LIPID #### [address] Basophils/100 WBC (Bld) 0.6 % Normal . [facility] Comment on above: Performed By: #### T SH3, LIPID #### [address] Eosinophils (Bld) [#/Vol] 0.1 10*3/uL Normal 0.0-0.45 [facility] Comment on above: Performed By: #### T SH3, LIPID #### [address] Eosinophils/100 WBC (Bld) 1.0 % Normal . [facility] Comment on above: Performed By: #### T SH3, LIPID #### [address] Erythrocyte distribution width (RBC) [Ratio] 14.6 % Normal 11.9-15.3 [facility] Comment on above: Performed By: #### T SH3, LIPID #### [address] Hematocrit (Bld) [Volume fraction] 42.4 % Normal 34.0-46.4 [facility] Comment on above: Performed By: #### T SH3, LIPID #### [address] Hemoglobin (Bld) [Mass/Vol] 13.5 g/dL Normal 11.8-15.4 [facility] Comment on above: Performed By: #### T SH3, LIPID #### [address] Lymphocytes (Bld) [#/Vol] 2.0 10*3/uL Normal 1.00-4.8 [facility] Comment on above: Performed By: #### T SH3, LIPID #### [address] Lymphocytes/100 WBC (Bld) 24.1 % Normal . [facility] Comment on above: Performed By: #### T SH3, LIPID #### [address] MCH (RBC) [Entitic mass] 25.2 pg Normal 24.7-34.3 [facility] Comment on above: Performed By: #### T SH3, LIPID #### [address] MCV (RBC) [Entitic vol] 79.0 fL Low 80-100 [facility] Comment on above: Performed By: #### T SH3, LIPID #### [address] Mean Corpuscular HGB Conc 31.9 g/dL Low 32.0-35.0 [facility] Comment on above: Performed By: #### T SH3, LIPID #### [address] Monocytes (Bld) [#/Vol] 0.7 10*3/uL Normal 0.0-0.8 [facility] Comment on above: Performed By: #### T SH3, LIPID #### [address] Monocytes/100 WBC (Bld) 7.7 % Normal . [facility] Comment on above: Performed By: #### T SH3, LIPID #### [address] Neutrophils (Bld) [#/Vol] 5.6 10*3/uL Normal 1.8-7.7 [facility] Comment on above: Performed By: #### T SH3, LIPID #### [address] Neutrophils/100 WBC (Bld) 66.6 % Normal . [facility] Comment on above: Performed By: #### T SH3, LIPID #### [address] NRBC% 0.1 /100{WBC} Normal 0-0.5 [facility] Comment on above: Performed By: #### T SH3, LIPID #### [address] Platelet mean volume (Bld) [Entitic vol] 7.3 fL Normal 6.3-10.7 [facility] Comment on above: Performed By: #### T SH3, LIPID #### [address] Platelets (Bld) [#/Vol] 186 10*3/uL Normal 150-450 [facility] Comment on above: Performed By: #### T SH3, LIPID #### [address] RBC (Bld) [#/Vol] 5.37 10*6/uL High 3.60-5.00 [facility] Comment on above: Performed By: #### T SH3, LIPID #### [address] WBC (Bld) [#/Vol] 8.5 10*3/uL Normal 3.8-11.6 [facility] Comment on above: Performed By: #### T SH3, LIPID #### [address] Comprehensive Metabolic Pane ceferino 08-14-2024 Albumin [Mass/Vol] 4.1 g/dL Normal 3.5-5.7 [facility] Comment on above: Performed By: #### B MP #### [address] Albumin/Globulin [Mass ratio] 1.8 {ratio} Normal [facility] Comment on above: Performed By: #### B MP #### [address] ALP [Catalytic activity/Vol] 53 U/L Normal 34-104 [facility] Comment on above: Result Comment: PERF ORMED BY: [place] [address] PATHOLOGIST INTERN ARCHITECT NORAH LEVI M.D. Performed By: #### B MP #### [address] ALT [Catalytic activity/Vol] 4 U/L Low 7-52 [facility] Comment on above: Performed By: #### B MP #### [address] Anion gap [Moles/Vol] 10.9 mmol/L Normal 6.0-15.[address] [facility] Comment on above: Performed By: #### B MP #### [address] AST [Catalytic activity/Vol] 7 U/L Low 13-39 [facility] Comment on above: Performed By: #### B MP #### [address] Bilirubin [Mass/Vol] 0.8 mg/dL Normal 0.3-1.0 [facility] Comment on above: Performed By: #### B MP #### [address] Calcium [Mass/Vol] 9.3 mg/dL Normal 8.6-10.3 [facility] Comment on above: Performed By: #### B MP #### [address] Chloride [Moles/Vol] 103 mmol/L Normal 98-107 [facility] Comment on above: Performed By: #### B MP #### [place] [address] [place] CO2 [Moles/Vol] 31.4 mmol/L High 21.0-31.0 [facility] Comment on above: Performed By: #### B MP #### [place] [address] [place] Creatinine [Mass/Vol] 0.71 mg/dL Normal 0.60-1.20 [facility] Comment on above: Performed By: #### B MP #### [place] [address] [place] GFR/1.73 sq M.predicted MDRD (S/P/Bld) [Vol rate/Area] mL/min/{1.73_m2} Normal [facility] Comment on above: Performed By: #### B MP #### [address] Globulin (S) [Mass/Vol] 2.3 g/dL Normal [facility] Comment on above: Performed By: #### B MP #### [address] Glucose [Mass/Vol] 76 mg/dL Normal 70-100 [facility] Comment on above: Result Comment: [facility] Glucose Reference Range is dependent on time and content of last meal. Glucose of more than 200 mg/dL in a nonstressed, ambulatory subject supports the diagnosis of Diabetes Mellitus. ADA recommended reference range Performed By: #### B MP #### [address] Potassium [Moles/Vol] 3.3 mmol/L Low 3.5-5.1 [facility] Comment on above: Performed By: #### B MP #### [address] Protein [Mass/Vol] 6.4 g/dL Normal 6.4-8.9 [facility] Comment on above: Performed By: #### B MP #### [address] Sodium [Moles/Vol] 142 mmol/L Normal 136-145 [facility] Comment on above: Performed By: #### B MP #### [address] Urea nitrogen [Mass/Vol] 12 mg/dL Normal 7-25 [facility] Comment on above: Performed By: #### B MP #### [address] [place] [address] [facility] Creatinine [Mass/volume] in Serum or PlasmaOrdered By: Jabari Celeste on 08-14-2024 Creatinine [Mass/Vol] Creatinine [Mass/v olume] in Serum or Plasma 0.60-1.20 [facility] Eosinophils Auto (Bld) [#/Vo l]Ordered By: Jabari Celeste on 08-14-2024 Eosinophils (Bld) [#/Vol] Automated eosinophil count 0.0-0.45 [facility] Eosinophils/100 WBC Auto (Bl d)Ordered By: Jabari Celeste on 08-14-2024 Eosinophils/100 WBC (Bld) Automated eosinophil % . [facility] Erythrocyte distribution wid th Auto (RBC) [Ratio]Ordered By: Jabari Celeste on 08-14-2024 Erythrocyte distribution width (RBC) [Ratio] Erythrocyte distribution width [Ratio] by Automated count 11.9-15.3 [facility] Globulin Calc (S) [Mass/Vol] Ordered By: Jabari Celeste on 08-14-2024 Globulin (S) [Mass/Vol] Serum globulin measurement by calculation (mass/volume) [facility] Glucose [Mass/volume] in Ser um or PlasmaOrdered By: Jabari Celeste on 08-14-2024 Glucose [Mass/Vol] Glucose [Mass/volume ] in Serum or Plasma 70-100 [facility] Comment on above: ADA recommended refe rence rangeRandom Glucose Reference Range is dependent on time and content of last meal. Glucose of more than 200 mg/dL in a nonstressed, ambulatory subject supports the diagnosis of Diabetes Mellitus. Hematocrit Auto (Bld) [Volum e fraction]Ordered By: Jabari Celeste on 08-14-2024 Hematocrit (Bld) [Volume fraction] Hematocrit [Volume Fraction] of Blood by Automated count 34.0-46.4 [facility] Hemoglobin [Mass/volume] in BloodOrdered By: Jabari Celeste on 08-14-2024 Hemoglobin (Bld) [Mass/Vol] Hemoglobin [Mass/volume] in Blood 11.8-15.4 [facility] Leukocytes [#/volume] correc steff for nucleated erythrocytes in Blood by Automated counOrdered By: Jabari Celeste on 08-14-2024 WBC corrected for nucl RBC Auto (Bld) [#/Vol] Leukocytes [#/volume] corrected for nucleated erythrocytes in Blood by Automated coun 3.8-11.6 [facility] Lipid Panelon 08-14-2024 Cholesterol [Mass/Vol] 233 mg/dL High 140-200 [facility] Comment on above: Order Comment: DEBRA MELISSAW Result Comment: Chol less than 200 mg/dl low risk Chol 201-239 mg/dl borderline risk Chol 240 mg/dl and greater high risk Performed By: #### T SH3, LIPID #### [facility] [address] [id number] [facility] Cholesterol in HDL [Mass/Vol] 58 mg/dL Normal 23-92 [facility] Comment on above: Order Comment: DEBRA MELISSAW Result Comment: HDL CHOL ATP-III CLASSIFICATION Cardiovascular Risk HDL > or equal to 60 mg/dL LOW HDL < 40 mg/dL HIGH Performed By: #### T SH3, LIPID #### [facility] [address] [id number] [facility] Cholesterol.total/Chol esterol in HDL [Mass ratio] 4.0 {ratio} Normal <5.0 [facility] Comment on above: Order Comment: DEBRA MELISSAW Performed By: #### T SH3, LIPID #### [facility] [address] [id number] [place] LDL Cholesterol,Calculated 154 mg/dL High 0-100 [facility] Comment on above: Order Comment: DEBRA MELISSAW Result Comment: LDL ATP III CLASSIFICATION LDL less than 100 mg/dL Optimal LDL 100-129 mg/dL Near or above optimal LDL 130-159 mg/dL Borderline high LDL 160-189 mg/dL High LDL greater than 189 mg/dL Very high Performed By: #### T SH3, LIPID #### [facility] [address] [id number] [place] Triglyceride w/Reflex 106 mg/dL Normal 0-149 [facility] Comment on above: Order Comment: DEBRA MELISSAW Result Comment: TRIG ATP III CLASSIFICATION TRIG less than 150 mg/dL Normal TRIG 150-199 mg/dL Borderline high TRIG 200-500 mg/dL High TRIG greater than 500 mg/dL Very high Standard traceable to the Center for Disease Conrtrol and Prevention (CDC) test method. Performed By: #### T SH3, LIPID #### [facility] [address] VLDL CHOLESTEROL 21 mg/dL Normal [facility] Comment on above: Order Comment: DEBRA OLIVASJKW Performed By: #### T SH3, LIPID #### [facility] [address] Lymphocytes Auto (Bld) [#/Vo l]Ordered By: Jabari Celeste on 08-14-2024 Lymphocytes (Bld) [#/Vol] Lymphocytes [#/volume] in Blood by Automated count 1.00-4.8 [facility] Lymphocytes/100 WBC Auto (Bl d)Ordered By: Jabari Celeste on 08-14-2024 Lymphocytes/100 WBC (Bld) Lymphocytes/100 leukocytes in Blood by Automated count . [facility] MCH Auto (RBC) [Entitic mass ]Ordered By: Jabari Celeste on 08-14-2024 MCH (RBC) [Entitic mass] MCH [Entitic mass] by Automated count 24.7-34.3 [facility] MCHC Auto (RBC) [Mass/Vol]Or dered By: Jabari Celeste on 08-14-2024 MCHC (RBC) [Mass/Vol] MCHC [Mass/volume] by Automated count Low 32.0-35.0 [facility] MCV Auto (RBC) [Entitic vol] Ordered By: Jabari Celeste on 08-14-2024 MCV (RBC) [Entitic vol] MCV [Entitic volume] by Automated count Low 80-100 [facility] Monocytes Auto (Bld) [#/Vol] Ordered By: Jabari Celeste on 08-14-2024 Monocytes (Bld) [#/Vol] Automated blood monocyte count 0.0-0.8 [facility] Monocytes/100 WBC Auto (Bld) Ordered By: Jabari Celeste on 08-14-2024 Monocytes/100 WBC (Bld) Automated monocyte % . [facility] Neutrophils Auto (Bld) [#/Vo l]Ordered By: Jabari Celeste on 08-14-2024 Neutrophils (Bld) [#/Vol] Neutrophils [#/volume] in Blood by Automated count 1.8-7.7 [facility] Neutrophils/100 WBC Auto (Bl d)Ordered By: Jabari Celeste on 08-14-2024 Neutrophils/100 WBC (Bld) Automated neutrophil % . [facility] No Panel InformationOrdered By: Jabari Celeste on 08-14-2024 Estimated GFR (CKD-EPI) > 60.0 mL/Min [facility] Creatinine Clearance (Chem N/A [facility] Nucleated erythrocytes [Pres ence] in Blood by Automated countOrdered By: Jabari Celeste on 08-14-2024 Nucleated RBC Auto Ql (Bld) Nucleated erythrocytes [Presence] in Blood by Automated count 0-0.5 [facility] Phosphate [Mass/volume] in S luz maria or PlasmaOrdered By: Adelita Bhagat on 08-14-2024 Phosphate [Mass/Vol] Phosphate [Mass/vol ume] in Serum or Plasma 2.5-4.5 [facility] Phosphoruson 08-14-2024 Phosphate [Mass/Vol] 2.8 mg/dL Normal 2.5-4.5 [facility] Comment on above: Result Comment: PERF ORMED BY: [place] [address] PATHOLOGIST INTERN ARCHITECT NORAH LEVI M.D. Performed By: #### T SH3, LIPID #### [address] Platelet mean volume Auto (B ld) [Entitic vol]Ordered By: Jabari Celeste on 08-14-2024 Platelet mean volume (Bld) [Entitic vol] Platelet mean volume [Entitic volume] in Blood by Automated count 6.3-10.7 [facility] Platelets Auto (Bld) [#/Vol] Ordered By: Jabari Celeste on 08-14-2024 Platelets (Bld) [#/Vol] Platelets [#/volume] in Blood by Automated count 150-450 [facility] Potassium [Moles/volume] in Serum or PlasmaOrdered By: Jabari Celeste on 08-14-2024 Potassium [Moles/Vol] Potassium [Moles/v olume] in Serum or Plasma Low 3.5-5.1 [facility] Protein [Mass/volume] in Ser um or PlasmaOrdered By: Jabari Celeste on 08-14-2024 Protein [Mass/Vol] Protein [Mass/volume ] in Serum or Plasma 6.4-8.9 [facility] RBC Auto (Bld) [#/Vol]Ordere d By: Jabari Celeste on 08-14-2024 RBC (Bld) [#/Vol] Erythrocytes [#/volu me] in Blood by Automated count High 3.60-5.00 [facility] Serum or plasma albumin/glob ulin mass ratioOrdered By: Jabari Celeste on 08-14-2024 Albumin/Globulin [Mass ratio] Serum or plasma albumin/globulin mass ratio [facility] Serum or plasma anion gap de terminationOrdered By: Jabari Celeste on 08-14-2024 Anion gap [Moles/Vol] Serum or plasma an ion gap determination 6.0-15.0 [facility] Serum or plasma total choles terol/high density lipoprotein (HDL) cholesterol mass ratOrdered By: Jabari Celeste on 08-14-2024 Cholesterol.total/Chol esterol in HDL [Mass ratio] Serum or plasma total cholesterol/high density lipoprotein (HDL) cholesterol mass rat <5.0 [facility] Sodium [Moles/volume] in Ser um or PlasmaOrdered By: Jabari Celeste on 08-14-2024 Sodium [Moles/Vol] Sodium [Moles/volume ] in Serum or Plasma 136-145 [facility] Thyroid Stimulating Hormoneo n 08-14-2024 TSH Qn 1.29 m[IU]/L Normal 0.45-5.33 [facility] Comment on above: Order Comment: DEBRA CAMERON Result Comment: PERF ORMED BY: [place] [address] PATHOLOGIST INTERN ARCHITECT NORAH LEVI M.D. Performed By: #### T SH3, LIPID #### [address] Thyrotropin [Units/volume] i n Serum or PlasmaOrdered By: Jabari Celeste on 08-14-2024 TSH Qn Thyrotropin [Units/v olume] in Serum or Plasma 0.45-5.33 [facility] Triglyceride [Mass/volume] i n Serum or PlasmaOrdered By: Jabari Celeste on 08-14-2024 Triglyceride [Mass/Vol] Triglyceride [Mass/volume] in Serum or Plasma 0-149 [facility] Comment on above: TRIG ATP III CLASSIF ICATIONTRIG less than 150 mg/dL NormalTRIG 150-199 mg/dL Borderline highTRIG 200-500 mg/dL High TRIG greater than 500 mg/dL Very highStandard traceable to the Center for Disease Conrtrol and Prevention (CDC) test method. Urea nitrogen [Mass/volume] in Serum or PlasmaOrdered By: Jabari Celeste on 08-14-2024 Urea nitrogen [Mass/Vol] Urea nitrogen [Mass/volume] in Serum or Plasma 7-25 [facility] WBC Auto (Bld) [#/Vol]Ordere d By: Jabari Celeste on 08-14-2024 WBC (Bld) [#/Vol] Leukocytes [#/volume ] in Blood by Automated count 3.8-11.6 [facility] ANES POSTPROC EVALon 024 ANES POSTPROC EVAL HNO ID: [id number] Author: MAT CARREON MD Service: ? Author Type: Anesthesiologist Type: Anesthesia Postprocedure Evaluation Filed: 07/04/2024 13:37 Note Text: POST ANESTHESIA EVALUATION NOTE : 1975 Procedure Summary Date: 07/04/24 Room / Location: [place] [address] / [facility] Anesthesia Start: [...] with this procedure. Documented by Hayder Talbot APRN.PHLEBOTOMY MANAGER 07/04/2024 12:03 PM EST SIGNATURE: Mat Carreon MD PATIENT NAME: Flash Irving DATE: July 04, 2024 TIME: 1:37 PM CSN: [id number] Normal [facility] ANES PRE-OPon 07-04-2024 ANES PRE-OP HNO ID: [id number] Author: MAT CARREON MD Service: ? Author [...] INTRAOCULAR IMPLANT (FOR TORIC IOL) (Right) Location: [place] [address] / [facility] Surgeons: Shubham [...] and consent discussed: yes. Patient / Responsible Republican agrees to proceed: yes Patient / Surrogate [...] July 04, 2024 TIME: 11:38 AM CSN: [id number] Normal [facility] OPERATIVE NOon 07-04-2024 OPERATIVE NO HNO ID: [id number] Author: SHUBHAM KNOX MD Service: Ophthalmology Author Type: Physician Type: Operative Report Filed: 07/04/2024 12:02 Note Text: OPERATIVE REPORT Surgery/Procedure Date: July 04, 2024 Name: Flash Irving [facility] #: [id number] Age: [age] year old Surgeon(s)/Proceduralist(s) and Solid Waste Engineer(s): Shubham Knox M.D. Anesthesia: Monitored Anesthesia Care [...] Implant Name Type Inv. Item Serial No. Heel Seam Rubber Lot No. LRB No. Used Action Model No. CCW0T3.160 [employer] - [id number] Intraocular Lens [id number] [employer] [id number] [employer] Right 1 Implanted [id number] [...] Drains: none Complications: none Shubham Knox M.D. [facility] ANES POSTPROC EVALon 06-20-2 024 ANES POSTPROC EVAL HNO ID: [id number] Author: LAURENCE FROST MD Service: ? Author Type: Anesthesiologist Type: Anesthesia Postprocedure Evaluation Filed: 06/20/2024 16:22 Note Text: POST ANESTHESIA EVALUATION NOTE : 1975 Procedure Summary Date: 06/20/24 Room / Location: [address] Anesthesia Start: 1543 Anesthesia Stop: 1601 [...] June 20, 2024 TIME: 4:22 PM CSN: [id number] Normal [facility] ANES PRE-OPon 06-20-2024 ANES PRE-OP HNO ID: [id number] Author: LAURENCE FROST MD Service: ? Author Type: Anesthesiologist Type: Anesthesia Preprocedure Evaluation Filed: 06/20/2024 15:35 Note Text: ANESTHESIOLOGY DAY OF SURGERY NOTE : 1975 Procedure Information Date/Time: 06/20/24 1621 Procedures: PHACOEMULSIFICATION CATARACT IMPLANT INTRAOCULAR LENS W/O ENDOSCOPIC CYCLOPHOTOCOAGULATION (Left: Eye) OPHTHALMIC BIOMETRY BY PARTIAL COHERENCE INTERFEROMETRY W/INTRAOCULAR LENS POWER CALCULATION (Left: Eye) Location: [place] [address] / [facility] Surgeons: Shubham [...] and consent discussed: yes. Patient / Responsible Republican agrees to proceed: yes Patient / Surrogate [...] June 20, 2024 TIME: 3:16 PM CSN: [id number] Normal [facility] OPERATIVE NOon 06-20-2024 OPERATIVE NO HNO ID: [id number] Author: SHUBHAM KNOX MD Service: Ophthalmology Author Type: Physician Type: Operative Report Filed: 06/20/2024 15:57 Note Text: OPERATIVE REPORT Surgery/Procedure Date: June 20, 2024 Name: Flash Irving [facility] #: [id number] Age: [age] year old Surgeon(s)/Proceduralist(s) and Solid Waste Engineer(s): Shubham Knox M.D. and Alexis Proctor M.D. [...] Implant Name Type Inv. Item Serial No. Heel Seam Rubber Lot No. LRB No. Used Action Model No. CC60WF.155 [employer] - [id number] Intraocular Lens [id number].155 [employer] [id number] [employer] SURGICAL Left 1 Implanted [id number].155 I have [...] none Complications: none Shubham Knox M.D. Normal [facility] CNOVon 06-14-2024 CNOV Office Visit (IMOPMN ) MARIA FERNANDAFLASH Carlo ([id number]) 1975 F Date Time Provider Department 06/14/24 11:00 AM BELKIS ARANDA [facility] During your visit today, we recorded the [...] fevers. Neuro: No history of TIA's, stroke, TOGGLE PRESS OPERATOR tumor, impaired sensorium, hemiplegia, paraplegia or quadriplegia. No neurological symptoms or problems. Respiratory: COPD, Hospitalized for COPD, ILD, pulmonary fibrosis, 5 liters O2 continuous, Chronic hypoxemic respiratory failure. Denies orthopnea Cardiovascular: No history of HTN requiring medication, no history of angina, CHF, [place], cardiac surgery or stents. Denies rest pain, [...] dialysis. No history of symptoms or problems. LEAD DRIVER: No vaginal bleeding due to menopause and no abnormal vaginal discharge., LMP: 06/13/2024 Endocrine: No history of diabetes. Has not taken steroids within the past 30 days. No history of endocrinological symptoms or problems. Hematology: No history of bleeding or clotting (more content not included)... Normal [facility] HISTORY PHYSICALon HISTORY PHYSICAL HNO ID: [id number] Author: BELKIS ARANDA PA-C Service: ? Author Type: Physician Solid Waste Engineer Type: H&P Filed: 06/21/2024 14:43 Note Text: [...] fevers. Neuro: No history of TIA's, stroke, TOGGLE PRESS OPERATOR tumor, impaired sensorium, hemiplegia, paraplegia or quadriplegia. No neurological symptoms or problems. Respiratory: COPD, Hospitalized for COPD, ILD, pulmonary fibrosis, 5 liters O2 continuous, Chronic hypoxemic respiratory failure. Denies orthopnea Cardiovascular: No history of HTN requiring medication, no history of angina, CHF, [place], cardiac surgery or stents. Denies rest pain, [...] dialysis. No history of symptoms or problems. LEAD DRIVER: No vaginal bleeding due to menopause and [...] no rash, (more content not included)... Normal [facility] Alanine aminotransferase [En zymatic activity/volume] in Serum or PlasmaOrdered By: Letitia Cruz on 05-12-2024 ALT [Catalytic activity/Vol] 24 U/L Normal [facility] Comment on above: Performed By: #### T SH3, LIPID #### [facility] [address] [place] [address] [place] ALT [Catalytic activity/Vol] Alanine aminotransferase [Enzymatic activity/volume] in Serum or Plasma [facility] Albumin [Mass/volume] in Ser um or Plasma by Bromocresol green (BCG) dye binding methoOrdered By: Letitia Cruz on 05-12-2024 Albumin BCG dye [Mass/Vol] 3.2 g/dL Low 3.5-5.7 [facility] Albumin BCG dye [Mass/Vol] Albumin [Mass/volume] in Serum or Plasma by Bromocresol green (BCG) dye binding metho Low 3.5-5.7 [facility] Alkaline phosphatase [Enzyma tic activity/volume] in Serum or PlasmaOrdered By: Letitia Cruz on 05-12-2024 ALP [Catalytic activity/Vol] 37 U/L Normal [facility] Comment on above: Performed By: #### T SH3, LIPID #### [facility] [address] [place] [address] [place] ALP [Catalytic activity/Vol] Alkaline phosphatase [Enzymatic activity/volume] in Serum or Plasma [facility] Aspartate aminotransferase [ Enzymatic activity/volume] in Serum or PlasmaOrdered By: Letitia Cruz on 05-12-2024 AST [Catalytic activity/Vol] 9 U/L Low [facility] Comment on above: Performed By: #### T SH3, LIPID #### [facility] [address] [place] [address] [place] AST [Catalytic activity/Vol] Aspartate aminotransferase [Enzymatic activity/volume] in Serum or Plasma Low 13-39 [facility] Basic Metabolic Panelon 04-17 Creatinine Clr Calc Pharmacy 110.95 Normal [facility] Comment on above: Result Comment: PERF ORMED BY: [place] [address] PATHOLOGIST INTERN ARCHITECT LIVAN GREEN M.D. Performed By: #### T SH3, LIPID #### [address] GFR/1.73 sq M.predicted MDRD (S/P/Bld) [Vol rate/Area] mL/min/{1.73_m2} Normal [facility] Comment on above: Performed By: #### T SH3, LIPID #### [address] Bilirubin.direct [Mass/volum e] in Serum or PlasmaOrdered By: Letitia Cruz on 05-12-2024 Bilirubin.direct [Mass/Vol] 0.20 mg/dL High 0.03-0.18 [facility] Bilirubin.direct [Mass/Vol] Bilirubin.direct [Mass/volume] in Serum or Plasma High 0.03-0.18 [facility] Bilirubin.total [Mass/volume ] in Serum or PlasmaOrdered By: Letitia Cruz on 05-12-2024 Bilirubin [Mass/Vol] 0.8 mg/dL Normal 0.3-1.0 [facility] Comment on above: Performed By: #### T SH3, LIPID #### [address] Bilirubin [Mass/Vol] Bilirubin.total [Mass/volume] in Serum or Plasma 0.3-1.0 [facility] Calcium [Mass/volume] in Ser um or PlasmaOrdered By: Chilo Santos on 05-12-2024 Calcium [Mass/Vol] 8.3 mg/dL Low 8.6-10.3 [facility] Comment on above: Performed By: #### T SH3, LIPID #### [address] Calcium [Mass/Vol] Calcium [Mass/volume ] in Serum or Plasma Low 8.6-10.3 [facility] Carbon dioxide, total [Moles /volume] in Serum or PlasmaOrdered By: Chilo Santos on 05-12-2024 CO2 [Moles/Vol] 27.7 mmol/L Normal 21.0-31.0 [facility] Comment on above: Performed By: #### T SH3, LIPID #### [facility] [address] CO2 [Moles/Vol] Carbon dioxide, tota l [Moles/volume] in Serum or Plasma 21.0-31.0 [facility] Chloride [Moles/volume] in S luz maria or PlasmaOrdered By: Chilo Santos on 05-12-2024 Chloride [Moles/Vol] 99 mmol/L Normal 98-107 [facility] Comment on above: Performed By: #### T SH3, LIPID #### [facility] [address] Chloride [Moles/Vol] Chloride [Moles/vol ume] in Serum or Plasma 98-107 [facility] Creatinine [Mass/volume] in Serum or PlasmaOrdered By: Chilo Santos on 05-12-2024 Creatinine [Mass/Vol] 0.58 mg/dL Low 0.60-1.20 [facility] Comment on above: Performed By: #### T SH3, LIPID #### [facility] [address] Creatinine [Mass/Vol] Creatinine [Mass/v olume] in Serum or Plasma Low 0.60-1.20 [facility] Globulin Calc (S) [Mass/Vol] Ordered By: Letitia Cruz on 05-12-2024 Globulin (S) [Mass/Vol] Serum globulin measurement by calculation (mass/volume) [facility] Glucose [Mass/volume] in Ser um or PlasmaOrdered By: Chilo Santos on 05-12-2024 Glucose [Mass/Vol] 123 mg/dL High 70-100 [facility] Comment on above: ADA recommended refe rence rangeRandom Glucose Reference Range is dependent on time and content of last meal. Glucose of more than 200 mg/dL in a nonstressed, ambulatory subject supports the diagnosis of Diabetes Mellitus. Result Comment: [facility] om Glucose Reference Range is dependent on time and content of last meal. Glucose of more than 200 mg/dL in a nonstressed, ambulatory subject supports the diagnosis of Diabetes Mellitus. ADA recommended reference range Performed By: #### T SH3, LIPID #### [facility] [address] Glucose [Mass/Vol] Glucose [Mass/volume ] in Serum or Plasma High 70-100 [facility] Comment on above: ADA recommended refe rence rangeRandom Glucose Reference Range is dependent on time and content of last meal. Glucose of more than 200 mg/dL in a nonstressed, ambulatory subject supports the diagnosis of Diabetes Mellitus. Hepatic Panelon 05-12-2024 Albumin [Mass/Vol] 3.2 g/dL Low 3.5-5.7 [facility] Comment on above: Performed By: #### T SH3, LIPID #### [address] Bilirubin,Indirect 0.6 mg/dL Normal [facility] Comment on above: Performed By: #### T SH3, LIPID #### [address] Bilirubin.indirect [Mass/Vol] 0.20 mg/dL High 0.03-0.18 [facility] Comment on above: Performed By: #### T SH3, LIPID #### [address] No Panel InformationOrdered By: Chilo Santos on 05-12-2024 Estimated GFR (CKD-EPI) > 60.0 mL/Min [facility] Creatinine Clearance (Chem 110.95 [facility] Potassium [Moles/volume] in Serum or PlasmaOrdered By: Chilo Santos on 05-12-2024 Potassium [Moles/Vol] 4.2 mmol/L Normal 3.5-5.1 [facility] Comment on above: Performed By: #### T SH3, LIPID #### [address] Potassium [Moles/Vol] Potassium [Moles/v olume] in Serum or Plasma 3.5-5.1 [facility] Protein [Mass/volume] in Ser um or PlasmaOrdered By: Letitia Cruz on 05-12-2024 Protein [Mass/Vol] 5.5 g/dL Low 6.4-8.9 [facility] Comment on above: Performed By: #### T SH3, LIPID #### [facility] [address] [place] [address] Protein [Mass/Vol] Protein [Mass/volume ] in Serum or Plasma Low 6.4-8.9 [facility] Serum globulin measurement b y calculation (mass/volume)Ordered By: Letitia Cruz on 05-12-2024 Globulin (S) [Mass/Vol] 2.3 g/dL Normal [facility] Comment on above: Performed By: #### T SH3, LIPID #### [facility] [address] [place] [address] Serum or plasma albumin/glob ulin mass ratioOrdered By: Letitia Cruz on 05-12-2024 Albumin/Globulin [Mass ratio] 1.4 {ratio} [facility] Comment on above: Performed By: #### T SH3, LIPID #### [facility] [address] [place] [address] Albumin/Globulin [Mass ratio] Serum or plasma albumin/globulin mass ratio [facility] Serum or plasma anion gap de terminationOrdered By: Chilo Santos on 05-12-2024 Anion gap [Moles/Vol] 11.5 mmol/L Normal 6.0-15.0 [facility] Comment on above: Performed By: #### T SH3, LIPID #### [facility] [address] [place] [address] Anion gap [Moles/Vol] Serum or plasma an ion gap determination 6.0-15.0 [facility] Serum or plasma non-glucuron idated bilirubin measurement (mass/volume)Ordered By: Letitia Cruz on 05-12-2024 Bilirubin.indirect [Mass/Vol] 0.6 mg/dL [facility] Bilirubin.indirect [Mass/Vol] Serum or plasma non-glucuronidated bilirubin measurement (mass/volume) [facility] Sodium [Moles/volume] in Ser um or PlasmaOrdered By: Chilo Santos on 05-12-2024 Sodium [Moles/Vol] 134 mmol/L Low 136-145 [facility] Comment on above: Performed By: #### T SH3, LIPID #### [address] Sodium [Moles/Vol] Sodium [Moles/volume ] in Serum or Plasma Low 136-145 [facility] Urea nitrogen [Mass/volume] in Serum or PlasmaOrdered By: Chilo Santos on 05-12-2024 Urea nitrogen [Mass/Vol] 19 mg/dL Normal 03-09 [facility] Comment on above: Performed By: #### T SH3, LIPID #### [address] Urea nitrogen [Mass/Vol] Urea nitrogen [Mass/volume] in Serum or Plasma 03-09 [facility] Automated basophil %Ordered By: Chilo Santos on 05-11-2024 Basophils/100 WBC (Bld) 0.1 % Normal . [facility] Comment on above: Performed By: #### C DT #### [address] Automated basophil countOrde red By: Chilo Santos on 05-11-2024 Basophils (Bld) [#/Vol] 0.0 10*3/uL Normal 0.0-0.2 [facility] Comment on above: Performed By: #### C DT #### [address] Automated blood monocyte cou ntOrdered By: Chilo Santos on 05-11-2024 Monocytes (Bld) [#/Vol] 0.8 10*3/uL Normal 0.0-0.8 [facility] Comment on above: Performed By: #### C DT #### [address] Automated eosinophil %Ordere d By: Chilo Santos on 05-11-2024 Eosinophils/100 WBC (Bld) 0.0 % Normal . [facility] Comment on above: Performed By: #### C DT #### [address] Automated eosinophil countOr dered By: Chilo Santos on 05-11-2024 Eosinophils (Bld) [#/Vol] 0.0 10*3/uL Normal 0.0-0.45 [facility] Comment on above: Performed By: #### C DT #### [address] Automated monocyte %Ordered By: Chilo Santos on 05-11-2024 Monocytes/100 WBC (Bld) 5.9 % Normal . [facility] Comment on above: Performed By: #### C DT #### [address] Automated neutrophil %Ordere d By: Chilo Santos on 05-11-2024 Neutrophils/100 WBC (Bld) 90.6 % Normal . [facility] Comment on above: Performed By: #### C DT #### [address] Basic Metabolic Panelon 04-17 Anion gap [Moles/Vol] 12.0 mmol/L Normal 6.0-15.0 [facility] Comment on above: Performed By: #### C DT #### [address] Calcium [Mass/Vol] 8.4 mg/dL Low 8.6-10.3 [facility] Comment on above: Performed By: #### C DT #### [address] Chloride [Moles/Vol] 97 mmol/L Low 98-107 [facility] Comment on above: Performed By: #### C DT #### [address] CO2 [Moles/Vol] 29.5 mmol/L Normal 21.0-31.0 [facility] Comment on above: Performed By: #### C DT #### [address] Creatinine [Mass/Vol] 0.69 mg/dL Normal 0.60-1.20 [facility] Comment on above: Performed By: #### C DT #### [place] [address] [place] Creatinine Clr Calc Pharmacy 92.27 Normal [facility] Comment on above: Result Comment: PERF ORMED BY: [place] [address] PATHOLOGIST INTERN ARCHITECT LIVAN GREEN M.D. Performed By: #### C DT #### [place] [address] [place] GFR/1.73 sq M.predicted MDRD (S/P/Bld) [Vol rate/Area] mL/min/{1.73_m2} Normal [facility] Comment on above: Performed By: #### C DT #### [address] Glucose [Mass/Vol] 129 mg/dL High 70-100 [facility] Comment on above: Result Comment: [facility] Glucose Reference Range is dependent on time and content of last meal. Glucose of more than 200 mg/dL in a nonstressed, ambulatory subject supports the diagnosis of Diabetes Mellitus. ADA recommended reference range Performed By: #### C DT #### [address] Potassium [Moles/Vol] 3.5 mmol/L Normal 3.5-5.1 [facility] Comment on above: Performed By: #### C DT #### [place] [address] [place] Sodium [Moles/Vol] 135 mmol/L Low 136-145 [facility] Comment on above: Performed By: #### C DT #### [address] Urea nitrogen [Mass/Vol] 20 mg/dL Normal 7-25 [facility] Comment on above: Performed By: #### C DT #### [place] [id number] [place] Basophils Auto (Bld) [#/Vol] Ordered By: Chilo Santos on 05-11-2024 Basophils (Bld) [#/Vol] Automated basophil count 0.0-0.2 [facility] Basophils/100 WBC Auto (Bld) Ordered By: Chilo Santso on 05-11-2024 Basophils/100 WBC (Bld) Automated basophil % . [facility] Eosinophils Auto (Bld) [#/Vo l]Ordered By: Chilo Santos on 05-11-2024 Eosinophils (Bld) [#/Vol] Automated eosinophil count 0.0-0.45 [facility] Eosinophils/100 WBC Auto (Bl d)Ordered By: Chilo Santos on 05-11-2024 Eosinophils/100 WBC (Bld) Automated eosinophil % . [facility] Erythrocyte distribution wid th Auto (RBC) [Ratio]Ordered By: Chilo Santos on 05-11-2024 Erythrocyte distribution width (RBC) [Ratio] Erythrocyte distribution width [Ratio] by Automated count 11.9-15.3 [facility] Erythrocyte distribution wid th [Ratio] by Automated countOrdered By: Chilo Santos on 05-11-2024 Erythrocyte distribution width (RBC) [Ratio] 14.7 % Normal 11.9-15.3 [facility] Comment on above: Performed By: #### C DT #### [facility] [address] [place] [address] Erythrocyte morphology findi ng [Identifier] in BloodOrdered By: Chilo Santos on 05-11-2024 RBC morphology finding Nom (Bld) RBC morphology [facility] Erythrocytes [#/volume] in B lood by Automated countOrdered By: Chilo Santos on 05-11-2024 RBC (Bld) [#/Vol] 5.55 10*6/uL High 3.60-5.00 [facility] Comment on above: Performed By: #### C DT #### [facility] [address] [place] [address] Hematocrit Auto (Bld) [Volum e fraction]Ordered By: Chilo Santos on 05-11-2024 Hematocrit (Bld) [Volume fraction] Hematocrit [Volume Fraction] of Blood by Automated count 34.0-46.4 [facility] Hematocrit [Volume Fraction] of Blood by Automated countOrdered By: Chilo Santos on 05-11-2024 Hematocrit (Bld) [Volume fraction] 43.2 % Normal 34.0-46.4 [facility] Comment on above: Performed By: #### C DT #### [address] Hemoglobin [Mass/volume] in BloodOrdered By: Chilo Santos on 05-11-2024 Hemoglobin (Bld) [Mass/Vol] 14.0 g/dL Normal 11.8-15.4 [facility] Comment on above: Performed By: #### C DT #### [address] Hemoglobin (Bld) [Mass/Vol] Hemoglobin [Mass/volume] in Blood 11.8-15.4 [facility] Leukocytes [#/volume] correc steff for nucleated erythrocytes in Blood by Automated counOrdered By: Chilo Santos on 05-11-2024 WBC corrected for nucl RBC Auto (Bld) [#/Vol] 13.0 10*3/uL [facility] 3.8-11.6 [facility] WBC corrected for nucl RBC Auto (Bld) [#/Vol] Leukocytes [#/volume] corrected for nucleated erythrocytes in Blood by Automated coun High 3.8-11.6 [facility] Leukocytes [#/volume] in Blo od by Automated countOrdered By: Chilo Santos on 05-11-2024 WBC (Bld) [#/Vol] 13.0 10*3/uL [facility] 3.8-11.6 [facility] Comment on above: Performed By: #### C DT #### [place] [address] [place] Lymphocytes Auto (Bld) [#/Vo l]Ordered By: Chilo Santos on 05-11-2024 Lymphocytes (Bld) [#/Vol] Lymphocytes [#/volume] in Blood by Automated count Low 1.00-4.8 [facility] Lymphocytes [#/volume] in Bl ood by Automated countOrdered By: Chilo Santos on 05-11-2024 Lymphocytes (Bld) [#/Vol] 0.4 10*3/uL Low 1.00-4.8 [facility] Comment on above: Performed By: #### C DT #### [address] Lymphocytes/100 WBC Auto (Bl d)Ordered By: Chilo Santos on 05-11-2024 Lymphocytes/100 WBC (Bld) Lymphocytes/100 leukocytes in Blood by Automated count . [facility] Lymphocytes/100 leukocytes i n Blood by Automated countOrdered By: Chilo Santos on 05-11-2024 Lymphocytes/100 WBC (Bld) 3.4 % Normal . [facility] Comment on above: Performed By: #### C DT #### [address] MCH Auto (RBC) [Entitic mass ]Ordered By: Chilo Santos on 05-11-2024 MCH (RBC) [Entitic mass] MCH [Entitic mass] by Automated count 24.7-34.3 [facility] MCH [Entitic mass] by Automa stfef countOrdered By: Chilo Santos on 05-11-2024 MCH (RBC) [Entitic mass] 25.3 pg Normal 24.7-34.3 [facility] Comment on above: Performed By: #### C DT #### [address] MCHC Auto (RBC) [Mass/Vol]Or dered By: Chilo Santos on 05-11-2024 MCHC (RBC) [Mass/Vol] 32.5 g/dL 32.0-35.0 [facility] MCHC (RBC) [Mass/Vol] MCHC [Mass/volume] by Automated count 32.0-35.0 [facility] MCV Auto (RBC) [Entitic vol] Ordered By: Chilo Santos on 05-11-2024 MCV (RBC) [Entitic vol] MCV [Entitic volume] by Automated count Low 80-100 [facility] MCV [Entitic volume] by Auto mated countOrdered By: Chilo Santos on 05-11-2024 MCV (RBC) [Entitic vol] 77.8 fL Low 80-100 [facility] Comment on above: Performed By: #### C DT #### [facility] [address] [place] [address] [place] Microcytes LM Ql (Bld)Ordere d By: Chilo Santos on 05-11-2024 Microcytes Ql (Bld) Moderate [facility] Microcytes Ql (Bld) Microcytes [Presence ] in Blood by Light microscopy [facility] Monocytes Auto (Bld) [#/Vol] Ordered By: Chilo Santos on 05-11-2024 Monocytes (Bld) [#/Vol] Automated blood monocyte count 0.0-0.8 [facility] Monocytes/100 WBC Auto (Bld) Ordered By: Chilo Santos on 05-11-2024 Monocytes/100 WBC (Bld) Automated monocyte % . [facility] Neutrophils Auto (Bld) [#/Vo l]Ordered By: Chilo Santos on 05-11-2024 Neutrophils (Bld) [#/Vol] Neutrophils [#/volume] in Blood by Automated count High 1.8-7.7 [facility] Neutrophils [#/volume] in Bl ood by Automated countOrdered By: Chilo Santos on 05-11-2024 Neutrophils (Bld) [#/Vol] 11.8 10*3/uL High 1.8-7.7 [facility] Comment on above: Performed By: #### C DT #### [facility] [address] [place] [address] [place] Neutrophils/100 WBC Auto (Bl d)Ordered By: Chilo Santos on 05-11-2024 Neutrophils/100 WBC (Bld) Automated neutrophil % . [facility] Nucleated erythrocytes [Pres ence] in Blood by Automated countOrdered By: Chilo Santos on 05-11-2024 Nucleated RBC Auto Ql (Bld) 0.0 /100{WBC} 0-0.5 [facility] Nucleated RBC Auto Ql (Bld) Nucleated erythrocytes [Presence] in Blood by Automated count 0-0.5 [facility] Ovalocyte detectionOrdered B y: Chilo Santos on 05-11-2024 Ovalocytes LM Ql (Bld) [facility] Ovalocytes [Presence] in Blo od by Light microscopyOrdered By: Chilo Santos on 05-11-2024 Ovalocytes LM Ql (Bld) Ovalocyte detection [facility] Platelet adequacy [Presence] in Blood by Light microscopyOrdered By: Chilo Santos on 05-11-2024 Platelets LM Ql (Bld) Normal Normal [facility] Platelets LM Ql (Bld) Platelet adequacy [Presence] in Blood by Light microscopy Normal [facility] Platelet mean volume Auto (B ld) [Entitic vol]Ordered By: Chilo Santos on 05-11-2024 Platelet mean volume (Bld) [Entitic vol] Platelet mean volume [Entitic volume] in Blood by Automated count 6.3-10.7 [facility] Platelet mean volume [Entiti c volume] in Blood by Automated countOrdered By: Chilo Santos on 05-11-2024 Platelet mean volume (Bld) [Entitic vol] 7.2 fL Normal 6.3-10.7 [facility] Comment on above: Performed By: #### C DT #### [address] Platelet morphology finding [Identifier] in BloodOrdered By: Chilo Santos on 05-11-2024 Platelet morphology finding Nom (Bld) Normal Normal [facility] Platelet morphology finding Nom (Bld) Platelet morphology finding [Identifier] in Blood Normal [facility] Platelets Auto (Bld) [#/Vol] Ordered By: Chilo Santos on 05-11-2024 Platelets (Bld) [#/Vol] Platelets [#/volume] in Blood by Automated count 150-450 [facility] Platelets [#/volume] in Bloo d by Automated countOrdered By: Chilo Santos on 05-11-2024 Platelets (Bld) [#/Vol] 162 10*3/uL Normal 150-450 [facility] Comment on above: Performed By: #### C DT #### [address] RBC Auto (Bld) [#/Vol]Ordere d By: Chilo Santos on 05-11-2024 RBC (Bld) [#/Vol] Erythrocytes [#/volu me] in Blood by Automated count High 3.60-5.00 [facility] RBC morphologyOrdered By: Daphney Santos on 05-11-2024 RBC morphology finding Nom (Bld) N/A [facility] Scan and CBCon 05-11-2024 Mean Corpuscular HGB Conc 32.5 g/dL Normal 32.0-35.0 [facility] Comment on above: Performed By: #### C DT #### [address] Microcytosis Moderate Normal [facility] Comment on above: Performed By: #### C DT #### [address] NRBC% 0.0 /100{WBC} Normal 0-0.5 [facility] Comment on above: Performed By: #### C DT #### [address] Ovalocytes Slight Normal [facility] Comment on above: Performed By: #### C DT #### [address] Platelet Estimate Normal Normal Normal [facility] Comment on above: Performed By: #### C DT #### [address] Platelet Morphology Normal Normal Normal [facility] Comment on above: Result Comment: PERF ORMED BY: [place] [address] PATHOLOGIST INTERN ARCHITECT LIVAN GREEN M.D. Performed By: #### C DT #### [address] WBC Auto (Bld) [#/Vol]Ordere d By: Chilo Santos on 05-11-2024 WBC (Bld) [#/Vol] Leukocytes [#/volume ] in Blood by Automated count High 3.8-11.6 [facility] Basic Metabolic Panelon 04-17 Anion gap [Moles/Vol] 12.8 mmol/L Normal 6.0-15.0 [facility] e [facility] Comment on above: Performed By: #### Ayaka G, BMP #### [place] [address] [place] Calcium [Mass/Vol] 8.6 mg/dL Normal 8.6-10.3 [facility] Comment on above: Performed By: #### Ayaka Mast, BMP #### [address] Chloride [Moles/Vol] 102 mmol/L Normal 98-107 [facility] Comment on above: Performed By: #### Ayaka Mast, BMP #### [address] CO2 [Moles/Vol] 25.2 mmol/L Normal 21.0-31.0 [facility] Comment on above: Performed By: #### Ayaka G, BMP #### [place] [address] [place] Creatinine [Mass/Vol] 0.74 mg/dL Normal 0.60-1.20 [facility] Comment on above: Performed By: #### Ayaka G, BMP #### [place] [id number] [place] Creatinine Clr Calc Pharmacy 85.51 Normal [facility] Comment on above: Performed By: #### Ayaka G, BMP #### [place] [id number] [place] GFR/1.73 sq M.predicted MDRD (S/P/Bld) [Vol rate/Area] mL/min/{1.73_m2} Normal [facility] Comment on above: Performed By: #### Ayaka G, BMP #### [address] Glucose [Mass/Vol] 137 mg/dL High 70-100 [facility] Comment on above: Result Comment: [facility] Glucose Reference Range is dependent on time and content of last meal. Glucose of more than 200 mg/dL in a nonstressed, ambulatory subject supports the diagnosis of Diabetes Mellitus. ADA recommended reference range Performed By: #### M G, BMP #### [address] Potassium [Moles/Vol] 4.0 mmol/L Normal 3.5-5.1 [facility] Comment on above: Performed By: #### M G, BMP #### [address] Sodium [Moles/Vol] 136 mmol/L Normal 136-145 [facility] Comment on above: Performed By: #### M G, BMP #### [address] Urea nitrogen [Mass/Vol] 23 mg/dL Normal 7-25 [facility] Comment on above: Performed By: #### M G, BMP #### [address] Magnesium [Mass/volume] in S luz maria or PlasmaOrdered By: Chilo Santos on 05-10-2024 Magnesium [Mass/Vol] 2.3 mg/dL Normal 1.9-2.7 [facility] Comment on above: Result Comment: PERF ORMED BY: [place] [address] PATHOLOGIST INTERN ARCHITECT LIVAN GREEN M.D. Performed By: #### M G, BMP #### [facility] [address] [place] [address] [place] Magnesium [Mass/Vol] Magnesium [Mass/vol ume] in Serum or Plasma 1.9-2.7 [facility] Basic Metabolic Panelon 04-17 Anion gap [Moles/Vol] 12.3 mmol/L Normal 6.0-15.0 [facility] e [facility] Comment on above: Performed By: #### C DT #### [address] Calcium [Mass/Vol] 8.2 mg/dL Low 8.6-10.3 [facility] Comment on above: Performed By: #### C DT #### [address] Chloride [Moles/Vol] 100 mmol/L Normal 98-107 [facility] Comment on above: Performed By: #### C DT #### [address] CO2 [Moles/Vol] 25.1 mmol/L Normal 21.0-31.0 [facility] Comment on above: Performed By: #### C DT #### [address] Creatinine [Mass/Vol] 0.68 mg/dL Normal 0.60-1.20 [facility] Comment on above: Performed By: #### C DT #### [address] Creatinine Clr Calc Pharmacy 93.31 Normal [facility] Comment on above: Result Comment: PERF ORMED BY: [place] [address] PATHOLOGIST INTERN ARCHITECT LIVAN GREEN M.D. Performed By: #### C DT #### [address] GFR/1.73 sq M.predicted MDRD (S/P/Bld) [Vol rate/Area] mL/min/{1.73_m2} Normal [facility] Comment on above: Performed By: #### C DT #### [address] Glucose [Mass/Vol] 140 mg/dL Significant change up 70-100 [facility] Comment on above: Result Comment: [facility] Glucose Reference Range is dependent on time and content of last meal. Glucose of more than 200 mg/dL in a nonstressed, ambulatory subject supports the diagnosis of Diabetes Mellitus. ADA recommended reference range Performed By: #### C DT #### [address] Potassium [Moles/Vol] 3.4 mmol/L Low 3.5-5.1 [facility] Comment on above: Performed By: #### C DT #### [address] Sodium [Moles/Vol] 134 mmol/L Low 136-145 [facility] Comment on above: Performed By: #### C DT #### [address] Urea nitrogen [Mass/Vol] 18 mg/dL Normal 7-25 [facility] Comment on above: Performed By: #### C DT #### [address] Complete Blood Count Auto Di ffon 05-09-2024 Basophils (Bld) [#/Vol] 0.0 10*3/uL Normal 0.0-0.2 [facility] Comment on above: Result Comment: PERF ORMED BY: [place] [address] PATHOLOGIST INTERN ARCHITECT LIVAN GREEN M.D. Performed By: #### C DT #### [address] Basophils/100 WBC (Bld) 0.0 % Normal . [facility] Comment on above: Performed By: #### C DT #### [address] Eosinophils (Bld) [#/Vol] 0.0 10*3/uL Normal 0.0-0.45 [facility] Comment on above: Performed By: #### C DT #### [place] [address] [place] Eosinophils/100 WBC (Bld) 0.0 % Normal . [facility] Comment on above: Performed By: #### C DT #### [address] Erythrocyte distribution width (RBC) [Ratio] 14.9 % Normal 11.9-15.3 [facility] Comment on above: Performed By: #### C DT #### [address] Hematocrit (Bld) [Volume fraction] 40.2 % Normal 34.0-46.4 [facility] Comment on above: Performed By: #### C DT #### [address] Hemoglobin (Bld) [Mass/Vol] 13.0 g/dL Normal 11.8-15.4 [facility] Comment on above: Performed By: #### C DT #### [address] Lymphocytes (Bld) [#/Vol] 0.4 10*3/uL Low 1.00-4.8 [facility] Comment on above: Performed By: #### C DT #### [address] Lymphocytes/100 WBC (Bld) 3.1 % Normal . [facility] Comment on above: Performed By: #### C DT #### [address] MCH (RBC) [Entitic mass] 25.5 pg Normal 24.7-34.3 [facility] Comment on above: Performed By: #### C DT #### [address] MCV (RBC) [Entitic vol] 78.7 fL Low 80-100 [facility] Comment on above: Performed By: #### C DT #### [address] Mean Corpuscular HGB Conc 32.4 g/dL Normal 32.0-35.0 [facility] Comment on above: Performed By: #### C DT #### [address] Monocytes (Bld) [#/Vol] 0.6 10*3/uL Normal 0.0-0.8 [facility] Comment on above: Performed By: #### C DT #### [address] Monocytes/100 WBC (Bld) 4.7 % Normal . [facility] Comment on above: Performed By: #### C DT #### [address] Neutrophils (Bld) [#/Vol] 11.7 10*3/uL High 1.8-7.7 [facility] Comment on above: Performed By: #### C DT #### [address] Neutrophils/100 WBC (Bld) 92.2 % Normal . [facility] Comment on above: Performed By: #### C DT #### [address] NRBC% 0.0 /100{WBC} Normal 0-0.5 [facility] Comment on above: Performed By: #### C DT #### [address] Platelet mean volume (Bld) [Entitic vol] 7.4 fL Normal 6.3-10.7 [facility] Comment on above: Performed By: #### C DT #### [address] Platelets (Bld) [#/Vol] 185 10*3/uL Normal 150-450 [facility] Comment on above: Performed By: #### C DT #### [address] RBC (Bld) [#/Vol] 5.11 10*6/uL High 3.60-5.00 [facility] Comment on above: Performed By: #### C DT #### [address] WBC (Bld) [#/Vol] 12.7 10*3/uL High 3.8-11.6 [facility] Comment on above: Performed By: #### C DT #### [address] Basic Metabolic Panelon 09-2 Anion gap [Moles/Vol] 15.2 mmol/L High 6.0-15.0 Th e [facility] Comment on above: Performed By: #### T SH3, LIPID #### [address] Calcium [Mass/Vol] 9.0 mg/dL Normal 8.6-10.3 [facility] Comment on above: Performed By: #### T SH3, LIPID #### [address] Chloride [Moles/Vol] 97 mmol/L Low 98-107 [facility] Comment on above: Performed By: #### T SH3, LIPID #### [address] CO2 [Moles/Vol] 28.1 mmol/L Normal 21.0-31.0 [facility] Comment on above: Performed By: #### T SH3, LIPID #### [address] Creatinine [Mass/Vol] 0.86 mg/dL Normal 0.60-1.20 [facility] Comment on above: Performed By: #### T SH3, LIPID #### [place] [address] [place] Creatinine Clr Calc Pharmacy 73.78 Normal [facility] Comment on above: Result Comment: PERF ORMED BY: [place] [address] PATHOLOGIST INTERN ARCHITECT LIVAN GREEN M.D. Performed By: #### T SH3, LIPID #### [place] [address] [place] GFR/1.73 sq M.predicted MDRD (S/P/Bld) [Vol rate/Area] mL/min/{1.73_m2} Normal [facility] Comment on above: Performed By: #### T SH3, LIPID #### [place] [address] [place] Glucose [Mass/Vol] 259 mg/dL Significant change up 70-100 [facility] Comment on above: Result Comment: [facility] Glucose Reference Range is dependent on time and content of last meal. Glucose of more than 200 mg/dL in a nonstressed, ambulatory subject supports the diagnosis of Diabetes Mellitus. ADA recommended reference range Performed By: #### T SH3, LIPID #### [facility] [address] [place] [address] [place] Potassium [Moles/Vol] 3.3 mmol/L Low 3.5-5.1 [facility] Comment on above: Performed By: #### T SH3, LIPID #### [facility] [address] [place] [address] [place] Sodium [Moles/Vol] 137 mmol/L Normal 136-145 [facility] Comment on above: Performed By: #### T SH3, LIPID #### [facility] [address] Urea nitrogen [Mass/Vol] 14 mg/dL Normal 7-25 [facility] Comment on above: Performed By: #### T SH3, LIPID #### [facility] [address] Clostridioides difficile tox in B tcdB gene [Presence] in Stool by JONI with probe deteOrdered By: Letitia Cruz on 05-08-2024 C. difficile toxin B tcdB gene JONI+probe Ql (Stl) Negative Negative [facility] Comment on above: Testing performed by RT-PCR C. difficile toxin B tcdB gene JONI+probe Ql (Stl) Clostridioides difficile toxin B tcdB gene [Presence] in Stool by JONI with probe dete Negative [facility] Comment on above: Testing performed by RT-PCR Clostridium Difficileon 04-17 Clostridium Difficile Negative Normal Negative [facility] Comment on above: Order Comment: > or = to 3 loose/watery stools in the last 24 HRS? Y Is patient on promotility agents or tube feeding? N Result Comment: Test ing performed by RT-PCR PERFORMED BY: [place] [address] PATHOLOGIST INTERN ARCHITECT LIVAN GREEN M.D. Performed By: #### C DT #### [facility] [address] [place] [address] [place] MRSA Cultureon 05-08-2024 MRSA Culture No MRSA Isolated 2 D ays PERFORMED BY: [facility] [address] [place] [address] PATHOLOGIST INTERN ARCHITECT LIVAN GREEN M.D. Normal [facility] Comment on above: Performed By: #### C DT #### [facility] [address] [place] [address] Serum or plasma trough vanco mycin levelOrdered By: Mira Travonskiene on 05-08-2024 Vancomycin trough [Mass/Vol] 10.2 ug/mL 10.0-20.0 [facility] Comment on above: Last dose: - Vancomycin [Mass/volume] in Serum or Plasma --peakOrdered By: Mira Semaskiene on 05-08-2024 Vancomycin peak [Mass/Vol] 49.3 ug/mL High 20.0-40.0 [facility] Comment on above: Last dose: - Vancomycin peak [Mass/Vol] Vancomycin [Mass/volume] in Serum or Plasma --peak High 20.0-40.0 [facility] Comment on above: Last dose: - Vancomycin [Mass/volume] in Serum or Plasma --troughOrdered By: Mira Semaskiene on 05-08-2024 Vancomycin trough [Mass/Vol] Serum or plasma trough vancomycin level 10.0-20.0 [facility] Comment on above: Last dose: - Vancomycin,Peakon 05-08-2024 Vancomycin,Peak 49.3 ug/mL High 20.0-40.0 [facility] Comment on above: Order Comment: Comme nt ?DRAW 1 HOUR AFTER INFUSION COMPLETES Date of last dose?: [id number] Time of last dose?: 1129 Result Comment: Last dose: - PERFORMED BY: [facility] [address] [place] [address] PATHOLOGIST INTERN ARCHITECT LIVAN GREEN M.D. Performed By: #### V ANCP ####[facility] [id number] [place] [id number] [facility] Vancomycin,Troughon 05-08-20 24 Vancomycin,Trough 10.2 ug/mL Normal 10.0-20.0 [facility] Comment on above: Order Comment: Time of next dose? 2329 Date of last dose?: [id number] Time of last dose?: 1129 Result Comment: Last dose: - PERFORMED BY: [place] [address] PATHOLOGIST INTERN ARCHITECT LIVAN GREEN M.D. Performed By: #### V ANCT ####[place] [id number] [facility] Wound methicillin resistant Staphylococcus aureus (MRSA) cultureOrdered By: Chilo Santos on 05-08-2024 MRSA isol Org specific cx Ql (Unsp spec) Wound methicillin resistant Staphylococcus aureus (MRSA) culture [facility] MRSA isol Org specific cx Ql (Unsp spec) No MRSA Isolated 2 Days [facility] BioFire Not Detectedon 05-07 BioFire Not Detected Not detected Normal Not Detecte [facility] Comment on above: Result Comment: This is a duplicate RP2.1 COVID (PCR) result to be used for statistical tracking purpose only. PERFORMED BY: [place] [address] PATHOLOGIST INTERN ARCHITECT LIVAN GREEN M.D. Performed By: #### B IOFIRECOVNOTDE, RESP PANEL UPP. ####[place] [id number] [facility] COVID-19 Detected/Not Detect edOrdered By: Chilo Santos on 05-07-2024 SARS-CoV-2 (COVID-19) RNA JONI+non-probe Ql (Nph) Not detected Not Detecte [facility] Comment on above: This is a duplicate RP2.1 COVID (PCR) result to be used for statistical tracking purpose only. Complete Blood Count Auto Di ffon 05-07-2024 Basophils (Bld) [#/Vol] 0.0 10*3/uL Normal 0.0-0.2 [facility] Comment on above: Result Comment: PERF ORMED BY: [place] [address] PATHOLOGIST INTERN ARCHITECT LIVAN GREEN M.D. Performed By: #### T SH3, LIPID #### [address] Basophils/100 WBC (Bld) 0.3 % Normal . [facility] Comment on above: Performed By: #### T SH3, LIPID #### [place] [address] [place] Eosinophils (Bld) [#/Vol] 0.0 10*3/uL Normal 0.0-0.45 [facility] Comment on above: Performed By: #### T SH3, LIPID #### [address] Eosinophils/100 WBC (Bld) 0.0 % Normal . [facility] Comment on above: Performed By: #### T SH3, LIPID #### [address] Erythrocyte distribution width (RBC) [Ratio] 14.7 % Normal 11.9-15.3 [facility] Comment on above: Performed By: #### T SH3, LIPID #### [address] Hematocrit (Bld) [Volume fraction] 39.0 % Normal 34.0-46.4 [facility] Comment on above: Performed By: #### T SH3, LIPID #### [place] [address] [place] Hemoglobin (Bld) [Mass/Vol] 13.0 g/dL Normal 11.8-15.4 [facility] Comment on above: Performed By: #### T SH3, LIPID #### [place] [address] [place] Lymphocytes (Bld) [#/Vol] 0.5 10*3/uL Low 1.00-4.8 [facility] Comment on above: Performed By: #### T SH3, LIPID #### [place] [address] [place] Lymphocytes/100 WBC (Bld) 5.1 % Normal . [facility] Comment on above: Performed By: #### T SH3, LIPID #### [address] MCH (RBC) [Entitic mass] 25.9 pg Normal 24.7-34.3 [facility] Comment on above: Performed By: #### T SH3, LIPID #### [address] MCV (RBC) [Entitic vol] 78.0 fL Low 80-100 [facility] Comment on above: Performed By: #### T SH3, LIPID #### [address] Mean Corpuscular HGB Conc 33.2 g/dL Normal 32.0-35.0 [facility] Comment on above: Performed By: #### T SH3, LIPID #### [address] Monocytes (Bld) [#/Vol] 0.2 10*3/uL Normal 0.0-0.8 The [facility] Comment on above: Performed By: #### T SH3, LIPID #### [address] Monocytes/100 WBC (Bld) 1.8 % Normal . [facility] Comment on above: Performed By: #### T SH3, LIPID #### [address] Neutrophils (Bld) [#/Vol] 9.3 10*3/uL High 1.8-7.7 [facility] Comment on above: Performed By: #### T SH3, LIPID #### [address] Neutrophils/100 WBC (Bld) 92.8 % Normal . [facility] Comment on above: Performed By: #### T SH3, LIPID #### [address] NRBC% 0.1 /100{WBC} Normal 0-0.5 The [facility] Comment on above: Performed By: #### T SH3, LIPID #### [facility] [address] Platelet mean volume (Bld) [Entitic vol] 7.4 fL Normal 6.3-10.7 [facility] Comment on above: Performed By: #### T SH3, LIPID #### [address] Platelets (Bld) [#/Vol] 184 10*3/uL Normal 150-450 [facility] Comment on above: Performed By: #### T SH3, LIPID #### [address] RBC (Bld) [#/Vol] 5.00 10*6/uL Normal 3.60-5.00 [facility] Comment on above: Performed By: #### T SH3, LIPID #### [address] WBC (Bld) [#/Vol] 10.0 10*3/uL Normal 3.8-11.6 [facility] Comment on above: Performed By: #### T SH3, LIPID #### [address] Comprehensive Metabolic Pane ceferino 05-07-2024 Albumin [Mass/Vol] 4.1 g/dL Normal 3.5-5.7 The [facility] Comment on above: Performed By: #### T SH3, LIPID #### [address] Albumin/Globulin [Mass ratio] 1.8 {ratio} Normal The [facility] Comment on above: Performed By: #### T SH3, LIPID #### [address] ALP [Catalytic activity/Vol] 49 U/L Normal 34-104 [facility] Comment on above: Performed By: #### T SH3, LIPID #### [address] ALT [Catalytic activity/Vol] 6 U/L Low 7-52 [facility] Comment on above: Performed By: #### T SH3, LIPID #### [address] Anion gap [Moles/Vol] 15.1 mmol/L High 6.0-15.0 Th e [facility] Comment on above: Performed By: #### T SH3, LIPID #### [facility] [address] [place] [address] AST [Catalytic activity/Vol] 9 U/L Low 13-39 [facility] Comment on above: Performed By: #### T SH3, LIPID #### [address] Bilirubin [Mass/Vol] 0.6 mg/dL Normal 0.3-1.0 The [facility] Comment on above: Performed By: #### T SH3, LIPID #### [address] Calcium [Mass/Vol] 8.3 mg/dL Low 8.6-10.3 The [facility] Comment on above: Performed By: #### T SH3, LIPID #### [address] Chloride [Moles/Vol] 101 mmol/L Normal 98-107 The [facility] Comment on above: Performed By: #### T SH3, LIPID #### [address] CO2 [Moles/Vol] 25.8 mmol/L Normal 21.0-31.0 The [facility] Comment on above: Performed By: #### T SH3, LIPID #### [address] Creatinine [Mass/Vol] 0.67 mg/dL Normal 0.60-1.20 The [facility] Comment on above: Performed By: #### T SH3, LIPID #### [address] Creatinine Clr Calc Pharmacy 95.79 Normal The [facility] Comment on above: Result Comment: PERF ORMED BY: [place] [address] PATHOLOGIST INTERN ARCHITECT LIVAN GREEN M.D. Performed By: #### T SH3, LIPID #### [place] [address] [place] GFR/1.73 sq M.predicted MDRD (S/P/Bld) [Vol rate/Area] mL/min/{1.73_m2} Normal The [facility] Comment on above: Performed By: #### T SH3, LIPID #### [facility] [address] [place] [address] [place] Globulin (S) [Mass/Vol] 2.3 g/dL Normal The [facility] Comment on above: Performed By: #### T SH3, LIPID #### [address] Glucose [Mass/Vol] 117 mg/dL High 70-100 The [facility] Comment on above: Result Comment: [facility] Glucose Reference Range is dependent on time and content of last meal. Glucose of more than 200 mg/dL in a nonstressed, ambulatory subject supports the diagnosis of Diabetes Mellitus. ADA recommended reference range Performed By: #### T SH3, LIPID #### [place] [address] [place] Potassium [Moles/Vol] 3.9 mmol/L Normal 3.5-5.1 The [facility] Comment on above: Performed By: #### T SH3, LIPID #### [place] [address] [place] Protein [Mass/Vol] 6.4 g/dL Normal 6.4-8.9 The [facility] Comment on above: Performed By: #### T SH3, LIPID #### [place] [address] [place] Sodium [Moles/Vol] 138 mmol/L Normal 136-145 The [facility] Comment on above: Performed By: #### T SH3, LIPID #### [place] [address] [place] Urea nitrogen [Mass/Vol] 8 mg/dL Normal 7-25 The [facility] Comment on above: Performed By: #### T SH3, LIPID #### [facility] [address] Respiratory (Upper) Panel, P CRon 05-07-2024 [...] Influenza A H3 Blank Space PERFORMED BY: [facility] [address] [place] [address] PATHOLOGIST INTERN ARCHITECT LIVAN GREEN M.D. Normal The [facility] Comment on above: Performed By: #### B IOFIRECOVNOTDE, RESP PANEL UPP. ####[facility] [address] Respiratory pathogens DNA an d RNA panel - Nasopharynx by JONI with non-probe detectionOrdered By: Chilo Santos on 05-07-2024 Respiratory pathogens DNA and RNA panel JONI+non-probe (Nph) Respiratory pathogens DNA and RNA panel - Nasopharynx by JONI with non-probe detection [facility] Respiratory pathogens DNA and RNA panel JONI+non-probe (Nph) [facility] BNP ser/plasOrdered By: Mira Sun on 05-06-2024 Natriuretic peptide B (Bld) [Mass/Vol] 40.0 pg/mL Normal 5-100 [facility] Comment on above: Result Comment: PERF ORMED BY: [place] [address] PATHOLOGIST INTERN ARCHITECT LIVAN GREEN M.D. Performed By: #### C DT #### [address] Basic Metabolic Panelon 04-17 Anion gap [Moles/Vol] 15.4 mmol/L High 6.0-15.0 Th e [facility] Comment on above: Performed By: #### C DT #### [address] Calcium [Mass/Vol] 8.9 mg/dL Normal 8.6-10.3 [facility] Comment on above: Performed By: #### C DT #### [address] Chloride [Moles/Vol] 101 mmol/L Normal 98-107 [facility] Comment on above: Performed By: #### C DT #### [address] CO2 [Moles/Vol] 26.6 mmol/L Normal 21.0-31.0 [facility] Comment on above: Performed By: #### C DT #### [address] Creatinine [Mass/Vol] 0.87 mg/dL Normal 0.60-1.20 [facility] Comment on above: Performed By: #### C DT #### [address] Creatinine Clr Calc Pharmacy 73.77 Normal The [facility] Comment on above: Performed By: #### C DT #### [place] [address] [place] GFR/1.73 sq M.predicted MDRD (S/P/Bld) [Vol rate/Area] mL/min/{1.73_m2} Normal [facility] Comment on above: Performed By: #### C DT #### [facility] [address] Glucose [Mass/Vol] 149 mg/dL High 70-100 The [facility] Comment on above: Result Comment: [facility] Glucose Reference Range is dependent on time and content of last meal. Glucose of more than 200 mg/dL in a nonstressed, ambulatory subject supports the diagnosis of Diabetes Mellitus. ADA recommended reference range Performed By: #### C DT #### [facility] [address] Potassium [Moles/Vol] 4.0 mmol/L Normal 3.5-5.1 [facility] Comment on above: Performed By: #### C DT #### [facility] [address] [place] [address] [place] Sodium [Moles/Vol] 139 mmol/L Normal 136-145 [facility] Comment on above: Performed By: #### C DT #### [facility] [address] [place] [address] [place] Urea nitrogen [Mass/Vol] 9 mg/dL Normal 7-25 [facility] Comment on above: Performed By: #### C DT #### [address] ECG 12 lead ECGon 05-06-2024 ECG 12 lead ECG [place] [address] Electrocardiograph Report Signed Patient: Flash Irving MR#: [id number] 6 : 1975 Acct:[id number] Age/Sex: 49 / F ADM Date: 05/06/24 Loc: Room: [address] [place] [address] Type: ADM IN Attending Dr: Letitia Cruz [...] change was found Confirmed by MEGAN TURNER [facility], PORSHA ([id number]) on 05/07/2024 3:47:11 PM Referred By: Electronically Signed By: PORSHA GUZMAN MD [facility] Transcribed By: MUS Signed By Porsha Guzman MD, [facility] 05/07/24 0077 Normal [facility] Gram Stainon 05-06-2024 Microscopic observation [...] @ PLEASE ADD MARKER [email or web address] PERFORMED BY: [place] [address] PATHOLOGIST INTERN ARCHITECT LIVAN GREEN M.D. Normal The [facility] Comment on above: Performed By: #### C DT #### [facility] [address] [place] [address] Magnesiumon 05-06-2024 Magnesium [Mass/Vol] 1.7 mg/dL Low 1.9-2.7 [facility] Comment on above: Result Comment: PERF ORMED BY: [place] [address] PATHOLOGIST INTERN ARCHITECT LIVAN GREEN M.D. Performed By: #### T SH3, LIPID #### [facility] [address] [place] [address] Natriuretic peptide B [Mass/ Vol]Ordered By: Mira Sun on 05-06-2024 Natriuretic peptide B (Bld) [Mass/Vol] BNP ser/plas 5-100 [facility] Troponin I High Sensitivityo n 05-06-2024 Troponin I High Sensitivity 4.9 pg/mL Normal 0.0-15.0 [facility] Comment on above: Result Comment: PERF ORMED BY: [facility] [address] [place] [address] PATHOLOGIST INTERN ARCHITECT LIVAN GREEN M.D. Performed By: #### T SH3, LIPID #### [facility] [address] Troponin I.cardiac [Mass/vol ume] in Serum or Plasma by Detection limit <= 0.01 ng/Ordered By: Mira Sun on 05-06-2024 Troponin I.cardiac DL <= 0.01 ng/mL [Mass/Vol] 4.9 pg/mL 0.0-15.0 [facility] Troponin I.cardiac DL <= 0.01 ng/mL [Mass/Vol] Troponin I.cardiac [Mass/volume] in Serum or Plasma by Detection limit <= 0.01 ng/ 0.0-15.0 [facility] CNPNon 04-28-2024 CNPN Telephone (OPHTBE) FLASH IRVING ([id number]) 1975 F Date Time Provider Department 04/28/24 SHUBHAM KNOX During your visit today, we recorded the following information about you: Belkis Richard 04/28/2024 2:59 PM Signed Fax medical records from [facility] office of Dr Jackson Borrero. Placed at front desk host for review. 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] 09/16/2017 [facility] mycophenolate mofetil therapy [Z79*09/16/2017 Raynaud's phenomenon without gangrene [I73.00] 09/16/2017 Recurrent spontaneous pneumothorax [J93.83] 04/24/2019 NSIP (nonspecific interstitial pneumonia) (HCC)* ILD (interstitial lung disease) (HCC) [J84.9] Family history of MS (multiple sclerosis) [Z82.* Former smoker [Z87.891] GERD (gastroesophageal reflux disease) [K21.9] Raynaud's phenomenon [I73.00] Encounter Status:Closed by BELKIS RICHARD on 04/28/24 Normal [facility] Alanine aminotransferase [En zymatic activity/volume] in Serum or PlasmaOrdered By: Adelita Bhagat on 03-10-2024 ALT [Catalytic activity/Vol] 7 U/L 7 [facility] Albumin [Mass/volume] in Ser um or Plasma by Bromocresol green (BCG) dye binding methoOrdered By: Adelita Bhagat on 03-10-2024 Albumin BCG dye [Mass/Vol] 4.2 g/dL 3.5-5.7 [facility] Alkaline phosphatase [Enzyma tic activity/volume] in Serum or PlasmaOrdered By: Adelita Bhagat on 03-10-2024 ALP [Catalytic activity/Vol] 43 U/L 34-104 [facility] Aspartate aminotransferase [ Enzymatic activity/volume] in Serum or PlasmaOrdered By: Adelita Bhaagt on 03-10-2024 AST [Catalytic activity/Vol] 9 U/L Low 13-39 [facility] Basophils Auto (Bld) [#/Vol] Ordered By: Adelita Bhagat on 03-10-2024 Basophils (Bld) [#/Vol] 0.0 10*3/uL 0.0-0.2 [facility] Basophils/100 WBC Auto (Bld) Ordered By: Adelita Bhagat on 03-10-2024 Basophils/100 WBC (Bld) 0.5 % . [facility] Bilirubin.direct [Mass/volum e] in Serum or PlasmaOrdered By: Adelita Bhagat on 03-10-2024 Bilirubin.direct [Mass/Vol] 0.10 mg/dL 0.03-0.18 [facility] Bilirubin.total [Mass/volume ] in Serum or PlasmaOrdered By: Adelita Bhagat on 03-10-2024 Bilirubin [Mass/Vol] 0.6 mg/dL 0.3-1.0 [facility] Creatinine [Mass/volume] in Serum or PlasmaOrdered By: Adelita Bhagat on 03-10-2024 Creatinine [Mass/Vol] 0.75 mg/dL 0.60-1.20 [facility] Eosinophils Auto (Bld) [#/Vo l]Ordered By: Adelita Bhagat on 03-10-2024 Eosinophils (Bld) [#/Vol] 0.0 10*3/uL 0.0-0.45 [facility] Eosinophils/100 WBC Auto (Bl d)Ordered By: Adelita Bhagat on 03-10-2024 Eosinophils/100 WBC (Bld) 0.3 % . [facility] Erythrocyte distribution wid th Auto (RBC) [Ratio]Ordered By: Adelita Bhagat on 03-10-2024 Erythrocyte distribution width (RBC) [Ratio] 16.1 % High 11.9-15.3 [facility] Globulin Calc (S) [Mass/Vol] Ordered By: Adelita Bhagat on 03-10-2024 Globulin (S) [Mass/Vol] 2.3 g/dL [facility] Hematocrit Auto (Bld) [Volum e fraction]Ordered By: Adelita Bhagat on 03-10-2024 Hematocrit (Bld) [Volume fraction] 40.6 % 34.0-46.4 [facility] Hemoglobin [Mass/volume] in BloodOrdered By: Adelita Bhagat on 03-10-2024 Hemoglobin (Bld) [Mass/Vol] 13.2 g/dL 11.8-15.4 [facility] Leukocytes [#/volume] correc steff for nucleated erythrocytes in Blood by Automated counOrdered By: Adelita Bhagat on 03-10-2024 WBC corrected for nucl RBC Auto (Bld) [#/Vol] 9.0 10*3/uL 3.8-11.6 [facility] Lymphocytes Auto (Bld) [#/Vo l]Ordered By: Adelita Bhagat on 03-10-2024 Lymphocytes (Bld) [#/Vol] 0.6 10*3/uL Low 1.00-4.8 [facility] Lymphocytes/100 WBC Auto (Bl d)Ordered By: Adelita Bhagat on 03-10-2024 Lymphocytes/100 WBC (Bld) 7.2 % . [facility] MCH Auto (RBC) [Entitic mass ]Ordered By: Adelita Bhagat on 03-10-2024 MCH (RBC) [Entitic mass] 25.5 pg 24.7-34.3 [facility] MCHC Auto (RBC) [Mass/Vol]Or dered By: Adelita Bhagat on 03-10-2024 MCHC (RBC) [Mass/Vol] 32.5 g/dL 32.0-35.0 [facility] MCV Auto (RBC) [Entitic vol] Ordered By: Adelita Bhagat on 03-10-2024 MCV (RBC) [Entitic vol] 78.5 fL Low 80-100 [facility] Monocytes Auto (Bld) [#/Vol] Ordered By: Adelita Bhagat on 03-10-2024 Monocytes (Bld) [#/Vol] 0.2 10*3/uL 0.0-0.8 [facility] Monocytes/100 WBC Auto (Bld) Ordered By: Adelita Bhagat on 03-10-2024 Monocytes/100 WBC (Bld) 2.3 % . [facility] Neutrophils Auto (Bld) [#/Vo l]Ordered By: Adelita Bhagat on 03-10-2024 Neutrophils (Bld) [#/Vol] 8.1 10*3/uL High 1.8-7.7 [facility] Neutrophils/100 WBC Auto (Bl d)Ordered By: Adelita Bhagat on 03-10-2024 Neutrophils/100 WBC (Bld) 89.7 % . [facility] No Panel InformationOrdered By: Adelita Bhagat on 03-10-2024 Estimated GFR (CKD-EPI) > 60.0 mL/Min [facility] Creatinine Clearance (Chem N/A [facility] Nucleated erythrocytes [Pres ence] in Blood by Automated countOrdered By: Adelita Bhagat on 03-10-2024 Nucleated RBC Auto Ql (Bld) 0.1 /100{WBC} 0-0.5 [facility] Platelet mean volume Auto (B ld) [Entitic vol]Ordered By: Adelita Bhagat on 03-10-2024 Platelet mean volume (Bld) [Entitic vol] 7.5 fL 6.3-10.7 [facility] Platelets Auto (Bld) [#/Vol] Ordered By: Adelita Bhagat on 03-10-2024 Platelets (Bld) [#/Vol] 208 10*3/uL 150-450 [facility] Protein [Mass/volume] in Ser um or PlasmaOrdered By: Adelita Bhagat on 03-10-2024 Protein [Mass/Vol] 6.5 g/dL 6.4-8.9 [facility] RBC Auto (Bld) [#/Vol]Ordere d By: Adelita Bhagat on 03-10-2024 RBC (Bld) [#/Vol] 5.18 10*6/uL High 3.60-5.00 [facility] Serum or plasma albumin/glob ulin mass ratioOrdered By: Adelita Bhagat on 03-10-2024 Albumin/Globulin [Mass ratio] 1.8 {ratio} [facility] Serum or plasma non-glucuron idated bilirubin measurement (mass/volume)Ordered By: Adelita Bhagat on 03-10-2024 Bilirubin.indirect [Mass/Vol] 0.5 mg/dL [facility] WBC Auto (Bld) [#/Vol]Ordere d By: Adelita Bhagat on 03-10-2024 WBC (Bld) [#/Vol] 9.0 10*3/uL 3.8-11.6 [facility] Alanine aminotransferase [En zymatic activity/volume] in Serum or PlasmaOrdered By: Jabari Celeste on 11-26-2023 ALT [Catalytic activity/Vol] 8 U/L 7-52 [facility] Albumin [Mass/volume] in Ser um or Plasma by Bromocresol green (BCG) dye binding methoOrdered By: Jabari Celeste on 11-26-2023 Albumin BCG dye [Mass/Vol] 4.0 g/dL 3.5-5.7 [facility] Alkaline phosphatase [Enzyma tic activity/volume] in Serum or PlasmaOrdered By: Jabari Celeste on 11-26-2023 ALP [Catalytic activity/Vol] 39 U/L 34-104 [facility] Aspartate aminotransferase [ Enzymatic activity/volume] in Serum or PlasmaOrdered By: Jabari Celeste on 11-26-2023 AST [Catalytic activity/Vol] 10 U/L 13-39 [facility] Basophils Auto (Bld) [#/Vol] Ordered By: Jabari Celeste on 11-26-2023 Basophils (Bld) [#/Vol] 0.1 10*3/uL 0.0-0.2 [facility] Basophils/100 WBC Auto (Bld) Ordered By: Jabari Celeste on 11-26-2023 Basophils/100 WBC (Bld) 1.1 % . [facility] Bilirubin.total [Mass/volume ] in Serum or PlasmaOrdered By: Jabari Celeste on 11-26-2023 Bilirubin [Mass/Vol] 0.6 mg/dL 0.3-1.0 [facility] Calcium [Mass/volume] in Ser um or PlasmaOrdered By: Jabari Celeste on 11-26-2023 Calcium [Mass/Vol] 9.0 mg/dL 8.6-10.3 [facility] Carbon dioxide, total [Moles /volume] in Serum or PlasmaOrdered By: Jabari Celeste on 11-26-2023 CO2 [Moles/Vol] 29.9 mmol/L 21.0-31.0 [facility] Chloride [Moles/volume] in S luz maria or PlasmaOrdered By: Jabari Celeste on 11-26-2023 Chloride [Moles/Vol] 107 mmol/L 98-107 [facility] Cholesterol [Mass/volume] in Serum or PlasmaOrdered By: Jabari Celeste on 11-26-2023 Cholesterol [Mass/Vol] 190 mg/dL 140-200 [facility] Comment on above: Chol less than 200 m g/dl low riskChol 201-239 mg/dl borderline riskChol 240 mg/dl and greater high risk Cholesterol in LDL Calc [Mas s/Vol]Ordered By: Jabari Celeste on 11-26-2023 Cholesterol in LDL [Mass/Vol] 118 mg/dL 0-100 [facility] Comment on above: LDL ATP III CLASSIFI CATIONLDL less than 100 mg/dL OptimalLDL 100-129 mg/dL Near or above optimalLDL 130-159 mg/dL Borderline highLDL 160-189 mg/dL HighLDL greater than 189 mg/dL Very high Cholesterol in VLDL Calc [Ma ss/Vol]Ordered By: Jabari Celeste on 11-26-2023 Cholesterol in VLDL [Mass/Vol] 17 mg/dL [facility] Creatinine [Mass/volume] in Serum or PlasmaOrdered By: Jabari Celeste on 11-26-2023 Creatinine [Mass/Vol] 0.70 mg/dL 0.60-1.20 [facility] Creatinine [Mass/volume] in UrineOrdered By: Jabari Celeste on 11-26-2023 Creatinine (U) [Mass/Vol] mg/dL [facility] Comment on above: No reference range e stablished Eosinophils Auto (Bld) [#/Vo l]Ordered By: Jabari Celeste on 11-26-2023 Eosinophils (Bld) [#/Vol] 0.1 10*3/uL 0.0-0.45 [facility] Eosinophils/100 WBC Auto (Bl d)Ordered By: Jabari Celeste on 11-26-2023 Eosinophils/100 WBC (Bld) 1.1 % . [facility] Erythrocyte distribution wid th Auto (RBC) [Ratio]Ordered By: Jabari Celeste on 11-26-2023 Erythrocyte distribution width (RBC) [Ratio] 14.7 % 11.9-15.3 [facility] Globulin Calc (S) [Mass/Vol] Ordered By: Jabari Celeste on 11-26-2023 Globulin (S) [Mass/Vol] 2.3 g/dL [facility] Glucose [Mass/volume] in Ser um or PlasmaOrdered By: Jabari Celeste on 11-26-2023 Glucose [Mass/Vol] 74 mg/dL 70-100 [facility] Comment on above: ADA recommended refe rence rangeRandom Glucose Reference Range is dependent on time and content of last meal. Glucose of more than 200 mg/dL in a nonstressed, ambulatory subject supports the diagnosis of Diabetes Mellitus. Hematocrit Auto (Bld) [Volum e fraction]Ordered By: Jabrai Celeste on 11-26-2023 Hematocrit (Bld) [Volume fraction] 40.7 % 34.0-46.4 [facility] Hemoglobin [Mass/volume] in BloodOrdered By: Jabari Celeste on 11-26-2023 Hemoglobin (Bld) [Mass/Vol] 12.9 g/dL 11.8-15.4 [facility] Leukocytes [#/volume] correc steff for nucleated erythrocytes in Blood by Automated counOrdered By: Jabari Celeste on 11-26-2023 WBC corrected for nucl RBC Auto (Bld) [#/Vol] 9.0 10*3/uL 3.8-11.6 [facility] Lymphocytes Auto (Bld) [#/Vo l]Ordered By: Jabari Celeste on 11-26-2023 Lymphocytes (Bld) [#/Vol] 2.0 10*3/uL 1.00-4.8 [facility] Lymphocytes/100 WBC Auto (Bl d)Ordered By: Jabari Celeste on 11-26-2023 Lymphocytes/100 WBC (Bld) 22.7 % . [facility] MCH Auto (RBC) [Entitic mass ]Ordered By: Jabari Celeste on 11-26-2023 MCH (RBC) [Entitic mass] 25.5 pg 24.7-34.3 [facility] MCHC Auto (RBC) [Mass/Vol]Or dered By: Jabari Celeste on 11-26-2023 MCHC (RBC) [Mass/Vol] 31.8 g/dL 32.0-35.0 [facility] MCV Auto (RBC) [Entitic vol] Ordered By: Jabari Celeste on 11-26-2023 MCV (RBC) [Entitic vol] 80.3 fL 80-100 [facility] Microalbumin [Mass/volume] i n UrineOrdered By: Jabari Celeste on 11-26-2023 Albumin DL <= 20 mg/L (U) [Mass/Vol] 3.8 mg/dL 0.0-1.8 [facility] Monocytes Auto (Bld) [#/Vol] Ordered By: Jabari Celeste on 11-26-2023 Monocytes (Bld) [#/Vol] 0.6 10*3/uL 0.0-0.8 [facility] Monocytes/100 WBC Auto (Bld) Ordered By: Jabari Celeste on 11-26-2023 Monocytes/100 WBC (Bld) 6.8 % . [facility] Neutrophils Auto (Bld) [#/Vo l]Ordered By: Jabari Celeste on 11-26-2023 Neutrophils (Bld) [#/Vol] 6.1 10*3/uL 1.8-7.7 [facility] Neutrophils/100 WBC Auto (Bl d)Ordered By: Jabari Celeste on 11-26-2023 Neutrophils/100 WBC (Bld) 68.3 % . [facility] No Panel InformationOrdered By: Jabari Celeste on 11-26-2023 Estimated GFR (CKD-EPI) > 60.0 mL/Min [facility] Creatinine Clearance (Chem N/A [facility] Nucleated erythrocytes [Pres ence] in Blood by Automated countOrdered By: Jabari Celeste on 11-26-2023 Nucleated RBC Auto Ql (Bld) 0.1 /100{WBC} 0-0.5 [facility] Platelet mean volume Auto (B ld) [Entitic vol]Ordered By: Jabari Celeste on 11-26-2023 Platelet mean volume (Bld) [Entitic vol] 7.3 fL 6.3-10.7 [facility] Platelets Auto (Bld) [#/Vol] Ordered By: Jabari Celeste on 11-26-2023 Platelets (Bld) [#/Vol] 186 10*3/uL 150-450 [facility] Potassium [Moles/volume] in Serum or PlasmaOrdered By: Jabari Celeste on 11-26-2023 Potassium [Moles/Vol] 3.6 mmol/L 3.5-5.1 [facility] [facility] Protein [Mass/volume] in Ser um or PlasmaOrdered By: Jabari Celeste on 11-26-2023 Protein [Mass/Vol] 6.3 g/dL 6.4-8.9 [facility] RBC Auto (Bld) [#/Vol]Ordere d By: Jabari Celeste on 11-26-2023 RBC (Bld) [#/Vol] 5.06 10*6/uL 3.60-5.00 [facility] Serum or plasma albumin/glob ulin mass ratioOrdered By: Jabari Celeste on 11-26-2023 Albumin/Globulin [Mass ratio] 1.7 {ratio} [facility] Serum or plasma anion gap de terminationOrdered By: Jabari Celeste on 11-26-2023 Anion gap [Moles/Vol] 6.7 mmol/L 6.0-15.0 [facility] Serum or plasma high density lipoprotein (HDL) cholesterol measurementOrdered By: Jabari Celeste on 11-26-2023 Cholesterol in HDL [Mass/Vol] 54 mg/dL 23-92 [facility] Comment on above: HDL CHOL ATP-III CLA SSIFICATION Cardiovascular RiskHDL > or equal to 60 mg/dL LOWHDL < 40 mg/dL HIGH Serum or plasma total choles terol/high density lipoprotein (HDL) cholesterol mass ratOrdered By: Jabari Celeste on 11-26-2023 Cholesterol.total/Chol esterol in HDL [Mass ratio] 3.5 {ratio} <5.0 [facility] Sodium [Moles/volume] in Ser um or PlasmaOrdered By: Jabari Celeste on 11-26-2023 Sodium [Moles/Vol] 140 mmol/L 136-145 [facility] Thyrotropin [Units/volume] i n Serum or PlasmaOrdered By: Jabari Celeste on 11-26-2023 TSH Qn 2.02 m[IU]/L 0.45-5.33 [facility] Triglyceride [Mass/volume] i n Serum or PlasmaOrdered By: Jabari Celeste on 11-26-2023 Triglyceride [Mass/Vol] 89 mg/dL 0-149 [facility] Comment on above: TRIG ATP III CLASSIF ICATIONTRIG less than 150 mg/dL NormalTRIG 150-199 mg/dL Borderline highTRIG 200-500 mg/dL High TRIG greater than 500 mg/dL Very highStandard traceable to the Center for Disease Conrtrol and Prevention (CDC) test method. Urea nitrogen [Mass/volume] in Serum or PlasmaOrdered By: Jabari Celeste on 11-26-2023 Urea nitrogen [Mass/Vol] 7 mg/dL 7-25 [facility] Urine microalbumin/creatinin e mass ratioOrdered By: Jabari Celeste on 11-26-2023 Albumin/Creatinine DL <= 20 mg/L (U) [Mass ratio] TNP [facility] Comment on above: Test not performed WBC Auto (Bld) [#/Vol]Ordere d By: Jabari Celeste on 11-26-2023 WBC (Bld) [#/Vol] 9.0 10*3/uL 3.8-11.6 [facility] Calcium [Mass/volume] in Ser um or PlasmaOrdered By: Jazmin Snyder on 10-14-2023 Calcium [Mass/Vol] 8.4 mg/dL 8.6-10.3 [facility] Carbon dioxide, total [Moles /volume] in Serum or PlasmaOrdered By: Jazmin Snyder on 10-14-2023 CO2 [Moles/Vol] 28.3 mmol/L 21.0-31.0 [facility] Chloride [Moles/volume] in S luz maria or PlasmaOrdered By: aJzmin Snyder on 10-14-2023 Chloride [Moles/Vol] 105 mmol/L 98-107 [facility] Creatinine [Mass/volume] in Serum or PlasmaOrdered By: Jazmin Snyder on 10-14-2023 Creatinine [Mass/Vol] 0.55 mg/dL 0.60-1.20 [facility] Glucose [Mass/volume] in Ser um or PlasmaOrdered By: Jazmin Snyder on 10-14-2023 Glucose [Mass/Vol] 96 mg/dL 70-100 [facility] Comment on above: ADA recommended refe rence rangeRandom Glucose Reference Range is dependent on time and content of last meal. Glucose of more than 200 mg/dL in a nonstressed, ambulatory subject supports the diagnosis of Diabetes Mellitus. Magnesium [Mass/volume] in S luz maria or PlasmaOrdered By: Jazmin Snyder on 10-14-2023 Magnesium [Mass/Vol] 1.9 mg/dL 1.9-2.7 [facility] No Panel InformationOrdered By: Jazmin Snyder on 10-14-2023 Estimated GFR (CKD-EPI) > 60.0 mL/Min [facility] Creatinine Clearance (Chem 116.79 [facility] Potassium [Moles/volume] in Serum or PlasmaOrdered By: Jazmin Snyder on 10-14-2023 Potassium [Moles/Vol] 4.6 mmol/L 3.5-5.1 [facility] Serum or plasma anion gap de terminationOrdered By: Jazmin Snyder on 10-14-2023 Anion gap [Moles/Vol] 9.3 mmol/L 6.0-15.0 [facility] Serum or plasma trough vanco mycin levelOrdered By: Rohith Avina on 10-14-2023 Vancomycin trough [Mass/Vol] 9.0 ug/mL 10.0-20.0 [facility] Comment on above: Last dose: - Sodium [Moles/volume] in Ser um or PlasmaOrdered By: Jazmin Snyder on 10-14-2023 Sodium [Moles/Vol] 138 mmol/L 136-145 [facility] Urea nitrogen [Mass/volume] in Serum or PlasmaOrdered By: Jazmin Snyder on 10-14-2023 Urea nitrogen [Mass/Vol] 9 mg/dL 7-25 [facility] Vancomycin [Mass/volume] in Serum or Plasma --peakOrdered By: Rohith Avina on 10-14-2023 Vancomycin peak [Mass/Vol] 25.7 ug/mL 20.0-40.0 [facility] Comment on above: Last dose: - Alanine aminotransferase [En zymatic activity/volume] in Serum or PlasmaOrdered By: Jazmin Snyder on 10-13-2023 ALT [Catalytic activity/Vol] 13 U/L 7-52 [facility] Albumin [Mass/volume] in Ser um or Plasma by Bromocresol green (BCG) dye binding methoOrdered By: Jazmin Snyder on 10-13-2023 Albumin BCG dye [Mass/Vol] 3.7 g/dL 3.5-5.7 [facility] Alkaline phosphatase [Enzyma tic activity/volume] in Serum or PlasmaOrdered By: Jazmin Snyder on 10-13-2023 ALP [Catalytic activity/Vol] 41 U/L 34-104 [facility] Aspartate aminotransferase [ Enzymatic activity/volume] in Serum or PlasmaOrdered By: Jazmin Snyder on 10-13-2023 AST [Catalytic activity/Vol] 12 U/L 13-39 [facility] Bilirubin.direct [Mass/volum e] in Serum or PlasmaOrdered By: Jazmin Snyder on 10-13-2023 Bilirubin.direct [Mass/Vol] 0.10 mg/dL 0.03-0.18 [facility] Bilirubin.total [Mass/volume ] in Serum or PlasmaOrdered By: Jazmin Snyder on 10-13-2023 Bilirubin [Mass/Vol] 0.6 mg/dL 0.3-1.0 [facility] Globulin Calc (S) [Mass/Vol] Ordered By: Jazmin Snyder on 10-13-2023 Globulin (S) [Mass/Vol] 2.6 g/dL [facility] Protein [Mass/volume] in Ser um or PlasmaOrdered By: Jazmin Snyder on 10-13-2023 Protein [Mass/Vol] 6.3 g/dL 6.4-8.9 [facility] Serum or plasma albumin/glob ulin mass ratioOrdered By: Jazmin Snyder on 10-13-2023 Albumin/Globulin [Mass ratio] 1.4 {ratio} [facility] Serum or plasma non-glucuron idated bilirubin measurement (mass/volume)Ordered By: Jazmin Snyder on 10-13-2023 Bilirubin.indirect [Mass/Vol] 0.5 mg/dL [facility] Activated partial thrombopla stin time (aPTT) in platelet poor plasma by coagulation aOrdered By: Dariel Hicks on 10-12-2023 aPTT Coag (PPP) [Time] 27.1 s 25.1-36.5 [facility] Comment on above: A hematocrit value g reater than 55% may lead to inaccurate results in coagulation testing. Patients having hematocrit values >55% require a special collection tube for coagulation studies. Please contact the laboratory at [phone] for redraw instructions. Basophils Auto (Bld) [#/Vol] Ordered By: Dariel Hicks on 10-12-2023 Basophils (Bld) [#/Vol] 0.1 10*3/uL 0.0-0.2 [facility] Basophils/100 WBC Auto (Bld) Ordered By: Dariel Hicks on 10-12-2023 Basophils/100 WBC (Bld) 0.8 % . [facility] COVID CepheidOrdered By: Renny Hicks on 10-12-2023 SARS-CoV-2 (COVID-19) Ab IA Ql Negative Negative [facility] Comment on above: This is a duplicate Cepheid Xpert Xpress CoV-2/Flu/RSV Plus RNA by RT-PCR result to be used for statistical tracking purpose only. SARS-CoV-2 (COVID-19) RNA JONI+probe Ql (Unsp spec) [facility] Creatine kinase [Enzymatic a ctivity/volume] in Serum or PlasmaOrdered By: Dariel Hicks on 10-12-2023 CK [Catalytic activity/Vol] 21 U/L 30-223 [facility] Eosinophils Auto (Bld) [#/Vo l]Ordered By: Dariel Hicks on 10-12-2023 Eosinophils (Bld) [#/Vol] 0.1 10*3/uL 0.0-0.45 [facility] Eosinophils/100 WBC Auto (Bl d)Ordered By: Dariel Hicks on 10-12-2023 Eosinophils/100 WBC (Bld) 1.5 % . [facility] Erythrocyte distribution wid th Auto (RBC) [Ratio]Ordered By: Dariel Hicks on 10-12-2023 Erythrocyte distribution width (RBC) [Ratio] 15.1 % 11.9-15.3 [facility] Fibrin D-dimer [Presence] in Platelet poor plasma by Latex agglutinationOrdered By: Dariel Hicks on 10-12-2023 Fibrin D-dimer LA Ql (PPP) < 200 ng/mL 0-243 [facility] Comment on above: The reference range [...] coagulation studies. Please contact the laboratory at [phone] for redraw instructions. Hematocrit Auto (Bld) [Volum e fraction]Ordered By: Dariel Hicks on 10-12-2023 Hematocrit (Bld) [Volume fraction] 37.3 % 34.0-46.4 [facility] Hemoglobin [Mass/volume] in BloodOrdered By: Dariel Hicks on 10-12-2023 Hemoglobin (Bld) [Mass/Vol] 12.3 g/dL 11.8-15.4 [facility] INR in Platelet poor plasma by Coagulation assayOrdered By: Dariel Hicks on 10-12-2023 INR Coag (PPP) [Relative time] 1.0 {INR} [facility] Comment on above: INR Therapeutic Rang [...] RBC Auto (Bld) [#/Vol] 7.3 10*3/uL 3.8-11.6 [facility] Lymphocytes Auto (Bld) [#/Vo l]Ordered By: Dariel Hicks on 10-12-2023 Lymphocytes (Bld) [#/Vol] 1.4 10*3/uL 1.00-4.8 [facility] Lymphocytes/100 WBC Auto (Bl d)Ordered By: Dariel Hicks on 10-12-2023 Lymphocytes/100 WBC (Bld) 19.4 % . [facility] MCH Auto (RBC) [Entitic mass ]Ordered By: Dariel Hicks on 10-12-2023 MCH (RBC) [Entitic mass] 26.3 pg 24.7-34.3 [facility] MCHC Auto (RBC) [Mass/Vol]Or dered By: Dariel Hicks on 10-12-2023 MCHC (RBC) [Mass/Vol] 33.1 g/dL 32.0-35.0 [facility] MCV Auto (RBC) [Entitic vol] Ordered By: Dariel Hicks on 10-12-2023 MCV (RBC) [Entitic vol] 79.6 fL 80-100 [facility] Monocyte distribution width [Entitic volume] in Blood by AutomatedOrdered By: Dariel Hicks on 10-12-2023 Monocyte distribution width Auto (Bld) [Entitic vol] 16.81 % 0.00-20.00 [facility] Monocytes Auto (Bld) [#/Vol] Ordered By: Dariel Hicks on 10-12-2023 Monocytes (Bld) [#/Vol] 0.6 10*3/uL 0.0-0.8 [facility] Monocytes/100 WBC Auto (Bld) Ordered By: Dariel Hicks on 10-12-2023 Monocytes/100 WBC (Bld) 8.1 % . [facility] Natriuretic peptide B [Mass/ Vol]Ordered By: Dariel Hicks on 10-12-2023 Natriuretic peptide B (Bld) [Mass/Vol] 18.0 pg/mL 5-100 [facility] Neutrophils Auto (Bld) [#/Vo l]Ordered By: Dariel Hicks on 10-12-2023 Neutrophils (Bld) [#/Vol] 5.2 10*3/uL 1.8-7.7 [facility] Neutrophils/100 WBC Auto (Bl d)Ordered By: Dariel Hicks on 10-12-2023 Neutrophils/100 WBC (Bld) 70.2 % . [facility] Nucleated erythrocytes [Pres ence] in Blood by Automated countOrdered By: Dariel Hicks on 10-12-2023 Nucleated RBC Auto Ql (Bld) 0.0 /100{WBC} 0-0.5 [facility] Platelet mean volume Auto (B ld) [Entitic vol]Ordered By: Dariel Hicks on 10-12-2023 Platelet mean volume (Bld) [Entitic vol] 7.2 fL 6.3-10.7 [facility] Platelets Auto (Bld) [#/Vol] Ordered By: Dariel Hicks on 10-12-2023 Platelets (Bld) [#/Vol] 178 10*3/uL 150-450 [facility] Prothrombin time (PT)Ordered By: Dariel Hicks on 10-12-2023 PT Coag (PPP) [Time] 11.2 s 9.0-12.9 [facility] Comment on above: A hematocrit value g reater than 55% may lead to inaccurate results in coagulation testing. Patients having hematocrit values >55% require a special collection tube for coagulation studies. Please contact the laboratory at [phone] for redraw instructions. RBC Auto (Bld) [#/Vol]Ordere d By: Dariel Hicks on 10-12-2023 RBC (Bld) [#/Vol] 4.68 10*6/uL 3.60-5.00 [facility] Troponin I.cardiac [Mass/vol ume] in Serum or Plasma by Detection limit <= 0.01 ng/Ordered By: Dariel Hicks on 10-12-2023 Troponin I.cardiac DL <= 0.01 ng/mL [Mass/Vol] 5.2 pg/mL 0.0-15.0 [facility] WBC Auto (Bld) [#/Vol]Ordere d By: Dariel Hicks on 10-12-2023 WBC (Bld) [#/Vol] 7.3 10*3/uL 3.8-11.6 [facility] Alanine aminotransferase [En zymatic activity/volume] in Serum or PlasmaOrdered By: NON STAFF on 09-10-2023 ALT [Catalytic activity/Vol] 7 U/L 7-52 [facility] Albumin [Mass/volume] in Ser um or Plasma by Bromocresol green (BCG) dye binding methoOrdered By: NON STAFF on 09-10-2023 Albumin BCG dye [Mass/Vol] 4.0 g/dL 3.5-5.7 [facility] Alkaline phosphatase [Enzyma tic activity/volume] in Serum or PlasmaOrdered By: NON STAFF on 09-10-2023 ALP [Catalytic activity/Vol] 37 U/L 34-104 [facility] Aspartate aminotransferase [ Enzymatic activity/volume] in Serum or PlasmaOrdered By: NON STAFF on 09-10-2023 AST [Catalytic activity/Vol] 10 U/L 13-39 [facility] Basophils Auto (Bld) [#/Vol] Ordered By: NON STAFF on 09-10-2023 Basophils (Bld) [#/Vol] 0.1 10*3/uL 0.0-0.2 [facility] Basophils/100 WBC Auto (Bld) Ordered By: NON STAFF on 09-10-2023 Basophils/100 WBC (Bld) 0.6 % . [facility] Bilirubin.direct [Mass/volum e] in Serum or PlasmaOrdered By: NON STAFF on 09-10-2023 Bilirubin.direct [Mass/Vol] 0.20 mg/dL 0.03-0.18 [facility] Bilirubin.total [Mass/volume ] in Serum or PlasmaOrdered By: NON STAFF on 09-10-2023 Bilirubin [Mass/Vol] 0.8 mg/dL 0.3-1.0 [facility] Creatinine [Mass/volume] in Serum or PlasmaOrdered By: NON STAFF on 09-10-2023 Creatinine [Mass/Vol] 0.70 mg/dL 0.60-1.20 [facility] Eosinophils Auto (Bld) [#/Vo l]Ordered By: NON STAFF on 09-10-2023 Eosinophils (Bld) [#/Vol] 0.1 10*3/uL 0.0-0.45 [facility] Eosinophils/100 WBC Auto (Bl d)Ordered By: NON STAFF on 09-10-2023 Eosinophils/100 WBC (Bld) 0.9 % . [facility] Erythrocyte distribution wid th Auto (RBC) [Ratio]Ordered By: NON STAFF on 09-10-2023 Erythrocyte distribution width (RBC) [Ratio] 14.6 % 11.9-15.3 [facility] Globulin Calc (S) [Mass/Vol] Ordered By: NON STAFF on 09-10-2023 Globulin (S) [Mass/Vol] 2.2 g/dL [facility] Hematocrit Auto (Bld) [Volum e fraction]Ordered By: NON STAFF on 09-10-2023 Hematocrit (Bld) [Volume fraction] 40.3 % 34.0-46.4 [facility] Hemoglobin [Mass/volume] in BloodOrdered By: NON STAFF on 09-10-2023 Hemoglobin (Bld) [Mass/Vol] 13.3 g/dL 11.8-15.4 [facility] Leukocytes [#/volume] correc steff for nucleated erythrocytes in Blood by Automated counOrdered By: NON STAFF on 09-10-2023 WBC corrected for nucl RBC Auto (Bld) [#/Vol] 9.6 10*3/uL 3.8-11.6 [facility] Lymphocytes Auto (Bld) [#/Vo l]Ordered By: NON STAFF on 09-10-2023 Lymphocytes (Bld) [#/Vol] 2.4 10*3/uL 1.00-4.8 [facility] Lymphocytes/100 WBC Auto (Bl d)Ordered By: NON STAFF on 09-10-2023 Lymphocytes/100 WBC (Bld) 24.6 % . [facility] MCH Auto (RBC) [Entitic mass ]Ordered By: NON STAFF on 09-10-2023 MCH (RBC) [Entitic mass] 26.5 pg 24.7-34.3 [facility] MCHC Auto (RBC) [Mass/Vol]Or dered By: NON STAFF on 09-10-2023 MCHC (RBC) [Mass/Vol] 33.1 g/dL 32.0-35.0 [facility] MCV Auto (RBC) [Entitic vol] Ordered By: NON STAFF on 09-10-2023 MCV (RBC) [Entitic vol] 80.1 fL 80-100 [facility] Monocytes Auto (Bld) [#/Vol] Ordered By: NON STAFF on 09-10-2023 Monocytes (Bld) [#/Vol] 0.6 10*3/uL 0.0-0.8 [facility] Monocytes/100 WBC Auto (Bld) Ordered By: NON STAFF on 09-10-2023 Monocytes/100 WBC (Bld) 6.8 % . [facility] Neutrophils Auto (Bld) [#/Vo l]Ordered By: NON STAFF on 09-10-2023 Neutrophils (Bld) [#/Vol] 6.4 10*3/uL 1.8-7.7 [facility] Neutrophils/100 WBC Auto (Bl d)Ordered By: NON STAFF on 09-10-2023 Neutrophils/100 WBC (Bld) 67.1 % . [facility] No Panel InformationOrdered By: NON STAFF on 09-10-2023 Estimated GFR (CKD-EPI) > 60.0 mL/Min [facility] Creatinine Clearance (Chem N/A [facility] Nucleated erythrocytes [Pres ence] in Blood by Automated countOrdered By: NON STAFF on 09-10-2023 Nucleated RBC Auto Ql (Bld) 0.1 /100{WBC} 0-0.5 [facility] Platelet mean volume Auto (B ld) [Entitic vol]Ordered By: NON STAFF on 09-10-2023 Platelet mean volume (Bld) [Entitic vol] 7.1 fL 6.3-10.7 [facility] Platelets Auto (Bld) [#/Vol] Ordered By: NON STAFF on 09-10-2023 Platelets (Bld) [#/Vol] 163 10*3/uL 150-450 [facility] Protein [Mass/volume] in Ser um or PlasmaOrdered By: NON STAFF on 09-10-2023 Protein [Mass/Vol] 6.2 g/dL 6.4-8.9 [facility] RBC Auto (Bld) [#/Vol]Ordere d By: NON STAFF on 09-10-2023 RBC (Bld) [#/Vol] 5.03 10*6/uL 3.60-5.00 [facility] Serum or plasma albumin/glob ulin mass ratioOrdered By: NON STAFF on 09-10-2023 Albumin/Globulin [Mass ratio] 1.8 {ratio} [facility] Serum or plasma non-glucuron idated bilirubin measurement (mass/volume)Ordered By: NON STAFF on 09-10-2023 Bilirubin.indirect [Mass/Vol] 0.6 mg/dL [facility] WBC Auto (Bld) [#/Vol]Ordere d By: NON STAFF on 09-10-2023 WBC (Bld) [#/Vol] 9.6 10*3/uL 3.8-11.6 [facility] Potassium [Moles/volume] in Serum or PlasmaOrdered By: Jabari Celeste on 10-19-2022 Potassium [Moles/Vol] 3.9 mmol/L 3.5-5.1 [facility] Albumin [Mass/volume] in Ser um or PlasmaOrdered By: Jabari Celeste on 10-14-2022 Albumin [Mass/Vol] 3.7 g/dL 3.2-5.5 [facility] Alkaline phosphatase [Enzyma tic activity/volume] in Serum or PlasmaOrdered By: Jabari Celeste on 10-14-2022 ALP [Catalytic activity/Vol] 42 U/L 32-92 [facility] Aspartate aminotransferase [ Enzymatic activity/volume] in Serum or PlasmaOrdered By: Jabari Celeste on 10-14-2022 AST [Catalytic activity/Vol] 13 U/L 10-42 [facility] Basophils Auto (Bld) [#/Vol] Ordered By: Jabari Celeste on 10-14-2022 Basophils (Bld) [#/Vol] 0.0 10*3/uL 0.0-0.2 [facility] Basophils/100 WBC Auto (Bld) Ordered By: Jabari Celeste on 10-14-2022 Basophils/100 WBC (Bld) 0.5 % . [facility] Bilirubin.total [Mass/volume ] in Serum or PlasmaOrdered By: Jabari Celeste on 10-14-2022 Bilirubin [Mass/Vol] 0.6 mg/dL 0.3-1.2 [facility] Calcium [Mass/volume] in Ser um or PlasmaOrdered By: Jabari Celeste on 10-14-2022 Calcium [Mass/Vol] 8.6 mg/dL 8.2-10.2 [facility] Carbon dioxide, total [Moles /volume] in Serum or PlasmaOrdered By: Jabari Celeste on 10-14-2022 CO2 [Moles/Vol] 28.0 mmol/L 22.0-30.0 [facility] Chloride [Moles/volume] in S luz maria or PlasmaOrdered By: Jabari Celeste on 10-14-2022 Chloride [Moles/Vol] 103 mmol/L 95-114 [facility] Cholesterol [Mass/volume] in Serum or PlasmaOrdered By: Jabari Celeste on 10-14-2022 Cholesterol [Mass/Vol] 197 mg/dL 140-200 [facility] Comment on above: Chol less than 200 m g/dl low riskChol 201-239 mg/dl borderline riskChol 240 mg/dl and greater high risk Cholesterol in LDL Calc [Mas s/Vol]Ordered By: Jabari Celeste on 10-14-2022 Cholesterol in LDL [Mass/Vol] 115 mg/dL 0-100 [facility] Comment on above: LDL ATP III CLASSIFI CATIONLDL less than 100 mg/dL OptimalLDL 100-129 mg/dL Near or above optimalLDL 130-159 mg/dL Borderline highLDL 160-189 mg/dL HighLDL greater than 189 mg/dL Very high Cholesterol in VLDL Calc [Ma ss/Vol]Ordered By: Jabari Celeste on 10-14-2022 Cholesterol in VLDL [Mass/Vol] 21 mg/dL [facility] Creatinine and Glomerular fi ltration rate.predicted panel (S/P/Bld)Ordered By: Jabari Celeste on 10-14-2022 Creatinine [Mass/Vol] 0.71 mg/dL 0.44-1.03 [facility] Eosinophils Auto (Bld) [#/Vo l]Ordered By: Jabari Celeste on 10-14-2022 Eosinophils (Bld) [#/Vol] 0.2 10*3/uL 0.0-0.45 [facility] Eosinophils/100 WBC Auto (Bl d)Ordered By: Jabari Celeste on 10-14-2022 Eosinophils/100 WBC (Bld) 2.1 % . [facility] Erythrocyte distribution wid th Auto (RBC) [Ratio]Ordered By: Jabari Celeste on 10-14-2022 Erythrocyte distribution width (RBC) [Ratio] 15.5 % 11.9-15.3 [facility] Estimated glomerular filtrat ion rate (GFR) non- AmericanOrdered By: Jabari Celeste on 10-14-2022 GFR/1.73 sq M.predicted among non-blacks MDRD (S/P/Bld) [Vol rate/Area] > 60 mL/Min [facility] Globulin Calc (S) [Mass/Vol] Ordered By: Jabari Celeste on 10-14-2022 Globulin (S) [Mass/Vol] 2.6 g/dL [facility] Glucose [Mass/volume] in Ser um or PlasmaOrdered By: Jabari Celeste on 10-14-2022 Glucose [Mass/Vol] 74 mg/dL 70-100 [facility] Comment on above: ADA recommended refe rence rangeRandom Glucose Reference Range is dependent on time and content of last meal. Glucose of more than 200 mg/dL in a nonstressed, ambulatory subject supports the diagnosis of Diabetes Mellitus. Hematocrit Auto (Bld) [Volum e fraction]Ordered By: Jabari Celeste on 10-14-2022 Hematocrit (Bld) [Volume fraction] 42.0 % 34.0-46.4 [facility] Hemoglobin [Mass/volume] in BloodOrdered By: Jabari Celeste on 10-14-2022 Hemoglobin (Bld) [Mass/Vol] 13.6 g/dL 11.8-15.4 [facility] Leukocytes [#/volume] correc steff for nucleated erythrocytes in Blood by Automated counOrdered By: Jabari Celeste on 10-14-2022 WBC corrected for nucl RBC Auto (Bld) [#/Vol] 9.0 10*3/uL 3.8-11.6 [facility] Lymphocytes Auto (Bld) [#/Vo l]Ordered By: Jabari Celeste on 10-14-2022 Lymphocytes (Bld) [#/Vol] 2.0 10*3/uL 1.00-4.8 [facility] Lymphocytes/100 WBC Auto (Bl d)Ordered By: Jabari Celeste on 10-14-2022 Lymphocytes/100 WBC (Bld) 22.7 % . [facility] MCH Auto (RBC) [Entitic mass ]Ordered By: Jabari Celeste on 10-14-2022 MCH (RBC) [Entitic mass] 25.7 pg 24.7-34.3 [facility] MCHC Auto (RBC) [Mass/Vol]Or dered By: Jabari Celeste on 10-14-2022 MCHC (RBC) [Mass/Vol] 32.3 g/dL 32.0-35.0 [facility] MCV Auto (RBC) [Entitic vol] Ordered By: Jabari Celeste on 10-14-2022 MCV (RBC) [Entitic vol] 79.7 fL 80-100 [facility] Monocytes Auto (Bld) [#/Vol] Ordered By: Jabari Celeste on 10-14-2022 Monocytes (Bld) [#/Vol] 0.7 10*3/uL 0.0-0.8 [facility] Monocytes/100 WBC Auto (Bld) Ordered By: Jabari Celeste on 10-14-2022 Monocytes/100 WBC (Bld) 7.7 % . [facility] Neutrophils Auto (Bld) [#/Vo l]Ordered By: Jabari Celeste on 10-14-2022 Neutrophils (Bld) [#/Vol] 6.0 10*3/uL 1.8-7.7 [facility] Neutrophils/100 WBC Auto (Bl d)Ordered By: Jabari Celeste on 10-14-2022 Neutrophils/100 WBC (Bld) 67.0 % . [facility] No Panel InformationOrdered By: Jabari Celeste on 10-14-2022 25-Hydroxy Vitamin D Total 19.9 ng/mL 30-100 [facility] Comment on above: VITAMIN D STATUS 25( [place])VITAMIN D RANGE (ng/mL) Deficient <20 Insufficient 20 to <30Sufficient 30 to 100Reference: Larisa MF,Marti NC, Emmanuel SMITH, et al. Evaluation,treatment, and prevention of vitamin D deficiency; an Endocrine Society clinical practice guideline. JCEM. 2010; 96(7):1911-30. Estimated GFR () > 60 mL/Min [facility] Comment on above: GFR estimated refere nce range: According to KDOQI guidelines, <60 ml/min/1.73m2 is sufficient to diagnose a patient with chronic kidney disease. Pharmacy Creatinine Clearance (Chem N/A [facility] Nucleated erythrocytes [Pres ence] in Blood by Automated countOrdered By: Jabari Celeste on 10-14-2022 Nucleated RBC Auto Ql (Bld) 0.1 /100{WBC} 0-0.5 [facility] Platelet mean volume Auto (B ld) [Entitic vol]Ordered By: Jabari Celeste on 10-14-2022 Platelet mean volume (Bld) [Entitic vol] 7.7 fL 6.3-10.7 [facility] Platelets Auto (Bld) [#/Vol] Ordered By: Jabari Celeste on 10-14-2022 Platelets (Bld) [#/Vol] 195 10*3/uL 150-450 [facility] Potassium [Moles/volume] in Serum or PlasmaOrdered By: Jabari Celeste on 10-14-2022 Potassium [Moles/Vol] 2.9 mmol/L 3.5-5.1 [facility] Comment on above: Results calledat 113 8 on 10/14/22 --- 10/14/22 1142 ---K previously reported as: 2.9 *L mmol/L Protein [Mass/volume] in Ser um or PlasmaOrdered By: Jabari Celeste on 10-14-2022 Protein [Mass/Vol] 6.3 g/dL 6.1-7.9 [facility] [facility] RBC Auto (Bld) [#/Vol]Ordere d By: Jabari Celeste on 10-14-2022 RBC (Bld) [#/Vol] 5.27 10*6/uL 3.60-5.00 [facility] Serum or plasma alanine da silva otransferase measurement without P-5'-P (enzymatic activiOrdered By: Jabari Celeste on 10-14-2022 ALT No additional P-5'-P [Catalytic activity/Vol] 12 U/L 10-60 [facility] Serum or plasma albumin/glob ulin mass ratioOrdered By: Jabari Celeste on 10-14-2022 Albumin/Globulin [Mass ratio] 1.4 {ratio} [facility] Serum or plasma anion gap de terminationOrdered By: Jabari Celeste on 10-14-2022 Anion gap [Moles/Vol] 10.9 mmol/L 6.0-15.0 [facility] Serum or plasma high density lipoprotein (HDL) cholesterol measurementOrdered By: Jabari Celeste on 10-14-2022 Cholesterol in HDL [Mass/Vol] 60 mg/dL 35-85 [facility] Comment on above: HDL CHOL ATP-III CLA SSIFICATION Cardiovascular RiskHDL > or equal to 60 mg/dL LOWHDL < 40 mg/dL HIGH Serum or plasma total choles terol/high density lipoprotein (HDL) cholesterol mass ratOrdered By: Jabari Celeste on 10-14-2022 Cholesterol.total/Chol esterol in HDL [Mass ratio] 3.3 {ratio} <5.0 [facility] Sodium [Moles/volume] in Ser um or PlasmaOrdered By: Jabari Celeste on 10-14-2022 Sodium [Moles/Vol] 139 mmol/L 136-146 [facility] TSH DL <= 0.005 mIU/L QnOrde red By: Jabari Celeste on 10-14-2022 TSH Qn 2.25 m[IU]/L 0.45-5.33 [facility] Triglyceride [Mass/volume] i n Serum or PlasmaOrdered By: Jabari Celeste on 10-14-2022 Triglyceride [Mass/Vol] 108 mg/dL 35-149 [facility] Comment on above: TRIG ATP III CLASSIF ICATIONTRIG less than 150 mg/dL NormalTRIG 150-199 mg/dL Borderline highTRIG 200-500 mg/dL High TRIG greater than 500 mg/dL Very highStandard traceable to the Center for Disease Conrtrol and Prevention (CDC) test method. Urea nitrogen [Mass/volume] in Serum or PlasmaOrdered By: Jabari Celeste on 10-14-2022 Urea nitrogen [Mass/Vol] 7 mg/dL 9- [facility] WBC Auto (Bld) [#/Vol]Ordere d By: Jabari Celeste on 10-14-2022 WBC (Bld) [#/Vol] 9.0 10*3/uL 3.8-11.6 [facility] Albumin [Mass/volume] in Ser um or PlasmaOrdered By: Jabari Celeste on 04-09-2022 Albumin [Mass/Vol] 3.4 g/dL 3.2-5.5 [facility] Basophils Auto (Bld) [#/Vol] Ordered By: Jabari Celeste on 04-09-2022 Basophils (Bld) [#/Vol] 0.1 10*3/uL 0.0-0.2 [facility] Basophils/100 WBC Auto (Bld) Ordered By: Jabari Celeste on 04-09-2022 Basophils/100 WBC (Bld) 0.8 % . [facility] Blood hemoglobin measurement (mass/volume)Ordered By: Jabari Celeste on 04-09-2022 Hemoglobin (Bld) [Mass/Vol] 13.5 g/dL 11.8-15.4 [facility] Blood leukocytes automated c ount (number/volume)Ordered By: Jabari Celeste on 04-09-2022 WBC (Bld) [#/Vol] 9.3 10*3/uL 4.5-11.0 [facility] Cholesterol [Mass/volume] in Serum or PlasmaOrdered By: Jabari Celeste on 04-09-2022 Cholesterol [Mass/Vol] 179 mg/dL 140-200 [facility] Comment on above: Chol less than 200 m g/dl low risk Chol 201-239 mg/dl borderline risk Chol 240 mg/dl and greater high risk Cholesterol in LDL Calc [Mas s/Vol]Ordered By: Jabari Celeste on 04-09-2022 Cholesterol in LDL [Mass/Vol] 104 mg/dL 0-100 [facility] Comment on above: LDL ATP III CLASSIFI CATION LDL less than 100 mg/dL Optimal LDL 100-129 mg/dL Near or above optimal LDL 130-159 mg/dL Borderline high LDL 160-189 mg/dL High LDL greater than 189 mg/dL Very high Cholesterol in VLDL Calc [Ma ss/Vol]Ordered By: Jabari Celeste on 04-09-2022 Cholesterol in VLDL [Mass/Vol] 17 mg/dL [facility] Creatinine and Glomerular fi ltration rate.predicted panel (S/P/Bld)Ordered By: Jabari Celeste on 04-09-2022 Creatinine [Mass/Vol] 0.74 mg/dL 0.44-1.03 [facility] Eosinophils Auto (Bld) [#/Vo l]Ordered By: Jabari Celeste on 04-09-2022 Eosinophils (Bld) [#/Vol] 0.2 10*3/uL 0.0-0.45 [facility] Eosinophils/100 WBC Auto (Bl d)Ordered By: Jabari Celeste on 04-09-2022 Eosinophils/100 WBC (Bld) 1.8 % . [facility] Erythrocyte distribution wid th Auto (RBC) [Ratio]Ordered By: Jabari Celeste on 04-09-2022 Erythrocyte distribution width (RBC) [Ratio] 14.7 % 11.9-15.3 [facility] Estimated glomerular filtrat ion rate (GFR) non- AmericanOrdered By: Jabari Celeste on 04-09-2022 GFR/1.73 sq M.predicted among non-blacks MDRD (S/P/Bld) [Vol rate/Area] > 60 mL/Min [facility] Globulin Calc (S) [Mass/Vol] Ordered By: Jabari Celeste on 04-09-2022 Globulin (S) [Mass/Vol] 2.7 g/dL [facility] Hematocrit Auto (Bld) [Volum e fraction]Ordered By: Jabari Celeste on 04-09-2022 Hematocrit (Bld) [Volume fraction] 41.6 % 34.0-46.4 [facility] Laboratory - Hematology and Cell countsOrdered By: Jabari Celeste on 04-09-2022 Nucleated RBC/100 WBC (Bld) [Ratio] 0.0 % 0-0.5 [facility] Lymphocytes Auto (Bld) [#/Vo l]Ordered By: Jabari Celeste on 04-09-2022 Lymphocytes (Bld) [#/Vol] 2.0 10*3/uL 1.00-4.8 [facility] Lymphocytes/100 WBC Auto (Bl d)Ordered By: Jabari Celeste on 04-09-2022 Lymphocytes/100 WBC (Bld) 21.5 % . [facility] MCH Auto (RBC) [Entitic mass ]Ordered By: Jabari Celeste on 04-09-2022 MCH (RBC) [Entitic mass] 26.1 pg 24.7-34.3 [facility] MCHC Auto (RBC) [Mass/Vol]Or dered By: Jabari Celeste on 04-09-2022 MCHC (RBC) [Mass/Vol] 32.4 g/dL 32.0-35.0 [facility] MCV Auto (RBC) [Entitic vol] Ordered By: Jabari Celeste on 04-09-2022 MCV (RBC) [Entitic vol] 80.7 fL 80-100 [facility] Monocytes Auto (Bld) [#/Vol] Ordered By: Jabari Celeste on 04-09-2022 Monocytes (Bld) [#/Vol] 0.7 10*3/uL 0.0-0.8 [facility] Monocytes/100 WBC Auto (Bld) Ordered By: Jabari Celeste on 04-09-2022 Monocytes/100 WBC (Bld) 7.1 % . [facility] Neutrophils Auto (Bld) [#/Vo l]Ordered By: Jabari Celeste on 04-09-2022 Neutrophils (Bld) [#/Vol] 6.4 10*3/uL 1.8-7.7 [facility] Neutrophils/100 WBC Auto (Bl d)Ordered By: Jabari Celeste on 04-09-2022 Neutrophils/100 WBC (Bld) 68.8 % . [facility] No Panel InformationOrdered By: Jabari Celeste on 04-09-2022 25-Hydroxy Vitamin D Total 99.1 ng/mL 30-100 [facility] Comment on above: VITAMIN D STATUS 25( [place])VITAMIN D RANGE (ng/mL) Deficient <20 Insufficient 20 to <30 Sufficient 30 to 100 Reference: Larisa MF,Marti NC, Emmanuel SMITH, et al. Evaluation,treatment, and prevention of vitamin D deficiency; an Endocrine Society clinical practice guideline. JCEM. 2010; 96(7):1911-30. Estimated GFR () > 60 mL/Min [facility] Comment on above: GFR estimated refere nce range: According to KDOQI guidelines, <60 ml/min/1.73m2 is sufficient to diagnose a patient with chronic kidney disease. Pharmacy Creatinine Clearance (Chem N/A [facility] Platelet mean volume Auto (B ld) [Entitic vol]Ordered By: Jabari Celeste on 04-09-2022 Platelet mean volume (Bld) [Entitic vol] 7.8 fL 6.3-10.7 [facility] Platelets Auto (Bld) [#/Vol] Ordered By: Jabari Celeste on 04-09-2022 Platelets (Bld) [#/Vol] 230 10*3/uL 150-450 [facility] Protein [Mass/volume] in Ser um or PlasmaOrdered By: Jabari Celeste on 04-09-2022 Protein [Mass/Vol] 6.1 g/dL 6.1-7.9 [facility] RBC Auto (Bld) [#/Vol]Ordere d By: Jabari Celeste on 04-09-2022 RBC (Bld) [#/Vol] 5.16 10*6/uL 3.60-5.00 [facility] Serum or plasma alanine da silva otransferase measurement without P-5'-P (enzymatic activiOrdered By: Jabari Celeste on 04-09-2022 ALT No additional P-5'-P [Catalytic activity/Vol] 7 U/L 10-60 [facility] Serum or plasma albumin/glob ulin mass ratioOrdered By: Jabari Celeste on 04-09-2022 Albumin/Globulin [Mass ratio] 1.3 {ratio} [facility] Serum or plasma alkaline genevieve sphatase measurement (enzymatic activity/volume)Ordered By: Jabari Celeste on 04-09-2022 ALP [Catalytic activity/Vol] 35 U/L 32-92 [facility] Serum or plasma aspartate am inotransferase measurement (enzymatic activity/volume)Ordered By: Jabari Celeste on 04-09-2022 AST [Catalytic activity/Vol] 13 U/L 10-42 [facility] Serum or plasma calcium live urement (mass/volume)Ordered By: Jabari Celeste on 04-09-2022 Calcium [Mass/Vol] 8.9 mg/dL 8.2-10.2 [facility] Serum or plasma chloride lyric surement (moles/volume)Ordered By: Jabari Celeste on 04-09-2022 Chloride [Moles/Vol] 107 mmol/L 95-114 [facility] Serum or plasma glucose live urement (mass/volume)Ordered By: Jabari Celeste on 04-09-2022 Glucose [Mass/Vol] 82 mg/dL 70-100 [facility] Comment on above: ADA recommended refe rence range Random Glucose Reference Range is dependent on time and content of last meal. Glucose of more than 200 mg/dL in a nonstressed, ambulatory subject supports the diagnosis of Diabetes Mellitus. Serum or plasma high density lipoprotein (HDL) cholesterol measurementOrdered By: Jabari Celeste on 04-09-2022 Cholesterol in HDL [Mass/Vol] 58 mg/dL 35-85 [facility] Comment on above: HDL CHOL ATP-III CLA SSIFICATION Cardiovascular Risk HDL > or equal to 60 mg/dL LOW HDL < 40 mg/dL HIGH Serum or plasma potassium me asurement (moles/volume)Ordered By: Jabari Celeste on 04-09-2022 Potassium [Moles/Vol] 3.2 mmol/L 3.5-5.1 [facility] Serum or plasma sodium measu rement (moles/volume)Ordered By: Jabari Celeset on 04-09-2022 Sodium [Moles/Vol] 140 mmol/L 136-146 [facility] Serum or plasma total biliru bin measurement (mass/volume)Ordered By: Jabari Celeste on 04-09-2022 Bilirubin [Mass/Vol] 0.3 mg/dL 0.3-1.2 [facility] Serum or plasma total carbon dioxide measurement (moles/volume)Ordered By: Jabari Celeste on 04-09-2022 CO2 [Moles/Vol] 26.7 mmol/L 22.0-30.0 [facility] Serum or plasma total choles terol/high density lipoprotein (HDL) cholesterol mass ratOrdered By: Jabari Celeste on 04-09-2022 Cholesterol.total/Chol esterol in HDL [Mass ratio] 3.1 {ratio} <5.0 [facility] Serum or plasma urea nitroge n measurement (mass/volume)Ordered By: Jabari Celeste on 04-09-2022 Urea nitrogen [Mass/Vol] 10 mg/dL 9-23 [facility] Triglyceride [Mass/volume] i n Serum or PlasmaOrdered By: Jabari Celeste on 04-09-2022 Triglyceride [Mass/Vol] 86 mg/dL 35-149 [facility] Comment on above: TRIG ATP III [...] PANDYA M.D. Electronically SignedOut By FERMIN PANDYA MD/[facility] Microscopic Description:Microscopic analysis shows a symmetric, papular proliferation of blandmelanocytes in dermis. Dermal melanocytes mature with increasing depth indermis and show no cytologic atypia. An area with horizontally orientedcollagen and vertically oriented vessels is present.Clinical History:Malignant Melanoma. Excision. ([facility]). Specimens Submitted As:A: SKIN, RT SUP. MED UPR BACK Gross Description:Received in formalin is one barrera-brown, ellipsoid piece of skin [id number]. The specimen is inked and embedded in toto in fourteen blocks. dcp/08/04/2018 Normal [facility] Comment on above: Performed By: #### D ####Dermatopathology Dermatopathologyon 8 Dermatopathology 1 Pathologist: COOPER GALEANOate of Procedure: 07/25/2018Date Received: 07/25/2018Submitting Physician: STACY MOODY MDLocation: ADERM Copy To/Referring/Attending:COREY UBRANO MD FINAL DIAGNOSIS1 [facility], [facility] [id number] (BX: 06/30/2018)SKIN, RT SUP MED UPR BACK, [...] PANDYA M.D. CANCER SUMMARY REPORTA. 1 [facility], [facility] [id number] (BX:06/30/2018): Procedure: Not specifiedSpecimen Laterality: RightTumor Site: [...] vs. DysplasticNevus Specimens Submitted As:A: 1 [facility], [facility] [id number] (BX:06/30/2018) Gross Description:Received for consultation from [facility] is oneslide labeled [id number] (BX: 06/30/2018) along with the corresponding pathologyreport. Slide/Block Description1 SLIDE, [id number].Keep Slides: N Slides Returned: NPersonal Consult: N Normal [facility] Comment on above: Performed By: #### D ####Dermatopathology Vital Signs Date Time Vital Sign Value Performing Clinician Facility 04-03-2025 09:28-0400 Body mass index (BMI) [Ratio] 28.17 kg/m2 Gennaro Londono [place] Work Phone: [facility] 04-03-2025 09:28-0400 Body weight 69.85 kg Gennaro Spring [place] Work Phone: [facility] 04-03-2025 09:28-0400 Diastolic blood pressure 66 mm[Hg] Gennaro Blaser [place] Work Phone: [facility] 04-03-2025 09:28-0400 Systolic blood pressure 112 mm[Hg] Gennaro Londono DO Work Phone: [facility] 02-13-2025 09:00-0400 Body height 157.5 cm Jabari Celeste DO Work Phone: [facility] 02-13-2025 09:00-0400 Body mass index (BMI) [Ratio] 28.17 kg/m2 Jabari Roula DO Work Phone: [facility] 02-13-2025 09:00-0400 Body weight 69.85 kg Jabari Eduardoman DO Work Phone: [facility] 02-13-2025 09:00-0400 Diastolic blood pressure 70 mm[Hg] Jabari Celeste DO Work Phone: [facility] 02-13-2025 09:00-0400 Heart rate 104 /min Jabari Celeste DO Work Phone: [facility] 02-13-2025 09:00-0400 SaO2% (BldA) [Mass fraction] 91 % Jabari Celeste DO Work Phone: [facility] Comment on above: wearing O2@ 5 L per [place] 02-13-2025 09:00-0400 Systolic blood pressure 98 mm[Hg] Jabari Celeste DO Work Phone: [facility] 01-15-2025 07:30-0400 Heart rate 85 /min Jabari Celeste DO Work Phone: [facility] 01-15-2025 07:30-0400 Inhaled oxygen flow rate 5 L/min Jabari Celeste DO Work Phone: [facility] 01-15-2025 07:30-0400 Respiratory rate 45 /min Jabari Celeste DO Work Phone: [facility] 01-15-2025 07:30-0400 SaO2% (BldA) [Mass fraction] 97 % Jaabri Celeste DO Work Phone: [facility] 01-15-2025 07:20-0400 Diastolic blood pressure 75 mm[Hg] Jabari Celeste DO Work Phone: [facility] 01-15-2025 07:20-0400 Systolic blood pressure 104 mm[Hg] Jabari Roula DO Work Phone: [facility] 01-15-2025 04:02-0400 Body height 157.48 cm Jabari Celeste DO Work Phone: [facility] 01-15-2025 04:02-0400 Body temperature 98.3 [degF] Jabari Celeste DO Work Phone: [facility] 01-15-2025 04:02-0400 Body weight 68.03 kg Jabari Roula DO Work Phone: [facility] 11-28-2024 13:43-0400 Body height 157.48 cm Jabari Celeste DO Work Phone: [facility] 11-28-2024 13:43-0400 Body mass index (BMI) [Ratio] 27.6 kg/m2 Jabari Celeste DO Work Phone: [facility] 11-28-2024 13:43-0400 Body weight 68.49 kg Jabariuday Celeste DO Work Phone: [facility] 11-28-2024 13:43-0400 Diastolic blood pressure 79 mm[Hg] Jabari Celeste DO Work Phone: [facility] 11-28-2024 13:43-0400 Heart rate 111 /min Jabari Celeste DO Work Phone: [facility] 11-28-2024 13:43-0400 Inhaled oxygen flow rate 5 L/min Jabari Celeste DO Work Phone: [facility] 11-28-2024 13:43-0400 Respiratory rate 20 /min Jabari Celeste DO Work Phone: [facility] 11-28-2024 13:43-0400 SaO2% (BldA) [Mass fraction] 95 % Jabari Roula DO Work Phone: [facility] 11-28-2024 13:43-0400 Systolic blood pressure 128 mm[Hg] Jabari Celeste DO Work Phone: [facility] 10-09-2024 09:37-0500 Body height 157.5 cm Jabari Celeste DO Work Phone: [facility] 10-09-2024 09:37-0500 Body mass index (BMI) [Ratio] 27.25 kg/m2 Jabari Celeste DO Work Phone: [facility] 10-09-2024 09:37-0500 Body weight 67.59 kg Jabari Celeste DO Work Phone: [facility] 10-09-2024 09:37-0500 Diastolic blood pressure 72 mm[Hg] Jabari Celeste DO Work Phone: [facility] 10-09-2024 09:37-0500 Heart rate 96 /min Jabari Roula DO Work Phone: [facility] 10-09-2024 09:37-0500 SaO2% (BldA) [Mass fraction] 95 % Jabariuday Celeste DO Work Phone: [facility] 10-09-2024 09:37-0500 Systolic blood pressure 128 mm[Hg] Jabari Celeste DO Work Phone: [facility] 10-06-2024 12:20-0500 Body temperature 98.4 [degF] Jabari Celeste DO Work Phone: [facility] 10-06-2024 12:20-0500 Diastolic blood pressure 67 mm[Hg] Jabari Celeste DO Work Phone: [facility] 10-06-2024 12:20-0500 Heart rate 111 /min Jabari Celeste DO Work Phone: [facility] 10-06-2024 12:20-0500 Inhaled oxygen flow rate 5 L/min Jabari Celeste DO Work Phone: [facility] 10-06-2024 12:20-0500 Respiratory rate 18 /min Jabari Celeste DO Work Phone: [facility] 10-06-2024 12:20-0500 SaO2% (BldA) [Mass fraction] 98 % Jabari Celeste DO Work Phone: [facility] 10-06-2024 12:20-0500 Systolic blood pressure 112 mm[Hg] Jabari Celeste DO Work Phone: [facility] 10-06-2024 06:00-0500 Body weight 69.8 kg Jabari Celeste DO Work Phone: [facility] 10-05-2024 16:24-0500 Body height 157.48 cm Jabari Celeste DO Work Phone: [facility] 10-04-2024 17:19-0500 Body temperature 98.2 [degF] Jabari Celeste DO Work Phone: [facility] 10-04-2024 17:19-0500 Diastolic blood pressure 80 mm[Hg] Jabari Celeste DO Work Phone: [facility] 10-04-2024 17:19-0500 Heart rate 85 /min Jabari Celeste DO Work Phone: [facility] 10-04-2024 17:19-0500 Inhaled oxygen flow rate 5 L/min Jabari Celeste DO Work Phone: [facility] 10-04-2024 17:19-0500 Respiratory rate 16 /min Jabari Celeste DO Work Phone: [facility] 10-04-2024 17:19-0500 SaO2% (BldA) [Mass fraction] 97 % Jabari Celeste DO Work Phone: [facility] 10-04-2024 17:19-0500 Systolic blood pressure 127 mm[Hg] Jabari Celeste DO Work Phone: [facility] 10-04-2024 12:24-0500 Body height 157.48 cm Jabari Celeste DO Work Phone: [facility] 10-04-2024 12:24-0500 Body weight 72 kg Jabari Celeste DO Work Phone: [facility] 09-19-2024 08:32-0500 Body height 157.5 cm Gennaro Londono DO Work Phone: [facility] 09-19-2024 08:32-0500 Body mass index (BMI) [Ratio] 27.25 kg/m2 Gennaro Londono DO Work Phone: [facility] 09-19-2024 08:32-0500 Body weight 67.59 kg Gennaro Londono DO Work Phone: [facility] 09-19-2024 08:32-0500 Diastolic blood pressure 70 mm[Hg] Gennaro Londono DO Work Phone: [facility] 09-19-2024 08:32-0500 Systolic blood pressure 124 mm[Hg] Gennaro Londono DO Work Phone: [facility] 08-15-2024 11:32-0500 Body mass index (BMI) [Ratio] 27.44 kg/m2 Jc Astudillo LARDER COOK Work Phone: [facility] 08-15-2024 11:32-0500 Body weight 68.04 kg Jc Astudillo LARDER COOK Work Phone: [facility] 08-15-2024 11:32-0500 Diastolic blood pressure 64 mm[Hg] Jc Astudillo LARDER COOK Work Phone: [facility] 08-15-2024 11:32-0500 Heart rate 102 /min Jc Astudillo LARDER COOK Work Phone: [facility] 08-15-2024 11:32-0500 SaO2% (BldA) [Mass fraction] 89 % Jc Astudillo LARDER COOK Work Phone: [facility] 08-15-2024 11:32-0500 Systolic blood pressure 110 mm[Hg] Jc Cynthia LARDER COOK Work Phone: [facility] 06-14-2024 11:04-0400 Body height 157.5 cm Belkis Loffelmann PA-C Work Phone: [facility] 06-14-2024 11:04-0400 Body mass index (BMI) [Ratio] 28.35 kg/m2 Belkis Loffelmann PA-C Work Phone: [facility] 06-14-2024 11:04-0400 Body weight 70.3 kg Belkis Loffelmann PA-C Work Phone: [facility] Comment on above: with shoes 06-14-2024 11:04-0400 Diastolic blood pressure 68 mm[Hg] Belkis Loffelmann PA-C Work Phone: [facility] 06-14-2024 11:04-0400 Heart rate 97 /min Belkis Loffelmann PA-C Work Phone: [facility] 06-14-2024 11:04-0400 SaO2% (BldA) [Mass fraction] 96 % Belkis Loffelmann PA-C Work Phone: [facility] Comment on above: [place] 6L 06-14-2024 11:04-0400 Systolic blood pressure 96 mm[Hg] Belkis Loffelmann PA-C Work Phone: [facility] 05-15-2024 12:03-0400 Body height 157.5 cm Jabari Celeste DO Work Phone: [facility] 05-15-2024 12:03-0400 Body mass index (BMI) [Ratio] 28.35 kg/m2 Jabari Celeste DO Work Phone: [facility] 05-15-2024 12:03-0400 Body weight 70.31 kg Jabari Celeste DO Work Phone: [facility] 05-15-2024 12:03-0400 Diastolic blood pressure 78 mm[Hg] Jabari Celeste DO Work Phone: [facility] 05-15-2024 12:03-0400 Heart rate 105 /min Jabari Celeste DO Work Phone: [facility] 05-15-2024 12:03-0400 SaO2% (BldA) [Mass fraction] 96 % Jabari Celeste DO Work Phone: [facility] 05-15-2024 12:03-0400 Systolic blood pressure 118 mm[Hg] Jabari Celeste DO Work Phone: [facility] 05-12-2024 12:16-0400 Diastolic blood pressure 77 mm[Hg] DO Jabari Celeste Work Phone: [facility] 05-12-2024 12:16-0400 Heart rate 95 /min DO Jabariuday Celeste Work Phone: [facility] 05-12-2024 12:16-0400 Inhaled oxygen flow rate 5 L/min DO Jabari Celeste Work Phone: [facility] 05-12-2024 12:16-0400 Respiratory rate 18 /min DO Jabari Celeste Work Phone: [facility] 05-12-2024 12:16-0400 SaO2% (BldA) [Mass fraction] 96 % DO Jabari Celeste Work Phone: [facility] 05-12-2024 12:16-0400 Systolic blood pressure 130 mm[Hg] DO Jabari Celeste Work Phone: [facility] 05-12-2024 07:51-0400 Body temperature 98.2 [degF] DO Jabari Celeste Work Phone: [facility] 05-12-2024 05:03-0400 Body weight 74.6 kg DO Jabari Celeste Work Phone: [facility] 05-08-2024 13:45-0400 Body height 157.48 cm DO Jabari Celeste Work Phone: [facility] 04-13-2024 10:38-0400 Body height 157.48 cm Jabari Celeste DO Work Phone: [facility] 04-13-2024 10:38-0400 Body weight 70.3 kg Jabari Celeste DO Work Phone: [facility] 03-07-2024 13:58-0400 Body height 157.48 cm [facility] 03-07-2024 13:58-0400 Body mass index (BMI) [Ratio] 28.3 kg/m2 [facility] 03-07-2024 13:58-0400 Body temperature 99.3 [degF] [facility] 03-07-2024 13:58-0400 Body weight 70.3 kg [facility] 03-07-2024 13:58-0400 Diastolic blood pressure 70 mm[Hg] [facility] 03-07-2024 13:58-0400 Heart rate 104 /min [facility] 03-07-2024 13:58-0400 Inhaled oxygen flow rate 6 L/min [facility] 03-07-2024 13:58-0400 Respiratory rate 20 /min [facility] 03-07-2024 13:58-0400 SaO2% (BldA) [Mass fraction] 96 % [facility] 03-07-2024 13:58-0400 Systolic blood pressure 111 mm[Hg] [facility] 10-16-2023 12:00-0500 Body temperature 97.3 [degF] DO Jabariuday Celeste Work Phone: [facility] 10-16-2023 12:00-0500 Diastolic blood pressure 74 mm[Hg] DO Jabariuday Celeste Work Phone: [facility] 10-16-2023 12:00-0500 Heart rate 90 /min DO Jabari Celeste Work Phone: [facility] 10-16-2023 12:00-0500 Inhaled oxygen flow rate 5 L/min DO Jabari Celeste Work Phone: [facility] 10-16-2023 12:00-0500 Respiratory rate 18 /min DO Jabari Celeste Work Phone: [facility] 10-16-2023 12:00-0500 SaO2% (BldA) [Mass fraction] 95 % DO Jabari Celeste Work Phone: [facility] 10-16-2023 12:00-0500 Systolic blood pressure 126 mm[Hg] DO Jabari Celeste Work Phone: [facility] 10-16-2023 06:40-0500 Body weight 72.9 kg DO Jabari Celeste Work Phone: [facility] 10-13-2023 16:43-0500 Body height 157.48 cm DO aJbari Celeste Work Phone: [facility] 09-07-2023 14:15-0500 Body height 157.48 cm Chilo Santos Other [facility] 09-07-2023 14:15-0500 Body mass index (BMI) [Ratio] 28.35 kg/m2 Chilo Santos Other [employer] [facility] [employer] Other 09-07-2023 14:15-0500 Body temperature 98.3 [degF] Chilo Santos Other [employer] [facility] [employer] Other 09-07-2023 14:15-0500 Body weight 70.31 kg Chilo Santos Other [facility] [employer] Other 09-07-2023 14:15-0500 Body weight 70.3 kg DO Jabari Celeste Work Phone: [facility] 09-07-2023 14:15-0500 Diastolic blood pressure 83 mm[Hg] Christopher Danielle Other [facility] 09-07-2023 14:15-0500 Respiratory rate 20 /min Christopher Danielle Other [employer] Other 09-07-2023 14:15-0500 SaO2% (BldA) [Mass fraction] Christioner Danielle Other [facility] [employer] Other 09-07-2023 14:15-0500 Systolic blood pressure 130 mm[Hg] Adolfoopher Danielle Other [facility] 09-08-2022 15:00-0500 Body height 157.48 cm Christopher Danielle Other [email or web address] Other 09-08-2022 15:00-0500 Body mass index (BMI) [Ratio] 27.98 kg/m2 Christopher Danielle Other [facility] [employer] Other 09-08-2022 15:00-0500 Body temperature 98.8 [degF] Christioner Danielle Other [employer] Other 09-08-2022 15:00-0500 Body weight 69.4 kg Christopher Danielle Other [employer] Other 09-08-2022 15:00-0500 Diastolic blood pressure 78 mm[Hg] Christopher Danielle Other [employer] Other 09-08-2022 15:00-0500 Respiratory rate 20 /min Christopher Danielle Other [employer] Other 09-08-2022 15:00-0500 SaO2% (BldA) [Mass fraction] Joaquíner Danielle Other [employer] Other 09-08-2022 15:00-0500 Systolic blood pressure 134 mm[Hg] Joaquíner Danielle Other [employer] Other 03-10-2022 15:00-0400 Body height 157.48 cm Joaquíner Danielle Other [employer] Other 03-10-2022 15:00-0400 Body mass index (BMI) [Ratio] 28.71 kg/m2 Joaquíner Danielle Other [employer] Other 03-10-2022 15:00-0400 Body temperature 98.6 [degF] Chilo Hollingsworthdano Other [employer] Other 03-10-2022 15:00-0400 Body weight 71.22 kg Joaquíner Danielle Other [employer] Other 03-10-2022 15:00-0400 Diastolic blood pressure 72 mm[Hg] Joaquíner Danielle Other [employer] Other 03-10-2022 15:00-0400 Respiratory rate 20 /min Joaquíner Danielle Other [employer] Other 03-10-2022 15:00-0400 SaO2% (BldA) [Mass fraction] Joaquíner Danielle Other [employer] Other 03-10-2022 15:00-0400 Systolic blood pressure 112 mm[Hg] Joaquíner Danielle Other [employer] Other 08-26-2021 15:00-0500 Body height 157.48 cm Chilo Bergno Other [employer] Other 08-26-2021 15:00-0500 Body mass index (BMI) [Ratio] 28.71 kg/m2 Chilo Hollingsworthdano Other [employer] Other 08-26-2021 15:00-0500 Body temperature 98.6 [degF] Chilo Hollingsworthdano Other [employer] Other 08-26-2021 15:00-0500 Body weight 71.22 kg Chilo Hlolingsworthdano Other [employer] Other 08-26-2021 15:00-0500 Diastolic blood pressure 74 mm[Hg] Adolfoioner Danielle Other [employer] Other 08-26-2021 15:00-0500 Respiratory rate 20 /min Chilo Hollingsworthdano Other [employer] Other 08-26-2021 15:00-0500 SaO2% (BldA) [Mass fraction] Adolfosenia Hollingsworthdano Other [employer] Other 08-26-2021 15:00-0500 Systolic blood pressure 109 mm[Hg] Joaquíner Danielle Other [employer] Other Encounters Encounter Date Encounter Type Care Provider Facility Start: 04-11-2025 End: 04-11-2025 ambulatory JC ASTUDILLO Not Available Start: 04-05-2025 End: 04-05-2025 Patient encounter procedure Jul[facility] Work Phone: Start: 04-05-2025 End: 04-05-2025 ambulatory Jabari Celeste DO Work Phone: [facility] Work Phone: Start: 04-03-2025 End: 04-03-2025 Office [...] encounter status Jabari Celeste DO Work Phone: [facility] Healthcare Work Phone: Start: 02-13-2025 End: 02-13-2025 Periodic preventive med est patient 40-64yrs Jabari Celeste DO Work Phone: [facility] IM Comment on above: Encounter for [facility] health examination (Primary Dx); ILD (interstitial lung disease) (HCC); 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); Chronic hypoxemic respiratory failure (HCC); Supplemental oxygen dependent; Bilateral leg edema; Elevated LDL cholesterol level ; Vitamin D deficiency Start: 02-13-2025 End: 02-13-2025 ambulatory JABARI CELESTE Not Available Start: 02-07-2025 End: 02-11-2025 External Result Encounter Jabari Celeste DO Work Phone: [facility] External Department Unsolicited Start: 02-07-2025 End: 02-11-2025 External Result Encounter Jabari Celeste DO Work Phone: [facility] External Department Unsolicited Start: 02-07-2025 End: 02-07-2025 Patient encounter procedure Jabari Celeste DO -[facility] Start: 02-07-2025 End: 02-07-2025 ambulatory Jabari Celeste DO Work Phone: [facility] Work Phone: Start: 02-07-2025 Encounter for genera l adult medical examination without abnormal findings Jabari Celeste [facility] Start: 01-15-2025 End: 01-15-2025 Emergency department patient visit Jabari Celeste DO Work Phone: [facility]-Emergency Room Work Phone: Start: 01-01-2025 End: 01-01-2025 Patient encounter procedure Jabari Celeste DO Work Phone: [facility] Start: 01-01-2025 End: 01-01-2025 ambulatory Ernst Boone Facility:[facility] Start: 12-12-2024 End: 12-12-2024 Patient encounter procedure Jabari Celeste DO Work Phone: [facility] Start: 12-12-2024 End: 12-12-2024 ambulatory Jabari Celeste DO Work Phone: [facility] Work Phone: Start: 11-28-2024 End: 11-28-2024 ambulatory Jabari Celeste DO Work Phone: [facility] Work Phone: Start: 11-28-2024 End: 11-28-2024 Patient encounter procedure Jabari Celeste DO Work Phone: [facility] Work Phone: Start: 11-10-2024 End: 11-10-2024 Patient encounter procedure Jabari Celeste DO Work Phone: [facility] Work Phone: Start: 11-10-2024 End: 11-10-2024 ambulatory Jabari Celeste DO Work Phone: [facility] Work Phone: Start: 11-09-2024 End: 11-09-2024 Patient encounter procedure Jabari Celeste DO Work Phone: [facility] Start: 11-09-2024 End: 11-09-2024 ambulatory Jabari Celeste DO Work Phone: [facility] Work Phone: Start: 10-09-2024 End: 10-09-2024 [...] / Non-visit Raúl Celeste DO Work Phone: [facility] Work Phone: Start: 10-04-2024 End: 10-06-2024 ambulatory Paddy Wiggins Facility:[facility] Start: 10-04-2024 End: 10-06-2024 Evaluation and management of inpatient Jabari Celeste DO Work Phone: [facility] [place] [facility] Work Phone: Start: 10-04-2024 End: 10-06-2024 observation encounter Jabari Celeste DO Work Phone: [facility] Work Phone: Start: 09-27-2024 End: 09-27-2024 ambulatory Jabari Celeste DO Work Phone: [facility] Work Phone: Start: 09-27-2024 End: 09-27-2024 Departed Referred Jabari Celeste DO Work Phone: [facility] [place] Work Phone: Start: 09-19-2024 End: 09-19-2024 Patient encounter status Gennaro Londono DO Work Phone: [facility] Start: 09-19-2024 End: 09-19-2024 Periodic preventive med [...] Bamboo flowsheet Jabari Celeste DO Work Phone: [facility] Start: 08-15-2024 End: 08-15-2024 Bamboo flowsheet Jabari Celeste DO Work Phone: [facility] Start: 08-15-2024 End: 08-15-2024 Office outpatient visit 25 minutes cJ Astudillo LARDER COOK Work Phone: [facility] IM Comment on above: ILD (interstitial lia ng disease) (CMS/HCC) (Primary Dx); Pulmonary fibrosis (CMS/HCC); 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); Mixed hyperlipidemia (CMS/HCC); Bilateral leg edema; Medication management Start: 08-15-2024 End: 08-15-2024 ambulatory JABARI CELESTE Not Available Start: 08-14-2024 End: 08-14-2024 Patient encounter procedure Jabari Celeste DO Work Phone: [facility] Start: 08-14-2024 End: 08-14-2024 ambulatory Jabari Celeste Facility:[facility] Start: 08-10-2024 End: 08-11-2024 ambulatory Shubham Knox MD Work Phone: Ophthalmology Comment on above: Floaters Start: 08-02-2024 End: 08-02-2024 ambulatory SHUBHAM KNOX Facility:[facility] Start: 08-02-2024 End: 08-02-2024 Patient encounter procedure [...] Start: 07-12-2024 End: 07-12-2024 ambulatory SHUBHAM KNOX Facility:[facility] Start: 07-12-2024 End: 07-12-2024 Patient encounter procedure Shubham Knox MD Work Phone: Ophthalmology Comment on above: Pseudophakia (Primar y Dx) Start: 07-05-2024 End: 07-05-2024 ambulatory SHUBHAM KNOX Facility:[facility] Start: 07-05-2024 End: 07-05-2024 Patient encounter procedure Shubham Knox MD Work Phone: Ophthalmology Comment on above: Pseudophakia (Primar y Dx) Start: 07-04-2024 End: 07-04-2024 ambulatory SHUBHAM KNOX Facility:[facility] Start: 07-01-2024 End: 07-01-2024 Refill Shubham Knox MD Work Phone: Ophthalmology Start: 06-21-2024 End: 06-21-2024 ambulatory SHUBHAM KNOX Facility:[facility] Start: 06-21-2024 End: 06-21-2024 Patient encounter procedure Shubham Knox MD Work Phone: Ophthalmology Comment on above: Pseudophakia (Primar y Dx) Start: 06-20-2024 End: 06-20-2024 ambulatory JABARI CELESTE Facility:[facility] Start: 06-17-2024 End: 06-17-2024 Refill Shubham Knox MD Work Phone: Ophthalmology Start: 06-16-2024 End: 06-16-2024 ambulatory JABARI CELESTE Facility:[facility] Start: 06-14-2024 Encounter for other preprocedural examination BELKIS ARANDA [facility] Start: 06-14-2024 End: 06-14-2024 Preprocedural examination done Belkis Aranda PA-C Work Phone: [facility] Work Phone: Start: 06-14-2024 End: 06-14-2024 ambulatory BELKIS ARANDA Facility:[facility] Start: 06-14-2024 End: 06-14-2024 Patient encounter procedure [...] day discharge Jabari Celeste DO Work Phone: [facility] Comment on above: ILD (interstitial lia ng disease) (CMS/HCC) (Primary Dx); Pulmonary fibrosis (CMS/HCC); Chronic hypoxemic respiratory failure (CMS/HCC); 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); Bilateral leg edema; Other fatigue Start: 05-15-2024 End: 05-15-2024 ambulatory JABARI CELESTE Not Available Start: 05-07-2024 Non-patient / Non-visit Raúl Celeste DO Work Phone: [facility] Work Phone: Start: 05-07-2024 Non-patient / Non-visit DO Mukund cope Roula Work Phone: [facility] Pulmonary Disease Work Phone: Start: 05-06-2024 End: 05-12-2024 Evaluation and management of inpatient DO Jabari Celeste Work Phone: [facility] [place] [facility] Work Phone: Start: 04-28-2024 End: 04-28-2024 Telephone encounter Shubham Knox MD Work Phone: Ophthalmology Comment on above: Received Outside Med ical Records Start: 04-27-2024 End: 04-27-2024 ambulatory Jabari Celeste DO Work Phone: [facility] Work Phone: Start: 04-27-2024 End: 04-27-2024 Departed Referred Jabari Celeste DO Work Phone: [facility] [place] Start: 04-13-2024 End: 04-13-2024 ambulatory DO Jabari Celeste Work Phone: [facility] Work Phone: Start: 04-13-2024 End: 04-13-2024 Departed Referred DO Jabari Celeste Work Phone: [facility] Work Phone: Start: 04-13-2024 End: 04-13-2024 Patient encounter procedure DO Jabari Celeste Work Phone: [facility]-Pre-Surgical Testing Work Phone: Start: 03-10-2024 End: 03-10-2024 Patient encounter procedure DO Jabari Celeste Work Phone: [facility]-Lab [facility] Start: 03-07-2024 End: 03-07-2024 ambulatory [facility] Work Phone: Start: 03-07-2024 End: 03-07-2024 Patient encounter procedure [facility] Work Phone: Start: 11-26-2023 End: 11-26-2023 ambulatory DO Jabari Celeste Work Phone: [facility] Work Phone: Start: 11-26-2023 End: 11-26-2023 Patient encounter procedure DO Jabari Celeste Work Phone: [facility]-Lab [facility] Start: 10-12-2023 Non-patient / Non-visit DO Mukundtwan gordony Roula Work Phone: [facility] Work Phone: Start: 10-12-2023 End: 10-16-2023 Evaluation and management of inpatient DO Jabari Celeste Work Phone: [facility] [place] [facility] Work Phone: Start: 09-30-2023 End: 09-30-2023 ambulatory DO Jabari Celeste Work Phone: [facility] Work Phone: Start: 09-30-2023 End: 09-30-2023 Patient encounter procedure DO Jabari Celeste Work Phone: [facility] Work Phone: Start: 09-10-2023 End: 09-10-2023 ambulatory DO Jabari Celeste Work Phone: [facility] Work Phone: Start: 09-10-2023 End: 09-10-2023 Patient encounter procedure DO Jabari Celeste Work Phone: [facility] Start: 09-07-2023 End: 09-07-2023 ambulatory Christopher Danielle Other [employer] [facility] [employer] Other Start: 09-07-2023 Office outpatient vi sit 15 minutes Christopher Danielle [facility] Start: 09-07-2023 End: 09-07-2023 Patient encounter procedure DO Jabari Celeste Work Phone: [facility]- Start: 01-14-2023 End: 01-14-2023 ambulatory Christopher Danielle Other [employer] Other Start: 01-14-2023 Encounter by compute r link Christopher Danielle [facility] Start: 11-23-2022 End: 11-23-2022 ambulatory Christopher Danielle Other [employer] Other Start: 11-23-2022 Encounter by [employer] Christopher Danielle [facility] Start: 10-19-2022 End: 10-19-2022 ambulatory DO Jabari Celeste Work Phone: [facility] Work Phone: Start: 10-19-2022 End: 10-19-2022 Patient encounter procedure DO Jabari Celeste Work Phone: [facility] [place] Work Phone: Start: 10-14-2022 End: 10-14-2022 ambulatory DO Jabari Celeste Work Phone: [facility] Work Phone: Start: 10-14-2022 End: 10-14-2022 Patient encounter procedure DO Jabari Celeste Work Phone: [facility] Start: 09-10-2022 End: 09-10-2022 ambulatory DO Jabari Celeste Work Phone: [facility] Work Phone: Start: 09-10-2022 End: 09-10-2022 Patient encounter procedure DO Jabari Celeste Work Phone: [facility] Work Phone: Start: 09-08-2022 End: 09-08-2022 ambulatory Christopher Danielle Other [employer] Other Start: 09-08-2022 Office outpatient vi sit 15 minutes Christopher Danielle [facility] Start: 05-04-2022 End: 05-04-2022 ambulatory Christopher Danielle Other [employer] Other Start: 05-04-2022 Encounter by [employer] Christopher Danielle [facility] Start: 04-21-2022 End: 04-21-2022 ambulatory Christopher Danielle Other [employer] Other Start: 04-21-2022 Encounter by [employer] Christopher Danielle [facility] Start: 04-09-2022 End: 04-09-2022 Patient encounter procedure DO Jabari Celeste Work Phone: [facility] Start: 03-10-2022 End: 03-10-2022 ambulatory Christopher Danielle Other [employer] Other Start: 03-10-2022 Office outpatient vi sit 15 minutes Christopher Danielle [facility] Start: 09-15-2021 End: 09-15-2021 ambulatory Chilo Hollingsworthdano Other [employer] Other Start: 09-15-2021 Encounter by yue guille gomez Chilo Bergno [facility] Start: 09-08-2021 End: 09-08-2021 ambulatory Chilo Hollingsworthdano Other [employer] Other Start: 09-08-2021 Telephone encounter Chilo guidoo [facility] Start: 08-26-2021 End: 08-26-2021 ambulatory Chilo Bergno Other [employer] Other Start: 08-26-2021 Office outpatient vi sit [...] Phone: Start: 05-07-2024 Respiratory Panel (PCR) Jabari Ceelste DO Work Phone: Start: 05-06-2024 Aerobic microbial culture Jabari Celeste DO Work Phone: Start: 05-06-2024 Gram stain microscopy J shania Celeste [employer] Work Phone: Start: 05-06-2024 Investigation of transfusion reaction DO Jabari Celeste Work Phone: Start: 11-26-2023 Lipid 1996 panel - S luz maria or Plasma Shubham Knox MD Work Phone: Start: 10-12-2023 SARS-CoV-2, Influenz a & RSV (PCR) DO Jabari Celeste Work Phone: Start: 10-12-2023 Duplex scan of lower limb veins DO Jabari Celeste [employer] Phone: Start: 10-12-2023 CT angiography of thorax DO Jabari Celeste [employer] Phone: Start: 10-12-2023 Plain chest X-ray DO Leeroy Celeste [employer] Phone: Start: 09-30-2023 End: 09-30-2023 Screening mammography of bilateral breasts DO Jabari Celeste Work Phone: Start: 09-08-2023 Microscopic observat ion [Identifier] in Cervix by Cyto stain Jabari Celeste [employer] Work Phone: Start: 09-10-2022 Screening mammograph y of bilateral breasts DO Jabari Celeste [employer] Phone: Plan of Treatment Date Care Activity Detail Author Start: 09-19-2029 Screening for malignant neoplasm of cervix [facility] Start: 11-25-2028 Lipid panel Lipid Screening [facility] Start: 11-25-2026 Diabetes Screening Diabetes Screening [facility] Start: 09-08-2026 Screening for malignant neoplasm of cervix [facility] Start: 07-28-2026 Screening for malignant neoplasm of cervix HPV/Cotest [facility] Start: 11-10-2025 Screening for malignant neoplasm of breast Mammogram [facility] Start: 09-21-2025 End: 09-21-2025 Patient encounter procedure [facility] Start: 08-21-2025 End: 08-21-2025 Patient encounter procedure 08/21/2025 8:45 AM EST Office Visit [facility] [address] [place] [id number] [facility] Start: 04-16-2025 Influenza vaccination Influenza Vaccine (#1) [facility] Start: 04-03-2025 End: 04-03-2025 Patient encounter procedure 04/03/2025 9:45 AM EDT Office Visit [facility] [address] [place] [phone] Gennaro Londono DO [address] [place] [address] [facility] Start: 02-13-2025 End: 02-13-2025 Patient encounter procedure [facility] IM Comment on above: Arrived Start: 02-12-2025 End: 08-15-2025 Comprehensive metabolic 2000 panel - Serum or Plasma Comprehensive metabolic panel Lab Routine ILD (interstitial lung disease) (CMS/HCC) Pulmonary fibrosis (CMS/HCC) Bilateral leg edema Expected: 02/12/2025, Expires: 08/15/2025 [facility] Comment on above: Expected: 02/12/2025, Expires: Start: 02-12-2025 End: 08-15-2025 HEMOGRAM CBC WITHOUT DIFF ([facility]) HEMOGRAM CBC WITHOUT DIFF ([facility]) Lab Routine ILD (interstitial lung disease) (CMS/HCC) Pulmonary fibrosis (CMS/HCC) Medication management Expected: 02/12/2025 (Approximate), Expires: 08/15/2025 [facility] Work Phone: Comment on above: Expected: 02/12/2025 [...] [address] [place] [id number] Jabari Celeste DO [address] [place] [address] [facility] Start: 02-07-2025 [facility] Start: 01-15-2025 Plain chest X-ray XR chest 1V portable [facility] Start: 01-15-2025 XR Chest Single view [facility] Start: 10-14-2024 [facility] Start: 10-13-2024 [facility] Start: 10-12-2024 [facility] Start: 10-11-2024 [facility] Start: 10-10-2024 [facility] Start: 10-09-2024 End: 10-09-2024 Patient encounter procedure 10/09/2024 9:30 AM EST Office Visit [facility] [address] [place] [phone] Jabari Celeste DO [address] [place] [address] Arrived [facility] Comment on above: Arrived Start: 10-09-2024 [facility] Start: 10-08-2024 [facility] Start: 10-07-2024 [facility] Start: 10-06-2024 End: 10-06-2024 [facility] Start: 10-05-2024 [facility] Start: 10-04-[address] [facility] Start: 10-04-2024 [facility] Start: 10-04-[address] [facility] Start: 10-01-2024 End: 11-17-2025 DBT Breast [...] [address] [place] [phone] Gennaro Londono, DO [address] [place] [address] [facility] Start: 09-13-2024 End: 09-13-2024 Patient encounter procedure 09/13/2024 2:00 PM EST Office Visit [facility] [address] [place] [phone] Gennaro Londono, DO [address] [place] [address] [facility] Start: 08-23-2024 End: 08-23-2024 Patient encounter procedure 08/23/2024 3:15 PM EST Office Visit [facility] [address] [facility] [address] [place] [address] Shubham Knox MD [address] [place] [id number] post op Ophthalmology Comment on above: post op Start: 08-15-2024 End: 08-15-2024 Patient encounter procedure [facility] Comment on above: Arrived Start: 08-07-2024 End: 05-15-2025 CBC W Auto Differential panel - Blood CBC and differential Lab Routine 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) Expected: 08/07/2024 (Approximate), Expires: 05/15/2025 [facility] Healthcare Comment on above: Expected: 08/07/2024 (Approximate), Expi res: 05/15/2025 Start: 08-07-2024 End: 05-15-2025 Comprehensive metabolic 2000 panel - Serum or Plasma Comprehensive metabolic panel Lab Routine 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) Expected: 08/07/2024 (Approximate), Expires: 05/15/2025 [facility] Work Phone: Comment on above: Expected: 08/07/2024 (Approximate), Expi res: 05/15/2025 Start: 08-07-2024 End: 05-15-2025 Lipid 1996 panel - Serum or Plasma Lipid panel Lab Routine 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) Expected: 08/07/2024 (Approximate), Expires: 05/15/2025 [facility] Comment on above: Expected: 08/07/2024 (Approximate), Expi res: 05/15/2025 Start: 08-07-2024 End: 05-15-2025 Thyrotropin [Units/volume] in Serum or Plasma TSH Lab Routine Other fatigue Expected: 08/07/2024 (Approximate), Expires: 05/15/2025 [facility] Comment on above: Expected: 08/07/2024 (Approximate), Expi res: 05/15/2025 Start: 08-02-2024 End: 08-02-2024 Patient encounter procedure 08/02/2024 11:00 AM EST Office Visit [facility] [address] [address] Shubham Knox MD [address] [address] ONE MONTH POST OP/ OUTCOME Ophthalmology Comment on above: ONE MONTH POST OP/ OUTCOME Start: 07-12-2024 End: 07-12-2024 Patient encounter procedure 07/12/2024 10:15 AM EST Office Visit [facility] [address] [place] [address] Shubham Knox MD [address] [place] [id number] ONE WEEK POST OP Ophthalmology Comment on above: ONE WEEK POST OP Start: 07-05-2024 End: 07-05-2024 Patient encounter procedure 07/05/2024 12:45 PM EST Office Visit [facility] [address] [address] Shubham Knox MD [address] [place] [id number] FIRST DAY POST OP Ophthalmology Comment on above: FIRST DAY POST OP Start: 07-04-2024 End: 07-04-2024 Admission to same day surgery center Ophthalmology Comment on above: PHACOEMULSIFICATION CATARACT IMPLANT INT RAOCULAR LENS W/O ENDOSCOPIC CYCLOPHOTOCOAGULATION Start: 07-04-2024 End: 07-04-2024 Oph bmtry prtl coher intrfrmtry io lens pwr elisa [facility] Start: 07-04-2024 Subsequent hospital visit by physician Ophthalmology Comment on above: Nuclear sclerotic cataract, bilateral [H 25.13] Start: 07-04-2024 End: 07-04-2024 Xcapsl ctrc rmvl insj io lens prosth w/o ecp [facility] Start: 07-04-2024 End: 07-04-2024 Admission to same day surgery center 07/04/2024 11:23 AM EST - 07/04/2024 11:52 AM EST Surgery Ophthalmology [address] [address] Shubham Knox MD [address] [place] [address] PHACOEMULSIFICATION CATARACT IMPLANT INTRAOCULAR LENS W/O ENDOSCOPIC CYCLOPHOTOCOAGULATION Ophthalmology Comment on above: PHACOEMULSIFICATION CATARACT IMPLANT INT RAOCULAR LENS W/O ENDOSCOPIC CYCLOPHOTOCOAGULATION Start: 07-04-2024 End: 07-04-2024 Oph bmtry prtl coher intrfrmtry io lens pwr elisa OPHTHALMIC BIOMETRY BY PARTIAL COHERENCE INTERFEROMETRY W/INTRAOCULAR LENS POWER CALCULATION Nuclear sclerotic cataract, bilateral 07/04/2024 11:23 AM EST [facility] Start: 07-04-2024 Subsequent hospital visit by physician 07/04/2024 11:23 AM EST Hospital Encounter Ophthalmology [address] [address] Shubham Knox MD [address] [place] [address] 117[address] Nuclear sclerotic cataract, bilateral [H25.13] Ophthalmology Comment on above: Nuclear sclerotic cataract, bilateral [H 25.13] Start: 07-04-2024 End: 07-04-2024 Xcapsl ctrc rmvl insj io lens prosth w/o ecp PHACOEMULSIFICATION CATARACT IMPLANT INTRAOCULAR LENS W/O ENDOSCOPIC CYCLOPHOTOCOAGULATION Nuclear sclerotic cataract, bilateral 07/04/2024 11:23 AM EST [facility] Start: 06-21-2024 End: 06-21-2024 Patient encounter procedure 06/21/2024 10:15 AM EST Office Visit OPHT Ophthalmology 1999 [facility] [address] [place] [address] Shubham Knox MD [address] [place] [address] FIRST DAY POST OP Ophthalmology Comment on above: FIRST DAY POST OP Start: 06-20-2024 End: 06-20-2024 Admission to same day surgery center 06/20/2024 4:01 PM EST - 06/20/2024 4:30 PM EST Surgery Ophthalmology [address] [address] Shubham Knox MD [address] [place] [address] PHACOEMULSIFICATION CATARACT IMPLANT INTRAOCULAR LENS W/O ENDOSCOPIC CYCLOPHOTOCOAGULATION Ophthalmology Comment on above: PHACOEMULSIFICATION CATARACT IMPLANT INT RAOCULAR LENS W/O ENDOSCOPIC CYCLOPHOTOCOAGULATION Start: 06-20-2024 End: 06-20-2024 Oph bmtry prtl coher intrfrmtry io lens pwr elisa OPHTHALMIC BIOMETRY BY PARTIAL COHERENCE INTERFEROMETRY W/INTRAOCULAR LENS POWER CALCULATION Nuclear sclerotic cataract, bilateral 06/20/2024 4:01 PM EST [facility] Start: 06-20-2024 Subsequent hospital visit by physician 06/20/2024 4:01 PM EST Hospital Encounter Ophthalmology 2021 [place] [id number] Shubham Knox MD [address] [place] [address] Nuclear sclerotic cataract, bilateral [H25.13] Ophthalmology Comment on above: Nuclear sclerotic cataract, bilateral [H 25.13] Start: 06-20-2024 End: 06-20-2024 Xcapsl ctrc rmvl insj io lens prosth w/o ecp PHACOEMULSIFICATION CATARACT IMPLANT INTRAOCULAR LENS W/O ENDOSCOPIC CYCLOPHOTOCOAGULATION Nuclear sclerotic cataract, bilateral 06/20/2024 4:01 PM EST [facility] Start: 06-20-2024 End: 06-20-2024 Admission to same day surgery center 06/20/2024 12:01 PM EST - 06/20/2024 12:30 PM EST Surgery Ophthalmology [address] [address] Shubham Knox MD [address] [place] [address] PHACOEMULSIFICATION CATARACT IMPLANT INTRAOCULAR LENS W/O ENDOSCOPIC CYCLOPHOTOCOAGULATION Ophthalmology Comment on above: PHACOEMULSIFICATION CATARACT IMPLANT INT RAOCULAR LENS W/O ENDOSCOPIC CYCLOPHOTOCOAGULATION Start: 06-20-2024 End: 06-20-2024 Oph bmtry prtl coher intrfrmtry io lens pwr elisa OPHTHALMIC BIOMETRY BY PARTIAL COHERENCE INTERFEROMETRY W/INTRAOCULAR LENS POWER CALCULATION Nuclear sclerotic cataract, bilateral 06/20/2024 12:01 PM EST [facility] Start: 06-20-2024 Subsequent hospital visit by physician 06/20/2024 12:01 PM EST Hospital Encounter Ophthalmology [address] [address] Shubham Knox MD [address] [place] [address] Nuclear sclerotic cataract, bilateral [H25.13] Ophthalmology Comment on above: Nuclear sclerotic cataract, bilateral [H 25.13] Start: 06-20-2024 End: 06-20-2024 Xcapsl ctrc rmvl insj io lens prosth w/o ecp PHACOEMULSIFICATION CATARACT IMPLANT INTRAOCULAR LENS W/O ENDOSCOPIC CYCLOPHOTOCOAGULATION Nuclear sclerotic cataract, bilateral 06/20/2024 12:01 PM EST [facility] Start: 06-16-2024 End: 06-16-2024 Patient encounter procedure 06/16/2024 4:30 PM EDT Office [place] [address] PRE OP [facility] [employer] [facility] Comment on above: PRE OP [facility] Start: 06-14-2024 End: 06-14-2024 Patient encounter procedure 06/14/2024 8:15 AM EDT Office Visit [facility] Ophthalmology [address] [place] [address] [place], [place] [id number] Shubham Knox MD [address] [place] [address] Complete exam Ophthalmology Comment on above: Complete exam Start: 05-12-2024 [facility] Start: 05-09-[address] [facility] Start: 05-06-[address] [facility] Start: 05-06-[address] [facility] Start: 04-27-2024 Phacoemulsification of cataract with intraocular lens implantation OR Cataract PHACO W/IOL/Vitrectomy (Left) [facility] Start: 04-16-2024 Covid-19 Vaccine ( season) Covid-19 Vaccine ( season) [facility] Start: 04-16-2024 Covid-19 Vaccine ( season) Covid-19 Vaccine ( season) [facility] Start: 04-16-2024 Influenza vaccination Influenza Vaccine (#1) [facility] Start: 10-16-2023 [facility] Start: 10-12-[address] [facility] Start: 10-12-[address] [facility] Start: 04-30-2022 Diabetes Screening Diabetes Screening [facility] Start: 2020 Lipid panel Lipid Screening [facility] Start: 2020 Screening for malignant neoplasm of colon [facility] Start: 2015 Screening for malignant neoplasm of breast Mammogram Screening [facility] Start: 1996 Screening for malignant neoplasm of cervix Cervical Cancer Screening [facility] Start: 1994 Hepatitis B Vaccine (1 of 3 - 19+ 3-dose series) Hepatitis B Vaccine (1 of 3 - 19+ 3-dose series) [facility] Start: 1994 Shingrix Vaccine (1 of 2) Shingrix Vaccine (1 of 2) [facility] Start: 1994 Urine microalbumin profile DTaP,Tdap,Td Vaccine (1 - Tdap) [facility] Start: 1993 Anxiety Screening Anxiety Screening [facility] Start: 1993 Depression Screening Depression Screening [facility] Start: 1993 HIV screening HIV Screening [facility] Start: 1986 Screening for malignant neoplasm of cervix Cervical Cancer Screening [facility] Start: 1975 Screening for malignant neoplasm of colon [facility] CORNEAL TOPOGRAPHY A TLAS OU (BOTH EYES) CORNEAL TOPOGRAPHY ATLAS OU (BOTH EYES) [facility] Imaging Routine Nuclear sclerotic cataract, bilateral 06/14/2024 9:11 AM EDT [facility] Cotinine [Mass/volum e] in Serum or Plasma 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 B prohormone N-Terminal [Mass/volume] in Serum or Plasma [facility] Nicotine [Mass/volum e] in Serum or Plasma [facility] OCT MACULA CIRRUS OU (BOTH EYES) OCT MACULA CIRRUS OU (BOTH EYES) [facility] Imaging Routine Nuclear sclerotic cataract, bilateral 06/14/2024 9:20 AM EDT [facility] Patient Education [facility] Work Phone: Patient referral [facility] Work Phone: [facility] Immunizations Immunization Date Immunization Notes Care Provider Fa boomty 06-01-2024 influenza virus vaccine, unspecified formulation Jabari Celeste DO Work Phone: [facility] 05-16-2024 influenza, injectabl e, quadrivalent, contains preservative Jc Astudillo LARDER COOK Work Phone: [facility] 06-15-2023 influenza virus vaccine, unspecified formulation Jabari Celeste DO Work Phone: [facility] 04-12-2023 Pneumococcal Conjuga te PCV 20 Jabari Celeste DO Work Phone: [facility] 07-29-2022 influenza, injectabl e, quadrivalent, preservative free Jabari Celeste DO Work Phone: [facility] 06-15-2022 influenza virus vaccine, unspecified formulation Jabari Celeste DO Work Phone: [facility] 06-03-2021 influenza virus vaccine, unspecified formulation Jabari Celeste DO Work Phone: [facility] 05-19-2021 influenza, injectabl e, quadrivalent, preservative free Jabari Celeste DO Work Phone: [facility] 04-10-2021 COVID-19 Vaccine Moderna - Documentation Purposes Only Chilo Santos Other [facility] 04-09-2021 Moderna SARS-CoV-2 Vaccination Jabari Celeste DO Work Phone: [facility] 11-15-2020 COVID-19 Vaccine Moderna - Documentation Purposes Only Chilo Santos Other [facility] 11-14-2020 Moderna SARS-CoV-2 Vaccination Jabari Celeste DO Work Phone: [facility] 10-18-2020 COVID-19 Vaccine Moderna - Documentation Purposes Only Chilo Bergno Other [facility] 10-17-2020 Moderna SARS-CoV-2 Vaccination Jabari Celeste DO Work Phone: [facility] 08-16-2018 influenza, seasonal, injectable Jabari Celeste DO Work Phone: [facility] 06-01-2018 influenza virus vaccine, unspecified formulation Shubham Knox MD Work Phone: [facility] 05-23-2018 influenza, seasonal, injectable, preservative free Shubham Knox MD Work Phone: [facility] 06-10-2017 influenza, injectabl e, quadrivalent, preservative free Shubham Knox MD Work Phone: [facility] 05-31-2017 influenza virus vaccine, unspecified formulation Jabari Celeste DO Work Phone: [facility] 05-31-2017 influenza, seasonal, injectable, preservative free Shubham Knox MD Work Phone: [facility] 07-07-2016 pneumococcal conjuga te vaccine, 13 valent Shubham Knox MD Work Phone: [facility] 06-09-2016 influenza, injectabl e, quadrivalent, preservative free Shubham Knox MD Work Phone: [facility] 05-29-2016 pneumococcal polysaccharide vaccine, 23 valent Shubham Knox MD Work Phone: [facility] 06-11-2015 influenza, seasonal, injectable, preservative free Shubham Knox MD Work Phone: [facility] 05-16-2015 seasonal influenza, intradermal, preservative free Shubham Knox MD Work Phone: [facility] 08-16-2014 pneumococcal polysaccharide vaccine, 23 valent Jabari Celeste DO Work Phone: [facility] 05-30-2014 influenza virus vaccine, unspecified formulation Jabari Celeste DO Work Phone: [facility] 07-24-2013 influenza, injectabl e, quadrivalent, preservative free Jabari Roula DO Work Phone: [facility] 07-24-2013 influenza, seasonal, injectable Shubham Knox MD Work Phone: [facility] 07-21-2011 influenza virus vaccine, unspecified formulation Jabari Roula DO Work Phone: [facility] 07-21-2011 influenza, seasonal, injectable Shubham Knox MD Work Phone: [facility] 06-05-2010 pneumococcal polysaccharide vaccine, 23 valent Jabari Celeste DO Work Phone: [facility] 08-16-2009 pneumococcal polysaccharide vaccine, 23 valsarabjit Knox MD Work Phone: [facility] 06-06-2009 novel [id number], preservative-free, injectable Shubham Knox MD Work Phone: [facility] 06-26-2005 pneumococcal polysaccharide vaccine, 23 valsarabjit Knox MD Work Phone: [facility] NEGATED: Highlighted row has not occurred!04-28-2019 influenza, injectable, quadrivalent, preservative free Shubham Knox MD Work Phone: [facility] Comment on above: Deferred: Patient Re fused NEGATED: Highlighted row has not occurred!04-28-2019 pneumococcal polysaccharide vaccine, 23 valsarabjit Knox MD Work Phone: [facility] Comment on above: Deferred: Patient Re fused NEGATED: Highlighted row has not occurred!04-27-2019 influenza, injectable, quadrivalent, preservative free Shubham Knox MD Work Phone: [facility] Work Phone: Comment on above: Deferred: Patient Re fused NEGATED: Highlighted row has not occurred!04-24-2019 pneumococcal polysaccharide vaccine, 23 valent Shubham Knox MD Work Phone: [facility] Comment on above: Deferred: - patient states she had in 2014 LIP notified Payers Date Payer Category Payer Self-pay 2021 Private Health Insurance [employer] [id number] 2019 Unknown [id number] 2015 Unknown [id number] 1975 Unknown [id number] 2.16.840.1.992186.3.579.2. 356 1975 Unknown [id number] 2.16.840.1.476248.3.579.2. 356 1975 Unknown [id number] 2.16.840.1.883521.3.579.2. 356 1975 Unknown [id number] 2.16.840.1.666405.3.579.2. 1259 1975 Unknown [id number] 2.16.840.1.787663.3.579.2. 1258 1975 Unknown [id number] 2.16.840.1.991135.3.579.2. 9 1975 Unknown [id number] 2.16.840.1.396971.3.579.2. 9 1975 Unknown [id number] 2.16.840.1.986097.3.579.2. 1259 1975 Unknown [id number] 2.16.840.1.872907.3.579.2. 9 1975 Unknown [id number] 2.16.840.1.525998.3.579.2. 1259 1975 Unknown [id number] 2.16.840.1.627360.3.579.2. 1259 Unknown [id number] 2.16.840.1.186850.3.579.2. 531 Unknown [id number] 2.16.840.1.487501.3.579.2. 531 Unknown [id number] 2.16.840.1.821675.3.579.2. 531 Unknown [id number] 2.16.840.1.414292.3.579.2. 531 Unknown [id number] 2.16.840.1.338355.3.579.2. 531 Unknown [id number] 2.16.840.1.058224.3.579.2. 531 Unknown [id number] 2.16.840.1.058007.3.579.2. 531 Unknown [id number] 2.16.840.1.868872.3.579.2. 531 Unknown [id number] 2.16.840.1.356800.3.579.2. 531 Unknown [id number] 2.16.840.1.571503.3.579.2. 531 Unknown [id number] 2.16.840.1.005333.3.579.2. 531 Unknown [id number] 2.16.840.1.807127.3.579.2. 531 Unknown [id number] 2.16.840.1.464895.3.579.2. 531 Social History Date Type Detail Facility Sex Assigned At [employer] Other Start: 07-11-2019 End: 02-13-2025 Sex Assigned At [facility] Start: 05-08-2020 End: 01-15-2025 Tobacco smoking status NHIS Ex-smoker (finding) [facility] Start: 1975 Sex Assigned At Female F [facility] Start: 08-16-1990 End: 08-16-2000 History of tobacco use Current smoker [facility] Start: 04-24-2019 End: 05-15-2024 Tobacco use and exposure Smokeless tobacco non-user [facility] Start: 07-11-2019 End: 08-02-2024 Alcoholic beverage intake Not Asked [facility] Start: 07-11-2019 End: 02-13-2025 History of Social function [facility] Adult Depression Screening Assessment 0 [facility] Start: 1975 Sex assigned at Not on file [facility] Start: 08-16-1990 End: 08-16-2000 History of tobacco use Cigarette Smoker [facility] History of tobacco use Passive smoker [facility] Start: 05-15-2024 End: 04-03-2025 Alcoholic [...] Start: 06-29-2024 End: 01-15-2025 Sex Female (finding) [facility] How often do you hav e 6 or more drinks on 1 occasion? Never [facility] Start: 10-05-2024 SDOH Follow up SDOH Follow up [facility] Work Phone: Start: 04-02-2025 Alcohol Comment Social Drinker - Less than 1 drink per week [facility] NEGATED: Highlighted row [facility] Medical Equipment Procedure Code Equipment Code Equipment Origin al Text Equipment Identifier Dates [id number] Janneth on [facility] - [id number] Start: 06-20-2024 [id number] Janneth on [facility] - [id number] Start: 07-04-2024 Goals Date Patient Goal Desired Activity /State Functional Status Date Assessment Result Facility 02-13-2025 Patient Health Quest ionnaire 2 item (PHQ-2) [Reported] [facility] 10-06-2024 Functional status Patient at Baseline [facility] Work Phone: 10-04-2024 Functional status Patient at Baseline [facility] Work Phone: 05-12-2024 Functional status Patient at Baseline [facility] Work Phone: 10-16-2023 Functional status Patient at Baseline [facility] Work Phone: [facility] Mental Status Date Assessment Result Facility 10-06-2024 Cognitive function Cognitive Sta tus Patient at Baseline [facility] Work Phone: 10-04-2024 Cognitive function Cognitive Sta tus Patient at Baseline [facility] Work Phone: 05-12-2024 Cognitive function Cognitive Sta tus Patient at Baseline [facility] Work Phone: 10-16-2023 Cognitive function Cognitive Sta tus Patient at Baseline [facility] Work Phone: Clinical Notes 03-10-2022 to 04-03-2025 Chiquis Mitchell MA - 04/03/2025 9:45 AM EDT Note Date & Type Note Facility 04-03-2025 History of Presen t illness Narrative Images from the original note were not included. Gennaro Londono, DO Obstetrics and Gynecology Flash Irving 1975 04/03/25 [id number] Exam Chief Complaint Patient presents with Abnormal [...] LUNGS: clear to auscultation bilaterally. Oxygen. 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 documented in this encounter [facility] 11-28-2024 Evaluation note Diagnosis Onset Date Resolution Polymyositis acute November 28, 2024 1:37pm Pulmonary hypertension acute Ap ril 2024 1:37pm ILD (interstitial lung disease) inactive November 28, 2024 1:37pm [facility] Work Phone: 1(447) 916-347502-20-2025 Consult note Author Son Chávez [facility] Note Date/Time October 05, 2024 2:47pm [facility] [address] [place], [place] [id number] Pulmonology Consult Note Signed Patient: Flash Irving MR#: [id number] : 1975 Acct:[id number] Age/Sex: 49 / F Adm Date: 5 Loc: Room: [address] [place] [address] Type: ADM INOo Attending Dr: Paddy Wiggins [...] following with Dr. Santos as well as client engagement specialist in [facility], presented to [facility] ER with chest discomfort, feeling flushed [...] noted below or in HPI [facility] Medical History (Updated 10/05/24 @ 14:45 by [...] nondistended. Extremities: No edema. 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 Santos as well as client engagement specialist in [facility], presented to [facility] ER with chest discomfort, feeling flushed [...] noted below or in HPI [facility] Medical History (Updated 10/05/24 @ 14:45 by [...] nondistended. Extremities: No edema. 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02-20-2025 Progress note Author Paddy Wiggins [facility] Note Date/Time October 05, 2024 12:19pm [facility] [address] [place] [address] Hospitalist Progress Note Signed Patient: Flash Irving MR#: [id number] : 1975 Acct:[id number] Age/Sex: 49 / F Adm Date: 5 Loc: Room: [address] [place] [address] Type: ADM INOo Attending Dr: Paddy Wiggins [...] following with Dr. Santos as well as client engagement specialist in [facility], presented to [facility] ER from home with sudden onset [...] signed by Paddy Wiggins MD> 10/05/24 1219 [facility] Work Phone: 1(517) 168-957602-20-2025 [place] [id number] Hospitalist Progress Note Signed Patient: Flash Irving MR#: [id number] : 1975 Acct:[id number] Age/Sex: 49 / F Adm Date: 5 Loc: Room: [address] [place] [address] Type: ADM INOo Attending Dr: Paddy Wiggins [...] following with Dr. Santos as well as client engagement specialist in [facility], presented to [facility] ER from homewith sudden onset shortness [...] Wiggins MD 10/05/24 1053 Signed By: 10/05/[address] [place], [place] 0390902-19-2025 History and physical note Author Paddy Wiggins [facility] Note Date/Time October 04, 2024 5:08pm [facility] [address] [place] [address] Hospitalist H&P Signed Patient: Flash Irving MR#: [id number] : 1975 Acct:[id number] Age/Sex: 49 / F Adm Date: 5 Loc: Room: [address] [place] [address] Type: ADM INOo Attending Dr: Paddy Wiggins MD Copies to: DO Paddy Braun MD~ HPI DATE OF EXAMINATION: 10/04/24 CHIEF COMPLAINT: Chest Discomfort HISTORY OF PRESENT ILLNESS: Flash Irving is a 49 y/o F h/o interstitial lung disease, pulmonary hypertension,on remodulin pump and sildenafil, she uses 4 to 5 L at rest and 6 with exertion,following with Dr. Santos as well as client engagement specialist in [facility], presented to [facility] ER from home with sudden onset [...] no loss of motor function [facility] Medical History (Updated 10/04/24 @ 17:02 by [...] % (Auto) 11.9 % (.) 10/04/24 12:50 [place] % (Auto) 6.8 % (.) 10/04/24 12:50 Eos % (Auto) 0.7 % (.) 10/04/24 12:50 Baso % (Auto) 0.4 % (.) 10/04/24 12:50 Nucleat RBC Rel Count 0.1 /100 WBC (0-0.5) 10/04/24 12:50 Neut # (Auto) 8.2 x10E3/uL (1.8-7.7) H 10/04/24 12:50 Lymph # (Auto) 1.2 x10E3/uL (1.00-4.8) 10/04/24 12:50 [place] # (Auto) 0.7 x10E3/uL (0.0-0.8) 10/04/24 12:50 [...] following with Dr. Santos as well as client engagement specialist in [facility], presented to [facility] ER from home with sudden onset [...] <Electronically signed by Paddy Wiggins MD> 10/04/24 1706 [facility] Work Phone: 1(888) 708-903402-19-2025 Evaluation note* Diagnosis Onset Date Resolution Status Admit Date Acute hypokalemia acute Februar y 2024 4:23pm Chest pain acute October 04, 2024 4:23pm Pulmonary fibrosis acute Februa ry 2024 4:23pm Pulmonary hypertension acute Fe bruary 2024 4:23pm Shortness of breath acute Febru dayo 2024 4:23pm [facility] Work Phone: 1(797) 224-117702-19-2025 Evaluation note* Diagnosis Onset Date Resolution Status Admit Date Chest pain acute October 04, 2024 4:23pm Pulmonary fibrosis acute Februa ry 2024 4:23pm Pulmonary hypertension acute Fe bruary 2024 4:23pm Acute hypokalemia resolved Februar y 2024 4:23pm Shortness of breath resolved Febru dayo2024 4:23pm [facility] Work Phone: 1(653) 430-354202-19-2025 Evaluation note* Diagnosis Onset Date Resolution Status Admit Date Chest pain acute October 04, 2024 4:23pm Pulmonary fibrosis acute Februa ry 2024 4:23pm Pulmonary hypertension acute Fe bruary 2024 4:23pm Acute hypokalemia resolved ua2024 4:23pm Shortness of breath resolved Febru dyao2024 4:23pm Polymyositis acute November 28, 2024 1:37pm Pulmonary hypertension acute Ap ril 2024 1:37pm ILD (interstitial lung disease) inactive November 28, 2024 1:37pm [facility] Work Phone: 1(832) 351-195502-19-2025 [place] [address] Hospitalist H&P Signed Patient: Flash Irving MR#: [id number] : 1975 Acct:[id number] Age/Sex: 49 / F Adm Date: 5 Loc: Room: [address] [place] [address] Type: ADM INOo Attending Dr: Paddy Wiggins MD Copies to: DO Paddy Braun MD~ HPI DATE OF EXAMINATION: 10/04/24 CHIEF COMPLAINT: Chest Discomfort HISTORY OF PRESENT ILLNESS: Flash Irving is a 49 y/o F h/o interstitial lung disease, pulmonary hypertension,on remodulin pump and sildenafil, she uses 4 to 5 L at rest and 6 with exertion,following with Dr. Santos as well as client engagement specialist in [facility], presented to [facility] ER from home with sudden onset [...] no loss of motor function [facility] Medical History (Updated 10/04/24 @ 17:02 by [...] % (Auto) 11.9 % (.) 10/04/24 12:50 [place] % (Auto) 6.8 % (.) 10/04/24 12:50 Eos % (Auto) 0.7 % (.) 10/04/24 12:50 Baso % (Auto) 0.4 % (.) 10/04/24 12:50 Nucleat RBC Rel Count 0.1 /100 WBC (0-0.5) 10/04/24 12:50 Neut # (Auto) 8.2 x10E3/uL (1.8-7.7) H 10/04/24 12:50 Lymph # (Auto) 1.2 x10E3/uL (1.00-4.8) 10/04/24 12:50 [place] # (Auto) 0.7 x10E3/uL (0.0-0.8) 10/04/24 12:50 [...] following with Dr. Santos as well as client engagement specialist in [facility], presented to [facility] ER from home with sudden onset [...] 2 Documented By: Paddy Wiggins MD 10/04/24 0221 Signed By: 10/04/[address] [facility]02-19-2025 Radiology Diagnostic study note [facility] [place] [address] CT Scan Report Signed Patient: Flash Irving MR#: [id number] : 1975 Acct:[id number] Age/Sex: 49 / F ADM Date: 5 Loc: ER Room: Type: [facility] ER Attending Dr: Copies to: Mat [...] Jabari Cuevas M.D.10/04/2024 2:03 PM Dictation Location: [place] [address] Transcribed By: [facility] 10/04/24 1403 Dictated By: Jabari Cuevas DO 10/04/24 1400 Signed By: 10/04/[address] [facility]02-04-2025 History of Present illness Narrative * Chiquis Mitchell MA - 09/19/2024 8:45 AM EST Images from the original note were not included. Gennaro Londono DO Obstetrics and Gynecology Flash Irving 1975 09/19/24 [id number] Yearly Wellness Exam Chief Complaint Patient presents with Gynecologic Exam LMP: 09/06/24 regular, monthly, light flow, last 3-4 days BC: Nortrel 35 - satisfied. Last pap 09-08-23 neg, HPV pos. Last mammogram 09-30-23 [facility]. Denies breast, urinary, or bowel concerns. Breast [...] stay Cataract 08/10/2023 Esophageal reflux Neuromuscular disorder ([facility]/HCC) 09/03/2000 Obesity Osteoporosis ([facility]) Unspecified Polymyositis ([facility]) Pulmonary fibrosis ([facility]) Pulmonary hypertension ([facility]) Recurrent spontaneous pneumothorax 04/24/2019 ROS Const: Denies [...] costovertebral angle tenderness, no obvious scoliosis/kyphosis. 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 documented in this encounterCox Walnut [id number] History of Present illness Narrative* Jc Astudillo [...] She has a scheduled appointment with her risk modeler at the end of August 2024, followed [...] & Plan 1. ILD (interstitial lung disease) (CMS/[facility]) (Primary) - predniSONE (Deltasone) 10 MG tablet; [...] Medication management - HEMOGRAM CBC WITHOUT DIFF ([facility]); Future 7. Hypokalemia Her potassium level is [...] visit in 6 months. documented in this encounterCox Walnut LawnLarfbncbpz37-93-9495 NoteHNO ID: [id number] Author: SHUBHAM KNOX MD Service: ? Author [...] Shubham Knox MD August 02, 2024 9:26 [facility]12-18-2024 History of Present illness Narrative* Shubham Knox [...] 02, 2024 9:26 AM documented in this encounterMarymount Hospital12-09-2024 Telephone encounter Note * Telephone Encounter - Emilia Dietz - 07/24/2024 8:47 AM EST Letter sent out on 07/24/24 to reschedule due to provider out of office. [facility] [id number] Miscellaneous Notes* Telephone Encounter - Emilia Dietz - 07/24/2024 8:47 AM EST Letter sent out on 07/24/24 to reschedule due to provider out of office. documented in this encounterCox Walnut LawnYfctuybpwn84-09-1636 Telephone encounter Note* Telephone Encounter - Carlene Youngblood LPN - 07/17/2024 3:26 PM EST Pt requesting a refill on Prednisone. I don't see that we have ever filled it for it [facility] LawnFoeabtvbcv91-79-2703 Miscellaneous Notes* Telephone Encounter - Carlene Youngblood LPN - 07/17/2024 3:26 PM EST Pt requesting a refill on Prednisone. I don't see that we have ever filled it for it documented in this encounterCox Walnut LawnQynyxberad40-19-8238 NoteHNO ID: [id number] Author: SHUBHAM KNOX MD Service: ? Author [...] Shubham Knox MD July 12, 2024 10:26 [facility]11-27-2024 History of Present illness Narrative* Shubham Knox [...] 12, 2024 10:26 AM documented in this encounterMarymount Hospital11-20-2024 NoteHNO ID: [id number] Author: SHUBHAM KNOX MD Service: ? Author [...] Shubham Knox MD July 05, 2024 1:05 [facility]11-20-2024 History of Present illness Narrative* [...] 05, 2024 1:05 PM documented in this encounterMarymount Hospital11-06-2024 NoteHNO ID: [id number] Author: SHUBHAM KNOX MD Service: ? Author [...] Shubham Knox MD June 21, 2024 11:07 [facility]11-06-2024 History of Present illness Narrative* Shubham Knox [...] 21, 2024 11:07 AM documented in this encounterMarymount Hospital10-30-2024 Instructions* Patient Instructions* Belkis Aranda PA-C - 06/14/2024 11:44 AM EDT [facility] Patient Instructions for Surgery FOOD INSTRUCTIONS: NO [...] anesthesia, you must have a responsible adult rental car ferry driver take you home, andbe with you after surgery. You may use a ride service such as Lyft, Uber, or [employer] as longas you have a responsible adult accompanying you and taking responsibility for you. We strongly recommend a reliable adult stays with you overnight to help take care of you. If you have any questions or concerns regarding today's visit please do not hesitate to contact [facility] at [phone] or [phone], ext [phone]. Signature: Belkis Crews Date: June 14, 2024 documented in this encounterMarymount Hospital10-30-2024 History and physical note * Belkis [...] fevers. Neuro: No history of TIA's, stroke, TOGGLE PRESS OPERATOR tumor, impaired sensorium, hemiplegia, paraplegia or quadriplegia. No neurological symptoms or problems. Respiratory: COPD, Hospitalized for COPD, ILD, pulmonary fibrosis, 5 liters O2 continuous, Chronic hypoxemic respiratory failure. Denies orthopnea Cardiovascular: No history of HTN requiring medication, no history of angina, CHF, [place], cardiac surgery or stents. Denies rest pain, [...] dialysis. No history of symptoms or problems. LEAD DRIVER: No vaginal bleeding due to menopause and [...] type (HCC) (J84.9) ILD (interstitial lung disease) ([facility]) (J84.10) Pulmonary fibrosis (HCC) (J96.11) Chronic hypoxemic respiratory failure ([facility]) (M33.20) Polymyositis ([facility]) Comment: managed on prednisone 10 mg, cellcept - COPD exacerbation w/hospitaliztion on 05/06/2024 at [facility] - SpO2 96% on room air [...] DATE: June 14, 2024 TIME: 11:05 AM [facility]10-30-2024 History and physical note* Belkis Aranda [...] fevers. Neuro: No history of TIA's, stroke, TOGGLE PRESS OPERATOR tumor, impaired sensorium, hemiplegia, paraplegia or quadriplegia. No neurological symptoms or problems. Respiratory: COPD, Hospitalized for COPD, ILD, pulmonary fibrosis, 5 liters O2 continuous, Chronic hypoxemic respiratory failure. Denies orthopnea Cardiovascular: No history of HTN requiring medication, no history of angina, CHF, [place], cardiac surgery or stents. Denies rest pain, [...] dialysis. No history of symptoms or problems. LEAD DRIVER: No vaginal bleeding due to menopause and [...] type (HCC) (J84.9) ILD (interstitial lung disease) ([facility]) (J84.10) Pulmonary fibrosis ([facility]) (J96.11) Chronic hypoxemic respiratory failure ([facility]) (M33.20) Polymyositis ([facility]) Comment: managed on prednisone 10 mg, cellcept - COPD exacerbation w/hospitaliztion on 05/06/2024 at [facility] - SpO2 96% on room air [...] 2024 TIME: 11:05 AM documented in this encounterMarymount Hospital10-30-2024 Nurse Note* Loren Donovan LPN - 06/14/2024 11:02 AM EDT Surgeon:Dr Knox Type of surgery:PHACOEMULSIFICATION CATARACT IMPLANT INTRAOCULAR LENS W/O ENDOSCOPIC CYCLOPHOTOCOAGULATION Date of surgery:06/20 OS 07/04 OD Identified patient by name and ?yes Pacemaker or ICD? Last pacemaker check: Reviewed medications?by provider [facility]10-30-2024 Nurse Note* Loren Donovan LPN - 06/14/2024 11:02 AM EDT Surgeon:Dr Knox Type of surgery:PHACOEMULSIFICATION CATARACT IMPLANT INTRAOCULAR LENS W/O ENDOSCOPIC CYCLOPHOTOCOAGULATION Date of surgery:06/20 OS 07/04 OD Identified patient by name and ?yes Pacemaker or ICD? Last pacemaker check: Reviewed medications?by provider documented in this encounterMarymount Hospital10-30-2024 NoteHNO ID: [id number] Author: SHUBHAM KNOX MD Service: ? Author [...] Shubham Knox MD July 02, 2024 2:49 [facility]10-30-2024 History of Present illness Narrative* [...] 14, 2024 9:44 AM documented in this encounterMarymount Hospital09-30-2024 History of Present illness Narrative* Jabari Salguero Roula, DO - 05/15/2024 11:15 AM EDT Images from the original note were not included. Flash Irving is a 49 y.o. female presents with chief complaint of Hospital Follow-up (Pt is here for hospital follow-up from [facility] on 05/12. Discharge summary is in her [...] Name Age of Onset Diabetes Mother Jj cMfadden Cancer Maternal Grandmother Janine Holliday Kidney disease [...] Dictated and not read. documented in this encounterCox Walnut LawnJztkvmbtlg10-02-2743 Discharge summary Author Letitia Cruz [facility] May 12, 2024 12:49pm Note Date/Time May 12, 2024 12:49pm [facility] [address] [place] [address] Discharge Summary Signed Patient: Flash Irving MR#: [id number] : 1975 Acct:[id number] Age/Sex: 49 / F Adm Date: 4 Loc: Room: [address] [place] [address]: Letitia Cruz MD Copies to: [...] Rx Instructions .Route Rx Instructions: As directed [employer] she has a concentrator [...] signed by Letitia Cruz MD> 05/12/24 1249 [facility] Work Phone: 1(905) 812-191109-26-2024 Progress note Author Chilo Santos [facility] May 11, 2024 6:45pm Note Date/Time May 11, 2024 6:45pm [facility] [address] [place] [address] Pulmonology Progress Note Signed Patient: Flash Irving MR#: [id number] : 1975 Acct:[id number] Age/Sex: 49 / F Adm Date: 4 Loc: Room: [address] [place] [address] Type: ADM IN Attending Dr: Letitia Cruz [...] <Electronically signed by MD Chilo Santos> 05/11/241844 [facility] Work Phone: 1(576) 394-547809-26-2024 Progress note Author Letitia Cruz [facility] May 11, 2024 4:15pm Note Date/Time May 11, 2024 4:15pm [facility] [address] [place] [address] Hospitalist Progress Note Signed Patient: Flash Irving MR#: [id number] : 1975 Acct:[id number] Age/Sex: 49 / F Adm Date: 4 Loc: 4P Room: [address] [place] [address] Type: ADM IN Attending Dr: Letitia Cruz [...] Adh..Patch TOPICAL 05/08/25 08:59 Not Given DAILY [facility] Loperamide HCl 2 mg 05/09/24 10:22 05/11/24 [...] signed by Letitia Cruz MD> 05/11/24 1619 [facility] Work Phone: 1(845) 200-217509-25-2024 Progress note Author Chilo Santos [facility] May 10, 2024 12:44pm Note Date/Time May 10, 2024 12:44pm [facility] [address] [place] [address] Pulmonology Progress Note Signed Patient: Flash Irving MR#: [id number] : 1975 Acct:[id number] Age/Sex: 49 / F Adm Date: 4 Loc: Room: [address] [place] [address] Type: ADM IN Attending Dr: Letitia Cruz [...] signed by MD Chilo Santos> 05/10/24 1244 [facility] Work Phone: 1(878) 401-214509-25-2024 Progress note Author Letitia Cruz [facility] May 10, 2024 12:37pm Note Date/Time May 10, 2024 12:35pm [facility] [address] [place] [address] Hospitalist Progress Note Signed Patient: Flash Irving MR#: [id number] : 1975 Acct:[id number] Age/Sex: 49 / F Adm Date: 4 Loc: Room: [address] [place] [address] Type: ADM IN Attending Dr: Letitia Cruz [...] 1 tab /35 (28)] 1-35 Mg- QAM NOMR Administration Mcg Tablet Non-Formulary Medication 0 mg [...] <Electronically signed by Letitia Cruz MD> 05/10/[address] [place] [address] Ctr Work Phone: 1(491) 506-458509-24-2024 Progress note Author Chilo Santos [facility] May 09, 2024 5:14pm Note Date/Time May 09, 2024 8:53am [facility] [address] [place] [address] Pulmonology Progress Note Signed Patient: Flash Irving MR#: [id number] : 1975 Acct:[id number] Age/Sex: 49 / F Adm Date: 4 Loc: Room: [address] [place] [address] Type: ADM IN Attending Dr: Letitia Cruz [...] <Electronically signed by MD Chilo Santos> 05/09/24 5354 [facility] Work Phone: 1(893) 100-608209-24-2024 Progress note Author Letitia Cruz [facility] May 09, 2024 12:59pm Note Date/Time May 09, 2024 12:34pm [facility] [address] [place] [address] Hospitalist Progress Note Signed Patient: Flash Irving MR#: [id number] : 1975 Acct:[id number] Age/Sex: 49 / F Adm Date: 4 Loc: Room: [address] [place] [address] Type: ADM IN Attending Dr: Letitia Cruz [...] <Electronically signed by Letitia Cruz MD> 05/09/24 8250 [facility] Work Phone: 1(451) 336-152409-23-2024 Progress note Author Chilo Santos [facility] May 08, 2024 3:43pm Note Date/Time May 08, 2024 8:09am [facility] [address] [place] [address] Pulmonology Progress Note Signed Patient: Flash Irving MR#: [id number] : 1975 Acct:[id number] Age/Sex: 49 / F Adm Date: 4 Loc: Room: [address] [place] [address] Type: ADM IN Attending Dr: Letitia Cruz [...] CT scan of the thorax from the [facility] of May 06, 2024 was reviewed personally and compared to prior CT arteriogram from [facility] of October 12, 2023. Fibrotic changes [...] To my review, CT scan from the [facility] from May 06 is not change from prior CT scan from [facility] of October 12 of this year. [...] signed by MD Chilo Santos> 05/08/24 1543 [facility] Work Phone: 1(333) 740-543609-23-2024 Progress note Author Letitia Cruz [facility] May 08, 2024 12:50pm Note Date/Time May 07, 2024 11:44am [facility] [address] [place] [address] Hospitalist Progress Note Signed with Addenda Patient: Flash Irving MR#: [id number] : 1975 Acct:[id number] Age/Sex: 49 / F Adm Date: 4 Loc: Room: [address] [place] [address] Type: ADM IN Attending Dr: Letitia Cruz [...] Subjective Subjective Narrative: Patient was transferred from [facility] yesterday when she presented withcomplaint of shortness of breath. She does have history of pulmonary fibrosis and severe pulmonary hypertension follows with Dr. Santos and specialist in [place]. She is currently on mycophenolate, prednisone, sildenafil [...] Lidocaine 4% Adh..Patch TOPICAL 05/08/25 08:59 DAILY [facility] Methylprednisolone Sodium Succinate 40 mg 05/06/24 22:00 [...] failure: Plan Patient has been transferred to [facility] due to concern for exacerbation of pulmonary [...] signed by Letitia Cruz MD> 05/07/24 1152 [facility] Work Phone: 1(661) 710-515209-23-2024 Progress note Author Letitia Cruz [facility] May 08, 2024 12:48pm Note Date/Time May 08, 2024 12:48pm [facility] [address] [place] [address] Hospitalist Progress Note Signed Patient: Flash Irving MR#: [id number] : 1975 Acct:[id number] Age/Sex: 49 / F Adm Date: 4 Loc: 4P Room: [address] [place] [address] Type: ADM IN Attending Dr: Letitia Cruz [...] signed by Letitia Cruz MD> 05/08/24 1248 [facility] Work Phone: 1([phone]) 878-576309-22-2024 Consult note Author Chilo Santos [facility] May 07, 2024 4:15pm Note Date/Time May 07, 2024 9:31am [facility] [address] [place] [address] Pulmonology Consult Note Signed Patient: Flash Irving MR#: [id number] : 1975 Acct:[id number] Age/Sex: 49 / F Adm Date: 4 Loc: Room: [address] [place] [address] Type: ADM IN Attending Dr: Letitia Cruz [...] is now living with her sister between [place] and [place]. Review of Systems Review of Systems All other systems reviewed & are negative unless noted below or in HPI [facility] Medical History (Updated 04/13/24 @ 10:57 by [...] to review the CT scan from the [facility] at this time. Assessment/Plan (1) Acute and [...] signed by MD Chilo Santos> 05/07/24 1615 [facility] Work Phone: 1(761) 357-658509-22-2024 History and physical note Author Mira Sun [facility] May 06, 2024 10:48pm Note Date/Time May 06, 2024 9:40pm [facility] [address] [place] [address] Hospitalist H&P Signed Patient: Flash Irving MR#: [id number] : 1975 Acct:[id number] Age/Sex: 49 / F Adm Date: 4 Loc: Room: [address] [place] [address] Type: ADM IN Attending Dr: Torrey Ocasio MD Copies to: DO Torrey Braun MD Ruta Semaskiene, MD~ HPI DATE OF EXAMINATION: 05/06/24 CHIEF COMPLAINT: Shortness of breath HISTORY OF PRESENT ILLNESS: 49 years old female transferred from [facility] due to shortness of breath. Patient does have a history of pulmonary fibrosis and pulmonary hypertension, she uses 4 to 5 L at rest and 6 with exertion, following with Dr. Santos as well as client engagement specialist in [facility] presented with worsening of shortness of breath. [...] a cardiac catheterization 2 years ago in [place], per patient no significant coronary artery disease [...] in the computer system reviewed Evaluation at [facility] emergency room showed CTA of the chest [...] creatinine 0.7, glucose 123,troponins 5.2 [facility] Medical History (Updated 04/13/24 @ 10:57 by [...] signed by Mira Sun MD> 05/06/24 2248 [facility] Work Phone: 1(591) 165-880509-21-2024 Evaluation note* Diagnosis Onset Date Resolution Status Admit Date Acute and chronic respirator y failure resolved May 06, 2024 6:01pm Hypokalemia resolved April 6:01pm ILD (interstitial lung disease) inactive May 06, 2024 6:01pm Pulmonary hypertension inactive Se pt2023 6:01pm [facility] Work Phone: 1(131) 802-155909-13-2024 Telephone encounter Note* Telephone Encounter - Belkis Richard - 04/28/2024 2:55 PM EDT Fax medical records from [facility] office of Dr Jackson Borrero. Placed at front desk host for review. [facility]09-13-2024 Miscellaneous Notes* Telephone Encounter - Belkis Richard - 04/28/2024 2:55 PM EDT Fax medical records from [facility] office of Dr Jackson Borrero. Placed at front desk host for review. documented in this encounterMarymount Hospital01-23-2024 Evaluation note* Encounter Date Diagnosis Assessment Notes Treatment Notes Treatment Clinical Notes Aug, Pulmonary hypertension (ICD-10 - I27.20) Aug, Chronic interstitial lung disease (ICD-10 - J84.9) Aug, Polymyositis (ICD-10 - M33.20) Aug, Edema of lower extremity (ICD-10 - R60.0) [employer] Other 06-01-2023 Evaluation note* Encounter Date Diagnosis Assessment Notes Treatment Notes Treatment Clinical Notes Jan, Chronic interstitial lung disease (ICD-10 - J84.9) [employer] Other 04-10-2023 Evaluation note* Encounter Date Diagnosis Assessment Notes Treatment Notes Treatment Clinical Notes Nov, Gastroesophageal ref lux disease without esophagitis (ICD-10 - K21.9) [employer] Other 01-24-2023 Evaluation note* Encounter Date Diagnosis Assessment Notes Treatment Notes Treatment Clinical Notes Aug, Pulmonary hypertension (ICD-10 - I27.20) Aug, Chronic interstitial lung disease (ICD-10 - J84.9) Aug, Polymyositis (ICD-10 - M33.20) Aug, Edema of lower extremity (ICD-10 - R60.0) [employer] Other 09-19-2022 Evaluation note* Encounter Date Diagnosis Assessment Notes Treatment Notes Treatment Clinical Notes Apr, Pulmonary fibrosis (ICD-10 - J84.10) [employer] Other 09-06-2022 Evaluation note* Encounter Date Diagnosis Assessment Notes Treatment Notes Treatment Clinical Notes Apr, Pulmonary fibrosis (ICD-10 - J84.10) [employer] Other 07-26-2022 Evaluation note* Encounter Date Diagnosis Assessment Notes Treatment Notes Treatment Clinical Notes Feb, Pulmonary hypertension (ICD-10 - I27.20) Feb, Chronic interstitial lung disease (ICD-10 - J84.9) Feb, Polymyositis (ICD-10 - M33.20) Feb, Edema of lower extremity (ICD-10 - R60.0) [facility] [employer] Other Evaluation noteNortPaoli [facility] [employer] Other Evaluation noteNo InformationNort [email or web address] Other Evaluation noteNo assessment information available [facility] Work Phone: evaluation note* Diagnosis Onset Date Resolution Status Acute and chronic respiratory failure acute Hypokalemia acute Hypomagnesemia acute ILD (interstitial lung disease) acute Pulmonary fibrosis acute Pulmonary hypertension acute [facility] Work Phone: evaluation note* Diagnosis Onset Date Resolution Status ILD (interstitial lung disease) acute Polymyositis acute Pulmonary hypertension acute [facility] Work Phone: Evalusbtoy note* Diagnosis Onset Date Resolution Status ILD (interstitial lung disease) acute Polymyositis acute Pulmonary hypertension acute Acute and chronic respiratory failure acute Hypokalemia acute ILD (interstitial lung disease) acute Pulmonary hypertension acute [facility] Work Phone: Evaluqivhg note* Diagnosis ILD (interstitial lung disease) (CMS/HCC)- Primary Postinflammatory pulmonary fibrosis Pulmonary fibrosis (CMS/HCC) Postinflammatory pulmonary fibrosis Chronic hypoxemic respiratory failure (CMS/HCC) Chronic respiratory failure 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) Bilateral leg edema Edema Other fatigue documented in this encounter [facility]* Diagnosis Nuclear sclerotic cataract, bilateral- Primary Blurry vision, bilateral Other specified visual disturbances Myopia, bilateral Myopia Nuclear sclerotic cataract, bilateral Nuclear sclerotic cataract, bilateral documented [facility] this encounter [facility]* Diagnosis Preoperative examination- Primary Preoperative [...] sclerotic cataract, bilateral documented [facility] this encounter [facility]* Diagnosis Pseudophakia- Primary Lens replaced by other means Nuclear sclerotic cataract, bilateral [facility] this encounter [facility]* Diagnosis Pseudophakia- Primary Lens replaced by other means documented [facility] this encounter [facility]* Diagnosis Pseudophakia- Primary Lens replaced by other means documented [facility] this encounter [facility]* Diagnosis ILD (interstitial lung disease) (CMS/HCC)- Primary Postinflammatory pulmonary fibrosis documented in this encounter [facility] HealthcareEvaluation note* Diagnosis Pseudophakia- Primary Lens replaced by other means documented [facility] this encounter [facility]* Diagnosis ILD (interstitial lung disease) (CMS/HCC)- Primary Postinflammatory pulmonary fibrosis Pulmonary fibrosis (CMS/HCC) 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) Mixed hyperlipidemia (CMS/HCC) Mixed hyperlipidemia Bilateral leg edema Edema Medication management documented in this encounter [facility] HealthcareEvaluation note* Diagnosis Encounter for gynecological examination without abnormal finding Screening for malignant neoplasm of cervix Screening for malignant neoplasm of the cervix Breast cancer screening by mammogram Encounter for surveillance of contraceptive pills documented in this encounter [facility] HealthcareEvaluation note* Diagnosis Onset Date Resolution Status Admit Date Acute hypokalemia acute Februar y 2024 4:23pm Chest pain acute October 04, 2024 4:23pm Pulmonary fibrosis acute Februa ry 2024 4:23pm Pulmonary hypertension acute Fe bruary 2024 4:23pm [facility] Work Phone: Evaluation note* Diagnosis Hypokalemia- Primary Hypopotassemia Palpitations Pulmonary fibrosis (CMS/HCC) Postinflammatory pulmonary fibrosis ILD (interstitial lung disease) (CMS/HCC) 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 Note Date/Time October 04, 2024 5:08pm [facility] [address] [place] [address] Hospitalist H&P Signed Patient: Flash Irving MR#: [id number] : 1975 Acct:[id number] Age/Sex: 49 / F Adm Date: 5 Loc: Room: [address] [place] [address] Type: ADM INOo Attending Dr: Paddy Wiggins MD Copies to: Jabari Celeste,DO Paddy Wiggins MD~ HPI DATE OF EXAMINATION: 10/04/24 CHIEF COMPLAINT: Chest Discomfort HISTORY OF PRESENT ILLNESS: Flash Irving is a 49 y/o F h/o interstitial lung disease, pulmonary hypertension,on remodulin pump and sildenafil, she uses 4 to 5 L at rest and 6 with exertion,following with Dr. Santos as well as client engagement specialist in [facility], presented to [facility] ER from home with sudden onset [...] no loss of motor function [facility] Medical History (Updated 10/04/24 @ 17:02 by [...] % (Auto) 11.9 % (.) 10/04/24 12:50 [place] % (Auto) 6.8 % (.) 10/04/24 12:50 Eos % (Auto) 0.7 % (.) 10/04/24 12:50 Baso % (Auto) 0.4 % (.) 10/04/24 12:50 Nucleat RBC Rel Count 0.1 /100 WBC (0-0.5) 10/04/24 12:50 Neut # (Auto) 8.2 x10E3/uL (1.8-7.7) H 10/04/24 12:50 Lymph # (Auto) 1.2 x10E3/uL (1.00-4.8) 10/04/24 12:50 [place] # (Auto) 0.7 x10E3/uL (0.0-0.8) 10/04/24 12:50 [...] following with Dr. Santos as well as client engagement specialist in [facility], presented to [facility] ER from home with sudden onset [...] signed by Paddy Wiggins MD> 10/04/24 1708 [facility] Work Phone: History general Narrative - [employer] Other History general Narrative - Reported* Type Description Date Medical History polymyositis Medical History pulmonary fibrosis Medical History melanoma Medical History pulmonary hypertension Surgical History bronchoscopy Surgical History muscle biopsy Surgical History melanoma excision Hospitalization History [facility] edema 2020 Hospitalization History [facility] spontaneous pneumot horax 02/2019 Hospitalization History [facility] spontaneous pneumotho rax 04/2019 [employer] Other Hisfqfj general Narrative - Reported* Type Description Date Medical History polymyositis Medical History pulmonary fibrosis Medical History melanoma Medical History pulmonary hypertension Medical History interstitial lung disease Medical History edema Surgical History bronchoscopy Surgical History muscle biopsy Surgical History melanoma excision Surgical History left eye surgery x 2 Hospitalization History [facility] edema 2020 Hospitalization History [facility] spontaneous pneumot horax 02/2019 Hospitalization History [facility] spontaneous pneumotho rax 04/2019 [employer] Other Progress note Author Son Chávez [facility] May 12, 2024 1:18pm Note Date/Time May 12, 2024 1:18pm [facility] [address] [place], [place] [id number] Pulmonology Progress Note Signed Patient: Flash Irving MR#: [id number] : 1975 Acct:[id number] Age/Sex: 49 / F Adm Date: 4 Loc: Room: [address] [place] [address] Type: ADM IN Attending Dr: Letitia Cruz [...] signed by Son Chávez MD> 05/12/24 1318 [facility] Work Phone: Reason for referral (narrative)No reason for referral information [facility] Work Phone: Summary Purpose Family History [...] section and content) DATE CREATED AUTHOR 08/11/2018 [facility] DATE CREATED AUTHOR AUTHOR'S ORGANIZ ATION 08/05/2024 [facility] DATE CREATED AUTHOR AUTHOR'S ORGANIZ ATION 04/11/2025 [facility] DATE CREATED AUTHOR AUTHOR'S ORGANIZ ATION 04/13/2025 [facility] dical Specialists EPIC REASON FOR VISIT (unrecogniz ed section and content) Reason Comments Received Outside Medical Records Reason Comments Hospital Follow-up Pt is [facility] for [facility] from [facility] on 05/12. Discharge summary is in her [...] pap 09-08-23 neg, HPV pos.Last mammogram 09-30-23 [facility]. Denies breast, urinary, or bowel concerns. Breast Problem Would like to discus s mom's recent diagnosis of breast cancer 07/2024, age 76. Had lumpectomy- stage 1. Meeting with oncologist, waiting for PATH to determine treatment. Reason Comments Hospital Follow-up Patient presents tod ay for an [facility] 10/04/24-10/06/24 follow up for SOB and potassium [...] Cherelle Trujillo MD Other Provider Active Start: ebrumaybeury 2023 End: October 16, 2023 Chilo Santos MD Other Provider Active Start: October 12, 2023 End: October 16, 2023 Norah Mullins MD Other Provider Active St art: October 12, 2023 End: October 16, 2023 Tico Beaulieu DO Other Provider Active Start: October 12, 2023 End: October 16, 2023 Nithya Roberts MD Other Provider Active Start: October 12, 2023 End: October 16, 2023 Mat Rodriguez MD Other Provider Active [...] Start: October 12, 2023 Shirley Nicole APRN [facility]- Other Provider Active Start: October 12, 2023 [...] April 13, 2024 End: April 13, 2024 Chief Business Development Officer Relationship Specialty Start Date End Date Jabari Celeste DO [address] [place] [address] PCP - General Internal Medicine 05/11/14 Team [...] Other Provider Active Start: May 07, 2024 Chief Business Development Officer Relationship Specialty Start Date End Date Jabari Celeste DO [address] [place] [address] PCP - Medical [employer] 01/14/15 08/15/99 Jabari Celeste DO [address] [place] [address] PCP - General Internal Medicine 12/22/22 Chief Business Development Officer Relationship Specialty Start Date End Date Jabari Celeste DO [address] [place] [address] PCP - General Internal Medicine 05/11/14 Chief Business Development Officer Relationship Specialty Start Date End Date Jabari Celeste DO [address] [facility] [address] [place] [address] PCP - General Internal Medicine 05/11/14 Chief Business Development Officer Relationship Specialty Start Date End Date Jabari Celeste DO [address] [facility] [address] [place] [address] PCP - General Internal Medicine 05/11/14 Team [...] Provider Active Sta rt: May 07, 2024 Chief Business Development Officer Relationship Specialty Start Date End Date Jabari Celeste DO [address] [facility] [address] [place] [address] PCP - General Internal Medicine 05/11/14 Chief Business Development Officer Relationship Specialty Start Date End Date Jabari Celeste DO [address] [facility] [address] [place] [address] PCP - General Internal Medicine 05/11/14 Chief Business Development Officer Relationship Specialty Start Date End Date Jabari Celeste DO [address] [place] [address] PCP - General Internal Medicine 05/11/14 Chief Business Development Officer Relationship Specialty Start Date End Date Jabari Celeste DO [address] [place] [address] PCP - Medical [employer] 01/14/15 08/15/99 Jabari Celeste DO [address] [place] [address] PCP - General Internal Medicine 12/22/22 Chief Business Development Officer Relationship Specialty Start Date End Date Jabari Celeste DO [address] [place] [address] PCP - Medical [employer] 01/14/15 08/15/99 Jabari Celeste DO [address] [place] [address] PCP - General Internal Medicine 12/22/22 Chief Business Development Officer Relationship Specialty Start Date End Date Jabari Celeste, [address] [place] [address] PCP - General Internal Medicine 05/11/14 Chief Business Development Officer Relationship Specialty Start Date End Date Jabari Celeste, [address] [place] [address] PCP - General Internal Medicine 05/11/14 Chief Business Development Officer Relationship Specialty Start Date End Date Jabari Celeste DO [address] [place] [address] PCP - Medical [employer] 01/14/15 08/15/99 Jabari Celeste DO [address] [place] [address] PCP - General Internal Medicine 12/22/22 Chief Business Development Officer Relationship Specialty Start Date End Date Jabari Celeste DO [address] [place] [address] PCP - Medical [employer] 01/14/15 08/15/99 Jabari Celeste DO [address] [place] [address] PCP - General Internal Medicine 12/22/22 Team [...] Other Provider Active Start: October 05, 2024 Chief Business Development Officer Relationship Specialty Start Date End Date Jabari Celeste DO [address] [place] [address] PCP - Medical [employer] 01/14/15 08/15/99 Jabari Celeste DO [address] [place] [address] PCP - General Internal Medicine 12/22/22 Chief Business Development Officer Relationship Specialty Start Date End Date Jabari Celeste DO [address] [place] [address] PCP - Medical [employer] 01/14/15 08/15/99 Jabari Celeste DO [address] [place] [address] PCP - General Internal Medicine 12/22/22 Team [...] Team Status: Inactive Member Role Status Dates Jbaari Celeste DO Primary Care Provider Active Start: [...] February 07, 2025 End: February 07, 2025 Chief Business Development Officer Relationship Specialty Start Date End Date Jabari Celeste DO [address] [place] [address] PCP - Medical [employer] 01/14/15 08/15/99 Jabari Celeste DO [address] [place] [address] PCP - General Internal Medicine 12/22/22 Chief Business Development Officer Relationship Specialty Start Date End Date Jabari Celeste DO [address] [place] [address] PCP - Medical [employer] 01/14/15 08/15/99 Jabari Celeste DO [address] [place] [address] PCP - General Internal Medicine 12/22/22 Team [...] or prosecute any alcohol or drug abuse patient.[facility] Hospital[facility] the event this information is protected by the Federal Confidentiality of Alcohol and Drug Abuse Patient Records regulations: The Federal rules restrict any use of the information to criminally investigate or prosecute any alcohol or drug abuse patient.[facility] HospitalIn the event this information is protected by the Federal Confidentiality of Alcohol and Drug Abuse Patient Records regulations: The Federal rules restrict any use of the information to criminally investigate or prosecute any alcohol or drug abuse patient.[facility] Hospital[facility] the event this information is protected by the Federal Confidentiality of Alcohol and Drug Abuse Patient Records regulations: The Federal rules restrict any use of the information to criminally investigate or prosecute any alcohol or drug abuse patient.[facility] HospitalIn the event this information is protected by the Federal Confidentiality of Alcohol and Drug Abuse Patient Records regulations: The Federal rules restrict any use of the information to criminally investigate or prosecute any alcohol or drug abuse patient.[facility] HospitalIn the event this information is protected by the Federal Confidentiality of Alcohol and Drug Abuse Patient Records regulations: The Federal rules restrict any use of the information to criminally investigate or prosecute any alcohol or drug abuse patient.[facility] HospitalIn the event this information is protected by the Federal Confidentiality of Alcohol and Drug Abuse Patient Records regulations: The Federal rules restrict any use of the information to criminally investigate or prosecute any alcohol or drug abuse patient.[facility] HospitalIn the event this information is protected by the Federal Confidentiality of Alcohol and Drug Abuse Patient Records regulations: The Federal rules restrict any use of the information to criminally investigate or prosecute any alcohol or drug abuse patient.[facility] HospitalIn the event this information is protected by the Federal Confidentiality of Alcohol and Drug Abuse Patient Records regulations: The Federal rules restrict any use of the information to criminally investigate or prosecute any alcohol or drug abuse patient.[facility] HospitalIn the event this information is protected by the Federal Confidentiality of Alcohol and Drug Abuse Patient Records regulations: The Federal rules restrict any use of the information to criminally investigate or prosecute any alcohol or drug abuse patient.[facility] FOR RECORDS PERTAINING TO PATIENTS WHO [...] BE BASED ON THE PRIMARY CLINICAL RECORDS. [facility]. provides no warranty or guarantee of the accuracy or completeness of information in this document.
--- NOTE | 2025-04-25 23:22 | PC.NURSE ---
As per home
--- NOTE | 2025-04-25 23:23 | ECG_ITS ---
The [facility] Test Date: 2025-04-25 Pat Name: FLASH IRVING Department: Room: - Gender: Female [employer]: : 1975 Requested By: Shubham Daniels Order Number: [id number] Reading MD: AYESHA SEGURA Measurements Intervals Craig Rate: 124 P: 61 CT: 168 QRS: 122 QRSD: 72 T: 36 QT: 308 QTc: 382 Interpretive Statements 1120 Sinus tachycardia 1474 with frequent supraventricular premature complexes 4068 Nonspecific Twave abnormality 5120 Possible right ventricular hypertrophy 9140 abnormal rhythm ECG Compared to ECG 05/06/2024 12:31:38 No significant changes Electronically Signed On 04-26-2025 14:06:41 EDT by AYESHA SEGURA
--- NOTE | 2025-04-25 23:23 | XR_ITS ---
The [address] [address] Patient Name: FLASH IRVING MRN: [id number] date: 1975 Sex: F Assigned Patient Location: ER Current Patient Location: ER Accession/Order Number: [id number] Exam Date: 04/25/2025 23:40 Report Date: 04/25/2025 23:49 At the request of: LD LANDRUM Procedure: XR chest 1V PA CHEST: CLINICAL HISTORY: shortness of breath COMPARISON: CTA chest 05/06/2024 FINDINGS: Mildly enlarged cardiomediastinal silhouette. Right perihilar suprahilar prominence may be related to right hilar vascularity as on recent CT imaging. Multifocal interstitial opacities and subpleural fibrotic changes suspected. Left upper lung emphysema noted corresponding to findings on recent CT chest. XR/XR chest 1V IMPRESSION: Multifocal interstitial thickening, likely chronic with left upper lung emphysema. These are likely chronic findings. No definite acute pleural-parenchymal disease. Impression dictated by: Jose Warren M.D. 04/25/2025 11:49 PM Dictation Location: [place] [address] Electronically authenticated by: [id number] Y Date: 04/25/2025 23:49
--- NOTE | 2025-04-25 23:25 | ED.SOB1 ---
HPI - SOB/Dyspnea General Chief Complaint: Shortness of Breath/Dyspnea Stated Complaint: SOB Time Seen by Provider: 04/25/25 23:13 Source: patient Mode of arrival: ambulance Limitations: no limitations History of Present Illness HPI Narrative: cc - shortness of breath Patient with pulmonary hypertension, pulmonary fibrosis presents with an acute flare of shortness of breath associated with her PH/PF. She sees a electronic repair troubleshooter in [place] at [facility] but the rest of her care team is in [place]. She said that the symptoms came on suddenly tonight - no recent injury or illness, although she did just finish a course of antibiotics to treat a skin infection on her abdomen from the insertion of the subcutaneous pump used to administer her PH med = Remodulin. No fever or chills. No chest pain or palpitations - but her HR is fast. She also told me that when she gets flares , her face turns red, as it is now. Related Data Home Medications ?Medication ?Instructions ?Recorded ?Confirmed furosemide 40 mg tablet 40 mg PO DAILY 04/25/25 04/25/25 mycophenolate mofetil 500 mg tablet 500 mg PO TID 04/25/25 04/25/25 norethindrone 1 mg-ethinyl 1 tab PO DAILY 04/25/25 04/25/25 estradiol 35 mcg tablet (Alyacen) pantoprazole 40 mg tablet,delayed 40 mg PO DAILY 04/26/25 04/26/25 release potassium chloride 20 mEq 20 meq PO DAILY 04/26/25 04/26/25 tablet,extended release prednisone 1 mg tablet 9 mg PO DAILY 04/26/25 04/26/25 rosuvastatin 10 mg tablet 10 mg PO DAILY 04/26/25 04/26/25 sildenafil (pulm.hypertension) 20 20 mg PO Q8H 04/26/25 04/26/25 mg tablet Allergies Allergy/AdvReac Type Severity Reaction Status Date / Time nitroglycerin AdvReac Unknown Verified 04/25/25 23:17 PFSH PFSH Social History Little interest or pleasure in doing things: not at all Feeling down, depressed, or hopeless: not at all Exam Narrative Exam Narrative: Nurses notes and vital signs reviewed and patient is not hypoxic. afebrile General: Mildly distressed. Skin: Warm, dry, no pallor noted. Facial erythema. On her abdomen there is an outline that appears to be from the tape or what ever adhesive she used at the last subcutaneous placement of her pump. Head: Normocephalic, atraumatic. Neck: Supple, non-tender. No cervical lymphadenopathy Eye: Pupils are equal, round and EOMI. No scleral icterus. Ears, Nose, Mouth, and Throat: Oral mucosa is moist Cardiovascular: Tachycardia. Respiratory: Mild accessory muscle use but no respiratory distress. Lungs are diminished bilaterally Musculoskeletal: normal ROM, no calf or popliteal tenderness, no lower extremity edema/swelling GI: Abdomen is soft, non-distended. No tenderness to palpation. No rebound, guarding, or rigidity noted. Neurological: A&O x4. No cranial nerve dysfunction observed. No truncal ataxia. Moves all extremities. Sensation intact. Psychiatric: Cooperative and interactive. Normal mood and affect. Constitutional Vital Signs, click to edit/add: Last Vital Signs Temp 98 F 04/25/25 23:12 Pulse 97 H 04/26/25 06:30 Resp 25 H 04/26/25 06:30 BP 104/75 04/26/25 06:30 Pulse Ox 97 04/26/25 06:30 O2 Del Method Nasal Cannula 04/25/25 23:21 O2 Flow Rate 5 04/25/25 23:21 Course Vital Signs Vital signs: Vital Signs Pulse Rate 127 H 04/25/25 23:10 Respiratory Rate 6 L 04/25/25 23:10 Pulse Oximetry 91 L 04/25/25 23:10 Temperature 98 F 04/25/25 23:12 Pulse Rate 97 H 04/26/25 06:30 Respiratory Rate 25 H 04/26/25 06:30 Blood Pressure 104/75 04/26/25 06:30 Pulse Oximetry 97 04/26/25 06:30 Oxygen Delivery Method Nasal Cannula 04/25/25 23:21 Oxygen Delivery Flow Rate 5 04/25/25 23:21 MDM - SOB/Dyspnea MDM Narrative Medical decision making narrative: Patient was placed on electronic device monitor and EKG obtained. Blood drawn and sent for evaluation. She was maintained on her oxygen. She was ordered to receive IV Solu-Medrol. She told me that albuterol and Atrovent nebulizer treatment and inhalers did not work for her. She said that typically when she has a flare and requires treatment in the emergency department at hospital she gets rkeyng-vqk-llowb steroids through her IV. This patient's case was discussed with Dr. Corley the on-call electronic repair troubleshooter at [facility]. His partner, Dr. Hernandez, apparently sees this patient locally. After discussion we agreed to get a CTA on this patient and the plan is that once the patient's CTA is resulted, the patient be transferred up to [facility] for admission to the hospitalist service with Dr. Corley being a field technical support consultant on the case. CTA did not reveal acute pulmonary embolism. No focal pneumonia was noted. There is parenchymal scarring indicative of the patient's chronic Pulmonary Fibrotic disease. Call placed to the hospitalist service after CTA was resulted and we are still waiting for the hospitalist at a pharmacy to call back to establish transfer to their facility and admission to their service. Pt signed out to Dr Banegas at 7am shift change. Medical Records Attestation: I reviewed the patient's medical records. Medical records narrative: limited - only 2 visits on this EMR - one last week for skin infection/subcutaneous abscess and the other for pneumonia last year with XFer to [facility]. Lab Data Attestation: I reviewed the patient's lab results. Labs: Lab Results 04/26/25 Range/Units 00:51 WBC 17.5 H (4.0-11.0) 10^3/uL RBC 5.56 H (4.20-5.40) 10^6/uL Hgb 14.2 (12.0-16.0) g/dL Hct 44.2 (36.0-48.0) % MCV 79.5 L (81.0-99.0) fL MCH 25.5 L (26.7-34.0) pg MCHC 32.1 (29.9-35.2) g/dL RDW 14.5 (11.0-15.0) % Plt Count 220 (150-450) 10^3/uL MPV 9.3 L (9.5-13.5) fL Neut % (Auto) 71.7 (43.0-75.0) % Lymph % (Auto) 19.1 L (20.5-60.0) % [place] % (Auto) 7.4 (1.7-12.0) % Eos % (Auto) 1.0 (0.9-7.0) % Baso % (Auto) 0.2 (0.2-2.0) % Neut # (Auto) 12.6 H (1.4-6.5) 10^3/uL Lymph # (Auto) 3.3 (1.2-3.8) 10^3/uL [place] # (Auto) 1.3 H (0.3-0.8) 10^3/uL Eos # (Auto) 0.2 (0.0-0.7) 10^3/uL Baso # (Auto) 0.0 (0.0-0.1) 10^3/uL Abs Immat Gran (auto) 0.11 H (0.00-0.03) 10^3/uL Imm/Tot Granulo (auto) 0.6 H (0.0-0.5) % Sodium 142 (136-145) mmol/L Potassium 3.0 L (3.5-5.1) mmol/L Chloride 105 (98-107) mmol/L Carbon Dioxide 24.4 (21.0-32.0) mmol/L Anion Gap 15.6 BUN 14.0 (7.0-18.0) mg/dL Creatinine 0.89 (0.55-1.02) mg/dL Est GFR ( Amer) >60 (>=60 mL/min/1.73m^2) Est GFR (Non-Af Amer) >60 (>=60 mL/min/1.73m^2) BUN/Creatinine Ratio 15.7 Glucose 105 (74-106) mg/dL Lactate 1.6 (0.4-2.0) mmol/L Calcium 9.1 (8.5-10.1) mg/dL Troponin I High Sens 7.0 (4.0-51.3) pg/mL NT-Pro-B Natriuret Pep 131.0 (<=900.0) pg/mL Imaging Data Chest x-ray: Attestation: I have reviewed the pertinent imaging results. Radiologist's impression: ITS Impressions Chest X-Ray 04/25/25 23:23 IMPRESSION: Multifocal interstitial thickening, likely chronic with left upper lung emphysema. These are likely chronic findings. No definite acute pleural-parenchymal disease. Impression dictated by: Jose Warren M.D. 04/25/2025 11:49 PM Dictation Location: [place] [address] Electronically authenticated by: [id number] Y Date: 04/25/2025 23:49 ECG Data Attestation: I personally reviewed and interpreted this ECG as follows: Interpretation: EKG interpretation: Emergency Department physician interpretation. Sinus tachycardia at 124bpm. RVH with nonspecific T wave changes. no ST segment elevation or depression. Discharge Plan Discharge Chief Complaint: Shortness of Breath/Dyspnea Clinical Impression: Pulmonary hypertension Patient Disposition: [facility] Time of Disposition Decision: 03:34 Discharge Location: [facility]
[2025-04-26] VITALS (57 sets, daily range): BP systolic 90–129; BP diastolic 61–83; PULSE 87–151; O2SAT 76–99
[2025-04-26] MEDS: METHYLPREDNISOLONE SOD SUCC PF 125 MG/2 ML VIAL IVP (00:28)
[2025-04-26 01:01] LABS: Hematocrit 44.2 % (36.0-48.0); Hemoglobin 14.2 g/dL (12.0-16.0); Immature Granulocytes Abs Auto 0.11 10^3/uL (0.00-0.03); Immature Granulocytes Pct Auto 0.6 % (0.0-0.5); Lymphocytes Absolute Auto 3.3 10^3/uL (1.2-3.8); Mean Corpuscular HGB Conc 32.1 g/dL (29.9-35.2); Mean Corpuscular Hemoglobin 25.5 pg (26.7-34.0); Mean Corpuscular Volume 79.5 fL (81.0-99.0); Platelet Count 220 10^3/uL (150-450); Red Blood Count 5.56 10^6/uL (4.20-5.40); White Blood Count 17.5 10^3/uL (4.0-11.0)
[2025-04-26 01:20] LABS: Lactate/Lactic Acid 1.6 mmol/L (0.4-2.0)
[2025-04-26 01:23] LABS: Anion Gap 15.6; Blood Urea Nitrogen 14.0 mg/dL (7.0-18.0); Calcium 9.1 mg/dL (8.5-10.1); Carbon Dioxide 24.4 mmol/L (21.0-32.0); Chloride 105 mmol/L (98-107); Estimated GFR (African America >60 (>=60 mL/min/1.73m^2); Estimated GFR (Non-African Ame >60 (>=60 mL/min/1.73m^2); Glucose 105 mg/dL (74-106); NT Pro B Type Natriuretic Pept 131.0 pg/mL (<=900.0); Potassium 3.0 mmol/L (3.5-5.1); Sodium 142 mmol/L (136-145)
[2025-04-26] MEDS: AZITHROMYCIN 500 MG in 0.9 % SODIUM CHLORIDE 250 ML 250 MG IV (02:36)
[2025-04-26] MEDS: 0.9 % SODIUM CHLORIDE 1,000 ML 250 ML IV (03:57)
== END 2025-04-26 10:09 | disposition short-term general hospital (02) ==
PROVIDERS: Emergency Provider Emergency Medicine; PCP Internal Medicine
DX: I27.20 Pulmonary hypertension, unspecified (principal); J84.10 Pulmonary fibrosis, unspecified; R06.02 Shortness of breath; Z79.899 Other long term (current) drug therapy
CPT/HCPCS: 36415; 71045; 71275; 80048; 83605; 83880; 84484; 85025; 87040; 93005; 96365; 96367; 96375; 99285; J0456; J0696; J2919; Q9967